=== PATIENT | male | born 1955 | race Caucasian/White ===

== ENCOUNTER 2019-04-06 19:47 | Emergency (ER) | payer BC ==
[2019-04-06] MEDS ORDERED: Albuterol/Ipratropium 3.0-0.5 MG/3 ML Neb Soln NEB ONE (20:19)
[2019-04-06] MEDS ORDERED: LORazepam 2 MG/ML SDV IVPUSH ONE (20:20)
--- NOTE | 2019-04-06 20:24 | EDM.PDOC ---
ED HPI GENERAL MEDICAL PROBLEM - General Chief Complaint: Cardiovascular Problem Stated Complaint: SOB Time Seen by Provider: 04/06/19 20:09 Source of Information: Reports: Patient History Limitations: Reports: No Limitations - History of Present Illness INITIAL COMMENTS - FREE TEXT/NARRATIVE: 63 y/o male presents to ER with cc sudden on set SOB. He states he was watching TV when it became harder for him to breath. He states he went to [place] today and had a left kidney biopsy. He does have a history of CHF, HTN and he didn't take his medications until late today. He states it is hard for him to take a deep breath. He was 85 % on room air upon arrival. After 2 L NC applied his saturation is 91-94%. He is accompanied by his . Onset: Today, Sudden Onset Date: 04/06/19 Onset Time: 19:30 Duration: Getting Worse Location: Reports: Chest Severity: Mild Improves with: Reports: None Worsens with: Reports: Breathing Associated Symptoms: Reports: Shortness of Breath. 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 (see below) Other Treatments TRUCK GUARD: oxygen Headache Pain Score (Numeric/FACES): 8 Left Flank Pain Score (Numeric/FACES): 6 - Related Data Allergies Allergy/AdvReac Type Severity Reaction Status Date / Time Penicillins Allergy Hives Verified 04/06/19 22:13 Sulfa (Sulfonamide Allergy Hives Verified 04/06/19 22:13 Antibiotics) Home Meds: Home Meds Albuterol [Ventolin HFA] 2 puff INH Q4H PRN #1 inhaler 06/18/18 [Rx] FLUoxetine HCl [Prozac] 10 mg PO DAILY 06/18/18 [History] Potassium Chloride [Klor-Con 10] 10 meq PO DAILY 09/13/18 [History] Tresiba 22 unit SQ DAILY 09/13/18 [History] Carvedilol [Coreg] 12.5 mg PO BID #0 09/19/18 [Rx] Cholecalciferol (Vitamin D3) [Vitamin D3] 1,000 unit PO DAILY #30 tablet [Rx] Eplerenone [Inspra] 12.5 mg PO DAILY #30 tab 09/19/18 [Rx] Furosemide 40 mg PO ASDIRECTED #0 09/19/18 [Rx] Hydrocodone/Acetaminophen [[place] 5-325 Tablet] 1 each PO Q6H #16 tablet [Rx] Lisinopril 10 mg PO DAILY #30 tablet 09/19/18 [Rx] Nicotine [Habitrol] 21 mg TRDERM DAILY #30 patch 09/19/18 [Rx] Rosuvastatin [Crestor] 10 mg PO BEDTIME #30 tablet 09/19/18 [Rx] amLODIPine Besylate [Amlodipine Besylate] 5 mg PO DAILY #0 09/19/18 [Rx] hydroCHLOROthiazide [Hydrochlorothiazide] 12.5 mg PO BID #0 09/19/18 [Rx] Past Medical History HEENT History: Reports: Hard of Hearing, Impaired Vision Other HEENT History: wears eyeglasses for driving only, left glasses at home Cardiovascular History: Reports: Hypertension Respiratory History: Reports: COPD Genitourinary History: Reports: Prostate Disorder Other Genitourinary History: Braccia procedure.; left kidney biopsy Neurological History: Reports: Migraines Psychiatric History: Reports: Anxiety Endocrine/Metabolic History: Reports: Diabetes, Type II Oncologic (Cancer) History: Reports: Prostate - Past Surgical History Cardiovascular Surgical History: Reports: None GI Surgical History: Reports: Appendectomy Social & Family History - Family History Family Medical History: Noncontributory Cardiac: Reports: Heart Failure Respiratory: Reports: Asthma - Caffeine Use Caffeine Use: Reports: Coffee, Tea - Living Situation & Occupation Living situation: Reports: Occupation: Employed ED ROS GENERAL - Review of Systems Review Of Systems: See Below Constitutional: Denies: Fever, Chills HEENT: Reports: No Symptoms Respiratory: Reports: Shortness of Breath Cardiovascular: Reports: Dyspnea on Exertion. Denies: Chest Pain Endocrine: Reports: No Symptoms GI/Abdominal: Reports: No Symptoms, Other ED EXAM, GENERAL - Physical Exam Exam: See Below Exam Limited By: No Limitations General Appearance: Alert, WD/WN, No Apparent Distress Respiratory/Chest: Decreased Breath Sounds, Crackles, Wheezing, Accessory Muscle Use Cardiovascular: Normal Peripheral Pulses, Irregularly Irregular GI/Abdominal: Normal Bowel Sounds, Soft, Non-Tender, No Organomegaly, No Distention, No Abnormal Bruit, No Mass, Pelvis Stable Back Exam: Normal Inspection, Full Range of Motion Extremities: Normal Inspection, Normal Range of Motion, Non-Tender, No Pedal Edema, Normal Capillary Refill Neurological: Alert, Oriented, CN II-XII Intact, Normal Cognition, Normal Gait Psychiatric: Normal Affect, Anxious Skin Exam: Warm, Dry, Intact, Normal Color, No Rash Lymphatic: No Adenopathy EKG INTERPRETATION EKG Date: 04/06/19 Time: 20:01 Rhythm: Other (sinus tachycardia) Rate (Beats/Min): 105 EKG Interpretation Comments: sinus tachycardia at 105 min. multiple unifocal pvc's trigeminy. Early r wave transition consider septal hypertrophy. T wave flatteing AVL lt atrial enlargement QTC mildly prolonged. Course - Vital Signs Last Recorded V/S: Last Vital Signs Temp 98.8 F 04/06/19 20:07 Pulse 104 H 04/06/19 20:07 Resp 30 H 04/06/19 20:07 BP 172/94 H 04/06/19 22:38 Pulse Ox 94 L 04/06/19 20:30 - Orders/Labs/Meds Orders: Active Orders 24 hr Category Date Time Status EKG Documentation Completion [RC] STAT Care 04/06/19 20:10 Active RT Aerosol Therapy [RC] ASDIRECTED Care 04/06/19 20:19 Active Abdomen Pelvis w Cont [CT] Stat Exams 04/06/19 22:23 Taken Chest 2V [CR] Stat Exams 04/06/19 20:10 Taken Furosemide [Lasix] Med 04/06/19 20:30 Active 40 mg IVPUSH DAILY Sodium Chloride 0.9% [Normal Saline] 100 ml Med 04/06/19 22:45 Active IV ASDIRECTED Sodium Chloride 0.9% [Saline Flush] Med 04/06/19 22:41 Active 10 ml FLUSH ONETIME PRN amLODIPine [Norvasc] Med 04/06/19 22:34 Active 10 mg PO BEDTIME Medication Orders Amlodipine Besylate (Norvasc) 10 mg PO BEDTIME [facility] Last Admin: 04/06/19 22:38 Dose: 10 mg Furosemide (Lasix) 40 mg IVPUSH DAILY [facility] Last Admin: 04/06/19 20:26 Dose: 40 mg Sodium Chloride (Normal Saline) 100 mls @ 75 mls/hr IV ASDIRECTED [facility] Last Admin: 04/06/19 22:59 Dose: 75 mls/hr Sodium Chloride (Saline Flush) 10 ml FLUSH ONETIME PRN PRN Reason: IV FLUSH Last Admin: 04/06/19 22:59 Dose: 10 ml Labs: Laboratory Tests 04/06/19 04/06/19 04/06/19 Range/Units 20:10 20:10 20:10 WBC 11.54 H (4.23-9.07) K/mm3 RBC 4.71 (4.63-6.08) M/mm3 Hgb 13.2 L (13.7-17.5) gm/L Hct 40.9 (40.1-51.0) % MCV 86.8 (79.0-92.2) fl MCH 28.0 (25.7-32.2) pg MCHC 32.3 (32.2-35.5) g/dl RDW Std Deviation 44.2 H (35.1-43.9) fL Plt Count 190 (163-337) K/mm3 MPV 11.0 (9.4-12.3) fl Neut % (Auto) 72.2 H (34.0-67.9) % Lymph % (Auto) 13.4 L (21.8-53.1) % [place] % (Auto) 10.1 (5.3-12.2) % Eos % (Auto) 3.6 (0.8-7.0) Baso % (Auto) 0.4 (0.1-1.2) % Neut # (Auto) 8.33 H (1.78-5.38) K/mm3 Lymph # (Auto) 1.55 (1.32-3.57) K/mm3 [place]assen # (Auto) 1.17 H (0.30-0.82) K/mm3 Eos # (Auto) 0.41 (0.04-0.54) K/mm3 Baso # (Auto) 0.05 (0.01-0.08) K/mm3 Sodium 142 (136-145) mEq/L Potassium 4.2 (3.5-5.1) mEq/L Chloride 107 (98-107) mEq/L Carbon Dioxide 24 (21-32) mEq/L Anion Gap 15.2 H (5-15) BUN 27 H (7-18) mg/dL Creatinine 1.4 H (0.7-1.3) mg/dL Est Cr Clr Drug Dosing 57.21 mL/min Estimated GFR (MDRD) 52 (>60) mL/min BUN/Creatinine Ratio 19.3 H (14-18) Glucose 166 H (80-115) mg/dL Calcium 8.9 (8.5-10.1) mg/dL Total Bilirubin 0.6 (0.2-1.0) mg/dL AST 33 (15-37) U/L ALT 38 (16-63) U/L Alkaline Phosphatase 118 H (46-116) U/L NT-Pro-B Natriuret Pep 2888 H (0-125) pg/mL Total Protein 7.1 (6.4-8.2) g/dl Albumin 3.4 (3.4-5.0) g/dl Globulin 3.7 gm/dL Albumin/Globulin Ratio 0.9 L (1-2) Meds: Medications Generic Name Dose Route Start Last Admin Trade Name Karen PRN Reason Stop Dose Admin Amlodipine Besylate 10 mg 04/06/19 22:34 04/06/19 22:38 Norvasc PO 10 mg BEDTIME [facility] Administration Furosemide 40 mg 04/06/19 20:30 04/06/19 20:26 Lasix IVPUSH 40 mg DAILY [facility] Administration Sodium Chloride 100 mls @ 75 mls/hr 04/06/19 22:45 04/06/19 22:59 Normal Saline IV 75 mls/hr ASDIRECTED [facility] Administration Sodium Chloride 10 ml 04/06/19 22:41 04/06/19 22:59 Saline Flush FLUSH 10 ml ONETIME PRN Administration IV FLUSH Discontinued Medications Generic Name Dose Route Start Last Admin Trade Name Karen PRN Reason Stop Dose Admin Albuterol/Ipratropium 3 ml 04/06/19 20:19 04/06/19 20:28 Duoneb 3.0-0.5 Mg/3 Ml NEB 04/06/19 20:20 3 ml ONETIME ONE Administration Amlodipine Besylate 10 mg 04/06/19 21:00 Norvasc PO BEDTIME [facility] Hydralazine HCl 10 mg 04/06/19 20:55 04/06/19 21:12 Apresoline IVPUSH 04/06/19 20:56 10 mg ONETIME ONE Administration Hydralazine HCl 10 mg 04/06/19 22:25 04/06/19 22:33 Apresoline IVPUSH 04/06/19 22:26 10 mg ONETIME ONE Administration Iohexol 100 ml 04/06/19 22:41 04/06/19 22:59 Omnipaque-300 IVPUSH 04/06/19 22:42 80 ml ONETIME ONE Administration Lorazepam 1 mg 04/06/19 20:20 04/06/19 20:27 Ativan IVPUSH 04/06/19 20:21 1 mg ONETIME ONE Administration - Re-Assessments/Exams Free Text/Narrative Re-Assessment/Exam: 04/06/19 22:52 WBC 11.54 RBC 4.71 H & H 13.2/40.9 Na+ 142 K + 4.2 chl 107 co2 24 bun 27 creatine 1.4 gfr 52 glucose 166 alk phos 118 BNP 2888. cxr revealed left lower lobe vascular congestion. Patient is resting comfortably after receiving medications. His B/P remains elevated 180/99 I will add Norvasc 10 and additional dose of hydralazine 10 mg ivp. 04/06/19 22:55 He continues to have low saturation on room air 90%. I will get a abdominal CT for further evaluation 04/06/19 23:[address] reveals no acute findings. I will discharge home with instructions to take Lasix in am as scheduled with extra dose at 1400. Instructed him to take his B/P medications as prescribed. Instructed to return to the ER for any new or acute worsening symptoms. Patient and verbalized understanding. He is stable and comfortable with plan for discharge. His oxygen saturation is 94 % on room air. Departure - Departure Time of Disposition: 23:28 Disposition: Home, Self-Care 01 Condition: Good Clinical Impression: Hypertensive heart disease Qualifiers: Heart failure presence: with heart failure Heart failure type: unspecified Qualified Code(s): I11.0 - Hypertensive heart disease with heart failure Congestive heart failure (CHF) Qualifiers: Heart failure type: unspecified Heart failure chronicity: acute Qualified Code( s): I50.9 - Heart failure, unspecified Instructions: Shortness of Breath, Adult, [id number], Heart Failure Action Plan, Hypertension, [id number], Heart Failure Referrals: Roxie Alfaro DOOR PANELER [Primary Care Provider] - Forms: ED Department Discharge Additional Instructions: You have been diagnosis with hypertension and congestive heart failure. Take your Lasix as prescribed in the morning and take a extra dose at 1400 tomorrow only. Follow up with your PCP for evaluation and treatment for your hypertension. Return to the ER for any new or acute worsening symptoms. - My Orders Last 24 Hours: My Active Orders 04/06/19 20:10 EKG Documentation Completion [RC] STAT Chest 2V [CR] Stat 04/06/19 20:19 RT Aerosol Therapy [RC] ASDIRECTED 04/06/19 20:30 Furosemide [Lasix] 40 mg IVPUSH DAILY 04/06/19 22:23 Abdomen Pelvis w Cont [CT] Stat 04/06/19 22:34 amLODIPine [Norvasc] 10 mg PO BEDTIME 04/06/19 22:41 Sodium Chloride 0.9% [Saline Flush] 10 ml FLUSH ONETIME PRN 04/06/19 22:45 Sodium Chloride 0.9% [Normal Saline] 100 ml IV ASDIRECTED - Assessment/Plan Last 24 Hours: My Active Orders 04/06/19 20:10 EKG Documentation Completion [RC] STAT Chest 2V [CR] Stat 04/06/19 20:19 RT Aerosol Therapy [RC] ASDIRECTED 04/06/19 20:30 Furosemide [Lasix] 40 mg IVPUSH DAILY 04/06/19 22:23 Abdomen Pelvis w Cont [CT] Stat 04/06/19 22:34 amLODIPine [Norvasc] 10 mg PO BEDTIME 04/06/19 22:41 Sodium Chloride 0.9% [Saline Flush] 10 ml FLUSH ONETIME PRN 04/06/19 22:45 Sodium Chloride 0.9% [Normal Saline] 100 ml IV ASDIRECTED
[2019-04-06] MEDS ORDERED: Furosemide 40 MG/4 ML VIAL IVPUSH SCH (20:30)
[2019-04-06] MEDS ORDERED: hydrALAZINE 20 MG/ML SDV IVPUSH ONE ×2 (20:55→22:25)
[2019-04-06] MEDS ORDERED: amLODIPine 10 MG Tab PO SCH ×2 (21:00→22:34)
[2019-04-06] MEDS ORDERED: Iohexol 647 MG/ML 100 ML Bottle IVPUSH ONE (22:41)
[2019-04-06] MEDS ORDERED: Sodium Chloride 0.9% 10 ML Syringe FLUSH PRN (22:41)
[2019-04-06] MEDS ORDERED: Sodium Chloride 0.9% 100 ML IV SCH (22:45)
--- NOTE | 2019-04-09 07:28 | CR ---
Chest: Two views of the chest are obtained. Comparison: Prior chest x-ray of 02/09/19. Heart size is felt to be within normal limits. Increased perihilar markings are noted. Tortuous thoracic aorta is seen. Chronic blunting of the lateral costophrenic angle is seen. Bony structures are within normal limits for the patient's age. Impression: 1. Increased central lung markings. Please correlate if patient has infectious symptoms for this to represent bronchitis. Differential also includes pulmonary vascular congestion if patient has had acute cardiac event. 2. No other acute abnormality is seen. Diagnostic code #3
--- NOTE | 2019-04-09 08:04 | CT ---
CT abdomen and pelvis Technique: Multiple axial sections were obtained from above the dome of the diaphragm inferiorly to the iliac crests. Study was obtained 45 seconds after contrast administration. 70 second delayed images were then obtained from above the dome of the diaphragm inferiorly to the iliac crest. 5 minute delayed images were then obtained from above the kidneys inferiorly through the pubic symphysis. Comparison: No prior CT abdomen or pelvis exam. Previous renal ultrasound study of 11/28/18. Findings: Small portion of the visualized lung bases shows minimal atelectasis. Liver contains a small low density finding within the left lobe measuring approximately 9 mm. This is most likely due to a minimal cyst. No additional abnormality is appreciated within the liver. Gallbladder contains no calcified gallstones. Spleen appears within normal limits. Adrenal glands show no nodule. Pancreas is within normal limits. Aorta shows atherosclerotic calcification without aneurysm. Mildly prominent lymph nodes are seen within the retroperitoneum. Largest lymph node measures about 1.5 cm in size. Inflammatory change is noted around the inferior left kidney compatible with previous renal biopsy. No hematoma is seen. Small amount of air is seen within the retroperitoneum compatible with previous biopsy. Delayed images show no contrast extravasation from the kidneys. Ureters show contrast with no dilatation. No obstruction is seen with contrast seen within the bladder. Prostate radiation implants are noted. No bowel dilatation is seen. No free fluid is seen. Bone window settings were reviewed which show scattered degenerative change within the spine. Mild diverticuli are seen within the sigmoid and descending colon without diverticulitis. Appendix not definitely visualized. Impression: 1. Slight inflammatory change around the left lower kidney compatible with previous biopsy. Air is noted within the retroperitoneal fat around the left kidney compatible with previous biopsy. No significant perinephric hematoma is seen. 2. Mild atelectasis within both lung bases. 3. Mildly prominent retroperitoneal lymph nodes which are nonspecific. Follow-up CT study could be considered in 6 months to evaluate for stability. 4. Other incidental findings as noted above. Diagnostic code #3 I agree with preliminary report from [facility], finalized on 04/07/19, 12:45 AM Central Time
== END 2019-04-06 23:45 | disposition home or self-care (01) ==
LOC: JD.ED 19:47
DX: I11.0 Hypertensive heart disease with heart failure (principal); I50.9 Heart failure, unspecified; J44.9 Chronic obstructive pulmonary disease, unspecified; E11.9 Type 2 diabetes mellitus without complications; Z79.899 Other long term (current) drug therapy; Z88.0 Allergy status to penicillin; Z88.2 Allergy status to sulfonamides
CPT/HCPCS: 36415; 71046; 74177; 80053; 83880; 85025; 93005; 94640; 96374; 96375; 96376; 99285; A9270; J0360; J1940; J2060; J7030; Q9967; 93010; 99284; J7620-GY

== ENCOUNTER 2019-05-22 18:56 | Inpatient (IN) | payer BC ==
--- NOTE | 2019-05-22 21:38 | EDM.PDOC ---
ED HPI GENERAL MEDICAL PROBLEM - General Chief Complaint: Cardiovascular Problem Stated Complaint: CHEST PAIN Time Seen by Provider: 05/22/19 21:19 Source of Information: Reports: Patient, Old Records, RN Notes Reviewed History Limitations: Reports: No Limitations - History of Present Illness INITIAL COMMENTS - FREE TEXT/NARRATIVE: The patient states that he has had shortness of breath, both with exertion and even at rest, coming and going for the past week. He reports mild orthopnea that is chronic, and unchanged. He reports lower extremity edema for within 2 months. 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 He reports a dry cough, occasionally productive of clear sputum, for the past week. He reports nausea and vomiting for the past month. He states that he sometimes feels clammy or sweaty. The patient also reports a squeezing sensation felt across his chest along with a retrosternal dull ache, that has been coming and going over the past week. He states it is a discomfort, not a pain. The discomfort will typically last about one hour, and recur several times a day. It may come on even if the patient is at rest, although is most likely to occur if the patient is feeling stressed or angry. He has had 3-4 episodes today, and he reports that he has had increased stress and anger today, because his left him today. He denies similar symptoms prior to a week ago. The patient is not sure if he has been wheezing or not. He has not had a fever. He reports occasional palpitations, noting some irregular beats, for the past 2 weeks. The patient has a long-standing history of smoking, but states that he quit ( more or less) about 2 weeks ago. The patient has a history of diastolic CHF. An echocardiogram performed on 09/14 (gleaned from a progress note 09/15/2018) reportedly demonstrated a left ventricular ejection fraction of 55-60%, but with grade 2 diastolic CHF. There was probable pulmonary hypertension, and a septal bounce thought due to increased RV pressure. Also noted was septal flattening and a D-shaped left ventricle, however, there were no regional wall motion defects. The patient's PCP is Roxie Alfaro. He has an appointment to see her this coming 05/25/2019 at 07:30. The patient's Psychiatrist is in [place]. He does not recall her name at this time. Chest Pain Score (Numeric/FACES): 6 - Related Data Allergies Allergy/AdvReac Type Severity Reaction Status Date / Time Penicillins Allergy Hives Verified 04/06/19 22:13 Sulfa (Sulfonamide Allergy Hives Verified 04/06/19 22:13 Antibiotics) Home Meds: Home Meds Albuterol [Ventolin HFA] 2 puff INH Q4H PRN #1 inhaler 06/18/18 [Rx] FLUoxetine HCl [Prozac] 10 mg PO BEDTIME 06/18/18 [History] Carvedilol [Coreg] 12.5 mg PO BID #0 09/19/18 [Rx] Cholecalciferol (Vitamin D3) [Vitamin D3] 1,000 unit PO DAILY #30 tablet [Rx] Eplerenone [Inspra] 12.5 mg PO DAILY #30 tab 09/19/18 [Rx] Furosemide 40 mg PO ASDIRECTED #0 09/19/18 [Rx] Rosuvastatin [Crestor] 10 mg PO BEDTIME #30 tablet 09/19/18 [Rx] Albuterol Sulfate [Proair Respiclick] 90 mcg IH BID 60 Days [email or web address] [Rx] Losartan [Cozaar] 100 mg PO DAILY tablet 05/23/19 [Rx] Nicotine [Nicoderm CQ] 7 mg TD DAILY #30 patch 05/23/19 [Rx] Tresiba 20 unit SQ ASDIRECTED PRN 90 Days #90 device 05/23/19 [Rx] amLODIPine [Norvasc] 5 mg PO DAILY #90 tablet 05/23/19 [Rx] Past Medical History HEENT History: Reports: Hard of Hearing, Impaired Vision (diabetic retinopathy) Other HEENT History: wears eyeglasses for driving only Cardiovascular History: Reports: Heart Failure (diastolic), High Cholesterol, Hypertension Respiratory History: Reports: Sleep Apnea (nightly CPAP 9) Gastrointestinal History: Reports: Diverticulosis (diverticulitis) Genitourinary History: Reports: Diabetic Nephropathy Musculoskeletal History: Reports: Arthritis (right thumb) Neurological History: Reports: Migraines Psychiatric History: Reports: Anxiety, Depression Endocrine/Metabolic History: Reports: Diabetes, Type II, Obesity/BMI 30+ Oncologic (Cancer) History: Reports: Prostate (s/p brachytherapy) - Past Surgical History GI Surgical History: Reports: Appendectomy, EGD (x 1). Denies: Colonoscopy Male Surgical History: Reports: Other (See Below) (Left kidney biopsy) Oncologic Surgical History: Reports: Other (See Below) (Prostate brachytherapy) Social & Family History - Family History Family Medical History: Noncontributory Cardiac: Reports: Heart Failure Respiratory: Reports: Asthma - Tobacco Use Smoking Status *Q: Current Every Day Smoker Years of Tobacco use: 48 Packs/Tins Daily: 3 - Caffeine Use Caffeine Use: Reports: Coffee, Energy Drinks, Soda - Alcohol Use Alcohol Use History: Yes Alcohol Use Frequency: Rarely - Recreational Drug Use Recreational Drug Use: Yes Drug Use in Last 12 Months: Yes Recreational Drug Type: Reports: Marijuana/Hashish (CBD oil) - Living Situation & Occupation Living situation: Reports: , with Spouse 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 ED EXAM, GENERAL - Physical Exam Exam: See Below Exam Limited By: No Limitations General Appearance: Alert, WD/WN, No Apparent Distress Eye Exam: Bilateral Eye: EOMI, Normal Inspection Ears: Normal External Exam, Hearing Grossly Normal Nose: Normal Inspection Throat/Mouth: Normal Inspection, Normal Lips, Normal Voice, No Airway Compromise Head: Atraumatic, Normocephalic Neck: Normal Inspection, Full Range of Motion Respiratory/Chest: No Respiratory Distress, Lungs Clear, Normal Breath Sounds, No Accessory Muscle Use Cardiovascular: Normal Peripheral Pulses, Regular Rate, Rhythm, No Gallop, No JVD, No Murmur, No Rub, Extra Beats (frequent premature) Peripheral Pulses: 4+: Radial (L), Radial (R) GI/Abdominal: Normal Bowel Sounds, Soft, Non-Tender, No Organomegaly, No Distention, No Abnormal Bruit, No Mass, Other (Obese) (Male) Exam: Deferred Rectal (Males) Exam: Deferred Back Exam: Normal Inspection, Full Range of Motion, NT Extremities: Normal Inspection, Normal Range of Motion, Normal Capillary Refill , Other (2+ pitting pretibial edema bilaterally) Neurological: Alert, Oriented, Normal Cognition, No Motor/Sensory Deficits Psychiatric: Normal Affect Skin Exam: Warm, Dry, Intact, Normal Color, No Rash EKG INTERPRETATION EKG Date: 05/22/19 Time: 19:06 Rhythm: Other (Sinus tachycardia with bigeminy/trigeminy) Rate (Beats/Min): 102 Water View: Normal P-Wave: Present QRS: Normal ST-T: Normal QT: Prolonged (QTc 518 ms) Comparison: No Change (Trigeminy on 04/06/2019) Course - Vital Signs Last Recorded V/S: Last Vital Signs Temp 36.2 C 05/23/19 12:43 Pulse 85 05/23/19 12:43 Resp 14 05/23/19 12:43 BP 149/94 H 05/23/19 12:44 Pulse Ox 99 05/23/19 12:43 - Orders/Labs/Meds Labs: Laboratory Tests 05/22/19 05/22/19 05/22/19 Range/Units 19:05 19:05 19:05 WBC 9.23 H (4.23-9.07) K/mm3 RBC 4.46 L (4.63-6.08) M/mm3 Hgb 12.7 L (13.7-17.5) gm/L Hct 39.8 L (40.1-51.0) % MCV 89.2 (79.0-92.2) fl MCH 28.5 (25.7-32.2) pg MCHC 31.9 L (32.2-35.5) g/dl RDW Std Deviation 48.2 H (35.1-43.9) fL Plt Count 193 (163-337) K/mm3 MPV 11.9 (9.4-12.3) fl Neutrophils % (Manual) 67 H (40-60) % Band Neutrophils % 0 (0-10) % Lymphocytes % (Manual) 18 L (20-40) % Atypical Lymphs % 0 % Monocytes % (Manual) 11 H (2-10) % Eosinophils % (Manual) 2 (0.8-7.0) % Basophils % (Manual) 1 (0.2-1.2) Myelocytes % 1 Platelet Estimate Adequate Plt Morphology Comment Normal RBC Morph Comment Normal D-Dimer, Quantitative (0.19-0.50) mg/L Sodium 145 (136-145) mEq/L Potassium 4.2 (3.5-5.1) mEq/L Chloride 108 H (98-107) mEq/L Carbon Dioxide 26 (21-32) mEq/L Anion Gap 15.2 H (5-15) BUN 35 H (7-18) mg/dL Creatinine 1.7 H (0.7-1.3) mg/dL Est Cr Clr Drug Dosing 47.12 mL/min Estimated GFR (MDRD) 41 (>60) mL/min BUN/Creatinine Ratio 20.6 H (14-18) Glucose 139 H (80-115) mg/dL Calcium 9.3 (8.5-10.1) mg/dL Total Bilirubin 0.8 (0.2-1.0) mg/dL AST 30 (15-37) U/L ALT 36 (16-63) U/L Alkaline Phosphatase 117 H (46-116) U/L Troponin I 0.027 (0.00-0.056) ng/mL NT-Pro-B Natriuret Pep 7319 H (0-125) pg/mL Total Protein 7.1 (6.4-8.2) g/dl Albumin 3.4 (3.4-5.0) g/dl Globulin 3.7 gm/dL Albumin/Globulin Ratio 0.9 L (1-2) 05/22/19 Range/Units 19:05 WBC (4.23-9.07) K/mm3 RBC (4.63-6.08) M/mm3 Hgb (13.7-17.5) gm/L Hct (40.1-51.0) % MCV (79.0-92.2) fl MCH (25.7-32.2) pg MCHC (32.2-35.5) g/dl RDW Std Deviation (35.1-43.9) fL Plt Count (163-337) K/mm3 MPV (9.4-12.3) fl Neutrophils % (Manual) (40-60) % Band Neutrophils % (0-10) % Lymphocytes % (Manual) (20-40) % Atypical Lymphs % % Monocytes % (Manual) (2-10) % Eosinophils % (Manual) (0.8-7.0) % Basophils % (Manual) (0.2-1.2) Myelocytes % Platelet Estimate Plt Morphology Comment RBC Morph Comment D-Dimer, Quantitative 1.30 H (0.19-0.50) mg/L Sodium (136-145) mEq/L Potassium (3.5-5.1) mEq/L Chloride (98-107) mEq/L Carbon Dioxide (21-32) mEq/L Anion Gap (5-15) BUN (7-18) mg/dL Creatinine (0.7-1.3) mg/dL Est Cr Clr Drug Dosing mL/min Estimated GFR (MDRD) (>60) mL/min BUN/Creatinine Ratio (14-18) Glucose (80-115) mg/dL Calcium (8.5-10.1) mg/dL Total Bilirubin (0.2-1.0) mg/dL AST (15-37) U/L ALT (16-63) U/L Alkaline Phosphatase (46-116) U/L Troponin I (0.00-0.056) ng/mL NT-Pro-B Natriuret Pep (0-125) pg/mL Total Protein (6.4-8.2) g/dl Albumin (3.4-5.0) g/dl Globulin gm/dL Albumin/Globulin Ratio (1-2) Meds: Medications Discontinued Medications Generic Name Dose Route Start Last Admin Trade Name Freq PRN Reason Stop Dose Admin Albuterol 0 gm 05/23/19 01:22 Proventil Hfa INH Q4H PRN WHEEZING Amlodipine Besylate 5 mg 05/23/19 00:08 05/23/19 00:14 Norvasc PO 05/23/19 00:09 5 mg ONETIME ONE Administration Amlodipine Besylate 5 mg 05/23/19 06:30 05/23/19 06:45 Norvasc PO 5 mg DAILY [facility] Administration Amlodipine Besylate 5 mg 05/23/19 08:08 05/23/19 08:10 Norvasc PO 05/23/19 08:09 5 mg ONETIME ONE Administration Carvedilol 12.5 mg 05/23/19 07:00 05/23/19 06:15 Coreg PO 12.5 mg BIDMEALS [facility] Administration Carvedilol 12.5 mg 05/23/19 06:33 05/23/19 06:45 Coreg PO 05/23/19 06:34 12.5 mg ONETIME ONE Administration Cholecalciferol 25 mcg 05/23/19 09:00 05/23/19 09:41 Vitamin D3 PO 25 mcg DAILY [facility] Administration Clonidine HCl 0.1 mg 05/22/19 22:59 05/22/19 23:14 Catapres PO 05/22/19 23:00 0.1 mg ONETIME ONE Administration Fluoxetine HCl 10 mg 05/23/19 09:00 05/23/19 09:42 Prozac PO 10 mg DAILY [facility] Administration Furosemide 40 mg 05/22/19 23:27 05/22/19 23:47 Lasix IVPUSH 05/22/19 23:28 40 mg NOW ONE Administration Furosemide 40 mg 05/23/19 01:00 Lasix PO ASDIRECTED [facility] Furosemide 40 mg 05/23/19 06:29 05/23/19 06:45 Lasix IVPUSH 05/23/19 06:30 40 mg NOW ONE Administration Lisinopril 10 mg 05/23/19 09:00 Prinivil PO DAILY [facility] Losartan Potassium 100 mg 05/23/19 09:00 05/23/19 09:41 Cozaar PO 100 mg DAILY [facility] Administration Metoprolol Tartrate 5 mg 05/23/19 00:49 05/23/19 01:06 Lopressor IVPUSH 05/23/19 00:50 5 mg ONETIME ONE Administration Miscellaneous Information 1 ea 05/23/19 09:00 Remove Patch TRDERM DAILY [facility] Miscellaneous Information 1 ea 05/23/19 09:00 05/23/19 09:43 Remove Patch TRDERM 1 ea DAILY [facility] Administration Nicotine 14 mg 05/23/19 09:00 Habitrol TRDERM DAILY [facility] Nicotine 21 mg 05/23/19 09:00 Habitrol TRDERM DAILY [facility] Nicotine 21 mg 05/23/19 02:00 05/23/19 09:43 Habitrol TRDERM 21 mg DAILY [facility] Administration Non-Formulary Medication 20 unit 05/23/19 01:00 Tresiba SQ ASDIRECTED [facility] Eplerenone [Inspra] 0 each 05/23/19 09:00 05/23/19 09:42 12.5 Mg PO Not Given DAILY [facility] Potassium Chloride 10 meq 05/23/19 09:00 05/23/19 09:42 Klor-Con 10 PO 10 meq DAILY [facility] Administration Regadenoson 0.4 mg 05/23/19 08:31 05/23/19 08:39 Lexiscan IVPUSH 05/23/19 08:32 0.4 mg ONETIME ONE Administration Rosuvastatin Calcium 10 mg 05/23/19 21:00 Crestor PO BEDTIME [facility] Sodium Chloride 10 ml 05/23/19 00:42 Saline Flush FLUSH ASDIRECTED PRN Keep Vein Open Temazepam 15 mg 05/23/19 00:42 05/23/19 01:51 Restoril PO 15 mg BEDTIME PRN Administration Sleep - Re-Assessments/Exams Free Text/Narrative Re-Assessment/Exam: 05/22/19 21:31 Portable chest radiograph reviewed. The cardiac silhouette is at the upper limits of normal. There is likely mild pulmonary vascular congestion. There is some blunting of the left costophrenic angle, but no obvious pleural effusion seen on this AP view. No focal infiltrate. No pneumothorax. Mild thoracic scoliosis incidentally noted. Formal read per the Radiologist pending. 05/22/19 22:38 The patient's CBC is remarkable for WBC count mildly elevated at 9.23, but with 0% bandemia. His H/H is mildly depressed at 12.7/39.8. The remainder of the CBC is unremarkable. His CMP is remarkable for chloride slightly elevated at 108, BUN/Cr elevated at 35/1.7, and a blood glucose elevated at 139. The remainder of the CMP is unremarkable. His BUN/Cr were elevated at 27/1.4 on 04/06/2019, and 28/1.7 on . His troponin is within normal limits. His D-dimer is modestly elevated at 1.30. Notified by lab that the analyzer for a BNP is down, and will not be available tonight. 05/22/19 22:49 Even though we do not have a BNP, I suspect that many of the patient's symptoms are due to fluid overload. I am more concerned, however, about the patient's description of a squeezing chest discomfort felt across his chest, along with a retrosternal dull ache, dyspnea, nausea, and feeling clammy. I'm concerned that the patient may be suffering from some mild cardiac ischemia. I'm also concerned about the patient's uncontrolled high blood pressure. I recommended that we admit the patient for a cardiac stress test, gentle diuresis, and control of his blood pressure. The patient agreed. In the interim, I have ordered clonidine 0.1 mg po. 05/22/19 22:[address] Zamarripa. He has agreed to admit the patient. Departure - Departure Time of Disposition: 22:59 Disposition: Admitted As Inpatient 68 Condition: Fair Clinical Impression: Heart failure, diastolic, with acute decompensation, Fluid overload, Chest discomfort, Nausea and vomiting, Diaphoresis, Cough Dyspnea Qualifiers: Dyspnea type: acute respiratory distress Qualified Code(s): R06.03 - Acute respiratory distress
[2019-05-22] MEDS ORDERED: cloNIDine 0.1 MG Tab PO ONE (22:59)
[2019-05-22] MEDS ORDERED: Furosemide 40 MG/4 ML VIAL IVPUSH ONE (23:27)
[2019-05-23] MEDS ORDERED: amLODIPine 5 MG Tab PO ONE ×2 (00:08→08:08)
[2019-05-23] MEDS ORDERED: Temazepam 15 MG Cap PO PRN (00:42)
[2019-05-23] MEDS ORDERED: Sodium Chloride 0.9% 10 ML Syringe FLUSH PRN (00:42)
[2019-05-23] MEDS ORDERED: Metoprolol Tartrate 5 MG/5 ML SDV IVPUSH ONE (00:49)
[2019-05-23] MEDS ORDERED: Furosemide 80 MG Tab PO SCH (01:00)
[2019-05-23] MEDS ORDERED: TRESIBA 20 UNIT SQ SCH (01:00)
[2019-05-23] MEDS ORDERED: Albuterol 6.7 GM Inhaler INH PRN (01:22)
[2019-05-23] MEDS: Nicotine 21 MG/24 Hr Patch TRDERM SCH ×2 (02:14→09:43)
[2019-05-23] MEDS ORDERED: Furosemide 40 MG/4 ML VIAL IVPUSH ONE (06:29)
[2019-05-23] MEDS ORDERED: amLODIPine 5 MG Tab PO SCH (06:30)
[2019-05-23] MEDS ORDERED: Carvedilol 12.5 MG Tab PO ONE (06:33)
[2019-05-23] MEDS ORDERED: Carvedilol 12.5 MG Tab PO SCH (07:00)
--- NOTE | 2019-05-23 07:19 | HP ---
DATE OF ADMISSION: 05/22/2019 A 63-year-old male admitted to Med/Surg. CHIEF COMPLAINT: 1. Increasing shortness of breath, atypical chest pain, congestive heart failure. 2. Malignant hypertension, impending pulmonary edema. 3. Chronic renal insufficiency. 4. Diabetes. 5. COPD. HISTORY OF PRESENT ILLNESS: This gentleman now presents after being recommended to report to the ER because of symptoms of chest pressure, which were sort of atypical anterior chest wall pain which comes on with coughing but also with exertion. The pain is more symmetric in both right and left-sided upper chest, but does radiate down into the lower chest. The patient describes a lower chest pressure/pain, which comes on, which feels different, more like it is heart. The patient does have a chronic cough. He is a smoker. He has been having some nasal drainage and postnasal drip, but the pain seemed very separate to him. The pain has caused some shortness of breath and he is noted to have an extremely elevated blood pressure when he presented to the ER tonight, around 210/120. The patient has had previous episodes of pulmonary edema previously, does have chronic renal failure, history of prostate cancer, history of renal insufficiency, history of diabetes, history of COPD, history of suspected coronary disease. The patient has never had an angiogram or a known cardiovascular event he states, but he has had extensive evaluations. The patient does have a history of chronic fluid retention and has been having increasing dyspnea with exertion for the past week to 10 days. The patient relates he is under a lot of stress, not only with his job, but also with his and him with an impending divorce. The patient states he has taken fairly good control of his diabetes. He used to eat fairly carefully, but now he is seeing sugars in the 90 to 120 range in the morning since starting to Trulicity and losing almost 25 pounds. The patient relates occasional nausea, but no pancreatitis episodes. No history of liver disease. The patient denies any history of hepatitis, any transfusions, or any previous reactions. The patient has been on statins, also is on Lasix high dose 80 mg per day because of creatinines in the 1.7 range. The patient has been told by Nephrology that he has about 49.5% of his kidney function left. The patient has been taking his medications, albeit less than what is prescribed by a long shot. The patient states he could not take all the medications because he did not feel well. 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 Does not always keep track of his medications names and is at times confused as to what he is taking. The patient is on 3 diuretics. The patient is on a beta sukhi, also on PUJA inhibitor, but it is unclear if he is taking these. The patient again presented with an extremely high blood pressure, increasing shortness of breath, orthopnea, atypical chest pain, and not feeling well. The patient has had no nausea or vomiting, but he has noted some skipping heartbeats which he has had chronically. The patient believes he may have atrial fibrillation previously, he has never been anticoagulated. The patient has had no DVTs or pulmonary emboli. The patient smokes about 4 cigarettes per day and is cutting down. He has been whittling this down gradually. The patient does not have current blackener, but has known diastolic dysfunction grade 2. No valvular heart disease, and he is followed by Roxie Alfaro. The patient denies anxiety, depression, or suicidal thoughts. Alcohol intake status not known. The patient relates a known history of extra heartbeats told to him by his [place] doctor, but this was many years ago. The patient has known sleep apnea and does wear his mask fairly faithfully. The patient has never been on oxygen, but does have orthopnea. The patient has occasional headaches, but these are better since starting CPAP many years ago. The patient has lost a total of about 90 pounds from his highest weight, but about 25 pounds in the last several years, and I suspect he is not currently taking insulin either long or short-acting, just [facility]. The patient does have some dysuria and does have a history of prostate cancer, but is very vague on treatment specifics, and I believe he has not had radiation implants or treatment as of yet. Apparently, he has just started doctoring for this again after a several year hiatus from seeing Urology. The patient relates mild BPH symptoms. PAST MEDICAL HISTORY: Essentially as above. Please see ER note for additional details. SOCIAL HISTORY: Smokes 4 cigarettes per day, would like to quit, would like to patch. Denies depression. Does have increased anxiety and stress. 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 Does not get a lot of exercise at all. Checks sugars twice, sometimes 3 times daily, and has for many, many years. ALLERGIES: Penicillin and sulfa, he thinks, but he is not sure. LABORATORY DATA: Evaluation in the ER showed a normal CBC with definite mild anemia, hemoglobin 11.7, but given his COPD, this is probably inappropriately low. The patient has a normal CBC otherwise. D-dimer is mildly elevated at 1.3. Troponin is negative. EKG shows bigeminy rhythm with a right bundle branch pattern, this is an atrial bigeminy. The patient has no significant ST-T wave changes, but does have Q- waves in III and AVF. The patient does have a creatinine of 1.7. BNP could not be done secondary to the analyzer being down. Chest x-ray reveals normal cardiothoracic shadows and heart shadows, but the heart silhouette is somewhat thin suggesting COPD. PHYSICAL EXAMINATION: VITAL SIGNS: Vital signs as recorded. Please note extremely elevated blood pressure on admission, gradually coming down. We have given the patient clonidine, metoprolol IV, amlodipine, and Lasix 80 mg. The patient is voiding in response to this and his blood pressure currently 146/110, pulse has been in the 40s to 50s mostly evening in a bigeminal rhythm. GENERAL: The patient is a male, in no obvious distress. Mildly diaphoretic. Eyes are slightly icteric. HEENT: Unremarkable. LUNGS: Sounds are wheezy and diffusely rhonchorous. CARDIAC: Shows a normal S1 with a bigeminal rhythm appreciated with non- transmittance to the wrist. NECK: He has no JVD. PMI not displaced. No S3 or S4 or murmur. ABDOMEN: Shows no bruits. EXTREMITIES: Show 1+ edema bilaterally. BACK: Benign. The patient's gait is unremarkable. ASSESSMENT: 1. Congestive heart failure with acute exacerbation with impending heart failure episode, contributing to that would be the patient's lack of taking his diuretics properly and other blood pressure medications. 2. Hypertensive urgency with a history of previous pulmonary edema and hypertensive urgencies. 3. The patient may have underlying coronary artery disease. Plan is to do a stress test in the morning or the next day if the patient is stable, but we will first have to bring his blood pressure down and he is starting to come down. 4. Diabetes mellitus, currently on Trulicity. Check sugars. The patient reports that his sugars are doing fairly well, but we do not know an A1c. We will check this. 5. Chronic obstructive pulmonary disease. The patient is smoking. Discussed with him the importance of him quitting, taking care of himself, avoiding bad lifestyle choices, avoiding alcohol because of his diabetes and other issues. The patient appears to have had atrial fibrillation in the past. Does have PVCs, and will need further evaluation most likely. 6. Chronic renal insufficiency. The patient is on eplerenone, Lasix, and hydrochlorothiazide. The patient's electrolytes are stable. Creatinine 1.7. BUN is elevated at 50. We will continue to monitor. 7. Mild anemia, most likely related to chronic renal insufficiency, and secondary erythropoietin deficiency, but we will check iron levels, rule out any occult bleeding. 8. Depression. The patient is under stress with recent divorce. DIOGO /[id number]
[2019-05-23] MEDS ORDERED: Lisinopril 10 MG Tab PO SCH (09:00)
[2019-05-23] MEDS ORDERED: Nicotine 14 MG/24 Hr Patch TRDERM SCH (09:00)
[2019-05-23] MEDS ORDERED: Cholecalciferol (Vitamin D3) 25 MCG Tab PO SCH (09:00)
[2019-05-23] MEDS ORDERED: Potassium Chloride 10 MEQ Tab.ER PO SCH (09:00)
[2019-05-23] MEDS ORDERED: Losartan 100 MG Tab PO SCH (09:00)
[2019-05-23] MEDS ORDERED: EPLERENONE PO SCH (09:00)
[2019-05-23] MEDS ORDERED: FLUoxetine 10 MG Cap PO SCH (09:00)
[2019-05-23] MEDS ORDERED: Nicotine 21 MG/24 Hr Patch TRDERM SCH (09:00)
--- NOTE | 2019-05-23 09:11 | CR ---
Chest: Portable view of the chest was obtained. Comparison: Prior chest x-ray of 04/06/19. Chronic pleural thickening is noted within the lateral left costophrenic angle. Lung markings are mildly increased which appear chronic. No acute parenchymal change is seen. Heart size is within normal limits for portable technique. Tortuous thoracic aorta is seen. Bony structures are grossly intact. Impression: 1. Findings believed to be chronic as described above. 2. Nothing acute is appreciated. Diagnostic code #2
--- NOTE | 2019-05-23 12:24 | PCM.DCSUM1 ---
Discharge Summary - Hospital Course Free Text/Narrative:: admitted with atypical and typical chest pain with bender and acute hypertensive urgency . ruled out mi and b.p brought down with beta sukih / lasix and amlodapine and losartan restarted enel as well . def cough and bronchitis symptoms and restarted inhaler and doing better . stress test negative and will follow up on b.p but much better and discussed factor s he has control over and needs to quit smoking . patch started he is not drinking alcohol and is not eating bad by hx. and is checking bs daily but no pp numbers . a1c down to 5.7 form 10 previously , started trulicity and lost 25 lbs not taking any insulin , but med list keeps changing and is having some emotional stress related to divorce and mild depression . discussed stroke and renal disease and hx of prostate cancer treatment and issues . offered to see psyche but he declines dc home and follow up in one week with Dr. Alfaro - Discharge Data Discharge Date: 05/23/19 Discharge Disposition: Home, Self-Care 01 Condition: Good - Discharge Diagnosis/Problem(s) (1) Chest discomfort SNOMED Code(s): 065222842 ICD Code: R07.89 - OTHER CHEST PAIN Status: Acute Priority: Medium Current Visit: Yes Onset Date: 05/23/19 Problem Details: coughing and chest wall pain symptoms (2) Cough SNOMED Code(s): 22746529 ICD Code: R05 - COUGH Status: Acute Priority: Medium Current Visit: Yes Onset Date: 05/23/19 Problem Details: stopped lisinopril and started losartin copd restarted inhaler abg okay pfts ordered (3) Diaphoresis SNOMED Code(s): 47467223 ICD Code: R61 - GENERALIZED HYPERHIDROSIS Status: Acute Current Visit: Yes Onset Date: 05/22/19 (4) Dyspnea SNOMED Code(s): 734871400 ICD Code: R06.00 - DYSPNEA, UNSPECIFIED Status: Acute Priority: High Current Visit: Yes Onset Date: 05/22/19 Problem Details: hypertensive urgancy and resolved with lasix and meds Qualifiers: Dyspnea type: acute respiratory distress Qualified Code(s): R06.03 - Acute respiratory distress (5) Chest pain SNOMED Code(s): 14245657 ICD Code: R07.9 - CHEST PAIN, UNSPECIFIED Status: Acute Priority: High Current Visit: No Onset Date: 07/02/14 Problem Details: chf like bender and aching with negative stress test ami ruled out . (6) COPD exacerbation SNOMED Code(s): 851014509 ICD Code: J44.1 - CHRONIC OBSTRUCTIVE PULMONARY DISEASE W (ACUTE) EXACERBATION Status: Acute Priority: Medium Current Visit: Yes Onset Date: 05/22/19 (7) PND (paroxysmal nocturnal dyspnea) SNOMED Code(s): 19001213 ICD Code: R06.00 - DYSPNEA, UNSPECIFIED Status: Acute Priority: Medium Current Visit: Yes Onset Date: 05/03/19 Problem Details: bronchitis (8) PND (post-nasal drip) SNOMED Code(s): 11153182 ICD Code: R09.82 - POSTNASAL DRIP Status: Acute Priority: Medium Current Visit: Yes Onset Date: 05/22/19 Problem Details: chronic cough and pnd and will not treat with antibiotic and will restart inhaler and see back after pfts / abg fair o2 73 (9) Heart failure, diastolic, with acute decompensation SNOMED Code(s): 837675049 ICD Code: I50.33 - ACUTE ON CHRONIC DIASTOLIC (CONGESTIVE) HEART FAILURE Status: Acute Current Visit: Yes - Patient Summary/Data Consults: Consultations 05/23/19 00:42 Consult to Case Management/Chemical Packager [CONS] Routine PT Evaluation and Treatment [CONS] Routine Respiratory Care Assess and Treatment [CONS] Routine - Patient Instructions Diet: Heart Healthy Diet Diet, Other: ada Activity: As Tolerated Activity, Other: start walking program Driving: May Drive Today Showering/Bathing: May Shower Notify Provider of: Increased Pain - Discharge Plan *PRESCRIPTION DRUG MONITORING PROGRAM REVIEWED*: Not Applicable *COPY OF PRESCRIPTION DRUG MONITORING REPORT IN PATIENT [place]: Not Applicable Home Medications: Home Meds Albuterol [Ventolin HFA] 2 puff INH Q4H PRN #1 inhaler 06/18/18 [Rx] FLUoxetine HCl [Prozac] 10 mg PO BEDTIME 06/18/18 [History] Potassium Chloride [Klor-Con 10] 10 meq PO DAILY 09/13/18 [History] Tresiba 20 unit SQ ASDIRECTED 09/13/18 [History] Carvedilol [Coreg] 12.5 mg PO BID #0 09/19/18 [Rx] Cholecalciferol (Vitamin D3) [Vitamin D3] 1,000 unit PO DAILY #30 tablet [Rx] Eplerenone [Inspra] 12.5 mg PO DAILY #30 tab 09/19/18 [Rx] Furosemide 40 mg PO ASDIRECTED #0 09/19/18 [Rx] Lisinopril 10 mg PO DAILY #30 tablet 09/19/18 [Rx] Nicotine [Habitrol] 21 mg TRDERM DAILY #30 patch 09/19/18 [Rx] Rosuvastatin [Crestor] 10 mg PO BEDTIME #30 tablet 09/19/18 [Rx] hydroCHLOROthiazide [Hydrochlorothiazide] 12.5 mg PO BID #0 09/19/18 [Rx] Oxygen Therapy Mode: Room Air Patient Handouts: Shortness of Breath, Adult, [id number], Nonspecific Chest Pain, [id number], Cough, Adult, [id number] Referrals: Roxie Alfaro DIRECTOR POST [Primary Care Provider] - - Discharge Summary/Plan Comment DC Time >30 min.: Yes Discharge Summary/Plan Comment: follow up b.p and bs and repeat labs in one week / follow up renal function on current meds with bnp and cbc and probnp. echo - General Info Date of Service: 05/22/19 Admission Dx/Problem (Free Text: admitted with atypical chest pain and extremely elevated b.p .. increased anxiety and hx of refractory hypertension and chf. ruled out for ami / stress test negative. b.p controlled / compliance discussed / ready for discharge . Functional Status: Reports: Pain Controlled - Review of Systems General: Reports: No Symptoms HEENT: Reports: No Symptoms Pulmonary: Reports: No Symptoms Cardiovascular: Reports: No Symptoms Gastrointestinal: Reports: No Symptoms Genitourinary: Reports: No Symptoms Musculoskeletal: Reports: No Symptoms Skin: Reports: No Symptoms Neurological: Reports: No Symptoms Psychiatric: Reports: No Symptoms - Patient Data Vitals - Most Recent: Last Vital Signs Temp 36.5 C 05/23/19 09:38 Pulse 86 05/23/19 09:38 Resp 12 05/23/19 09:38 BP 153/57 H 05/23/19 09:41 Pulse Ox 98 05/23/19 09:38 Weight - Most Recent: 93.803 kg I&O - Last 24 hours: Intake & Output 05/22/19 05/23/19 05/23/19 22:59 06:59 14:59 Intake Total 200 Output Total 700 Balance -500 Lab Results - Last 24 hrs: Laboratory Results - last 24 hr 05/22/19 05/22/19 05/22/19 Range/Units 19:05 19:05 19:05 WBC 9.23 H (4.23-9.07) K/mm3 RBC 4.46 L (4.63-6.08) M/mm3 Hgb 12.7 L (13.7-17.5) gm/L Hct 39.8 L (40.1-51.0) % MCV 89.2 (79.0-92.2) fl MCH 28.5 (25.7-32.2) pg MCHC 31.9 L (32.2-35.5) g/dl RDW Std Deviation 48.2 H (35.1-43.9) fL Plt Count 193 (163-337) K/mm3 MPV 11.9 (9.4-12.3) fl Neutrophils % (Manual) 67 H (40-60) % Band Neutrophils % 0 (0-10) % Lymphocytes % (Manual) 18 L (20-40) % Atypical Lymphs % 0 % Monocytes % (Manual) 11 H (2-10) % Eosinophils % (Manual) 2 (0.8-7.0) % Basophils % (Manual) 1 (0.2-1.2) Myelocytes % 1 Platelet Estimate Adequate Plt Morphology Comment Normal RBC Morph Comment Normal D-Dimer, Quantitative 1.30 H (0.19-0.50) mg/L Puncture Site ABG pH (7.35-7.45) ABG pCO2 (35.0-45.0) mmHg ABG pO2 (80.0-100.0) mmHg ABG HCO3 (22.0-26.0) meq/L ABG O2 Saturation (96.0-97.0) % ABG Base Excess (-2-2.0) Angel Luis Test A-a Gradient mmHg O2 Delivery Device FiO2 (21.00-100.00) % Sodium 145 (136-145) mEq/L Potassium 4.2 (3.5-5.1) mEq/L Chloride 108 H (98-107) mEq/L Carbon Dioxide 26 (21-32) mEq/L Anion Gap 15.2 H (5-15) BUN 35 H (7-18) mg/dL Creatinine 1.7 H (0.7-1.3) mg/dL Est Cr Clr Drug Dosing 47.12 mL/min Estimated GFR (MDRD) 41 (>60) mL/min BUN/Creatinine Ratio 20.6 H (14-18) Glucose 139 H (80-115) mg/dL POC Glucose (80-115) mg/dL Calcium 9.3 (8.5-10.1) mg/dL Total Bilirubin 0.8 (0.2-1.0) mg/dL AST 30 (15-37) U/L ALT 36 (16-63) U/L Alkaline Phosphatase 117 H (46-116) U/L CK-MB (CK-2) (0-3.6) ng/ml Troponin I 0.027 (0.00-0.056) ng/mL Total Protein 7.1 (6.4-8.2) g/dl Albumin 3.4 (3.4-5.0) g/dl Globulin 3.7 gm/dL Albumin/Globulin Ratio 0.9 L (1-2) 05/23/19 05/23/19 05/23/19 Range/Units 01:20 01:51 05:23 WBC (4.23-9.07) K/mm3 RBC (4.63-6.08) M/mm3 Hgb (13.7-17.5) gm/L Hct (40.1-51.0) % MCV (79.0-92.2) fl MCH (25.7-32.2) pg MCHC (32.2-35.5) g/dl RDW Std Deviation (35.1-43.9) fL Plt Count (163-337) K/mm3 MPV (9.4-12.3) fl Neutrophils % (Manual) (40-60) % Band Neutrophils % (0-10) % Lymphocytes % (Manual) (20-40) % Atypical Lymphs % % Monocytes % (Manual) (2-10) % Eosinophils % (Manual) (0.8-7.0) % Basophils % (Manual) (0.2-1.2) Myelocytes % Platelet Estimate Plt Morphology Comment RBC Morph Comment D-Dimer, Quantitative (0.19-0.50) mg/L Puncture Site Rt radial ABG pH 7.37 (7.35-7.45) ABG pCO2 41.0 (35.0-45.0) mmHg ABG pO2 73.0 L (80.0-100.0) mmHg ABG HCO3 23.2 (22.0-26.0) meq/L ABG O2 Saturation 94.1 L (96.0-97.0) % ABG Base Excess -1.4 (-2-2.0) Angel Luis Test Positive A-a Gradient 10 mmHg O2 Delivery Device Room air FiO2 21.00 (21.00-100.00) % Sodium (136-145) mEq/L Potassium (3.5-5.1) mEq/L Chloride (98-107) mEq/L Carbon Dioxide (21-32) mEq/L Anion Gap (5-15) BUN (7-18) mg/dL Creatinine (0.7-1.3) mg/dL Est Cr Clr Drug Dosing mL/min Estimated GFR (MDRD) (>60) mL/min BUN/Creatinine Ratio (14-18) Glucose (80-115) mg/dL POC Glucose 86 (80-115) mg/dL Calcium (8.5-10.1) mg/dL Total Bilirubin (0.2-1.0) mg/dL AST (15-37) U/L ALT (16-63) U/L Alkaline Phosphatase (46-116) U/L CK-MB (CK-2) 1.9 (0-3.6) ng/ml Troponin I 0.035 (0.00-0.056) ng/mL Total Protein (6.4-8.2) g/dl Albumin (3.4-5.0) g/dl Globulin gm/dL Albumin/Globulin Ratio (1-2) 05/23/19 05/23/19 Range/Units 06:43 11:09 WBC (4.23-9.07) K/mm3 RBC (4.63-6.08) M/mm3 Hgb (13.7-17.5) gm/L Hct (40.1-51.0) % MCV (79.0-92.2) fl MCH (25.7-32.2) pg MCHC (32.2-35.5) g/dl RDW Std Deviation (35.1-43.9) fL Plt Count (163-337) K/mm3 MPV (9.4-12.3) fl Neutrophils % (Manual) (40-60) % Band Neutrophils % (0-10) % Lymphocytes % (Manual) (20-40) % Atypical Lymphs % % Monocytes % (Manual) (2-10) % Eosinophils % (Manual) (0.8-7.0) % Basophils % (Manual) (0.2-1.2) Myelocytes % Platelet Estimate Plt Morphology Comment RBC Morph Comment D-Dimer, Quantitative (0.19-0.50) mg/L Puncture Site ABG pH (7.35-7.45) ABG pCO2 (35.0-45.0) mmHg ABG pO2 (80.0-100.0) mmHg ABG HCO3 (22.0-26.0) meq/L ABG O2 Saturation (96.0-97.0) % ABG Base Excess (-2-2.0) Angel Luis Test A-a Gradient mmHg O2 Delivery Device FiO2 (21.00-100.00) % Sodium (136-145) mEq/L Potassium (3.5-5.1) mEq/L Chloride (98-107) mEq/L Carbon Dioxide (21-32) mEq/L Anion Gap (5-15) BUN (7-18) mg/dL Creatinine (0.7-1.3) mg/dL Est Cr Clr Drug Dosing mL/min Estimated GFR (MDRD) (>60) mL/min BUN/Creatinine Ratio (14-18) Glucose (80-115) mg/dL POC Glucose 84 142 H (80-115) mg/dL Calcium (8.5-10.1) mg/dL Total Bilirubin (0.2-1.0) mg/dL AST (15-37) U/L ALT (16-63) U/L Alkaline Phosphatase (46-116) U/L CK-MB (CK-2) (0-3.6) ng/ml Troponin I (0.00-0.056) ng/mL Total Protein (6.4-8.2) g/dl Albumin (3.4-5.0) g/dl Globulin gm/dL Albumin/Globulin Ratio (1-2) Med Orders - Current: Current Medications Albuterol (Proventil Hfa) 0 gm INH Q4H PRN PRN Reason: WHEEZING Amlodipine Besylate (Norvasc) 5 mg PO DAILY [facility] Last Admin: 05/23/19 06:45 Dose: 5 mg Carvedilol (Coreg) 12.5 mg PO BIDMEALS [facility] Last Admin: 05/23/19 06:15 Dose: 12.5 mg Cholecalciferol (Vitamin D3) 25 mcg PO DAILY [facility] Last Admin: 05/23/19 09:41 Dose: 25 mcg Fluoxetine HCl (Prozac) 10 mg PO DAILY [facility] Last Admin: 05/23/19 09:42 Dose: 10 mg Losartan Potassium (Cozaar) 100 mg PO DAILY [facility] Last Admin: 05/23/19 09:41 Dose: 100 mg Miscellaneous Information (Remove Patch) 1 ea TRDERM DAILY [facility] Last Admin: 05/23/19 09:43 Dose: 1 ea Nicotine (Habitrol) 21 mg TRDERM DAILY [facility] Last Admin: 05/23/19 09:43 Dose: 21 mg Eplerenone [Inspra] (12.5 Mg) 0 each PO DAILY [facility] Last Admin: 05/23/19 09:42 Dose: Not Given Potassium Chloride (Klor-Con 10) 10 meq PO DAILY [facility] Last Admin: 05/23/19 09:42 Dose: 10 meq Rosuvastatin Calcium (Crestor) 10 mg PO BEDTIME [facility] Sodium Chloride (Saline Flush) 10 ml FLUSH ASDIRECTED PRN PRN Reason: Keep Vein Open Temazepam (Restoril) 15 mg PO BEDTIME PRN PRN Reason: Sleep Last Admin: 05/23/19 01:51 Dose: 15 mg Discontinued Medications Amlodipine Besylate (Norvasc) 5 mg PO ONETIME ONE Stop: 05/23/19 00:09 Last Admin: 05/23/19 00:14 Dose: 5 mg Amlodipine Besylate (Norvasc) 5 mg PO ONETIME ONE Stop: 05/23/19 08:09 Last Admin: 05/23/19 08:10 Dose: 5 mg Carvedilol (Coreg) 12.5 mg PO ONETIME ONE Stop: 05/23/19 06:34 Last Admin: 05/23/19 06:45 Dose: 12.5 mg Clonidine HCl (Catapres) 0.1 mg PO ONETIME ONE Stop: 05/22/19 23:00 Last Admin: 05/22/19 23:14 Dose: 0.1 mg Furosemide (Lasix) 40 mg IVPUSH NOW ONE Stop: 05/22/19 23:28 Last Admin: 05/22/19 23:47 Dose: 40 mg Furosemide (Lasix) 40 mg PO ASDIRECTED [facility] Furosemide (Lasix) 40 mg IVPUSH NOW ONE Stop: 05/23/19 06:30 Last Admin: 05/23/19 06:45 Dose: 40 mg Lisinopril (Prinivil) 10 mg PO DAILY [facility] Metoprolol Tartrate (Lopressor) 5 mg IVPUSH ONETIME ONE Stop: 05/23/19 00:50 Last Admin: 05/23/19 01:06 Dose: 5 mg Miscellaneous Information (Remove Patch) 1 ea TRDERM DAILY [facility] Nicotine (Habitrol) 14 mg TRDERM DAILY [facility] Nicotine (Habitrol) 21 mg TRDERM DAILY [facility] Non-Formulary Medication (Tresiba) 20 unit SQ ASDIRECTED [facility] Regadenoson (Lexiscan) 0.4 mg IVPUSH ONETIME ONE Stop: 05/23/19 08:32 Last Admin: 05/23/19 08:39 Dose: 0.4 mg - Exam General: Reports: Alert, Oriented HEENT: Reports: Pupils Equal, Pupils Reactive, EOMI, Mucous Membr. Moist/[place] Neck: Reports: Supple Lungs: Reports: Clear to Auscultation, Normal Respiratory Effort Cardiovascular: Reports: Regular Rate, Regular Rhythm GI/Abdominal Exam: Normal Bowel Sounds, Soft, Non-Tender, No Organomegaly, No Distention, No Abnormal Bruit, No Mass, Pelvis Stable (Male) Exam: No Hernia, Normal Inspection, Normal Prostate, Circumcised Rectal (Males) Exam: Normal Exam, Normal Rectal Tone, Prostate Normal Back Exam: Reports: Normal Inspection, Full Range of Motion Extremities: Normal Inspection, Normal Range of Motion, Non-Tender, No Pedal Edema, Normal Capillary Refill Skin: Reports: Warm, Dry, Intact Wound/Incisions: Reports: Healing Well Neurological: Reports: No New Focal Deficit Psy/Mental Status: Reports: Alert, Normal Affect, Normal Mood
--- NOTE | 2019-05-23 13:29 | NM ---
Cardiolite cardiac scan with Lexiscan Technique: I have data stating the patient was stressed utilizing Lexiscan protocol. Stress dose of technetium 99m Cardiolite was 11.6 mCi. Rest dose was 31.0 mCi. SPECT imaging was obtained in 3 planes for both portions of the study. Study was also gated. Low-dose chest CT performed to allow for attenuation correction. Comparison: No prior cardiac imaging. Findings: Diminished activity is seen within the inferior wall, mostly within the posterior wall. This is noted on the stress study and also appears on the rest exam. Slight lack of wall thickening is seen and this finding is most likely due to previous infarct. Activity is otherwise homogeneous between rest and stress study. Ejection fraction is normal at 54%. Wall thickening is slightly diminished within the posterior wall. Wall thickening is otherwise normal. Impression: 1. Findings suspicious for previous infarct within the inferior wall, mostly within the posterior wall. 2. Nothing is appreciated on current study to indicate reversible ischemia. 3. Normal ejection fraction is noted. Diagnostic code #2
[2019-05-23 14:58] VITALS: BP 149/94
[2019-05-23] MEDS ORDERED: Rosuvastatin 10 MG Tab PO SCH (21:00)
[2019-05-24] MEDS ORDERED: Carvedilol 12.5 MG Tab PO ONE (06:30)
--- NOTE | 2019-05-25 07:05 | STRESS ---
REQUESTING PHYSICIAN: Roxie Alfaro NP DATE: 05/23/2019 INDICATIONS: A 63-year-old male who underwent a Lexiscan non-walking treadmill test. The patient's resting heart rate was 90, resting blood pressure 150/89. The patient achieved 1 MET activity. There were no significant ST-T wave changes throughout the recording. The patient experienced some mild nausea, mild chest symptoms, and coughing, but no particular chest pain. Symptoms resolved without issue. ST depression was noted in lead II only at 0.6 mm. The patient returned to baseline PVCs, which right bundle-branch block was seen sporadically through the recording, but did not increase with the infusion, actually increased after the infusion was done and his heart rate slowed down. ASSESSMENT: Negative EKG portion of stress test. DIOGO /[id number]
== END 2019-05-23 15:10 | disposition home or self-care (01) | DRG 199 ==
LOC: JD.ED 18:56 → JD.MS 23:55
PROVIDERS: ADMIT Pediatrics; ATTEND Pediatrics
DX: I16.0 Hypertensive urgency (principal); I13.0 Hypertensive heart and chronic kidney disease with heart failure and stage 1 through stage 4 chronic kidney disease, or unspecified chronic kidney disease; N18.9 Chronic kidney disease, unspecified; I50.33 Acute on chronic diastolic (congestive) heart failure; E11.22 Type 2 diabetes mellitus with diabetic chronic kidney disease; J44.1 Chronic obstructive pulmonary disease with (acute) exacerbation; F17.210 Nicotine dependence, cigarettes, uncomplicated; R61 Generalized hyperhidrosis; D63.1 Anemia in chronic kidney disease; F32.9 Major depressive disorder, single episode, unspecified; H91.90 Unspecified hearing loss, unspecified ear; E11.319 Type 2 diabetes mellitus with unspecified diabetic retinopathy without macular edema; E78.00 Pure hypercholesterolemia, unspecified; M19.91 Primary osteoarthritis, unspecified site; G43.909 Migraine, unspecified, not intractable, without status migrainosus; F41.9 Anxiety disorder, unspecified; R09.82 Postnasal drip; E66.9 Obesity, unspecified; Z88.2 Allergy status to sulfonamides; Z85.46 Personal history of malignant neoplasm of prostate; Z88.0 Allergy status to penicillin; Z90.49 Acquired absence of other specified parts of digestive tract; Z68.29 Body mass index [BMI] 29.0-29.9, adult
CPT/HCPCS: 36415; 36600; 71045; 71045-26; 78452; 78452-26; 80053; 82553; 82803; 82962; 83880; 84484; 85007; 85027; 85379; 93005; 93017; 96374; 97161-GP; 99285-25; A9270-GY; A9500; J1940; J2785; J3490

== ENCOUNTER 2019-11-28 08:15 | Day surgery (SDC) | payer MEDICAID, OTHER ==
[~2019-11-28 08:15] MED LIST: Albuterol 0.083% 2.5 MG/3 ML Neb Soln NEB PRN; Lactated Ringers 1,000 ML IV SCH; Lidocaine 1% 4 ML ONE; Lidocaine 1%/Sod Bicarbonate in NS 8.4% 1 ML Syringe IDERM PRN; Propofol 200 MG/20 ML SDV ONE; Sodium Chloride 0.9% 10 ML Syringe FLUSH PRN
--- NOTE | 2019-11-28 08:53 | PCM.PREANE ---
Preanesthetic Assessment - Anesthesia/Transfusion/Family Hx Anesthesia History: Prior Anesthesia Without Reaction Family History of Anesthesia Reaction: No Transfusion History: No Prior Transfusion(s) Intubation History: Unknown - Review of Systems General: No Symptoms Pulmonary: No Symptoms Cardiovascular: No Symptoms Gastrointestinal: No Symptoms Neurological: No Symptoms Other: Reports: None - Physical Assessment NPO Status Date: 11/27/19 NPO Status Time: 22:30 ASA Class: 3 Mental Status: Alert & Oriented x3 Airway Class: Mallampati = 2 Dentition: Reports: Normal Dentition Thyro-Mental Finger Breadths: 3 Mouth Opening Finger Breadths: 3 ROM/Head Extension: Full Lungs: Clear to Auscultation, Normal Respiratory Effort Cardiovascular: Irregular Rhythm - Allergies Allergies/Adverse Reactions: Allergies Allergy/AdvReac Type Severity Reaction Status Date / Time Penicillins Allergy Hives Verified 11/27/19 14:25 Sulfa (Sulfonamide Allergy Hives Verified 11/27/19 14:25 Antibiotics) - Anesthesia Plan Beta Nova: Carvedilol Med Last Dose Date: 11/28/19 Med Last Dose Time: 07:00 - Acknowledgements Anesthesia Type Planned: MAC Pt an Appropriate Candidate for the Planned Anesthesia: Yes Alternatives and Risks of Anesthesia Discussed w Pt/Guardian: Yes Pt/Guardian Understands and Agrees with Anesthesia Plan: Yes PreAnesthesia Questionnaire HEENT History: Reports: Allergic Rhinitis, Hard of Hearing, Impaired Vision, Sinusitis Other HEENT History: wears eyeglasses for driving only Cardiovascular History: Reports: Afib, Heart Failure, High Cholesterol, Hypertension, SOB on Exertion Respiratory History: Reports: Bronchitis, Recurrent, COPD, Sleep Apnea Other Respiratory History: hypoxemic respiratory failure Gastrointestinal History: Reports: Diverticulosis, GERD Genitourinary History: Reports: Chronic Renal Insuffiency, Diabetic Nephropathy Other Genitourinary History: Hx of prostate cancer. [employer] History: Reports: None Musculoskeletal History: Reports: Arthritis, Back Pain, Chronic Neurological History: Reports: Migraines Psychiatric History: Reports: Anxiety, Depression, PTSD Endocrine/Metabolic History: Reports: Diabetes, Type II, Obesity/BMI 30+, Vitamin D Deficiency, Other (See Below) Other Endocrine/Metabolic History: graves Hematologic History: Reports: None Immunologic History: Reports: None Oncologic (Cancer) History: Reports: Prostate - Infectious Disease History Infectious Disease History: Reports: Chicken Pox, Mumps - Past Surgical History Head Surgeries/Procedures: Reports: None HEENT Surgical History: Reports: None Cardiovascular Surgical History: Reports: None Respiratory Surgical History: Reports: None GI Surgical History: Reports: Appendectomy, EGD Male Surgical History: Reports: Prostate Biopsy Endocrine Surgical History: Reports: None Neurological Surgical History: Reports: None Musculoskeletal Surgical History: Reports: None Other Musculoskeletal Surgeries/Procedures:: left hand surgery Oncologic Surgical History: Reports: None, Other (See Below) Dermatological Surgical History: Reports: None - SUBSTANCE USE Smoking Status *Q: Current Every Day Smoker Recreational Drug Use History: No - HOME MEDS Home Medications: Home Meds Carvedilol [Coreg] 12.5 mg PO BID #0 09/19/18 [Rx] Cholecalciferol (Vitamin D3) [Vitamin D3] 1,000 unit PO DAILY #30 tablet [Rx] Rosuvastatin [Crestor] 10 mg PO BEDTIME #30 tablet 09/19/18 [Rx] Losartan [Cozaar] 100 mg PO DAILY tablet 05/23/19 [Rx] Albuterol Sulfate [Proair Respiclick] 2 puff IH BID 06/26/19 [History] Dulaglutide [Trulicity] 0.5 mg SQ SA 06/26/19 [History] amLODIPine [Norvasc] 10 mg PO DAILY 06/26/19 [History] Furosemide [Lasix] 40 mg PO BID #60 tab 06/27/19 [Rx] Topiramate [Topamax] 25 mg PO BID #60 tablet 06/27/19 [Rx] Apixaban [Eliquis] 5 mg PO DAILY 11/27/19 [History] Diclofenac Sodium [Voltaren 1% Gel] 1 dose TOP QID PRN 11/27/19 [History] Insulin Glarg,Human.Rec.Analog [Lantus] 24 units SQ BEDTIME 11/27/19 [History] Methimazole [Tapazole] 10 mg PO DAILY 11/27/19 [History] Multivitamin [Daily Multiple Vitamin] 1 tab PO DAILY 11/27/19 [History] Sodium Bicarbonate 650 mg PO BID 11/27/19 [History] - CURRENT (IN HOUSE) MEDS Current Meds: Current Medications Albuterol (Proventil Neb Soln) 2.5 mg NEB ONETIME PRN PRN Reason: bronchodilation Lactated Ringer's (Ringers, Lactated) 1,000 mls @ 125 mls/hr IV ASDIRECTED [facility] Lidocaine/Sodium Bicarbonate (Buffered Lidocaine 1% In Ns 8.4%) 0.25 ml IDERM ONETIME PRN PRN Reason: Prior to IV Start Sodium Chloride (Saline Flush) 10 ml FLUSH ASDIRECTED PRN PRN Reason: Keep Vein Open Discontinued Medications Lidocaine HCl (Xylocaine-Mpf 1%) Confirm Administered Dose 4 mls @ as directed .ROUTE .STK-MED ONE Stop: 11/28/19 07:23 Propofol (Diprivan 20 Ml) Confirm Administered Dose 200 mg .ROUTE .STK-MED ONE Stop: 11/28/19 07:23
--- NOTE | 2019-11-28 09:43 | PCM.HP.2 ---
H&P History of Present Illness - General Date of Service: 11/28/19 Source of Information: Patient, Old Records History Limitations: Reports: No Limitations - History of Present Illness Initial Comments - Free Text/Narative: The patient is a 64 y/o gentleman who presents for screening colonoscopy. He has never had a colonoscopy. He reports some constipation with hard stools and occasional painful bowel movements. He denies any melena, hematochezia, nausea or vomiting. He reports improved control of his blood glucose levels lately since he has been on his diabetic medications. Abdomen Pain Score (Numeric/FACES): 0 - Related Data Allergies/Adverse Reactions: Allergies Allergy/AdvReac Type Severity Reaction Status Date / Time Penicillins Allergy Hives Verified 11/27/19 14:25 Sulfa (Sulfonamide Allergy Hives Verified 11/27/19 14:25 Antibiotics) Home Medications: Home Meds Carvedilol [Coreg] 12.5 mg PO BID #0 09/19/18 [Rx] Cholecalciferol (Vitamin D3) [Vitamin D3] 1,000 unit PO DAILY #30 tablet [Rx] Rosuvastatin [Crestor] 10 mg PO BEDTIME #30 tablet 09/19/18 [Rx] Losartan [Cozaar] 100 mg PO DAILY tablet 05/23/19 [Rx] Albuterol Sulfate [Proair Respiclick] 2 puff IH BID 06/26/19 [History] Dulaglutide [Trulicity] 0.5 mg SQ SA 06/26/19 [History] amLODIPine [Norvasc] 10 mg PO DAILY 06/26/19 [History] Furosemide [Lasix] 40 mg PO BID #60 tab 06/27/19 [Rx] Topiramate [Topamax] 25 mg PO BID #60 tablet 06/27/19 [Rx] Apixaban [Eliquis] 5 mg PO DAILY 11/27/19 [History] Diclofenac Sodium [Voltaren 1% Gel] 1 dose TOP QID PRN 11/27/19 [History] Insulin Glarg,Human.Rec.Analog [Lantus] 24 units SQ BEDTIME 11/27/19 [History] Methimazole [Tapazole] 10 mg PO DAILY 11/27/19 [History] Multivitamin [Daily Multiple Vitamin] 1 tab PO DAILY 11/27/19 [History] Sodium Bicarbonate 650 mg PO BID 11/27/19 [History] Past Medical History HEENT History: Reports: Allergic Rhinitis, Hard of Hearing, Impaired Vision, Sinusitis Other HEENT History: wears eyeglasses for driving only Cardiovascular History: Reports: Afib, Heart Failure, High Cholesterol, Hypertension, SOB on Exertion Respiratory History: Reports: Bronchitis, Recurrent, COPD, Sleep Apnea Other Respiratory History: hypoxemic respiratory failure Gastrointestinal History: Reports: Diverticulosis, GERD Genitourinary History: Reports: Chronic Renal Insuffiency, Diabetic Nephropathy Other Genitourinary History: Hx of prostate cancer. DRILLER MULTIPLE SPINDLE History: Reports: None Musculoskeletal History: Reports: Arthritis, Back Pain, Chronic Neurological History: Reports: Migraines Psychiatric History: Reports: Anxiety, Depression, PTSD Endocrine/Metabolic History: Reports: Diabetes, Type II, Obesity/BMI 30+, Vitamin D Deficiency, Other (See Below) Other Endocrine/Metabolic History: graves Hematologic History: Reports: None Immunologic History: Reports: None Oncologic (Cancer) History: Reports: Prostate - Infectious Disease History Infectious Disease History: Reports: Chicken Pox, Mumps - Past Surgical History Head Surgeries/Procedures: Reports: None HEENT Surgical History: Reports: None Cardiovascular Surgical History: Reports: None Respiratory Surgical History: Reports: None GI Surgical History: Reports: Appendectomy, EGD Male Surgical History: Reports: Prostate Biopsy Endocrine Surgical History: Reports: None Neurological Surgical History: Reports: None Musculoskeletal Surgical History: Reports: None Other Musculoskeletal Surgeries/Procedures:: left hand surgery Oncologic Surgical History: Reports: None, Other (See Below) Dermatological Surgical History: Reports: None Social & Family History - Family History Cardiac: Reports: Heart Failure Respiratory: Reports: Asthma - Tobacco Use Smoking Status *Q: Current Every Day Smoker Years of Tobacco use: 45 Packs/Tins Daily: 1 - Caffeine Use Caffeine Use: Reports: Coffee - Recreational Drug Use Recreational Drug Use: No Drug Use in Last 12 Months: No - Living Situation & Occupation Living situation: Reports: , with Spouse 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) H&P Review of Systems - Review of Systems: Review Of Systems: See Below General: Reports: No Symptoms HEENT: Reports: No Symptoms Pulmonary: Reports: No Symptoms Cardiovascular: Reports: No Symptoms Gastrointestinal: Reports: No Symptoms Genitourinary: Reports: No Symptoms Musculoskeletal: Reports: No Symptoms Skin: Reports: No Symptoms Neurological: Reports: Paresthesia (in fingers and toes) Exam - Exam Exam: See Below - Vital Signs Vital Signs: Last Vital Signs Temp 36.3 C 11/28/19 08:25 Pulse 88 11/28/19 08:25 Resp 16 11/28/19 08:25 BP 109/77 11/28/19 08:25 Pulse Ox 96 11/28/19 09:20 Weight: 93.44 kg - Exam Quality Assessment: No: Supplemental Oxygen General: Alert, Oriented HEENT: Conjunctiva Clear, EOMI Neck: Supple Lungs: Normal Respiratory Effort GI/Abdominal Exam: Soft, Non-Tender, No Distention Neurological: Cranial Nerves Intact Neuro Extensive - Mental Status: Alert, Oriented x3, Normal Mood/Affect - Patient Data Lab Results Last 24 hrs: Laboratory Results - last 24 hr 11/28/19 Range/Units 08:58 POC Glucose 156 H (80-115) mg/dL Sepsis Event Note - Evaluation Sepsis Screening Result: No Definite Risk - Focused Exam Vital Signs: Vital Signs Temp Pulse Resp BP Pulse Ox Pulse Ox 11/28/19 09:20 96 11/28/19 08:25 36.3 C 88 16 109/77 95 Date Exam was Performed: 11/28/19 Time Exam was Performed: 09:38 *Q Meaningful Use (ADM) - VTE Risk Assess *Q Each Risk Factor Represents 2 Points: Age 60 - 74 Years Total Score 2 Point Risk Factors: 2 - Problem List (1) Screening for colon cancer SNOMED Code(s): 012848403, [id number] ICD Code: Z12.11 - ENCOUNTER FOR SCREENING FOR MALIGNANT NEOPLASM OF COLON Status: Acute Current Visit: Yes Problem List Initiated/Reviewed/Updated: Yes Orders Last 24hrs: Active Orders 24 hr Category Date Time Status Blood Glucose Check, Bedside [RC] ONETIME Care 11/28/19 00:01 Active Peripheral IV Care [RC] . DIRECTED Care 11/28/19 00:01 Active RT Aerosol Therapy [RC] ASDIRECTED Care 11/27/19 10:23 Active Verify Patient Consent Obtain [RC] ASDIRECTED Care 11/28/19 00:01 Active Albuterol [Proventil Neb Soln] Med 11/28/19 00:01 Active 2.5 mg NEB ONETIME PRN Lactated Ringers [Ringers, Lactated] 1,000 ml Med 11/28/19 00:01 Active IV ASDIRECTED Lidocaine 1%/Sod Bicarbonate [Buffered Lidocaine 1% in Med 11/28/19 00:01 Active NS 8.4%] 0.25 ml IDERM ONETIME PRN Sodium Chloride 0.9% [Saline Flush] Med 11/28/19 00:01 Active 10 ml FLUSH ASDIRECTED PRN Medication Administration Instruction [OM.PC] Routine Oth 11/28/19 00:01 Ordered Peripheral IV Insertion Adult [OM.PC] Routine Oth 11/28/19 00:01 Ordered Medication Orders Albuterol (Proventil Neb Soln) 2.5 mg NEB ONETIME PRN PRN Reason: bronchodilation Last Admin: 11/28/19 09:20 Dose: 2.5 mg Lactated Ringer's (Ringers, Lactated) 1,000 mls @ 125 mls/hr IV ASDIRECTED [place] Last Admin: 11/28/19 08:55 Dose: 125 mls/hr Lidocaine/Sodium Bicarbonate (Buffered Lidocaine 1% In Ns 8.4%) 0.25 ml IDERM ONETIME PRN PRN Reason: Prior to IV Start Last Admin: 11/28/19 08:54 Dose: 0.25 ml Sodium Chloride (Saline Flush) 10 ml FLUSH ASDIRECTED PRN PRN Reason: Keep Vein Open Assessment/Plan Comment:: 64-year-old gentleman who presents for screening colonoscopy. -Patient has appropriate exercise tolerance -Patient has held his anticoagulant for anticipation of procedure - Discussed risks of perforation with the patient. Written consent was obtained for screening colonoscopy Marley Lui MD General Surgery
[2019-11-28] MEDS ORDERED: Propofol 200 MG/20 ML SDV ONE ×2 (10:03→10:45)
--- NOTE | 2019-11-28 11:19 | PCM48HPAN ---
Post Anesthesia Note - EVALUATION WITHIN 48HRS OF ANESTHETIC Vital Signs in Normal Range: Yes Patient Participated in Evaluation: Yes Respiratory Function Stable: Yes Airway Patent: Yes Cardiovascular Function Stable: Yes Hydration Status Stable: Yes Pain Control Satisfactory: Yes Nausea and Vomiting Control Satisfactory: Yes Mental Status Recovered: Yes Vital Signs: Last Vital Signs Temp 36.3 C 11/28/19 08:25 Pulse 88 11/28/19 08:25 Resp 16 11/28/19 08:25 BP 109/77 11/28/19 08:25 Pulse Ox 96 11/28/19 09:20
--- NOTE | 2019-11-28 11:24 | PCM.OPNOTE ---
- General Post-Op/Procedure Note Date of Surgery/Procedure: 11/28/19 Operative Procedure(s): colonoscopy Findings: 1. Cecal polyp 2. Ascending colon polyps x2 3. Transverse colon polyp x7 4. Descending colon polyp 5. Sigmoid polyp 6. Rectal polyp Pre Op Diagnosis: screening for colorectal cancer Post-Op Diagnosis: same Anesthesia Technique: MAC Primary Surgeon: Marley Lui Anesthesia Provider: Luh Baires Pathology: 1. Cecal polyp 2. Ascending colon polyps x2 3. Transverse colon polyp x7 4. Descending colon polyp 5. Sigmoid polyp 6. Rectal polyp Fluid Replacement, Intraop: 1,300 Output, Urine Amount: 0 EBL in mLs: 0 Complications: none apparent Condition: Good
--- NOTE | 2019-11-28 11:32 | PCM.PRNOTE ---
- Free Text/Narrative Note: Operative Report Date of Surgery/Procedure: November 28, 2019 Operative Procedure: Colonoscopy to cecum with polypectomy Pre Op Diagnosis: colorectal cancer screening Post-Op Diagnosis: Same Surgeon: Marley Lui MD Anesthesia Technique: MAC Anesthesia Provider: Luh Baires CRNA IV Fluid Replacement, Intraop: 1300cc Output, Urine Amount: 0cc EBL : 0cc Findings: 1. Cecal polyp 2. Ascending colon polyps x2 3. Transverse colon polyp x7 4. Descending colon polyp 5. Sigmoid polyp 6. Rectal polyp Specimens: 1. Cecal polyp 2. Ascending colon polyps x2 3. Transverse colon polyp x7 4. Descending colon polyp 5. Sigmoid polyp 6. Rectal polyp Indication: The patient is a 64 year-old gentleman who presented to the outpatient clinic requesting colorectal cancer screening. The patient has a history of old tubal medical problems including atrial fibrillation and poorly controlled diabetes We discussed the procedure of a screening colonoscopy including the polypectomy and biopsy. Risks of bleeding and perforation were discussed, the patient understood and wished to proceed. Written and consent was obtained Description of the procedure: The patient was brought to the endoscopy suite and placed in the left lateral decubitus position. Appropriate monitors were applied. The patient was given MAC anesthesia. An anorectal examination was performed, revealing no masses or mucosal abnormalities. The scope was placed into the rectum and advanced to cecum with minimal difficulty requiring no additional maneuvers. The patients cecum was entered, and the ileocecal valve and appendiceal orifice were identified and normal. At this point, the scope was withdrawn, paying careful attention to the mucosa. The patient had adequate bowel prep, allowing for visualization of 75-80% of the mucosa, which was improved with washing and suctioning. Multiple colon polyps were noted. A cecal polyp was seen and removed with a hot snare. This is approximately 5 mm and pedunculated. There was another 6 mm semi-pedunculated polyp removed with a hot snare from the ascending colon. Additional tissue at the polyp base was removed using a jumbo cold biopsy forceps. Another 3 mm flat polyp was removed from the ascending colon using a jumbo cold biopsy forceps. A 10 mm transverse colon polyp was semi-pedunculated and removed partially with a hot snare with the remaining tissue removed using jumbo cold biopsy forceps. There were 5 flat polyps ranging from 2-4 mm in the transverse colon removed with jumbo cold biopsy forceps. Another semi-pedunculated transverse colon polyp measuring 5 mm was removed using hot snare A semi-pedunculated 3 mm sigmoid polyp was removed using jumbo cold biopsy forceps. In the rectum, a 1.2 cm pedunculated polyp was removed using hot snare. This was tattooed with Kiley ink to cirilo the location. was noted. There were scattered small diverticula through the sigmoid and descending colon with a few also noted in the transverse colon. There was no evidence of inflammation. In the rectum, the scope was retroflexed and no abnormalities were noted, except for some hemorrhoidal tissue. The scope was placed back in the lumen and the excess air was aspirated. The patient tolerated the procedure well. Complications: none apparent Condition: Good, transported to PACU in stable condition Marley Lui MD General Surgery
== END 2019-11-28 12:25 | disposition home or self-care (01) ==
LOC: JD.SDS 08:15
PROVIDERS: ATTEND Surgery
DX: Z12.11 Encounter for screening for malignant neoplasm of colon (principal); D12.7 Benign neoplasm of rectosigmoid junction; D12.2 Benign neoplasm of ascending colon; D12.0 Benign neoplasm of cecum; D12.3 Benign neoplasm of transverse colon; K63.5 Polyp of colon; K57.30 Diverticulosis of large intestine without perforation or abscess without bleeding; K64.9 Unspecified hemorrhoids; K21.9 Gastro-esophageal reflux disease without esophagitis; I13.0 Hypertensive heart and chronic kidney disease with heart failure and stage 1 through stage 4 chronic kidney disease, or unspecified chronic kidney disease; I50.9 Heart failure, unspecified; N18.9 Chronic kidney disease, unspecified; E11.22 Type 2 diabetes mellitus with diabetic chronic kidney disease; E78.00 Pure hypercholesterolemia, unspecified; J44.9 Chronic obstructive pulmonary disease, unspecified; E11.21 Type 2 diabetes mellitus with diabetic nephropathy; M19.90 Unspecified osteoarthritis, unspecified site; G43.909 Migraine, unspecified, not intractable, without status migrainosus; E55.9 Vitamin D deficiency, unspecified; F17.210 Nicotine dependence, cigarettes, uncomplicated; E66.9 Obesity, unspecified; Z88.0 Allergy status to penicillin; Z88.2 Allergy status to sulfonamides; Z79.899 Other long term (current) drug therapy; Z68.29 Body mass index [BMI] 29.0-29.9, adult
CPT/HCPCS: 45380; 45385; 82962; 88305; 93005; 94640; J2001; J2704; J7120

== ENCOUNTER 2020-02-06 15:31 | Inpatient (IN) | payer OTHER, SELFPAY ==
--- NOTE | 2020-02-06 16:06 | EDM.PDOC ---
ED HPI GENERAL MEDICAL PROBLEM - General Chief Complaint: Diabetic Complaint Stated Complaint: DIABETIC COMPLAINT Time Seen by Provider: 02/06/20 16:00 Source of Information: Reports: Patient History Limitations: Reports: No Limitations - History of Present Illness INITIAL COMMENTS - FREE TEXT/NARRATIVE: 64-year-old male presents to the ED because of elevated blood sugar identified at the [facility] of greater than 600. He has been a diabetic for greater than 10 years. He states when he had insurance he was well controlled with Trulicity and intermittent use of Tradjenta as he lost his job were [facility] [place] [facility] he has not been able to afford medications and is on Lantus insulin which is not doing the trick in terms of bringing his sugars under control. He is currently using 31 units twice daily. He feels dehydrated. History of myocardial infarction and congestive heart failure. History of renal insufficiency. His any fever chills or recent illnesses. Current weight is around 211 pounds is down to 189 pounds at 1 time. Onset: Unknown/Unsure (Is a been running much higher as of late.) Onset Date: 01/08/20 (Believes elevated blood sugars for the last month.) Duration: Week(s):, Chronic, Getting Worse Location: Reports: Generalized (Evaded blood sugars.) Quality: Reports: Other Severity: Moderate (Hyperglycemia) Improves with: Reports: Other (Her size) Context: Denies: Activity, Exercise, Lifting, Sick Contact, Trauma, Other Associated Symptoms: Reports: Cough, Loss of Appetite, Malaise (Chronic cough), Shortness of Breath (Frequency of urination), Weakness, Other. Denies: Confusion, Chest Pain, cough w sputum, Diaphoresis, Fever/Chills, Headaches, Nausea/Vomiting, Syncope Treatments [employer]: Reports: Other (see below) (Only prescribed medications.) Right Shoulder Pain Score (Numeric/FACES): 8 - Related Data Allergies Allergy/AdvReac Type Severity Reaction Status Date / Time Penicillins Allergy Hives Verified 02/06/20 21:29 Sulfa (Sulfonamide Allergy Hives Verified 02/06/20 21:29 Antibiotics) Home Meds: Home Meds Carvedilol [Coreg] 12.5 mg PO BID #0 09/19/18 [Rx] Cholecalciferol (Vitamin D3) [Vitamin D3] 1,000 unit PO DAILY #30 tablet [Rx] Rosuvastatin [Crestor] 10 mg PO BEDTIME #30 tablet 09/19/18 [Rx] Losartan [Cozaar] 100 mg PO DAILY tablet 05/23/19 [Rx] Albuterol Sulfate [Proair Respiclick] 2 puff IH BID 06/26/19 [History] Dulaglutide [Trulicity] 0.5 mg SQ SA 06/26/19 [History] amLODIPine [Norvasc] 10 mg PO DAILY 06/26/19 [History] Furosemide [Lasix] 40 mg PO BID #60 tab 06/27/19 [Rx] Apixaban [Eliquis] 5 mg PO DAILY 11/27/19 [History] Diclofenac Sodium [Voltaren 1% Gel] 1 dose TOP QID PRN 11/27/19 [History] Insulin Glarg,Human.Rec.Analog [Lantus] 24 units SQ BEDTIME 11/27/19 [History] Methimazole [Tapazole] 10 mg PO DAILY 11/27/19 [History] Multivitamin [Daily Multiple Vitamin] 1 tab PO DAILY 11/27/19 [History] Sodium Bicarbonate 650 mg PO BID 11/27/19 [History] Past Medical History HEENT History: Reports: Hard of Hearing, Impaired Vision, Sinusitis Other HEENT History: wears eyeglasses for driving only Cardiovascular History: Reports: Heart Failure, High Cholesterol, Hypertension, SOB on Exertion Respiratory History: Reports: Bronchitis, Recurrent, COPD, Sleep Apnea Other Respiratory History: hypoxemic respiratory failure Gastrointestinal History: Reports: Diverticulosis, GERD Genitourinary History: Reports: Chronic Renal Insuffiency, Diabetic Nephropathy Other Genitourinary History: Hx of prostate cancer. [employer] History: Reports: None Musculoskeletal History: Reports: Arthritis Neurological History: Reports: Migraines Psychiatric History: Reports: Anxiety, Depression Endocrine/Metabolic History: Reports: Diabetes, Type II, Obesity/BMI 30+ Other Endocrine/Metabolic History: graves Hematologic History: Reports: None Immunologic History: Reports: None Oncologic (Cancer) History: Reports: Prostate - Infectious Disease History Infectious Disease History: Reports: Chicken Pox, Mumps - Past Surgical History Male Surgical History: Reports: None Social & Family History - Family History Cardiac: Reports: Heart Failure Respiratory: Reports: Asthma - Caffeine Use Caffeine Use: Reports: Coffee, Energy Drinks - Living Situation & Occupation Living situation: Reports: , with Spouse 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 Denies : Fever, Chills HEENT: Reports: Glasses, Other (This is vision is poor in both eyes got glaucoma in the left eye.) Respiratory: Reports: Shortness of Breath, Cough. Denies: Wheezing, Pleuritic Chest Pain (Mild COPD.), Sputum, Hemoptysis (Patient no cough) Cardiovascular: Reports: Blood Pressure Problem, Dyspnea on Exertion (Times edema of lower extremities), Edema. Denies: Chest Pain, Claudication, Lightheadedness, Orthopnea (Hypertension), Palpitations Endocrine: Reports: Fatigue GI/Abdominal: Denies: Abdominal Pain, Anorexia, Black Stool, Bloody Stool, Constipation, Diarrhea, Decreased Appetite, Difficulty Swallowing, Distension, Flatus, Hematemesis, Hematochezia, Melena : Reports: Frequency, Other (Anterior x3.) Musculoskeletal: Reports: Back Pain, Joint Pain Skin: Reports: No Symptoms (Except low back and neck at times) Neurological: Reports: Paresthesia Psychiatric: Reports: No Symptoms Hematologic/Lymphatic: Reports: No Symptoms Immunologic: Reports: No Symptoms ED EXAM GENERAL NO PERIP PULSE - Physical Exam Exam: See Below Exam Limited By: No Limitations General Appearance: Alert, WD/WN, Anxious, Mild Distress, Other (Temperature is 36.6 with a heart rate of 98. Respiratory is 18 BP elevated 161 105 O2 sats 99 % on room air.) Eye Exam: Bilateral Eye: Normal Inspection (No scleral icterus or blepharal pallor.) Throat/Mouth: Normal Lips, Normal Oropharynx, Other (Is mildly dry.) Head: Atraumatic, Normocephalic Neck: Normal Inspection, Supple, Non-Tender, Full Range of Motion. No: Carotid Bruit, Lymphadenopathy (L), Lymphadenopathy (R) Respiratory/Chest: No Respiratory Distress, Lungs Clear, Normal Breath Sounds, No Accessory Muscle Use, Chest Non-Tender Cardiovascular: Normal Peripheral Pulses, Regular Rate, Rhythm, No Edema, No Gallop, No Murmur, No Rub GI/Abdominal: Normal Bowel Sounds, Soft, Non-Tender, No Organomegaly, No Mass, Pelvis Stable Back Exam: Normal Inspection, Full Range of Motion. No: CVA Tenderness (L), CVA Tenderness (R) Extremities: Normal Inspection, Normal Range of Motion, Non-Tender Neurological: Alert, Oriented, CN II-XII Intact, Normal Cognition, Normal Gait Psychiatric: Normal Affect, Normal Mood Skin Exam: Warm, Dry, Intact, Normal Color, No Rash EKG INTERPRETATION EKG Date: 02/06/20 Time: 16:16 Rhythm: A-Fib (Rate of 72 135/min) Rate (Beats/Min): 100 (Paired ventricular complexes) [place]: Normal P-Wave: Absent QRS: Normal ST-T: Other QT: Normal EKG Interpretation Comments: Abnormal ECG Course - Vital Signs Last Recorded V/S: Last Vital Signs Temp 36.4 C 02/07/20 04:00 Pulse 98 02/06/20 15:43 Resp 18 02/07/20 04:00 BP 123/90 02/07/20 00:00 Pulse Ox 95 02/07/20 04:00 - Orders/Labs/Meds Orders: Active Orders 24 hr Category Date Time Status Patient Status [ADT] Routine ADT 02/06/20 18:27 Active Antiembolic Devices [RC] PER UNIT ROUTINE Care 02/06/20 18:29 Inactive Bedrest Bathroom Privileges [RC] .ASDIRECTED Care 02/06/20 18:27 Active Blood Glucose Check, Bedside [RC] TIDAC Care 02/06/20 18:27 Active Communication Order [RC] ASDIRECTED Care 02/06/20 18:27 Active Height and Weight [RC] 04 Care 02/06/20 18:27 Active Insert Urinary Catheter [OM.PC] Stat Care 02/06/20 18:27 Ordered Intake and Output [RC] Q2HR Care 02/06/20 18:28 Active Oxygen Therapy [RC] .PRN Care 02/06/20 18:27 Active Pulse Oximetry [RC] .PRN Care 02/06/20 18:28 Active Urinary Catheter Assessment [RC] Q4HR Care 02/06/20 18:28 Active VTE/DVT Education [RC] , Care 02/06/20 18:27 Active Respiratory Care Assess and Treatment [CONS] Routine Cons 02/06/20 18:27 Active Nothing per Oral Now Diet [DIET] Diet 02/07/20 Breakfast Active Nicotine [Habitrol] Med 02/07/20 09:00 Active 21 mg TRDERM DAILY Remove Patch Med 02/07/20 09:00 Active 1 ea TRDERM DAILY Antiembolic Hose [OM.PC] Per Unit Routine Oth 02/06/20 18:29 Ordered Resuscitation Status Routine Resus Stat 02/06/20 18:27 Ordered Medication Orders Docusate Sodium (Colace) 100 mg PO BID PRN PRN Reason: Constipation Last Admin: 02/07/20 00:10 Dose: 100 mg Hydralazine HCl (Apresoline) 10 mg IVPUSH Q2H PRN PRN Reason: Hypertension Insulin Human Regular 100 unit (/ Sodium Chloride) 100 mls @ 9.66 mls/hr IV TITRATE LAWRENCE; Protocol Last Titration: 02/07/20 02:06 Dose: 0 units/kg/hr, 0 mls/hr Titration: 02/07/20 01:22 Dose: 2 units/kg/hr, 193.23 mls/hr Titration: 02/07/20 00:14 Dose: 0 units/kg/hr, 0 mls/hr Admin: 02/07/20 00:12 Dose: 2 units/kg/hr, 193.23 mls/hr Potassium Chloride/Sodium Chloride (1/2 Ns With 20 Meq Kcl) 1,000 mls @ 150 mls /hr IV ASDIRECTED LAWRENCE Last Admin: 02/07/20 02:15 Dose: 150 mls/hr Miscellaneous Information (Remove Patch) 1 ea TRDERM DAILY [facility] Morphine Sulfate (Morphine) 1 mg IVPUSH Q6H PRN PRN Reason: Pain Last Admin: 02/06/20 22:37 Dose: 1 mg Nicotine (Habitrol) 21 mg TRDERM DAILY LA[facility]ENCE Labs: Laboratory Tests 02/06/20 02/06/20 02/06/20 Range/Units 16:27 16:27 16:27 WBC 10.87 H (4.23-9.07) K/mm3 RBC 4.93 (4.63-6.08) M/mm3 Hgb 14.9 (13.7-17.5) gm/dl Hct 44.0 (40.1-51.0) % MCV 89.2 D (79.0-92.2) fl MCH 30.2 (25.7-32.2) pg MCHC 33.9 (32.2-35.5) g/dl RDW Std Deviation 42.2 (35.1-43.9) fL Plt Count 168 (163-337) K/mm3 MPV 11.1 (9.4-12.3) fl Neut % (Auto) 64.0 (34.0-67.9) % Lymph % (Auto) 21.4 L (21.8-53.1) % [place] % (Auto) 10.7 (5.3-12.2) % Eos % (Auto) 2.8 (0.8-7.0) Baso % (Auto) 0.8 (0.1-1.2) % Neut # (Auto) 6.96 H (1.78-5.38) K/mm3 Lymph # (Auto) 2.33 (1.32-3.57) K/mm3 [place] # (Auto) 1.16 H (0.30-0.82) K/mm3 Eos # (Auto) 0.30 (0.04-0.54) K/mm3 Baso # (Auto) 0.09 H (0.01-0.08) K/mm3 Manual Slide Review Normal smear ESR (0-15) mm/hr PT 10.6 (9.7-12.0) SECONDS INR 0.97 APTT 32 H (22-31) SECONDS Puncture Site ABG pH (7.35-7.45) ABG pCO2 (35.0-45.0) mmHg ABG pO2 (80.0-100.0) mmHg ABG HCO3 (22.0-26.0) meq/L ABG O2 Saturation (96.0-97.0) % ABG Base Excess (-2-2.0) A-a Gradient mmHg O2 Delivery Device Oxygen Flow Rate FiO2 (21.00-100.00) % Sodium 135 L (136-145) mEq/L Potassium 4.6 (3.5-5.1) mEq/L Chloride 98 (98-107) mEq/L Carbon Dioxide 27 (21-32) mEq/L Anion Gap 14.6 (5-15) BUN 36 H (7-18) mg/dL Creatinine 2.5 H (0.7-1.3) mg/dL Est Cr Clr Drug Dosing 31.63 mL/min Estimated GFR (MDRD) 26 (>60) mL/min BUN/Creatinine Ratio 14.4 (14-18) Glucose 485 H (80-115) mg/dL POC Glucose (80-115) mg/dL Hemoglobin A1c (4.50-6.20) % Serum Osmolality 318 H (280-300) mosm/kg Lactic Acid (0.4-2.0) mmol/L Calcium 10.0 (8.5-10.1) mg/dL Phosphorus 4.3 (2.6-4.7) mg/dL Magnesium 2.3 (1.8-2.4) mg/dl Total Bilirubin 0.5 (0.2-1.0) mg/dL AST 14 L (15-37) U/L ALT 30 (16-63) U/L Alkaline Phosphatase 120 H (46-116) U/L Troponin I < 0.017 (0.00-0.056) ng/mL C-Reactive Protein < 0.2 (<1.0) mg/dL NT-Pro-B Natriuret Pep (0-125) pg/mL Total Protein 8.0 (6.4-8.2) g/dl Albumin 4.1 (3.4-5.0) g/dl Globulin 3.9 gm/dL Albumin/Globulin Ratio 1.1 (1-2) Urine Color (Yellow) Urine Appearance (Clear) Urine pH (5.0-8.0) Ur Specific [place] (1.005-1.030) Urine Protein (Negative) Urine Glucose (UA) (Negative) Urine Ketones (Negative) Urine Occult Blood (Negative) Urine Nitrite (Negative) Urine Bilirubin (Negative) Urine Urobilinogen (0.2-1.0) Ur Leukocyte Esterase (Negative) Urine RBC (0-5) /hpf Urine WBC (0-5) /hpf Ur Squamous Epith Cells (0-5) /hpf Urine Bacteria (FEW) /hpf Urine Mucus (FEW) /hpf Ketones (0.0-0.3) mM 02/06/20 02/06/20 02/06/20 Range/Units 16:27 16:27 16:27 WBC (4.23-9.07) K/mm3 RBC (4.63-6.08) M/mm3 Hgb (13.7-17.5) gm/dl Hct (40.1-51.0) % MCV (79.0-92.2) fl MCH (25.7-32.2) pg MCHC (32.2-35.5) g/dl RDW Std Deviation (35.1-43.9) fL Plt Count (163-337) K/mm3 MPV (9.4-12.3) fl Neut % (Auto) (34.0-67.9) % Lymph % (Auto) (21.8-53.1) % [place] % (Auto) (5.3-12.2) % Eos % (Auto) (0.8-7.0) Baso % (Auto) (0.1-1.2) % Neut # (Auto) (1.78-5.38) K/mm3 Lymph # (Auto) (1.32-3.57) K/mm3 [place] # (Auto) (0.30-0.82) K/mm3 Eos # (Auto) (0.04-0.54) K/mm3 Baso # (Auto) (0.01-0.08) K/mm3 Manual Slide Review ESR 40 H (0-15) mm/hr PT (9.7-12.0) SECONDS INR APTT (22-31) SECONDS Puncture Site ABG pH (7.35-7.45) ABG pCO2 (35.0-45.0) mmHg ABG pO2 (80.0-100.0) mmHg ABG HCO3 (22.0-26.0) meq/L ABG O2 Saturation (96.0-97.0) % ABG Base Excess (-2-2.0) A-a Gradient mmHg O2 Delivery Device Oxygen Flow Rate FiO2 (21.00-100.00) % Sodium (136-145) mEq/L Potassium (3.5-5.1) mEq/L Chloride (98-107) mEq/L Carbon Dioxide (21-32) mEq/L Anion Gap (5-15) BUN (7-18) mg/dL Creatinine (0.7-1.3) mg/dL Est Cr Clr Drug Dosing mL/min Estimated GFR (MDRD) (>60) mL/min BUN/Creatinine Ratio (14-18) Glucose (80-115) mg/dL POC Glucose (80-115) mg/dL Hemoglobin A1c (4.50-6.20) % Serum Osmolality (280-300) mosm/kg Lactic Acid (0.4-2.0) mmol/L Calcium (8.5-10.1) mg/dL Phosphorus (2.6-4.7) mg/dL Magnesium (1.8-2.4) mg/dl Total Bilirubin (0.2-1.0) mg/dL AST (15-37) U/L ALT (16-63) U/L Alkaline Phosphatase (46-116) U/L Troponin I (0.00-0.056) ng/mL C-Reactive Protein (<1.0) mg/dL NT-Pro-B Natriuret Pep 865 H (0-125) pg/mL Total Protein (6.4-8.2) g/dl Albumin (3.4-5.0) g/dl Globulin gm/dL Albumin/Globulin Ratio (1-2) Urine Color (Yellow) Urine Appearance (Clear) Urine pH (5.0-8.0) Ur Specific [place] (1.005-1.030) Urine Protein (Negative) Urine Glucose (UA) (Negative) Urine Ketones (Negative) Urine Occult Blood (Negative) Urine Nitrite (Negative) Urine Bilirubin (Negative) Urine Urobilinogen (0.2-1.0) Ur Leukocyte Esterase (Negative) Urine RBC (0-5) /hpf Urine WBC (0-5) /hpf Ur Squamous Epith Cells (0-5) /hpf Urine Bacteria (FEW) /hpf Urine Mucus (FEW) /hpf Ketones 0.14 (0.0-0.3) mM 02/06/20 02/06/20 02/06/20 Range/Units 16:27 16:53 17:23 WBC (4.23-9.07) K/mm3 RBC (4.63-6.08) M/mm3 Hgb (13.7-17.5) gm/dl Hct (40.1-51.0) % MCV (79.0-92.2) fl MCH (25.7-32.2) pg MCHC (32.2-35.5) g/dl RDW Std Deviation (35.1-43.9) fL Plt Count (163-337) K/mm3 MPV (9.4-12.3) fl Neut % (Auto) (34.0-67.9) % Lymph % (Auto) (21.8-53.1) % [place] % (Auto) (5.3-12.2) % Eos % (Auto) (0.8-7.0) Baso % (Auto) (0.1-1.2) % Neut # (Auto) (1.78-5.38) K/mm3 Lymph # (Auto) (1.32-3.57) K/mm3 [place] # (Auto) (0.30-0.82) K/mm3 Eos # (Auto) (0.04-0.54) K/mm3 Baso # (Auto) (0.01-0.08) K/mm3 Manual Slide Review ESR (0-15) mm/hr PT (9.7-12.0) SECONDS INR APTT (22-31) SECONDS Puncture Site ABG pH (7.35-7.45) ABG pCO2 (35.0-45.0) mmHg ABG pO2 (80.0-100.0) mmHg ABG HCO3 (22.0-26.0) meq/L ABG O2 Saturation (96.0-97.0) % ABG Base Excess (-2-2.0) A-a Gradient mmHg O2 Delivery Device Oxygen Flow Rate FiO2 (21.00-100.00) % Sodium (136-145) mEq/L Potassium (3.5-5.1) mEq/L Chloride (98-107) mEq/L Carbon Dioxide (21-32) mEq/L Anion Gap (5-15) BUN (7-18) mg/dL Creatinine (0.7-1.3) mg/dL Est Cr Clr Drug Dosing mL/min Estimated GFR (MDRD) (>60) mL/min BUN/Creatinine Ratio (14-18) Glucose (80-115) mg/dL POC Glucose (80-115) mg/dL Hemoglobin A1c 9.60 H (4.50-6.20) % Serum Osmolality (280-300) mosm/kg Lactic Acid 1.6 (0.4-2.0) mmol/L Calcium (8.5-10.1) mg/dL Phosphorus (2.6-4.7) mg/dL Magnesium (1.8-2.4) mg/dl Total Bilirubin (0.2-1.0) mg/dL AST (15-37) U/L ALT (16-63) U/L Alkaline Phosphatase (46-116) U/L Troponin I (0.00-0.056) ng/mL C-Reactive Protein (<1.0) mg/dL NT-Pro-B Natriuret Pep (0-125) pg/mL Total Protein (6.4-8.2) g/dl Albumin (3.4-5.0) g/dl Globulin gm/dL Albumin/Globulin Ratio (1-2) Urine Color Light yellow (Yellow) Urine Appearance Clear (Clear) Urine pH 6.5 (5.0-8.0) Ur Specific [place] 1.020 (1.005-1.030) Urine Protein 2+ H (Negative) Urine Glucose (UA) 2+ H (Negative) Urine Ketones Negative (Negative) Urine Occult Blood Trace-intact H (Negative) Urine Nitrite Negative (Negative) Urine Bilirubin Negative (Negative) Urine Urobilinogen 0.2 (0.2-1.0) Ur Leukocyte Esterase Negative (Negative) Urine RBC 0-5 (0-5) /hpf Urine WBC 5-10 H (0-5) /hpf Ur Squamous Epith Cells 0-5 (0-5) /hpf Urine Bacteria Not seen (FEW) /hpf Urine Mucus Not seen (FEW) /hpf Ketones (0.0-0.3) mM 02/06/20 02/06/20 02/06/20 Range/Units 18:10 18:57 19:18 WBC (4.23-9.07) K/mm3 RBC (4.63-6.08) M/mm3 Hgb (13.7-17.5) gm/dl Hct (40.1-51.0) % MCV (79.0-92.2) fl MCH (25.7-32.2) pg MCHC (32.2-35.5) g/dl RDW Std Deviation (35.1-43.9) fL Plt Count (163-337) K/mm3 MPV (9.4-12.3) fl Neut % (Auto) (34.0-67.9) % Lymph % (Auto) (21.8-53.1) % [place] % (Auto) (5.3-12.2) % Eos % (Auto) (0.8-7.0) Baso % (Auto) (0.1-1.2) % Neut # (Auto) (1.78-5.38) K/mm3 Lymph # (Auto) (1.32-3.57) K/mm3 [place] # (Auto) (0.30-0.82) K/mm3 Eos # (Auto) (0.04-0.54) K/mm3 Baso # (Auto) (0.01-0.08) K/mm3 Manual Slide Review ESR (0-15) mm/hr PT (9.7-12.0) SECONDS INR APTT (22-31) SECONDS Puncture Site Lt radial ABG pH 7.38 (7.35-7.45) ABG pCO2 47.3 H (35.0-45.0) mmHg ABG pO2 70.0 L (80.0-100.0) mmHg ABG HCO3 27.1 H (22.0-26.0) meq/L ABG O2 Saturation 93.7 L (96.0-97.0) % ABG Base Excess 1.8 (-2-2.0) A-a Gradient 21 mmHg O2 Delivery Device Room air Oxygen Flow Rate 0.0 FiO2 21.00 (21.00-100.00) % Sodium (136-145) mEq/L Potassium (3.5-5.1) mEq/L Chloride (98-107) mEq/L Carbon Dioxide (21-32) mEq/L Anion Gap (5-15) BUN (7-18) mg/dL Creatinine (0.7-1.3) mg/dL Est Cr Clr Drug Dosing mL/min Estimated GFR (MDRD) (>60) mL/min BUN/Creatinine Ratio (14-18) Glucose (80-115) mg/dL POC Glucose 377 H 278 H (80-115) mg/dL Hemoglobin A1c (4.50-6.20) % Serum Osmolality (280-300) mosm/kg Lactic Acid (0.4-2.0) mmol/L Calcium (8.5-10.1) mg/dL Phosphorus (2.6-4.7) mg/dL Magnesium (1.8-2.4) mg/dl Total Bilirubin (0.2-1.0) mg/dL AST (15-37) U/L ALT (16-63) U/L Alkaline Phosphatase (46-116) U/L Troponin I (0.00-0.056) ng/mL C-Reactive Protein (<1.0) mg/dL NT-Pro-B Natriuret Pep (0-125) pg/mL Total Protein (6.4-8.2) g/dl Albumin (3.4-5.0) g/dl Globulin gm/dL Albumin/Globulin Ratio (1-2) Urine Color (Yellow) Urine Appearance (Clear) Urine pH (5.0-8.0) Ur Specific [place] (1.005-1.030) Urine Protein (Negative) Urine Glucose (UA) (Negative) Urine Ketones (Negative) Urine Occult Blood (Negative) Urine Nitrite (Negative) Urine Bilirubin (Negative) Urine Urobilinogen (0.2-1.0) Ur Leukocyte Esterase (Negative) Urine RBC (0-5) /hpf Urine WBC (0-5) /hpf Ur Squamous Epith Cells (0-5) /hpf Urine Bacteria (FEW) /hpf Urine Mucus (FEW) /hpf Ketones (0.0-0.3) mM Meds: Medications Generic Name Dose Route Start Last Admin Trade Name Freq PRN Reason Stop Dose Admin Docusate Sodium 100 mg 02/06/20 22:39 02/07/20 00:10 Colace PO 100 mg BID PRN Administration Constipation Hydralazine HCl 10 mg 02/06/20 20:01 Apresoline IVPUSH Q2H PRN Hypertension Insulin Human Regular 100 unit 100 mls @ 9.66 mls/hr 02/06/20 20:15 02/07/20 02:06 / Sodium Chloride IV Infused TITRATE [facility]ENCE Titration Protocol 0.1 UNITS/KG/HR Potassium Chloride/Sodium Chloride 1,000 mls @ 150 mls/hr 02/07/20 02:15 02:15 1/2 Ns With 20 Meq Kcl IV 150 mls/hr ASDIRECTED [facility]ENCE Administration Miscellaneous Information 1 ea 02/07/20 09:00 Remove Patch TRDERM DAILY [facility] Morphine Sulfate 1 mg 02/06/20 21:51 02/06/20 22:37 Morphine IVPUSH 1 mg Q6H PRN Administration Pain Nicotine 21 mg 02/07/20 09:00 Habitrol TRDERM DAILY [facility] Discontinued Medications Generic Name Dose Route Start Last Admin Trade Name Freq PRN Reason Stop Dose Admin Hydromorphone HCl 1 mg 02/06/20 17:25 02/06/20 17:34 Dilaudid IVPUSH 02/06/20 17:26 1 mg ONETIME ONE Administration Sodium Chloride 1,000 mls @ 999 mls/hr 02/06/20 16:15 Normal Saline IV ASDIRECTED LAWRENCE Lactated Ringer's 1,000 mls @ 999 mls/hr 02/06/20 16:15 02/06/20 16:29 Ringers, Lactated IV 999 mls/hr .BOLUS [facility] Administration Insulin Human Regular 100 unit 100 mls @ 386.46 mls/hr 02/06/20 17:30 20:54 / Sodium Chloride IV Infused TITRATE [facility]ENCE Titration Protocol 4 UNITS/KG/HR Lactated Ringer's 1,000 mls @ 500 mls/hr 02/06/20 18:15 Ringers, Lactated IV .BOLUS LA[facility]ENCE Insulin Human Regular 100 unit 100 mls @ 9.66 mls/hr 02/06/20 18:30 / Sodium Chloride IV TITRATE [facility] Protocol 0.1 UNITS/KG/HR Potassium Chloride/Sodium Chloride 1,000 mls @ 250 mls/hr 02/06/20 19:45 01:16 1/2 Ns With 20 Meq Kcl IV 150 mls/hr ASDIRECTED [facility] Administration Sodium Chloride 1,000 mls @ 999 mls/hr 02/06/20 19:45 Sodium Chloride 0.45% IV 02/07/20 20:46 ASDIRECTED [facility] Potassium Chloride/Dextrose/Sod Cl 1,000 mls @ 150 mls/hr 02/06/20 21:00 21:25 D5 1/2 Ns W/ 20 Meq/L Kcl IV 150 mls/hr ASDIRECTED [facility] Administration Ondansetron HCl 4 mg 02/06/20 17:25 02/06/20 17:34 Zofran IVPUSH 02/06/20 17:26 4 mg ONETIME ONE Administration - Radiology Interpretation Free Text/Narrative:: 64-year-old male presents to the ED for evaluation of reportedly blood sugars greater than 600 at the [place] [facility] today. He states his blood sugars have been very poorly controlled since he was taken off Trulicity due to financial concerns. He is currently on Lantus 31 units twice daily and he states is just not doing the job. Sounds like he is just not on enough insulin. Headache rate he does have symptoms in terms of frequency and feels dehydrated. He has known coronary artery disease with previous myocardial infarction. He has known mild COPD from cigarette smoking. He has been diabetic for greater than 10 years. Plan IV Ringer's lactate at open. Blood sugar check including glycosylated protein. Routine labs including serum phosphorus and ketones and lactic acid. - Re-Assessments/Exams Free Text/Narrative Re-Assessment/Exam: 02/06/20 16:32 x-ray reveals heart size to be within normal limits. Tortuous thoracic aorta is seen. Chronic blunting of the left, left costophrenic angle is appreciated. Lungs show no acute parenchymal changes. Bony structures are grossly intact. Free Text/Narrative Re-Assessment/Exam: 02/06/20 17:24 Hematology reveals a white count of 10.87. Differential is 64% neutrophils hemoglobin is 14.9 with hematocrit of 44.0. Platelet count is 168, 000. Sed rate is 40. Manual slide review is pending. PT is 10.6 with an INR of 0.97 PTT is 32. Sodium is slightly low at 135 with a potassium of 4.6. Chloride is 98 with a bicarb of 27. Anion gap is 14.6. BUN is 36 with a creatinine of 2.5 and a GFR of only 26 i.e. stage IV chronic kidney disease. Glucose is elevated at 485. Hemoglobin A1c is markedly elevated at 9.60 indicating very poor blood sugar control. Serum osmolality is pending. Calcium is 10.0 phosphorus is 4.3 magnesium is 2.3. Liver function is normal. Troponin I is less than 0.017. C-reactive protein is less than 0.2 BNP is 865. Total protein is 8.0 albumin fraction is 4.1 ketones and lactic acid are pending. 02/06/20 17:26 is having increasing pain in his right shoulder in particular posterior shoulder. I suspect he has rotator cuff disease. He appears to have a rib head subluxation at T4. What he is talking about is shoulder separation as he clinically has a grade 3 separation of the acromioclavicular joint. He indicates that his shoulder blade is dislocated which is impossible. It is possible that he has some paralysis of the long thoracic nerve but I could not examine him properly in the room. I will start him on insulin drip at 4 units an hour. His blood sugar is greater than 450. His glycosylate protein is greater than 9.6 indicating very poor blood sugar control. He is in renal insufficiency stage IV with a EGFR of only 26. He is in mild congestive heart failure. Not take NSAIDs due to his poor kidney function. Will be given Dilaudid 1 mg IV with Zofran 4 mg IV for right upper shoulder pain which is obviously quite severe. Discussed case with Dr. Don on-call hospitalist with a view to admission to the hospital. 02/06/20 18:10 Sed rate is back and is 40. The manual differential is normal with no bandemia. Urinalysis shows 2+ proteinuria 2+ glucosuria and trace of occult blood. There are 5-10 WBCs per high-power field. Serum ketones are normal at 0.14 . Urine osmolality is mildly elevated at 318. Can liter of fluids is Ringer's lactate at 500 mils per hour since the patient is in mild congestive failure and is slightly over loaded. With associated poor renal function. Sugars to be checked q. hourly while on the drip. Discussed with on- call hospitalist Dr. Don and she will see the patient in the ED with a view to admission to the ICU because of insulin drip. Jugular to be done 1 hour after insulin drip has been started. Departure - Departure Time of Disposition: 20:35 Disposition: Admitted As Inpatient 68 Condition: Fair Clinical Impression: Uncontrolled type 2 diabetes mellitus - Discharge Information Sepsis Event Note - Evaluation Sepsis Screening Result: No Definite Risk - Focused Exam Date Exam was Performed: 02/07/20 Time Exam was Performed: 07:24
[2020-02-06] MEDS ORDERED: Sodium Chloride 0.9% 1,000 ML IV SCH (16:15)
[2020-02-06] MEDS ORDERED: Lactated Ringers 1,000 ML IV SCH ×2 (16:15→18:15)
--- NOTE | 2020-02-06 16:26 | CR ---
Chest: Portable view of the chest was obtained. Comparison: Prior chest x-ray of 06/25/19. Heart size is normal. Tortuous thoracic aorta is seen. Chronic blunting of the lateral left costophrenic angle is seen. Lungs show no acute parenchymal change. Bony structures are grossly intact. Impression: 1. Stable findings as noted above. 2. Nothing acute is appreciated on portable chest x-ray. Diagnostic code #2 Study was dictated in MDT
[2020-02-06 17:00] LABS: HEMOGLOBIN A1C 9.6 % (4.50-6.20)
[2020-02-06] MEDS ORDERED: Ondansetron 4 MG/2 ML SDV IVPUSH ONE (17:25)
[2020-02-06] MEDS ORDERED: HYDROmorphone 1 MG/ML Syringe IVPUSH ONE (17:25)
--- NOTE | 2020-02-06 18:37 | PCM.HP.2 ---
H&P History of Present Illness - General Date of Service: 02/06/20 Admit Problem/Dx: Admission Diagnosis/Problem Admission Diagnosis/Problem Hyperosmolar non-ketotic state in patient with type 2 diabetes mellitus - History of Present Illness Initial Comments - Free Text/Narative: This is a 64 year old male with extensive past medical history including uncontrolled diabetes, heart failure, COPD among other things who comes to the ED after being referred from [place] for hyperglycemia. As per patient he has not been in usual state of health since May 2019 when he was asked to retire from work and lost his health insurance. Patient states that he used to be very compliant with medications which at the time were Tresiba and Trulicity and with that regimen his glucose ranged in the low 110's and his HbA1c was less than 6. However after he lost his insurance the [place] changes his medications to Trulicity and Lantus and ever since then his glucose has been very hard to control He also states that his blood sugars have been "off" for approximately one month , he associates this to malaise, fatigue, loss of appetite, weakness, shortness of breath, nausea and vomiting. He verbalizes being very non-compliant with diet, eating "crappy food and sweets all the time" and eating only once a day. Today patient was in his telemedicine appointment when they measured his glucose to be around 600 for which he was sent to physical [place] clinic who sent patient here. Right Shoulder Pain Score (Numeric/FACES): 8 - Related Data Allergies/Adverse Reactions: Allergies Allergy/AdvReac Type Severity Reaction Status Date / Time Penicillins Allergy Hives Verified 02/06/20 15:54 Sulfa (Sulfonamide Allergy Hives Verified 02/06/20 15:54 Antibiotics) Home Medications: Home Meds Carvedilol [Coreg] 12.5 mg PO BID #0 09/19/18 [Rx] Cholecalciferol (Vitamin D3) [Vitamin D3] 1,000 unit PO DAILY #30 tablet [Rx] Rosuvastatin [Crestor] 10 mg PO BEDTIME #30 tablet 09/19/18 [Rx] Losartan [Cozaar] 100 mg PO DAILY tablet 05/23/19 [Rx] Albuterol Sulfate [Proair Respiclick] 2 puff IH BID 06/26/19 [History] Dulaglutide [Trulicity] 0.5 mg SQ SA 06/26/19 [History] amLODIPine [Norvasc] 10 mg PO DAILY 06/26/19 [History] Furosemide [Lasix] 40 mg PO BID #60 tab 06/27/19 [Rx] Apixaban [Eliquis] 5 mg PO DAILY 11/27/19 [History] Diclofenac Sodium [Voltaren 1% Gel] 1 dose TOP QID PRN 11/27/19 [History] Insulin Glarg,Human.Rec.Analog [Lantus] 24 units SQ BEDTIME 11/27/19 [History] Methimazole [Tapazole] 10 mg PO DAILY 11/27/19 [History] Multivitamin [Daily Multiple Vitamin] 1 tab PO DAILY 11/27/19 [History] Sodium Bicarbonate 650 mg PO BID 11/27/19 [History] Past Medical History HEENT History: Reports: Hard of Hearing, Impaired Vision, Sinusitis Other HEENT History: wears eyeglasses for driving only Cardiovascular History: Reports: Heart Failure, High Cholesterol, Hypertension, SOB on Exertion Respiratory History: Reports: Bronchitis, Recurrent, COPD, Sleep Apnea Other Respiratory History: hypoxemic respiratory failure Gastrointestinal History: Reports: Diverticulosis, GERD Genitourinary History: Reports: Chronic Renal Insuffiency, Diabetic Nephropathy Other Genitourinary History: Hx of prostate cancer. AIR DEFENSE CONTROL OFFICER History: Reports: None Musculoskeletal History: Reports: Arthritis Neurological History: Reports: Migraines Psychiatric History: Reports: Anxiety, Depression Endocrine/Metabolic History: Reports: Diabetes, Type II, Obesity/BMI 30+ Other Endocrine/Metabolic History: graves Hematologic History: Reports: None Immunologic History: Reports: None Oncologic (Cancer) History: Reports: Prostate - Infectious Disease History Infectious Disease History: Reports: Chicken Pox, Mumps - Past Surgical History Male Surgical History: Reports: None Social & Family History - Family History Family Medical History: Noncontributory Cardiac: Reports: Heart Failure Respiratory: Reports: Asthma - Tobacco Use Smoking Status *Q: Current Every Day Smoker Years of Tobacco use: 40 Packs/Tins Daily: 1 - Caffeine Use Caffeine Use: Reports: Coffee, Energy Drinks - Recreational Drug Use Recreational Drug Use: Yes Drug Use in Last 12 Months: No Recreational Drug Type: Reports: Marijuana/Hashish - Living Situation & Occupation Living situation: Reports: , with Spouse 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 Denies: Fever, Night Sweats, Diaphoresis HEENT: Reports: Headaches (tension). Denies: Dysphasia, Ear Pain, Eye Pain, Glasses, Post Nasal Drip, Sinus Congestion, Sore Throat Pulmonary: Reports: Shortness of Breath, Wheezing. Denies: Pleuritic Chest Pain , Cough, Sputum Cardiovascular: Reports: Palpitations, Dyspnea on Exertion. Denies: Chest Pain , Orthopnea, PND, Edema, Lightheadedness, Syncope, Claudication Gastrointestinal: Reports: Anorexia, Constipation (last bm this morning, once a day ), Decreased Appetite, Nausea, Vomiting. Denies: Abdominal Pain, Diarrhea, Difficulty Swallowing, Distension, Flatus Genitourinary: Reports: Frequency. Denies: Dysuria, Burning, Pain, Urgency, Incontinence, Hematuria, Discharge Musculoskeletal: Reports: Shoulder Pain (right, chronic) Skin: Reports: Dryness. Denies: Cyanosis, Jaundice, Mottled, Pallor, Diaphoresis, Bruising, Pruritis, Rash, Erythema, Wound, Burn(s) Psychiatric: Reports: Depression, Anxiety, Suicidal Ideation (shooting himself, has guns in house , am not going to shoot myself because I dont want to hurt people that say that they love me). Denies: Homicidal Ideation, Hallucinations (Auditory), Hallucinations (Visual) Neurological: Reports: Dizziness, Headache, Numbness, Paresthesia, Tingling. Denies: Seizure, Syncope Exam - Exam Exam: See Below - Vital Signs Vital Signs: Last Vital Signs Temp 98 F 02/06/20 15:43 Pulse 98 02/06/20 15:43 Resp 18 02/06/20 15:43 BP 161/105 H 02/06/20 15:43 Pulse Ox 99 02/06/20 15:43 Weight: 96.615 kg - Exam General: Alert, Oriented, Cooperative. No: Mild Distress HEENT: Conjunctiva Clear, EACs Clear, EOMI. No: Mucosa Moist & [place] (oral mucosa is dry) Neck: Supple, Full Range of Motion Lungs: Decreased Breath Sounds, Crackles. No: Rales, Rhonchi, Rub, Stridor, Wheezing Cardiovascular: Regular Rate, Regular Rhythm. No: Systolic Murmur, Diastolic Murmur, Rubs, Gallop/S3, Gallop/S4 GI/Abdominal Exam: Distended, Other (unable to auscultate bowel sounds). No: Guarding, Rigid, Rebound, Tender Back Exam: Normal Inspection. No: CVA Tenderness (L), CVA Tenderness (R), Paraspinal Tenderness, Vertebral Tenderness Extremities: Normal Inspection, Non-Tender, No Pedal Edema, Slow Capillary Refill Neuro Extensive - Mental Status: Alert, Oriented x3 Psychiatric: Labile Mood - Patient Data Result Diagrams: 02/06/20 16:27 02/06/20 16:27 Sepsis Event Note - Evaluation Sepsis Screening Result: No Definite Risk - Problem List (1) Hyperosmolar non-ketotic state in patient with type 2 diabetes mellitus SNOMED Code(s): 412036828, 470367869 ICD Code: E11.00 - TYPE 2 DIAB W HYPROSM W/O NONKET HYPRGLY-HYPROS COMA ( [facility]) Status: Acute Current Visit: Yes (2) Obstructive sleep apnea SNOMED Code(s): 17121735 ICD Code: G47.33 - OBSTRUCTIVE SLEEP APNEA (ADULT) (PEDIATRIC) Status: Acute Current Visit: Yes (3) Acute kidney injury SNOMED Code(s): 22310999, 33127489 ICD Code: N17.9 - ACUTE KIDNEY FAILURE, UNSPECIFIED Status: Acute Current Visit: Yes (4) Hyperosmolality SNOMED Code(s): 91783003 ICD Code: E87.0 - HYPEROSMOLALITY AND HYPERNATREMIA Status: Acute Current Visit: Yes (5) Uncontrolled hypertension SNOMED Code(s): 89552284, 73114339 ICD Code: I10 - ESSENTIAL (PRIMARY) HYPERTENSION Status: Acute Current Visit: No (6) Dyslipidemia SNOMED Code(s): 232625892 ICD Code: E78.5 - HYPERLIPIDEMIA, UNSPECIFIED Status: Acute Current Visit : Yes (7) Heart failure SNOMED Code(s): 99688924 ICD Code: I50.9 - HEART FAILURE, UNSPECIFIED Status: Acute Current Visit : Yes (8) COPD (chronic obstructive pulmonary disease) SNOMED Code(s): 96195352 ICD Code: J44.9 - CHRONIC OBSTRUCTIVE PULMONARY DISEASE, UNSPECIFIED Status : Acute Current Visit: Yes (9) Graves' disease SNOMED Code(s): 700970911 ICD Code: E05.00 - THYROTOXICOSIS W DIFFUSE GOITER W/O THYROTOXIC CRISIS Status: Acute Current Visit: Yes (10) Atrial fibrillation SNOMED Code(s): 38051634 ICD Code: I48.91 - UNSPECIFIED ATRIAL FIBRILLATION Status: Acute Current Visit: Yes (11) Depression SNOMED Code(s): 29921505 ICD Code: F32.9 - MAJOR DEPRESSIVE DISORDER, SINGLE EPISODE, UNSPECIFIED Status: Acute Current Visit: No (12) Vitamin D deficiency SNOMED Code(s): 90430644 ICD Code: E55.9 - VITAMIN D DEFICIENCY, UNSPECIFIED Status: Acute Current Visit: No (13) Uncontrolled diabetes mellitus SNOMED Code(s): 46241356, 045665389 ICD Code: E11.65 - TYPE 2 DIABETES MELLITUS WITH HYPERGLYCEMIA Status: Acute Current Visit: Yes (14) Noncompliance SNOMED Code(s): 3775892 ICD Code: Z91.19 - PATIENT'S NONCOMPLIANCE W OTH MEDICAL TREATMENT AND REGIMEN Status: Acute Current Visit: Yes (15) Inadequate social support SNOMED Code(s): 239579093 ICD Code: Z65.8 - OTH PROBLEMS RELATED TO PSYCHOSOCIAL CIRCUMSTANCES Status : Acute Current Visit: Yes (16) Adjustment disorder with mixed emotional features SNOMED Code(s): 10942927 ICD Code: F43.29 - ADJUSTMENT DISORDER WITH OTHER SYMPTOMS Status: Acute Current Visit: Yes (17) Chronic anticoagulation SNOMED Code(s): 024105118 ICD Code: Z79.01 - COMMUNICATION ELECTRONIC TECHNICIAN (CURRENT) USE OF ANTICOAGULANTS Status: Acute Current Visit: Yes (18) Glaucoma SNOMED Code(s): 36203018 ICD Code: H40.9 - UNSPECIFIED GLAUCOMA Status: Acute Current Visit: Yes Problem List Initiated/Reviewed/Updated: Yes Assessment/Plan Comment:: ASSESSMENT Day of Admission - Worsening glucose since 05/2019, acute worsening in past month - Very poor compliance with diet - Does not meet criteria for DKA, but does meet for HHS - PH> 7.3 (7.38) + Serum CO2 > 15 (27) + Mild/No ketonemia or ketonuria ( negative ketones in urine and ketones in blood 0.14, normal0.3) + normal gap - Compliant with CPAP every night - Smokes 1ppd for the past 40 years - Verbalized suicidal ideation with thoughts of shooting himself but wouldn't do it because he doesn't want to hurt the people that love him - Hyperosmolar non-ketotic state in patient with type 2 diabetes mellitus Uncontrolled diabetes mellitus, HbA1c 9.6 IV FLUIDS -1/2NS+ 20mEq at 250ml/hr until glucose below 300 - Then change to 1/2NS5DW at 150ml/hr INSULIN - 0.1u/kg insulin IV bolus - Insulin drip at 0.1u/kg/hr - If serum glucose does not fall by 50-70 in first hour, dose needs to be doubled - When serum glucose reaches 300, drop infusion rate to 0.02-0.05u/kg/hr - Keep sugar between 250-300 until patient is alert POTASSIUM - Urine output needs to be at least 50ml/hr - Depending on K level - Less than 3.3--> Hold insulin and give 20-30 mEq/K/hr until K >3.3 - Between 3.3 and 5.3--> Give 20-30mEq in each liter of IVF to keep serum K between 4 and 5 - Greater than 5.3--> Do not give K but check serum K every 2 hours LABS - BMP, Magnesium and phosphate every 2 hours Acute vs acute on chronic kidney disease - Urine output goal >50ml/hr - Strict I/Os - Renally dosed medications - Avoid nephrotoxic medications - Labs as per [facility] protocol Uncontrolled hypertension - Hold PO home medications - Hydralazine 10mg IV as needed Heart failure - [facility] protocol on conservative side regarding fluids - Strict I/Os - Daily weight - Repeat echocardiogram Obstructive sleep apnea - Continue home CPAP at pressure of 9 COPD (chronic obstructive pulmonary disease) Active smoker - Nicotine patch - Monitor oxygenation - Goal O2 > 88% Graves' disease - Hold home meds for tonight - If HHS not resolved by AM, transition to IV dosing Atrial fibrillation - Monitor rate - PRN metoprolol for rate >110 - Compression stockings for now Depression Adjustment disorder with mixed emotional features Noncompliance Inadequate social support - Psychiatry consult during admission - Patient advocate consult - Case management and social media coordinator consult Glaucoma - Continue home drops PROPHYLAXIS DVT- compression stockings GI- not indicated CODE STATUS: FULL CODE DISPOSITION: Patient will be admitted to the ICU insulin drip and [facility] protocol. SOCIAL: Lives alone, when asked about next of kin patient states he is alone [facility] is primary - Mortality Measure Prognosis:: Poor
[2020-02-06] MEDS ORDERED: Sodium Chloride 0.45% 1,000 ML IV SCH (19:45)
[2020-02-06] MEDS ORDERED: Sodium Chloride 0.45% with KCl 1,000 ML IV SCH ×2 (19:45)
[2020-02-06] MEDS ORDERED: hydrALAZINE 20 MG/ML SDV IVPUSH PRN (20:01)
[2020-02-06] MEDS ORDERED: D5 1/2 NS w/ 20 mEq/L KCl 1,000 ML IV SCH (21:00)
[2020-02-06] MEDS: Morphine 2 MG/ML SYRINGE IVPUSH PRN (22:37)
[2020-02-06] MEDS ORDERED: Docusate Sodium 100 MG Cap PO PRN (22:39)
[2020-02-07] MEDS: Sodium Chloride 0.45% with KCl 1,000 ML IV SCH ×2 (02:15→08:23)
[2020-02-07] MEDS: Nicotine 21 MG/24 Hr Patch TRDERM SCH (08:00)
[2020-02-07] MEDS: Morphine 2 MG/ML SYRINGE IVPUSH PRN (08:00)
[2020-02-07] MEDS ORDERED: Diclofenac Sodium 1% Gel 100 GM Tube TOP PRN (09:21)
[2020-02-07] MEDS ORDERED: amLODIPine 5 MG Tab PO SCH (09:30)
[2020-02-07] MEDS ORDERED: Apixaban 5 MG Tab PO SCH (09:30)
[2020-02-07] MEDS: Insulin Glarg,Human.Rec.Analog 100 Unit/ML SUBCUT SCH (11:04)
[2020-02-07] MEDS: Carvedilol 12.5 MG Tab PO SCH ×2 (11:05→21:58)
[2020-02-07] MEDS: Sodium Bicarbonate 650 MG Tab PO SCH ×2 (11:07→22:01)
[2020-02-07] MEDS: Insulin Lispro 100 Units/ML 3 ML Vial SUBCUT SCH ×4 (11:07→22:06)
[2020-02-07] MEDS: Furosemide 40 MG Tab PO SCH ×2 (11:07→20:09)
--- NOTE | 2020-02-07 16:45 | PCM.PN ---
- General Info Date of Service: 02/07/20 Admission Dx/Problem (Free Text): Admission Diagnosis/Problem Admission Diagnosis/Problem Hyperosmolar non-ketotic state in patient with type 2 diabetes mellitus Subjective Update: Patient is doing well and tolerating a diet. He denies any shortness of breath , nausea, vomiting. Does have some pain to the right shoulder and clavicle from an old fracture. - Review of Systems General: Reports: No Symptoms HEENT: Reports: No Symptoms Pulmonary: Reports: No Symptoms Cardiovascular: Reports: No Symptoms Gastrointestinal: Reports: No Symptoms Musculoskeletal: Reports: No Symptoms - Patient Data Vitals - Most Recent: Last Vital Signs Temp 98.2 F 02/07/20 12:42 Pulse 91 02/07/20 11:05 Resp 18 02/07/20 12:42 BP 143/87 H 02/07/20 12:42 Pulse Ox 96 02/07/20 12:42 Orthostatic Blood Pressure [ 151/95 Standing] Orthostatic Blood Pressure [ 154/111 Sitting] Orthostatic Blood Pressure [ 155/96 Supine] Weight - Most Recent: 214 lb I&O - Last 24 Hours: Intake & Output 02/07/20 02/07/20 02/07/20 06:59 14:59 22:59 Intake Total 1175 420 Output Total 1000 825 Balance 175 -405 Lab Results Last 24 Hours: Laboratory Results - last 24 hr 02/06/20 02/06/20 02/06/20 Range/Units 16:27 16:27 16:27 WBC 10.87 H (4.23-9.07) K/mm3 RBC 4.93 (4.63-6.08) M/mm3 Hgb 14.9 (13.7-17.5) gm/dl Hct 44.0 (40.1-51.0) % MCV 89.2 D (79.0-92.2) fl MCH 30.2 (25.7-32.2) pg MCHC 33.9 (32.2-35.5) g/dl RDW Std Deviation 42.2 (35.1-43.9) fL Plt Count 168 (163-337) K/mm3 MPV 11.1 (9.4-12.3) fl Neut % (Auto) 64.0 (34.0-67.9) % Lymph % (Auto) 21.4 L (21.8-53.1) % [place] % (Auto) 10.7 (5.3-12.2) % Eos % (Auto) 2.8 (0.8-7.0) Baso % (Auto) 0.8 (0.1-1.2) % Neut # (Auto) 6.96 H (1.78-5.38) K/mm3 Lymph # (Auto) 2.33 (1.32-3.57) K/mm3 [place] # (Auto) 1.16 H (0.30-0.82) K/mm3 Eos # (Auto) 0.30 (0.04-0.54) K/mm3 Baso # (Auto) 0.09 H (0.01-0.08) K/mm3 Manual Slide Review Normal smear ESR (0-15) mm/hr PT 10.6 (9.7-12.0) SECONDS INR 0.97 APTT 32 H (22-31) SECONDS Puncture Site ABG pH (7.35-7.45) ABG pCO2 (35.0-45.0) mmHg ABG pO2 (80.0-100.0) mmHg ABG HCO3 (22.0-26.0) meq/L ABG O2 Saturation (96.0-97.0) % ABG Base Excess (-2-2.0) A-a Gradient mmHg O2 Delivery Device Oxygen Flow Rate FiO2 (21.00-100.00) % Sodium 135 L (136-145) mEq/L Potassium 4.6 (3.5-5.1) mEq/L Chloride 98 (98-107) mEq/L Carbon Dioxide 27 (21-32) mEq/L Anion Gap 14.6 (5-15) BUN 36 H (7-18) mg/dL Creatinine 2.5 H (0.7-1.3) mg/dL Est Cr Clr Drug Dosing 31.63 mL/min Estimated GFR (MDRD) 26 (>60) mL/min BUN/Creatinine Ratio 14.4 (14-18) Glucose 485 H (80-115) mg/dL POC Glucose (80-115) mg/dL Hemoglobin A1c (4.50-6.20) % Serum Osmolality 318 H (280-300) mosm/kg Lactic Acid (0.4-2.0) mmol/L Calcium 10.0 (8.5-10.1) mg/dL Phosphorus 4.3 (2.6-4.7) mg/dL Magnesium 2.3 (1.8-2.4) mg/dl Total Bilirubin 0.5 (0.2-1.0) mg/dL AST 14 L (15-37) U/L ALT 30 (16-63) U/L Alkaline Phosphatase 120 H (46-116) U/L Troponin I < 0.017 (0.00-0.056) ng/mL C-Reactive Protein < 0.2 (<1.0) mg/dL NT-Pro-B Natriuret Pep (0-125) pg/mL Total Protein 8.0 (6.4-8.2) g/dl Albumin 4.1 (3.4-5.0) g/dl Globulin 3.9 gm/dL Albumin/Globulin Ratio 1.1 (1-2) Triglycerides (<150) mg/dL Cholesterol (<200) mg/dL LDL Cholesterol Direct (<100) mg/dL HDL Cholesterol (40-59) mg/dL Urine Color (Yellow) Urine Appearance (Clear) Urine pH (5.0-8.0) Ur Specific [place] (1.005-1.030) Urine Protein (Negative) Urine Glucose (UA) (Negative) Urine Ketones (Negative) Urine Occult Blood (Negative) Urine Nitrite (Negative) Urine Bilirubin (Negative) Urine Urobilinogen (0.2-1.0) Ur Leukocyte Esterase (Negative) Urine RBC (0-5) /hpf Urine WBC (0-5) /hpf Ur Squamous Epith Cells (0-5) /hpf Urine Bacteria (FEW) /hpf Urine Mucus (FEW) /hpf Ketones (0.0-0.3) mM 02/06/20 02/06/20 02/06/20 Range/Units 16:27 16:27 16:27 WBC (4.23-9.07) K/mm3 RBC (4.63-6.08) M/mm3 Hgb (13.7-17.5) gm/dl Hct (40.1-51.0) % MCV (79.0-92.2) fl MCH (25.7-32.2) pg MCHC (32.2-35.5) g/dl RDW Std Deviation (35.1-43.9) fL Plt Count (163-337) K/mm3 MPV (9.4-12.3) fl Neut % (Auto) (34.0-67.9) % Lymph % (Auto) (21.8-53.1) % [place] % (Auto) (5.3-12.2) % Eos % (Auto) (0.8-7.0) Baso % (Auto) (0.1-1.2) % Neut # (Auto) (1.78-5.38) K/mm3 Lymph # (Auto) (1.32-3.57) K/mm3 [place] # (Auto) (0.30-0.82) K/mm3 Eos # (Auto) (0.04-0.54) K/mm3 Baso # (Auto) (0.01-0.08) K/mm3 Manual Slide Review ESR 40 H (0-15) mm/hr PT (9.7-12.0) SECONDS INR APTT (22-31) SECONDS Puncture Site ABG pH (7.35-7.45) ABG pCO2 (35.0-45.0) mmHg ABG pO2 (80.0-100.0) mmHg ABG HCO3 (22.0-26.0) meq/L ABG O2 Saturation (96.0-97.0) % ABG Base Excess (-2-2.0) A-a Gradient mmHg O2 Delivery Device Oxygen Flow Rate FiO2 (21.00-100.00) % Sodium (136-145) mEq/L Potassium (3.5-5.1) mEq/L Chloride (98-107) mEq/L Carbon Dioxide (21-32) mEq/L Anion Gap (5-15) BUN (7-18) mg/dL Creatinine (0.7-1.3) mg/dL Est Cr Clr Drug Dosing mL/min Estimated GFR (MDRD) (>60) mL/min BUN/Creatinine Ratio (14-18) Glucose (80-115) mg/dL POC Glucose (80-115) mg/dL Hemoglobin A1c (4.50-6.20) % Serum Osmolality (280-300) mosm/kg Lactic Acid (0.4-2.0) mmol/L Calcium (8.5-10.1) mg/dL Phosphorus (2.6-4.7) mg/dL Magnesium (1.8-2.4) mg/dl Total Bilirubin (0.2-1.0) mg/dL AST (15-37) U/L ALT (16-63) U/L Alkaline Phosphatase (46-116) U/L Troponin I (0.00-0.056) ng/mL C-Reactive Protein (<1.0) mg/dL NT-Pro-B Natriuret Pep 865 H (0-125) pg/mL Total Protein (6.4-8.2) g/dl Albumin (3.4-5.0) g/dl Globulin gm/dL Albumin/Globulin Ratio (1-2) Triglycerides (<150) mg/dL Cholesterol (<200) mg/dL LDL Cholesterol Direct (<100) mg/dL HDL Cholesterol (40-59) mg/dL Urine Color (Yellow) Urine Appearance (Clear) Urine pH (5.0-8.0) Ur Specific [place] (1.005-1.030) Urine Protein (Negative) Urine Glucose (UA) (Negative) Urine Ketones (Negative) Urine Occult Blood (Negative) Urine Nitrite (Negative) Urine Bilirubin (Negative) Urine Urobilinogen (0.2-1.0) Ur Leukocyte Esterase (Negative) Urine RBC (0-5) /hpf Urine WBC (0-5) /hpf Ur Squamous Epith Cells (0-5) /hpf Urine Bacteria (FEW) /hpf Urine Mucus (FEW) /hpf Ketones 0.14 (0.0-0.3) mM 02/06/20 02/06/20 02/06/20 Range/Units 16:27 16:53 17:23 WBC (4.23-9.07) K/mm3 RBC (4.63-6.08) M/mm3 Hgb (13.7-17.5) gm/dl Hct (40.1-51.0) % MCV (79.0-92.2) fl MCH (25.7-32.2) pg MCHC (32.2-35.5) g/dl RDW Std Deviation (35.1-43.9) fL Plt Count (163-337) K/mm3 MPV (9.4-12.3) fl Neut % (Auto) (34.0-67.9) % Lymph % (Auto) (21.8-53.1) % [place] % (Auto) (5.3-12.2) % Eos % (Auto) (0.8-7.0) Baso % (Auto) (0.1-1.2) % Neut # (Auto) (1.78-5.38) K/mm3 Lymph # (Auto) (1.32-3.57) K/mm3 [place] # (Auto) (0.30-0.82) K/mm3 Eos # (Auto) (0.04-0.54) K/mm3 Baso # (Auto) (0.01-0.08) K/mm3 Manual Slide Review ESR (0-15) mm/hr PT (9.7-12.0) SECONDS INR APTT (22-31) SECONDS Puncture Site ABG pH (7.35-7.45) ABG pCO2 (35.0-45.0) mmHg ABG pO2 (80.0-100.0) mmHg ABG HCO3 (22.0-26.0) meq/L ABG O2 Saturation (96.0-97.0) % ABG Base Excess (-2-2.0) A-a Gradient mmHg O2 Delivery Device Oxygen Flow Rate FiO2 (21.00-100.00) % Sodium (136-145) mEq/L Potassium (3.5-5.1) mEq/L Chloride (98-107) mEq/L Carbon Dioxide (21-32) mEq/L Anion Gap (5-15) BUN (7-18) mg/dL Creatinine (0.7-1.3) mg/dL Est Cr Clr Drug Dosing mL/min Estimated GFR (MDRD) (>60) mL/min BUN/Creatinine Ratio (14-18) Glucose (80-115) mg/dL POC Glucose (80-115) mg/dL Hemoglobin A1c 9.60 H (4.50-6.20) % Serum Osmolality (280-300) mosm/kg Lactic Acid 1.6 (0.4-2.0) mmol/L Calcium (8.5-10.1) mg/dL Phosphorus (2.6-4.7) mg/dL Magnesium (1.8-2.4) mg/dl Total Bilirubin (0.2-1.0) mg/dL AST (15-37) U/L ALT (16-63) U/L Alkaline Phosphatase (46-116) U/L Troponin I (0.00-0.056) ng/mL C-Reactive Protein (<1.0) mg/dL NT-Pro-B Natriuret Pep (0-125) pg/mL Total Protein (6.4-8.2) g/dl Albumin (3.4-5.0) g/dl Globulin gm/dL Albumin/Globulin Ratio (1-2) Triglycerides (<150) mg/dL Cholesterol (<200) mg/dL LDL Cholesterol Direct (<100) mg/dL HDL Cholesterol (40-59) mg/dL Urine Color Light yellow (Yellow) Urine Appearance Clear (Clear) Urine pH 6.5 (5.0-8.0) Ur Specific [place] 1.020 (1.005-1.030) Urine Protein 2+ H (Negative) Urine Glucose (UA) 2+ H (Negative) Urine Ketones Negative (Negative) Urine Occult Blood Trace-intact H (Negative) Urine Nitrite Negative (Negative) Urine Bilirubin Negative (Negative) Urine Urobilinogen 0.2 (0.2-1.0) Ur Leukocyte Esterase Negative (Negative) Urine RBC 0-5 (0-5) /hpf Urine WBC 5-10 H (0-5) /hpf Ur Squamous Epith Cells 0-5 (0-5) /hpf Urine Bacteria Not seen (FEW) /hpf Urine Mucus Not seen (FEW) /hpf Ketones (0.0-0.3) mM 02/06/20 02/06/20 02/06/20 Range/Units 18:10 18:57 19:18 WBC (4.23-9.07) K/mm3 RBC (4.63-6.08) M/mm3 Hgb (13.7-17.5) gm/dl Hct (40.1-51.0) % MCV (79.0-92.2) fl MCH (25.7-32.2) pg MCHC (32.2-35.5) g/dl RDW Std Deviation (35.1-43.9) fL Plt Count (163-337) K/mm3 MPV (9.4-12.3) fl Neut % (Auto) (34.0-67.9) % Lymph % (Auto) (21.8-53.1) % [place] % (Auto) (5.3-12.2) % Eos % (Auto) (0.8-7.0) Baso % (Auto) (0.1-1.2) % Neut # (Auto) (1.78-5.38) K/mm3 Lymph # (Auto) (1.32-3.57) K/mm3 [place] # (Auto) (0.30-0.82) K/mm3 Eos # (Auto) (0.04-0.54) K/mm3 Baso # (Auto) (0.01-0.08) K/mm3 Manual Slide Review ESR (0-15) mm/hr PT (9.7-12.0) SECONDS INR APTT (22-31) SECONDS Puncture Site Lt radial ABG pH 7.38 (7.35-7.45) ABG pCO2 47.3 H (35.0-45.0) mmHg ABG pO2 70.0 L (80.0-100.0) mmHg ABG HCO3 27.1 H (22.0-26.0) meq/L ABG O2 Saturation 93.7 L (96.0-97.0) % ABG Base Excess 1.8 (-2-2.0) A-a Gradient 21 mmHg O2 Delivery Device Room air Oxygen Flow Rate 0.0 FiO2 21.00 (21.00-100.00) % Sodium (136-145) mEq/L Potassium (3.5-5.1) mEq/L Chloride (98-107) mEq/L Carbon Dioxide (21-32) mEq/L Anion Gap (5-15) BUN (7-18) mg/dL Creatinine (0.7-1.3) mg/dL Est Cr Clr Drug Dosing mL/min Estimated GFR (MDRD) (>60) mL/min BUN/Creatinine Ratio (14-18) Glucose (80-115) mg/dL POC Glucose 377 H 278 H (80-115) mg/dL Hemoglobin A1c (4.50-6.20) % Serum Osmolality (280-300) mosm/kg Lactic Acid (0.4-2.0) mmol/L Calcium (8.5-10.1) mg/dL Phosphorus (2.6-4.7) mg/dL Magnesium (1.8-2.4) mg/dl Total Bilirubin (0.2-1.0) mg/dL AST (15-37) U/L ALT (16-63) U/L Alkaline Phosphatase (46-116) U/L Troponin I (0.00-0.056) ng/mL C-Reactive Protein (<1.0) mg/dL NT-Pro-B Natriuret Pep (0-125) pg/mL Total Protein (6.4-8.2) g/dl Albumin (3.4-5.0) g/dl Globulin gm/dL Albumin/Globulin Ratio (1-2) Triglycerides (<150) mg/dL Cholesterol (<200) mg/dL LDL Cholesterol Direct (<100) mg/dL HDL Cholesterol (40-59) mg/dL Urine Color (Yellow) Urine Appearance (Clear) Urine pH (5.0-8.0) Ur Specific [place] (1.005-1.030) Urine Protein (Negative) Urine Glucose (UA) (Negative) Urine Ketones (Negative) Urine Occult Blood (Negative) Urine Nitrite (Negative) Urine Bilirubin (Negative) Urine Urobilinogen (0.2-1.0) Ur Leukocyte Esterase (Negative) Urine RBC (0-5) /hpf Urine WBC (0-5) /hpf Ur Squamous Epith Cells (0-5) /hpf Urine Bacteria (FEW) /hpf Urine Mucus (FEW) /hpf Ketones (0.0-0.3) mM 02/06/20 02/06/20 02/06/20 Range/Units 20:13 20:13 20:22 WBC (4.23-9.07) K/mm3 RBC (4.63-6.08) M/mm3 Hgb (13.7-17.5) gm/dl Hct (40.1-51.0) % MCV (79.0-92.2) fl MCH (25.7-32.2) pg MCHC (32.2-35.5) g/dl RDW Std Deviation (35.1-43.9) fL Plt Count (163-337) K/mm3 MPV (9.4-12.3) fl Neut % (Auto) (34.0-67.9) % Lymph % (Auto) (21.8-53.1) % [place] % (Auto) (5.3-12.2) % Eos % (Auto) (0.8-7.0) Baso % (Auto) (0.1-1.2) % Neut # (Auto) (1.78-5.38) K/mm3 Lymph # (Auto) (1.32-3.57) K/mm3 [place] # (Auto) (0.30-0.82) K/mm3 Eos # (Auto) (0.04-0.54) K/mm3 Baso # (Auto) (0.01-0.08) K/mm3 Manual Slide Review ESR (0-15) mm/hr PT (9.7-12.0) SECONDS INR APTT (22-31) SECONDS Puncture Site ABG pH (7.35-7.45) ABG pCO2 (35.0-45.0) mmHg ABG pO2 (80.0-100.0) mmHg ABG HCO3 (22.0-26.0) meq/L ABG O2 Saturation (96.0-97.0) % ABG Base Excess (-2-2.0) A-a Gradient mmHg O2 Delivery Device Oxygen Flow Rate FiO2 (21.00-100.00) % Sodium 140 (136-145) mEq/L Potassium 4.0 (3.5-5.1) mEq/L Chloride 102 (98-107) mEq/L Carbon Dioxide 27 (21-32) mEq/L Anion Gap 15.0 (5-15) BUN 33 H (7-18) mg/dL Creatinine 2.4 H (0.7-1.3) mg/dL Est Cr Clr Drug Dosing 32.95 mL/min Estimated GFR (MDRD) 28 (>60) mL/min BUN/Creatinine Ratio 13.8 L (14-18) Glucose 228 H (80-115) mg/dL POC Glucose 188 H (80-115) mg/dL Hemoglobin A1c (4.50-6.20) % Serum Osmolality (280-300) mosm/kg Lactic Acid (0.4-2.0) mmol/L Calcium 10.5 H (8.5-10.1) mg/dL Phosphorus 4.3 (2.6-4.7) mg/dL Magnesium 2.3 (1.8-2.4) mg/dl Total Bilirubin (0.2-1.0) mg/dL AST (15-37) U/L ALT (16-63) U/L Alkaline Phosphatase (46-116) U/L Troponin I (0.00-0.056) ng/mL C-Reactive Protein (<1.0) mg/dL NT-Pro-B Natriuret Pep (0-125) pg/mL Total Protein (6.4-8.2) g/dl Albumin (3.4-5.0) g/dl Globulin gm/dL Albumin/Globulin Ratio (1-2) Triglycerides 196 H (<150) mg/dL Cholesterol 146 (<200) mg/dL LDL Cholesterol Direct 81 (<100) mg/dL HDL Cholesterol 36.0 L (40-59) mg/dL Urine Color (Yellow) Urine Appearance (Clear) Urine pH (5.0-8.0) Ur Specific [place] (1.005-1.030) Urine Protein (Negative) Urine Glucose (UA) (Negative) Urine Ketones (Negative) Urine Occult Blood (Negative) Urine Nitrite (Negative) Urine Bilirubin (Negative) Urine Urobilinogen (0.2-1.0) Ur Leukocyte Esterase (Negative) Urine RBC (0-5) /hpf Urine WBC (0-5) /hpf Ur Squamous Epith Cells (0-5) /hpf Urine Bacteria (FEW) /hpf Urine Mucus (FEW) /hpf Ketones (0.0-0.3) mM 02/06/20 02/06/20 02/06/20 Range/Units 21:16 21:35 22:04 WBC (4.23-9.07) K/mm3 RBC (4.63-6.08) M/mm3 Hgb (13.7-17.5) gm/dl Hct (40.1-51.0) % MCV (79.0-92.2) fl MCH (25.7-32.2) pg MCHC (32.2-35.5) g/dl RDW Std Deviation (35.1-43.9) fL Plt Count (163-337) K/mm3 MPV (9.4-12.3) fl Neut % (Auto) (34.0-67.9) % Lymph % (Auto) (21.8-53.1) % [place] % (Auto) (5.3-12.2) % Eos % (Auto) (0.8-7.0) Baso % (Auto) (0.1-1.2) % Neut # (Auto) (1.78-5.38) K/mm3 Lymph # (Auto) (1.32-3.57) K/mm3 [place] # (Auto) (0.30-0.82) K/mm3 Eos # (Auto) (0.04-0.54) K/mm3 Baso # (Auto) (0.01-0.08) K/mm3 Manual Slide Review ESR (0-15) mm/hr PT (9.7-12.0) SECONDS INR APTT (22-31) SECONDS Puncture Site ABG pH (7.35-7.45) ABG pCO2 (35.0-45.0) mmHg ABG pO2 (80.0-100.0) mmHg ABG HCO3 (22.0-26.0) meq/L ABG O2 Saturation (96.0-97.0) % ABG Base Excess (-2-2.0) A-a Gradient mmHg O2 Delivery Device Oxygen Flow Rate FiO2 (21.00-100.00) % Sodium 142 (136-145) mEq/L Potassium 3.8 (3.5-5.1) mEq/L Chloride 104 (98-107) mEq/L Carbon Dioxide 28 (21-32) mEq/L Anion Gap 13.8 (5-15) BUN 34 H (7-18) mg/dL Creatinine 2.3 H (0.7-1.3) mg/dL Est Cr Clr Drug Dosing 34.38 mL/min Estimated GFR (MDRD) 29 (>60) mL/min BUN/Creatinine Ratio 14.8 (14-18) Glucose 155 H (80-115) mg/dL POC Glucose 139 H 130 H (80-115) mg/dL Hemoglobin A1c (4.50-6.20) % Serum Osmolality (280-300) mosm/kg Lactic Acid (0.4-2.0) mmol/L Calcium 9.9 (8.5-10.1) mg/dL Phosphorus 4.5 (2.6-4.7) mg/dL Magnesium 2.2 (1.8-2.4) mg/dl Total Bilirubin (0.2-1.0) mg/dL AST (15-37) U/L ALT (16-63) U/L Alkaline Phosphatase (46-116) U/L Troponin I (0.00-0.056) ng/mL C-Reactive Protein (<1.0) mg/dL NT-Pro-B Natriuret Pep (0-125) pg/mL Total Protein (6.4-8.2) g/dl Albumin (3.4-5.0) g/dl Globulin gm/dL Albumin/Globulin Ratio (1-2) Triglycerides (<150) mg/dL Cholesterol (<200) mg/dL LDL Cholesterol Direct (<100) mg/dL HDL Cholesterol (40-59) mg/dL Urine Color (Yellow) Urine Appearance (Clear) Urine pH (5.0-8.0) Ur Specific [place] (1.005-1.030) Urine Protein (Negative) Urine Glucose (UA) (Negative) Urine Ketones (Negative) Urine Occult Blood (Negative) Urine Nitrite (Negative) Urine Bilirubin (Negative) Urine Urobilinogen (0.2-1.0) Ur Leukocyte Esterase (Negative) Urine RBC (0-5) /hpf Urine WBC (0-5) /hpf Ur Squamous Epith Cells (0-5) /hpf Urine Bacteria (FEW) /hpf Urine Mucus (FEW) /hpf Ketones (0.0-0.3) mM 02/06/20 02/06/20 02/07/20 Range/Units 23:03 23:30 00:06 WBC (4.23-9.07) K/mm3 RBC (4.63-6.08) M/mm3 Hgb (13.7-17.5) gm/dl Hct (40.1-51.0) % MCV (79.0-92.2) fl MCH (25.7-32.2) pg MCHC (32.2-35.5) g/dl RDW Std Deviation (35.1-43.9) fL Plt Count (163-337) K/mm3 MPV (9.4-12.3) fl Neut % (Auto) (34.0-67.9) % Lymph % (Auto) (21.8-53.1) % [place] % (Auto) (5.3-12.2) % Eos % (Auto) (0.8-7.0) Baso % (Auto) (0.1-1.2) % Neut # (Auto) (1.78-5.38) K/mm3 Lymph # (Auto) (1.32-3.57) K/mm3 [place] # (Auto) (0.30-0.82) K/mm3 Eos # (Auto) (0.04-0.54) K/mm3 Baso # (Auto) (0.01-0.08) K/mm3 Manual Slide Review ESR (0-15) mm/hr PT (9.7-12.0) SECONDS INR APTT (22-31) SECONDS Puncture Site ABG pH (7.35-7.45) ABG pCO2 (35.0-45.0) mmHg ABG pO2 (80.0-100.0) mmHg ABG HCO3 (22.0-26.0) meq/L ABG O2 Saturation (96.0-97.0) % ABG Base Excess (-2-2.0) A-a Gradient mmHg O2 Delivery Device Oxygen Flow Rate FiO2 (21.00-100.00) % Sodium 141 (136-145) mEq/L Potassium 4.1 (3.5-5.1) mEq/L Chloride 105 (98-107) mEq/L Carbon Dioxide 27 (21-32) mEq/L Anion Gap 13.1 (5-15) BUN 34 H (7-18) mg/dL Creatinine 2.3 H (0.7-1.3) mg/dL Est Cr Clr Drug Dosing 34.38 mL/min Estimated GFR (MDRD) 29 (>60) mL/min BUN/Creatinine Ratio 14.8 (14-18) Glucose 145 H (80-115) mg/dL POC Glucose 146 H 138 H (80-115) mg/dL Hemoglobin A1c (4.50-6.20) % Serum Osmolality (280-300) mosm/kg Lactic Acid (0.4-2.0) mmol/L Calcium 9.9 (8.5-10.1) mg/dL Phosphorus 4.5 (2.6-4.7) mg/dL Magnesium 2.2 (1.8-2.4) mg/dl Total Bilirubin (0.2-1.0) mg/dL AST (15-37) U/L ALT (16-63) U/L Alkaline Phosphatase (46-116) U/L Troponin I (0.00-0.056) ng/mL C-Reactive Protein (<1.0) mg/dL NT-Pro-B Natriuret Pep (0-125) pg/mL Total Protein (6.4-8.2) g/dl Albumin (3.4-5.0) g/dl Globulin gm/dL Albumin/Globulin Ratio (1-2) Triglycerides (<150) mg/dL Cholesterol (<200) mg/dL LDL Cholesterol Direct (<100) mg/dL HDL Cholesterol (40-59) mg/dL Urine Color (Yellow) Urine Appearance (Clear) Urine pH (5.0-8.0) Ur Specific [place] (1.005-1.030) Urine Protein (Negative) Urine Glucose (UA) (Negative) Urine Ketones (Negative) Urine Occult Blood (Negative) Urine Nitrite (Negative) Urine Bilirubin (Negative) Urine Urobilinogen (0.2-1.0) Ur Leukocyte Esterase (Negative) Urine RBC (0-5) /hpf Urine WBC (0-5) /hpf Ur Squamous Epith Cells (0-5) /hpf Urine Bacteria (FEW) /hpf Urine Mucus (FEW) /hpf Ketones (0.0-0.3) mM 02/07/20 02/07/20 02/07/20 Range/Units 01:12 01:37 02:05 WBC (4.23-9.07) K/mm3 RBC (4.63-6.08) M/mm3 Hgb (13.7-17.5) gm/dl Hct (40.1-51.0) % MCV (79.0-92.2) fl MCH (25.7-32.2) pg MCHC (32.2-35.5) g/dl RDW Std Deviation (35.1-43.9) fL Plt Count (163-337) K/mm3 MPV (9.4-12.3) fl Neut % (Auto) (34.0-67.9) % Lymph % (Auto) (21.8-53.1) % [place] % (Auto) (5.3-12.2) % Eos % (Auto) (0.8-7.0) Baso % (Auto) (0.1-1.2) % Neut # (Auto) (1.78-5.38) K/mm3 Lymph # (Auto) (1.32-3.57) K/mm3 [place] # (Auto) (0.30-0.82) K/mm3 Eos # (Auto) (0.04-0.54) K/mm3 Baso # (Auto) (0.01-0.08) K/mm3 Manual Slide Review ESR (0-15) mm/hr PT (9.7-12.0) SECONDS INR APTT (22-31) SECONDS Puncture Site ABG pH (7.35-7.45) ABG pCO2 (35.0-45.0) mmHg ABG pO2 (80.0-100.0) mmHg ABG HCO3 (22.0-26.0) meq/L ABG O2 Saturation (96.0-97.0) % ABG Base Excess (-2-2.0) A-a Gradient mmHg O2 Delivery Device Oxygen Flow Rate FiO2 (21.00-100.00) % Sodium 140 (136-145) mEq/L Potassium 4.7 (3.5-5.1) mEq/L Chloride 105 (98-107) mEq/L Carbon Dioxide 27 (21-32) mEq/L Anion Gap 12.7 (5-15) BUN 32 H (7-18) mg/dL Creatinine 2.2 H (0.7-1.3) mg/dL Est Cr Clr Drug Dosing 35.95 mL/min Estimated GFR (MDRD) 30 (>60) mL/min BUN/Creatinine Ratio 14.5 (14-18) Glucose 163 H (80-115) mg/dL POC Glucose 153 H 142 H (80-115) mg/dL Hemoglobin A1c (4.50-6.20) % Serum Osmolality (280-300) mosm/kg Lactic Acid (0.4-2.0) mmol/L Calcium 9.6 (8.5-10.1) mg/dL Phosphorus 4.6 (2.6-4.7) mg/dL Magnesium 2.1 (1.8-2.4) mg/dl Total Bilirubin (0.2-1.0) mg/dL AST (15-37) U/L ALT (16-63) U/L Alkaline Phosphatase (46-116) U/L Troponin I (0.00-0.056) ng/mL C-Reactive Protein (<1.0) mg/dL NT-Pro-B Natriuret Pep (0-125) pg/mL Total Protein (6.4-8.2) g/dl Albumin (3.4-5.0) g/dl Globulin gm/dL Albumin/Globulin Ratio (1-2) Triglycerides (<150) mg/dL Cholesterol (<200) mg/dL LDL Cholesterol Direct (<100) mg/dL HDL Cholesterol (40-59) mg/dL Urine Color (Yellow) Urine Appearance (Clear) Urine pH (5.0-8.0) Ur Specific [place] (1.005-1.030) Urine Protein (Negative) Urine Glucose (UA) (Negative) Urine Ketones (Negative) Urine Occult Blood (Negative) Urine Nitrite (Negative) Urine Bilirubin (Negative) Urine Urobilinogen (0.2-1.0) Ur Leukocyte Esterase (Negative) Urine RBC (0-5) /hpf Urine WBC (0-5) /hpf Ur Squamous Epith Cells (0-5) /hpf Urine Bacteria (FEW) /hpf Urine Mucus (FEW) /hpf Ketones (0.0-0.3) mM 02/07/20 02/07/20 02/07/20 Range/Units 03:03 03:32 07:37 WBC (4.23-9.07) K/mm3 RBC (4.63-6.08) M/mm3 Hgb (13.7-17.5) gm/dl Hct (40.1-51.0) % MCV (79.0-92.2) fl MCH (25.7-32.2) pg MCHC (32.2-35.5) g/dl RDW Std Deviation (35.1-43.9) fL Plt Count (163-337) K/mm3 MPV (9.4-12.3) fl Neut % (Auto) (34.0-67.9) % Lymph % (Auto) (21.8-53.1) % [place] % (Auto) (5.3-12.2) % Eos % (Auto) (0.8-7.0) Baso % (Auto) (0.1-1.2) % Neut # (Auto) (1.78-5.38) K/mm3 Lymph # (Auto) (1.32-3.57) K/mm3 [place] # (Auto) (0.30-0.82) K/mm3 Eos # (Auto) (0.04-0.54) K/mm3 Baso # (Auto) (0.01-0.08) K/mm3 Manual Slide Review ESR (0-15) mm/hr PT (9.7-12.0) SECONDS INR APTT (22-31) SECONDS Puncture Site ABG pH (7.35-7.45) ABG pCO2 (35.0-45.0) mmHg ABG pO2 (80.0-100.0) mmHg ABG HCO3 (22.0-26.0) meq/L ABG O2 Saturation (96.0-97.0) % ABG Base Excess (-2-2.0) A-a Gradient mmHg O2 Delivery Device Oxygen Flow Rate FiO2 (21.00-100.00) % Sodium 141 (136-145) mEq/L Potassium 4.2 (3.5-5.1) mEq/L Chloride 106 (98-107) mEq/L Carbon Dioxide 26 (21-32) mEq/L Anion Gap 13.2 (5-15) BUN 31 H (7-18) mg/dL Creatinine 2.1 H (0.7-1.3) mg/dL Est Cr Clr Drug Dosing 37.66 mL/min Estimated GFR (MDRD) 32 (>60) mL/min BUN/Creatinine Ratio 14.8 (14-18) Glucose 126 H (80-115) mg/dL POC Glucose 120 H 152 H (80-115) mg/dL Hemoglobin A1c (4.50-6.20) % Serum Osmolality (280-300) mosm/kg Lactic Acid (0.4-2.0) mmol/L Calcium 9.2 (8.5-10.1) mg/dL Phosphorus 4.2 (2.6-4.7) mg/dL Magnesium 2.0 (1.8-2.4) mg/dl Total Bilirubin (0.2-1.0) mg/dL AST (15-37) U/L ALT (16-63) U/L Alkaline Phosphatase (46-116) U/L Troponin I (0.00-0.056) ng/mL C-Reactive Protein (<1.0) mg/dL NT-Pro-B Natriuret Pep (0-125) pg/mL Total Protein (6.4-8.2) g/dl Albumin (3.4-5.0) g/dl Globulin gm/dL Albumin/Globulin Ratio (1-2) Triglycerides (<150) mg/dL Cholesterol (<200) mg/dL LDL Cholesterol Direct (<100) mg/dL HDL Cholesterol (40-59) mg/dL Urine Color (Yellow) Urine Appearance (Clear) Urine pH (5.0-8.0) Ur Specific [place] (1.005-1.030) Urine Protein (Negative) Urine Glucose (UA) (Negative) Urine Ketones (Negative) Urine Occult Blood (Negative) Urine Nitrite (Negative) Urine Bilirubin (Negative) Urine Urobilinogen (0.2-1.0) Ur Leukocyte Esterase (Negative) Urine RBC (0-5) /hpf Urine WBC (0-5) /hpf Ur Squamous Epith Cells (0-5) /hpf Urine Bacteria (FEW) /hpf Urine Mucus (FEW) /hpf Ketones (0.0-0.3) mM 02/07/20 02/07/20 Range/Units 10:45 14:41 WBC (4.23-9.07) K/mm3 RBC (4.63-6.08) M/mm3 Hgb (13.7-17.5) gm/dl Hct (40.1-51.0) % MCV (79.0-92.2) fl MCH (25.7-32.2) pg MCHC (32.2-35.5) g/dl RDW Std Deviation (35.1-43.9) fL Plt Count (163-337) K/mm3 MPV (9.4-12.3) fl Neut % (Auto) (34.0-67.9) % Lymph % (Auto) (21.8-53.1) % [place] % (Auto) (5.3-12.2) % Eos % (Auto) (0.8-7.0) Baso % (Auto) (0.1-1.2) % Neut # (Auto) (1.78-5.38) K/mm3 Lymph # (Auto) (1.32-3.57) K/mm3 [place] # (Auto) (0.30-0.82) K/mm3 Eos # (Auto) (0.04-0.54) K/mm3 Baso # (Auto) (0.01-0.08) K/mm3 Manual Slide Review ESR (0-15) mm/hr PT (9.7-12.0) SECONDS INR APTT (22-31) SECONDS Puncture Site ABG pH (7.35-7.45) ABG pCO2 (35.0-45.0) mmHg ABG pO2 (80.0-100.0) mmHg ABG HCO3 (22.0-26.0) meq/L ABG O2 Saturation (96.0-97.0) % ABG Base Excess (-2-2.0) A-a Gradient mmHg O2 Delivery Device Oxygen Flow Rate FiO2 (21.00-100.00) % Sodium (136-145) mEq/L Potassium (3.5-5.1) mEq/L Chloride (98-107) mEq/L Carbon Dioxide (21-32) mEq/L Anion Gap (5-15) BUN (7-18) mg/dL Creatinine (0.7-1.3) mg/dL Est Cr Clr Drug Dosing mL/min Estimated GFR (MDRD) (>60) mL/min BUN/Creatinine Ratio (14-18) Glucose (80-115) mg/dL POC Glucose 140 H 248 H (80-115) mg/dL Hemoglobin A1c (4.50-6.20) % Serum Osmolality (280-300) mosm/kg Lactic Acid (0.4-2.0) mmol/L Calcium (8.5-10.1) mg/dL Phosphorus (2.6-4.7) mg/dL Magnesium (1.8-2.4) mg/dl Total Bilirubin (0.2-1.0) mg/dL AST (15-37) U/L ALT (16-63) U/L Alkaline Phosphatase (46-116) U/L Troponin I (0.00-0.056) ng/mL C-Reactive Protein (<1.0) mg/dL NT-Pro-B Natriuret Pep (0-125) pg/mL Total Protein (6.4-8.2) g/dl Albumin (3.4-5.0) g/dl Globulin gm/dL Albumin/Globulin Ratio (1-2) Triglycerides (<150) mg/dL Cholesterol (<200) mg/dL LDL Cholesterol Direct (<100) mg/dL HDL Cholesterol (40-59) mg/dL Urine Color (Yellow) Urine Appearance (Clear) Urine pH (5.0-8.0) Ur Specific [place] (1.005-1.030) Urine Protein (Negative) Urine Glucose (UA) (Negative) Urine Ketones (Negative) Urine Occult Blood (Negative) Urine Nitrite (Negative) Urine Bilirubin (Negative) Urine Urobilinogen (0.2-1.0) Ur Leukocyte Esterase (Negative) Urine RBC (0-5) /hpf Urine WBC (0-5) /hpf Ur Squamous Epith Cells (0-5) /hpf Urine Bacteria (FEW) /hpf Urine Mucus (FEW) /hpf Ketones (0.0-0.3) mM Med Orders - Current: Current Medications Amlodipine Besylate (Norvasc) 10 mg PO DAILY [facility] Last Admin: 02/07/20 11:07 Dose: 10 mg Apixaban (Eliquis) 5 mg PO BID [facility] Carvedilol (Coreg) 12.5 mg PO BID [facility] Last Admin: 02/07/20 11:05 Dose: 12.5 mg Cholecalciferol (Vitamin D3) 25 mcg PO DAILY [facility] Diclofenac Sodium (Voltaren 1% Gel) 0 gm TOP QID PRN PRN Reason: Pain Docusate Sodium (Colace) 100 mg PO BID PRN PRN Reason: Constipation Last Admin: 02/07/20 00:10 Dose: 100 mg Furosemide (Lasix) 40 mg PO BID [facility] Last Admin: 02/07/20 11:07 Dose: 40 mg Hydralazine HCl (Apresoline) 10 mg IVPUSH Q2H PRN PRN Reason: Hypertension Insulin Human Regular 100 unit (/ Sodium Chloride) 100 mls @ 9.66 mls/hr IV TITRATE [facility]; Protocol Last Titration: 02/07/20 02:06 Dose: Infused Insulin Glargine (Lantus) 31 unit SUBCUT DAILY [facility] Last Admin: 02/07/20 11:04 Dose: 31 units Insulin Human Lispro (Humalog) 0 unit SUBCUT QIDACANDBED [facility]; Protocol Last Admin: 02/07/20 14:55 Dose: 4 units Methimazole (Methimazole) 10 mg PO DAILY [facility] Miscellaneous Information (Remove Patch) 1 ea TRDERM DAILY [facility] Last Admin: 02/07/20 08:08 Dose: Not Given Morphine Sulfate (Morphine) 1 mg IVPUSH Q6H PRN PRN Reason: Pain Last Admin: 02/07/20 08:00 Dose: 1 mg Nicotine (Habitrol) 21 mg TRDERM DAILY [facility] Last Admin: 02/07/20 08:00 Dose: 21 mg Rosuvastatin Calcium (Crestor) 10 mg PO BEDTIME [facility] Sodium Bicarbonate (Sodium Bicarbonate) 650 mg PO BID [facility] Last Admin: 02/07/20 11:07 Dose: 650 mg Discontinued Medications Apixaban (Eliquis) 5 mg PO DAILY [facility] Last Admin: 02/07/20 11:07 Dose: 5 mg Hydromorphone HCl (Dilaudid) 1 mg IVPUSH ONETIME ONE Stop: 02/06/20 17:26 Last Admin: 02/06/20 17:34 Dose: 1 mg Sodium Chloride (Normal Saline) 1,000 mls @ 999 mls/hr IV ASDIRECTED [facility] Lactated Ringer's (Ringers, Lactated) 1,000 mls @ 999 mls/hr IV .BOLUS [facility] Last Admin: 02/06/20 16:29 Dose: 999 mls/hr Insulin Human Regular 100 unit (/ Sodium Chloride) 100 mls @ 386.46 mls/hr IV TITRATE [facility]; Protocol Last Titration: 02/06/20 20:54 Dose: Infused Lactated Ringer's (Ringers, Lactated) 1,000 mls @ 500 mls/hr IV .BOLUS [facility] Insulin Human Regular 100 unit (/ Sodium Chloride) 100 mls @ 9.66 mls/hr IV TITRATE [facility]; Protocol Potassium Chloride/Sodium Chloride (1/2 Ns With 20 Meq Kcl) 1,000 mls @ 250 mls /hr IV ASDIRECTED [facility] Last Admin: 02/07/20 01:16 Dose: 150 mls/hr Sodium Chloride (Sodium Chloride 0.45%) 1,000 mls @ 999 mls/hr IV ASDIRECTED [facility] Stop: 02/07/20 20:46 Potassium Chloride/Dextrose/Sod Cl (D5 1/2 Ns W/ 20 Meq/L Kcl) 1,000 mls @ 150 mls/hr IV ASDIRECTED [facility] Last Admin: 02/06/20 21:25 Dose: 150 mls/hr Potassium Chloride/Sodium Chloride (1/2 Ns With 20 Meq Kcl) 1,000 mls @ 150 mls /hr IV ASDIRECTED [facility] Last Admin: 02/07/20 08:23 Dose: 150 mls/hr Ondansetron HCl (Zofran) 4 mg IVPUSH ONETIME ONE Stop: 02/06/20 17:26 Last Admin: 02/06/20 17:34 Dose: 4 mg - Exam General: Alert, Oriented HEENT: Pupils Equal, Mucous Membr. Moist/[place] Neck: Supple Lungs: Clear to Auscultation, Normal Respiratory Effort Cardiovascular: Irregular Rhythm GI/Abdominal Exam: Normal Bowel Sounds, Soft, Non-Tender, No Organomegaly, No Distention Extremities: Normal Inspection, Normal Range of Motion, Non-Tender, No Pedal Edema Skin: Warm, Dry, Intact Psy/Mental Status: Alert, Normal Affect, Normal Mood Sepsis Event Note - Evaluation Sepsis Screening Result: No Definite Risk - Focused Exam Vital Signs: Vital Signs Temp Pulse Resp BP BP Pulse Ox 02/07/20 12:42 98.2 F 18 143/87 H 96 02/07/20 12:00 97.8 F 148/96 H 02/07/20 11:07 147/95 H 02/07/20 11:05 91 147/95 H 02/07/20 07:41 97.3 F 18 140/101 H 98 Date Exam was Performed: 02/07/20 Time Exam was Performed: 16:40 - Problem List Review Problem List Initiated/Reviewed/Updated: Yes - My Orders Last 24 Hours: My Active Orders 02/07/20 09:21 Diclofenac Sodium [Voltaren 1% Gel] 0 gm TOP QID PRN 02/07/20 09:25 Consult to Diabetic Nurse Specialist [CONS] Routine 02/07/20 09:30 Blood Glucose Check, Bedside [RC] QIDACANDBED Furosemide [Lasix] 40 mg PO BID Sodium Bicarbonate 650 mg PO BID amLODIPine [Norvasc] 10 mg PO DAILY carvediloL [Coreg] 12.5 mg PO BID 02/07/20 09:45 Insulin Glarg,Human.Rec.Analog [LantUS] 31 unit SUBCUT DAILY 02/07/20 10:57 Admission Status [Patient Status] [ADT] Routine 02/07/20 11:00 Insulin Lispro [HumaLOG] See Protocol SUBCUT QIDACANDBED 02/07/20 21:00 Apixaban [Eliquis] 5 mg PO BID Rosuvastatin [Crestor] 10 mg PO BEDTIME 02/07/20 Lunch ADA Diabetic [[place] [employer] Diet] [DIET] 02/08/20 09:00 Cholecalciferol (Vitamin D3) [Vitamin D3] 25 mcg PO DAILY methIMAzole 10 mg PO DAILY - Plan Plan:: ASSESSMENT Day of Admission - Worsening glucose since 05/2019, acute worsening in past month - Very poor compliance with diet - Does not meet criteria for DKA, but does meet for HHS - PH> 7.3 (7.38) + Serum CO2 > 15 (27) + Mild/No ketonemia or ketonuria ( negative ketones in urine and ketones in blood 0.14, normal0.3) + normal gap - Compliant with CPAP every night - Smokes 1ppd for the past 40 years - Verbalized suicidal ideation with thoughts of shooting himself but wouldn't do it because he doesn't want to hurt the people that love him Hyperosmolar non-ketotic state in patient with type 2 diabetes mellitus Uncontrolled diabetes mellitus, HbA1c 9.6 Patient's blood sugar is back under good control. Plan * Diabetic education * Restart Lantus 31 mg daily * Start sliding scale insulin * Start pre-prandial insulin Acute vs acute on chronic kidney disease He appears to be back at baseline stage III chronic renal disease per his old records Plan * Continue to follow electrolytes and renal function in the morning Uncontrolled hypertension Patient is able to restart oral meds Plan * Restart home meds Heart failure Plan - [facility] protocol on conservative side regarding fluids - Strict I/Os - Daily weight Obstructive sleep apnea Plan - Continue home CPAP at pressure of 9 COPD (chronic obstructive pulmonary disease) Active smoker - Nicotine patch - Monitor oxygenation - Goal O2 > 88% Graves' disease - Hold home meds for tonight - If HHS not resolved by AM, transition to IV dosing Atrial fibrillation - Monitor rate - PRN metoprolol for rate >110 - Compression stockings for now Depression Adjustment disorder with mixed emotional features Noncompliance Inadequate social support - Psychiatry consult during admission - Patient advocate consult - Case management and social worker delinquency prevention consult Glaucoma - Continue home drops PROPHYLAXIS DVT- compression stockings GI- not indicated CODE STATUS: FULL CODE DISPOSITION: Patient will be admitted to the ICU insulin drip and HHS protocol. SOCIAL: Lives alone, when asked about next of kin patient states he is alone [facility]
[2020-02-07] MEDS ORDERED: Insulin Lispro 100 Units/ML 3 ML Vial SUBCUT ONE (17:10)
[2020-02-07] MEDS ORDERED: Acetaminophen/oxyCODONE 325-5 MG Tab PO PRN (17:31)
[2020-02-07] MEDS ORDERED: Albuterol 6.7 GM Inhaler INH PRN (17:43)
[2020-02-07] MEDS ORDERED: oxyCODONE 5 MG Tab PO PRN (19:28)
[2020-02-07] MEDS ORDERED: Ondansetron 4 MG/2 ML SDV IVPUSH PRN (19:59)
[2020-02-07] MEDS ORDERED: Latanoprost 0.005% Ophth Soln 2.5 ML Bottle EYEBOTH SCH (21:00)
[2020-02-07] MEDS ORDERED: Nortriptyline 10 MG Cap PO SCH (21:00)
[2020-02-07] MEDS ORDERED: Rosuvastatin 10 MG Tab PO SCH ×2 (21:00)
[2020-02-07] MEDS ORDERED: Mirtazapine 15 MG Tab PO SCH (21:00)
[2020-02-07] MEDS: Apixaban 5 MG Tab PO SCH (21:56)
[2020-02-08] MEDS: Furosemide 40 MG Tab PO SCH (08:34)
[2020-02-08] MEDS: Carvedilol 12.5 MG Tab PO SCH (08:35)
[2020-02-08] MEDS: Apixaban 5 MG Tab PO SCH (08:35)
[2020-02-08] MEDS: Sodium Bicarbonate 650 MG Tab PO SCH (08:36)
[2020-02-08] MEDS: Insulin Glarg,Human.Rec.Analog 100 Unit/ML SUBCUT SCH (08:36)
[2020-02-08] MEDS: Nicotine 21 MG/24 Hr Patch TRDERM SCH (08:36)
[2020-02-08] MEDS: Insulin Lispro 100 Units/ML 3 ML Vial SUBCUT SCH ×4 (08:37→12:21)
[2020-02-08] MEDS ORDERED: amLODIPine 10 MG Tab PO SCH (09:00)
[2020-02-08] MEDS ORDERED: Cholecalciferol (Vitamin D3) 25 MCG Tab PO SCH (09:00)
[2020-02-08] MEDS ORDERED: Methimazole 5 MG Tab PO SCH ×2 (09:00)
[2020-02-08] MEDS ORDERED: Potassium Chloride 10 MEQ Tab.ER PO SCH (09:00)
--- NOTE | 2020-02-08 12:23 | PCM.DCSUM1 ---
Discharge Summary - Hospital Course HPI Initial Comments: This is a 64 year old male with extensive past medical history including uncontrolled diabetes, heart failure, COPD among other things who comes to the ED after being referred from [place] for hyperglycemia. As per patient he has not been in usual state of health since May 2019 when he was asked to retire from work and lost his health insurance. Patient states that he used to be very compliant with medications which at the time were Tresiba and Trulicity and with that regimen his glucose ranged in the low 110's and his HbA1c was less than 6. However after he lost his insurance the [facility] changes his medications to Trulicity and Lantus and ever since then his glucose has been very hard to control He also states that his blood sugars have been "off" for approximately one month , he associates this to malaise, fatigue, loss of appetite, weakness, shortness of breath, nausea and vomiting. He verbalizes being very non-compliant with diet, eating "crappy food and sweets all the time" and eating only once a day. Today patient was in his telemedicine appointment when they measured his glucose to be around 600 for which he was sent to physical [facility] clinic who sent patient here. Brief History: Day of Admission. - Worsening glucose since 05/2019, acute worsening in past month. - Very poor compliance with diet. - Does not meet criteria for DKA, but does meet for HHS. - PH> 7.3 (7.38) + Serum CO2 > 15 (27 ) + Mild/No ketonemia or ketonuria (negative ketones in urine and ketones in blood 0.14, normal0.3) + normal gap. - Compliant with CPAP every night. - Smokes 1ppd for the past 40 years. - Verbalized suicidal ideation with thoughts of shooting himself but wouldn't do it because he doesn't want to hurt the people that love him Diagnosis: Stroke: No - Discharge Data Discharge Date: 02/08/20 Discharge Disposition: Home, Self-Care 01 Condition: Good - Referral to Home Health Primary Care Physician: Mell Flood MD - Patient Summary/Data Consults: Consultations 02/06/20 18:27 Respiratory Care Assess and Treatment [CONS] Routine 02/07/20 09:25 Consult to Diabetic Nurse Specialist [CONS] Routine Hospital Course: After blood sugars were controlled he was switched back to Lantus 31 units daily. He was started on prandial Humalog initially at 7 units but increase to 10 units daily secondary to poor blood sugar control. He was also covered with a sliding scale. A voucher for insulin was obtained from the [place] and [facility] - Patient Instructions Diet: Diabetic Diet Activity: As Tolerated Driving: May Drive Today Showering/Bathing: May Shower Other/Special Instructions: [facility] - Discharge Plan *PRESCRIPTION DRUG MONITORING PROGRAM REVIEWED*: No *COPY OF PRESCRIPTION DRUG MONITORING REPORT IN PATIENT [place]: No Prescriptions/Med Rec: Insulin Aspart 10 unit SQ TIDAC #1 vial Home Medications: Home Meds Carvedilol [Coreg] 12.5 mg PO BID #0 09/19/18 [Rx] Cholecalciferol (Vitamin D3) [Vitamin D3] 1,000 unit PO DAILY #30 tablet [Rx] Losartan [Cozaar] 100 mg PO DAILY tablet 05/23/19 [Rx] Dulaglutide [Trulicity] 1.5 mg SQ SA 06/26/19 [History] amLODIPine [Norvasc] 10 mg PO DAILY 06/26/19 [History] Furosemide [Lasix] 40 mg PO BID #60 tab 06/27/19 [Rx] Apixaban [Eliquis] 5 mg PO BID 11/27/19 [History] Diclofenac Sodium [Voltaren 1% Gel] 4 gram TOP QID PRN 11/27/19 [History] Insulin Glarg,Human.Rec.Analog [Lantus] 31 units SQ BEDTIME 11/27/19 [History] Multivitamin [Daily Multiple Vitamin] 1 tab PO DAILY 11/27/19 [History] Sodium Bicarbonate 650 mg PO BID 11/27/19 [History] Albuterol Sulfate [Proventil Hfa] 2 puff INH Q4H PRN 02/07/20 [History] Alogliptin Benzoate [Alogliptin] 25 mg PO DAILY 02/07/20 [History] Latanoprost [Xalatan 0.005% Ophth Soln] 1 drop EYEBOTH BEDTIME 02/07/20 [History ] Methimazole [Tapazole] 5 mg PO DAILY 02/07/20 [History] Mirtazapine 45 mg PO BEDTIME 02/07/20 [History] Nortriptyline 20 mg PO BEDTIME 02/07/20 [History] Potassium Chloride [Klor-Con 10] 10 meq PO DAILY 02/07/20 [History] Rosuvastatin Calcium 20 mg PO BEDTIME 02/07/20 [History] Insulin Aspart 10 unit SQ TIDAC #1 vial 02/08/20 [Rx] Insulin Glarg,Human.Rec.Analog [Lantus] 31 unit SUBCUT DAILY ml 02/08/20 [Rx] Insulin Lispro [HumaLOG] 0 unit SUBCUT QIDACANDBED vial 02/08/20 [Rx] Nicotine [Habitrol] 21 mg TRDERM DAILY patch 02/08/20 [Rx] Patient Handouts: Hyperglycemia, [id number], Heart Failure, Steps to Quit Smoking, Diabetes Mellitus and Nutrition, Adult Forms: ED Department Discharge Referrals: Mell Flood MD [Primary Care Provider] - - Discharge Summary/Plan Comment DC Time >30 min.: Yes Discharge Summary/Plan Comment: Discharged home in good condition. Lantus 31 units daily NovoLog 10 units with each meal. [facility] - General Info Date of Service: 02/08/20 Admission Dx/Problem (Free Text: Admission Diagnosis/Problem Admission Diagnosis/Problem Hyperosmolar non-ketotic state in patient with type 2 diabetes mellitus Subjective Update: Patient is doing well. He denies any chest pain or shortness of breath. Blood sugars are in the low 200s up to 250. Functional Status: Reports: Pain Controlled - Review of Systems General: Reports: No Symptoms HEENT: Reports: No Symptoms Pulmonary: Reports: No Symptoms Cardiovascular: Reports: No Symptoms Gastrointestinal: Reports: No Symptoms Musculoskeletal: Reports: No Symptoms Neurological: Reports: No Symptoms Psychiatric: Reports: No Symptoms - Patient Data Vitals - Most Recent: Last Vital Signs Temp 98 F 02/08/20 12:22 Pulse 92 02/08/20 12:22 Resp 18 02/08/20 12:22 BP 125/96 H 02/08/20 12:22 Pulse Ox 96 02/08/20 12:22 Orthostatic Blood Pressure [ 151/95 Standing] Orthostatic Blood Pressure [ 154/111 Sitting] Orthostatic Blood Pressure [ 155/96 Supine] Weight - Most Recent: 213 lb 6.519 oz I&O - Last 24 hours: Intake & Output 02/07/20 02/08/20 02/08/20 22:59 06:59 14:59 Intake Total 506 420 Output Total 600 Balance 506 -600 420 Lab Results - Last 24 hrs: Laboratory Results - last 24 hr 02/07/20 02/07/20 02/07/20 Range/Units 14:41 16:50 19:48 WBC (4.23-9.07) K/mm3 RBC (4.63-6.08) M/mm3 Hgb (13.7-17.5) gm/dl Hct (40.1-51.0) % MCV (79.0-92.2) fl MCH (25.7-32.2) pg MCHC (32.2-35.5) g/dl RDW Std Deviation (35.1-43.9) fL Plt Count (163-337) K/mm3 MPV (9.4-12.3) fl Neut % (Auto) (34.0-67.9) % Lymph % (Auto) (21.8-53.1) % [place] % (Auto) (5.3-12.2) % Eos % (Auto) (0.8-7.0) Baso % (Auto) (0.1-1.2) % Neut # (Auto) (1.78-5.38) K/mm3 Lymph # (Auto) (1.32-3.57) K/mm3 [place] # (Auto) (0.30-0.82) K/mm3 Eos # (Auto) (0.04-0.54) K/mm3 Baso # (Auto) (0.01-0.08) K/mm3 Sodium (136-145) mEq/L Potassium (3.5-5.1) mEq/L Chloride (98-107) mEq/L Carbon Dioxide (21-32) mEq/L Anion Gap (5-15) BUN (7-18) mg/dL Creatinine (0.7-1.3) mg/dL Est Cr Clr Drug Dosing mL/min Estimated GFR (MDRD) (>60) mL/min BUN/Creatinine Ratio (14-18) Glucose (80-115) mg/dL POC Glucose 248 H 202 H 121 H (80-115) mg/dL Calcium (8.5-10.1) mg/dL Magnesium (1.8-2.4) mg/dl Total Bilirubin (0.2-1.0) mg/dL AST (15-37) U/L ALT (16-63) U/L Alkaline Phosphatase (46-116) U/L Total Protein (6.4-8.2) g/dl Albumin (3.4-5.0) g/dl Globulin gm/dL Albumin/Globulin Ratio (1-2) 02/07/20 02/08/20 02/08/20 Range/Units 22:05 03:38 05:17 WBC 9.66 H (4.23-9.07) K/mm3 RBC 4.63 (4.63-6.08) M/mm3 Hgb 14.2 (13.7-17.5) gm/dl Hct 41.1 (40.1-51.0) % MCV 88.8 (79.0-92.2) fl MCH 30.7 (25.7-32.2) pg MCHC 34.5 (32.2-35.5) g/dl RDW Std Deviation 42.1 (35.1-43.9) fL Plt Count 145 L (163-337) K/mm3 MPV 11.6 (9.4-12.3) fl Neut % (Auto) 54.9 (34.0-67.9) % Lymph % (Auto) 29.8 (21.8-53.1) % [place] % (Auto) 10.5 (5.3-12.2) % Eos % (Auto) 4.2 (0.8-7.0) Baso % (Auto) 0.6 (0.1-1.2) % Neut # (Auto) 5.30 (1.78-5.38) K/mm3 Lymph # (Auto) 2.88 (1.32-3.57) K/mm3 [place] # (Auto) 1.01 H (0.30-0.82) K/mm3 Eos # (Auto) 0.41 (0.04-0.54) K/mm3 Baso # (Auto) 0.06 (0.01-0.08) K/mm3 Sodium (136-145) mEq/L Potassium (3.5-5.1) mEq/L Chloride (98-107) mEq/L Carbon Dioxide (21-32) mEq/L Anion Gap (5-15) BUN (7-18) mg/dL Creatinine (0.7-1.3) mg/dL Est Cr Clr Drug Dosing mL/min Estimated GFR (MDRD) (>60) mL/min BUN/Creatinine Ratio (14-18) Glucose (80-115) mg/dL POC Glucose 166 H 200 H (80-115) mg/dL Calcium (8.5-10.1) mg/dL Magnesium (1.8-2.4) mg/dl Total Bilirubin (0.2-1.0) mg/dL AST (15-37) U/L ALT (16-63) U/L Alkaline Phosphatase (46-116) U/L Total Protein (6.4-8.2) g/dl Albumin (3.4-5.0) g/dl Globulin gm/dL Albumin/Globulin Ratio (1-2) 02/08/20 02/08/20 02/08/20 Range/Units 05:17 08:45 11:07 WBC (4.23-9.07) K/mm3 RBC (4.63-6.08) M/mm3 Hgb (13.7-17.5) gm/dl Hct (40.1-51.0) % MCV (79.0-92.2) fl MCH (25.7-32.2) pg MCHC (32.2-35.5) g/dl RDW Std Deviation (35.1-43.9) fL Plt Count (163-337) K/mm3 MPV (9.4-12.3) fl Neut % (Auto) (34.0-67.9) % Lymph % (Auto) (21.8-53.1) % [place] % (Auto) (5.3-12.2) % Eos % (Auto) (0.8-7.0) Baso % (Auto) (0.1-1.2) % Neut # (Auto) (1.78-5.38) K/mm3 Lymph # (Auto) (1.32-3.57) K/mm3 [place] # (Auto) (0.30-0.82) K/mm3 Eos # (Auto) (0.04-0.54) K/mm3 Baso # (Auto) (0.01-0.08) K/mm3 Sodium 146 H (136-145) mEq/L Potassium 4.0 (3.5-5.1) mEq/L Chloride 107 (98-107) mEq/L Carbon Dioxide 29 (21-32) mEq/L Anion Gap 14.0 (5-15) BUN 33 H (7-18) mg/dL Creatinine 2.1 H (0.7-1.3) mg/dL Est Cr Clr Drug Dosing 37.66 mL/min Estimated GFR (MDRD) 32 (>60) mL/min BUN/Creatinine Ratio 15.7 (14-18) Glucose 221 H (80-115) mg/dL POC Glucose 220 H 257 H (80-115) mg/dL Calcium 9.0 (8.5-10.1) mg/dL Magnesium 2.1 (1.8-2.4) mg/dl Total Bilirubin 0.3 (0.2-1.0) mg/dL AST 18 (15-37) U/L ALT 30 (16-63) U/L Alkaline Phosphatase 106 (46-116) U/L Total Protein 6.7 (6.4-8.2) g/dl Albumin 3.3 L (3.4-5.0) g/dl Globulin 3.4 gm/dL Albumin/Globulin Ratio 1.0 (1-2) Med Orders - Current: Current Medications Albuterol (Proventil Hfa) 0 gm INH Q4H PRN PRN Reason: Shortness of Breath Alogliptin Benzoate (Alogliptin) 25 mg PO DAILY [facility] Last Admin: 02/08/20 08:35 Dose: 25 mg Amlodipine Besylate (Norvasc) 10 mg PO DAILY [facility] Last Admin: 02/08/20 08:35 Dose: 10 mg Apixaban (Eliquis) 5 mg PO BID [facility] Last Admin: 02/08/20 08:35 Dose: 5 mg Carvedilol (Coreg) 12.5 mg PO BID [facility] Last Admin: 02/08/20 08:35 Dose: 12.5 mg Cholecalciferol (Vitamin D3) 25 mcg PO DAILY [facility] Last Admin: 02/08/20 08:36 Dose: 25 mcg Diclofenac Sodium (Voltaren 1% Gel) 0 gm TOP QID PRN PRN Reason: Pain Docusate Sodium (Colace) 100 mg PO BID PRN PRN Reason: Constipation Last Admin: 02/07/20 00:10 Dose: 100 mg Furosemide (Lasix) 40 mg PO BID [facility] Last Admin: 02/08/20 08:34 Dose: 40 mg Hydralazine HCl (Apresoline) 10 mg IVPUSH Q2H PRN PRN Reason: Hypertension Insulin Glargine (Lantus) 31 unit SUBCUT DAILY [facility] Last Admin: 02/08/20 08:36 Dose: 31 units Insulin Human Lispro (Humalog) 0 unit SUBCUT QIDACANDBED [facility]; Protocol Last Admin: 02/08/20 11:12 Dose: 6 units Insulin Human Lispro (Humalog) 7 unit SUBCUT TIDAC [facility] Last Admin: 02/08/20 12:21 Dose: 7 units Latanoprost (Xalatan 0.005% Ophth Soln) 0 ml EYEBOTH BEDTIME [facility] Last Admin: 02/07/20 22:01 Dose: 1 drop Methimazole (Methimazole) 5 mg PO DAILY [facility] Last Admin: 02/08/20 08:35 Dose: 5 mg Mirtazapine (Remeron) 45 mg PO BEDTIME [facility] Last Admin: 02/07/20 21:57 Dose: 45 mg Miscellaneous Information (Remove Patch) 1 ea TRDERM DAILY [facility] Last Admin: 02/08/20 08:49 Dose: 1 ea Morphine Sulfate (Morphine) 1 mg IVPUSH Q6H PRN PRN Reason: Pain Last Admin: 02/07/20 08:00 Dose: 1 mg Nicotine (Habitrol) 21 mg TRDERM DAILY [facility] Last Admin: 02/08/20 08:36 Dose: 21 mg Nortriptyline HCl (Nortriptyline) 20 mg PO BEDTIME [facility] Last Admin: 02/07/20 21:55 Dose: 20 mg Ondansetron HCl (Zofran) 4 mg IVPUSH Q4H PRN PRN Reason: Nausea/Vomiting Last Admin: 02/07/20 20:09 Dose: 4 mg Oxycodone HCl (Oxycodone) 5 mg PO Q6H PRN PRN Reason: Pain Potassium Chloride (Klor-Con 10) 10 meq PO DAILY [facility] Last Admin: 02/08/20 08:34 Dose: 10 meq Rosuvastatin Calcium (Crestor) 20 mg PO BEDTIME [facility] Last Admin: 02/07/20 22:00 Dose: 20 mg Sodium Bicarbonate (Sodium Bicarbonate) 650 mg PO BID [facility] Last Admin: 02/08/20 08:36 Dose: 650 mg Discontinued Medications Amlodipine Besylate (Norvasc) 10 mg PO DAILY [facility] Last Admin: 02/07/20 11:07 Dose: 10 mg Apixaban (Eliquis) 5 mg PO DAILY [facility] Last Admin: 02/07/20 11:07 Dose: 5 mg Hydromorphone HCl (Dilaudid) 1 mg IVPUSH ONETIME ONE Stop: 02/06/20 17:26 Last Admin: 02/06/20 17:34 Dose: 1 mg Sodium Chloride (Normal Saline) 1,000 mls @ 999 mls/hr IV ASDIRECTED [facility] Lactated Ringer's (Ringers, Lactated) 1,000 mls @ 999 mls/hr IV .BOLUS [facility] Last Admin: 02/06/20 16:29 Dose: 999 mls/hr Insulin Human Regular 100 unit (/ Sodium Chloride) 100 mls @ 386.46 mls/hr IV TITRATE [facility]; Protocol Last Titration: 02/06/20 20:54 Dose: Infused Lactated Ringer's (Ringers, Lactated) 1,000 mls @ 500 mls/hr IV .BOLUS [facility] Insulin Human Regular 100 unit (/ Sodium Chloride) 100 mls @ 9.66 mls/hr IV TITRATE [facility]; Protocol Potassium Chloride/Sodium Chloride (1/2 Ns With 20 Meq Kcl) 1,000 mls @ 250 mls /hr IV ASDIRECTED [facility] Last Admin: 02/07/20 01:16 Dose: 150 mls/hr Sodium Chloride (Sodium Chloride 0.45%) 1,000 mls @ 999 mls/hr IV ASDIRECTED [facility] Stop: 02/07/20 20:46 Insulin Human Regular 100 unit (/ Sodium Chloride) 100 mls @ 9.66 mls/hr IV TITRATE [facility]; Protocol Last Titration: 02/07/20 02:06 Dose: Infused Potassium Chloride/Dextrose/Sod Cl (D5 1/2 Ns W/ 20 Meq/L Kcl) 1,000 mls @ 150 mls/hr IV ASDIRECTED [facility] Last Admin: 02/06/20 21:25 Dose: 150 mls/hr Potassium Chloride/Sodium Chloride (1/2 Ns With 20 Meq Kcl) 1,000 mls @ 150 mls /hr IV ASDIRECTED [facility] Last Admin: 02/07/20 08:23 Dose: 150 mls/hr Insulin Human Lispro (Humalog) 10 unit SUBCUT ONETIME ONE Stop: 02/07/20 17:11 Last Admin: 02/07/20 17:32 Dose: Not Given Methimazole (Methimazole) 10 mg PO DAILY [facility] Ondansetron HCl (Zofran) 4 mg IVPUSH ONETIME ONE Stop: 02/06/20 17:26 Last Admin: 02/06/20 17:34 Dose: 4 mg Oxycodone/Acetaminophen (Percocet 325-5 Mg) 1 tab PO Q6H PRN PRN Reason: Pain Last Admin: 02/07/20 17:51 Dose: 1 tab Rosuvastatin Calcium (Crestor) 10 mg PO BEDTIME [facility] - Exam General: Reports: Alert, Oriented HEENT: Reports: Pupils Equal, Mucous Membr. Moist/[place] Neck: Reports: Supple Lungs: Reports: Clear to Auscultation, Normal Respiratory Effort Cardiovascular: Reports: Regular Rate, Regular Rhythm GI/Abdominal Exam: Normal Bowel Sounds, Soft, Non-Tender, No Organomegaly, No Distention, No Abnormal Bruit Back Exam: Reports: Normal Inspection Extremities: Normal Inspection, Normal Range of Motion, Non-Tender, No Pedal Edema, Normal Capillary Refill Skin: Reports: Warm, Dry, Intact Neurological: Reports: No New Focal Deficit Psy/Mental Status: Reports: Alert, Normal Affect, Normal Mood
== END 2020-02-08 13:45 | disposition home or self-care (01) | DRG 638 ==
LOC: JD.ED 15:31 → JD.ICU 19:59
PROVIDERS: ADMIT Internal Medicine; ATTEND Family Medicine
DX: E11.00 Type 2 diabetes mellitus with hyperosmolarity without nonketotic hyperglycemic-hyperosmolar coma (NKHHC) (principal); N17.9 Acute kidney failure, unspecified; E11.65 Type 2 diabetes mellitus with hyperglycemia; I13.0 Hypertensive heart and chronic kidney disease with heart failure and stage 1 through stage 4 chronic kidney disease, or unspecified chronic kidney disease; H54.7 Unspecified visual loss; H91.90 Unspecified hearing loss, unspecified ear; G47.33 Obstructive sleep apnea (adult) (pediatric); F17.210 Nicotine dependence, cigarettes, uncomplicated; E05.00 Thyrotoxicosis with diffuse goiter without thyrotoxic crisis or storm; I48.91 Unspecified atrial fibrillation; F43.20 Adjustment disorder, unspecified; Z91.14 Patient's other noncompliance with medication regimen; I50.9 Heart failure, unspecified; N18.9 Chronic kidney disease, unspecified; E11.22 Type 2 diabetes mellitus with diabetic chronic kidney disease; Z79.4 Long term (current) use of insulin; E78.00 Pure hypercholesterolemia, unspecified; J44.9 Chronic obstructive pulmonary disease, unspecified; G47.30 Sleep apnea, unspecified; K21.9 Gastro-esophageal reflux disease without esophagitis; E11.21 Type 2 diabetes mellitus with diabetic nephropathy; G43.909 Migraine, unspecified, not intractable, without status migrainosus; M19.90 Unspecified osteoarthritis, unspecified site; Z85.46 Personal history of malignant neoplasm of prostate; F32.9 Major depressive disorder, single episode, unspecified; F41.9 Anxiety disorder, unspecified; E66.9 Obesity, unspecified; I25.2 Old myocardial infarction; Z88.0 Allergy status to penicillin; Z88.2 Allergy status to sulfonamides; Z79.01 Long term (current) use of anticoagulants; Z79.899 Other long term (current) drug therapy
CPT/HCPCS: 36415; 36600; 71045; 80053; 81001; 82009; 82803; 82962 ×2; 83036; 83605; 83735; 83880; 83930; 84100; 84484; 85025; 85610; 85652; 85730; 86140; 93005 ×2; 96361; 96374; 96375; 99285; J1170; J1815; J2405; J7050; J7120; 51702; 80048; 80061; 93010; 94660; 99222; 99232; 99239; A9270-GY; J2270; J3480

== ENCOUNTER 2020-08-06 16:32 | Emergency (ER) | payer MEDICAID, OTHER ==
[2020-08-06] MEDS ORDERED: Sodium Chloride 0.9% 10 ML Syringe FLUSH PRN (17:29)
[2020-08-06] MEDS ORDERED: Labetalol 100 MG/20 ML MDV IVPUSH ONE ×2 (17:31→18:43)
[2020-08-06] MEDS ORDERED: Acetaminophen 325 MG Tab PO ONE (17:52)
--- NOTE | 2020-08-06 17:57 | EDM.PDOC ---
ED HPI GENERAL MEDICAL PROBLEM - General Chief Complaint: Cardiovascular Problem Stated Complaint: HIGH BP Time Seen by Provider: 08/06/20 16:46 Source of Information: Reports: Patient, RN Notes Reviewed - History of Present Illness INITIAL COMMENTS - FREE TEXT/NARRATIVE: 64 yr old male with elevated BP for about the past week. Has had readings as high as about 200 systolic. Has also felt mildly short of breath and has moderate Brito. Hx of Htn, renal insufficiency, a fib., CHF. He states he has not been taking one of his medsh(hydaulazine) as often as he should. He also has not been taking his norvasc for the last few days. No chest pain, cough, fever or chills. Headache Pain Score (Numeric/FACES): 6 - Related Data Allergies Allergy/AdvReac Type Severity Reaction Status Date / Time Penicillins Allergy Severe Hives Verified 08/06/20 16:45 Sulfa (Sulfonamide Allergy Severe Hives Verified 08/06/20 16:45 Antibiotics) Home Meds: Home Meds carvediloL [Coreg] 12.5 mg PO BID #0 09/19/18 [Rx] Losartan [Cozaar] 100 mg PO DAILY tablet 05/23/19 [Rx] Dulaglutide [Trulicity] 1.5 mg SQ SA 06/26/19 [History] amLODIPine [Norvasc] 10 mg PO DAILY 06/26/19 [History] Furosemide [Lasix] 40 mg PO BID #60 tab 06/27/19 [Rx] Apixaban [Eliquis] 5 mg PO BID 11/27/19 [History] Diclofenac Sodium [Voltaren 1% Gel] 4 gram TOP QID PRN 11/27/19 [History] Multivitamin [Daily Multiple Vitamin] 1 tab PO DAILY 11/27/19 [History] Sodium Bicarbonate 650 mg PO BID 11/27/19 [History] Albuterol Sulfate [Proventil Hfa] 2 puff INH Q4H PRN 02/07/20 [History] Alogliptin Benzoate [Alogliptin] 25 mg PO DAILY 02/07/20 [History] Latanoprost [Xalatan 0.005% Ophth Soln] 1 drop EYEBOTH BEDTIME 02/07/20 [History ] Mirtazapine 45 mg PO BEDTIME 02/07/20 [History] Nortriptyline 20 mg PO BEDTIME 02/07/20 [History] Rosuvastatin Calcium 20 mg PO BEDTIME 02/07/20 [History] methIMAzole [Tapazole] 5 mg PO DAILY 02/07/20 [History] Insulin Lispro [HumaLOG] 0 unit SUBCUT QIDACANDBED vial 02/08/20 [Rx] Nicotine [Habitrol] 21 mg TRDERM DAILY patch 02/08/20 [Rx] Insulin Glarg,Human.Rec.Analog [Lantus] 44 unit SUBCUT BEDTIME 08/06/20 [History] hydrALAZINE [Apresoline] 25 mg PO BID 08/06/20 [History] Past Medical History HEENT History: Reports: Hard of Hearing, Impaired Vision, Sinusitis Other HEENT History: wears eyeglasses for driving only Cardiovascular History: Reports: Heart Failure, High Cholesterol, Hypertension, SOB on Exertion Respiratory History: Reports: Bronchitis, Recurrent, COPD, Sleep Apnea Other Respiratory History: hypoxemic respiratory failure Gastrointestinal History: Reports: Diverticulosis, GERD Genitourinary History: Reports: Chronic Renal Insuffiency, Diabetic Nephropathy Other Genitourinary History: Hx of prostate cancer. MANAGER MONITORING History: Reports: None Musculoskeletal History: Reports: Arthritis Neurological History: Reports: Migraines Psychiatric History: Reports: Anxiety, Depression Endocrine/Metabolic History: Reports: Diabetes, Type II, Obesity/BMI 30+ Other Endocrine/Metabolic History: graves Hematologic History: Reports: None Immunologic History: Reports: None Oncologic (Cancer) History: Reports: Prostate Dermatologic History: Reports: None - Infectious Disease History Infectious Disease History: Reports: None - Past Surgical History Male Surgical History: Reports: None Social & Family History - Family History Family Medical History: Noncontributory Cardiac: Reports: Heart Failure Respiratory: Reports: Asthma - Tobacco Use Smoking Status *Q: Current Every Day Smoker Years of Tobacco use: 40 Packs/Tins Daily: 2 - Caffeine Use Caffeine Use: Reports: Coffee - Recreational Drug Use Recreational Drug Use: Yes Recreational Drug Type: Reports: Marijuana/Hashish - Living Situation & Occupation Living situation: Reports: , with Spouse 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 Denies: Trouble Speaking, Difficulty Walking, Weakness ED EXAM, GENERAL - Physical Exam Exam: See Below General Appearance: Alert, No Apparent Distress Head: Atraumatic. No: Facial Swelling Neck: Supple, Other (No JVD) Respiratory/Chest: No Respiratory Distress, Lungs Clear, Normal Breath Sounds Cardiovascular: Tachycardia GI/Abdominal: Soft, Non-Tender. No: Guarding Back Exam: No: CVA Tenderness (L), CVA Tenderness (R) Extremities: Normal Inspection Neurological: Alert, Oriented, No Motor/Sensory Deficits Skin Exam: Warm, Dry, Normal Color EKG INTERPRETATION EKG Date: 08/06/20 Rhythm: A-Fib Rate (Beats/Min): 126 P-Wave: Absent QRS: Normal ST-T: Other (T wave inversions inf. leads.) Course - Vital Signs Last Recorded V/S: Last Vital Signs Temp 98.2 F 08/06/20 16:41 Pulse 116 H 08/06/20 16:41 Resp 20 08/06/20 16:41 BP 153/123 H 08/06/20 19:15 Pulse Ox 97 08/06/20 16:41 - Orders/Labs/Meds Orders: Active Orders 24 hr Category Date Time Status Peripheral IV Insertion Adult [OM.PC] Stat Oth 08/06/20 17:29 Ordered Labs: Laboratory Tests 08/06/20 08/06/20 Range/Units 17:53 17:53 WBC 10.71 H (4.23-9.07) K/mm3 RBC 4.76 (4.63-6.08) M/mm3 Hgb 15.0 (13.7-17.5) gm/dl Hct 44.6 (40.1-51.0) % MCV 93.7 H D (79.0-92.2) fl MCH 31.5 (25.7-32.2) pg MCHC 33.6 (32.2-35.5) g/dl RDW Std Deviation 50.0 H (35.1-43.9) fL Plt Count 159 L (163-337) K/mm3 MPV 10.8 (9.4-12.3) fl Neut % (Auto) 63.8 (34.0-67.9) % Lymph % (Auto) 21.1 L (21.8-53.1) % Marshall % (Auto) 10.0 (5.3-12.2) % Eos % (Auto) 3.8 (0.8-7.0) Baso % (Auto) 0.7 (0.1-1.2) % Neut # (Auto) 6.84 H (1.78-5.38) K/mm3 Lymph # (Auto) 2.26 (1.32-3.57) K/mm3 Marshall # (Auto) 1.07 H (0.30-0.82) K/mm3 Eos # (Auto) 0.41 (0.04-0.54) K/mm3 Baso # (Auto) 0.07 (0.01-0.08) K/mm3 Manual Slide Review Normal smear Sodium 139 (136-145) mEq/L Potassium 4.5 (3.5-5.1) mEq/L Chloride 101 (98-107) mEq/L Carbon Dioxide 29 (21-32) mEq/L Anion Gap 13.5 (5-15) BUN 28 H (7-18) mg/dL Creatinine 2.1 H (0.7-1.3) mg/dL Est Cr Clr Drug Dosing 37.66 mL/min Estimated GFR (MDRD) 32 (>60) mL/min BUN/Creatinine Ratio 13.3 L (14-18) Glucose 304 H (80-115) mg/dL Calcium 9.6 (8.5-10.1) mg/dL Total Bilirubin 0.4 (0.2-1.0) mg/dL AST 25 (15-37) U/L ALT 33 (16-63) U/L Alkaline Phosphatase 116 (46-116) U/L Troponin I 0.069 H* (0.00-0.056) ng/mL Total Protein 7.6 (6.4-8.2) g/dl Albumin 3.6 (3.4-5.0) g/dl Globulin 4.0 gm/dL Albumin/Globulin Ratio 0.9 L (1-2) Meds: Medications Discontinued Medications Generic Name Dose Route Start Last Admin Trade Name Freq PRN Reason Stop Dose Admin Acetaminophen 975 mg 08/06/20 17:52 08/06/20 18:06 Tylenol PO 08/06/20 17:53 975 mg NOW ONE Administration Amlodipine Besylate 10 mg 08/06/20 19:05 08/06/20 19:15 Norvasc PO 08/06/20 19:06 10 mg ONETIME ONE Administration Labetalol HCl 20 mg 08/06/20 17:31 08/06/20 17:55 Normodyne IVPUSH 08/06/20 17:32 20 mg ONETIME ONE Administration Protocol Labetalol HCl 20 mg 08/06/20 18:43 08/06/20 18:55 Normodyne IVPUSH 08/06/20 18:44 20 mg ONETIME ONE Administration Protocol Sodium Chloride 10 ml 08/06/20 17:29 08/06/20 18:00 Saline Flush FLUSH 10 ml ASDIRECTED PRN Administration Keep Vein Open - Re-Assessments/Exams Free Text/Narrative Re-Assessment/Exam: 08/06/20 19:12 have given labetalol 20 mg IV times 2. BP down to 151/101, heart rate down to 90. He is resting comfortablly. Trop has come back elevated at .069. Creatnine 2.1 which is where is was at last ED visit about 5 to 6 months ago. Will give him a dose of norvasc now which he has not taken for several days. Will plan to draw a repeat 3 hr trop. 19:25. Pt strongly wants to go home, does not want to stay for repeat trop. He has not been having chest pain. Has not been taking all of his meds. Will now take his meds as previously prescribed. Will return if sx worsening in any way. Departure - Departure Time of Disposition: 19:29 Disposition: Home, Self-Care 01 Condition: Fair Clinical Impression: Hypertension Qualifiers: Hypertension type: essential hypertension Qualified Code(s): I10 - Essential (primary) hypertension Instructions: Hypertension, Adult Referrals: Mell Flood MD [Primary Care Provider] - Forms: ED Department Discharge Additional Instructions: Restart the norvasc in addition to the other meds previous prescribed. Avoid high salt foods. Take the apresoline (hydralazine) 25 mg later this evening and than start taking that twice daily. Watch your blood pressure readings carefully and make sure they trend down to more normal levels. Return to ED as needed if symptoms worsen in any way. Follow up clinic in about 5 to 7 days for recheck, call for appt. Sepsis Event Note (ED) - Evaluation Sepsis Screening Result: No Definite Risk - My Orders Last 24 Hours: My Active Orders 08/06/20 17:29 Peripheral IV Insertion Adult [OM.PC] Stat - Assessment/Plan Last 24 Hours: My Active Orders 08/06/20 17:29 Peripheral IV Insertion Adult [OM.PC] Stat
--- NOTE | 2020-08-06 18:35 | CR ---
Chest: 2 views of the chest were obtained. Comparison: Prior chest x-ray of 04/06/19. Heart size and mediastinum are within normal limits. Chronic blunting of the lateral left costophrenic angle is seen with slight adjacent pleural thickening within the inferior lateral left chest wall. Lungs show no acute parenchymal change. Mild scattered disc space narrowing and endplate spurring is noted within the spine. Impression: 1. Stable findings as noted above. 2. Nothing acute is appreciated on 2 view chest x-ray. Diagnostic code #2 This report was dictated in MDT
[2020-08-06] MEDS ORDERED: amLODIPine 5 MG Tab PO ONE (19:05)
== END 2020-08-06 19:45 | disposition home or self-care (01) ==
LOC: JD.ED 16:32
DX: I13.0 Hypertensive heart and chronic kidney disease with heart failure and stage 1 through stage 4 chronic kidney disease, or unspecified chronic kidney disease (principal); I50.9 Heart failure, unspecified; N18.9 Chronic kidney disease, unspecified; E11.22 Type 2 diabetes mellitus with diabetic chronic kidney disease; E78.00 Pure hypercholesterolemia, unspecified; J44.9 Chronic obstructive pulmonary disease, unspecified; K21.9 Gastro-esophageal reflux disease without esophagitis; F41.9 Anxiety disorder, unspecified; F32.9 Major depressive disorder, single episode, unspecified; E66.9 Obesity, unspecified; Z68.33 Body mass index [BMI] 33.0-33.9, adult; E11.21 Type 2 diabetes mellitus with diabetic nephropathy; F17.210 Nicotine dependence, cigarettes, uncomplicated; Z88.0 Allergy status to penicillin; Z88.2 Allergy status to sulfonamides; Z79.899 Other long term (current) drug therapy; Z79.01 Long term (current) use of anticoagulants; Z79.4 Long term (current) use of insulin
CPT/HCPCS: 36415; 71046; 80053; 84484; 85025; 93005; 96374; 96376; 99285; A9270; J3490; 93010; 99283

== ENCOUNTER 2020-08-20 08:06 | Inpatient (IN) | payer OTHER ==
[2020-08-20] MEDS ORDERED: Acetaminophen 325 MG Tab PO ONE (09:23)
[2020-08-20] MEDS: Sodium Chloride 0.9% 10 ML Syringe FLUSH PRN (09:30)
--- NOTE | 2020-08-20 10:44 | EDM.PDOC ---
ED HPI GENERAL MEDICAL PROBLEM - General Chief Complaint: Respiratory Problem Stated Complaint: SOB/HEADACHE/CHEST PAIN Time Seen by Provider: 08/20/20 08:28 Source of Information: Reports: Patient, Family History Limitations: Reports: No Limitations - History of Present Illness INITIAL COMMENTS - FREE TEXT/NARRATIVE: The patient presents with chest pain and shortness of breath. He also has a fever and cough. He has a history of CAD and he was here for CP rule out about 2 weeks ago. His troponin was elevated at that time. He did not want to stay and he left. He does not think he has been around anyone with COVID 19. He has a history of COPD, CHF, multiple pneumonias and bronchitis. He quit smoking 2 weeks ago. He has known renal insufficiency. He has been sick for a few days. Onset: Gradual Duration: Day(s): Location: Reports: Chest Quality: Reports: Other (Tightness) Severity: Mild Improves with: Reports: None Worsens with: Reports: None Associated Symptoms: Reports: Chest Pain, Cough, Fever/Chills, Shortness of Breath. Denies: Headaches, Nausea/Vomiting Chest Pain Score (Numeric/FACES): 9 - Related Data Allergies Allergy/AdvReac Type Severity Reaction Status Date / Time Penicillins Allergy Severe Hives Verified 08/20/20 08:23 Sulfa (Sulfonamide Allergy Severe Hives Verified 08/20/20 08:23 Antibiotics) Home Meds: Home Meds carvediloL [Coreg] 12.5 mg PO BID #0 09/19/18 [Rx] Losartan [Cozaar] 100 mg PO DAILY tablet 05/23/19 [Rx] Dulaglutide [Trulicity] 1.5 mg SQ SA 06/26/19 [History] amLODIPine [Norvasc] 10 mg PO DAILY 06/26/19 [History] Furosemide [Lasix] 40 mg PO BID #60 tab 06/27/19 [Rx] Apixaban [Eliquis] 5 mg PO BID 11/27/19 [History] Diclofenac Sodium [Voltaren 1% Gel] 4 gram TOP QID PRN 11/27/19 [History] Multivitamin [Daily Multiple Vitamin] 1 tab PO DAILY 11/27/19 [History] Sodium Bicarbonate 650 mg PO BID 11/27/19 [History] Albuterol Sulfate [Proventil Hfa] 2 puff INH Q4H PRN 02/07/20 [History] Alogliptin Benzoate [Alogliptin] 25 mg PO DAILY 02/07/20 [History] Latanoprost [Xalatan 0.005% Ophth Soln] 1 drop EYEBOTH BEDTIME 02/07/20 [History] Mirtazapine 45 mg PO BEDTIME 02/07/20 [History] Nortriptyline 20 mg PO BEDTIME 02/07/20 [History] Rosuvastatin Calcium 20 mg PO BEDTIME 02/07/20 [History] methIMAzole [Tapazole] 5 mg PO DAILY 02/07/20 [History] Insulin Lispro [HumaLOG] 0 unit SUBCUT QIDACANDBED vial 02/08/20 [Rx] Nicotine [Habitrol] 21 mg TRDERM DAILY patch 02/08/20 [Rx] Insulin Glarg,Human.Rec.Analog [Lantus] 44 unit SUBCUT BEDTIME 08/06/20 [History] hydrALAZINE [Apresoline] 25 mg PO BID 08/06/20 [History] Past Medical History HEENT History: Reports: Hard of Hearing, Impaired Vision, Sinusitis Other HEENT History: wears eyeglasses for driving only Cardiovascular History: Reports: Afib, Heart Failure, High Cholesterol, Hypertension, SOB on Exertion Respiratory History: Reports: Bronchitis, Recurrent, COPD, Pneumonia, Recurrent, Sleep Apnea Other Respiratory History: hypoxemic respiratory failure Gastrointestinal History: Reports: Diverticulosis, GERD Genitourinary History: Reports: Chronic Renal Insuffiency, Diabetic Nephropathy Other Genitourinary History: Hx of prostate cancer. DEPUTY SHERIFF/INVESTIGATOR History: Reports: None Musculoskeletal History: Reports: Arthritis Neurological History: Reports: Migraines Psychiatric History: Reports: Anxiety, Depression Endocrine/Metabolic History: Reports: Diabetes, Type II, Obesity/BMI 30+ Other Endocrine/Metabolic History: graves Hematologic History: Reports: None Immunologic History: Reports: None Oncologic (Cancer) History: Reports: Prostate Dermatologic History: Reports: None - Infectious Disease History Infectious Disease History: Reports: Chicken Pox, Measles, Mumps, Novel Coronavirus - Past Surgical History GI Surgical History: Reports: Appendectomy Social & Family History - Family History Family Medical History: Noncontributory Cardiac: Reports: Heart Failure Respiratory: Reports: Asthma - Tobacco Use Smoking Status *Q: Former Smoker Years of Tobacco use: 49 Packs/Tins Daily: 2 Used Tobacco, but Quit: Yes Month/Year Tobacco Last Used: Jul 2020 - Caffeine Use Caffeine Use: Reports: Coffee - Recreational Drug Use Recreational Drug Use: No - Living Situation & Occupation Living situation: Reports: , with Spouse 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) ED ROS GENERAL - Review of Systems Review Of Systems: See Below Constitutional: Reports: Fever, Chills HEENT: Reports: No Symptoms Respiratory: Reports: Shortness of Breath, Cough Cardiovascular: Reports: No Symptoms Endocrine: Reports: No Symptoms GI/Abdominal: Reports: No Symptoms : Reports: No Symptoms Musculoskeletal: Reports: No Symptoms Skin: Reports: No Symptoms Neurological: Reports: No Symptoms ED EXAM, GENERAL - Physical Exam Exam: See Below Exam Limited By: No Limitations General Appearance: Alert, No Apparent Distress Ears: Normal External Exam Nose: Normal Inspection Head: Atraumatic, Normocephalic Neck: Normal Inspection Respiratory/Chest: No Respiratory Distress, Decreased Breath Sounds Cardiovascular: Regular Rate, Rhythm, No Edema, No Murmur GI/Abdominal: Soft, Non-Tender, No Organomegaly, No Mass Rectal (Males) Exam: Normal Exam Back Exam: Normal Inspection Extremities: Normal Inspection EKG INTERPRETATION EKG Date: 08/20/20 Time: 08:19 Rhythm: A-Fib Rate (Beats/Min): 117 Covel: Normal QRS: Normal ST-T: Normal QT: Normal Course - Vital Signs Last Recorded V/S: Last Vital Signs Temp 99.8 F 08/20/20 08:10 Pulse 108 H 08/20/20 08:10 Resp 32 H 08/20/20 08:10 BP 201/100 H 08/20/20 08:10 Pulse Ox 81 L 08/20/20 08:10 - Orders/Labs/Meds Orders: Active Orders 24 hr Category Date Time Status Cardiac Monitoring [RC] . DIRECTED Care 08/20/20 08:50 Active EKG Documentation Completion [RC] STAT Care 08/20/20 08:51 Active Oxygen Therapy [RC] PRN Care 08/20/20 08:50 Active Peripheral IV Care [RC] . DIRECTED Care 08/20/20 08:51 Active Chest 1V Frontal [CR] Stat Exams 08/20/20 08:51 Taken CULTURE BLOOD [BC] Stat Lab 08/20/20 09:12 Received CULTURE BLOOD [BC] Stat Lab 08/20/20 09:20 Received Sodium Chloride 0.9% [Saline Flush] Med 08/20/20 08:50 Active 10 ml FLUSH ASDIRECTED PRN Blood Culture x2 Reflex Set [OM.PC] Stat Oth 08/20/20 08:51 Ordered Peripheral IV Insertion Adult [OM.PC] Stat Oth 08/20/20 08:50 Ordered Medication Orders Sodium Chloride (Saline Flush) 10 ml FLUSH ASDIRECTED PRN PRN Reason: Keep Vein Open Last Admin: 08/20/20 09:30 Dose: 10 ml Documented by: LETICIA Labs: Laboratory Tests 08/20/20 08/20/20 08/20/20 Range/Units 09:05 09:05 09:12 WBC 11.25 H (4.23-9.07) K/mm3 RBC 4.09 L (4.63-6.08) M/mm3 Hgb 12.8 L D (13.7-17.5) gm/dl Hct 40.4 (40.1-51.0) % MCV 98.8 H D (79.0-92.2) fl MCH 31.3 (25.7-32.2) pg MCHC 31.7 L (32.2-35.5) g/dl RDW Std Deviation 53.2 H (35.1-43.9) fL Plt Count 164 (163-337) K/mm3 MPV 11.4 (9.4-12.3) fl Neut % (Auto) 75.0 H (34.0-67.9) % Lymph % (Auto) 7.3 L (21.8-53.1) % Larimer % (Auto) 16.4 H (5.3-12.2) % Eos % (Auto) 0.4 L (0.8-7.0) Baso % (Auto) 0.4 (0.1-1.2) % Neut # (Auto) 8.45 H (1.78-5.38) K/mm3 Lymph # (Auto) 0.82 L (1.32-3.57) K/mm3 Larimer # (Auto) 1.84 H (0.30-0.82) K/mm3 Eos # (Auto) 0.04 (0.04-0.54) K/mm3 Baso # (Auto) 0.04 (0.01-0.08) K/mm3 Manual Slide Review Abnormal smear D-Dimer, Quantitative (0.19-0.50) mg/L Puncture Site Rt radial ABG pH 7.41 (7.35-7.45) ABG pCO2 40.7 (35.0-45.0) mmHg ABG pO2 72.0 L (80.0-100.0) mmHg ABG HCO3 25.5 (22.0-26.0) meq/L ABG O2 Saturation 95.1 L (96.0-97.0) % ABG Base Excess 1.3 (-2-2.0) Angel Luis Test Positive A-a Gradient 77 mmHg O2 Delivery Device Nasal cannula Oxygen Flow Rate 2.0 FiO2 28.00 (21.00-100.00) % Sodium (136-145) mEq/L Potassium (3.5-5.1) mEq/L Chloride (98-107) mEq/L Carbon Dioxide (21-32) mEq/L Anion Gap (5-15) BUN (7-18) mg/dL Creatinine (0.7-1.3) mg/dL Est Cr Clr Drug Dosing mL/min Estimated GFR (MDRD) (>60) mL/min BUN/Creatinine Ratio (14-18) Glucose (80-115) mg/dL Lactic Acid (0.4-2.0) mmol/L Calcium (8.5-10.1) mg/dL Ferritin (26-388) ng/ml Total Bilirubin (0.2-1.0) mg/dL AST (15-37) U/L ALT (16-63) U/L Alkaline Phosphatase (46-116) U/L Lactate Dehydrogenase (85-227) U/L Troponin I (0.00-0.056) ng/mL C-Reactive Protein (<1.0) mg/dL NT-Pro-B Natriuret Pep (0-125) pg/mL Total Protein (6.4-8.2) g/dl Albumin (3.4-5.0) g/dl Globulin gm/dL Albumin/Globulin Ratio (1-2) SARS-CoV-2 RNA (GRAYSON) Positive H (NEGATIVE) 08/20/20 08/20/20 08/20/20 Range/Units 09:12 09:12 09:12 WBC (4.23-9.07) K/mm3 RBC (4.63-6.08) M/mm3 Hgb (13.7-17.5) gm/dl Hct (40.1-51.0) % MCV (79.0-92.2) fl MCH (25.7-32.2) pg MCHC (32.2-35.5) g/dl RDW Std Deviation (35.1-43.9) fL Plt Count (163-337) K/mm3 MPV (9.4-12.3) fl Neut % (Auto) (34.0-67.9) % Lymph % (Auto) (21.8-53.1) % Larimer % (Auto) (5.3-12.2) % Eos % (Auto) (0.8-7.0) Baso % (Auto) (0.1-1.2) % Neut # (Auto) (1.78-5.38) K/mm3 Lymph # (Auto) (1.32-3.57) K/mm3 Larimer # (Auto) (0.30-0.82) K/mm3 Eos # (Auto) (0.04-0.54) K/mm3 Baso # (Auto) (0.01-0.08) K/mm3 Manual Slide Review D-Dimer, Quantitative 0.44 (0.19-0.50) mg/L Puncture Site ABG pH (7.35-7.45) ABG pCO2 (35.0-45.0) mmHg ABG pO2 (80.0-100.0) mmHg ABG HCO3 (22.0-26.0) meq/L ABG O2 Saturation (96.0-97.0) % ABG Base Excess (-2-2.0) Angel Luis Test A-a Gradient mmHg O2 Delivery Device Oxygen Flow Rate FiO2 (21.00-100.00) % Sodium 139 (136-145) mEq/L Potassium 4.4 (3.5-5.1) mEq/L Chloride 104 (98-107) mEq/L Carbon Dioxide 27 (21-32) mEq/L Anion Gap 12.4 (5-15) BUN 33 H (7-18) mg/dL Creatinine 2.6 H (0.7-1.3) mg/dL Est Cr Clr Drug Dosing 30.42 mL/min Estimated GFR (MDRD) 25 (>60) mL/min BUN/Creatinine Ratio 12.7 L (14-18) Glucose 165 H (80-115) mg/dL Lactic Acid (0.4-2.0) mmol/L Calcium 8.8 (8.5-10.1) mg/dL Ferritin (26-388) ng/ml Total Bilirubin 0.8 (0.2-1.0) mg/dL AST 27 (15-37) U/L ALT 37 (16-63) U/L Alkaline Phosphatase 123 H (46-116) U/L Lactate Dehydrogenase 251 H (85-227) U/L Troponin I 0.037 (0.00-0.056) ng/mL C-Reactive Protein 2.8 H* (<1.0) mg/dL NT-Pro-B Natriuret Pep 3336 H (0-125) pg/mL Total Protein 7.6 (6.4-8.2) g/dl Albumin 3.5 (3.4-5.0) g/dl Globulin 4.1 gm/dL Albumin/Globulin Ratio 0.9 L (1-2) SARS-CoV-2 RNA (GRAYSON) (NEGATIVE) 08/20/20 08/20/20 Range/Units 09:12 09:12 WBC (4.23-9.07) K/mm3 RBC (4.63-6.08) M/mm3 Hgb (13.7-17.5) gm/dl Hct (40.1-51.0) % MCV (79.0-92.2) fl MCH (25.7-32.2) pg MCHC (32.2-35.5) g/dl RDW Std Deviation (35.1-43.9) fL Plt Count (163-337) K/mm3 MPV (9.4-12.3) fl Neut % (Auto) (34.0-67.9) % Lymph % (Auto) (21.8-53.1) % [place]imer % (Auto) (5.3-12.2) % Eos % (Auto) (0.8-7.0) Baso % (Auto) (0.1-1.2) % Neut # (Auto) (1.78-5.38) K/mm3 Lymph # (Auto) (1.32-3.57) K/mm3 [place]imer # (Auto) (0.30-0.82) K/mm3 Eos # (Auto) (0.04-0.54) K/mm3 Baso # (Auto) (0.01-0.08) K/mm3 Manual Slide Review D-Dimer, Quantitative (0.19-0.50) mg/L Puncture Site ABG pH (7.35-7.45) ABG pCO2 (35.0-45.0) mmHg ABG pO2 (80.0-100.0) mmHg ABG HCO3 (22.0-26.0) meq/L ABG O2 Saturation (96.0-97.0) % ABG Base Excess (-2-2.0) Angel Luis Test A-a Gradient mmHg O2 Delivery Device Oxygen Flow Rate FiO2 (21.00-100.00) % Sodium (136-145) mEq/L Potassium (3.5-5.1) mEq/L Chloride (98-107) mEq/L Carbon Dioxide (21-32) mEq/L Anion Gap (5-15) BUN (7-18) mg/dL Creatinine (0.7-1.3) mg/dL Est Cr Clr Drug Dosing mL/min Estimated GFR (MDRD) (>60) mL/min BUN/Creatinine Ratio (14-18) Glucose (80-115) mg/dL Lactic Acid 0.8 (0.4-2.0) mmol/L Calcium (8.5-10.1) mg/dL Ferritin 115 (26-388) ng/ml Total Bilirubin (0.2-1.0) mg/dL AST (15-37) U/L ALT (16-63) U/L Alkaline Phosphatase (46-116) U/L Lactate Dehydrogenase (85-227) U/L Troponin I (0.00-0.056) ng/mL C-Reactive Protein (<1.0) mg/dL NT-Pro-B Natriuret Pep (0-125) pg/mL Total Protein (6.4-8.2) g/dl Albumin (3.4-5.0) g/dl Globulin gm/dL Albumin/Globulin Ratio (1-2) SARS-CoV-2 RNA (GRAYSON) (NEGATIVE) Meds: Medications Generic Name Dose Route Start Last Admin Trade Name Karen PRN Reason Stop Dose Admin Sodium Chloride 10 ml 08/20/20 08:50 08/20/20 09:30 Saline Flush FLUSH 10 ml ASDIRECTED PRN Administration Keep Vein Open Discontinued Medications Generic Name Dose Route Start Last Admin Trade Name Karen PRN Reason Stop Dose Admin Acetaminophen 975 mg 08/20/20 09:23 08/20/20 09:50 Tylenol PO 08/20/20 09:24 975 mg NOW ONE Administration - Re-Assessments/Exams Free Text/Narrative Re-Assessment/Exam: 08/20/20 11:01 I ordered oxygen, IV saline lock, EKG, CXR, labs, blood cultures, and ABG. 08/20/20 11:08 His WBC is elevated at 11.25. His Hgb is a little low at 12.8. His D-dimer is normal. His pO2 is low at 72. His creatinine is elevated at 2.6. His alk phos is elevated at 123. His LDH is elevated at 251. His troponin is negative. His CRP is elevated at 2.8. His BNP is elevated at 3336. His CXR shows bilateral viral infiltrates. I feel he needs to be admitted. I called Dr Dsouza and he agreed to the admission. Departure - Departure Time of Disposition: 11:15 Disposition: DC/Tfer to Acute Hospital 02 Condition: Fair Clinical Impression: COVID-19, Pneumonia due to COVID-19 virus, Renal insufficiency COPD (chronic obstructive pulmonary disease) Qualifiers: COPD type: unspecified COPD Qualified Code(s): J44.9 - Chronic obstructive pulmonary disease, unspecified - Discharge Information Referrals: Mell Flood MD [Primary Care Provider] - Forms: ED Department Discharge Sepsis Event Note (ED) - Evaluation Sepsis Screening Result: No Definite Risk - Focused Exam Vital Signs: Vital Signs Temp Pulse Resp BP Pulse Ox 08/20/20 08:10 99.8 F 108 H 32 H 201/100 H 81 L - My Orders Last 24 Hours: My Active Orders 08/20/20 08:50 Cardiac Monitoring [RC] . DIRECTED Oxygen Therapy [RC] PRN Sodium Chloride 0.9% [Saline Flush] 10 ml FLUSH ASDIRECTED PRN Peripheral IV Insertion Adult [OM.PC] Stat 08/20/20 08:51 EKG Documentation Completion [RC] STAT Peripheral IV Care [RC] . DIRECTED Chest 1V Frontal [CR] Stat Blood Culture x2 Reflex Set [OM.PC] Stat 08/20/20 09:12 CULTURE BLOOD [BC] Stat 08/20/20 09:20 CULTURE BLOOD [BC] Stat - Assessment/Plan Last 24 Hours: My Active Orders 08/20/20 08:50 Cardiac Monitoring [RC] . DIRECTED Oxygen Therapy [RC] PRN Sodium Chloride 0.9% [Saline Flush] 10 ml FLUSH ASDIRECTED PRN Peripheral IV Insertion Adult [OM.PC] Stat 08/20/20 08:51 EKG Documentation Completion [RC] STAT Peripheral IV Care [RC] . DIRECTED Chest 1V Frontal [CR] Stat Blood Culture x2 Reflex Set [OM.PC] Stat 08/20/20 09:12 CULTURE BLOOD [BC] Stat 08/20/20 09:20 CULTURE BLOOD [BC] Stat
[2020-08-20] MEDS ORDERED: Acetaminophen 325 MG Tab PO PRN (15:37)
[2020-08-20] MEDS ORDERED: Ondansetron 4 MG/2 ML SDV IV PRN (15:38)
--- NOTE | 2020-08-20 15:44 | PCM.HP.2 ---
H&P History of Present Illness - General Date of Service: 08/20/20 Admit Problem/Dx: Admission Diagnosis/Problem Admission Diagnosis/Problem Pneumonia - History of Present Illness Initial Comments - Free Text/Narative: 64-year-old male with multiple medical problems including diabetes, atrial fibrillation, congestive heart failure, hypertension, COPD, recurrent pneumonia, and chronic renal insufficiency presents to the emergency department with a 3 to 4-day history of fatigue and cough. Patient states that yesterday he started getting short of breath which prompted today's visit to the emergency department. Patient quit smoking approximately 2 weeks ago when he was in the ER with chest pain and a rule out HI. He did have an elevated troponin at that time. Patient left from the emergency department because he did not want to stay. Patient denies any nausea, vomiting, diarrhea, or abdominal pain. He does state he has very little taste, he does note he tastes weakness. On presentation to the emergency department his pulse ox was 81% on room air, blood pressure was 201/100, temperature 99.8, heart rate 108, respiratory rate of 32. EKG demonstrated A. fib with a ventricular rate of 117 bpm. Initial labs showed a white count of 11.25, hemoglobin 12.8 which is significantly less than when he was in the ER on 08/06/2020 of 15, platelet count 164. CRP 2.8, d-dimer 0.44, proBNP 3336, LDH 251, troponin 0 0.037 ABG: pH 7.41, PCO2 40.7, PO2 72.0, bicarb 25.5 on 2 L nasal cannula. Sodium 139, potassium 4.4, BUN 33, creatinine 2.6, estimated GFR 25, glucose 165. Albumin 3.5, calcium 8.8 SARS-CoV-2 RNA positive Chest x-ray showed right sided infiltrate with some left sided haziness also consistent with a infiltrate. Chest Pain Score (Numeric/FACES): 9 - Related Data Allergies/Adverse Reactions: Allergies Allergy/AdvReac Type Severity Reaction Status Date / Time Penicillins Allergy Mild Hives Verified 08/20/20 16:07 Sulfa (Sulfonamide Allergy Mild Hives Verified 08/20/20 16:07 Antibiotics) Home Medications: Home Meds carvediloL [Coreg] 12.5 mg PO BID #0 09/19/18 [Rx] Losartan [Cozaar] 100 mg PO DAILY tablet 05/23/19 [Rx] Dulaglutide [Trulicity] 1.5 mg SQ SA 06/26/19 [History] Furosemide [Lasix] 40 mg PO BID #60 tab 06/27/19 [Rx] Apixaban [Eliquis] 5 mg PO BID 11/27/19 [History] Diclofenac Sodium [Voltaren 1% Gel] 4 gram TOP QID PRN 11/27/19 [History] Multivitamin [Daily Multiple Vitamin] 1 tab PO DAILY 11/27/19 [History] Sodium Bicarbonate 650 mg PO BID 11/27/19 [History] Albuterol Sulfate [Proventil Hfa] 2 puff INH Q4H PRN 02/07/20 [History] Alogliptin Benzoate [Alogliptin] 25 mg PO DAILY 02/07/20 [History] Mirtazapine 45 mg PO BEDTIME 02/07/20 [History] Nortriptyline 20 mg PO BEDTIME 02/07/20 [History] Rosuvastatin Calcium 20 mg PO BEDTIME 02/07/20 [History] methIMAzole [Tapazole] 5 mg PO DAILY 02/07/20 [History] Insulin Lispro [HumaLOG] 0 unit SUBCUT QIDACANDBED vial 02/08/20 [Rx] Insulin Glarg,Human.Rec.Analog [Lantus] 48 unit SUBCUT BEDTIME 08/06/20 [History] hydrALAZINE [Apresoline] 25 mg PO BID 08/06/20 [History] Cannabidiol (Cbd) Extract [CBD Oil] 1 drp PO DAILY 08/20/20 [History] Past Medical History HEENT History: Reports: Glaucoma, Hard of Hearing, Impaired Vision, Sinusitis Other HEENT History: wears eyeglasses for driving only Cardiovascular History: Reports: Afib, Heart Failure, High Cholesterol, Hypertension, SOB on Exertion Respiratory History: Reports: Bronchitis, Recurrent, COPD, Pneumonia, Recurrent, Sleep Apnea Other Respiratory History: hypoxemic respiratory failure Gastrointestinal History: Reports: Diverticulosis, GERD Genitourinary History: Reports: Chronic Renal Insuffiency, Diabetic Nephropathy Other Genitourinary History: Hx of prostate cancer. 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 - Past Surgical History Cardiovascular Surgical History: Reports: None Respiratory Surgical History: Reports: None GI Surgical History: Reports: Appendectomy Male Surgical History: Reports: None Endocrine Surgical History: Reports: None Neurological Surgical History: Reports: None Musculoskeletal Surgical History: Reports: None Oncologic Surgical History: Reports: None Social & Family History - Family History Family Medical History: Noncontributory Cardiac: Reports: Heart Failure Respiratory: Reports: Asthma - Tobacco Use Smoking Status *Q: Former Smoker Years of Tobacco use: 50 Packs/Tins Daily: 1.5 Used Tobacco, but Quit: Yes Month/Year Tobacco Last Used: 08/05/20 Second Hand Smoke Exposure: No - Caffeine Use Caffeine Use: Reports: Coffee - Recreational Drug Use Recreational Drug Use: No - Living Situation & Occupation Living situation: Reports: , with Spouse 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 Exam - Exam Exam: See Below - Vital Signs Vital Signs: Last Vital Signs Temp 98.6 F 08/20/20 13:15 Pulse 91 08/20/20 13:15 Resp 20 08/20/20 13:15 BP 152/94 H 08/20/20 13:15 Pulse Ox 94 L 08/20/20 13:15 Weight: 104.326 kg - Exam Quality Assessment: Supplemental Oxygen General: Alert, Oriented, Moderate Distress HEENT: Conjunctiva Clear, EOMI, Hearing Intact, Mucosa Moist & [place], Posterior Pharynx Clear Neck: Supple, Trachea Midline, 2 Lungs: Decreased Breath Sounds, Rales (Minimal bibasilar rales). No: Normal Respiratory Effort (Increased respiratory rate with mild increase use of accessory muscles.) Cardiovascular: Irregular Rhythm (Regular rate) GI/Abdominal Exam: Normal Bowel Sounds, Non-Tender, No Organomegaly (Unable to determine secondary to distention), No Abnormal Bruit, Distended. No: Soft (Firm) Extremities: Normal Inspection, Normal Capillary Refill, Pedal Edema (1-2+) Peripheral Pulses: 2+: Posterior Tibial (L), Posterior Tibial (R), Dorsalis Pedis (L), Dorsalis Pedis (R) Skin: Warm, Dry, Intact Neuro Extensive - Mental Status: Alert, Oriented x3, Normal Mood/Affect, Normal Cognition, Memory Intact Neuro Extensive - Motor, Sensory, Reflexes: CN II-XII Intact Psychiatric: Alert, Normal Affect, Normal Mood - Patient Data Lab Results Last 24 hrs: Laboratory Results - last 24 hr 08/20/20 08/20/20 08/20/20 Range/Units 09:05 09:05 09:12 WBC 11.25 H (4.23-9.07) K/mm3 RBC 4.09 L (4.63-6.08) M/mm3 Hgb 12.8 L D (13.7-17.5) gm/dl Hct 40.4 (40.1-51.0) % MCV 98.8 H D (79.0-92.2) fl MCH 31.3 (25.7-32.2) pg MCHC 31.7 L (32.2-35.5) g/dl RDW Std Deviation 53.2 H (35.1-43.9) fL Plt Count 164 (163-337) K/mm3 MPV 11.4 (9.4-12.3) fl Neut % (Auto) 75.0 H (34.0-67.9) % Lymph % (Auto) 7.3 L (21.8-53.1) % [place] % (Auto) 16.4 H (5.3-12.2) % Eos % (Auto) 0.4 L (0.8-7.0) Baso % (Auto) 0.4 (0.1-1.2) % Neut # (Auto) 8.45 H (1.78-5.38) K/mm3 Lymph # (Auto) 0.82 L (1.32-3.57) K/mm3 [place] # (Auto) 1.84 H (0.30-0.82) K/mm3 Eos # (Auto) 0.04 (0.04-0.54) K/mm3 Baso # (Auto) 0.04 (0.01-0.08) K/mm3 Manual Slide Review Abnormal smear D-Dimer, Quantitative (0.19-0.50) mg/L Puncture Site Rt radial ABG pH 7.41 (7.35-7.45) ABG pCO2 40.7 (35.0-45.0) mmHg ABG pO2 72.0 L (80.0-100.0) mmHg ABG HCO3 25.5 (22.0-26.0) meq/L ABG O2 Saturation 95.1 L (96.0-97.0) % ABG Base Excess 1.3 (-2-2.0) Angel Luis Test Positive A-a Gradient 77 mmHg O2 Delivery Device Nasal cannula Oxygen Flow Rate 2.0 FiO2 28.00 (21.00-100.00) % Sodium (136-145) mEq/L Potassium (3.5-5.1) mEq/L Chloride (98-107) mEq/L Carbon Dioxide (21-32) mEq/L Anion Gap (5-15) BUN (7-18) mg/dL Creatinine (0.7-1.3) mg/dL Est Cr Clr Drug Dosing mL/min Estimated GFR (MDRD) (>60) mL/min BUN/Creatinine Ratio (14-18) Glucose (80-115) mg/dL POC Glucose (80-115) mg/dL Lactic Acid (0.4-2.0) mmol/L Calcium (8.5-10.1) mg/dL Ferritin (26-388) ng/ml Total Bilirubin (0.2-1.0) mg/dL AST (15-37) U/L ALT (16-63) U/L Alkaline Phosphatase (46-116) U/L Lactate Dehydrogenase (85-227) U/L Troponin I (0.00-0.056) ng/mL C-Reactive Protein (<1.0) mg/dL NT-Pro-B Natriuret Pep (0-125) pg/mL Total Protein (6.4-8.2) g/dl Albumin (3.4-5.0) g/dl Globulin gm/dL Albumin/Globulin Ratio (1-2) SARS-CoV-2 RNA ([facility]) Positive H (NEGATIVE) 08/20/20 08/20/20 08/20/20 Range/Units 09:12 09:12 09:12 WBC (4.23-9.07) K/mm3 RBC (4.63-6.08) M/mm3 Hgb (13.7-17.5) gm/dl Hct (40.1-51.0) % MCV (79.0-92.2) fl MCH (25.7-32.2) pg MCHC (32.2-35.5) g/dl RDW Std Deviation (35.1-43.9) fL Plt Count (163-337) K/mm3 MPV (9.4-12.3) fl Neut % (Auto) (34.0-67.9) % Lymph % (Auto) (21.8-53.1) % [place] % (Auto) (5.3-12.2) % Eos % (Auto) (0.8-7.0) Baso % (Auto) (0.1-1.2) % Neut # (Auto) (1.78-5.38) K/mm3 Lymph # (Auto) (1.32-3.57) K/mm3 [place] # (Auto) (0.30-0.82) K/mm3 Eos # (Auto) (0.04-0.54) K/mm3 Baso # (Auto) (0.01-0.08) K/mm3 Manual Slide Review D-Dimer, Quantitative 0.44 (0.19-0.50) mg/L Puncture Site ABG pH (7.35-7.45) ABG pCO2 (35.0-45.0) mmHg ABG pO2 (80.0-100.0) mmHg ABG HCO3 (22.0-26.0) meq/L ABG O2 Saturation (96.0-97.0) % ABG Base Excess (-2-2.0) Angel Luis Test A-a Gradient mmHg O2 Delivery Device Oxygen Flow Rate FiO2 (21.00-100.00) % Sodium 139 (136-145) mEq/L Potassium 4.4 (3.5-5.1) mEq/L Chloride 104 (98-107) mEq/L Carbon Dioxide 27 (21-32) mEq/L Anion Gap 12.4 (5-15) BUN 33 H (7-18) mg/dL Creatinine 2.6 H (0.7-1.3) mg/dL Est Cr Clr Drug Dosing 30.42 mL/min Estimated GFR (MDRD) 25 (>60) mL/min BUN/Creatinine Ratio 12.7 L (14-18) Glucose 165 H (80-115) mg/dL POC Glucose (80-115) mg/dL Lactic Acid (0.4-2.0) mmol/L Calcium 8.8 (8.5-10.1) mg/dL Ferritin (26-388) ng/ml Total Bilirubin 0.8 (0.2-1.0) mg/dL AST 27 (15-37) U/L ALT 37 (16-63) U/L Alkaline Phosphatase 123 H (46-116) U/L Lactate Dehydrogenase 251 H (85-227) U/L Troponin I 0.037 (0.00-0.056) ng/mL C-Reactive Protein 2.8 H* (<1.0) mg/dL NT-Pro-B Natriuret Pep 3336 H (0-125) pg/mL Total Protein 7.6 (6.4-8.2) g/dl Albumin 3.5 (3.4-5.0) g/dl Globulin 4.1 gm/dL Albumin/Globulin Ratio 0.9 L (1-2) SARS-CoV-2 RNA ([facility]) (NEGATIVE) 08/20/20 08/20/20 08/20/20 Range/Units 09:12 09:12 14:30 WBC (4.23-9.07) K/mm3 RBC (4.63-6.08) M/mm3 Hgb (13.7-17.5) gm/dl Hct (40.1-51.0) % MCV (79.0-92.2) fl MCH (25.7-32.2) pg MCHC (32.2-35.5) g/dl RDW Std Deviation (35.1-43.9) fL Plt Count (163-337) K/mm3 MPV (9.4-12.3) fl Neut % (Auto) (34.0-67.9) % Lymph % (Auto) (21.8-53.1) % [place] % (Auto) (5.3-12.2) % Eos % (Auto) (0.8-7.0) Baso % (Auto) (0.1-1.2) % Neut # (Auto) (1.78-5.38) K/mm3 Lymph # (Auto) (1.32-3.57) K/mm3 [place] # (Auto) (0.30-0.82) K/mm3 Eos # (Auto) (0.04-0.54) K/mm3 Baso # (Auto) (0.01-0.08) K/mm3 Manual Slide Review D-Dimer, Quantitative (0.19-0.50) mg/L Puncture Site ABG pH (7.35-7.45) ABG pCO2 (35.0-45.0) mmHg ABG pO2 (80.0-100.0) mmHg ABG HCO3 (22.0-26.0) meq/L ABG O2 Saturation (96.0-97.0) % ABG Base Excess (-2-2.0) Angel Luis Test A-a Gradient mmHg O2 Delivery Device Oxygen Flow Rate FiO2 (21.00-100.00) % Sodium (136-145) mEq/L Potassium (3.5-5.1) mEq/L Chloride (98-107) mEq/L Carbon Dioxide (21-32) mEq/L Anion Gap (5-15) BUN (7-18) mg/dL Creatinine (0.7-1.3) mg/dL Est Cr Clr Drug Dosing mL/min Estimated GFR (MDRD) (>60) mL/min BUN/Creatinine Ratio (14-18) Glucose (80-115) mg/dL POC Glucose 111 (80-115) mg/dL Lactic Acid 0.8 (0.4-2.0) mmol/L Calcium (8.5-10.1) mg/dL Ferritin 115 (26-388) ng/ml Total Bilirubin (0.2-1.0) mg/dL AST (15-37) U/L ALT (16-63) U/L Alkaline Phosphatase (46-116) U/L Lactate Dehydrogenase (85-227) U/L Troponin I (0.00-0.056) ng/mL C-Reactive Protein (<1.0) mg/dL NT-Pro-B Natriuret Pep (0-125) pg/mL Total Protein (6.4-8.2) g/dl Albumin (3.4-5.0) g/dl Globulin gm/dL Albumin/Globulin Ratio (1-2) SARS-CoV-2 RNA ([facility]) (NEGATIVE) Result Diagrams: 08/20/20 09:12 08/20/20 09:12 Sepsis Event Note - Evaluation Sepsis Screening Result: No Definite Risk - Focused Exam Vital Signs: Vital Signs Temp Pulse Resp BP Pulse Ox 08/20/20 13:15 98.6 F 91 20 152/94 H 94 L 08/20/20 11:45 99.8 F 92 20 149/87 H 94 L 08/20/20 08:10 99.8 F 108 H 32 H 201/100 H 81 L - Problem List (1) COPD (chronic obstructive pulmonary disease) SNOMED Code(s): 88425249 ICD Code: J44.9 - CHRONIC OBSTRUCTIVE PULMONARY DISEASE, UNSPECIFIED Status: Acute Current Visit: Yes Qualifiers: COPD type: unspecified COPD Qualified Code(s): J44.9 - Chronic obstructive pulmonary disease, unspecified (2) Pneumonia due to COVID-19 virus SNOMED Code(s): 526270792 ICD Code: U07.1 - COVID-19; J12.89 - OTHER VIRAL PNEUMONIA Status: Acute Current Visit: Yes (3) Renal insufficiency SNOMED Code(s): 701129387, 493849831 ICD Code: N28.9 - DISORDER OF KIDNEY AND URETER, UNSPECIFIED Status: Acute Current Visit: Yes (4) Acute decompensated heart failure SNOMED Code(s): 60732979, 144279743 ICD Code: I50.9 - HEART FAILURE, UNSPECIFIED Status: Acute Current Visit: No (5) Acute kidney injury SNOMED Code(s): 16983571, 05639701 ICD Code: N17.9 - ACUTE KIDNEY FAILURE, UNSPECIFIED Status: Acute Current Visit: No (6) Atrial fibrillation SNOMED Code(s): 55007751 ICD Code: I48.91 - UNSPECIFIED ATRIAL FIBRILLATION Status: Acute Current Visit: No (7) Chronic anticoagulation SNOMED Code(s): 085441784 ICD Code: Z79.01 - RETIREMENT (CURRENT) USE OF ANTICOAGULANTS Status: Acute Current Visit: No (8) Diabetic nephropathy associated with type 2 diabetes mellitus SNOMED Code(s): 046238742, 307003136 ICD Code: E11.21 - TYPE 2 DIABETES MELLITUS WITH DIABETIC NEPHROPATHY Status: Acute Current Visit: No Problem List Initiated/Reviewed/Updated: Yes Orders Last 24hrs: Active Orders 24 hr Category Date Time Status Patient Status [ADT] Routine ADT 08/20/20 14:01 Active Blood Glucose Check, Bedside [RC] QID Care 08/20/20 14:23 Active Cardiac Monitoring [RC] . DIRECTED Care 08/20/20 15:37 Ordered Oxygen Therapy [RC] PRN Care 08/20/20 15:38 Ordered RT Incentive Spirometry [RC] ASDIRECTED Care 08/20/20 15:37 Ordered Up With Assistance [RC] ASDIRECTED Care 08/20/20 15:38 Ordered VTE/DVT Education [RC] PER UNIT ROUTINE Care 08/20/20 15:38 Ordered Verify Patient Consent Obtain [RC] ASDIRECTED Care 08/20/20 15:36 Ordered Vital Signs [RC] Q4H Care 08/20/20 15:38 Ordered ADA Diabetic [[place] [employer] Diet] [DIET Diet 08/20/20 Dinner Active ] Chest 1V Frontal [CR] Stat Exams 08/20/20 08:51 Taken ABO/RH TYPE [BBK] Routine Lab 08/20/20 15:36 Ordered C-REACTIVE PROTEIN [CHEM] AM Lab 08/21/20 05:11 Ordered C-REACTIVE PROTEIN [CHEM] AM Lab 08/22/20 05:11 Ordered C-REACTIVE PROTEIN [CHEM] AM Lab 08/23/20 05:11 Ordered C-REACTIVE PROTEIN [CHEM] AM Lab 08/24/20 05:11 Ordered CBC WITH AUTO DIFF [HEME] AM Lab 08/21/20 05:11 Ordered CBC WITH AUTO DIFF [HEME] AM Lab 08/22/20 05:11 Ordered CBC WITH AUTO DIFF [HEME] AM Lab 08/23/20 05:11 Ordered CBC WITH AUTO DIFF [HEME] AM Lab 08/24/20 05:11 Ordered CMP [COMPREHENSIVE METABOLIC PN,CMP] [CHEM] AM Lab 08/21/20 05:11 Ordered CMP [COMPREHENSIVE METABOLIC PN,CMP] [CHEM] AM Lab 08/22/20 05:11 Ordered CMP [COMPREHENSIVE METABOLIC PN,CMP] [CHEM] AM Lab 08/23/20 05:11 Ordered CMP [COMPREHENSIVE METABOLIC PN,CMP] [CHEM] AM Lab 08/24/20 05:11 Ordered CULTURE BLOOD [BC] Stat Lab 08/20/20 09:12 Received CULTURE BLOOD [BC] Stat Lab 08/20/20 09:20 Received DD [D-DIMER QUANTITATIVE] [COAG] AM Lab 08/21/20 05:11 Ordered DD [D-DIMER QUANTITATIVE] [COAG] AM Lab 08/22/20 05:11 Ordered DD [D-DIMER QUANTITATIVE] [COAG] AM Lab 08/23/20 05:11 Ordered DD [D-DIMER QUANTITATIVE] [COAG] AM Lab 08/24/20 05:11 Ordered FIBRINOGEN [COAG] Routine Lab 08/20/20 15:43 Ordered FRESH FROZEN PLASMA [BBK] Routine Lab 08/20/20 15:36 Ordered MAGNESIUM [CHEM] AM Lab 08/21/20 05:11 Ordered MAGNESIUM [CHEM] AM Lab 08/22/20 05:11 Ordered MAGNESIUM [CHEM] AM Lab 08/23/20 05:11 Ordered MAGNESIUM [CHEM] AM Lab 08/24/20 05:11 Ordered PHOSPHORUS [CHEM] AM Lab 08/21/20 05:11 Ordered PHOSPHORUS [CHEM] AM Lab 08/22/20 05:11 Ordered PHOSPHORUS [CHEM] AM Lab 08/23/20 05:11 Ordered PHOSPHORUS [CHEM] AM Lab 08/24/20 05:11 Ordered PROCALCITONIN [REF] Stat Lab 08/20/20 15:37 Ordered Acetaminophen [TylenoL] Med 08/20/20 15:37 Ordered 650 mg PO Q4H PRN HYDROmorphone [Dilaudid] Med 08/20/20 15:38 Ordered 0.5 mg IVPUSH Q2H PRN Ondansetron [Zofran] Med 08/20/20 15:38 Ordered 4 mg IV Q4H PRN Sodium Chloride 0.9% [Saline Flush] Med 08/20/20 08:50 Active 10 ml FLUSH ASDIRECTED PRN oxyCODONE Med 08/20/20 15:38 Ordered 10 mg PO Q4H PRN Blood Culture x2 Reflex Set [OM.PC] Stat Oth 08/20/20 08:51 Ordered Isolation [COMM] Stat Oth 08/20/20 15:37 Ordered Peripheral IV Insertion Adult [OM.PC] Stat Oth 08/20/20 08:50 Ordered RT Acapella [RESPCARE] Routine Oth 08/20/20 15:37 Ordered Transfuse Fresh Frozen Plasma [COMM] Routine Oth 08/20/20 15:36 Ordered Resuscitation Status Routine Resus Stat 08/20/20 15:38 Ordered Medication Orders Acetaminophen (Tylenol) 650 mg PO Q4H PRN PRN Reason: Fever Greater Than 101 Hydromorphone HCl (Dilaudid) 0.5 mg IVPUSH Q2H PRN PRN Reason: Pain (severe 7-10) Ondansetron HCl (Zofran) 4 mg IV Q4H PRN PRN Reason: Nausea/Vomiting Oxycodone HCl (Oxycodone) 10 mg PO Q4H PRN PRN Reason: Pain (moderate 4-6) Sodium Chloride (Saline Flush) 10 ml FLUSH ASDIRECTED PRN PRN Reason: Keep Vein Open Last Admin: 08/20/20 09:30 Dose: 10 ml Documented by: LETICIA Assessment/Plan Comment:: COVID-19 pneumonia History of recurrent pneumonia and bronchitis COPD 40+-pack-year history, stopped smoking 2 weeks ago. * 3 to 4-day history of cough with 1 day history of shortness of breath. Presented to the emergency department with oxygen saturations at 81% on room air. Patient does not know where he may have contracted COVID-19. He just stopped smoking 2 weeks ago and has multiple risk factors concerning for bad outcomes. * Transferred from emergency department to floor on 3 L with O2 sats in the low 90s. He quickly worsened on the floor and required 6 L to maintain Sp02 above 88%. He was then transferred to the ICU. * NEWS2 score of 8: High risk for worsening * History of 40+ pack year history of smoking. Quit 2 weeks ago. * CXR with ground glass appearance on rt side, infiltrate on left. * WBC 11.25, D-Dimer 0.44, CRP 2.8, LDH 251 (elevated), lactic acid 0.8, ferritin 115, troponin neg. Congestive heart failure with preserved ejection fraction, deteriorated Atrial fibrillation Hypertension Hyperlipidemia Echocardiogram from 06/26/2019 1. Left ventricular ejection fraction by visual estimation is 55 to 60%. 2. Normal left ventricular systolic function. 3. Mild mitral valve regurgitation. 4. The right ventricular systolic pressure is moderately elevated at 49.5 mmHg. 5. The inferior vena cava is dilated with respiratory size variation less than 50%. 6. Compared to 09/14/2018 no significant change. RVSP is measured to be in the moderate range. 7. No regional wall motion abnormalities. 8. There is moderate biatrial dilatation. * proBNP 3300 * On Lasix 40 mg p.o. twice daily at home * Patient likely has a moderate amount of fluid overload causing worsening of his oxygenation. Unfortunately, he also has worsening of his renal function making it difficult to diurese. * On Eliquis 5 mg twice daily for stroke prevention * On carvedilol 12.5 mg twice daily, losartan 100 mg daily, hydralazine 25 mg twice daily for blood pressure. Insulin-dependent diabetes * Hemoglobin A1c 9.6 in January of this year * On Lantus 48 units at bedtime, sliding scale insulin, Trulicity, and alogliptin 25 mg daily * Initial glucose 165 Acute on chronic renal insufficiency * BUN 33, creatinine 2.6, estimated GFR 25 * Remdesivir is contraindicated because of GFR less than 30 * Typical GFR around 30 Hypothyroidism * On methimazole 5 mg daily Plan * Move patient to ICU for worsening hypoxemia and shortness of breath. * FiO2 to keep SPO2 greater than 84%. * Currently we do not have high flow nasal cannula available because of utilization by other patients. * He is not a candidate for him to severe secondary to his renal insufficiency. * 2 units convalescent plasma * Dexamethasone 6 mg p.o. daily x10 days * I-S and Acapella * Albuterol 2 puffs every 4 hours as needed * Gentle diuresis * procalcitonin * Hemoglobin A1c, TSH, and daily COVID labs in the morning * follow blood cultures * Close monitoring of renal function and urine output. * Olmedo catheter for strict I's and O's * Daily weights * Continue carvedilol and hydralazine. * Hold losartan. * Decrease Lantus to 40 units at bedtime secondary to likely decrease in appetite * Fingerstick blood sugar q. before meals and nightly * Sliding scale insulin * Hold Trulicity and alogliptin * Continue Eliquis * Patient is at very high risk for complications and worsening of his hypoxemia. Will progress to BiPAP if needed. Tried to prevent intubation if at all possible. * Encourage pronating VTE prophylaxis with Eliquis CODE STATUS: Full code Disposition: Admit to ICU for close observation and secondary to high likelihood of worsening condition. - Mortality Measure Prognosis:: Poor (Multiple comorbidities associated with COVID-19 pneumonia)
[2020-08-20] MEDS ORDERED: 50% Dextrose in Water 50 ML Syringe IVPUSH PRN (15:57)
[2020-08-20] MEDS: HYDROmorphone 0.5 MG/0.5 ML Syringe IVPUSH PRN (16:26)
[2020-08-20] MEDS: Dexamethasone 4 MG Tab PO SCH (16:53)
[2020-08-20] MEDS ORDERED: Furosemide 20 MG/2 ML VIAL IVPUSH ONE ×2 (17:10→22:30)
[2020-08-20] MEDS: cefTRIAXone 2 GM in Sodium Chloride 0.9% 100 ML IV SCH (17:54)
[2020-08-20] MEDS: Insulin Lispro 100 Units/ML 3 ML Vial SUBCUT SCH ×2 (19:06→21:12)
[2020-08-20] MEDS: Azithromycin 500 MG in Sodium Chloride 0.9% 250 ML IV SCH (19:07)
[2020-08-20] MEDS ORDERED: Sodium Chloride 0.9% 250 ML IV SCH (20:30)
[2020-08-20] MEDS: oxyCODONE 5 MG Tab PO PRN (20:48)
[2020-08-20] MEDS: Apixaban 5 MG Tab PO SCH (20:49)
[2020-08-20] MEDS: Sodium Bicarbonate 650 MG Tab PO SCH (20:49)
[2020-08-20] MEDS: Rosuvastatin 10 MG Tab PO SCH (20:49)
[2020-08-20] MEDS: Mirtazapine 15 MG Tab PO SCH (20:49)
[2020-08-20] MEDS: Nortriptyline 10 MG Cap PO SCH (20:51)
[2020-08-20] MEDS: hydrALAZINE 25 MG Tab PO SCH (21:08)
[2020-08-20] MEDS: Carvedilol 12.5 MG Tab PO SCH (21:09)
[2020-08-20] MEDS: Insulin Glarg,Human.Rec.Analog 100 Unit/ML SUBCUT SCH (21:13)
[2020-08-21] MEDS: Insulin Lispro 100 Units/ML 3 ML Vial SUBCUT SCH ×8 (06:34→21:04)
[2020-08-21 06:47] LABS: HEMOGLOBIN A1C 9.5 % (4.50-6.20)
[2020-08-21] MEDS: Sodium Bicarbonate 650 MG Tab PO SCH ×2 (08:54→20:56)
[2020-08-21] MEDS: oxyCODONE 5 MG Tab PO PRN ×3 (08:54→22:26)
[2020-08-21] MEDS: Carvedilol 12.5 MG Tab PO SCH ×2 (08:55→20:57)
[2020-08-21] MEDS: Methimazole 5 MG Tab PO SCH (08:55)
[2020-08-21] MEDS: hydrALAZINE 25 MG Tab PO SCH ×2 (08:55→20:58)
[2020-08-21] MEDS: Nicotine 21 MG/24 Hr Patch TRDERM SCH (08:55)
[2020-08-21] MEDS: Apixaban 5 MG Tab PO SCH ×2 (08:55→20:57)
--- NOTE | 2020-08-21 13:36 | PCM.PN ---
- General Info Date of Service: 08/21/20 Admission Dx/Problem (Free Text): Admission Diagnosis/Problem Admission Diagnosis/Problem Pneumonia Subjective Update: Patient had a significant improvement overnight. His oxygen requirements decreased in he was quickly weaned to 4 L nasal cannula. This afternoon he was able to wean down to room air and his oxygen saturations were in the low to mid 90s at rest. Patient's appetite is good, but he continues to complain of constipation. Functional Status: Reports: Pain Controlled - Review of Systems General: Reports: No Symptoms HEENT: Reports: No Symptoms Pulmonary: Reports: Cough Cardiovascular: Reports: No Symptoms Gastrointestinal: Reports: No Symptoms Musculoskeletal: Reports: No Symptoms - Patient Data Vitals - Most Recent: Last Vital Signs Temp 97.2 F 08/21/20 05:46 Pulse 97 08/21/20 08:55 Resp 13 08/21/20 05:46 BP 155/92 H 08/21/20 08:55 Pulse Ox 93 L 08/21/20 08:53 Weight - Most Recent: 104.054 kg I&O - Last 24 Hours: Intake & Output 08/20/20 08/21/20 08/21/20 22:59 06:59 14:59 Intake Total 660 481 480 Output Total 325 925 Balance 335 -444 480 Lab Results Last 24 Hours: Laboratory Results - last 24 hr 08/20/20 08/20/20 08/20/20 Range/Units 09:12 14:30 16:15 WBC (4.23-9.07) K/mm3 RBC (4.63-6.08) M/mm3 Hgb (13.7-17.5) gm/dl Hct (40.1-51.0) % MCV (79.0-92.2) fl MCH (25.7-32.2) pg MCHC (32.2-35.5) g/dl RDW Std Deviation (35.1-43.9) fL Plt Count (163-337) K/mm3 MPV (9.4-12.3) fl Neut % (Auto) (34.0-67.9) % Lymph % (Auto) (21.8-53.1) % [place] % (Auto) (5.3-12.2) % Eos % (Auto) (0.8-7.0) Baso % (Auto) (0.1-1.2) % Neut # (Auto) (1.78-5.38) K/mm3 Lymph # (Auto) (1.32-3.57) K/mm3 [place] # (Auto) (0.30-0.82) K/mm3 Eos # (Auto) (0.04-0.54) K/mm3 Baso # (Auto) (0.01-0.08) K/mm3 Fibrinogen 636 H (187-446) mg/dL D-Dimer, Quantitative (0.19-0.50) mg/L Sodium (136-145) mEq/L Potassium (3.5-5.1) mEq/L Chloride (98-107) mEq/L Carbon Dioxide (21-32) mEq/L Anion Gap (5-15) BUN (7-18) mg/dL Creatinine (0.7-1.3) mg/dL Est Cr Clr Drug Dosing mL/min Estimated GFR (MDRD) (>60) mL/min BUN/Creatinine Ratio (14-18) Glucose (80-115) mg/dL POC Glucose 111 (80-115) mg/dL Hemoglobin A1c (4.50-6.20) % Calcium (8.5-10.1) mg/dL Phosphorus (2.6-4.7) mg/dL Magnesium (1.8-2.4) mg/dl Total Bilirubin (0.2-1.0) mg/dL AST (15-37) U/L ALT (16-63) U/L Alkaline Phosphatase (46-116) U/L C-Reactive Protein (<1.0) mg/dL Total Protein (6.4-8.2) g/dl Albumin (3.4-5.0) g/dl Globulin gm/dL Albumin/Globulin Ratio (1-2) TSH 3rd Generation (0.358-3.74) uIU/mL Blood Type A NEGATIVE 08/20/20 08/20/20 08/20/20 Range/Units 18:06 21:12 23:00 WBC (4.23-9.07) K/mm3 RBC (4.63-6.08) M/mm3 Hgb (13.7-17.5) gm/dl Hct (40.1-51.0) % MCV (79.0-92.2) fl MCH (25.7-32.2) pg MCHC (32.2-35.5) g/dl RDW Std Deviation (35.1-43.9) fL Plt Count (163-337) K/mm3 MPV (9.4-12.3) fl Neut % (Auto) (34.0-67.9) % Lymph % (Auto) (21.8-53.1) % [place] % (Auto) (5.3-12.2) % Eos % (Auto) (0.8-7.0) Baso % (Auto) (0.1-1.2) % Neut # (Auto) (1.78-5.38) K/mm3 Lymph # (Auto) (1.32-3.57) K/mm3 [place] # (Auto) (0.30-0.82) K/mm3 Eos # (Auto) (0.04-0.54) K/mm3 Baso # (Auto) (0.01-0.08) K/mm3 Fibrinogen (187-446) mg/dL D-Dimer, Quantitative (0.19-0.50) mg/L Sodium (136-145) mEq/L Potassium (3.5-5.1) mEq/L Chloride (98-107) mEq/L Carbon Dioxide (21-32) mEq/L Anion Gap (5-15) BUN (7-18) mg/dL Creatinine (0.7-1.3) mg/dL Est Cr Clr Drug Dosing mL/min Estimated GFR (MDRD) (>60) mL/min BUN/Creatinine Ratio (14-18) Glucose (80-115) mg/dL POC Glucose 191 H 141 H 264 H (80-115) mg/dL Hemoglobin A1c (4.50-6.20) % Calcium (8.5-10.1) mg/dL Phosphorus (2.6-4.7) mg/dL Magnesium (1.8-2.4) mg/dl Total Bilirubin (0.2-1.0) mg/dL AST (15-37) U/L ALT (16-63) U/L Alkaline Phosphatase (46-116) U/L C-Reactive Protein (<1.0) mg/dL Total Protein (6.4-8.2) g/dl Albumin (3.4-5.0) g/dl Globulin gm/dL Albumin/Globulin Ratio (1-2) TSH 3rd Generation (0.358-3.74) uIU/mL Blood Type 08/21/20 08/21/20 08/21/20 Range/Units 04:32 04:32 04:32 WBC 5.60 (4.23-9.07) K/mm3 RBC 3.60 L (4.63-6.08) M/mm3 Hgb 11.3 L D (13.7-17.5) gm/dl Hct 36.1 L (40.1-51.0) % MCV 100.3 H (79.0-92.2) fl MCH 31.4 (25.7-32.2) pg MCHC 31.3 L (32.2-35.5) g/dl RDW Std Deviation 53.9 H (35.1-43.9) fL Plt Count 137 L (163-337) K/mm3 MPV 11.9 (9.4-12.3) fl Neut % (Auto) 79.4 H (34.0-67.9) % Lymph % (Auto) 13.6 L (21.8-53.1) % [place] % (Auto) 6.6 (5.3-12.2) % Eos % (Auto) 0 L (0.8-7.0) Baso % (Auto) 0.0 L (0.1-1.2) % Neut # (Auto) 4.45 (1.78-5.38) K/mm3 Lymph # (Auto) 0.76 L (1.32-3.57) K/mm3 [place] # (Auto) 0.37 (0.30-0.82) K/mm3 Eos # (Auto) 0.00 L (0.04-0.54) K/mm3 Baso # (Auto) 0.00 L (0.01-0.08) K/mm3 Fibrinogen (187-446) mg/dL D-Dimer, Quantitative 0.29 (0.19-0.50) mg/L Sodium 139 (136-145) mEq/L Potassium 4.7 (3.5-5.1) mEq/L Chloride 104 (98-107) mEq/L Carbon Dioxide 26 (21-32) mEq/L Anion Gap 13.7 (5-15) BUN 44 H (7-18) mg/dL Creatinine 2.7 H (0.7-1.3) mg/dL Est Cr Clr Drug Dosing 29.29 mL/min Estimated GFR (MDRD) 24 (>60) mL/min BUN/Creatinine Ratio 16.3 (14-18) Glucose 283 H (80-115) mg/dL POC Glucose (80-115) mg/dL Hemoglobin A1c (4.50-6.20) % Calcium 8.1 L (8.5-10.1) mg/dL Phosphorus 3.3 (2.6-4.7) mg/dL Magnesium 2.6 H (1.8-2.4) mg/dl Total Bilirubin 0.5 (0.2-1.0) mg/dL AST 25 (15-37) U/L ALT 31 (16-63) U/L Alkaline Phosphatase 99 (46-116) U/L C-Reactive Protein 7.6 H* (<1.0) mg/dL Total Protein 6.9 (6.4-8.2) g/dl Albumin 3.0 L (3.4-5.0) g/dl Globulin 3.9 gm/dL Albumin/Globulin Ratio 0.8 L (1-2) TSH 3rd Generation 1.096 (0.358-3.74) uIU/mL Blood Type 08/21/20 08/21/20 08/21/20 Range/Units 04:32 06:33 11:06 WBC (4.23-9.07) K/mm3 RBC (4.63-6.08) M/mm3 Hgb (13.7-17.5) gm/dl Hct (40.1-51.0) % MCV (79.0-92.2) fl MCH (25.7-32.2) pg MCHC (32.2-35.5) g/dl RDW Std Deviation (35.1-43.9) fL Plt Count (163-337) K/mm3 MPV (9.4-12.3) fl Neut % (Auto) (34.0-67.9) % Lymph % (Auto) (21.8-53.1) % [place] % (Auto) (5.3-12.2) % Eos % (Auto) (0.8-7.0) Baso % (Auto) (0.1-1.2) % Neut # (Auto) (1.78-5.38) K/mm3 Lymph # (Auto) (1.32-3.57) K/mm3 [place] # (Auto) (0.30-0.82) K/mm3 Eos # (Auto) (0.04-0.54) K/mm3 Baso # (Auto) (0.01-0.08) K/mm3 Fibrinogen (187-446) mg/dL D-Dimer, Quantitative (0.19-0.50) mg/L Sodium (136-145) mEq/L Potassium (3.5-5.1) mEq/L Chloride (98-107) mEq/L Carbon Dioxide (21-32) mEq/L Anion Gap (5-15) BUN (7-18) mg/dL Creatinine (0.7-1.3) mg/dL Est Cr Clr Drug Dosing mL/min Estimated GFR (MDRD) (>60) mL/min BUN/Creatinine Ratio (14-18) Glucose (80-115) mg/dL POC Glucose 234 H 361 H (80-115) mg/dL Hemoglobin A1c 9.50 H (4.50-6.20) % Calcium (8.5-10.1) mg/dL Phosphorus (2.6-4.7) mg/dL Magnesium (1.8-2.4) mg/dl Total Bilirubin (0.2-1.0) mg/dL AST (15-37) U/L ALT (16-63) U/L Alkaline Phosphatase (46-116) U/L C-Reactive Protein (<1.0) mg/dL Total Protein (6.4-8.2) g/dl Albumin (3.4-5.0) g/dl Globulin gm/dL Albumin/Globulin Ratio (1-2) TSH 3rd Generation (0.358-3.74) uIU/mL Blood Type [place] Results Last 24 Hours: Microbiology 08/20/20 09:20 Aerobic Blood Culture - Preliminary Blood - Venous - Lab Draw NO GROWTH AFTER 1 DAY Anaerobic Blood Culture - Preliminary NO GROWTH AFTER 1 DAY 08/20/20 09:12 Aerobic Blood Culture - Preliminary Blood - Venous NO GROWTH AFTER 1 DAY Anaerobic Blood Culture - Preliminary NO GROWTH AFTER 1 DAY Med Orders - Current: Current Medications Acetaminophen (Tylenol) 650 mg PO Q4H PRN PRN Reason: Fever Greater Than 101 Albuterol (Proventil Hfa) 0 gm INH Q4H PRN PRN Reason: Shortness of Breath Apixaban (Eliquis) 5 mg PO BID [facility] Last Admin: 08/21/20 08:55 Dose: 5 mg Documented by: Carvedilol (Coreg) 12.5 mg PO BID [facility] Last Admin: 08/21/20 08:55 Dose: 12.5 mg Documented by: Dexamethasone (Dexamethasone) 6 mg PO Q24H [facility] Stop: 08/29/20 17:01 Last Admin: 08/20/20 16:53 Dose: 6 mg Documented by: Dextrose/Water (Dextrose 50% In Water) 50 ml IVPUSH ASDIRECTED PRN PRN Reason: Hypoglycemia Hydralazine HCl (Apresoline) 25 mg PO BID [facility] Last Admin: 08/21/20 08:55 Dose: 25 mg Documented by: Hydromorphone HCl (Dilaudid) 0.5 mg IVPUSH Q2H PRN PRN Reason: Pain (severe 7-10) Last Admin: 08/20/20 16:26 Dose: 0.5 mg Documented by: Ceftriaxone Sodium 2 gm/ (Sodium Chloride) 100 mls @ 200 mls/hr IV Q24H [facility] Stop: 08/24/20 17:29 Last Admin: 08/20/20 17:54 Dose: 200 mls/hr Documented by: Azithromycin 500 mg/ Sodium (Chloride) 250 mls @ 250 mls/hr IV Q24H [facility] Stop: 08/22/20 18:59 Last Admin: 08/20/20 19:07 Dose: 250 mls/hr Documented by: Sodium Chloride (Normal Saline) 250 mls @ 100 mls/hr IV ASDIRECTED [facility] Last Admin: 08/20/20 20:30 Dose: 100 mls/hr Documented by: Insulin Glargine (Lantus) 40 unit SUBCUT BEDTIME [facility] Last Admin: 08/20/20 21:13 Dose: 40 units Documented by: Insulin Human Lispro (Humalog) 0 unit SUBCUT QIDACANDBED [facility]; Protocol Last Admin: 08/21/20 11:11 Dose: 5 unit Documented by: Insulin Human Lispro (Humalog) 8 unit SUBCUT TIDPC [facility] Last Admin: 08/21/20 13:32 Dose: Not Given Documented by: Methimazole (Methimazole) 5 mg PO DAILY [facility] Last Admin: 08/21/20 08:55 Dose: 5 mg Documented by: Mirtazapine (Remeron) 45 mg PO BEDTIME [facility] Last Admin: 08/20/20 20:49 Dose: 45 mg Documented by: Miscellaneous Information (Remove Patch) 1 ea TRDERM DAILY [facility] Nicotine (Habitrol) 21 mg TRDERM DAILY [facility] Last Admin: 08/21/20 08:55 Dose: Not Given Documented by: Nortriptyline HCl (Nortriptyline) 20 mg PO BEDTIME [facility] Last Admin: 08/20/20 20:51 Dose: 20 mg Documented by: Ondansetron HCl (Zofran) 4 mg IV Q4H PRN PRN Reason: Nausea/Vomiting Oxycodone HCl (Oxycodone) 10 mg PO Q4H PRN PRN Reason: Pain (moderate 4-6) Last Admin: 08/21/20 08:54 Dose: 10 mg Documented by: Polyethylene Glycol (Miralax) 17 gm PO DAILY [facility] Rosuvastatin Calcium (Crestor) 20 mg PO BEDTIME [facility] Last Admin: 08/20/20 20:49 Dose: 20 mg Documented by: Senna/Docusate Sodium (Senna Plus) 1 tab PO BID PRN PRN Reason: Constipation Sodium Bicarbonate (Sodium Bicarbonate) 650 mg PO BID [facility] Last Admin: 08/21/20 08:54 Dose: 650 mg Documented by: Sodium Chloride (Saline Flush) 10 ml FLUSH ASDIRECTED PRN PRN Reason: Keep Vein Open Last Admin: 08/20/20 09:30 Dose: 10 ml Documented by: Discontinued Medications Acetaminophen (Tylenol) 975 mg PO NOW ONE Stop: 08/20/20 09:24 Last Admin: 08/20/20 09:50 Dose: 975 mg Documented by: Furosemide (Lasix) 20 mg IVPUSH NOW ONE Stop: 08/20/20 17:11 Last Admin: 08/20/20 17:52 Dose: 20 mg Documented by: Furosemide (Lasix) 20 mg IVPUSH ONETIME ONE Stop: 08/20/20 22:31 Last Admin: 08/21/20 00:21 Dose: 20 mg Documented by: - Exam General: Alert, Oriented HEENT: Pupils Equal, Mucous Membr. Moist/[place] Neck: Supple Lungs: Normal Respiratory Effort, Rales (Bibasilar rales), Wheezing (Mild expiratory wheeze) Cardiovascular: Irregular Rhythm (Irregular rate) GI/Abdominal Exam: Normal Bowel Sounds, Soft, Distended, Tender (Mild left lower quadrant tenderness) Extremities: Normal Inspection, Normal Range of Motion, Non-Tender, No Pedal Edema Skin: Warm, Dry, Intact Psy/Mental Status: Alert, Anxious Sepsis Event Note - Evaluation Sepsis Screening Result: No Definite Risk - Focused Exam Vital Signs: Vital Signs Temp Temp Pulse Pulse Resp BP BP 08/21/20 08:55 97 155/92 H 08/21/20 08:53 08/21/20 06:36 08/21/20 05:46 97.2 F 78 13 140/103 H 08/21/20 05:13 97.0 F 78 14 134/92 H 08/21/20 05:00 97.3 F 87 13 140/103 H 08/21/20 04:25 97.8 F 77 15 133/89 Pulse Ox Pulse Ox Pulse Ox 08/21/20 08:55 08/21/20 08:53 93 L 08/21/20 06:36 95 08/21/20 05:46 08/21/20 05:13 94 L 08/21/20 05:00 91 L 08/21/20 04:25 - Problem List & Annotations (1) COPD (chronic obstructive pulmonary disease) SNOMED Code(s): 24003003 Code(s): J44.9 - CHRONIC OBSTRUCTIVE PULMONARY DISEASE, UNSPECIFIED Status: Acute Current Visit: Yes Qualifiers: COPD type: unspecified COPD Qualified Code(s): J44.9 - Chronic obstructive pulmonary disease, unspecified (2) Pneumonia due to COVID-19 virus SNOMED Code(s): 797308896 Code(s): U07.1 - COVID-19; J12.89 - OTHER VIRAL PNEUMONIA Status: Acute Current Visit: Yes (3) Renal insufficiency SNOMED Code(s): 719249240, 824190387 Code(s): N28.9 - DISORDER OF KIDNEY AND URETER, UNSPECIFIED Status: Acute Current Visit: Yes (4) Acute decompensated heart failure SNOMED Code(s): 71847204, 824652934 Code(s): I50.9 - HEART FAILURE, UNSPECIFIED Status: Acute Current Visit: No (5) Acute kidney injury SNOMED Code(s): 65382534, 78013164 Code(s): N17.9 - ACUTE KIDNEY FAILURE, UNSPECIFIED Status: Acute Current Visit: No (6) Atrial fibrillation SNOMED Code(s): 24884724 Code(s): I48.91 - UNSPECIFIED ATRIAL FIBRILLATION Status: Acute Current Visit: No (7) Chronic anticoagulation SNOMED Code(s): 208589305 Code(s): Z79.01 - LONGTERM (CURRENT) USE OF ANTICOAGULANTS Status: Acute Current Visit: No (8) Diabetic nephropathy associated with type 2 diabetes mellitus SNOMED Code(s): 574619637, 882054341 Code(s): E11.21 - TYPE 2 DIABETES MELLITUS WITH DIABETIC NEPHROPATHY Status: Acute Current Visit: No - Problem List Review Problem List Initiated/Reviewed/Updated: Yes - My Orders Last 24 Hours: My Active Orders 08/20/20 14:23 Blood Glucose Check, Bedside [RC] QID 08/20/20 15:36 Verify Patient Consent Obtain [RC] ASDIRECTED Transfuse Fresh Frozen Plasma [COMM] Routine 08/20/20 15:37 Cardiac Monitoring [RC] . DIRECTED RT Incentive Spirometry [RC] ASDIRECTED Acetaminophen [TylenoL] 650 mg PO Q4H PRN Isolation [COMM] Stat 08/20/20 15:38 Oxygen Therapy [RC] PRN Up With Assistance [RC] ASDIRECTED VTE/DVT Education [RC] BID Vital Signs [RC] Q4H HYDROmorphone [Dilaudid] 0.5 mg IVPUSH Q2H PRN Ondansetron [Zofran] 4 mg IV Q4H PRN oxyCODONE 10 mg PO Q4H PRN Resuscitation Status Routine 08/20/20 15:49 Albuterol [Proventil HFA] 0 gm INH Q4H PRN 08/20/20 15:52 RT Post Treatment Assessment [RC] Click to Edit RT Pre-Treatment Assessment [RC] Click to Edit 08/20/20 15:56 Pulse Oximetry Continuous Monitoring [OM.PC] Routine 08/20/20 15:57 Dextrose 50% in Water 50 ml IVPUSH ASDIRECTED PRN 08/20/20 Dinner ADA Diabetic [[employer]abetic [employer] Diet] [DIET] Insulin Lispro [HumaLOG] See Protocol SUBCUT QIDACANDBED cefTRIAXone [Rocephin] 2 gm Sodium Chloride 0.9% [Normal Saline] 100 ml IV Q24H dexAMETHasone 6 mg PO Q24H 08/20/20 18:00 Azithromycin [Zithromax] 500 mg Sodium Chloride 0.9% [Normal Saline] 250 ml IV Q24H 08/20/20 19:35 Patient Status [ADT] Routine 08/20/20 20:30 Sodium Chloride 0.9% [Normal Saline] 250 ml IV ASDIRECTED 08/20/20 21:00 Apixaban [Eliquis] 5 mg PO BID Insulin Glarg,Human.Rec.Analog [LantUS] 40 unit SUBCUT BEDTIME Mirtazapine [Remeron] 45 mg PO BEDTIME Nortriptyline 20 mg PO BEDTIME Rosuvastatin [Crestor] 20 mg PO BEDTIME Sodium Bicarbonate 650 mg PO BID carvediloL [Coreg] 12.5 mg PO BID hydrALAZINE [Apresoline] 25 mg PO BID 08/20/20 23:28 CPAP Adult [RT BiPAP/CPAP] [RC] ASDIRECTED 08/21/20 09:00 Nicotine [Habitrol] 21 mg TRDERM DAILY methIMAzole 5 mg PO DAILY 08/21/20 13:00 Insulin Lispro [HumaLOG] 8 unit SUBCUT TIDPC 08/21/20 13:30 Docusate Sodium/Sennosides [Senna Plus] 1 tab PO BID PRN polyethylene glycoL 3350 [MiraLAX] 17 gm PO DAILY 08/22/20 05:11 C-REACTIVE PROTEIN [CHEM] AM CBC WITH AUTO DIFF [HEME] AM CMP [COMPREHENSIVE METABOLIC PN,CMP] [CHEM] AM DD [D-DIMER QUANTITATIVE] [COAG] AM MAGNESIUM [CHEM] AM PHOSPHORUS [CHEM] AM 08/22/20 09:00 Remove Patch 1 ea TRDERM DAILY 08/23/20 05:11 C-REACTIVE PROTEIN [CHEM] AM CBC WITH AUTO DIFF [HEME] AM CMP [COMPREHENSIVE METABOLIC PN,CMP] [CHEM] AM DD [D-DIMER QUANTITATIVE] [COAG] AM MAGNESIUM [CHEM] AM PHOSPHORUS [CHEM] AM 08/24/20 05:11 C-REACTIVE PROTEIN [CHEM] AM CBC WITH AUTO DIFF [HEME] AM CMP [COMPREHENSIVE METABOLIC PN,CMP] [CHEM] AM DD [D-DIMER QUANTITATIVE] [COAG] AM MAGNESIUM [CHEM] AM PHOSPHORUS [CHEM] AM - Plan Plan:: 08/20/2020 COVID-19 pneumonia History of recurrent pneumonia and bronchitis COPD 40+-pack-year history, stopped smoking 2 weeks ago. * 3 to 4-day history of cough with 1 day history of shortness of breath. Presented to the emergency department with oxygen saturations at 81% on room air. Patient does not know where he may have contracted COVID-19. He just stopped smoking 2 weeks ago and has multiple risk factors concerning for bad outcomes. * Transferred from emergency department to floor on 3 L with O2 sats in the low 90s. He quickly worsened on the floor and required 6 L to maintain Sp02 above 88%. He was then transferred to the ICU. * NEWS2 score of 8: High risk for worsening * History of 40+ pack year history of smoking. Quit 2 weeks ago. * CXR with ground glass appearance on rt side, infiltrate on left. * WBC 11.25, D-Dimer 0.44, CRP 2.8, LDH 251 (elevated), lactic acid 0.8, ferritin 115, troponin neg. Congestive heart failure with preserved ejection fraction, deteriorated Atrial fibrillation Hypertension Hyperlipidemia Echocardiogram from 06/26/2019 1. Left ventricular ejection fraction by visual estimation is 55 to 60%. 2. Normal left ventricular systolic function. 3. Mild mitral valve regurgitation. 4. The right ventricular systolic pressure is moderately elevated at 49.5 mmHg. 5. The inferior vena cava is dilated with respiratory size variation less than 50%. 6. Compared to 09/14/2018 no significant change. RVSP is measured to be in the moderate range. 7. No regional wall motion abnormalities. 8. There is moderate biatrial dilatation. * proBNP 3300 * On Lasix 40 mg p.o. twice daily at home * Patient likely has a moderate amount of fluid overload causing worsening of his oxygenation. Unfortunately, he also has worsening of his renal function making it difficult to diurese. * On Eliquis 5 mg twice daily for stroke prevention * On carvedilol 12.5 mg twice daily, losartan 100 mg daily, hydralazine 25 mg twice daily for blood pressure. Insulin-dependent diabetes * Hemoglobin A1c 9.6 in January of this year * On Lantus 48 units at bedtime, sliding scale insulin, Trulicity, and alogliptin 25 mg daily * Initial glucose 165 Acute on chronic renal insufficiency * BUN 33, creatinine 2.6, estimated GFR 25 * Remdesivir is contraindicated because of GFR less than 30 * Typical GFR around 30 Hypothyroidism * On methimazole 5 mg daily 08/21/2020 COVID-19 pneumonia Significant improvement over the evening. Oxygenation status continues to improve after getting convalescent plasma. Currently on room air. CHF, atrial fibrillation, hypertension Negative fluid balance overnight and half a kilo weight loss. Holding Lasix this morning secondary to worsening renal function. Edema improved overnight. Blood pressure worse after holding losartan. Acute on chronic renal insufficiency BUN 44, creatinine 2.7, GFR 24no significant change, slightly worse Losartan held Insulin-dependent diabetes Hemoglobin A1c 9.5 Concerned about compliance. Blood sugars significantly elevated this morning likely worsened by dexamethasone. Plan * Continue ICU overnight and if continued improvement transfer back to medical status. * FiO2 to keep SPO2 greater than 88%. * He is not a candidate for remdesivir secondary to his renal insufficiency. * 2 units convalescent plasma, given * Dexamethasone 6 mg p.o. daily day 2 * I-S and Acapella * Albuterol 2 puffs every 4 hours as needed * COVID labs in the morning * follow blood cultures * Close monitoring of renal function and urine output. * Ol[place]o catheter for strict I's and O's * Daily weights * Continue carvedilol and hydralazine. * Hold losartan. * Decrease Lantus to 40 units at bedtime secondary to likely decrease in appetite * Humalog 8 units after each meal he eats greater than 70%. * Fingerstick blood sugar q. before meals and nightly * Sliding scale insulin * Hold Trulicity and alogliptin * Continue Eliquis * Patient is at very high risk for complications and worsening of his hypoxemia. Will progress to BiPAP if needed. * Encourage pronating VTE prophylaxis with Eliquis CODE STATUS: Full code Disposition: Admit to ICU for close observation and secondary to high likelihood of worsening condition.
[2020-08-21] MEDS: Polyethylene Glycol 3350 Powder 17 GM Packet PO SCH (13:39)
[2020-08-21] MEDS: Dexamethasone 4 MG Tab PO SCH (17:07)
[2020-08-21] MEDS: cefTRIAXone 2 GM in Sodium Chloride 0.9% 100 ML IV SCH (17:07)
[2020-08-21] MEDS: Azithromycin 500 MG in Sodium Chloride 0.9% 250 ML IV SCH (17:53)
[2020-08-21] MEDS: Mirtazapine 15 MG Tab PO SCH (20:55)
[2020-08-21] MEDS: Nortriptyline 10 MG Cap PO SCH (20:56)
[2020-08-21] MEDS: Rosuvastatin 10 MG Tab PO SCH (20:57)
[2020-08-21] MEDS: Insulin Glarg,Human.Rec.Analog 100 Unit/ML SUBCUT SCH (20:58)
[2020-08-22] MEDS: Insulin Lispro 100 Units/ML 3 ML Vial SUBCUT SCH ×7 (06:05→22:00)
[2020-08-22] MEDS: hydrALAZINE 25 MG Tab PO SCH ×2 (08:26→18:04)
[2020-08-22] MEDS: Sodium Bicarbonate 650 MG Tab PO SCH ×2 (08:26→20:22)
[2020-08-22] MEDS: Carvedilol 12.5 MG Tab PO SCH ×2 (08:26→20:24)
[2020-08-22] MEDS: Methimazole 5 MG Tab PO SCH (08:26)
[2020-08-22] MEDS: Apixaban 5 MG Tab PO SCH ×2 (08:26→21:00)
[2020-08-22] MEDS: Nicotine 21 MG/24 Hr Patch TRDERM SCH (08:27)
[2020-08-22] MEDS: Polyethylene Glycol 3350 Powder 17 GM Packet PO SCH (08:28)
[2020-08-22] MEDS: Sodium Chloride 0.9% 10 ML Syringe FLUSH PRN (08:32)
[2020-08-22] MEDS: oxyCODONE 5 MG Tab PO PRN ×2 (13:48→20:26)
--- NOTE | 2020-08-22 14:49 | PCM.PN ---
- General Info Date of Service: 08/22/20 Admission Dx/Problem (Free Text): Admission Diagnosis/Problem Admission Diagnosis/Problem Pneumonia Subjective Update: Patient continues to improve. He is off oxygen, but still is weak, is coughing, it is productive, and he has fatigue. Appetite is good. Functional Status: Reports: Pain Controlled - Review of Systems General: Reports: Fatigue Pulmonary: Reports: Shortness of Breath, Cough Cardiovascular: Reports: No Symptoms Gastrointestinal: Reports: No Symptoms Musculoskeletal: Reports: No Symptoms Psychiatric: Reports: No Symptoms - Patient Data Vitals - Most Recent: Last Vital Signs Temp 96.9 F 08/22/20 12:00 Pulse 95 08/22/20 08:26 Resp 16 08/22/20 12:00 BP 156/95 H 08/22/20 12:00 Pulse Ox 97 08/22/20 12:00 Weight - Most Recent: 108.409 kg I&O - Last 24 Hours: Intake & Output 08/21/20 08/22/20 08/22/20 22:59 06:59 14:59 Intake Total 980 500 720 Output Total 800 900 700 Balance 180 -400 20 Lab Results Last 24 Hours: Laboratory Results - last 24 hr 08/20/20 08/21/20 08/21/20 Range/Units 09:12 17:13 21:01 WBC (4.23-9.07) K/mm3 RBC (4.63-6.08) M/mm3 Hgb (13.7-17.5) gm/dl Hct (40.1-51.0) % MCV (79.0-92.2) fl MCH (25.7-32.2) pg MCHC (32.2-35.5) g/dl RDW Std Deviation (35.1-43.9) fL Plt Count (163-337) K/mm3 MPV (9.4-12.3) fl Neut % (Auto) (34.0-67.9) % Lymph % (Auto) (21.8-53.1) % [place] % (Auto) (5.3-12.2) % Eos % (Auto) (0.8-7.0) Baso % (Auto) (0.1-1.2) % Neut # (Auto) (1.78-5.38) K/mm3 Lymph # (Auto) (1.32-3.57) K/mm3 [place] # (Auto) (0.30-0.82) K/mm3 Eos # (Auto) (0.04-0.54) K/mm3 Baso # (Auto) (0.01-0.08) K/mm3 Manual Slide Review D-Dimer, Quantitative (0.19-0.50) mg/L Sodium (136-145) mEq/L Potassium (3.5-5.1) mEq/L Chloride (98-107) mEq/L Carbon Dioxide (21-32) mEq/L Anion Gap (5-15) BUN (7-18) mg/dL Creatinine (0.7-1.3) mg/dL Est Cr Clr Drug Dosing mL/min Estimated GFR (MDRD) (>60) mL/min BUN/Creatinine Ratio (14-18) Glucose (80-115) mg/dL POC Glucose 187 H 188 H (80-115) mg/dL Calcium (8.5-10.1) mg/dL Phosphorus (2.6-4.7) mg/dL Magnesium (1.8-2.4) mg/dl Total Bilirubin (0.2-1.0) mg/dL AST (15-37) U/L ALT (16-63) U/L Alkaline Phosphatase (46-116) U/L C-Reactive Protein (<1.0) mg/dL Total Protein (6.4-8.2) g/dl Albumin (3.4-5.0) g/dl Globulin gm/dL Albumin/Globulin Ratio (1-2) Procalcitonin 0.16 H (<0.10) ng/mL 08/22/20 08/22/20 08/22/20 Range/Units 05:40 05:40 05:40 WBC 11.93 H (4.23-9.07) K/mm3 RBC 3.80 L (4.63-6.08) M/mm3 Hgb 11.9 L (13.7-17.5) gm/dl Hct 38.0 L (40.1-51.0) % MCV 100.0 H (79.0-92.2) fl MCH 31.3 (25.7-32.2) pg MCHC 31.3 L (32.2-35.5) g/dl RDW Std Deviation 54.4 H (35.1-43.9) fL Plt Count 160 L (163-337) K/mm3 MPV 11.6 (9.4-12.3) fl Neut % (Auto) 85.8 H (34.0-67.9) % Lymph % (Auto) 7.6 L (21.8-53.1) % [place] % (Auto) 6.1 (5.3-12.2) % Eos % (Auto) 0 L (0.8-7.0) Baso % (Auto) 0.1 (0.1-1.2) % Neut # (Auto) 10.23 H (1.78-5.38) K/mm3 Lymph # (Auto) 0.91 L (1.32-3.57) K/mm3 [place] # (Auto) 0.73 (0.30-0.82) K/mm3 Eos # (Auto) 0.00 L (0.04-0.54) K/mm3 Baso # (Auto) 0.01 (0.01-0.08) K/mm3 Manual Slide Review Abnormal smear D-Dimer, Quantitative 0.32 (0.19-0.50) mg/L Sodium 140 (136-145) mEq/L Potassium 4.8 (3.5-5.1) mEq/L Chloride 104 (98-107) mEq/L Carbon Dioxide 24 (21-32) mEq/L Anion Gap 16.8 H (5-15) BUN 58 H (7-18) mg/dL Creatinine 2.5 H (0.7-1.3) mg/dL Est Cr Clr Drug Dosing 31.63 mL/min Estimated GFR (MDRD) 26 (>60) mL/min BUN/Creatinine Ratio 23.2 H (14-18) Glucose 349 H (80-115) mg/dL POC Glucose (80-115) mg/dL Calcium 8.3 L (8.5-10.1) mg/dL Phosphorus 4.2 (2.6-4.7) mg/dL Magnesium 2.9 H (1.8-2.4) mg/dl Total Bilirubin 0.4 (0.2-1.0) mg/dL AST 33 (15-37) U/L ALT 45 (16-63) U/L Alkaline Phosphatase 102 (46-116) U/L C-Reactive Protein 4.1 H* (<1.0) mg/dL Total Protein 7.5 (6.4-8.2) g/dl Albumin 3.2 L (3.4-5.0) g/dl Globulin 4.3 gm/dL Albumin/Globulin Ratio 0.7 L (1-2) Procalcitonin (<0.10) ng/mL 08/22/20 08/22/20 Range/Units 05:57 11:28 WBC (4.23-9.07) K/mm3 RBC (4.63-6.08) M/mm3 Hgb (13.7-17.5) gm/dl Hct (40.1-51.0) % MCV (79.0-92.2) fl MCH (25.7-32.2) pg MCHC (32.2-35.5) g/dl RDW Std Deviation (35.1-43.9) fL Plt Count (163-337) K/mm3 MPV (9.4-12.3) fl Neut % (Auto) (34.0-67.9) % Lymph % (Auto) (21.8-53.1) % [place] % (Auto) (5.3-12.2) % Eos % (Auto) (0.8-7.0) Baso % (Auto) (0.1-1.2) % Neut # (Auto) (1.78-5.38) K/mm3 Lymph # (Auto) (1.32-3.57) K/mm3 [place] # (Auto) (0.30-0.82) K/mm3 Eos # (Auto) (0.04-0.54) K/mm3 Baso # (Auto) (0.01-0.08) K/mm3 Manual Slide Review D-Dimer, Quantitative (0.19-0.50) mg/L Sodium (136-145) mEq/L Potassium (3.5-5.1) mEq/L Chloride (98-107) mEq/L Carbon Dioxide (21-32) mEq/L Anion Gap (5-15) BUN (7-18) mg/dL Creatinine (0.7-1.3) mg/dL Est Cr Clr Drug Dosing mL/min Estimated GFR (MDRD) (>60) mL/min BUN/Creatinine Ratio (14-18) Glucose (80-115) mg/dL POC Glucose 325 H 308 H (80-115) mg/dL Calcium (8.5-10.1) mg/dL Phosphorus (2.6-4.7) mg/dL Magnesium (1.8-2.4) mg/dl Total Bilirubin (0.2-1.0) mg/dL AST (15-37) U/L ALT (16-63) U/L Alkaline Phosphatase (46-116) U/L C-Reactive Protein (<1.0) mg/dL Total Protein (6.4-8.2) g/dl Albumin (3.4-5.0) g/dl Globulin gm/dL Albumin/Globulin Ratio (1-2) Procalcitonin (<0.10) ng/mL [place] Results Last 24 Hours: Microbiology 08/20/20 09:20 Aerobic Blood Culture - Preliminary Blood - Venous - Lab Draw NO GROWTH AFTER 2 DAYS Anaerobic Blood Culture - Preliminary NO GROWTH AFTER 2 DAYS 08/20/20 09:12 Aerobic Blood Culture - Preliminary Blood - Venous NO GROWTH AFTER 2 DAYS Anaerobic Blood Culture - Preliminary NO GROWTH AFTER 2 DAYS Med Orders - Current: Current Medications Acetaminophen (Tylenol) 650 mg PO Q4H PRN PRN Reason: Fever Greater Than 101 Albuterol (Proventil Hfa) 0 gm INH Q4H PRN PRN Reason: Shortness of Breath Apixaban (Eliquis) 5 mg PO BID [facility] Last Admin: 08/22/20 08:26 Dose: 5 mg Documented by: Azithromycin (Zithromax) 500 mg PO ONETIME ONE Stop: 08/22/20 15:01 Carvedilol (Coreg) 12.5 mg PO BID [facility] Last Admin: 08/22/20 08:26 Dose: 12.5 mg Documented by: Dexamethasone (Dexamethasone) 6 mg PO Q24H [facility] Stop: 08/29/20 15:01 Dextrose/Water (Dextrose 50% In Water) 50 ml IVPUSH ASDIRECTED PRN PRN Reason: Hypoglycemia Hydralazine HCl (Apresoline) 25 mg PO BID [facility] Last Admin: 08/22/20 08:26 Dose: 25 mg Documented by: Hydromorphone HCl (Dilaudid) 0.5 mg IVPUSH Q2H PRN PRN Reason: Pain (severe 7-10) Last Admin: 08/20/20 16:26 Dose: 0.5 mg Documented by: Sodium Chloride (Normal Saline) 250 mls @ 100 mls/hr IV ASDIRECTED [facility] Last Admin: 08/20/20 20:30 Dose: 100 mls/hr Documented by: Ceftriaxone Sodium 2 gm/ (Sodium Chloride) 100 mls @ 200 mls/hr IV ONETIME ONE Stop: 08/22/20 15:29 Insulin Glargine (Lantus) 40 unit SUBCUT BEDTIME [facility] Last Admin: 08/21/20 20:58 Dose: 40 units Documented by: Insulin Human Lispro (Humalog) 0 unit SUBCUT QIDACANDBED [facility]; Protocol Last Admin: 08/22/20 11:28 Dose: 8 unit Documented by: Insulin Human [facility]) [facility] Admin: 08/22/20 13:46 Dose: 8 units Documented by: Methimazole (Methimazole) 5 mg PO DAILY [facility] Last Admin: 08/22/20 08:26 Dose: 5 mg Documented by: Mirtazapine (Remeron) 45 mg PO BEDTIME [facility] Last Admin: 08/21/20 20:55 Dose: 45 mg Documented by: Miscellaneous Information (Remove Patch) 1 ea TRDERM DAILY [facility] Last Admin: 08/22/20 08:27 Dose: Not Given Documented by: Nicotine (Habitrol) 21 mg TRDERM DAILY [facility] Last Admin: 08/22/20 08:27 Dose: Not Given Documented by: Nortriptyline HCl (Nortriptyline) 20 mg PO BEDTIME [facility] Last Admin: 08/21/20 20:56 Dose: 20 mg Documented by: Ondansetron HCl (Zofran) 4 mg IV Q4H PRN PRN Reason: Nausea/Vomiting Oxycodone HCl (Oxycodone) 10 mg PO Q4H PRN PRN Reason: Pain (moderate 4-6) Last Admin: 08/22/20 13:48 Dose: 10 mg Documented by: Polyethylene Glycol (Miralax) 17 gm PO DAILY [facility] Last Admin: 08/22/20 08:28 Dose: Not Given Documented by: Rosuvastatin Calcium (Crestor) 20 mg PO BEDTIME [facility] Last Admin: 08/21/20 20:57 Dose: 20 mg Documented by: Senna/Docusate Sodium (Senna Plus) 1 tab PO BID PRN PRN Reason: Constipation Sodium Bicarbonate (Sodium Bicarbonate) 650 mg PO BID [facility] Last Admin: 08/22/20 08:26 Dose: 650 mg Documented by: Sodium Chloride (Saline Flush) 10 ml FLUSH ASDIRECTED PRN PRN Reason: Keep Vein Open Last Admin: 08/22/20 08:32 Dose: 10 ml Documented by: Discontinued Medications Acetaminophen (Tylenol) 975 mg PO NOW ONE Stop: 08/20/20 09:24 Last Admin: 08/20/20 09:50 Dose: 975 mg Documented by: Dexamethasone (Dexamethasone) 6 mg PO Q24H [place] Stop: 08/29/20 17:01 Last Admin: 08/21/20 17:07 Dose: 6 mg Documented by: Furosemide (Lasix) 20 mg IVPUSH NOW ONE Stop: 08/20/20 17:11 Last Admin: 08/20/20 17:52 Dose: 20 mg Documented by: Furosemide (Lasix) 20 mg IVPUSH ONETIME ONE Stop: 08/20/20 22:31 Last Admin: 08/21/20 00:21 Dose: 20 mg Documented by: Ceftriaxone Sodium 2 gm/ (Sodium Chloride) 100 mls @ 200 mls/hr IV Q24H [facility] Stop: 08/24/20 17:29 Last Admin: 08/21/20 17:07 Dose: 200 mls/hr Documented by: Azithromycin 500 mg/ Sodium (Chloride) 250 mls @ 250 mls/hr IV Q24H [facility] Stop: 08/22/20 18:59 Last Admin: 08/21/20 17:53 Dose: 250 mls/hr Documented by: - Exam General: Alert, Oriented HEENT: Pupils Equal, Mucous Membr. Moist/[place] Neck: Supple Lungs: Normal Respiratory Effort, Wheezing (Expiratory wheeze throughout both lung [place].) Cardiovascular: Irregular Rhythm (Irregular rate) GI/Abdominal Exam: Normal Bowel Sounds Extremities: Normal Inspection, No Pedal Edema, Normal Capillary Refill Skin: Warm, Dry, Intact Neurological: No New Focal Deficit Psy/Mental Status: Alert, Normal Affect, Normal Mood Sepsis Event Note - Evaluation Sepsis Screening Result: Severe Sepsis Risk - Focused Exam Vital Signs: Vital Signs Temp Pulse Pulse Resp BP BP BP 08/22/20 12:00 96.9 F 16 156/95 H 08/22/20 10:29 158/97 H 08/22/20 10:28 08/22/20 10:00 08/22/20 08:48 08/22/20 08:39 148/104 H 08/22/20 08:26 95 171/108 H 08/22/20 07:00 97.7 F 22 H 171/108 H 08/22/20 06:21 08/22/20 03:00 96.3 F L 89 16 153/107 H Pulse Ox Pulse Ox 08/22/20 12:00 97 08/22/20 10:29 96 08/22/20 10:28 95 08/22/20 10:00 93 L 08/22/20 08:48 93 L 08/22/20 08:39 92 L 08/22/20 08:26 08/22/20 07:00 91 L 08/22/20 06:21 91 L 08/22/20 03:00 92 L - Problem List & Annotations (1) COPD (chronic obstructive pulmonary disease) SNOMED Code(s): 34424010 Code(s): J44.9 - CHRONIC OBSTRUCTIVE PULMONARY DISEASE, UNSPECIFIED Status: Acute Current Visit: Yes Qualifiers: COPD type: unspecified COPD Qualified Code(s): J44.9 - Chronic obstructive pulmonary disease, unspecified (2) Pneumonia due to COVID-19 virus SNOMED Code(s): 834925359095364311 Code(s): U07.1 - COVID-19; J12.89 - OTHER VIRAL PNEUMONIA Status: Acute Current Visit: Yes (3) Renal insufficiency SNOMED Code(s): 485678761, 897717866 Code(s): N28.9 - DISORDER OF KIDNEY AND URETER, UNSPECIFIED Status: Acute Current Visit: Yes (4) Acute decompensated heart failure SNOMED Code(s): 39372669, 084024445 Code(s): I50.9 - HEART FAILURE, UNSPECIFIED Status: Acute Current Visit: No (5) Acute kidney injury SNOMED Code(s): 16965932, 94101477 Code(s): N17.9 - ACUTE KIDNEY FAILURE, UNSPECIFIED Status: Acute Current Visit: No (6) Atrial fibrillation SNOMED Code(s): 32081751 Code(s): I48.91 - UNSPECIFIED ATRIAL FIBRILLATION Status: Acute Current Visit: No (7) Chronic anticoagulation SNOMED Code(s): 734449304 Code(s): Z79.01 - HALF-WAY (CURRENT) USE OF ANTICOAGULANTS Status: Acute Current Visit: No (8) Diabetic nephropathy associated with type 2 diabetes mellitus SNOMED Code(s): 967942165, 642442945 Code(s): E11.21 - TYPE 2 DIABETES MELLITUS WITH DIABETIC NEPHROPATHY Status: Acute Current Visit: No - Problem List Review Problem List Initiated/Reviewed/Updated: Yes - My Orders Last 24 Hours: My Active Orders 08/22/20 09:00 Remove Patch 1 ea TRDERM DAILY 08/22/20 10:03 PT Evaluation and Treatment [CONS] Routine 08/22/20 15:00 Azithromycin [Zithromax] 500 mg PO ONETIME ONE cefTRIAXone [Rocephin] 2 gm Sodium Chloride 0.9% [Normal Saline] 100 ml IV ONETIME dexAMETHasone 6 mg PO Q24H 08/23/20 05:11 C-REACTIVE PROTEIN [CHEM] AM CBC WITH AUTO DIFF [HEME] AM CMP [COMPREHENSIVE METABOLIC PN,CMP] [CHEM] AM DD [D-DIMER QUANTITATIVE] [COAG] AM MAGNESIUM [CHEM] AM PHOSPHORUS [CHEM] AM 08/24/20 05:11 C-REACTIVE PROTEIN [CHEM] AM CBC WITH AUTO DIFF [HEME] AM CMP [COMPREHENSIVE METABOLIC PN,CMP] [CHEM] AM DD [D-DIMER QUANTITATIVE] [COAG] AM MAGNESIUM [CHEM] AM PHOSPHORUS [CHEM] AM - Plan Plan:: 08/20/2020 COVID-19 pneumonia History of recurrent pneumonia and bronchitis COPD 40+-pack-year history, stopped smoking 2 weeks ago. * 3 to 4-day history of cough with 1 day history of shortness of breath. Presented to the emergency department with oxygen saturations at 81% on room air. Patient does not know where he may have contracted COVID-19. He just stopped smoking 2 weeks ago and has multiple risk factors concerning for bad outcomes. * Transferred from emergency department to floor on 3 L with O2 sats in the low 90s. He quickly worsened on the floor and required 6 L to maintain Sp02 above 88%. He was then transferred to the ICU. * NEWS2 score of 8: High risk for worsening * History of 40+ pack year history of smoking. Quit 2 weeks ago. * CXR with ground glass appearance on rt side, infiltrate on left. * WBC 11.25, D-Dimer 0.44, CRP 2.8, LDH 251 (elevated), lactic acid 0.8, ferritin 115, troponin neg. Congestive heart failure with preserved ejection fraction, deteriorated Atrial fibrillation Hypertension Hyperlipidemia Echocardiogram from 06/26/2019 1. Left ventricular ejection fraction by visual estimation is 55 to 60%. 2. Normal left ventricular systolic function. 3. Mild mitral valve regurgitation. 4. The right ventricular systolic pressure is moderately elevated at 49.5 mmHg. 5. The inferior vena cava is dilated with respiratory size variation less than 50%. 6. Compared to 09/14/2018 no significant change. RVSP is measured to be in the moderate range. 7. No regional wall motion abnormalities. 8. There is moderate biatrial dilatation. * proBNP 3300 * On Lasix 40 mg p.o. twice daily at home * Patient likely has a moderate amount of fluid overload causing worsening of his oxygenation. Unfortunately, he also has worsening of his renal function making it difficult to diurese. * On Eliquis 5 mg twice daily for stroke prevention * On carvedilol 12.5 mg twice daily, losartan 100 mg daily, hydralazine 25 mg twice daily for blood pressure. Insulin-dependent diabetes * Hemoglobin A1c 9.6 in January of this year * On Lantus 48 units at bedtime, sliding scale insulin, Trulicity, and alogliptin 25 mg daily * Initial glucose 165 Acute on chronic renal insufficiency * BUN 33, creatinine 2.6, estimated GFR 25 * Remdesivir is contraindicated because of GFR less than 30 * Typical GFR around 30 Hypothyroidism * On methimazole 5 mg daily 08/21/2020 COVID-19 pneumonia Significant improvement over the evening. Oxygenation status continues to improve after getting convalescent plasma. Currently on room air. CHF, atrial fibrillation, hypertension Negative fluid balance overnight and half a kilo weight loss. Holding Lasix this morning secondary to worsening renal function. Edema improved overnight. Blood pressure worse after holding losartan. Acute on chronic renal insufficiency BUN 44, creatinine 2.7, GFR 24no significant change, slightly worse Losartan held Insulin-dependent diabetes Hemoglobin A1c 9.5 Concerned about compliance. Blood sugars significantly elevated this morning likely worsened by dexamethasone. 08/22/2020 COVID-19 pneumonia CHF, atrial fibrillation, hypertension Chronic renal insufficiency Insulin-dependent diabetes type 2 Patient continues on room air. He is continuing to feel weak, coughing productive sputum, and some mild shortness of breath. Received 2 units of convalescent plasma. Currently on dexamethasone, ceftriaxone, and azithromycin. Patient's renal function is improving. GFR 26, creatinine 2.5, BUN 58. Still not candidate for remdesivir. Blood sugars have been poorly controlled as high as just over 300. Blood pressure also poorly controlled. Holding losartan secondary to renal insufficiency. Holding furosemide. Plan * Transfer back to medical status. * FiO2 to keep SPO2 greater than 88%. Currently on room air * He is not a candidate for remdesivir secondary to his renal insufficiency. * Ceftriaxone 2 g daily for total of 5 days. Day 3 of 5. * Azithromycin 500 mg x 3 days. Day 3 of 3 * Dexamethasone 6 mg p.o. daily day 3 * Increase Lantus to 50 units at bedtime. * Increase short acting insulin, Humalog to 10 units before each meal. * Increase sliding scale insulin to medium dose. * Increase Coreg to 25 mg twice daily * Increase hydralazine to 25 mg 3 times daily * Continue Eliquis * I-S and Acapella * Albuterol 2 puffs every 4 hours as needed * COVID labs in the morning * follow blood cultures * Close monitoring of renal function and urine output. * DC [place] catheter * Daily weights * Hold losartan. * Hold Trulicity and alogliptin * Patient is at very high risk for complications and worsening of his hypoxemia. Will progress to BiPAP if needed. * Encourage pronating VTE prophylaxis with Eliquis CODE STATUS: Full code Disposition: Admit to ICU for close observation and secondary to high likelihood of worsening condition.
[2020-08-22] MEDS ORDERED: cefTRIAXone 2 GM in Sodium Chloride 0.9% 100 ML IV ONE (15:00)
[2020-08-22] MEDS ORDERED: Azithromycin 250 MG Tab PO ONE (15:00)
[2020-08-22] MEDS: Dexamethasone 4 MG Tab PO SCH (15:19)
[2020-08-22] MEDS: HYDROmorphone 0.5 MG/0.5 ML Syringe IVPUSH PRN (15:55)
[2020-08-22] MEDS: Albuterol 6.7 GM Inhaler INH PRN ×2 (18:44→21:26)
[2020-08-22] MEDS: Rosuvastatin 10 MG Tab PO SCH (20:22)
[2020-08-22] MEDS: Mirtazapine 15 MG Tab PO SCH (20:24)
[2020-08-22] MEDS: Famotidine 20 MG Tab PO SCH (20:26)
[2020-08-22] MEDS: Nortriptyline 10 MG Cap PO SCH (20:26)
[2020-08-22] MEDS ORDERED: Insulin Glarg,Human.Rec.Analog 100 Unit/ML SUBCUT SCH (21:00)
[2020-08-23] MEDS: HYDROmorphone 0.5 MG/0.5 ML Syringe IVPUSH PRN ×2 (00:34→08:48)
[2020-08-23] MEDS: hydrALAZINE 25 MG Tab PO SCH ×2 (00:55→08:46)
[2020-08-23] MEDS: Insulin Lispro 100 Units/ML 3 ML Vial SUBCUT SCH ×4 (07:48→12:41)
[2020-08-23] MEDS: Albuterol 6.7 GM Inhaler INH PRN (08:31)
[2020-08-23] MEDS: Famotidine 20 MG Tab PO SCH (08:44)
[2020-08-23] MEDS: Methimazole 5 MG Tab PO SCH (08:44)
[2020-08-23] MEDS: Sodium Bicarbonate 650 MG Tab PO SCH (08:44)
[2020-08-23] MEDS: Apixaban 5 MG Tab PO SCH (08:44)
[2020-08-23] MEDS: Polyethylene Glycol 3350 Powder 17 GM Packet PO SCH (08:45)
[2020-08-23] MEDS: Nicotine 21 MG/24 Hr Patch TRDERM SCH (08:45)
[2020-08-23] MEDS: Carvedilol 12.5 MG Tab PO SCH (08:46)
[2020-08-23] MEDS: Sodium Chloride 0.9% 10 ML Syringe FLUSH PRN (08:55)
--- NOTE | 2020-08-23 12:18 | PCM.DCSUM1 ---
Discharge Summary - Hospital Course HPI Initial Comments: 64-year-old male with multiple medical problems including diabetes, atrial fibrillation, congestive heart failure, hypertension, COPD, recurrent pneumonia, and chronic renal insufficiency presents to the emergency department with a 3 to 4-day history of fatigue and cough. Patient states that yesterday he started getting short of breath which prompted today's visit to the emergency department. Patient quit smoking approximately 2 weeks ago when he was in the ER with chest pain and a rule out MS. He did have an elevated troponin at that time. Patient left from the emergency department because he did not want to stay. Patient denies any nausea, vomiting, diarrhea, or abdominal pain. He does state he has very little taste, he does note he tastes weakness. On presentation to the emergency department his pulse ox was 81% on room air, blood pressure was 201/100, temperature 99.8, heart rate 108, respiratory rate of 32. EKG demonstrated A. fib with a ventricular rate of 117 bpm. Initial labs showed a white count of 11.25, hemoglobin 12.8 which is significantly less than when he was in the ER on 08/06/2020 of 15, platelet count 164. CRP 2.8, d-dimer 0.44, proBNP 3336, LDH 251, troponin 0 0.037 ABG: pH 7.41, PCO2 40.7, PO2 72.0, bicarb 25.5 on 2 L nasal cannula. Sodium 139, potassium 4.4, BUN 33, creatinine 2.6, estimated GFR 25, glucose 165. Albumin 3.5, calcium 8.8 COVID-19 pneumonia History of recurrent pneumonia and bronchitis COPD 40+-pack-year history, stopped smoking 2 weeks ago. * 3 to 4-day history of cough with 1 day history of shortness of breath. Presented to the emergency department with oxygen saturations at 81% on room air. Patient does not know where he may have contracted COVID-19. He just stopped smoking 2 weeks ago and has multiple risk factors concerning for bad outcomes. * Transferred from emergency department to floor on 3 L with O2 sats in the low 90s. He quickly worsened on the floor and required 6 L to maintain Sp02 above 88%. He was then transferred to the ICU. * NEWS2 score of 8: High risk for worsening * History of 40+ pack year history of smoking. Quit 2 weeks ago. * CXR with ground glass appearance on rt side, infiltrate on left. * WBC 11.25, D-Dimer 0.44, CRP 2.8, LDH 251 (elevated), lactic acid 0.8, ferritin 115, troponin neg. Congestive heart failure with preserved ejection fraction, deteriorated Atrial fibrillation Hypertension Hyperlipidemia Echocardiogram from 06/26/2019 1. Left ventricular ejection fraction by visual estimation is 55 to 60%. 2. Normal left ventricular systolic function. 3. Mild mitral valve regurgitation. 4. The right ventricular systolic pressure is moderately elevated at 49.5 mmHg. 5. The inferior vena cava is dilated with respiratory size variation less than 50%. 6. Compared to 09/14/2018 no significant change. RVSP is measured to be in the moderate range. 7. No regional wall motion abnormalities. 8. There is moderate biatrial dilatation. * proBNP 3300 * On Lasix 40 mg p.o. twice daily at home * Patient likely has a moderate amount of fluid overload causing worsening of his oxygenation. Unfortunately, he also has worsening of his renal function making it difficult to diurese. * On Eliquis 5 mg twice daily for stroke prevention * On carvedilol 12.5 mg twice daily, losartan 100 mg daily, hydralazine 25 mg twice daily for blood pressure. Insulin-dependent diabetes * Hemoglobin A1c 9.6 in January of this year * On Lantus 48 units at bedtime, sliding scale insulin, Trulicity, and alogliptin 25 mg daily * Initial glucose 165 Acute on chronic renal insufficiency * BUN 33, creatinine 2.6, estimated GFR 25 * Remdesivir is contraindicated because of GFR less than 30 * Typical GFR around 30 Hypothyroidism * On methimazole 5 mg daily Plan * Move patient to ICU for worsening hypoxemia and shortness of breath. * FiO2 to keep SPO2 greater than 84%. * Currently we do not have high flow nasal cannula available because of utilization by other patients. * He is not a candidate for him to severe secondary to his renal insufficiency. * 2 units convalescent plasma * Dexamethasone 6 mg p.o. daily x10 days * I-S and Acapella * Albuterol 2 puffs every 4 hours as needed * Gentle diuresis * procalcitonin * Hemoglobin A1c, TSH, and daily COVID labs in the morning * follow blood cultures * Close monitoring of renal function and urine output. * Olmedo catheter for strict I's and O's * Daily weights * Continue carvedilol and hydralazine. * Hold losartan. * Decrease Lantus to 40 units at bedtime secondary to likely decrease in appetite * Fingerstick blood sugar q. before meals and nightly * Sliding scale insulin * Hold Trulicity and alogliptin * Continue Eliquis * Patient is at very high risk for complications and worsening of his hypoxemia. Will progress to BiPAP if needed. Tried to prevent intubation if at all possible. * Encourage pronating VTE prophylaxis with Eliquis CODE STATUS: Full code Disposition: Admit to ICU for close observation and secondary to high likelihood of worsening condition. Diagnosis: Stroke: No - Discharge Data Discharge Date: 08/23/20 Discharge Disposition: Home, Self-Care 01 Condition: Good - Referral to Home Health Primary Care Physician: Mell Flood MD - Discharge Diagnosis/Problem(s) (1) COPD (chronic obstructive pulmonary disease) SNOMED Code(s): 74291986 ICD Code: J44.9 - CHRONIC OBSTRUCTIVE PULMONARY DISEASE, UNSPECIFIED Status: Acute Current Visit: Yes Qualifiers: COPD type: unspecified COPD Qualified Code(s): J44.9 - Chronic obstructive pulmonary disease, unspecified (2) Pneumonia due to COVID-19 virus SNOMED Code(s): 122528735627923517 ICD Code: U07.1 - COVID-19; J12.89 - OTHER VIRAL PNEUMONIA Status: Acute Current Visit: Yes (3) Renal insufficiency SNOMED Code(s): 386572516, 095008916 ICD Code: N28.9 - DISORDER OF KIDNEY AND URETER, UNSPECIFIED Status: Acute Current Visit: Yes (4) Acute decompensated heart failure SNOMED Code(s): 71875553, 616985508 ICD Code: I50.9 - HEART FAILURE, UNSPECIFIED Status: Acute Current Visit: No (5) Acute kidney injury SNOMED Code(s): 03802678, 82416309 ICD Code: N17.9 - ACUTE KIDNEY FAILURE, UNSPECIFIED Status: Acute Current Visit: No (6) Atrial fibrillation SNOMED Code(s): 41218229 ICD Code: I48.91 - UNSPECIFIED ATRIAL FIBRILLATION Status: Acute Current Visit: No (7) Chronic anticoagulation SNOMED Code(s): 339450744 ICD Code: Z79.01 - CERTIFIED TOWER CLIMBER (CURRENT) USE OF ANTICOAGULANTS Status: Acute Current Visit: No (8) Diabetic nephropathy associated with type 2 diabetes mellitus SNOMED Code(s): 737486634, 421900317 ICD Code: E11.21 - TYPE 2 DIABETES MELLITUS WITH DIABETIC NEPHROPATHY Status: Acute Current Visit: No - Patient Summary/Data Consults: Consultations 08/22/20 10:03 PT Evaluation and Treatment [CONS] Routine Hospital Course: COVID-19 pneumonia History of recurrent pneumonia and bronchitis COPD 40+-pack-year history, stopped smoking 2 weeks ago. * 3 to 4-day history of cough with 1 day history of shortness of breath. Presented to the emergency department with oxygen saturations at 81% on room air. Patient does not know where he may have contracted COVID-19. He just stopped smoking 2 weeks ago and has multiple risk factors concerning for bad outcomes. * Transferred from emergency department to floor on 3 L with O2 sats in the low 90s. He quickly worsened on the floor and required 6 L to maintain Sp02 above 88%. He was then transferred to the ICU. * NEWS2 score of 8: High risk for worsening * History of 40+ pack year history of smoking. Quit 2 weeks ago. * CXR with ground glass appearance on rt side, infiltrate on left. * WBC 11.25, D-Dimer 0.44, CRP 2.8, LDH 251 (elevated), lactic acid 0.8, ferritin 115, troponin neg. Congestive heart failure with preserved ejection fraction, deteriorated Atrial fibrillation Hypertension Hyperlipidemia Echocardiogram from 06/26/2019 1. Left ventricular ejection fraction by visual estimation is 55 to 60%. 2. Normal left ventricular systolic function. 3. Mild mitral valve regurgitation. 4. The right ventricular systolic pressure is moderately elevated at 49.5 mmHg. 5. The inferior vena cava is dilated with respiratory size variation less than 50%. 6. Compared to 09/14/2018 no significant change. RVSP is measured to be in the moderate range. 7. No regional wall motion abnormalities. 8. There is moderate biatrial dilatation. * proBNP 3300 * On Lasix 40 mg p.o. twice daily at home * Patient likely has a moderate amount of fluid overload causing worsening of his oxygenation. Unfortunately, he also has worsening of his renal function making it difficult to diurese. * On Eliquis 5 mg twice daily for stroke prevention * On carvedilol 12.5 mg twice daily, losartan 100 mg daily, hydralazine 25 mg twice daily for blood pressure. Insulin-dependent diabetes * Hemoglobin A1c 9.6 in January of this year * On Lantus 48 units at bedtime, sliding scale insulin, Trulicity, and alogliptin 25 mg daily * Initial glucose 165 Acute on chronic renal insufficiency * BUN 33, creatinine 2.6, estimated GFR 25 * Remdesivir is contraindicated because of GFR less than 30 * Typical GFR around 30 Hypothyroidism * On methimazole 5 mg daily 08/21/2020 COVID-19 pneumonia Significant improvement over the evening. Oxygenation status continues to improve after getting convalescent plasma. Currently on room air. CHF, atrial fibrillation, hypertension Negative fluid balance overnight and half a kilo weight loss. Holding Lasix this morning secondary to worsening renal function. Edema improved overnight. Blood pressure worse after holding losartan. Acute on chronic renal insufficiency BUN 44, creatinine 2.7, GFR 24no significant change, slightly worse Losartan held Insulin-dependent diabetes Hemoglobin A1c 9.5 Concerned about compliance. Blood sugars significantly elevated this morning likely worsened by dexamethasone. 08/22/2020 COVID-19 pneumonia CHF, atrial fibrillation, hypertension Chronic renal insufficiency Insulin-dependent diabetes type 2 Patient continues on room air. He is continuing to feel weak, coughing productive sputum, and some mild shortness of breath. Received 2 units of convalescent plasma. Currently on dexamethasone, ceftriaxone, and azithromycin. Patient's renal function is improving. GFR 26, creatinine 2.5, BUN 58. Still not candidate for remdesivir. Blood sugars have been poorly controlled as high as just over 300. Blood pressure also poorly controlled. Holding losartan secondary to renal insufficiency. Holding furosemide. 08/23/2020 Patient continues off of supplemental oxygen. Kidney function has improved slightly to GFR 28 and creatinine of 2.4. Blood pressure continues to be poorly controlled. He is off of his losartan, but can now come back on it with his improving creatinine clearance. He will need to follow-up with his primary care provider. Blood sugars are also poorly controlled, his hemoglobin A1c is 9.5, and his blood sugars in the hospital have been poorly controlled. He has been on dexamethasone which will worsen his blood sugars. Patient will not go home on dexamethasone because of the risk of worsening blood sugars and recommendations are not to continue at discharge. He continues off of furosemide. He can take this based on weight gain or as prescribed by his primary care provider. He also continues to have myalgias secondary to a viral illness. Oxycodone 5 mg total of 10 tablets were sent to the pharmacy. - Patient Instructions Diet: Diabetic Diet Activity: As Tolerated Driving: May Drive Today Showering/Bathing: May Shower Notify Provider of: Fever, Nausea and/or Vomiting Other/Special Instructions: Follow-up with the [facility] department in regards to your isolated status. If you do not hear from them stay isolated at least another 9 days. Please get a pulse oximetry as soon as possible. If you her oxygenation drops below 92 please return to the emergency department. Monitor your blood sugars and blood pressure closely over the next few days. Follow-up with your primary care provider when you are out of quarantine. - Discharge Plan *PRESCRIPTION DRUG MONITORING PROGRAM REVIEWED*: No *COPY OF PRESCRIPTION DRUG MONITORING REPORT IN PATIENT SHELTON: No Prescriptions/Med Rec: hydrALAZINE [Apresoline] 25 mg PO Q6H #120 tablet carvediloL [Coreg] 25 mg PO BID #120 tablet Insulin Lispro [HumaLOG] 10 unit SUBCUT TIDPC #1 vial oxyCODONE 10 mg PO Q4H PRN #10 tablet PRN Reason: Pain (Moderate 4-6) Famotidine [Pepcid] 20 mg PO BID #60 tablet Home Medications: Home Meds Losartan [Cozaar] 100 mg PO DAILY tablet 05/23/19 [Rx] Dulaglutide [Trulicity] 1.5 mg SQ SA 06/26/19 [History] Furosemide [Lasix] 40 mg PO BID #60 tab 06/27/19 [Rx] Apixaban [Eliquis] 5 mg PO BID 11/27/19 [History] Diclofenac Sodium [Voltaren 1% Gel] 4 gram TOP QID PRN 11/27/19 [History] Multivitamin [Daily Multiple Vitamin] 1 tab PO DAILY 11/27/19 [History] Sodium Bicarbonate 650 mg PO BID 11/27/19 [History] Albuterol Sulfate [Proventil Hfa] 2 puff INH Q4H PRN 02/07/20 [History] Alogliptin Benzoate [Alogliptin] 25 mg PO DAILY 02/07/20 [History] Mirtazapine 45 mg PO BEDTIME 03/19/20 [History] Nortriptyline 20 mg PO BEDTIME 02/07/20 [History] Rosuvastatin Calcium 20 mg PO BEDTIME 02/07/20 [History] methIMAzole [Tapazole] 5 mg PO DAILY 02/07/20 [History] hydrALAZINE [Apresoline] 25 mg PO BID 08/06/20 [History] Famotidine [Pepcid] 20 mg PO BID #60 tablet 08/23/20 [Rx] Insulin Glarg,Human.Rec.Analog [Lantus] 50 unit SUBCUT BEDTIME ml 08/23/20 [Rx] Insulin Lispro [HumaLOG] 10 unit SUBCUT TIDPC #1 vial 08/23/20 [Rx] Nicotine [Habitrol] 21 mg TRDERM DAILY patch 08/23/20 [Rx] carvediloL [Coreg] 25 mg PO BID #120 tablet 08/23/20 [Rx] hydrALAZINE [Apresoline] 25 mg PO Q6H #120 tablet 08/23/20 [Rx] oxyCODONE 10 mg PO Q4H PRN #10 tablet 08/23/20 [Rx] Oxygen Therapy Mode: Room Air Patient Handouts: Heart Failure Action Plan, Steps to Quit Smoking Forms: ED Department Discharge Referrals: Mell Flood MD [Primary Care Provider] - - Discharge Summary/Plan Comment DC Time >30 min.: Yes Discharge Summary/Plan Comment: Follow-up with your primary care provider. Your insulin was adjusted. Your long-acting insulin, Lantus, was increased to 50 units a day and your short acting insulin was increased to 10 units with each meal. If you develop any worsening symptoms return the emergency department. - General Info Date of Service: 08/23/20 Admission Dx/Problem (Free Text: Admission Diagnosis/Problem Admission Diagnosis/Problem Pneumonia Subjective Update: Feeling much better today. Appetite is good. Functional Status: Reports: Pain Controlled - Review of Systems General: Reports: No Symptoms HEENT: Reports: No Symptoms Pulmonary: Reports: Shortness of Breath, Cough Cardiovascular: Reports: No Symptoms Gastrointestinal: Reports: No Symptoms Musculoskeletal: Reports: Back Pain, Leg Pain, Joint Pain Skin: Reports: No Symptoms Neurological: Reports: No Symptoms - Patient Data Vitals - Most Recent: Last Vital Signs Temp 96.9 F 08/23/20 11:36 Pulse 92 08/23/20 08:46 Resp 20 08/23/20 11:36 BP 171/111 H 08/23/20 11:36 Pulse Ox 94 L 08/23/20 11:36 Weight - Most Recent: 110.994 kg I&O - Last 24 hours: Intake & Output 08/22/20 08/23/20 08/23/20 22:59 06:59 14:59 Intake Total 2460 240 Balance 2460 240 Lab Results - Last 24 hrs: Laboratory Results - last 24 hr 08/22/20 08/22/20 08/22/20 Range/Units 18:09 20:37 21:29 WBC (4.23-9.07) K/mm3 RBC (4.63-6.08) M/mm3 Hgb (13.7-17.5) gm/dl Hct (40.1-51.0) % MCV (79.0-92.2) fl MCH (25.7-32.2) pg MCHC (32.2-35.5) g/dl RDW Std Deviation (35.1-43.9) fL Plt Count (163-337) K/mm3 MPV (9.4-12.3) fl Neut % (Auto) (34.0-67.9) % Lymph % (Auto) (21.8-53.1) % Arthur % (Auto) (5.3-12.2) % Eos % (Auto) (0.8-7.0) Baso % (Auto) (0.1-1.2) % Neut # (Auto) (1.78-5.38) K/mm3 Lymph # (Auto) (1.32-3.57) K/mm3 Arthur # (Auto) (0.30-0.82) K/mm3 Eos # (Auto) (0.04-0.54) K/mm3 Baso # (Auto) (0.01-0.08) K/mm3 Manual Slide Review D-Dimer, Quantitative (0.19-0.50) mg/L Sodium (136-145) mEq/L Potassium (3.5-5.1) mEq/L Chloride (98-107) mEq/L Carbon Dioxide (21-32) mEq/L Anion Gap (5-15) BUN (7-18) mg/dL Creatinine (0.7-1.3) mg/dL Est Cr Clr Drug Dosing mL/min Estimated GFR (MDRD) (>60) mL/min BUN/Creatinine Ratio (14-18) Glucose (80-115) mg/dL POC Glucose 206 H 201 H 214 H (80-115) mg/dL Calcium (8.5-10.1) mg/dL Phosphorus (2.6-4.7) mg/dL Magnesium (1.8-2.4) mg/dl Total Bilirubin (0.2-1.0) mg/dL AST (15-37) U/L ALT (16-63) U/L Alkaline Phosphatase (46-116) U/L C-Reactive Protein (<1.0) mg/dL Total Protein (6.4-8.2) g/dl Albumin (3.4-5.0) g/dl Globulin gm/dL Albumin/Globulin Ratio (1-2) 08/23/20 08/23/20 08/23/20 Range/Units 04:45 04:45 04:45 WBC 14.15 H (4.23-9.07) K/mm3 RBC 3.73 L (4.63-6.08) M/mm3 Hgb 11.6 L (13.7-17.5) gm/dl Hct 37.8 L (40.1-51.0) % MCV 101.3 H (79.0-92.2) fl MCH 31.1 (25.7-32.2) pg MCHC 30.7 L (32.2-35.5) g/dl RDW Std Deviation 55.3 H (35.1-43.9) fL Plt Count 171 (163-337) K/mm3 MPV 11.8 (9.4-12.3) fl Neut % (Auto) 86.0 H (34.0-67.9) % Lymph % (Auto) 6.1 L (21.8-53.1) % Arthur % (Auto) 6.8 (5.3-12.2) % Eos % (Auto) 0.1 L (0.8-7.0) Baso % (Auto) 0.1 (0.1-1.2) % Neut # (Auto) 12.18 H (1.78-5.38) K/mm3 Lymph # (Auto) 0.86 L (1.32-3.57) K/mm3 Arthur # (Auto) 0.96 H (0.30-0.82) K/mm3 Eos # (Auto) 0.01 L (0.04-0.54) K/mm3 Baso # (Auto) 0.01 (0.01-0.08) K/mm3 Manual Slide Review Abnormal smear D-Dimer, Quantitative 0.35 (0.19-0.50) mg/L Sodium 141 (136-145) mEq/L Potassium 5.2 H (3.5-5.1) mEq/L Chloride 106 (98-107) mEq/L Carbon Dioxide 27 (21-32) mEq/L Anion Gap 13.2 (5-15) BUN 60 H (7-18) mg/dL Creatinine 2.4 H (0.7-1.3) mg/dL Est Cr Clr Drug Dosing 32.95 mL/min Estimated GFR (MDRD) 28 (>60) mL/min BUN/Creatinine Ratio 25.0 H (14-18) Glucose 298 H (80-115) mg/dL POC Glucose (80-115) mg/dL Calcium 8.3 L (8.5-10.1) mg/dL Phosphorus 3.9 (2.6-4.7) mg/dL Magnesium 2.9 H (1.8-2.4) mg/dl Total Bilirubin 0.3 (0.2-1.0) mg/dL AST 37 (15-37) U/L ALT 47 (16-63) U/L Alkaline Phosphatase 95 (46-116) U/L C-Reactive Protein 2.1 H* (<1.0) mg/dL Total Protein 6.9 (6.4-8.2) g/dl Albumin 3.0 L (3.4-5.0) g/dl Globulin 3.9 gm/dL Albumin/Globulin Ratio 0.8 L (1-2) 08/23/20 08/23/20 Range/Units 07:43 11:44 WBC (4.23-9.07) K/mm3 RBC (4.63-6.08) M/mm3 Hgb (13.7-17.5) gm/dl Hct (40.1-51.0) % MCV (79.0-92.2) fl MCH (25.7-32.2) pg MCHC (32.2-35.5) g/dl RDW Std Deviation (35.1-43.9) fL Plt Count (163-337) K/mm3 MPV (9.4-12.3) fl Neut % (Auto) (34.0-67.9) % Lymph % (Auto) (21.8-53.1) % Arthur % (Auto) (5.3-12.2) % Eos % (Auto) (0.8-7.0) Baso % (Auto) (0.1-1.2) % Neut # (Auto) (1.78-5.38) K/mm3 Lymph # (Auto) (1.32-3.57) K/mm3 Arthur # (Auto) (0.30-0.82) K/mm3 Eos # (Auto) (0.04-0.54) K/mm3 Baso # (Auto) (0.01-0.08) K/mm3 Manual Slide Review D-Dimer, Quantitative (0.19-0.50) mg/L Sodium (136-145) mEq/L Potassium (3.5-5.1) mEq/L Chloride (98-107) mEq/L Carbon Dioxide (21-32) mEq/L Anion Gap (5-15) BUN (7-18) mg/dL Creatinine (0.7-1.3) mg/dL Est Cr Clr Drug Dosing mL/min Estimated GFR (MDRD) (>60) mL/min BUN/Creatinine Ratio (14-18) Glucose (80-115) mg/dL POC Glucose 278 H 244 H (80-115) mg/dL Calcium (8.5-10.1) mg/dL Phosphorus (2.6-4.7) mg/dL Magnesium (1.8-2.4) mg/dl Total Bilirubin (0.2-1.0) mg/dL AST (15-37) U/L ALT (16-63) U/L Alkaline Phosphatase (46-116) U/L C-Reactive Protein (<1.0) mg/dL Total Protein (6.4-8.2) g/dl Albumin (3.4-5.0) g/dl Globulin gm/dL Albumin/Globulin Ratio (1-2) MANINDER Results - Last 24 hrs: Microbiology 08/20/20 09:20 Aerobic Blood Culture - Preliminary Blood - Venous - Lab Draw NO GROWTH AFTER 3 DAYS Anaerobic Blood Culture - Preliminary NO GROWTH AFTER 3 DAYS 08/20/20 09:12 Aerobic Blood Culture - Preliminary Blood - Venous NO GROWTH AFTER 3 DAYS Anaerobic Blood Culture - Preliminary NO GROWTH AFTER 3 DAYS Med Orders - Current: Current Medications Acetaminophen (Tylenol) 650 mg PO Q4H PRN PRN Reason: Fever Greater Than 101 Albuterol (Proventil Hfa) 0 gm INH Q4H PRN PRN Reason: Shortness of Breath Last Admin: 08/23/20 08:31 Dose: 2 puff Documented by: Apixaban (Eliquis) 5 mg PO BID [facility] Last Admin: 08/23/20 08:44 Dose: 5 mg Documented by: Carvedilol (Coreg) 25 mg PO BID [facility] Last Admin: 08/23/20 08:46 Dose: 25 mg Documented by: Dexamethasone (Dexamethasone) 6 mg PO Q24H [facility] Stop: 08/29/20 15:01 Last Admin: 08/22/20 15:19 Dose: 6 mg Documented by: Dextrose/Water (Dextrose 50% In Water) 50 ml IVPUSH ASDIRECTED PRN PRN Reason: Hypoglycemia Famotidine (Pepcid) 20 mg PO BID [facility] Last Admin: 08/23/20 08:44 Dose: 20 mg Documented by: Hydralazine HCl (Apresoline) 25 mg PO Q8H [facility] Last Admin: 08/23/20 08:46 Dose: 25 mg Documented by: Hydromorphone HCl (Dilaudid) 0.5 mg IVPUSH Q2H PRN PRN Reason: Pain (severe 7-10) Last Admin: 08/23/20 08:48 Dose: 0.5 mg Documented by: Sodium Chloride (Normal Saline) 250 mls @ 100 mls/hr IV ASDIRECTED [facility] Last Admin: 08/20/20 20:30 Dose: 100 mls/hr Documented by: Insulin Glargine (Lantus) 50 unit SUBCUT BEDTIME [facility] Last Admin: 08/22/20 20:38 Dose: 50 unit Documented by: Insulin Human Lispro (Humalog) 0 unit SUBCUT QIDACANDBED [facility]; Protocol Last Admin: 08/23/20 11:44 Dose: 4 unit Documented by: Insulin Human Lispro (Humalog) 10 unit SUBCUT TIDPC [facility] Last Admin: 08/23/20 08:47 Dose: 10 units Documented by: Methimazole (Methimazole) 5 mg PO DAILY [facility] Last Admin: 08/23/20 08:44 Dose: 5 mg Documented by: Mirtazapine (Remeron) 45 mg PO BEDTIME [facility] Last Admin: 08/22/20 20:24 Dose: 45 mg Documented by: Miscellaneous Information (Remove Patch) 1 ea TRDERM DAILY [facility] Last Admin: 08/23/20 08:45 Dose: Not Given Documented by: Nicotine (Habitrol) 21 mg TRDERM DAILY [facility] Last Admin: 08/23/20 08:45 Dose: Not Given Documented by: Nortriptyline HCl (Nortriptyline) 20 mg PO BEDTIME [facility] Last Admin: 08/22/20 20:26 Dose: 20 mg Documented by: Ondansetron HCl (Zofran) 4 mg IV Q4H PRN PRN Reason: Nausea/Vomiting Oxycodone HCl (Oxycodone) 10 mg PO Q4H PRN PRN Reason: Pain (moderate 4-6) Last Admin: 08/22/20 20:26 Dose: 10 mg Documented by: Polyethylene Glycol (Miralax) 17 gm PO DAILY [facility] Last Admin: 08/23/20 08:45 Dose: Not Given Documented by: Rosuvastatin Calcium (Crestor) 20 mg PO BEDTIME [facility] Last Admin: 08/22/20 20:22 Dose: 20 mg Documented by: Senna/Docusate Sodium (Senna Plus) 1 tab PO BID PRN PRN Reason: Constipation Last Admin: 08/23/20 08:44 Dose: 1 tab Documented by: Sodium Bicarbonate (Sodium Bicarbonate) 650 mg PO BID [facility] Last Admin: 08/23/20 08:44 Dose: 650 mg Documented by: Sodium Chloride (Saline Flush) 10 ml FLUSH ASDIRECTED PRN PRN Reason: Keep Vein Open Last Admin: 08/23/20 08:55 Dose: 10 ml Documented by: Discontinued Medications Acetaminophen (Tylenol) 975 mg PO NOW ONE Stop: 08/20/20 09:24 Last Admin: 08/20/20 09:50 Dose: 975 mg Documented by: Azithromycin (Zithromax) 500 mg PO ONETIME ONE Stop: 10/02/20 15:01 Last Admin: 08/22/20 15:19 Dose: 500 mg Documented by: Carvedilol (Coreg) 12.5 mg PO BID [facility] Last Admin: 08/22/20 08:26 Dose: 12.5 mg Documented by: Dexamethasone (Dexamethasone) 6 mg PO Q24H [facility] Stop: 08/29/20 17:01 Last Admin: 08/21/20 17:07 Dose: 6 mg Documented by: Furosemide (Lasix) 20 mg IVPUSH NOW ONE Stop: 08/20/20 17:11 Last Admin: 08/20/20 17:52 Dose: 20 mg Documented by: Furosemide (Lasix) 20 mg IVPUSH ONETIME ONE Stop: 08/20/20 22:31 Last Admin: 08/21/20 00:21 Dose: 20 mg Documented by: Hydralazine HCl (Apresoline) 25 mg PO BID [facility] Last Admin: 08/22/20 08:26 Dose: 25 mg Documented by: Ceftriaxone Sodium 2 gm/ (Sodium Chloride) 100 mls @ 200 mls/hr IV Q24H [facility] Stop: 08/24/20 17:29 Last Admin: 08/21/20 17:07 Dose: 200 mls/hr Documented by: Azithromycin 500 mg/ Sodium (Chloride) 250 mls @ 250 mls/hr IV Q24H [facility] [place] Stop: 08/22/20 18:59 Last Admin: 08/21/20 17:53 Dose: 250 mls/hr Documented by: Ceftriaxone Sodium 2 gm/ (Sodium Chloride) 100 mls @ 200 mls/hr IV ONETIME ONE Stop: 08/22/20 15:29 Last Admin: 08/22/20 15:20 Dose: 200 mls/hr Documented by: Insulin Glargine (Lantus) 40 unit SUBCUT BEDTIME [facility] [place] Last Admin: 08/21/20 20:58 Dose: 40 units Documented by: Insulin Human Lispro (Humalog) 0 unit SUBCUT QIDACANDBED [facility] [place]; Protocol Last Admin: 08/22/20 11:28 Dose: 8 unit Documented by: Insulin Human Lispro (Humalog) 8 unit SUBCUT TIDPC [facility] [place] Last Admin: 08/22/20 13:46 Dose: 8 units Documented by: - Exam Quality Assessment: Denies: Supplemental Oxygen General: Reports: Alert, Oriented HEENT: Reports: Pupils Equal, Mucous Membr. Moist/[place] Neck: Reports: Supple Lungs: Reports: Clear to Auscultation, Normal Respiratory Effort Cardiovascular: Reports: Regular Rate, Regular Rhythm GI/Abdominal Exam: Normal Bowel Sounds, Soft, Non-Tender, No Distention, No Abnormal Bruit Extremities: Normal Inspection, Normal Range of Motion, Non-Tender, No Pedal Edema, Normal Capillary Refill Skin: Reports: Warm, Dry, Intact Psy/Mental Status: Reports: Alert, Normal Affect, Normal Mood
[2020-08-23] MEDS: Dexamethasone 4 MG Tab PO SCH (16:20)
== END 2020-08-23 13:35 | disposition home or self-care (01) | DRG 177 ==
LOC: JD.ED 08:06 → JD.MS 14:01 → JD.ICU 17:32
PROVIDERS: ADMIT Family Medicine; ATTEND Family Medicine
PROC: 8E0ZXY6 Isolation (ICD-10-PCS; principal; 2020-08-20)
PROC: XW13325 Transfusion of Convalescent Plasma (Nonautologous) into Peripheral Vein, Percutaneous Approach, New Technology Group 5 (ICD-10-PCS; 2020-08-20)
PROC: XW13325 Transfusion of Convalescent Plasma (Nonautologous) into Peripheral Vein, Percutaneous Approach, New Technology Group 5 (ICD-10-PCS; 2020-08-21)
DX: U07.1 COVID-19 (principal); J12.89 Other viral pneumonia; I50.31 Acute diastolic (congestive) heart failure; N17.9 Acute kidney failure, unspecified; J44.9 Chronic obstructive pulmonary disease, unspecified; J44.0 Chronic obstructive pulmonary disease with (acute) lower respiratory infection; E03.9 Hypothyroidism, unspecified; I48.91 Unspecified atrial fibrillation; I50.9 Heart failure, unspecified; E11.21 Type 2 diabetes mellitus with diabetic nephropathy; E78.5 Hyperlipidemia, unspecified; E78.00 Pure hypercholesterolemia, unspecified; Z87.01 Personal history of pneumonia (recurrent); G47.30 Sleep apnea, unspecified; K21.9 Gastro-esophageal reflux disease without esophagitis; K57.90 Diverticulosis of intestine, part unspecified, without perforation or abscess without bleeding; I13.0 Hypertensive heart and chronic kidney disease with heart failure and stage 1 through stage 4 chronic kidney disease, or unspecified chronic kidney disease; E11.22 Type 2 diabetes mellitus with diabetic chronic kidney disease; N18.9 Chronic kidney disease, unspecified; E11.40 Type 2 diabetes mellitus with diabetic neuropathy, unspecified; M19.90 Unspecified osteoarthritis, unspecified site; Z85.46 Personal history of malignant neoplasm of prostate; F32.9 Major depressive disorder, single episode, unspecified; F41.9 Anxiety disorder, unspecified; E66.9 Obesity, unspecified; Z87.891 Personal history of nicotine dependence; Z98.890 Other specified postprocedural states; Z88.0 Allergy status to penicillin; Z88.2 Allergy status to sulfonamides; Z79.01 Long term (current) use of anticoagulants; Z79.4 Long term (current) use of insulin; Z79.899 Other long term (current) drug therapy
CPT/HCPCS: 36415; 36600; 71045; 80053; 82728; 82803; 83605; 83615; 83880; 84145; 84484; 85025; 85379; 86140; 86900; 86901; 87040 ×2; 87635; 93005; 99285; A9270; 36430; 51702; 82962; 83036; 83735; 84100; 84443; 85384; 93010; 94640; 94660; 94667; 94668; 97161-GP; 99223; 99233; 99239; J0456; J0696; J1170; J1815-GY; J7050; J8540; P9017; U0002

== ENCOUNTER 2020-08-24 10:34 | Inpatient (IN) | payer OTHER ==
--- NOTE | 2020-08-24 11:13 | EDM.PDOC ---
ED HPI GENERAL MEDICAL PROBLEM - General Chief Complaint: Respiratory Problem Stated Complaint: COVID + SOB Time Seen by Provider: 08/24/20 11:12 - History of Present Illness INITIAL COMMENTS - FREE TEXT/NARRATIVE: 64-year-old male returns to the emergency room after being discharged from the hospital yesterday. Patient has COVID. Yesterday the patient was doing well today he has increasing shortness of breath. Patient denies fevers he just says he is not breathing as good as he did yesterday. He has some mild chest discomfort and a mild cough. However when I hear him cough it is much more than mild. Patient is not having any nausea or vomiting at this point. He says he just cannot breathe. Generalized Pain Score (Numeric/FACES): 6 - Related Data Allergies Allergy/AdvReac Type Severity Reaction Status Date / Time Penicillins Allergy Mild Hives Verified 08/24/20 13:08 Sulfa (Sulfonamide Allergy Mild Hives Verified 08/24/20 13:08 Antibiotics) Home Meds: Home Meds Losartan [Cozaar] 100 mg PO DAILY tablet 05/23/19 [Rx] Dulaglutide [Trulicity] 1.5 mg SQ SA 06/26/19 [History] Furosemide [Lasix] 40 mg PO BID #60 tab 06/27/19 [Rx] Apixaban [Eliquis] 5 mg PO BID 11/27/19 [History] Diclofenac Sodium [Voltaren 1% Gel] 4 gram TOP QID PRN 11/27/19 [History] Multivitamin [Daily Multiple Vitamin] 1 tab PO DAILY 11/27/19 [History] Sodium Bicarbonate 650 mg PO BID 11/27/19 [History] Albuterol Sulfate [Proventil Hfa] 2 puff INH Q4H PRN 02/07/20 [History] Alogliptin Benzoate [Alogliptin] 25 mg PO DAILY 02/07/20 [History] Mirtazapine 45 mg PO BEDTIME 02/07/20 [History] Nortriptyline 20 mg PO BEDTIME 02/07/20 [History] Rosuvastatin Calcium 20 mg PO BEDTIME 02/07/20 [History] methIMAzole [Tapazole] 5 mg PO DAILY 02/07/20 [History] hydrALAZINE [Apresoline] 25 mg PO BID 08/06/20 [History] Famotidine [Pepcid] 20 mg PO BID #60 tablet 08/23/20 [Rx] Insulin Glarg,Human.Rec.Analog [Lantus] 50 unit SUBCUT BEDTIME ml 08/23/20 [Rx] Insulin Lispro [HumaLOG] 10 unit SUBCUT TIDPC #1 vial 08/23/20 [Rx] Nicotine [Habitrol] 21 mg TRDERM DAILY patch 08/23/20 [Rx] carvediloL [Coreg] 25 mg PO BID #120 tablet 08/23/20 [Rx] oxyCODONE 10 mg PO Q4H PRN #10 tablet 08/23/20 [Rx] Past Medical History HEENT History: Reports: Glaucoma, Hard of Hearing, Impaired Vision, Sinusitis Other HEENT History: wears eyeglasses for driving only Cardiovascular History: Reports: Afib, Heart Failure, High Cholesterol, Hypertension, SOB on Exertion Respiratory History: Reports: Bronchitis, Recurrent, COPD, Pneumonia, Recurrent, Sleep Apnea Other Respiratory History: hypoxemic respiratory failure Gastrointestinal History: Reports: Diverticulosis, GERD Genitourinary History: Reports: Chronic Renal Insuffiency, Diabetic Nephropathy Other Genitourinary History: Hx of prostate cancer. CNA GNA History: Reports: None Musculoskeletal History: Reports: Arthritis Neurological History: Reports: Migraines Psychiatric History: Reports: Anxiety, Depression Endocrine/Metabolic History: Reports: Diabetes, Type II, Obesity/BMI 30+ Other Endocrine/Metabolic History: graves Hematologic History: Reports: None Immunologic History: Reports: None Oncologic (Cancer) History: Reports: Prostate Dermatologic History: Reports: None - Infectious Disease History Infectious Disease History: Reports: Chicken Pox, Measles, Mumps, Novel Coronavirus, Scarlet Fever, Other (See Below) 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 - Past Surgical History Cardiovascular Surgical History: Reports: None Respiratory Surgical History: Reports: None GI Surgical History: Reports: Appendectomy Male Surgical History: Reports: None Endocrine Surgical History: Reports: None Neurological Surgical History: Reports: None Musculoskeletal Surgical History: Reports: None Oncologic Surgical History: Reports: None Social & Family History - Family History Family Medical History: Noncontributory Cardiac: Reports: Heart Failure Respiratory: Reports: Asthma - Caffeine Use Caffeine Use: Reports: Coffee - Living Situation & Occupation Living situation: Reports: , with Spouse 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 Denies: Sputum Cardiovascular: Reports: No Symptoms Endocrine: Reports: No Symptoms GI/Abdominal: Reports: No Symptoms : Reports: No Symptoms Musculoskeletal: Reports: No Symptoms Skin: Reports: No Symptoms Neurological: Reports: No Symptoms ED EXAM, GENERAL - Physical Exam Exam: See Below Exam Limited By: No Limitations General Appearance: Alert, No Apparent Distress Eye Exam: Bilateral Eye: Normal Inspection Ears: Normal External Exam, Normal Canal, Hearing Grossly Normal Nose: Normal Inspection, Normal Mucosa Throat/Mouth: Normal Inspection, Normal Oropharynx, No Airway Compromise Head: Atraumatic, Normocephalic Neck: Normal Inspection, Supple, Non-Tender, Full Range of Motion. No: Lymphadenopathy (L), Lymphadenopathy (R) Respiratory/Chest: No Respiratory Distress, Lungs Clear, Normal Breath Sounds Cardiovascular: Regular Rate, Rhythm, No Edema, No Murmur GI/Abdominal: Normal Bowel Sounds, Soft, Non-Tender Back Exam: Normal Inspection. No: CVA Tenderness (L), CVA Tenderness (R) Extremities: Normal Inspection, Normal Range of Motion Neurological: Alert, Oriented Course - Vital Signs Last Recorded V/S: Last Vital Signs Temp 37.2 C 08/24/20 16:41 Pulse 101 H 08/24/20 20:14 Resp 22 H 08/24/20 19:58 BP 142/94 H 08/24/20 20:11 Pulse Ox 89 L 08/24/20 20:14 - Orders/Labs/Meds Orders: Active Orders 24 hr Category Date Time Status Chest 1V Frontal [CR] Stat Exams 08/24/20 11:46 Taken Medication Orders Acetaminophen (Tylenol) 650 mg PO Q4H PRN PRN Reason: Pain (Mild 1-3)/fever Albuterol (Proventil Hfa) 0 gm INH Q4H PRN PRN Reason: Shortness of Breath Alogliptin Benzoate (Alogliptin) 25 mg PO DAILY [facility] Apixaban (Eliquis) 5 mg PO BID [facility] Last Admin: 08/24/20 20:09 Dose: 5 mg Documented by: [facility] Carvedilol (Coreg) 25 mg PO BID [facility] Last Admin: 08/24/20 20:11 Dose: 25 mg Documented by: TANMAY Dexamethasone (Dexamethasone) 6 mg PO Q24H [facility] Stop: 08/31/20 17:31 Last Admin: 08/24/20 18:34 Dose: 6 mg Documented by: [facility] Dextrose/Water (Dextrose 50% In Water) 50 ml IVPUSH ASDIRECTED PRN PRN Reason: Hypoglycemia Famotidine (Pepcid) 20 mg PO BID [facility] Famotidine (Pepcid) 20 mg PO BID [facility] Stop: 08/24/20 21:01 Last Admin: 08/24/20 20:05 Dose: 20 mg Documented by: TANMAY Hydralazine HCl (Apresoline) 25 mg PO QID [facility] Last Admin: 08/24/20 20:11 Dose: 25 mg Documented by: TANMAY Hydromorphone HCl (Dilaudid) 0.25 mg IVPUSH Q2H PRN PRN Reason: Pain (severe 7-10) Remdesivir 100 mg/ Sodium (Chloride) 100 mls @ 100 mls/hr IV Q24H [facility] Stop: 08/28/20 18:29 Ceftriaxone Sodium 2 gm/ (Sodium Chloride) 100 mls @ 200 mls/hr IV Q24H [facility] Stop: 08/29/20 20:31 Azithromycin 500 mg/ Sodium (Chloride) 250 mls @ 250 mls/hr IV Q24H [facility] Stop: 08/27/20 21:01 Insulin Glargine (Lantus) 50 unit SUBCUT BEDTIME [facility] Insulin Human Lispro (Humalog) 10 unit SUBCUT TIDPC [facility] Last Admin: 08/24/20 18:35 Dose: 10 unit Documented by: [facility] Insulin Human Lispro (Humalog) 0 unit SUBCUT QIDACANDBED [facility]; Protocol Losartan Potassium (Cozaar) 100 mg PO DAILY [facility] Methimazole (Methimazole) 5 mg PO DAILY [facility] Mirtazapine (Remeron) 45 mg PO BEDTIME [facility] Last Admin: 08/24/20 20:06 Dose: 45 mg Documented by: TANMAY Miscellaneous Information (Remove Patch) 1 ea TRDERM DAILY [facility] Nicotine (Habitrol) 21 mg TRDERM DAILY [facility] Nortriptyline HCl (Nortriptyline) 20 mg PO BEDTIME [facility] Last Admin: 08/24/20 20:04 Dose: 20 mg Documented by: TANMAY Ondansetron HCl (Zofran) 4 mg IV Q4H PRN PRN Reason: Nausea/Vomiting Oxycodone HCl (Oxycodone) 10 mg PO Q4H PRN PRN Reason: Pain (moderate 4-6) Last Admin: 08/24/20 20:07 Dose: 10 mg Documented by: TANMAY Polyethylene Glycol (Miralax) 17 gm PO DAILY PRN PRN Reason: Constipation Rosuvastatin Calcium (Crestor) 20 mg PO BEDTIME [facility] Last Admin: 08/24/20 20:07 Dose: 20 mg Documented by: TANMAY Senna/Docusate Sodium (Senna Plus) 1 tab PO BID PRN PRN Reason: Constipation Sodium Bicarbonate (Sodium Bicarbonate) 650 mg PO BID [facility] Last Admin: 08/24/20 20:05 Dose: 650 mg Documented by: TANMAY Labs: Laboratory Tests 08/24/20 08/24/20 08/24/20 Range/Units 12:00 12:16 12:16 WBC 11.53 H (4.23-9.07) K/mm3 RBC 3.83 L (4.63-6.08) M/mm3 Hgb 12.1 L (13.7-17.5) gm/dl Hct 37.7 L (40.1-51.0) % MCV 98.4 H (79.0-92.2) fl MCH 31.6 (25.7-32.2) pg MCHC 32.1 L (32.2-35.5) g/dl RDW Std Deviation 53.5 H (35.1-43.9) fL Plt Count 171 (163-337) K/mm3 MPV 11.2 (9.4-12.3) fl Neutrophils % (Manual) 75 H (40-60) % Band Neutrophils % 0 (0-10) % Lymphocytes % (Manual) 13 L (20-40) % Atypical Lymphs % 0 % Monocytes % (Manual) 12 H (2-10) % Eosinophils % (Manual) 0 L (0.8-7.0) % Basophils % (Manual) 0 L (0.2-1.2) Platelet Estimate Adequate Anisocytosis 1+ slight RBC Morph Comment Abnormal D-Dimer, Quantitative (0.19-0.50) mg/L Puncture Site Rt radial ABG pH 7.42 (7.35-7.45) ABG pCO2 43.1 (35.0-45.0) mmHg ABG pO2 39.0 L* (80.0-100.0) mmHg ABG HCO3 27.6 H (22.0-26.0) meq/L ABG O2 Saturation 59.3 L (96.0-97.0) % ABG Base Excess 3.3 H (-2-2.0) Angel Luis Test Positive A-a Gradient 57 mmHg O2 Delivery Device Room air Sodium 135 L (136-145) mEq/L Potassium 5.0 (3.5-5.1) mEq/L Chloride 99 (98-107) mEq/L Carbon Dioxide 26 (21-32) mEq/L Anion Gap 15.0 (5-15) BUN 52 H (7-18) mg/dL Creatinine 2.2 H (0.7-1.3) mg/dL Est Cr Clr Drug Dosing TNP Estimated GFR (MDRD) 30 (>60) mL/min BUN/Creatinine Ratio 23.6 H (14-18) Glucose 304 H (80-115) mg/dL Calcium 8.1 L (8.5-10.1) mg/dL Ferritin (26-388) ng/ml Total Bilirubin 0.7 (0.2-1.0) mg/dL AST 36 (15-37) U/L ALT 46 (16-63) U/L Alkaline Phosphatase 91 (46-116) U/L Lactate Dehydrogenase 365 H (85-227) U/L C-Reactive Protein 4.7 H* (<1.0) mg/dL Total Protein 6.7 (6.4-8.2) g/dl Albumin 2.8 L (3.4-5.0) g/dl Globulin 3.9 gm/dL Albumin/Globulin Ratio 0.7 L (1-2) 08/24/20 08/24/20 Range/Units 12:16 12:46 WBC (4.23-9.07) K/mm3 RBC (4.63-6.08) M/mm3 Hgb (13.7-17.5) gm/dl Hct (40.1-51.0) % MCV (79.0-92.2) fl MCH (25.7-32.2) pg MCHC (32.2-35.5) g/dl RDW Std Deviation (35.1-43.9) fL Plt Count (163-337) K/mm3 MPV (9.4-12.3) fl Neutrophils % (Manual) (40-60) % Band Neutrophils % (0-10) % Lymphocytes % (Manual) (20-40) % Atypical Lymphs % % Monocytes % (Manual) (2-10) % Eosinophils % (Manual) (0.8-7.0) % Basophils % (Manual) (0.2-1.2) Platelet Estimate Anisocytosis RBC Morph Comment D-Dimer, Quantitative 0.66 H (0.19-0.50) mg/L Puncture Site ABG pH (7.35-7.45) ABG pCO2 (35.0-45.0) mmHg ABG pO2 (80.0-100.0) mmHg ABG HCO3 (22.0-26.0) meq/L ABG O2 Saturation (96.0-97.0) % ABG Base Excess (-2-2.0) Angel Luis Test A-a Gradient mmHg O2 Delivery Device Sodium (136-145) mEq/L Potassium (3.5-5.1) mEq/L Chloride (98-107) mEq/L Carbon Dioxide (21-32) mEq/L Anion Gap (5-15) BUN (7-18) mg/dL Creatinine (0.7-1.3) mg/dL Est Cr Clr Drug Dosing Estimated GFR (MDRD) (>60) mL/min BUN/Creatinine Ratio (14-18) Glucose (80-115) mg/dL Calcium (8.5-10.1) mg/dL Ferritin 184 (26-388) ng/ml Total Bilirubin (0.2-1.0) mg/dL AST (15-37) U/L ALT (16-63) U/L Alkaline Phosphatase (46-116) U/L Lactate Dehydrogenase (85-227) U/L C-Reactive Protein (<1.0) mg/dL Total Protein (6.4-8.2) g/dl Albumin (3.4-5.0) g/dl Globulin gm/dL Albumin/Globulin Ratio (1-2) Meds: Medications Generic Name Dose Route Start Last Admin Trade Name Freq PRN Reason Stop Dose Admin Acetaminophen 650 mg 10/04/20 16:35 Tylenol PO Q4H PRN Pain (Mild 1-3)/fever Albuterol 0 gm 08/24/20 16:38 Proventil Hfa INH Q4H PRN Shortness of Breath Alogliptin Benzoate 25 mg 08/25/20 09:00 Alogliptin PO DAILY [facility] Apixaban 5 mg 08/24/20 21:00 08/24/20 20:09 Eliquis PO 5 mg BID [facility] Administration Carvedilol 25 mg 08/24/20 21:00 08/24/20 20:11 Coreg PO 25 mg BID [facility] Administration Dexamethasone 6 mg 08/24/20 17:30 08/24/20 18:34 Dexamethasone PO 08/31/20 17:31 6 mg Q24H [facility] Administration Dextrose/Water 50 ml 08/24/20 17:21 Dextrose 50% In Water IVPUSH ASDIRECTED PRN Hypoglycemia Famotidine 20 mg 08/24/20 21:00 Pepcid PO BID [facility] Famotidine 20 mg 08/24/20 21:00 08/24/20 20:05 Pepcid PO 08/24/20 21:01 20 mg BID [facility] Administration Hydralazine HCl 25 mg 08/24/20 21:00 08/24/20 20:11 Apresoline PO 25 mg QID [facility] Administration Hydromorphone HCl 0.25 mg 08/24/20 16:35 Dilaudid IVPUSH Q2H PRN Pain (severe 7-10) Remdesivir 100 mg/ Sodium 100 mls @ 100 mls/hr 08/25/20 17:30 Chloride IV 08/28/20 18:29 Q24H [facility] Ceftriaxone Sodium 2 gm/ 100 mls @ 200 mls/hr 08/24/20 20:30 Sodium Chloride IV 08/29/20 20:31 Q24H [facility] Azithromycin 500 mg/ Sodium 250 mls @ 250 mls/hr 08/24/20 21:00 Chloride IV 08/27/20 21:01 Q24H [facility] Insulin Glargine 50 unit 08/24/20 21:00 Lantus SUBCUT BEDTIME [facility] Insulin Human Lispro 10 unit 08/24/20 19:00 08/24/20 18:35 Humalog SUBCUT 10 unit TIDPC [facility] Administration Insulin Human Lispro 0 unit 08/24/20 22:00 Humalog SUBCUT QIDACANDBED [facility] Protocol Losartan Potassium 100 mg 08/25/20 09:00 Cozaar PO DAILY [facility] Methimazole 5 mg 08/25/20 09:00 Methimazole PO DAILY [facility] Mirtazapine 45 mg 08/24/20 21:00 08/24/20 20:06 Remeron PO 45 mg BEDTIME [facility] Administration Miscellaneous Information 1 ea 08/25/20 09:00 Remove Patch TRDERM DAILY [facility] Nicotine 21 mg 08/25/20 09:00 Habitrol TRDERM DAILY [facility] Nortriptyline HCl 20 mg 08/24/20 21:00 08/24/20 20:04 Nortriptyline PO 20 mg BEDTIME [facility] Administration Ondansetron HCl 4 mg 08/24/20 16:35 Zofran IV Q4H PRN Nausea/Vomiting Oxycodone HCl 10 mg 08/24/20 16:35 08/24/20 20:07 Oxycodone PO 10 mg Q4H PRN Administration Pain (moderate 4-6) Polyethylene Glycol 17 gm 08/24/20 16:35 Miralax PO DAILY PRN Constipation Rosuvastatin Calcium 20 mg 08/24/20 21:00 08/24/20 20:07 Crestor PO 20 mg BEDTIME [facility] Administration Senna/Docusate Sodium 1 tab 08/24/20 16:35 Senna Plus PO BID PRN Constipation Sodium Bicarbonate 650 mg 08/24/20 21:00 08/24/20 20:05 Sodium Bicarbonate PO 650 mg BID [facility] Administration Discontinued Medications Generic Name Dose Route Start Last Admin Trade Name Freq PRN Reason Stop Dose Admin Carvedilol 25 mg 08/24/20 17:15 08/24/20 18:43 Coreg PO Not Given BIDMEALS [facility] Hydralazine HCl 25 mg 08/24/20 17:00 08/24/20 17:19 Apresoline PO Not Given QID [facility] Hydromorphone HCl Confirm 08/24/20 14:06 08/24/20 14:11 Dilaudid Administered 08/24/20 14:07 Not Given Dose 0.5 mg .ROUTE .STK-MED ONE Hydromorphone HCl 0.5 mg 08/24/20 14:11 08/24/20 14:15 Dilaudid IVPUSH 08/24/20 14:12 0.5 mg ONETIME [facility] Administration Remdesivir 200 mg/ Sodium 250 mls @ 250 mls/hr 08/24/20 18:15 08/24/20 18:31 Chloride IV 08/24/20 19:14 250 mls/hr ONETIME ONE Administration Sodium Chloride Confirm 08/24/20 18:12 08/24/20 18:35 Normal Saline Administered 08/24/20 18:13 Not Given Dose 250 mls @ as directed .ROUTE .STK-MED ONE Influenza Virus Vaccine 1 each 08/24/20 14:36 Pharmacy To Dose - Influenza Vaccine IM 08/24/20 14:37 ONETIME ONE Influenza Virus Vaccine 60 mcg 08/24/20 14:45 Fluzone Quad [id number] Syringe IM 08/24/20 14:46 .ONCE ONE Ondansetron HCl 4 mg 08/24/20 13:39 08/24/20 14:15 Zofran IVPUSH 08/24/20 13:40 4 mg ONETIME ONE Administration - Re-Assessments/Exams Free Text/Narrative Re-Assessment/Exam: 08/24/20 13:[address] Dsouza, our hospitalist, the patient will be readmitted. Departure - Departure Time of Disposition: 13:28 Disposition: Admitted As Inpatient 68 Clinical Impression: COVID-19, Hypoxia - Discharge Information Sepsis Event Note (ED) - Focused Exam Vital Signs: Vital Signs Temp Pulse Resp BP Pulse Ox Pulse Ox 08/24/20 12:33 89 L 08/24/20 11:10 36.1 C 98 18 142/87 H 89 L - My Orders Last 24 Hours: My Active Orders 08/24/20 11:46 Chest 1V Frontal [CR] Stat - Assessment/Plan Last 24 Hours: My Active Orders 08/24/20 11:46 Chest 1V Frontal [CR] Stat
[2020-08-24] MEDS ORDERED: Ondansetron 4 MG/2 ML SDV IVPUSH ONE (13:39)
[2020-08-24] MEDS ORDERED: HYDROmorphone 0.5 MG/0.5 ML Syringe ONE (14:06)
[2020-08-24] MEDS ORDERED: HYDROmorphone 0.5 MG/0.5 ML Syringe IVPUSH STA (14:11)
[2020-08-24] MEDS ORDERED: FLU VACC QS2020-21(6MOS UP)/PF 60 MCG/0.5 ML SYRINGE IM ONE (14:45)
--- NOTE | 2020-08-24 15:24 | PCM.HP.2 ---
H&P History of Present Illness - General Date of Service: 08/24/20 Admit Problem/Dx: Admission Diagnosis/Problem Admission Diagnosis/Problem Hypoxia - History of Present Illness Initial Comments - Free Text/Narative: 64-year-old male who was discharged yesterday after being in the hospital for 3 days with COVID-19. Patient initially came in and was on 6 L nasal cannula. After getting to units of convalescent plasma we were able to wean off his oxygen and he spent 2 days on the floor without oxygen. He was discharged home off of oxygen. Apparently patient worsened and became short of breath, developed a worsening cough, and weak. He presented to the emergency department oxygenation was 89% on room air. WBC was 11.5 in the emergency department today, improved from discharge at 14. C-reactive protein did increase to 4.7. Creatinine improved to 2.2 and BUN to 52. Patient was placed on nasal cannula and transferred to the floor. Generalized Pain Score (Numeric/FACES): 6 - Related Data Allergies/Adverse Reactions: Allergies Allergy/AdvReac Type Severity Reaction Status Date / Time Penicillins Allergy Mild Hives Verified 08/24/20 13:08 Sulfa (Sulfonamide Allergy Mild Hives Verified 08/24/20 13:08 Antibiotics) Home Medications: Home Meds Losartan [Cozaar] 100 mg PO DAILY tablet 05/23/19 [Rx] Dulaglutide [Trulicity] 1.5 mg SQ SA 06/26/19 [History] Furosemide [Lasix] 40 mg PO BID #60 tab 06/27/19 [Rx] Apixaban [Eliquis] 5 mg PO BID 11/27/19 [History] Diclofenac Sodium [Voltaren 1% Gel] 4 gram TOP QID PRN 11/27/19 [History] Multivitamin [Daily Multiple Vitamin] 1 tab PO DAILY 11/27/19 [History] Sodium Bicarbonate 650 mg PO BID 11/27/19 [History] Albuterol Sulfate [Proventil Hfa] 2 puff INH Q4H PRN 02/07/20 [History] Alogliptin Benzoate [Alogliptin] 25 mg PO DAILY 02/07/20 [History] Mirtazapine 45 mg PO BEDTIME 02/07/20 [History] Nortriptyline 20 mg PO BEDTIME 02/07/20 [History] Rosuvastatin Calcium 20 mg PO BEDTIME 02/07/20 [History] methIMAzole [Tapazole] 5 mg PO DAILY 02/07/20 [History] hydrALAZINE [Apresoline] 25 mg PO BID 08/06/20 [History] Famotidine [Pepcid] 20 mg PO BID #60 tablet 08/23/20 [Rx] Insulin Glarg,Human.Rec.Analog [Lantus] 50 unit SUBCUT BEDTIME ml 08/23/20 [Rx] Insulin Lispro [HumaLOG] 10 unit SUBCUT TIDPC #1 vial 08/23/20 [Rx] Nicotine [Habitrol] 21 mg TRDERM DAILY patch 08/23/20 [Rx] carvediloL [Coreg] 25 mg PO BID #120 tablet 08/23/20 [Rx] oxyCODONE 10 mg PO Q4H PRN #10 tablet 08/23/20 [Rx] Past Medical History HEENT History: Reports: Glaucoma, Hard of Hearing, Impaired Vision, Sinusitis Other HEENT History: wears eyeglasses for driving only Cardiovascular History: Reports: Afib, Heart Failure, High Cholesterol, Hypertension, SOB on Exertion Respiratory History: Reports: Bronchitis, Recurrent, COPD, Pneumonia, Recurrent, Sleep Apnea Other Respiratory History: hypoxemic respiratory failure Gastrointestinal History: Reports: Diverticulosis, GERD Genitourinary History: Reports: Chronic Renal Insuffiency, Diabetic Nephropathy Other Genitourinary History: Hx of prostate cancer. [employer]PER[employer] History: Reports: None Musculoskeletal History: Reports: Arthritis Neurological History: Reports: Headaches, Chronic, Migraines Psychiatric History: Reports: Anxiety, Depression Endocrine/Metabolic History: Reports: Diabetes, Type II, Obesity/BMI 30+ Other Endocrine/Metabolic History: graves Hematologic History: Reports: None Immunologic History: Reports: None Oncologic (Cancer) History: Reports: Prostate Dermatologic History: Reports: None - Infectious Disease History Infectious Disease History: Reports: Chicken Pox, Measles, Mumps, Novel Coronavirus, Scarlet Fever, Other (See Below) 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 - Past Surgical History Head Surgeries/Procedures: Reports: None Cardiovascular Surgical History: Reports: None Respiratory Surgical History: Reports: None GI Surgical History: Reports: Appendectomy Male Surgical History: Reports: None Endocrine Surgical History: Reports: None Neurological Surgical History: Reports: None Musculoskeletal Surgical History: Reports: None Oncologic Surgical History: Reports: None Social & Family History - Family History Family Medical History: Noncontributory Cardiac: Reports: Heart Failure Respiratory: Reports: Asthma - Tobacco Use Smoking Status *Q: Former Smoker Years of Tobacco use: 40 Packs/Tins Daily: 0.5 Used Tobacco, but Quit: Yes Month/Year Tobacco Last Used: june Tobacco Use Comment: quit smoking a month ago - Caffeine Use Caffeine Use: Reports: Coffee, Tea Other Caffeine Use: 2 cups a day - Recreational Drug Use Recreational Drug Use: No - Living Situation & Occupation Living situation: Reports: , with Spouse 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 Exam - Exam Exam: See Below - Vital Signs Vital Signs: Last Vital Signs Temp 97 F 08/24/20 11:10 Pulse 88 08/24/20 14:28 Resp 18 08/24/20 14:28 BP 144/75 H 08/24/20 14:28 Pulse Ox 95 08/24/20 14:28 Weight: 111.493 kg - Exam Quality Assessment: Supplemental Oxygen General: Alert, Oriented HEENT: Conjunctiva Clear, Hearing Intact, Mucosa Moist & [place] Lungs: Normal Respiratory Effort, Decreased Breath Sounds Cardiovascular: Regular Rate, Regular Rhythm GI/Abdominal Exam: Normal Bowel Sounds, Soft, Non-Tender, Distended Back Exam: Normal Inspection Extremities: Normal Inspection, No Pedal Edema, Normal Capillary Refill Skin: Warm, Dry, Intact Psychiatric: Alert, Normal Affect, Normal Mood - Patient Data Lab Results Last 24 hrs: Laboratory Results - last 24 hr 08/24/20 08/24/20 08/24/20 Range/Units 12:00 12:16 12:16 WBC 11.53 H (4.23-9.07) K/mm3 RBC 3.83 L (4.63-6.08) M/mm3 Hgb 12.1 L (13.7-17.5) gm/dl Hct 37.7 L (40.1-51.0) % MCV 98.4 H (79.0-92.2) fl MCH 31.6 (25.7-32.2) pg MCHC 32.1 L (32.2-35.5) g/dl RDW Std Deviation 53.5 H (35.1-43.9) fL Plt Count 171 (163-337) K/mm3 MPV 11.2 (9.4-12.3) fl Neutrophils % (Manual) 75 H (40-60) % Band Neutrophils % 0 (0-10) % Lymphocytes % (Manual) 13 L (20-40) % Atypical Lymphs % 0 % Monocytes % (Manual) 12 H (2-10) % Eosinophils % (Manual) 0 L (0.8-7.0) % Basophils % (Manual) 0 L (0.2-1.2) Platelet Estimate Adequate Anisocytosis 1+ slight RBC Morph Comment Abnormal D-Dimer, Quantitative (0.19-0.50) mg/L Puncture Site Rt radial ABG pH 7.42 (7.35-7.45) ABG pCO2 43.1 (35.0-45.0) mmHg ABG pO2 39.0 L* (80.0-100.0) mmHg ABG HCO3 27.6 H (22.0-26.0) meq/L ABG O2 Saturation 59.3 L (96.0-97.0) % ABG Base Excess 3.3 H (-2-2.0) Angel Luis Test Positive A-a Gradient 57 mmHg O2 Delivery Device Room air Sodium 135 L (136-145) mEq/L Potassium 5.0 (3.5-5.1) mEq/L Chloride 99 (98-107) mEq/L Carbon Dioxide 26 (21-32) mEq/L Anion Gap 15.0 (5-15) BUN 52 H (7-18) mg/dL Creatinine 2.2 H (0.7-1.3) mg/dL Est Cr Clr Drug Dosing TNP Estimated GFR (MDRD) 30 (>60) mL/min BUN/Creatinine Ratio 23.6 H (14-18) Glucose 304 H (80-115) mg/dL Calcium 8.1 L (8.5-10.1) mg/dL Ferritin (26-388) ng/ml Total Bilirubin 0.7 (0.2-1.0) mg/dL AST 36 (15-37) U/L ALT 46 (16-63) U/L Alkaline Phosphatase 91 (46-116) U/L Lactate Dehydrogenase 365 H (85-227) U/L C-Reactive Protein 4.7 H* (<1.0) mg/dL Total Protein 6.7 (6.4-8.2) g/dl Albumin 2.8 L (3.4-5.0) g/dl Globulin 3.9 gm/dL Albumin/Globulin Ratio 0.7 L (1-2) 08/24/20 08/24/20 Range/Units 12:16 12:46 WBC (4.23-9.07) K/mm3 RBC (4.63-6.08) M/mm3 Hgb (13.7-17.5) gm/dl Hct (40.1-51.0) % MCV (79.0-92.2) fl MCH (25.7-32.2) pg MCHC (32.2-35.5) g/dl RDW Std Deviation (35.1-43.9) fL Plt Count (163-337) K/mm3 MPV (9.4-12.3) fl Neutrophils % (Manual) (40-60) % Band Neutrophils % (0-10) % Lymphocytes % (Manual) (20-40) % Atypical Lymphs % % Monocytes % (Manual) (2-10) % Eosinophils % (Manual) (0.8-7.0) % Basophils % (Manual) (0.2-1.2) Platelet Estimate Anisocytosis RBC Morph Comment D-Dimer, Quantitative 0.66 H (0.19-0.50) mg/L Puncture Site ABG pH (7.35-7.45) ABG pCO2 (35.0-45.0) mmHg ABG pO2 (80.0-100.0) mmHg ABG HCO3 (22.0-26.0) meq/L ABG O2 Saturation (96.0-97.0) % ABG Base Excess (-2-2.0) Angel Luis Test A-a Gradient mmHg O2 Delivery Device Sodium (136-145) mEq/L Potassium (3.5-5.1) mEq/L Chloride (98-107) mEq/L Carbon Dioxide (21-32) mEq/L Anion Gap (5-15) BUN (7-18) mg/dL Creatinine (0.7-1.3) mg/dL Est Cr Clr Drug Dosing Estimated GFR (MDRD) (>60) mL/min BUN/Creatinine Ratio (14-18) Glucose (80-115) mg/dL Calcium (8.5-10.1) mg/dL Ferritin 184 (26-388) ng/ml Total Bilirubin (0.2-1.0) mg/dL AST (15-37) U/L ALT (16-63) U/L Alkaline Phosphatase (46-116) U/L Lactate Dehydrogenase (85-227) U/L C-Reactive Protein (<1.0) mg/dL Total Protein (6.4-8.2) g/dl Albumin (3.4-5.0) g/dl Globulin gm/dL Albumin/Globulin Ratio (1-2) Result Diagrams: 08/25/20 05:47 08/25/20 05:47 Imaging Impressions Last 24 hrs: Chest x-ray shows bilateral infiltrates consistent with viral pneumonia. Sepsis Event Note - Evaluation Sepsis Screening Result: No Definite Risk - Focused Exam Vital Signs: Vital Signs Temp Pulse Resp BP Pulse Ox Pulse Ox 08/24/20 14:28 88 18 144/75 H 95 08/24/20 12:33 89 L 08/24/20 11:10 97 F 98 18 142/87 H 89 L - Problem List (1) COVID-19 SNOMED Code(s): 492982138 ICD Code: U07.1 - COVID-19 Status: Acute Current Visit: Yes (2) Hypoxia SNOMED Code(s): 851270037 ICD Code: R09.02 - HYPOXEMIA Status: Acute Current Visit: Yes (3) COPD (chronic obstructive pulmonary disease) SNOMED Code(s): 36209036 ICD Code: J44.9 - CHRONIC OBSTRUCTIVE PULMONARY DISEASE, UNSPECIFIED Status: Acute Current Visit: No Qualifiers: COPD type: unspecified COPD Qualified Code(s): J44.9 - Chronic obstructive pulmonary disease, unspecified (4) Congestive heart failure (CHF) SNOMED Code(s): 97132832 ICD Code: I50.9 - HEART FAILURE, UNSPECIFIED Status: Acute Current Visit: No Qualifiers: Heart failure type: unspecified Heart failure chronicity: acute Qualified Code(s): I50.9 - Heart failure, unspecified (5) Diabetic nephropathy associated with type 2 diabetes mellitus SNOMED Code(s): 920366972, 408495133 ICD Code: E11.21 - TYPE 2 DIABETES MELLITUS WITH DIABETIC NEPHROPATHY Status: Acute Current Visit: No (6) Graves' disease SNOMED Code(s): 307510551 ICD Code: E05.00 - THYROTOXICOSIS W DIFFUSE GOITER W/O THYROTOXIC CRISIS Status: Acute Current Visit: No (7) Hypertensive heart disease SNOMED Code(s): 48386289 ICD Code: I11.9 - HYPERTENSIVE HEART DISEASE WITHOUT HEART FAILURE Status: Acute Current Visit: No Qualifiers: Heart failure presence: with heart failure Heart failure type: unspecified Qualified Code(s): I11.0 - Hypertensive heart disease with heart failure (8) Obstructive sleep apnea SNOMED Code(s): 91121555 ICD Code: G47.33 - OBSTRUCTIVE SLEEP APNEA (ADULT) (PEDIATRIC) Status: Acute Current Visit: No (9) Pneumonia due to COVID-19 virus SNOMED Code(s): 564007762671063544 ICD Code: U07.1 - COVID-19; J12.89 - OTHER VIRAL PNEUMONIA Status: Acute Current Visit: No (10) Uncontrolled type 2 diabetes mellitus SNOMED Code(s): 547877249, 090851758 ICD Code: E11.65 - TYPE 2 DIABETES MELLITUS WITH HYPERGLYCEMIA Status: Acute Current Visit: No Problem List Initiated/Reviewed/Updated: Yes Orders Last 24hrs: Active Orders 24 hr Category Date Time Status Patient Status [ADT] Routine ADT 08/24/20 13:34 Active Influenza Vaccine Charge [RC] .DISCHARGE Care 08/24/20 14:37 Active Chest 1V Frontal [CR] Stat Exams 08/24/20 11:46 Taken Assessment/Plan Comment:: Pneumonia secondary to COVID-19 COPD [id number] history, stopped smoking 2 weeks ago. Sleep apnea * Admitted on 08/20/2020 and discharged on 08/23/2020 after getting 2 units of convalescent plasma and being on room air for 2 days. * Patient returned to the emergency department today with worsening shortness of breath, PaO2 of 39 on room air, and cough. * Currently requiring 2 to 4 L of O2 via nasal cannula to keep oxygen saturations in the low 90s. * No significant change in chest x-ray since August 20 * Pertinent labs: WBC 11.53, PaO2 39 on room air, CRP 4.7, LDH 365, d-dimer 0.66, ferritin 184 Congestive heart failure with preserved ejection fraction Atrial fibrillation Hypertension Hyperlipidemia * Echocardiogram from June 2019 showed ejection fraction of 55 to 60%. * Home dose of Lasix was 40 mg twice daily, held during last hospitalization. * On Eliquis 5 mg twice daily for stroke prevention * Blood pressure medications adjusted last hospitalization: Carvedilol 25 mg twice daily, losartan 100 mg daily, hydralazine 25 mg 4 times daily. Insulin-dependent diabetespoorly controlled * Hemoglobin A1c 9.5 * Increase Lantus to 50 units at bedtime and Humalog 10 units with each meal. * On Trulicity and alogliptin at home. Stage III-IV chronic renal insufficiency * GFR is up to 30 * Baseline appears to be in the upper 20s to low 30 * He did not receive remdesivir last visit secondary to poor renal function. Graves' disease * TSH normal * Methimazole 5 mg daily. Plan * Admit to floor for COVID 19 treatment. * Continuous pulse ox and telemetry. * Start remdesivir 200 mg tonight then 100 mg daily for total of 5 days. * Dexamethasone 6 mg daily. * Close monitoring and treatment of hyperglycemia. * FiO2 to keep SPO2 greater than 88%. * ABGs as needed * CPAP/BiPAP while asleep. * Rocephin 200 mg daily for 5 days and azithromycin 5 mg daily for 3 days. * Continue alogliptin, Lantus 50 units daily, Humalog 10 units after full meals, hydralazine, Coreg, losartan, and famotidine. * I-S and Acapella * Strict I's and O's and daily weights * COVID labs in the morning VTE prophylaxis with Eliquis CODE STATUS: Full code Disposition admit to medical floor for hypoxemia and treatment of COVID pneumo nikko. - Mortality Measure Prognosis:: Good
[2020-08-24] MEDS ORDERED: Polyethylene Glycol 3350 Powder 17 GM Packet PO PRN (16:35)
[2020-08-24] MEDS ORDERED: Ondansetron 4 MG/2 ML SDV IV PRN (16:35)
[2020-08-24] MEDS ORDERED: HYDROmorphone 0.5 MG/0.5 ML Syringe IVPUSH PRN (16:35)
[2020-08-24] MEDS ORDERED: Acetaminophen 325 MG Tab PO PRN (16:35)
[2020-08-24] MEDS ORDERED: oxyCODONE 5 MG Tab PO PRN (16:35)
[2020-08-24] MEDS ORDERED: Albuterol 6.7 GM Inhaler INH PRN (16:38)
[2020-08-24] MEDS ORDERED: hydrALAZINE 25 MG Tab PO SCH (17:00)
[2020-08-24] MEDS ORDERED: Carvedilol 12.5 MG Tab PO SCH (17:15)
[2020-08-24] MEDS ORDERED: 50% Dextrose in Water 50 ML Syringe IVPUSH PRN (17:21)
[2020-08-24] MEDS ORDERED: REMDESIVIR 200 MG in Sodium Chloride 0.9% 250 ML IV ONE ×2 (17:23→18:15)
[2020-08-24] MEDS ORDERED: Sodium Chloride 0.9% 250 ML ONE (18:12)
[2020-08-24] MEDS: Dexamethasone 4 MG Tab PO SCH (18:34)
[2020-08-24] MEDS: Insulin Lispro 100 Units/ML 3 ML Vial SUBCUT SCH ×2 (18:35→22:25)
[2020-08-24] MEDS: Nortriptyline 10 MG Cap PO SCH (20:04)
[2020-08-24] MEDS: Sodium Bicarbonate 650 MG Tab PO SCH (20:05)
[2020-08-24] MEDS: Mirtazapine 15 MG Tab PO SCH (20:06)
[2020-08-24] MEDS: Rosuvastatin 10 MG Tab PO SCH (20:07)
[2020-08-24] MEDS: Apixaban 5 MG Tab PO SCH (20:09)
[2020-08-24] MEDS: Carvedilol 12.5 MG Tab PO SCH (20:11)
[2020-08-24] MEDS: hydrALAZINE 25 MG Tab PO SCH (20:11)
[2020-08-24] MEDS: cefTRIAXone 2 GM in Sodium Chloride 0.9% 100 ML IV SCH (20:53)
[2020-08-24] MEDS ORDERED: Famotidine 20 MG Tab PO SCH (21:00)
[2020-08-24] MEDS: Insulin Glarg,Human.Rec.Analog 100 Unit/ML SUBCUT SCH (22:23)
[2020-08-24] MEDS: Azithromycin 500 MG in Sodium Chloride 0.9% 250 ML IV SCH (22:28)
[2020-08-25] MEDS: Insulin Lispro 100 Units/ML 3 ML Vial SUBCUT SCH ×7 (07:55→21:32)
[2020-08-25] MEDS: hydrALAZINE 25 MG Tab PO SCH ×4 (08:20→20:30)
[2020-08-25] MEDS: Carvedilol 12.5 MG Tab PO SCH ×2 (08:20→20:28)
[2020-08-25] MEDS: Sodium Bicarbonate 650 MG Tab PO SCH ×2 (08:20→20:26)
[2020-08-25] MEDS: Methimazole 5 MG Tab PO SCH (08:20)
[2020-08-25] MEDS: Apixaban 5 MG Tab PO SCH ×2 (08:20→20:27)
[2020-08-25] MEDS: Nicotine 21 MG/24 Hr Patch TRDERM SCH (08:31)
[2020-08-25] MEDS ORDERED: Losartan 100 MG Tab PO SCH (09:00)
[2020-08-25] MEDS: Dexamethasone 4 MG Tab PO SCH (16:33)
[2020-08-25] MEDS: Acetaminophen/HYDROcodone 325-5 MG Tab PO PRN ×2 (16:33→21:23)
[2020-08-25] MEDS ORDERED: REMDESIVIR 100 MG in Sodium Chloride 0.9% 100 ML IV SCH (17:30)
--- NOTE | 2020-08-25 19:47 | PCM.PN ---
- General Info Date of Service: 08/25/20 Admission Dx/Problem (Free Text): Admission Diagnosis/Problem Admission Diagnosis/Problem Hypoxia Subjective Update: Patient states that he is feeling better this morning. He is less fatigued. Currently on 6 L nasal cannula. And received first dose of remdesivir and dexamethasone. Functional Status: Reports: Pain Controlled - Review of Systems General: Reports: Fatigue HEENT: Reports: No Symptoms Pulmonary: Reports: Shortness of Breath, Cough Cardiovascular: Reports: No Symptoms Gastrointestinal: Reports: No Symptoms Musculoskeletal: Reports: No Symptoms - Patient Data Vitals - Most Recent: Last Vital Signs Temp 98.2 F 08/25/20 15:37 Pulse 127 H 08/25/20 15:37 Resp 20 08/25/20 15:37 BP 158/89 H 08/25/20 16:39 Pulse Ox 93 L 08/25/20 15:37 Weight - Most Recent: 111.493 kg I&O - Last 24 Hours: Intake & Output 08/25/20 08/25/20 08/25/20 06:59 14:59 22:59 Intake Total 368 757 9069 Output Total 250 700 Balance 200 360 800 Lab Results Last 24 Hours: Laboratory Results - last 24 hr 08/24/20 08/25/20 08/25/20 Range/Units 21:02 00:32 02:00 WBC (4.23-9.07) K/mm3 RBC (4.63-6.08) M/mm3 Hgb (13.7-17.5) gm/dl Hct (40.1-51.0) % MCV (79.0-92.2) fl MCH (25.7-32.2) pg MCHC (32.2-35.5) g/dl RDW Std Deviation (35.1-43.9) fL Plt Count (163-337) K/mm3 MPV (9.4-12.3) fl Neut % (Auto) (34.0-67.9) % Lymph % (Auto) (21.8-53.1) % [place] % (Auto) (5.3-12.2) % Eos % (Auto) (0.8-7.0) Baso % (Auto) (0.1-1.2) % Neut # (Auto) (1.78-5.38) K/mm3 Lymph # (Auto) (1.32-3.57) K/mm3 [place] # (Auto) (0.30-0.82) K/mm3 Eos # (Auto) (0.04-0.54) K/mm3 Baso # (Auto) (0.01-0.08) K/mm3 Manual Slide Review D-Dimer, Quantitative (0.19-0.50) mg/L Puncture Site Lt radial Rt radial ABG pH 7.24 L 7.34 L (7.35-7.45) ABG pCO2 68.9 H 52.9 H (35.0-45.0) mmHg ABG pO2 102.0 H 78.0 L (80.0-100.0) mmHg ABG HCO3 28.2 H 27.5 H (22.0-26.0) meq/L ABG O2 Saturation 96.7 94.8 L (96.0-97.0) % ABG Base Excess -0.2 1.5 (-2-2.0) A-a Gradient 297 227 mmHg O2 Delivery Device Cpap Bipap Oxygen Flow Rate 12.0 8.0 FiO2 68.00 52.00 (21.00-100.00) % Sodium (136-145) mEq/L Potassium (3.5-5.1) mEq/L Chloride (98-107) mEq/L Carbon Dioxide (21-32) mEq/L Anion Gap (5-15) BUN (7-18) mg/dL Creatinine (0.7-1.3) mg/dL Est Cr Clr Drug Dosing mL/min Estimated GFR (MDRD) (>60) mL/min BUN/Creatinine Ratio (14-18) Glucose (80-115) mg/dL POC Glucose 219 H (80-115) mg/dL Calcium (8.5-10.1) mg/dL Phosphorus (2.6-4.7) mg/dL Magnesium (1.8-2.4) mg/dl Total Bilirubin (0.2-1.0) mg/dL AST (15-37) U/L ALT (16-63) U/L Alkaline Phosphatase (46-116) U/L C-Reactive Protein (<1.0) mg/dL Total Protein (6.4-8.2) g/dl Albumin (3.4-5.0) g/dl Globulin gm/dL Albumin/Globulin Ratio (1-2) 08/25/20 08/25/20 08/25/20 Range/Units 05:47 05:47 05:47 WBC 7.83 (4.23-9.07) K/mm3 RBC 3.54 L (4.63-6.08) M/mm3 Hgb 11.1 L (13.7-17.5) gm/dl Hct 35.4 L (40.1-51.0) % MCV 100.0 H (79.0-92.2) fl MCH 31.4 (25.7-32.2) pg MCHC 31.4 L (32.2-35.5) g/dl RDW Std Deviation 54.0 H (35.1-43.9) fL Plt Count 159 L (163-337) K/mm3 MPV 10.8 (9.4-12.3) fl Neut % (Auto) 81.6 H (34.0-67.9) % Lymph % (Auto) 7.7 L (21.8-53.1) % [place] % (Auto) 9.5 (5.3-12.2) % Eos % (Auto) 0 L (0.8-7.0) Baso % (Auto) 0.1 (0.1-1.2) % Neut # (Auto) 6.39 H (1.78-5.38) K/mm3 Lymph # (Auto) 0.60 L (1.32-3.57) K/mm3 [place] # (Auto) 0.74 (0.30-0.82) K/mm3 Eos # (Auto) 0.00 L (0.04-0.54) K/mm3 Baso # (Auto) 0.01 (0.01-0.08) K/mm3 Manual Slide Review Abnormal smear D-Dimer, Quantitative 0.45 (0.19-0.50) mg/L Puncture Site ABG pH (7.35-7.45) ABG pCO2 (35.0-45.0) mmHg ABG pO2 (80.0-100.0) mmHg ABG HCO3 (22.0-26.0) meq/L ABG O2 Saturation (96.0-97.0) % ABG Base Excess (-2-2.0) A-a Gradient mmHg O2 Delivery Device Oxygen Flow Rate FiO2 (21.00-100.00) % Sodium 138 (136-145) mEq/L Potassium 5.4 H (3.5-5.1) mEq/L Chloride 103 (98-107) mEq/L Carbon Dioxide 28 (21-32) mEq/L Anion Gap 12.4 (5-15) BUN 58 H (7-18) mg/dL Creatinine 2.5 H (0.7-1.3) mg/dL Est Cr Clr Drug Dosing 31.63 mL/min Estimated GFR (MDRD) 26 (>60) mL/min BUN/Creatinine Ratio 23.2 H (14-18) Glucose 154 H (80-115) mg/dL POC Glucose (80-115) mg/dL Calcium 7.7 L (8.5-10.1) mg/dL Phosphorus 4.1 (2.6-4.7) mg/dL Magnesium 2.9 H (1.8-2.4) mg/dl Total Bilirubin 0.4 (0.2-1.0) mg/dL AST 30 (15-37) U/L ALT 44 (16-63) U/L Alkaline Phosphatase 85 (46-116) U/L C-Reactive Protein 10.5 H* (<1.0) mg/dL Total Protein 6.5 (6.4-8.2) g/dl Albumin 2.6 L (3.4-5.0) g/dl Globulin 3.9 gm/dL Albumin/Globulin Ratio 0.7 L (1-2) 08/25/20 08/25/20 08/25/20 Range/Units 06:06 11:20 13:25 WBC (4.23-9.07) K/mm3 RBC (4.63-6.08) M/mm3 Hgb (13.7-17.5) gm/dl Hct (40.1-51.0) % MCV (79.0-92.2) fl MCH (25.7-32.2) pg MCHC (32.2-35.5) g/dl RDW Std Deviation (35.1-43.9) fL Plt Count (163-337) K/mm3 MPV (9.4-12.3) fl Neut % (Auto) (34.0-67.9) % Lymph % (Auto) (21.8-53.1) % [place] % (Auto) (5.3-12.2) % Eos % (Auto) (0.8-7.0) Baso % (Auto) (0.1-1.2) % Neut # (Auto) (1.78-5.38) K/mm3 Lymph # (Auto) (1.32-3.57) K/mm3 [place] # (Auto) (0.30-0.82) K/mm3 Eos # (Auto) (0.04-0.54) K/mm3 Baso # (Auto) (0.01-0.08) K/mm3 Manual Slide Review D-Dimer, Quantitative (0.19-0.50) mg/L Puncture Site ABG pH (7.35-7.45) ABG pCO2 (35.0-45.0) mmHg ABG pO2 (80.0-100.0) mmHg ABG HCO3 (22.0-26.0) meq/L ABG O2 Saturation (96.0-97.0) % ABG Base Excess (-2-2.0) A-a Gradient mmHg O2 Delivery Device Oxygen Flow Rate FiO2 (21.00-100.00) % Sodium (136-145) mEq/L Potassium (3.5-5.1) mEq/L Chloride (98-107) mEq/L Carbon Dioxide (21-32) mEq/L Anion Gap (5-15) BUN (7-18) mg/dL Creatinine (0.7-1.3) mg/dL Est Cr Clr Drug Dosing mL/min Estimated GFR (MDRD) (>60) mL/min BUN/Creatinine Ratio (14-18) Glucose (80-115) mg/dL POC Glucose 144 H 256 H 289 H (80-115) mg/dL Calcium (8.5-10.1) mg/dL Phosphorus (2.6-4.7) mg/dL Magnesium (1.8-2.4) mg/dl Total Bilirubin (0.2-1.0) mg/dL AST (15-37) U/L ALT (16-63) U/L Alkaline Phosphatase (46-116) U/L C-Reactive Protein (<1.0) mg/dL Total Protein (6.4-8.2) g/dl Albumin (3.4-5.0) g/dl Globulin gm/dL Albumin/Globulin Ratio (1-2) 08/25/20 Range/Units 16:38 WBC (4.23-9.07) K/mm3 RBC (4.63-6.08) M/mm3 Hgb (13.7-17.5) gm/dl Hct (40.1-51.0) % MCV (79.0-92.2) fl MCH (25.7-32.2) pg MCHC (32.2-35.5) g/dl RDW Std Deviation (35.1-43.9) fL Plt Count (163-337) K/mm3 MPV (9.4-12.3) fl Neut % (Auto) (34.0-67.9) % Lymph % (Auto) (21.8-53.1) % [place] % (Auto) (5.3-12.2) % Eos % (Auto) (0.8-7.0) Baso % (Auto) (0.1-1.2) % Neut # (Auto) (1.78-5.38) K/mm3 Lymph # (Auto) (1.32-3.57) K/mm3 [place] # (Auto) (0.30-0.82) K/mm3 Eos # (Auto) (0.04-0.54) K/mm3 Baso # (Auto) (0.01-0.08) K/mm3 Manual Slide Review D-Dimer, Quantitative (0.19-0.50) mg/L Puncture Site ABG pH (7.35-7.45) ABG pCO2 (35.0-45.0) mmHg ABG pO2 (80.0-100.0) mmHg ABG HCO3 (22.0-26.0) meq/L ABG O2 Saturation (96.0-97.0) % ABG Base Excess (-2-2.0) A-a Gradient mmHg O2 Delivery Device Oxygen Flow Rate FiO2 (21.00-100.00) % Sodium (136-145) mEq/L Potassium (3.5-5.1) mEq/L Chloride (98-107) mEq/L Carbon Dioxide (21-32) mEq/L Anion Gap (5-15) BUN (7-18) mg/dL Creatinine (0.7-1.3) mg/dL Est Cr Clr Drug Dosing mL/min Estimated GFR (MDRD) (>60) mL/min BUN/Creatinine Ratio (14-18) Glucose (80-115) mg/dL POC Glucose 278 H (80-115) mg/dL Calcium (8.5-10.1) mg/dL Phosphorus (2.6-4.7) mg/dL Magnesium (1.8-2.4) mg/dl Total Bilirubin (0.2-1.0) mg/dL AST (15-37) U/L ALT (16-63) U/L Alkaline Phosphatase (46-116) U/L C-Reactive Protein (<1.0) mg/dL Total Protein (6.4-8.2) g/dl Albumin (3.4-5.0) g/dl Globulin gm/dL Albumin/Globulin Ratio (1-2) Med Orders - Current: Current Medications Acetaminophen (Tylenol) 650 mg PO Q4H PRN PRN Reason: Pain (Mild 1-3)/fever Hydrocodone Bitart/Acetaminophen ([place] 325-5 Mg) 1 tab PO Q4H PRN PRN Reason: Pain (moderate 4-6) Last Admin: 08/25/20 16:33 Dose: 1 tab Documented by: Albuterol (Proventil Hfa) 0 gm INH Q4H PRN PRN Reason: Shortness of Breath Alogliptin Benzoate (Alogliptin) 25 mg PO DAILY [facility] Last Admin: 08/25/20 08:20 Dose: 25 mg Documented by: Apixaban (Eliquis) 5 mg PO BID [facility] Last Admin: 08/25/20 08:20 Dose: 5 mg Documented by: Carvedilol (Coreg) 25 mg PO BID [facility] Last Admin: 08/25/20 08:20 Dose: 25 mg Documented by: Dexamethasone (Dexamethasone) 6 mg PO Q24H [facility] Stop: 08/31/20 17:31 Last Admin: 08/25/20 16:33 Dose: 6 mg Documented by: Dextrose/Water (Dextrose 50% In Water) 50 ml IVPUSH ASDIRECTED PRN PRN Reason: Hypoglycemia Famotidine (Pepcid) 20 mg PO BEDTIME [facility] Hydralazine HCl (Apresoline) 25 mg PO QID [facility] Last Admin: 08/25/20 16:33 Dose: 25 mg Documented by: Remdesivir 100 mg/ Sodium (Chloride) 100 mls @ 100 mls/hr IV Q24H [facility] Stop: 08/28/20 18:29 Last Admin: 08/25/20 16:34 Dose: 100 mls/hr Documented by: Ceftriaxone Sodium 2 gm/ (Sodium Chloride) 100 mls @ 200 mls/hr IV Q24H [facility] Stop: 08/29/20 20:31 Last Admin: 08/24/20 20:53 Dose: 200 mls/hr Documented by: Azithromycin 500 mg/ Sodium (Chloride) 250 mls @ 250 mls/hr IV Q24H [facility] Stop: 08/27/20 21:01 Last Admin: 08/24/20 22:28 Dose: 250 mls/hr Documented by: Insulin Glargine (Lantus) 50 unit SUBCUT BEDTIME [facility] Last Admin: 08/24/20 22:23 Dose: 50 units Documented by: Insulin Human Lispro (Humalog) 10 unit SUBCUT TIDPC [facility] Last Admin: 08/25/20 18:48 Dose: 10 unit Documented by: Insulin Human Lispro (Humalog) 0 unit SUBCUT QIDACANDBED [facility]; Protocol Last Admin: 08/25/20 16:39 Dose: 67 units Documented by: Losartan Potassium (Cozaar) 100 mg PO DAILY [facility] Last Admin: 08/25/20 08:20 Dose: 100 mg Documented by: Methimazole (Methimazole) 5 mg PO DAILY [facility] Last Admin: 08/25/20 08:20 Dose: 5 mg Documented by: Mirtazapine (Remeron) 45 mg PO BEDTIME [facility] Last Admin: 08/24/20 20:06 Dose: 45 mg Documented by: Miscellaneous Information (Remove Patch) 1 ea TRDERM DAILY [facility] Last Admin: 08/25/20 08:21 Dose: Not Given Documented by: Nicotine (Habitrol) 21 mg TRDERM DAILY [facility] Last Admin: 08/25/20 08:31 Dose: 21 mg Documented by: Nortriptyline HCl (Nortriptyline) 20 mg PO BEDTIME [facility] Last Admin: 08/24/20 20:04 Dose: 20 mg Documented by: Ondansetron HCl (Zofran) 4 mg IV Q4H PRN PRN Reason: Nausea/Vomiting Polyethylene Glycol (Miralax) 17 gm PO DAILY PRN PRN Reason: Constipation Rosuvastatin Calcium (Crestor) 20 mg PO BEDTIME [facility] Last Admin: 08/24/20 20:07 Dose: 20 mg Documented by: Senna/Docusate Sodium (Senna Plus) 1 tab PO BID PRN PRN Reason: Constipation Last Admin: 08/25/20 12:57 Dose: 1 tab Documented by: Sodium Bicarbonate (Sodium Bicarbonate) 650 mg PO BID [facility] Last Admin: 08/25/20 08:20 Dose: 650 mg Documented by: Discontinued Medications Carvedilol (Coreg) 25 mg PO BIDMEALS [facility] Last Admin: 08/24/20 18:43 Dose: Not Given Documented by: Famotidine (Pepcid) 20 mg PO BID [facility] Stop: 08/24/20 21:01 Last Admin: 08/24/20 20:05 Dose: 20 mg Documented by: Hydralazine HCl (Apresoline) 25 mg PO QID [facility] Last Admin: 08/24/20 17:19 Dose: Not Given Documented by: Hydromorphone HCl (Dilaudid) Confirm Administered Dose 0.5 mg .ROUTE .STK-MED ONE Stop: 08/24/20 14:07 Last Admin: 08/24/20 14:11 Dose: Not Given Documented by: Hydromorphone HCl (Dilaudid) 0.5 mg IVPUSH ONETIME STA Stop: 08/24/20 14:12 Last Admin: 08/24/20 14:15 Dose: 0.5 mg Documented by: Hydromorphone HCl (Dilaudid) 0.25 mg IVPUSH Q2H PRN PRN Reason: Pain (severe 7-10) Remdesivir 200 mg/ Sodium (Chloride) 250 mls @ 250 mls/hr IV ONETIME ONE Stop: 08/24/20 19:14 Last Admin: 08/24/20 18:31 Dose: 250 mls/hr Documented by: Sodium Chloride (Normal Saline) Confirm Administered Dose 250 mls @ as directed .ROUTE .STK-MED ONE Stop: 08/24/20 18:13 Last Admin: 08/24/20 18:35 Dose: Not Given Documented by: Influenza Virus Vaccine (Pharmacy To Dose - Influenza Vaccine) 1 each IM ONETIME ONE Stop: 08/24/20 14:37 Influenza Virus Vaccine (Fluzone Quad Syringe) 60 mcg IM .ONCE ONE Stop: 08/24/20 14:46 Ondansetron HCl (Zofran) 4 mg IVPUSH ONETIME ONE Stop: 08/24/20 13:40 Last Admin: 08/24/20 14:15 Dose: 4 mg Documented by: Oxycodone HCl (Oxycodone) 10 mg PO Q4H PRN PRN Reason: Pain (moderate 4-6) Last Admin: 08/24/20 20:07 Dose: 10 mg Documented by: - Exam Quality Assessment: Supplemental Oxygen General: Alert, Oriented HEENT: Pupils Equal, Mucous Membr. Moist/[place] Neck: Supple Lungs: Normal Respiratory Effort, Rales (Bibasilar) Cardiovascular: Irregular Rhythm (Irregular rate) GI/Abdominal Exam: Normal Bowel Sounds, Soft, Distended Extremities: Normal Inspection, Normal Capillary Refill Skin: Warm, Dry, Intact Psy/Mental Status: Alert, Normal Affect, Normal Mood Sepsis Event Note - Evaluation Sepsis Screening Result: No Definite Risk - Focused Exam Vital Signs: Vital Signs Temp Pulse Resp BP Pulse Ox Pulse Ox 08/25/20 16:39 158/89 H 08/25/20 16:33 158/89 H 08/25/20 15:37 98.2 F 127 H 20 151/104 H 93 L 08/25/20 15:24 26 H 08/25/20 15:00 23 H 08/25/20 14:00 16 08/25/20 13:00 28 H 08/25/20 12:58 143/90 H 08/25/20 12:57 19 143/90 H 08/25/20 12:00 20 08/25/20 11:34 98.8 F 57 L 20 128/76 97 08/25/20 11:33 98.4 F 94 16 125/72 97 08/25/20 11:00 17 08/25/20 10:27 24 H 08/25/20 09:26 96 08/25/20 08:20 107 H 146/83 H 08/25/20 08:13 100 16 146/83 H 88 L - Problem List & Annotations (1) COVID-19 SNOMED Code(s): 608672342 Code(s): U07.1 - COVID-19 Status: Acute Current Visit: Yes (2) Hypoxia SNOMED Code(s): 822573764 Code(s): R09.02 - HYPOXEMIA Status: Acute Current Visit: Yes (3) COPD (chronic obstructive pulmonary disease) SNOMED Code(s): 53790670 Code(s): J44.9 - CHRONIC OBSTRUCTIVE PULMONARY DISEASE, UNSPECIFIED Status: Acute Current Visit: No Qualifiers: COPD type: unspecified COPD Qualified Code(s): J44.9 - Chronic obstructive pulmonary disease, unspecified (4) Congestive heart failure (CHF) SNOMED Code(s): 50420297 Code(s): I50.9 - HEART FAILURE, UNSPECIFIED Status: Acute Current Visit: No Qualifiers: Heart failure type: unspecified Heart failure chronicity: acute Qualified Code(s): I50.9 - Heart failure, unspecified (5) Diabetic nephropathy associated with type 2 diabetes mellitus SNOMED Code(s): 351957975, 207080176 Code(s): E11.21 - TYPE 2 DIABETES MELLITUS WITH DIABETIC NEPHROPATHY Status: Acute Current Visit: No (6) Graves' disease SNOMED Code(s): 703353521 Code(s): E05.00 - THYROTOXICOSIS W DIFFUSE GOITER W/O THYROTOXIC CRISIS Status: Acute Current Visit: No (7) Hypertensive heart disease SNOMED Code(s): 94989887 Code(s): I11.9 - HYPERTENSIVE HEART DISEASE WITHOUT HEART FAILURE Status: Acute Current Visit: No Qualifiers: Heart failure presence: with heart failure Heart failure type: unspecified Qualified Code(s): I11.0 - Hypertensive heart disease with heart failure (8) Obstructive sleep apnea SNOMED Code(s): 75435089 Code(s): G47.33 - OBSTRUCTIVE SLEEP APNEA (ADULT) (PEDIATRIC) Status: Acute Current Visit: No (9) Pneumonia due to COVID-19 virus SNOMED Code(s): 170131817470661027 Code(s): U07.1 - COVID-19; J12.89 - OTHER VIRAL PNEUMONIA Status: Acute Current Visit: No (10) Uncontrolled type 2 diabetes mellitus SNOMED Code(s): 176449139, 500709791 Code(s): E11.65 - TYPE 2 DIABETES MELLITUS WITH HYPERGLYCEMIA Status: Acute Current Visit: No - Problem List Review Problem List Initiated/Reviewed/Updated: Yes - My Orders Last 24 Hours: My Active Orders 08/24/20 18:55 Admission Status [Patient Status] [ADT] Routine 08/24/20 19:00 Insulin Lispro [HumaLOG] 10 unit SUBCUT TIDPC 08/24/20 20:04 PROCALCITONIN [REF] Routine 08/24/20 20:30 cefTRIAXone [Rocephin] 2 gm Sodium Chloride 0.9% [Normal Saline] 100 ml IV Q24H 08/24/20 21:00 Apixaban [Eliquis] 5 mg PO BID Azithromycin [Zithromax] 500 mg Sodium Chloride 0.9% [Normal Saline] 250 ml IV Q24H Insulin Glarg,Human.Rec.Analog [LantUS] 50 unit SUBCUT BEDTIME Mirtazapine [Remeron] 45 mg PO BEDTIME Nortriptyline 20 mg PO BEDTIME Rosuvastatin [Crestor] 20 mg PO BEDTIME Sodium Bicarbonate 650 mg PO BID carvediloL [Coreg] 25 mg PO BID hydrALAZINE [Apresoline] 25 mg PO QID 08/24/20 21:25 RT BiPAP/CPAP [RC] ASDIRECTED Acetaminophen/HYDROcodone [[place] 325-5 MG] 1 tab PO Q4H PRN 08/24/20 22:00 Insulin Lispro [HumaLOG] See Protocol SUBCUT QIDACANDBED 08/25/20 09:00 Alogliptin Benzoate [Alogliptin] 25 mg PO DAILY Losartan [Cozaar] 100 mg PO DAILY Nicotine [Habitrol] 21 mg TRDERM DAILY Remove Patch 1 ea TRDERM DAILY methIMAzole 5 mg PO DAILY 08/25/20 09:39 Up With Assistance [RC] BID 08/25/20 17:30 Remdesivir (Eua) [Remdesivir (EUA)] 100 mg Sodium Chloride 0.9% [Normal Saline] 100 ml IV Q24H 08/25/20 21:00 Famotidine [Pepcid] 20 mg PO BEDTIME 08/26/20 05:11 C-REACTIVE PROTEIN [CHEM] AM CBC WITH AUTO DIFF [HEME] AM CMP [COMPREHENSIVE METABOLIC PN,CMP] [CHEM] AM DD [D-DIMER QUANTITATIVE] [COAG] AM MAGNESIUM [CHEM] AM PHOSPHORUS [CHEM] AM - Plan Plan:: 08/24/2020 Pneumonia secondary to COVID-19 COPD [id number] history, stopped smoking 2 weeks ago. Sleep apnea * Admitted on 08/20/2020 and discharged on 08/23/2020 after getting 2 units of convalescent plasma and being on room air for 2 days. * Patient returned to the emergency department today with worsening shortness of breath, PaO2 of 39 on room air, and cough. * Currently requiring 2 to 4 L of O2 via nasal cannula to keep oxygen saturations in the low 90s. * No significant change in chest x-ray since August 20 * Pertinent labs: WBC 11.53, PaO2 39 on room air, CRP 4.7, LDH 365, d-dimer 0.66, ferritin 184 Congestive heart failure with preserved ejection fraction Atrial fibrillation Hypertension Hyperlipidemia * Echocardiogram from June 2019 showed ejection fraction of 55 to 60%. * Home dose of Lasix was 40 mg twice daily, held during last hospitalization. * On Eliquis 5 mg twice daily for stroke prevention * Blood pressure medications adjusted last hospitalization: Carvedilol 25 mg twice daily, losartan 100 mg daily, hydralazine 25 mg 4 times daily. Insulin-dependent diabetespoorly controlled * Hemoglobin A1c 9.5 * Increase Lantus to 50 units at bedtime and Humalog 10 units with each meal. * On Trulicity and alogliptin at home. Stage III-IV chronic renal insufficiency * GFR is up to 30 * Baseline appears to be in the upper 20s to low 30 * He did not receive remdesivir last visit secondary to poor renal function. Graves' disease * TSH normal * Methimazole 5 mg daily. 08/25/2020 * No significant improvement in hypoxemia secondary to pneumonia and COVID-19. * Currently on 6 L nasal cannula. * WBC down to 7.8, d-dimer 0.45, CRP up to 10.5 * Worsening renal function with GFR of 26 and creatinine of 2.5 * Blood pressures moderately controlled T-max of 100.6 * Blood sugars still in the 200s. * Echocardiogram pending * Day 2 remdesivir, dexamethasone, Rocephin, azithromycin Plan * Admit to floor for COVID 19 treatment. * Continuous pulse ox and telemetry. * Continue remdesivir. If renal function continues to be low tomorrow will have to stop. * Day 2 of dexamethasone 6 mg daily. * Close monitoring and treatment of hyperglycemia. * FiO2 to keep SPO2 greater than 88%. * ABGs as needed * CPAP/BiPAP while asleep. * Day 2 of Rocephin 200 mg daily for 5 days and azithromycin 5 mg daily for 3 days. * Continue alogliptin, Lantus 50 units daily, Humalog 10 units after full meals, hydralazine, Coreg, losartan, and famotidine. * Sliding scale insulin moderate level * I-S and Acapella * Strict I's and O's and daily weights * COVID labs in the morning VTE prophylaxis with Eliquis CODE STATUS: Full code Disposition admit to medical floor for hypoxemia and treatment of COVID pneumonia.
[2020-08-25] MEDS: Nortriptyline 10 MG Cap PO SCH (20:27)
[2020-08-25] MEDS: Famotidine 20 MG Tab PO SCH (20:28)
[2020-08-25] MEDS: Rosuvastatin 10 MG Tab PO SCH (20:28)
[2020-08-25] MEDS: Mirtazapine 15 MG Tab PO SCH (20:30)
[2020-08-25] MEDS: cefTRIAXone 2 GM in Sodium Chloride 0.9% 100 ML IV SCH (20:34)
[2020-08-25] MEDS: Insulin Glarg,Human.Rec.Analog 100 Unit/ML SUBCUT SCH (20:45)
[2020-08-25] MEDS: Azithromycin 500 MG in Sodium Chloride 0.9% 250 ML IV SCH (21:19)
[2020-08-26] MEDS: Insulin Lispro 100 Units/ML 3 ML Vial SUBCUT SCH ×7 (06:48→22:06)
[2020-08-26] MEDS ORDERED: Furosemide 20 MG/2 ML VIAL IVPUSH ONE (08:00)
[2020-08-26] MEDS: Sodium Bicarbonate 650 MG Tab PO SCH ×2 (08:44→20:13)
[2020-08-26] MEDS: Methimazole 5 MG Tab PO SCH (08:44)
[2020-08-26] MEDS: Apixaban 5 MG Tab PO SCH ×2 (08:45→20:19)
[2020-08-26] MEDS: hydrALAZINE 25 MG Tab PO SCH ×4 (08:48→20:18)
[2020-08-26] MEDS: Carvedilol 12.5 MG Tab PO SCH ×2 (08:48→20:13)
[2020-08-26] MEDS: Nicotine 21 MG/24 Hr Patch TRDERM SCH (08:50)
[2020-08-26] MEDS ORDERED: Insulin Glarg,Human.Rec.Analog 100 Unit/ML SUBCUT SCH (09:00)
[2020-08-26] MEDS: amLODIPine 5 MG Tab PO SCH (12:11)
[2020-08-26] MEDS: Acetaminophen/HYDROcodone 325-5 MG Tab PO PRN (14:38)
--- NOTE | 2020-08-26 15:50 | PCM.PN ---
- General Info Date of Service: 08/26/20 Admission Dx/Problem (Free Text): Admission Diagnosis/Problem Admission Diagnosis/Problem Hypoxia Subjective Update: Patient continues to improve. He states he is feeling much better today. Patient had a bowel movement yesterday. Appetite is improving. Functional Status: Reports: Pain Controlled - Review of Systems General: Reports: Fatigue HEENT: Reports: No Symptoms Pulmonary: Reports: Shortness of Breath, Cough Cardiovascular: Reports: No Symptoms Gastrointestinal: Reports: No Symptoms Musculoskeletal: Reports: No Symptoms Skin: Reports: No Symptoms Psychiatric: Reports: No Symptoms - Patient Data Vitals - Most Recent: Last Vital Signs Temp 97.7 F 08/26/20 03:52 Pulse 105 H 08/26/20 08:48 Resp 18 08/26/20 03:52 BP 157/90 H 08/26/20 12:11 Pulse Ox 95 08/26/20 09:45 Weight - Most Recent: 109.905 kg I&O - Last 24 Hours: Intake & Output 08/26/20 08/26/20 08/26/20 06:59 14:59 22:59 Intake Total 745 720 Output Total 750 Balance -5 720 Lab Results Last 24 Hours: Laboratory Results - last 24 hr 08/25/20 08/25/20 08/25/20 Range/Units 05:47 16:38 20:44 WBC (4.23-9.07) K/mm3 RBC (4.63-6.08) M/mm3 Hgb (13.7-17.5) gm/dl Hct (40.1-51.0) % MCV (79.0-92.2) fl MCH (25.7-32.2) pg MCHC (32.2-35.5) g/dl RDW Std Deviation (35.1-43.9) fL Plt Count (163-337) K/mm3 MPV (9.4-12.3) fl Neut % (Auto) (34.0-67.9) % Lymph % (Auto) (21.8-53.1) % Perry % (Auto) (5.3-12.2) % Eos % (Auto) (0.8-7.0) Baso % (Auto) (0.1-1.2) % Neut # (Auto) (1.78-5.38) K/mm3 Lymph # (Auto) (1.32-3.57) K/mm3 Perry # (Auto) (0.30-0.82) K/mm3 Eos # (Auto) (0.04-0.54) K/mm3 Baso # (Auto) (0.01-0.08) K/mm3 Manual Slide Review D-Dimer, Quantitative (0.19-0.50) mg/L Sodium (136-145) mEq/L Potassium (3.5-5.1) mEq/L Chloride (98-107) mEq/L Carbon Dioxide (21-32) mEq/L Anion Gap (5-15) BUN (7-18) mg/dL Creatinine (0.7-1.3) mg/dL Est Cr Clr Drug Dosing mL/min Estimated GFR (MDRD) (>60) mL/min BUN/Creatinine Ratio (14-18) Glucose (80-115) mg/dL POC Glucose 278 H 249 H (80-115) mg/dL Calcium (8.5-10.1) mg/dL Phosphorus (2.6-4.7) mg/dL Magnesium (1.8-2.4) mg/dl Total Bilirubin (0.2-1.0) mg/dL AST (15-37) U/L ALT (16-63) U/L Alkaline Phosphatase (46-116) U/L C-Reactive Protein (<1.0) mg/dL Total Protein (6.4-8.2) g/dl Albumin (3.4-5.0) g/dl Globulin gm/dL Albumin/Globulin Ratio (1-2) Procalcitonin 0.18 H (<0.10) ng/mL 08/26/20 08/26/20 08/26/20 Range/Units 05:09 06:46 06:55 WBC 8.87 (4.23-9.07) K/mm3 RBC 3.73 L (4.63-6.08) M/mm3 Hgb 11.8 L (13.7-17.5) gm/dl Hct 36.7 L (40.1-51.0) % MCV 98.4 H (79.0-92.2) fl MCH 31.6 (25.7-32.2) pg MCHC 32.2 (32.2-35.5) g/dl RDW Std Deviation 52.7 H (35.1-43.9) fL Plt Count 131 L (163-337) K/mm3 MPV 11.7 (9.4-12.3) fl Neut % (Auto) 80.0 H (34.0-67.9) % Lymph % (Auto) 6.9 L (21.8-53.1) % Perry % (Auto) 11.2 (5.3-12.2) % Eos % (Auto) 0 L (0.8-7.0) Baso % (Auto) 0.1 (0.1-1.2) % Neut # (Auto) 7.10 H (1.78-5.38) K/mm3 Lymph # (Auto) 0.61 L (1.32-3.57) K/mm3 Perry # (Auto) 0.99 H (0.30-0.82) K/mm3 Eos # (Auto) 0.00 L (0.04-0.54) K/mm3 Baso # (Auto) 0.01 (0.01-0.08) K/mm3 Manual Slide Review Abnormal smear D-Dimer, Quantitative 0.71 H (0.19-0.50) mg/L Sodium (136-145) mEq/L Potassium (3.5-5.1) mEq/L Chloride (98-107) mEq/L Carbon Dioxide (21-32) mEq/L Anion Gap (5-15) BUN (7-18) mg/dL Creatinine (0.7-1.3) mg/dL Est Cr Clr Drug Dosing mL/min Estimated GFR (MDRD) (>60) mL/min BUN/Creatinine Ratio (14-18) Glucose (80-115) mg/dL POC Glucose 286 H (80-115) mg/dL Calcium (8.5-10.1) mg/dL Phosphorus (2.6-4.7) mg/dL Magnesium (1.8-2.4) mg/dl Total Bilirubin (0.2-1.0) mg/dL AST (15-37) U/L ALT (16-63) U/L Alkaline Phosphatase (46-116) U/L C-Reactive Protein (<1.0) mg/dL Total Protein (6.4-8.2) g/dl Albumin (3.4-5.0) g/dl Globulin gm/dL Albumin/Globulin Ratio (1-2) Procalcitonin (<0.10) ng/mL 08/26/20 08/26/20 08/26/20 Range/Units 06:55 09:01 11:16 WBC (4.23-9.07) K/mm3 RBC (4.63-6.08) M/mm3 Hgb (13.7-17.5) gm/dl Hct (40.1-51.0) % MCV (79.0-92.2) fl MCH (25.7-32.2) pg MCHC (32.2-35.5) g/dl RDW Std Deviation (35.1-43.9) fL Plt Count (163-337) K/mm3 MPV (9.4-12.3) fl Neut % (Auto) (34.0-67.9) % Lymph % (Auto) (21.8-53.1) % Perry % (Auto) (5.3-12.2) % Eos % (Auto) (0.8-7.0) Baso % (Auto) (0.1-1.2) % Neut # (Auto) (1.78-5.38) K/mm3 Lymph # (Auto) (1.32-3.57) K/mm3 [place] # (Auto) (0.30-0.82) K/mm3 Eos # (Auto) (0.04-0.54) K/mm3 Baso # (Auto) (0.01-0.08) K/mm3 Manual Slide Review D-Dimer, Quantitative (0.19-0.50) mg/L Sodium 140 (136-145) mEq/L Potassium 5.8 H (3.5-5.1) mEq/L Chloride 105 (98-107) mEq/L Carbon Dioxide 29 (21-32) mEq/L Anion Gap 11.8 (5-15) BUN 71 H (7-18) mg/dL Creatinine 2.5 H (0.7-1.3) mg/dL Est Cr Clr Drug Dosing 31.63 mL/min Estimated GFR (MDRD) 26 (>60) mL/min BUN/Creatinine Ratio 28.4 H (14-18) Glucose 340 H (80-115) mg/dL POC Glucose 375 H 314 H (80-115) mg/dL Calcium 8.3 L (8.5-10.1) mg/dL Phosphorus 4.5 (2.6-4.7) mg/dL Magnesium 3.2 H (1.8-2.4) mg/dl Total Bilirubin 0.3 (0.2-1.0) mg/dL AST 28 (15-37) U/L ALT 52 (16-63) U/L Alkaline Phosphatase 80 (46-116) U/L C-Reactive Protein 5.7 H* (<1.0) mg/dL Total Protein 6.6 (6.4-8.2) g/dl Albumin 2.5 L (3.4-5.0) g/dl Globulin 4.1 gm/dL Albumin/Globulin Ratio 0.6 L (1-2) Procalcitonin (<0.10) ng/mL 08/26/20 Range/Units 14:02 WBC (4.23-9.07) K/mm3 RBC (4.63-6.08) M/mm3 Hgb (13.7-17.5) gm/dl Hct (40.1-51.0) % MCV (79.0-92.2) fl MCH (25.7-32.2) pg MCHC (32.2-35.5) g/dl RDW Std Deviation (35.1-43.9) fL Plt Count (163-337) K/mm3 MPV (9.4-12.3) fl Neut % (Auto) (34.0-67.9) % Lymph % (Auto) (21.8-53.1) % Perry % (Auto) (5.3-12.2) % Eos % (Auto) (0.8-7.0) Baso % (Auto) (0.1-1.2) % Neut # (Auto) (1.78-5.38) K/mm3 Lymph # (Auto) (1.32-3.57) K/mm3 Perry # (Auto) (0.30-0.82) K/mm3 Eos # (Auto) (0.04-0.54) K/mm3 Baso # (Auto) (0.01-0.08) K/mm3 Manual Slide Review D-Dimer, Quantitative (0.19-0.50) mg/L Sodium (136-145) mEq/L Potassium (3.5-5.1) mEq/L Chloride (98-107) mEq/L Carbon Dioxide (21-32) mEq/L Anion Gap (5-15) BUN (7-18) mg/dL Creatinine (0.7-1.3) mg/dL Est Cr Clr Drug Dosing mL/min Estimated GFR (MDRD) (>60) mL/min BUN/Creatinine Ratio (14-18) Glucose (80-115) mg/dL POC Glucose 330 H (80-115) mg/dL Calcium (8.5-10.1) mg/dL Phosphorus (2.6-4.7) mg/dL Magnesium (1.8-2.4) mg/dl Total Bilirubin (0.2-1.0) mg/dL AST (15-37) U/L ALT (16-63) U/L Alkaline Phosphatase (46-116) U/L C-Reactive Protein (<1.0) mg/dL Total Protein (6.4-8.2) g/dl Albumin (3.4-5.0) g/dl Globulin gm/dL Albumin/Globulin Ratio (1-2) Procalcitonin (<0.10) ng/mL Med Orders - Current: Current Medications Acetaminophen (Tylenol) 650 mg PO Q4H PRN PRN Reason: Pain (Mild 1-3)/fever Hydrocodone Bitart/Acetaminophen ([place] 325-5 Mg) 1 tab PO Q4H PRN PRN Reason: Pain (moderate 4-6) Last Admin: 08/26/20 14:38 Dose: 1 tab Documented by: Albuterol (Proventil Hfa) 0 gm INH Q4H PRN PRN Reason: Shortness of Breath Alogliptin Benzoate (Alogliptin) 12.5 mg PO DAILY [facility] Amlodipine Besylate (Norvasc) 5 mg PO DAILY [facility] Last Admin: 08/26/20 12:11 Dose: 5 mg Documented by: Apixaban (Eliquis) 5 mg PO BID [facility] Last Admin: 08/26/20 08:45 Dose: 5 mg Documented by: Carvedilol (Coreg) 25 mg PO BID [facility] Last Admin: 08/26/20 08:48 Dose: 25 mg Documented by: Dexamethasone (Dexamethasone) 6 mg PO Q24H [facility] Stop: 08/31/20 17:31 Last Admin: 08/25/20 16:33 Dose: 6 mg Documented by: Dextrose/Water (Dextrose 50% In Water) 50 ml IVPUSH ASDIRECTED PRN PRN Reason: Hypoglycemia Famotidine (Pepcid) 20 mg PO BEDTIME [facility] Last Admin: 08/25/20 20:28 Dose: 20 mg Documented by: Hydralazine HCl (Apresoline) 25 mg PO QID [facility] Last Admin: 08/26/20 12:09 Dose: 25 mg Documented by: Ceftriaxone Sodium 2 gm/ (Sodium Chloride) 100 mls @ 200 mls/hr IV Q24H [facility] Stop: 08/28/20 20:59 Last Admin: 08/25/20 20:34 Dose: 200 mls/hr Documented by: Azithromycin 500 mg/ Sodium (Chloride) 250 mls @ 250 mls/hr IV Q24H [facility] Stop: 08/26/20 21:59 Last Admin: 08/25/20 21:19 Dose: 250 mls/hr Documented by: Insulin Glargine (Lantus) 50 unit SUBCUT BEDTIME [facility] Last Admin: 08/25/20 20:45 Dose: 50 units Documented by: Insulin Glargine (Lantus) 10 unit SUBCUT DAILY [facility] Last Admin: 08/26/20 09:02 Dose: 10 units Documented by: Insulin Human Lispro (Humalog) 10 unit SUBCUT TIDPC [facility] Last Admin: 08/26/20 14:03 Dose: 10 unit Documented by: Insulin Human Lispro (Humalog) 0 unit SUBCUT QIDACANDBED [facility]; Protocol Last Admin: 08/26/20 12:07 Dose: 8 units Documented by: Methimazole (Methimazole) 5 mg PO DAILY [facility] Last Admin: 08/26/20 08:44 Dose: 5 mg Documented by: Mirtazapine (Remeron) 45 mg PO BEDTIME [facility] Last Admin: 08/25/20 20:30 Dose: 45 mg Documented by: Miscellaneous Information (Remove Patch) 1 ea TRDERM DAILY [facility] Last Admin: 08/26/20 08:50 Dose: 1 ea Documented by: Nicotine (Habitrol) 21 mg TRDERM DAILY [facility] Last Admin: 08/26/20 08:50 Dose: 21 mg Documented by: Nortriptyline HCl (Nortriptyline) 20 mg PO BEDTIME [facility] Last Admin: 08/25/20 20:27 Dose: 20 mg Documented by: Ondansetron HCl (Zofran) 4 mg IV Q4H PRN PRN Reason: Nausea/Vomiting Polyethylene Glycol (Miralax) 17 gm PO DAILY PRN PRN Reason: Constipation Rosuvastatin Calcium (Crestor) 20 mg PO BEDTIME [facility] Last Admin: 08/25/20 20:28 Dose: 20 mg Documented by: Senna/Docusate Sodium (Senna Plus) 1 tab PO BID PRN PRN Reason: Constipation Last Admin: 08/25/20 12:57 Dose: 1 tab Documented by: Sodium Bicarbonate (Sodium Bicarbonate) 650 mg PO BID [facility] Last Admin: 08/26/20 08:44 Dose: 650 mg Documented by: Discontinued Medications Alogliptin Benzoate (Alogliptin) 25 mg PO DAILY [facility] Last Admin: 08/26/20 08:44 Dose: 25 mg Documented by: Carvedilol (Coreg) 25 mg PO BIDMEALS [facility] Last Admin: 08/24/20 18:43 Dose: Not Given Documented by: Famotidine (Pepcid) 20 mg PO BID [facility] Stop: 08/24/20 21:01 Last Admin: 08/24/20 20:05 Dose: 20 mg Documented by: Furosemide (Lasix) 20 mg IVPUSH NOW ONE Stop: 08/26/20 08:01 Last Admin: 08/26/20 08:45 Dose: 20 mg Documented by: Hydralazine HCl (Apresoline) 25 mg PO QID [facility] Last Admin: 08/24/20 17:19 Dose: Not Given Documented by: Hydromorphone HCl (Dilaudid) Confirm Administered Dose 0.5 mg .ROUTE .STK-MED ONE Stop: 08/24/20 14:07 Last Admin: 08/24/20 14:11 Dose: Not Given Documented by: Hydromorphone HCl (Dilaudid) 0.5 mg IVPUSH ONETIME [facility] Stop: 08/24/20 14:12 Last Admin: 08/24/20 14:15 Dose: 0.5 mg Documented by: Hydromorphone HCl (Dilaudid) 0.25 mg IVPUSH Q2H PRN PRN Reason: Pain (severe 7-10) Remdesivir 100 mg/ Sodium (Chloride) 100 mls @ 100 mls/hr IV Q24H [facility] Stop: 08/28/20 18:29 Last Admin: 08/25/20 16:34 Dose: 100 mls/hr Documented by: Remdesivir 200 mg/ Sodium (Chloride) 250 mls @ 250 mls/hr IV ONETIME ONE Stop: 08/24/20 19:14 Last Admin: 08/24/20 18:31 Dose: 250 mls/hr Documented by: Sodium Chloride (Normal Saline) Confirm Administered Dose 250 mls @ as directed .ROUTE .STK-MED ONE Stop: 08/24/20 18:13 Last Admin: 08/24/20 18:35 Dose: Not Given Documented by: Influenza Virus Vaccine (Pharmacy To Dose - Influenza Vaccine) 1 each IM ONETIME ONE Stop: 08/24/20 14:37 Influenza Virus Vaccine (Fluzone Quad Syringe) 60 mcg IM .ONCE ONE Stop: 08/24/20 14:46 Losartan Potassium (Cozaar) 100 mg PO DAILY [facility] Last Admin: 08/25/20 08:20 Dose: 100 mg Documented by: Ondansetron HCl (Zofran) 4 mg IVPUSH ONETIME ONE Stop: 08/24/20 13:40 Last Admin: 08/24/20 14:15 Dose: 4 mg Documented by: Oxycodone HCl (Oxycodone) 10 mg PO Q4H PRN PRN Reason: Pain (moderate 4-6) Last Admin: 08/24/20 20:07 Dose: 10 mg Documented by: - Exam Quality Assessment: Supplemental Oxygen General: Alert, Oriented HEENT: Pupils Equal, Mucous Membr. Moist/[place] Neck: Supple Lungs: Normal Respiratory Effort, Decreased Breath Sounds Cardiovascular: Irregular Rhythm GI/Abdominal Exam: Normal Bowel Sounds, Soft, Non-Tender, Distended (Morbidly obese) Extremities: Normal Inspection, Normal Capillary Refill Skin: Warm, Dry, Intact Psy/Mental Status: Alert, Normal Affect, Normal Mood EKG INTERPRETATION EKG Date: 08/26/20 Rhythm: A-Fib Rate (Beats/Min): 98 [place]: Normal P-Wave: Absent QRS: Normal ST-T: Normal QT: Normal Sepsis Event Note - Evaluation Sepsis Screening Result: No Definite Risk - Focused Exam Vital Signs: Vital Signs Temp Pulse Resp BP BP Pulse Ox Pulse Ox 08/26/20 12:11 157/90 H 08/26/20 12:09 157/90 H 08/26/20 09:45 95 08/26/20 09:21 08/26/20 08:48 105 H 160/99 H 08/26/20 08:47 160/99 H 08/26/20 05:45 08/26/20 03:52 97.7 F 74 18 93 L Pulse Ox 08/26/20 12:11 08/26/20 12:09 08/26/20 09:45 08/26/20 09:21 95 08/26/20 08:48 08/26/20 08:47 08/26/20 05:45 93 L 08/26/20 03:52 - Problem List & Annotations (1) COVID-19 SNOMED Code(s): 356817159 Code(s): U07.1 - COVID-19 Status: Acute Current Visit: Yes (2) Hypoxia SNOMED Code(s): 295057829 Code(s): R09.02 - HYPOXEMIA Status: Acute Current Visit: Yes (3) COPD (chronic obstructive pulmonary disease) SNOMED Code(s): 29100966 Code(s): J44.9 - CHRONIC OBSTRUCTIVE PULMONARY DISEASE, UNSPECIFIED Status: Acute Current Visit: No Qualifiers: COPD type: unspecified COPD Qualified Code(s): J44.9 - Chronic obstructive pulmonary disease, unspecified (4) Congestive heart failure (CHF) SNOMED Code(s): 76376106 Code(s): I50.9 - HEART FAILURE, UNSPECIFIED Status: Acute Current Visit: No Qualifiers: Heart failure type: unspecified Heart failure chronicity: acute Qualified Code(s): I50.9 - Heart failure, unspecified (5) Diabetic nephropathy associated with type 2 diabetes mellitus SNOMED Code(s): 367154315, 162467162 Code(s): E11.21 - TYPE 2 DIABETES MELLITUS WITH DIABETIC NEPHROPATHY Status: Acute Current Visit: No (6) Graves' disease SNOMED Code(s): 435173990 Code(s): E05.00 - THYROTOXICOSIS W DIFFUSE GOITER W/O THYROTOXIC CRISIS Status: Acute Current Visit: No (7) Hypertensive heart disease SNOMED Code(s): 68030759 Code(s): I11.9 - HYPERTENSIVE HEART DISEASE WITHOUT HEART FAILURE Status: Acute Current Visit: No Qualifiers: Heart failure presence: with heart failure Heart failure type: unspecified Qualified Code(s): I11.0 - Hypertensive heart disease with heart failure (8) Obstructive sleep apnea SNOMED Code(s): 13826964 Code(s): G47.33 - OBSTRUCTIVE SLEEP APNEA (ADULT) (PEDIATRIC) Status: Acute Current Visit: No (9) Pneumonia due to COVID-19 virus SNOMED Code(s): 504544739133247468 Code(s): U07.1 - COVID-19; J12.89 - OTHER VIRAL PNEUMONIA Status: Acute Current Visit: No (10) Uncontrolled type 2 diabetes mellitus SNOMED Code(s): 993479845, 338449974 Code(s): E11.65 - TYPE 2 DIABETES MELLITUS WITH HYPERGLYCEMIA Status: Acute Current Visit: No - Problem List Review Problem List Initiated/Reviewed/Updated: Yes - My Orders Last 24 Hours: My Active Orders 08/25/20 21:00 Famotidine [Pepcid] 20 mg PO BEDTIME 08/26/20 07:28 CXR [Chest 1V Frontal] [CR] AM 08/26/20 08:12 EKG Documentation Completion [RC] ROUTINE 08/26/20 09:00 Consult to Diabetic Nurse Specialist [CONS] Routine Insulin Glarg,Human.Rec.Analog [LantUS] 10 unit SUBCUT DAILY 08/26/20 10:30 amLODIPine [Norvasc] 5 mg PO DAILY 08/26/20 10:39 PT Evaluation and Treatment [CONS] Routine 08/27/20 09:00 Alogliptin Benzoate [Alogliptin] 12.5 mg PO DAILY - Plan Plan:: 08/24/2020 Pneumonia secondary to COVID-19 COPD [id number] history, stopped smoking 2 weeks ago. Sleep apnea * Admitted on 08/20/2020 and discharged on 08/23/2020 after getting 2 units of convalescent plasma and being on room air for 2 days. * Patient returned to the emergency department today with worsening shortness of breath, PaO2 of 39 on room air, and cough. * Currently requiring 2 to 4 L of O2 via nasal cannula to keep oxygen saturations in the low 90s. * No significant change in chest x-ray since August 20 * Pertinent labs: WBC 11.53, PaO2 39 on room air, CRP 4.7, LDH 365, d-dimer 0.66, ferritin 184 Congestive heart failure with preserved ejection fraction Atrial fibrillation Hypertension Hyperlipidemia * Echocardiogram from June 2019 showed ejection fraction of 55 to 60%. * Home dose of Lasix was 40 mg twice daily, held during last hospitalization. * On Eliquis 5 mg twice daily for stroke prevention * Blood pressure medications adjusted last hospitalization: Carvedilol 25 mg twice daily, losartan 100 mg daily, hydralazine 25 mg 4 times daily. Insulin-dependent diabetespoorly controlled * Hemoglobin A1c 9.5 * Increase Lantus to 50 units at bedtime and Humalog 10 units with each meal. * On Trulicity and alogliptin at home. Stage III-IV chronic renal insufficiency * GFR is up to 30 * Baseline appears to be in the upper 20s to low 30 * He did not receive remdesivir last visit secondary to poor renal function. Graves' disease * TSH normal * Methimazole 5 mg daily. 08/25/2020 * No significant improvement in hypoxemia secondary to pneumonia and COVID-19. * Currently on 6 L nasal cannula. * WBC down to 7.8, d-dimer 0.45, CRP up to 10.5 * Worsening renal function with GFR of 26 and creatinine of 2.5 * Blood pressures moderately controlled T-max of 100.6 * Blood sugars still in the 200s. * Echocardiogram pending * Day 2 remdesivir, dexamethasone, Rocephin, azithromycin 08/26/2020 Pneumonia secondary to COVID-19 COPD [id number] history, stopped smoking 2 weeks ago. Sleep apnea * Improving oxygenation. Currently on 1 L nasal cannula with saturation in the mid 90s. * Afebrile over the last 24 hours * WBC 8.9, CRP 5.7 * Chest x-ray shows no significant change in bilateral pneumonia. Stage IV chronic renal insufficiency Hyperkalemia * Renal insufficiency continues to be poor. No change overnight with a GFR of 26 and creatinine of 2.5. * Remdesivir will have to be held because of his renal insufficiency. Insulin-dependent diabetespoorly controlled * Blood sugars continue in the 300s even with increase in the insulin * Remdesivir worsening blood sugars and his baseline control is poor Congestive heart failure with preserved ejection fraction Atrial fibrillation Hypertension Hyperlipidemia * Blood pressure continues to be elevated even with the addition of amlodipine * Limited echocardiogram 1. Left ventricular ejection fraction, by visual estimation, is 55%. 2. Technically difficult study with suboptimal image quality. Probably normal regional wall motion. 3. Normal right ventricular systolic function. 4. There is mild aortic valve sclerosis without stenosis. 5. No evidence of mitral valve regurgitation. 6. No tricuspid valve regurgitation. 7. The right ventricular systolic pressure is unable to be determined. * Cozaar held secondary to hyperkalemia Plan * Continuous pulse ox and telemetry. * Continue remdesivir. If renal function continues to be low tomorrow will have to stop. * Day 3 of dexamethasone 6 mg daily. * Close monitoring and treatment of hyperglycemia. * FiO2 to keep SPO2 greater than 88%. * ABGs as needed * CPAP/BiPAP while asleep. * Day 3 of Rocephin 200 mg daily for 5 days and azithromycin 500 mg daily for 3 days. * Continue alogliptin, Lantus 10 units in the morning and 50 units in the evening, increase Humalog to 15 units after full meals, * Stop Cozaar secondary to hypercalcemia * Sliding scale insulin moderate level * I-S and Acapella * Strict I's and O's and daily weights * COVID labs in the morning VTE prophylaxis with Eliquis CODE STATUS: Full code Disposition admit to medical floor for hypoxemia and treatment of COVID pneumonia.
[2020-08-26] MEDS: Dexamethasone 4 MG Tab PO SCH (17:54)
[2020-08-26] MEDS: Famotidine 20 MG Tab PO SCH (20:11)
[2020-08-26] MEDS: Nortriptyline 10 MG Cap PO SCH (20:11)
[2020-08-26] MEDS: Mirtazapine 15 MG Tab PO SCH (20:12)
[2020-08-26] MEDS: Rosuvastatin 10 MG Tab PO SCH (20:13)
[2020-08-26] MEDS: cefTRIAXone 2 GM in Sodium Chloride 0.9% 100 ML IV SCH (20:24)
[2020-08-26] MEDS: HYDROmorphone 0.5 MG/0.5 ML Syringe IVPUSH PRN (21:35)
[2020-08-26] MEDS: Azithromycin 500 MG in Sodium Chloride 0.9% 250 ML IV SCH (21:58)
[2020-08-26] MEDS: Insulin Glarg,Human.Rec.Analog 100 Unit/ML SUBCUT SCH (22:04)
[2020-08-27] MEDS: HYDROmorphone 0.5 MG/0.5 ML Syringe IVPUSH PRN ×5 (01:37→23:24)
[2020-08-27] MEDS: Acetaminophen/HYDROcodone 325-5 MG Tab PO PRN ×2 (03:42→09:33)
[2020-08-27] MEDS: Insulin Lispro 100 Units/ML 3 ML Vial SUBCUT SCH ×7 (07:51→22:19)
[2020-08-27] MEDS: Sodium Bicarbonate 650 MG Tab PO SCH ×2 (09:35→22:23)
[2020-08-27] MEDS: Methimazole 5 MG Tab PO SCH (09:35)
[2020-08-27] MEDS: Apixaban 5 MG Tab PO SCH ×2 (09:35→22:23)
[2020-08-27] MEDS: Carvedilol 12.5 MG Tab PO SCH ×2 (09:36→22:22)
[2020-08-27] MEDS: amLODIPine 5 MG Tab PO SCH (09:36)
[2020-08-27] MEDS: hydrALAZINE 25 MG Tab PO SCH ×4 (09:37→22:23)
[2020-08-27] MEDS: Nicotine 21 MG/24 Hr Patch TRDERM SCH (09:38)
[2020-08-27] MEDS: Insulin Glarg,Human.Rec.Analog 100 Unit/ML SUBCUT SCH ×2 (09:38→22:20)
[2020-08-27] MEDS ORDERED: Insulin Lispro 100 Units/ML 3 ML Vial SUBCUT ONE (13:37)
--- NOTE | 2020-08-27 13:38 | PCM.PN ---
- General Info Date of Service: 08/27/20 Admission Dx/Problem (Free Text): Admission Diagnosis/Problem Admission Diagnosis/Problem Hypoxia Subjective Update: Patient continues to improve. He is on room air. Unfortunately, his blood sugars have been very high secondary to poorly controlled prior to admission and dexamethasone. - Review of Systems General: Reports: No Symptoms HEENT: Reports: No Symptoms Pulmonary: Reports: No Symptoms Cardiovascular: Reports: No Symptoms Gastrointestinal: Reports: No Symptoms Musculoskeletal: Reports: No Symptoms Skin: Reports: No Symptoms Neurological: Reports: No Symptoms Psychiatric: Reports: No Symptoms - Patient Data Vitals - Most Recent: Last Vital Signs Temp 97.5 F 08/27/20 09:30 Pulse 58 L 08/27/20 09:36 Resp 21 H 08/27/20 09:30 BP 138/89 08/27/20 09:37 Pulse Ox 94 L 08/27/20 09:32 Weight - Most Recent: 109.089 kg I&O - Last 24 Hours: Intake & Output 08/26/20 08/27/20 08/27/20 22:59 06:59 14:59 Intake Total 470 710 660 Output Total 1075 800 Balance -605 -90 660 Lab Results Last 24 Hours: Laboratory Results - last 24 hr 08/26/20 08/26/20 08/26/20 Range/Units 14:02 17:50 21:50 WBC (4.23-9.07) K/mm3 RBC (4.63-6.08) M/mm3 Hgb (13.7-17.5) gm/dl Hct (40.1-51.0) % MCV (79.0-92.2) fl MCH (25.7-32.2) pg MCHC (32.2-35.5) g/dl RDW Std Deviation (35.1-43.9) fL Plt Count (163-337) K/mm3 MPV (9.4-12.3) fl Neut % (Auto) (34.0-67.9) % Lymph % (Auto) (21.8-53.1) % [place] % (Auto) (5.3-12.2) % Eos % (Auto) (0.8-7.0) Baso % (Auto) (0.1-1.2) % Neut # (Auto) (1.78-5.38) K/mm3 Lymph # (Auto) (1.32-3.57) K/mm3 [place] # (Auto) (0.30-0.82) K/mm3 Eos # (Auto) (0.04-0.54) K/mm3 Baso # (Auto) (0.01-0.08) K/mm3 Manual Slide Review D-Dimer, Quantitative (0.19-0.50) mg/L Sodium (136-145) mEq/L Potassium (3.5-5.1) mEq/L Chloride (98-107) mEq/L Carbon Dioxide (21-32) mEq/L Anion Gap (5-15) BUN (7-18) mg/dL Creatinine (0.7-1.3) mg/dL Est Cr Clr Drug Dosing mL/min Estimated GFR (MDRD) (>60) mL/min BUN/Creatinine Ratio (14-18) Glucose (80-115) mg/dL POC Glucose 330 H 363 H 340 H (80-115) mg/dL Calcium (8.5-10.1) mg/dL Phosphorus (2.6-4.7) mg/dL Magnesium (1.8-2.4) mg/dl Total Bilirubin (0.2-1.0) mg/dL AST (15-37) U/L ALT (16-63) U/L Alkaline Phosphatase (46-116) U/L C-Reactive Protein (<1.0) mg/dL Total Protein (6.4-8.2) g/dl Albumin (3.4-5.0) g/dl Globulin gm/dL Albumin/Globulin Ratio (1-2) 08/27/20 08/27/20 08/27/20 Range/Units 05:41 06:04 06:04 WBC 13.85 H (4.23-9.07) K/mm3 RBC 3.99 L (4.63-6.08) M/mm3 Hgb 12.3 L (13.7-17.5) gm/dl Hct 40.1 (40.1-51.0) % MCV 100.5 H (79.0-92.2) fl MCH 30.8 (25.7-32.2) pg MCHC 30.7 L (32.2-35.5) g/dl RDW Std Deviation 54.4 H (35.1-43.9) fL Plt Count 206 D (163-337) K/mm3 MPV 11.4 (9.4-12.3) fl Neut % (Auto) 84.4 H (34.0-67.9) % Lymph % (Auto) 4.7 L (21.8-53.1) % [place] % (Auto) 8.9 (5.3-12.2) % Eos % (Auto) 0 L (0.8-7.0) Baso % (Auto) 0.1 (0.1-1.2) % Neut # (Auto) 11.69 H (1.78-5.38) K/mm3 Lymph # (Auto) 0.65 L (1.32-3.57) K/mm3 [place] # (Auto) 1.23 H (0.30-0.82) K/mm3 Eos # (Auto) 0.00 L (0.04-0.54) K/mm3 Baso # (Auto) 0.02 (0.01-0.08) K/mm3 Manual Slide Review Abnormal smear D-Dimer, Quantitative 0.61 H (0.19-0.50) mg/L Sodium (136-145) mEq/L Potassium (3.5-5.1) mEq/L Chloride (98-107) mEq/L Carbon Dioxide (21-32) mEq/L Anion Gap (5-15) BUN (7-18) mg/dL Creatinine (0.7-1.3) mg/dL Est Cr Clr Drug Dosing mL/min Estimated GFR (MDRD) (>60) mL/min BUN/Creatinine Ratio (14-18) Glucose (80-115) mg/dL POC Glucose 326 H (80-115) mg/dL Calcium (8.5-10.1) mg/dL Phosphorus (2.6-4.7) mg/dL Magnesium (1.8-2.4) mg/dl Total Bilirubin (0.2-1.0) mg/dL AST (15-37) U/L ALT (16-63) U/L Alkaline Phosphatase (46-116) U/L C-Reactive Protein (<1.0) mg/dL Total Protein (6.4-8.2) g/dl Albumin (3.4-5.0) g/dl Globulin gm/dL Albumin/Globulin Ratio (1-2) 08/27/20 08/27/20 Range/Units 06:04 12:46 WBC (4.23-9.07) K/mm3 RBC (4.63-6.08) M/mm3 Hgb (13.7-17.5) gm/dl Hct (40.1-51.0) % MCV (79.0-92.2) fl MCH (25.7-32.2) pg MCHC (32.2-35.5) g/dl RDW Std Deviation (35.1-43.9) fL Plt Count (163-337) K/mm3 MPV (9.4-12.3) fl Neut % (Auto) (34.0-67.9) % Lymph % (Auto) (21.8-53.1) % [place] % (Auto) (5.3-12.2) % Eos % (Auto) (0.8-7.0) Baso % (Auto) (0.1-1.2) % Neut # (Auto) (1.78-5.38) K/mm3 Lymph # (Auto) (1.32-3.57) K/mm3 [place] # (Auto) (0.30-0.82) K/mm3 Eos # (Auto) (0.04-0.54) K/mm3 Baso # (Auto) (0.01-0.08) K/mm3 Manual Slide Review D-Dimer, Quantitative (0.19-0.50) mg/L Sodium 143 (136-145) mEq/L Potassium 5.4 H (3.5-5.1) mEq/L Chloride 105 (98-107) mEq/L Carbon Dioxide 29 (21-32) mEq/L Anion Gap 14.4 (5-15) BUN 75 H (7-18) mg/dL Creatinine 2.3 H (0.7-1.3) mg/dL Est Cr Clr Drug Dosing 34.38 mL/min Estimated GFR (MDRD) 29 (>60) mL/min BUN/Creatinine Ratio 32.6 H (14-18) Glucose 346 H 444 H (80-115) mg/dL POC Glucose (80-115) mg/dL Calcium 8.6 (8.5-10.1) mg/dL Phosphorus 4.1 (2.6-4.7) mg/dL Magnesium 3.2 H (1.8-2.4) mg/dl Total Bilirubin 0.3 (0.2-1.0) mg/dL AST 31 (15-37) U/L ALT 54 (16-63) U/L Alkaline Phosphatase 87 (46-116) U/L C-Reactive Protein 3.4 H* (<1.0) mg/dL Total Protein 7.2 (6.4-8.2) g/dl Albumin 2.8 L (3.4-5.0) g/dl Globulin 4.4 gm/dL Albumin/Globulin Ratio 0.6 L (1-2) Med Orders - Current: Current Medications Acetaminophen (Tylenol) 650 mg PO Q4H PRN PRN Reason: Pain (Mild 1-3)/fever Hydrocodone Bitart/Acetaminophen ([place] 325-5 Mg) 1 tab PO Q4H PRN PRN Reason: Pain (moderate 4-6) Last Admin: 08/27/20 09:33 Dose: 1 tab Documented by: Albuterol (Proventil Hfa) 0 gm INH Q4H PRN PRN Reason: Shortness of Breath Alogliptin Benzoate (Alogliptin) 12.5 mg PO DAILY [facility] Last Admin: 08/27/20 09:35 Dose: 12.5 mg Documented by: Amlodipine Besylate (Norvasc) 5 mg PO DAILY [facility] Last Admin: 08/27/20 09:36 Dose: Not Given Documented by: Apixaban (Eliquis) 5 mg PO BID [facility] Last Admin: 08/27/20 09:35 Dose: 5 mg Documented by: Carvedilol (Coreg) 25 mg PO BID [facility] Last Admin: 08/27/20 09:36 Dose: 25 mg Documented by: Dexamethasone (Dexamethasone) 6 mg PO Q24H [facility] Stop: 08/31/20 17:31 Last Admin: 08/26/20 17:54 Dose: 6 mg Documented by: Dextrose/Water (Dextrose 50% In Water) 50 ml IVPUSH ASDIRECTED PRN PRN Reason: Hypoglycemia Famotidine (Pepcid) 20 mg PO BEDTIME [facility] Last Admin: 08/26/20 20:11 Dose: 20 mg Documented by: Hydralazine HCl (Apresoline) 25 mg PO QID [facility] Last Admin: 08/27/20 09:37 Dose: 25 mg Documented by: Hydromorphone HCl (Dilaudid) 0.25 mg IVPUSH Q4HR PRN PRN Reason: Pain (severe 7-10) Last Admin: 08/27/20 05:49 Dose: 0.25 mg Documented by: Ceftriaxone Sodium 2 gm/ (Sodium Chloride) 100 mls @ 200 mls/hr IV Q24H [facility] Stop: 08/28/20 20:59 Last Admin: 08/26/20 20:24 Dose: 200 mls/hr Documented by: Insulin Glargine (Lantus) 50 unit SUBCUT BEDTIME [facility] Last Admin: 08/26/20 22:04 Dose: 8 units Documented by: Insulin Glargine (Lantus) 20 unit SUBCUT DAILY [facility] Last Admin: 08/27/20 09:38 Dose: 20 units Documented by: Insulin Human Lispro (Humalog) 15 unit SUBCUT TIDPC [facility] Last Admin: 08/27/20 09:37 Dose: 15 units Documented by: Insulin Human Lispro (Humalog) 0 unit SUBCUT QIDACANDBED [facility]; Protocol Insulin Human Lispro (Humalog) 20 unit SUBCUT ONETIME ONE Stop: 08/27/20 13:38 Methimazole (Methimazole) 5 mg PO DAILY [facility] Last Admin: 08/27/20 09:35 Dose: 5 mg Documented by: Mirtazapine (Remeron) 45 mg PO BEDTIME [facility] Last Admin: 08/26/20 20:12 Dose: 45 mg Documented by: Miscellaneous Information (Remove Patch) 1 ea TRDERM DAILY [facility] Last Admin: 08/26/20 08:50 Dose: 1 ea Documented by: Nicotine (Habitrol) 21 mg TRDERM DAILY [facility] Last Admin: 08/27/20 09:38 Dose: 21 mg Documented by: Nortriptyline HCl (Nortriptyline) 20 mg PO BEDTIME [facility] Last Admin: 08/26/20 20:11 Dose: 20 mg Documented by: Ondansetron HCl (Zofran) 4 mg IV Q4H PRN PRN Reason: Nausea/Vomiting Polyethylene Glycol (Miralax) 17 gm PO DAILY PRN PRN Reason: Constipation Rosuvastatin Calcium (Crestor) 20 mg PO BEDTIME [facility] Last Admin: 08/26/20 20:13 Dose: 20 mg Documented by: Senna/Docusate Sodium (Senna Plus) 1 tab PO BID PRN PRN Reason: Constipation Last Admin: 08/25/20 12:57 Dose: 1 tab Documented by: Sodium Bicarbonate (Sodium Bicarbonate) 650 mg PO BID [facility] Last Admin: 08/27/20 09:35 Dose: 650 mg Documented by: Discontinued Medications Alogliptin Benzoate (Alogliptin) 25 mg PO DAILY [facility] Last Admin: 08/26/20 08:44 Dose: 25 mg Documented by: Carvedilol (Coreg) 25 mg PO BIDMEALS [facility] Last Admin: 08/24/20 18:43 Dose: Not Given Documented by: Famotidine (Pepcid) 20 mg PO BID [facility] Stop: 08/24/20 21:01 Last Admin: 08/24/20 20:05 Dose: 20 mg Documented by: Furosemide (Lasix) 20 mg IVPUSH NOW ONE Stop: 08/26/20 08:01 Last Admin: 08/26/20 08:45 Dose: 20 mg Documented by: Hydralazine HCl (Apresoline) 25 mg PO QID [facility] Last Admin: 08/24/20 17:19 Dose: Not Given Documented by: Hydromorphone HCl (Dilaudid) Confirm Administered Dose 0.5 mg .ROUTE .STK-MED ONE Stop: 08/24/20 14:07 Last Admin: 08/24/20 14:11 Dose: Not Given Documented by: Hydromorphone HCl (Dilaudid) 0.5 mg IVPUSH ONETIME [facility] Stop: 08/24/20 14:12 Last Admin: 08/24/20 14:15 Dose: 0.5 mg Documented by: Hydromorphone HCl (Dilaudid) 0.25 mg IVPUSH Q2H PRN PRN Reason: Pain (severe 7-10) Remdesivir 100 mg/ Sodium (Chloride) 100 mls @ 100 mls/hr IV Q24H [facility] Stop: 08/28/20 18:29 Last Admin: 08/25/20 16:34 Dose: 100 mls/hr Documented by: Remdesivir 200 mg/ Sodium (Chloride) 250 mls @ 250 mls/hr IV ONETIME ONE Stop: 08/24/20 19:14 Last Admin: 08/24/20 18:31 Dose: 250 mls/hr Documented by: Sodium Chloride (Normal Saline) Confirm Administered Dose 250 mls @ as directed .ROUTE .STK-MED ONE Stop: 08/24/20 18:13 Last Admin: 08/24/20 18:35 Dose: Not Given Documented by: Azithromycin 500 mg/ Sodium (Chloride) 250 mls @ 250 mls/hr IV Q24H [facility] Stop: 08/26/20 21:59 Last Admin: 08/26/20 21:58 Dose: 250 mls/hr Documented by: Influenza Virus Vaccine (Pharmacy To Dose - Influenza Vaccine) 1 each IM ONETIME ONE Stop: 08/24/20 14:37 Influenza Virus Vaccine (Fluzone Quad Syringe) 60 mcg IM .ONCE ONE Stop: 08/24/20 14:46 Insulin Glargine (Lantus) 10 unit SUBCUT DAILY [facility] Last Admin: 08/26/20 09:02 Dose: 10 units Documented by: Insulin Human Lispro (Humalog) 10 unit SUBCUT TIDPC [facility] Last Admin: 08/26/20 18:54 Dose: 10 unit Documented by: Insulin Human Lispro (Humalog) 0 unit SUBCUT QIDACANDBED [facility]; Protocol Last Admin: 08/27/20 07:51 Dose: 8 units Documented by: Losartan Potassium (Cozaar) 100 mg PO DAILY [facility] Last Admin: 08/25/20 08:20 Dose: 100 mg Documented by: Ondansetron HCl (Zofran) 4 mg IVPUSH ONETIME ONE Stop: 08/24/20 13:40 Last Admin: 08/24/20 14:15 Dose: 4 mg Documented by: Oxycodone HCl (Oxycodone) 10 mg PO Q4H PRN PRN Reason: Pain (moderate 4-6) Last Admin: 08/24/20 20:07 Dose: 10 mg Documented by: - Exam Quality Assessment: No: Supplemental Oxygen General: Alert, Oriented HEENT: Pupils Equal, Mucous Membr. Moist/[place] Neck: Supple Lungs: Clear to Auscultation, Normal Respiratory Effort Cardiovascular: Regular Rate, Regular Rhythm GI/Abdominal Exam: Normal Bowel Sounds, Soft, Non-Tender, No Distention Extremities: Normal Inspection, Normal Capillary Refill Skin: Warm, Dry, Intact Psy/Mental Status: Alert, Normal Affect, Normal Mood Sepsis Event Note - Evaluation Sepsis Screening Result: Severe Sepsis Risk - Focused Exam Vital Signs: Vital Signs Temp Pulse Resp BP Pulse Ox Pulse Ox 08/27/20 09:37 138/89 08/27/20 09:36 58 L 138/89 08/27/20 09:32 58 L 138/89 94 L 08/27/20 09:30 97.5 F 21 H 156/101 H 08/27/20 09:17 93 L 08/27/20 07:47 97.9 F 96 17 179/126 H 94 L 08/27/20 06:01 95 08/27/20 03:28 97.7 F 85 19 176/152 H 96 - Problem List & Annotations (1) COVID-19 SNOMED Code(s): 332665803 Code(s): U07.1 - COVID-19 Status: Acute Current Visit: Yes (2) Hypoxia SNOMED Code(s): 775325927 Code(s): R09.02 - HYPOXEMIA Status: Acute Current Visit: Yes (3) COPD (chronic obstructive pulmonary disease) SNOMED Code(s): 58779205 Code(s): J44.9 - CHRONIC OBSTRUCTIVE PULMONARY DISEASE, UNSPECIFIED Status: Acute Current Visit: No Qualifiers: COPD type: unspecified COPD Qualified Code(s): J44.9 - Chronic obstructive pulmonary disease, unspecified (4) Congestive heart failure (CHF) SNOMED Code(s): 93261522 Code(s): I50.9 - HEART FAILURE, UNSPECIFIED Status: Acute Current Visit: No Qualifiers: Heart failure type: unspecified Heart failure chronicity: acute Qualified Code(s): I50.9 - Heart failure, unspecified (5) Diabetic nephropathy associated with type 2 diabetes mellitus SNOMED Code(s): 335751141, 638582079 Code(s): E11.21 - TYPE 2 DIABETES MELLITUS WITH DIABETIC NEPHROPATHY Status: Acute Current Visit: No (6) Graves' disease SNOMED Code(s): 786245993 Code(s): E05.00 - THYROTOXICOSIS W DIFFUSE GOITER W/O THYROTOXIC CRISIS Status: Acute Current Visit: No (7) Hypertensive heart disease SNOMED Code(s): 12938737 Code(s): I11.9 - HYPERTENSIVE HEART DISEASE WITHOUT HEART FAILURE Status: Acute Current Visit: No Qualifiers: Heart failure presence: with heart failure Heart failure type: unspecified Qualified Code(s): I11.0 - Hypertensive heart disease with heart failure (8) Obstructive sleep apnea SNOMED Code(s): 04013794 Code(s): G47.33 - OBSTRUCTIVE SLEEP APNEA (ADULT) (PEDIATRIC) Status: Acute Current Visit: No (9) Pneumonia due to COVID-19 virus SNOMED Code(s): 062446868821094524 Code(s): U07.1 - COVID-19; J12.89 - OTHER VIRAL PNEUMONIA Status: Acute Current Visit: No (10) Uncontrolled type 2 diabetes mellitus SNOMED Code(s): 521776183, 598839748 Code(s): E11.65 - TYPE 2 DIABETES MELLITUS WITH HYPERGLYCEMIA Status: Acute Current Visit: No - Problem List Review Problem List Initiated/Reviewed/Updated: Yes - My Orders Last 24 Hours: My Active Orders 08/26/20 19:02 HYDROmorphone [Dilaudid] 0.25 mg IVPUSH Q4HR PRN 08/27/20 09:00 Alogliptin Benzoate [Alogliptin] 12.5 mg PO DAILY Insulin Glarg,Human.Rec.Analog [LantUS] 20 unit SUBCUT DAILY Insulin Lispro [HumaLOG] 15 unit SUBCUT TIDPC 08/27/20 13:37 Insulin Lispro [HumaLOG] 20 unit SUBCUT ONETIME ONE 08/27/20 17:00 Insulin Lispro [HumaLOG] See Protocol SUBCUT QIDACANDBED - Plan Plan:: 08/24/2020 Pneumonia secondary to COVID-19 COPD [id number] history, stopped smoking 2 weeks ago. Sleep apnea * Admitted on 08/20/2020 and discharged on 08/23/2020 after getting 2 units of convalescent plasma and being on room air for 2 days. * Patient returned to the emergency department today with worsening shortness of breath, PaO2 of 39 on room air, and cough. * Currently requiring 2 to 4 L of O2 via nasal cannula to keep oxygen saturations in the low 90s. * No significant change in chest x-ray since August 20 * Pertinent labs: WBC 11.53, PaO2 39 on room air, CRP 4.7, LDH 365, d-dimer 0.66, ferritin 184 Congestive heart failure with preserved ejection fraction Atrial fibrillation Hypertension Hyperlipidemia * Echocardiogram from June 2019 showed ejection fraction of 55 to 60%. * Home dose of Lasix was 40 mg twice daily, held during last hospitalization. * On Eliquis 5 mg twice daily for stroke prevention * Blood pressure medications adjusted last hospitalization: Carvedilol 25 mg twice daily, losartan 100 mg daily, hydralazine 25 mg 4 times daily. Insulin-dependent diabetespoorly controlled * Hemoglobin A1c 9.5 * Increase Lantus to 50 units at bedtime and Humalog 10 units with each meal. * On Trulicity and alogliptin at home. Stage III-IV chronic renal insufficiency * GFR is up to 30 * Baseline appears to be in the upper 20s to low 30 * He did not receive remdesivir last visit secondary to poor renal function. Graves' disease * TSH normal * Methimazole 5 mg daily. 08/25/2020 * No significant improvement in hypoxemia secondary to pneumonia and COVID-19. * Currently on 6 L nasal cannula. * WBC down to 7.8, d-dimer 0.45, CRP up to 10.5 * Worsening renal function with GFR of 26 and creatinine of 2.5 * Blood pressures moderately controlled T-max of 100.6 * Blood sugars still in the 200s. * Echocardiogram pending * Day 2 remdesivir, dexamethasone, Rocephin, azithromycin 08/26/2020 Pneumonia secondary to COVID-19 COPD [id number] history, stopped smoking 2 weeks ago. Sleep apnea * Improving oxygenation. Currently on 1 L nasal cannula with saturation in the mid 90s. * Afebrile over the last 24 hours * WBC 8.9, CRP 5.7 * Chest x-ray shows no significant change in bilateral pneumonia. Stage IV chronic renal insufficiency Hyperkalemia * Renal insufficiency continues to be poor. No change overnight with a GFR of 26 and creatinine of 2.5. * Remdesivir will have to be held because of his renal insufficiency. Insulin-dependent diabetespoorly controlled * Blood sugars continue in the 300s even with increase in the insulin * Remdesivir worsening blood sugars and his baseline control is poor Congestive heart failure with preserved ejection fraction Atrial fibrillation Hypertension Hyperlipidemia * Blood pressure continues to be elevated even with the addition of amlodipine * Limited echocardiogram 1. Left ventricular ejection fraction, by visual estimation, is 55%. 2. Technically difficult study with suboptimal image quality. Probably normal regional wall motion. 3. Normal right ventricular systolic function. 4. There is mild aortic valve sclerosis without stenosis. 5. No evidence of mitral valve regurgitation. 6. No tricuspid valve regurgitation. 7. The right ventricular systolic pressure is unable to be determined. * Cozaar held secondary to hyperkalemia 08/27/2020 Pneumonia secondary to COVID-19 COPD [id number] history, stopped smoking 2 weeks ago. Sleep apnea * Back on room air with oxygen saturations in the mid 90s * Afebrile * WBC 13.9, CRP 3.4 Stage IV chronic renal insufficiency Hyperkalemia * Potassium down to 5.4. * Creatinine 2.3, creatinine clearance of 29, BUN of 75 * Remdesivir will have to be held because of severe renal insufficiency. Insulin-dependent diabetespoorly controlled * Blood sugars continue in the 300s even with increase in the insulin * Remdesivir worsening blood sugars and his baseline control is poor Congestive heart failure with preserved ejection fraction Atrial fibrillation Hypertension Hyperlipidemia Plan * Continuous pulse ox and telemetry. * Stop remdesivir. If renal function continues to be low tomorrow will have to stop. * Day 4 of dexamethasone 6 mg daily. * Close monitoring and treatment of hyperglycemia. * FiO2 to keep SPO2 greater than 88%. * ABGs as needed * CPAP/BiPAP while asleep. * Day 4 of Rocephin 200 mg daily for 5 days and azithromycin 500 mg daily for 3 days. * Continue alogliptin, Lantus 20 units in the morning and 50 units in the evening, increase Humalog to 15 units after full meals, * Stop Cozaar secondary to hypercalcemia * Sliding scale insulin high level * I-S and Acapella * Strict I's and O's and daily weights * COVID labs in the morning VTE prophylaxis with Eliquis CODE STATUS: Full code Disposition admit to medical floor for hypoxemia and treatment of COVID pneumonia.
[2020-08-27] MEDS: Dexamethasone 4 MG Tab PO SCH (16:46)
[2020-08-27] MEDS ORDERED: amLODIPine 10 MG Tab PO SCH (21:00)
[2020-08-27] MEDS: cefTRIAXone 2 GM in Sodium Chloride 0.9% 100 ML IV SCH (22:19)
[2020-08-27] MEDS: Mirtazapine 15 MG Tab PO SCH (22:21)
[2020-08-27] MEDS: Famotidine 20 MG Tab PO SCH (22:22)
[2020-08-27] MEDS: Rosuvastatin 10 MG Tab PO SCH (22:23)
[2020-08-27] MEDS: Nortriptyline 10 MG Cap PO SCH (23:25)
[2020-08-28] MEDS: HYDROmorphone 0.5 MG/0.5 ML Syringe IVPUSH PRN ×3 (06:15→21:39)
[2020-08-28] MEDS: Insulin Glarg,Human.Rec.Analog 100 Unit/ML SUBCUT SCH ×2 (08:45→22:01)
[2020-08-28] MEDS: Insulin Lispro 100 Units/ML 3 ML Vial SUBCUT SCH ×7 (08:47→21:46)
[2020-08-28] MEDS: Nicotine 21 MG/24 Hr Patch TRDERM SCH (08:52)
[2020-08-28] MEDS: Carvedilol 12.5 MG Tab PO SCH ×2 (08:55→21:29)
[2020-08-28] MEDS: hydrALAZINE 25 MG Tab PO SCH ×4 (08:57→21:28)
[2020-08-28] MEDS: Methimazole 5 MG Tab PO SCH (08:57)
[2020-08-28] MEDS: Apixaban 5 MG Tab PO SCH ×2 (08:57→21:29)
[2020-08-28] MEDS: Sodium Bicarbonate 650 MG Tab PO SCH ×2 (08:58→21:58)
[2020-08-28] MEDS: amLODIPine 5 MG Tab PO SCH (08:59)
[2020-08-28] MEDS: cloNIDine 0.1 MG Tab PO SCH ×3 (11:58→21:26)
--- NOTE | 2020-08-28 15:44 | PCM.PN ---
- General Info Date of Service: 08/28/20 Admission Dx/Problem (Free Text): Admission Diagnosis/Problem Admission Diagnosis/Problem Hypoxia Subjective Update: Patient is feeling much better this morning. He is off of O2 and blood sugars, although still high, are improving. He denies any nausea or vomiting. He does have some shortness of breath and cough. Functional Status: Reports: Pain Controlled - Review of Systems General: Reports: No Symptoms HEENT: Reports: No Symptoms Pulmonary: Reports: No Symptoms Cardiovascular: Reports: No Symptoms Gastrointestinal: Reports: No Symptoms Musculoskeletal: Reports: No Symptoms Neurological: Reports: No Symptoms Psychiatric: Reports: No Symptoms - Patient Data Vitals - Most Recent: Last Vital Signs Temp 98.1 F 08/28/20 11:15 Pulse 98 08/28/20 11:15 Resp 16 08/28/20 11:15 BP 145/99 H 08/28/20 12:00 Pulse Ox 95 08/28/20 11:15 Weight - Most Recent: 110.314 kg I&O - Last 24 Hours: Intake & Output 08/28/20 08/28/20 08/28/20 06:59 14:59 22:59 Intake Total 700 780 Output Total 100 Balance 600 780 Lab Results Last 24 Hours: Laboratory Results - last 24 hr 08/27/20 08/27/20 08/28/20 Range/Units 16:39 22:05 06:13 POC Glucose 378 H 223 H 257 H (80-115) mg/dL 08/28/20 Range/Units 11:17 POC Glucose 251 H (80-115) mg/dL Med Orders - Current: Current Medications Acetaminophen (Tylenol) 650 mg PO Q4H PRN PRN Reason: Pain (Mild 1-3)/fever Hydrocodone Bitart/Acetaminophen ([place] 325-5 Mg) 1 tab PO Q4H PRN PRN Reason: Pain (moderate 4-6) Last Admin: 08/27/20 09:33 Dose: 1 tab Documented by: Albuterol (Proventil Hfa) 0 gm INH Q4H PRN PRN Reason: Shortness of Breath Alogliptin Benzoate (Alogliptin) 12.5 mg PO DAILY [facility] Last Admin: 08/28/20 08:58 Dose: 12.5 mg Documented by: Apixaban (Eliquis) 5 mg PO BID [facility] Last Admin: 08/28/20 08:57 Dose: 5 mg Documented by: Carvedilol (Coreg) 25 mg PO BID [facility] Last Admin: 08/28/20 08:55 Dose: 25 mg Documented by: Clonidine HCl (Catapres) 0.1 mg PO TID [facility] Last Admin: 08/28/20 11:58 Dose: 0.1 mg Documented by: Dexamethasone (Dexamethasone) 6 mg PO Q24H [facility] Stop: 08/31/20 17:31 Last Admin: 08/27/20 16:46 Dose: 6 mg Documented by: Dextrose/Water (Dextrose 50% In Water) 50 ml IVPUSH ASDIRECTED PRN PRN Reason: Hypoglycemia Famotidine (Pepcid) 20 mg PO BEDTIME [facility] Last Admin: 08/27/20 22:22 Dose: 20 mg Documented by: Hydralazine HCl (Apresoline) 25 mg PO QID [facility] Last Admin: 08/28/20 12:00 Dose: 25 mg Documented by: Hydromorphone HCl (Dilaudid) 0.25 mg IVPUSH Q4HR PRN PRN Reason: Pain (severe 7-10) Last Admin: 08/28/20 06:15 Dose: 0.25 mg Documented by: Ceftriaxone Sodium 2 gm/ (Sodium Chloride) 100 mls @ 200 mls/hr IV Q24H [facility] Stop: 08/28/20 20:59 Last Admin: 08/27/20 22:19 Dose: 200 mls/hr Documented by: Insulin Glargine (Lantus) 50 unit SUBCUT BEDTIME [facility] Last Admin: 08/27/20 22:20 Dose: 50 units Documented by: Insulin Glargine (Lantus) 20 unit SUBCUT DAILY [facility] Last Admin: 08/28/20 08:45 Dose: 20 units Documented by: Insulin Human Lispro (Humalog) 0 unit SUBCUT QIDACANDBED [facility]; Protocol Last Admin: 08/28/20 11:55 Dose: 9 units Documented by: Insulin Human Lispro (Humalog) 20 unit SUBCUT TIDAC [facility] Last Admin: 08/28/20 11:56 Dose: 20 units Documented by: Methimazole (Methimazole) 5 mg PO DAILY [facility] Last Admin: 08/28/20 08:57 Dose: 5 mg Documented by: Mirtazapine (Remeron) 45 mg PO BEDTIME [facility] Last Admin: 08/27/20 22:21 Dose: 45 mg Documented by: Miscellaneous Information (Remove Patch) 1 ea TRDERM DAILY [facility] Last Admin: 08/28/20 09:02 Dose: 1 ea Documented by: Nicotine (Habitrol) 21 mg TRDERM DAILY [facility] Last Admin: 08/28/20 08:52 Dose: 21 mg Documented by: Nortriptyline HCl (Nortriptyline) 20 mg PO BEDTIME [facility] Last Admin: 08/27/20 23:25 Dose: 20 mg Documented by: Ondansetron HCl (Zofran) 4 mg IV Q4H PRN PRN Reason: Nausea/Vomiting Polyethylene Glycol (Miralax) 17 gm PO DAILY PRN PRN Reason: Constipation Rosuvastatin Calcium (Crestor) 20 mg PO BEDTIME [facility] Last Admin: 08/27/20 22:23 Dose: 20 mg Documented by: Senna/Docusate Sodium (Senna Plus) 1 tab PO BID PRN PRN Reason: Constipation Last Admin: 08/25/20 12:57 Dose: 1 tab Documented by: Sodium Bicarbonate (Sodium Bicarbonate) 650 mg PO BID [facility] Last Admin: 08/28/20 08:58 Dose: 650 mg Documented by: Discontinued Medications Alogliptin Benzoate (Alogliptin) 25 mg PO DAILY [facility] Last Admin: 08/26/20 08:44 Dose: 25 mg Documented by: Amlodipine Besylate (Norvasc) 5 mg PO DAILY [facility] Last Admin: 08/28/20 08:59 Dose: Not Given Documented by: Amlodipine Besylate (Norvasc) 5 mg PO BEDTIME [facility] Last Admin: 08/27/20 22:31 Dose: Not Given Documented by: Amlodipine Besylate (Norvasc) 5 mg PO BEDTIME [facility] Carvedilol (Coreg) 25 mg PO BIDMEALS [facility] Last Admin: 08/24/20 18:43 Dose: Not Given Documented by: Famotidine (Pepcid) 20 mg PO BID [facility] Stop: 08/24/20 21:01 Last Admin: 08/24/20 20:05 Dose: 20 mg Documented by: Furosemide (Lasix) 20 mg IVPUSH NOW ONE Stop: 08/26/20 08:01 Last Admin: 08/26/20 08:45 Dose: 20 mg Documented by: Hydralazine HCl (Apresoline) 25 mg PO QID [facility] Last Admin: 08/24/20 17:19 Dose: Not Given Documented by: Hydromorphone HCl (Dilaudid) Confirm Administered Dose 0.5 mg .ROUTE .STK-MED ONE Stop: 08/24/20 14:07 Last Admin: 08/24/20 14:11 Dose: Not Given Documented by: Hydromorphone HCl (Dilaudid) 0.5 mg IVPUSH ONETIME STA Stop: 08/24/20 14:12 Last Admin: 08/24/20 14:15 Dose: 0.5 mg Documented by: Hydromorphone HCl (Dilaudid) 0.25 mg IVPUSH Q2H PRN PRN Reason: Pain (severe 7-10) Remdesivir 100 mg/ Sodium (Chloride) 100 mls @ 100 mls/hr IV Q24H [facility] Stop: 08/28/20 18:29 Last Admin: 08/25/20 16:34 Dose: 100 mls/hr Documented by: Remdesivir 200 mg/ Sodium (Chloride) 250 mls @ 250 mls/hr IV ONETIME ONE Stop: 08/24/20 19:14 Last Admin: 08/24/20 18:31 Dose: 250 mls/hr Documented by: Sodium Chloride (Normal Saline) Confirm Administered Dose 250 mls @ as directed .ROUTE .STK-MED ONE Stop: 08/24/20 18:13 Last Admin: 08/24/20 18:35 Dose: Not Given Documented by: Azithromycin 500 mg/ Sodium (Chloride) 250 mls @ 250 mls/hr IV Q24H [facility] Stop: 08/26/20 21:59 Last Admin: 08/26/20 21:58 Dose: 250 mls/hr Documented by: Influenza Virus Vaccine (Pharmacy To Dose - Influenza Vaccine) 1 each IM ONETIME ONE Stop: 08/24/20 14:37 Influenza Virus Vaccine (Fluzone Quad [id number] Syringe) 60 mcg IM .ONCE ONE Stop: 08/24/20 14:46 Insulin Glargine (Lantus) 10 unit SUBCUT DAILY [facility] Last Admin: 08/26/20 09:02 Dose: 10 units Documented by: Insulin Human Lispro (Humalog) 10 unit SUBCUT TIDPC [facility] Last Admin: 08/26/20 18:54 Dose: 10 unit Documented by: Insulin Human Lispro (Humalog) 0 unit SUBCUT QIDACANDBED [facility]; Protocol Last Admin: 08/27/20 16:22 Dose: Not Given Documented by: Insulin Human Lispro (Humalog) 15 unit SUBCUT TIDPC [facility] Last Admin: 08/27/20 18:14 Dose: 15 units Documented by: Insulin Human Lispro (Humalog) 20 unit SUBCUT ONETIME ONE Stop: 08/27/20 13:38 Last Admin: 08/27/20 13:52 Dose: 20 units Documented by: Losartan Potassium (Cozaar) 100 mg PO DAILY [facility] Last Admin: 08/25/20 08:20 Dose: 100 mg Documented by: Ondansetron HCl (Zofran) 4 mg IVPUSH ONETIME ONE Stop: 08/24/20 13:40 Last Admin: 08/24/20 14:15 Dose: 4 mg Documented by: Oxycodone HCl (Oxycodone) 10 mg PO Q4H PRN PRN Reason: Pain (moderate 4-6) Last Admin: 08/24/20 20:07 Dose: 10 mg Documented by: - Exam General: Alert, Oriented HEENT: Pupils Equal, Mucous Membr. Moist/[place] Cardiovascular: Irregular Rhythm (Irregular) GI/Abdominal Exam: Normal Bowel Sounds, Soft, Non-Tender, No Distention Skin: Warm, Dry, Intact Psy/Mental Status: Alert, Normal Affect, Normal Mood Sepsis Event Note - Evaluation Sepsis Screening Result: No Definite Risk - Focused Exam Vital Signs: Vital Signs Temp Pulse Resp BP Pulse Ox 08/28/20 12:00 145/99 H 08/28/20 11:58 145/99 H 08/28/20 11:15 98.1 F 98 16 145/99 H 95 08/28/20 08:57 162/111 H 08/28/20 08:56 91 97 08/28/20 08:55 91 162/111 H 08/28/20 08:44 97.9 F 58 L 20 162/111 H 97 08/28/20 06:19 173/119 H 08/28/20 06:12 98.1 F 91 16 180/115 H 97 - Problem List & Annotations (1) COVID-19 SNOMED Code(s): 816266113 Code(s): U07.1 - COVID-19 Status: Acute Current Visit: Yes (2) Hypoxia SNOMED Code(s): 230890203 Code(s): R09.02 - HYPOXEMIA Status: Acute Current Visit: Yes (3) COPD (chronic obstructive pulmonary disease) SNOMED Code(s): 63251792 Code(s): J44.9 - CHRONIC OBSTRUCTIVE PULMONARY DISEASE, UNSPECIFIED Status: Acute Current Visit: No Qualifiers: COPD type: unspecified COPD Qualified Code(s): J44.9 - Chronic obstructive pulmonary disease, unspecified (4) Congestive heart failure (CHF) SNOMED Code(s): 85420906 Code(s): I50.9 - HEART FAILURE, UNSPECIFIED Status: Acute Current Visit: No Qualifiers: Heart failure type: unspecified Heart failure chronicity: acute Qualified Code(s): I50.9 - Heart failure, unspecified (5) Diabetic nephropathy associated with type 2 diabetes mellitus SNOMED Code(s): 703638664, 528543509 Code(s): E11.21 - TYPE 2 DIABETES MELLITUS WITH DIABETIC NEPHROPATHY Status: Acute Current Visit: No (6) Graves' disease SNOMED Code(s): 444390244 Code(s): E05.00 - THYROTOXICOSIS W DIFFUSE GOITER W/O THYROTOXIC CRISIS Status: Acute Current Visit: No (7) Hypertensive heart disease SNOMED Code(s): 04400445 Code(s): I11.9 - HYPERTENSIVE HEART DISEASE WITHOUT HEART FAILURE Status: Acute Current Visit: No Qualifiers: Heart failure presence: with heart failure Heart failure type: unspecified Qualified Code(s): I11.0 - Hypertensive heart disease with heart failure (8) Obstructive sleep apnea SNOMED Code(s): 55196720 Code(s): G47.33 - OBSTRUCTIVE SLEEP APNEA (ADULT) (PEDIATRIC) Status: Acute Current Visit: No (9) Pneumonia due to COVID-19 virus SNOMED Code(s): 499009573947376662 Code(s): U07.1 - COVID-19; J12.89 - OTHER VIRAL PNEUMONIA Status: Acute Current Visit: No (10) Uncontrolled type 2 diabetes mellitus SNOMED Code(s): 005495904, 085806674 Code(s): E11.65 - TYPE 2 DIABETES MELLITUS WITH HYPERGLYCEMIA Status: Acute Current Visit: No - Problem List Review Problem List Initiated/Reviewed/Updated: Yes - My Orders Last 24 Hours: My Active Orders 08/27/20 17:00 Insulin Lispro [HumaLOG] See Protocol SUBCUT QIDACANDBED 08/28/20 07:00 Insulin Lispro [HumaLOG] 20 unit SUBCUT TIDAC 08/28/20 11:30 cloNIDine [Catapres] 0.1 mg PO TID 08/28/20 12:44 Admission Status [Patient Status] [ADT] Routine - Plan Plan:: 08/24/2020 Pneumonia secondary to COVID-19 COPD [id number] history, stopped smoking 2 weeks ago. Sleep apnea * Admitted on 08/20/2020 and discharged on 08/23/2020 after getting 2 units of convalescent plasma and being on room air for 2 days. * Patient returned to the emergency department today with worsening shortness of breath, PaO2 of 39 on room air, and cough. * Currently requiring 2 to 4 L of O2 via nasal cannula to keep oxygen saturations in the low 90s. * No significant change in chest x-ray since August 20 * Pertinent labs: WBC 11.53, PaO2 39 on room air, CRP 4.7, LDH 365, d-dimer 0.66, ferritin 184 Congestive heart failure with preserved ejection fraction Atrial fibrillation Hypertension Hyperlipidemia * Echocardiogram from June 2019 showed ejection fraction of 55 to 60%. * Home dose of Lasix was 40 mg twice daily, held during last hospitalization. * On Eliquis 5 mg twice daily for stroke prevention * Blood pressure medications adjusted last hospitalization: Carvedilol 25 mg twice daily, losartan 100 mg daily, hydralazine 25 mg 4 times daily. Insulin-dependent diabetespoorly controlled * Hemoglobin A1c 9.5 * Increase Lantus to 50 units at bedtime and Humalog 10 units with each meal. * On Trulicity and alogliptin at home. Stage III-IV chronic renal insufficiency * GFR is up to 30 * Baseline appears to be in the upper 20s to low 30 * He did not receive remdesivir last visit secondary to poor renal function. Graves' disease * TSH normal * Methimazole 5 mg daily. 08/25/2020 * No significant improvement in hypoxemia secondary to pneumonia and COVID-19. * Currently on 6 L nasal cannula. * WBC down to 7.8, d-dimer 0.45, CRP up to 10.5 * Worsening renal function with GFR of 26 and creatinine of 2.5 * Blood pressures moderately controlled T-max of 100.6 * Blood sugars still in the 200s. * Echocardiogram pending * Day 2 remdesivir, dexamethasone, Rocephin, azithromycin 08/26/2020 Pneumonia secondary to COVID-19 COPD [id number] history, stopped smoking 2 weeks ago. Sleep apnea * Improving oxygenation. Currently on 1 L nasal cannula with saturation in the mid 90s. * Afebrile over the last 24 hours * WBC 8.9, CRP 5.7 * Chest x-ray shows no significant change in bilateral pneumonia. Stage IV chronic renal insufficiency Hyperkalemia * Renal insufficiency continues to be poor. No change overnight with a GFR of 26 and creatinine of 2.5. * Remdesivir will have to be held because of his renal insufficiency. Insulin-dependent diabetespoorly controlled * Blood sugars continue in the 300s even with increase in the insulin * Remdesivir worsening blood sugars and his baseline control is poor Congestive heart failure with preserved ejection fraction Atrial fibrillation Hypertension Hyperlipidemia * Blood pressure continues to be elevated even with the addition of amlodipine * Limited echocardiogram 1. Left ventricular ejection fraction, by visual estimation, is 55%. 2. Technically difficult study with suboptimal image quality. Probably normal regional wall motion. 3. Normal right ventricular systolic function. 4. There is mild aortic valve sclerosis without stenosis. 5. No evidence of mitral valve regurgitation. 6. No tricuspid valve regurgitation. 7. The right ventricular systolic pressure is unable to be determined. * Cozaar held secondary to hyperkalemia 08/27/2020 Pneumonia secondary to COVID-19 COPD [id number] history, stopped smoking 2 weeks ago. Sleep apnea * Back on room air with oxygen saturations in the mid 90s * Afebrile * WBC 13.9, CRP 3.4 Stage IV chronic renal insufficiency Hyperkalemia * Potassium down to 5.4. * Creatinine 2.3, creatinine clearance of 29, BUN of 75 * Remdesivir will have to be held because of severe renal insufficiency. Insulin-dependent diabetespoorly controlled * Blood sugars continue in the 300s even with increase in the insulin * Dexamethasone worsening blood sugars and his baseline control is poor Congestive heart failure with preserved ejection fraction Atrial fibrillation Hypertension Hyperlipidemia 08/28/2020 Pneumonia secondary to COVID-19 COPD [id number] history, stopped smoking 2 weeks ago. Sleep apnea * Back on room air with oxygen saturations in the mid 90s * Afebrile * Completed azithromycin and convalescent plasma * Unable to give him to severe secondary to renal disease Stage IV chronic renal insufficiency Hyperkalemia * Remdesivir will have to be held because of severe renal insufficiency. Insulin-dependent diabetespoorly controlled * Blood sugars continue in the 300s even with increase in the insulin * Dexamethasone worsening blood sugars and his baseline control is poor Congestive heart failure with preserved ejection fraction Atrial fibrillation Hypertension Hyperlipidemia Plan * Stop continuous pulse ox and telemetry. Continue spotcheck. * Stop remdesivir. If renal function continues to be low tomorrow will have to stop. * Day 5 of dexamethasone 6 mg daily. * Close monitoring and treatment of hyperglycemia. * FiO2 to keep SPO2 greater than 88%. * ABGs as needed * CPAP/BiPAP while asleep. * Day 5 of Rocephin 200 mg daily for 5 days . * Continue alogliptin, Lantus 20 units in the morning and 50 units in the evening, increase Humalog to 15 units after full meals, * Stop Cozaar secondary to hyperkalemia * Sliding scale insulin high level * I-S and Acapella * Strict I's and O's and daily weights * COVID labs in the morning VTE prophylaxis with Eliquis CODE STATUS: Full code Disposition admit to medical floor for hypoxemia and treatment of COVID pneumonia.
[2020-08-28] MEDS: Dexamethasone 4 MG Tab PO SCH (16:57)
[2020-08-28] MEDS ORDERED: amLODIPine 5 MG Tab PO SCH (21:00)
[2020-08-28] MEDS: cefTRIAXone 2 GM in Sodium Chloride 0.9% 100 ML IV SCH (21:21)
[2020-08-28] MEDS: Mirtazapine 15 MG Tab PO SCH (21:25)
[2020-08-28] MEDS: Nortriptyline 10 MG Cap PO SCH (21:27)
[2020-08-28] MEDS: Famotidine 20 MG Tab PO SCH (21:27)
[2020-08-28] MEDS: Rosuvastatin 10 MG Tab PO SCH (21:28)
[2020-08-29] MEDS: HYDROmorphone 0.5 MG/0.5 ML Syringe IVPUSH PRN ×2 (02:14→09:41)
[2020-08-29] MEDS: Insulin Lispro 100 Units/ML 3 ML Vial SUBCUT SCH ×4 (07:50→11:36)
[2020-08-29] MEDS: hydrALAZINE 25 MG Tab PO SCH ×2 (09:39→12:31)
[2020-08-29] MEDS: cloNIDine 0.1 MG Tab PO SCH (09:40)
[2020-08-29] MEDS: Methimazole 5 MG Tab PO SCH (09:40)
[2020-08-29] MEDS: Carvedilol 12.5 MG Tab PO SCH (09:40)
[2020-08-29] MEDS: Sodium Bicarbonate 650 MG Tab PO SCH (09:41)
[2020-08-29] MEDS: Apixaban 5 MG Tab PO SCH (09:41)
[2020-08-29] MEDS: Insulin Glarg,Human.Rec.Analog 100 Unit/ML SUBCUT SCH (09:42)
[2020-08-29] MEDS: Nicotine 21 MG/24 Hr Patch TRDERM SCH (09:42)
--- NOTE | 2020-08-29 10:41 | PCM.DCSUM1 ---
Discharge Summary - Hospital Course HPI Initial Comments: 64-year-old male who was discharged yesterday after being in the hospital for 3 days with COVID-19. Patient initially came in and was on 6 L nasal cannula. After getting to units of convalescent plasma we were able to wean off his oxygen and he spent 2 days on the floor without oxygen. He was discharged home off of oxygen. Apparently patient worsened and became short of breath, developed a worsening cough, and weak. He presented to the emergency department oxygenation was 89% on room air. WBC was 11.5 in the emergency department today, improved from discharge at 14. C-reactive protein did increase to 4.7. Creatinine improved to 2.2 and BUN to 52. Patient was placed on nasal cannula and transferred to the floor. Pneumonia secondary to COVID-19 COPD 15-ctox-suif history, stopped smoking 2 weeks ago. Sleep apnea * Admitted on 08/20/2020 and discharged on 08/23/2020 after getting 2 units of convalescent plasma and being on room air for 2 days. * Patient returned to the emergency department today with worsening shortness of breath, PaO2 of 39 on room air, and cough. * Currently requiring 2 to 4 L of O2 via nasal cannula to keep oxygen saturations in the low 90s. * No significant change in chest x-ray since August 20 * Pertinent labs: WBC 11.53, PaO2 39 on room air, CRP 4.7, LDH 365, d-dimer 0.66, ferritin 184 Congestive heart failure with preserved ejection fraction Atrial fibrillation Hypertension Hyperlipidemia * Echocardiogram from June 2019 showed ejection fraction of 55 to 60%. * Home dose of Lasix was 40 mg twice daily, held during last hospitalization. * On Eliquis 5 mg twice daily for stroke prevention * Blood pressure medications adjusted last hospitalization: Carvedilol 25 mg twice daily, losartan 100 mg daily, hydralazine 25 mg 4 times daily. Insulin-dependent diabetespoorly controlled * Hemoglobin A1c 9.5 * Increase Lantus to 50 units at bedtime and Humalog 10 units with each meal. * On Trulicity and alogliptin at home. Stage III-IV chronic renal insufficiency * GFR is up to 30 * Baseline appears to be in the upper 20s to low 30 * He did not receive remdesivir last visit secondary to poor renal function. Graves' disease * TSH normal * Methimazole 5 mg daily. Diagnosis: Stroke: No - Discharge Data Discharge Date: 08/29/20 Discharge Disposition: Home, Self-Care 01 Condition: Stable - Referral to Home Health Primary Care Physician: Alicja Araujo NP - Discharge Diagnosis/Problem(s) (1) COVID-19 SNOMED Code(s): 938522493 ICD Code: U07.1 - COVID-19 Status: Acute Current Visit: Yes (2) Hypoxia SNOMED Code(s): 932739478 ICD Code: R09.02 - HYPOXEMIA Status: Acute Current Visit: Yes (3) COPD (chronic obstructive pulmonary disease) SNOMED Code(s): 76982777 ICD Code: J44.9 - CHRONIC OBSTRUCTIVE PULMONARY DISEASE, UNSPECIFIED Status: Acute Current Visit: No Qualifiers: COPD type: unspecified COPD Qualified Code(s): J44.9 - Chronic obstructive pulmonary disease, unspecified (4) Congestive heart failure (CHF) SNOMED Code(s): 96574042 ICD Code: I50.9 - HEART FAILURE, UNSPECIFIED Status: Acute Current Visit: No Qualifiers: Heart failure type: unspecified Heart failure chronicity: acute Qualified Code(s): I50.9 - Heart failure, unspecified (5) Diabetic nephropathy associated with type 2 diabetes mellitus SNOMED Code(s): 972499339, 650204802 ICD Code: E11.21 - TYPE 2 DIABETES MELLITUS WITH DIABETIC NEPHROPATHY Status: Acute Current Visit: No (6) Graves' disease SNOMED Code(s): 977729332 ICD Code: E05.00 - THYROTOXICOSIS W DIFFUSE GOITER W/O THYROTOXIC CRISIS Status: Acute Current Visit: No (7) Hypertensive heart disease SNOMED Code(s): 08158595 ICD Code: I11.9 - HYPERTENSIVE HEART DISEASE WITHOUT HEART FAILURE Status: Acute Current Visit: No Qualifiers: Heart failure presence: with heart failure Heart failure type: unspecified Qualified Code(s): I11.0 - Hypertensive heart disease with heart failure (8) Obstructive sleep apnea SNOMED Code(s): 31198558 ICD Code: G47.33 - OBSTRUCTIVE SLEEP APNEA (ADULT) (PEDIATRIC) Status: Acute Current Visit: No (9) Pneumonia due to COVID-19 virus SNOMED Code(s): 984574426179549171 ICD Code: U07.1 - COVID-19; J12.89 - OTHER VIRAL PNEUMONIA Status: Acute Current Visit: No (10) Uncontrolled type 2 diabetes mellitus SNOMED Code(s): 490096006, 770258155 ICD Code: E11.65 - TYPE 2 DIABETES MELLITUS WITH HYPERGLYCEMIA Status: Acute Current Visit: No - Patient Summary/Data Consults: Consultations 08/26/20 09:00 Consult to Diabetic Nurse Specialist [CONS] Routine 08/26/20 10:39 PT Evaluation and Treatment [CONS] Routine Hospital Course: 08/24/2020 Pneumonia secondary to COVID-19 COPD 62-[id number]-nllx history, stopped smoking 2 weeks ago. Sleep apnea * Admitted on 08/20/2020 and discharged on 08/23/2020 after getting 2 units of convalescent plasma and being on room air for 2 days. * Patient returned to the emergency department today with worsening shortness of breath, PaO2 of 39 on room air, and cough. * Currently requiring 2 to 4 L of O2 via nasal cannula to keep oxygen saturations in the low 90s. * No significant change in chest x-ray since August 20 * Pertinent labs: WBC 11.53, PaO2 39 on room air, CRP 4.7, LDH 365, d-dimer 0.66, ferritin 184 Congestive heart failure with preserved ejection fraction Atrial fibrillation Hypertension Hyperlipidemia * Echocardiogram from June 2019 showed ejection fraction of 55 to 60%. * Home dose of Lasix was 40 mg twice daily, held during last hospitalization. * On Eliquis 5 mg twice daily for stroke prevention * Blood pressure medications adjusted last hospitalization: Carvedilol 25 mg twice daily, losartan 100 mg daily, hydralazine 25 mg 4 times daily. Insulin-dependent diabetespoorly controlled * Hemoglobin A1c 9.5 * Increase Lantus to 50 units at bedtime and Humalog 10 units with each meal. * On Trulicity and alogliptin at home. Stage III-IV chronic renal insufficiency * GFR is up to 30 * Baseline appears to be in the upper 20s to low 30 * He did not receive remdesivir last visit secondary to poor renal function. Graves' disease * TSH normal * Methimazole 5 mg daily. 08/25/2020 * No significant improvement in hypoxemia secondary to pneumonia and COVID-19. * Currently on 6 L nasal cannula. * WBC down to 7.8, d-dimer 0.45, CRP up to 10.5 * Worsening renal function with GFR of 26 and creatinine of 2.5 * Blood pressures moderately controlled T-max of 100.6 * Blood sugars still in the 200s. * Echocardiogram pending * Day 2 remdesivir, dexamethasone, Rocephin, azithromycin 08/26/2020 Pneumonia secondary to COVID-19 COPD 47-[id number]-qqcu history, stopped smoking 2 weeks ago. Sleep apnea * Improving oxygenation. Currently on 1 L nasal cannula with saturation in the mid 90s. * Afebrile over the last 24 hours * WBC 8.9, CRP 5.7 * Chest x-ray shows no significant change in bilateral pneumonia. Stage IV chronic renal insufficiency Hyperkalemia * Renal insufficiency continues to be poor. No change overnight with a GFR of 26 and creatinine of 2.5. * Remdesivir will have to be held because of his renal insufficiency. Insulin-dependent diabetespoorly controlled * Blood sugars continue in the 300s even with increase in the insulin * Remdesivir worsening blood sugars and his baseline control is poor Congestive heart failure with preserved ejection fraction Atrial fibrillation Hypertension Hyperlipidemia * Blood pressure continues to be elevated even with the addition of amlodipine * Limited echocardiogram 1. Left ventricular ejection fraction, by visual estimation, is 55%. 2. Technically difficult study with suboptimal image quality. Probably normal regional wall motion. 3. Normal right ventricular systolic function. 4. There is mild aortic valve sclerosis without stenosis. 5. No evidence of mitral valve regurgitation. 6. No tricuspid valve regurgitation. 7. The right ventricular systolic pressure is unable to be determined. * Cozaar held secondary to hyperkalemia 08/27/2020 Pneumonia secondary to COVID-19 COPD 56-lqhl-tcxh history, stopped smoking 2 weeks ago. Sleep apnea * Back on room air with oxygen saturations in the mid 90s * Afebrile * WBC 13.9, CRP 3.4 Stage IV chronic renal insufficiency Hyperkalemia * Potassium down to 5.4. * Creatinine 2.3, creatinine clearance of 29, BUN of 75 * Remdesivir will have to be held because of severe renal insufficiency. Insulin-dependent diabetespoorly controlled * Blood sugars continue in the 300s even with increase in the insulin * Dexamethasone worsening blood sugars and his baseline control is poor Congestive heart failure with preserved ejection fraction Atrial fibrillation Hypertension Hyperlipidemia 08/28/2020 Pneumonia secondary to COVID-19 COPD 43-[id number]-wqtd history, stopped smoking 2 weeks ago. Sleep apnea * Back on room air with oxygen saturations in the mid 90s * Afebrile * Completed azithromycin and convalescent plasma * Unable to give him to severe secondary to renal disease Stage IV chronic renal insufficiency Hyperkalemia * Remdesivir will have to be held because of severe renal insufficiency. Insulin-dependent diabetespoorly controlled * Blood sugars continue in the 300s even with increase in the insulin * Dexamethasone worsening blood sugars and his baseline control is poor - Patient Instructions Diet: Diabetic Diet Activity: As Tolerated Driving: May Drive Today, Do Not Drive (for 2 days) Showering/Bathing: May Shower Other/Special Instructions: Follow up with primary care in 1 week. Check home blood sugars 4 times a day. Get a home oxygen meter and check oxygen levels at least 4 times a day. No vigorous activity for several days. - Discharge Plan *PRESCRIPTION DRUG MONITORING PROGRAM REVIEWED*: No *COPY OF PRESCRIPTION DRUG MONITORING REPORT IN PATIENT [place]: No Prescriptions/Med Rec: cloNIDine [Catapres] 0.1 mg PO TID #90 tablet Home Medications: Home Meds Losartan [Cozaar] 100 mg PO DAILY tablet 05/23/19 [Rx] Dulaglutide [Trulicity] 1.5 mg SQ SA 06/26/19 [History] Apixaban [Eliquis] 5 mg PO BID 11/27/19 [History] Diclofenac Sodium [Voltaren 1% Gel] 4 gram TOP QID PRN 11/27/19 [History] Multivitamin [Daily Multiple Vitamin] 1 tab PO DAILY 11/27/19 [History] Sodium Bicarbonate 650 mg PO BID 11/27/19 [History] Albuterol Sulfate [Proventil Hfa] 2 puff INH Q4H PRN 02/07/20 [History] Alogliptin Benzoate [Alogliptin] 25 mg PO DAILY 02/07/20 [History] Mirtazapine 45 mg PO BEDTIME 02/07/20 [History] Nortriptyline 20 mg PO BEDTIME 02/07/20 [History] Rosuvastatin Calcium 20 mg PO BEDTIME 02/07/20 [History] methIMAzole [Tapazole] 5 mg PO DAILY 02/07/20 [History] hydrALAZINE [Apresoline] 25 mg PO BID 08/06/20 [History] Famotidine [Pepcid] 20 mg PO BID #60 tablet 08/23/20 [Rx] Insulin Glarg,Human.Rec.Analog [Lantus] 50 unit SUBCUT BEDTIME ml 08/23/20 [Rx] Nicotine [Habitrol] 21 mg TRDERM DAILY patch 08/23/20 [Rx] carvediloL [Coreg] 25 mg PO BID #120 tablet 08/23/20 [Rx] Insulin Lispro [HumaLOG] 0 unit SUBCUT QIDACANDBED vial 08/29/20 [Rx] cloNIDine [Catapres] 0.1 mg PO TID #90 tablet 08/29/20 [Rx] Oxygen Therapy Mode: Room Air Patient Handouts: COVID-19 Frequently Asked Questions, COVID-19, Sepsis, Diagnosis, Adult, COVID-19: How to Protect Yourself and Others - CDC, Steps to Quit Smoking Forms: ED Department Discharge Referrals: Alicja Araujo, SCREENING NURSE [Primary Care Provider] - (please call and schedule a hospital follow up appointment for within 7-10 days) - Discharge Summary/Plan Comment DC Time >30 min.: Yes - General Info Date of Service: 08/29/20 Admission Dx/Problem (Free Text: Admission Diagnosis/Problem Admission Diagnosis/Problem Hypoxia Subjective Update: Patient continues to improve. He is 48 hours off of oxygen and is having oxygen saturations in the mid and upper 90s. He continues on dexamethasone and blood sugars are better controlled. Functional Status: Reports: Pain Controlled - Review of Systems General: Reports: No Symptoms HEENT: Reports: No Symptoms Pulmonary: Reports: No Symptoms Cardiovascular: Reports: No Symptoms Gastrointestinal: Reports: No Symptoms - Patient Data Vitals - Most Recent: Last Vital Signs Temp 98.4 F 08/29/20 01:47 Pulse 90 08/29/20 09:40 Resp 14 08/29/20 01:47 BP 170/105 H 08/29/20 09:40 Pulse Ox 98 08/29/20 05:32 Weight - Most Recent: 108.862 kg I&O - Last 24 hours: Intake & Output 08/28/20 08/29/20 08/29/20 22:59 06:59 14:59 Intake Total 1520 250 Output Total 125 Balance 1520 125 Lab Results - Last 24 hrs: Laboratory Results - last 24 hr 08/28/20 08/28/20 08/28/20 Range/Units 11:17 16:53 21:36 POC Glucose 251 H 291 H 177 H (80-115) mg/dL 08/29/20 Range/Units 06:22 POC Glucose 189 H (80-115) mg/dL Med Orders - Current: Current Medications Acetaminophen (Tylenol) 650 mg PO Q4H PRN PRN Reason: Pain (Mild 1-3)/fever Hydrocodone Bitart/Acetaminophen ([place] 325-5 Mg) 1 tab PO Q4H PRN PRN Reason: Pain (moderate 4-6) Last Admin: 08/27/20 09:33 Dose: 1 tab Documented by: Albuterol (Proventil Hfa) 0 gm INH Q4H PRN PRN Reason: Shortness of Breath Alogliptin Benzoate (Alogliptin) 12.5 mg PO DAILY [facility] Last Admin: 08/29/20 09:40 Dose: 12.5 mg Documented by: Apixaban (Eliquis) 5 mg PO BID [facility] Last Admin: 08/29/20 09:41 Dose: 5 mg Documented by: Carvedilol (Coreg) 25 mg PO BID [facility] Last Admin: 08/29/20 09:40 Dose: 25 mg Documented by: Clonidine HCl (Catapres) 0.1 mg PO TID [facility] Last Admin: 08/29/20 09:40 Dose: 0.1 mg Documented by: Dexamethasone (Dexamethasone) 6 mg PO Q24H [facility] Stop: 08/31/20 17:31 Last Admin: 08/28/20 16:57 Dose: 6 mg Documented by: Dextrose/Water (Dextrose 50% In Water) 50 ml IVPUSH ASDIRECTED PRN PRN Reason: Hypoglycemia Famotidine (Pepcid) 20 mg PO BEDTIME [facility] Last Admin: 08/28/20 21:27 Dose: 20 mg Documented by: Hydralazine HCl (Apresoline) 25 mg PO QID [facility] Last Admin: 08/29/20 09:39 Dose: 25 mg Documented by: Hydromorphone HCl (Dilaudid) 0.25 mg IVPUSH Q4HR PRN PRN Reason: Pain (severe 7-10) Last Admin: 08/29/20 09:41 Dose: 0.25 mg Documented by: Insulin Glargine (Lantus) 50 unit SUBCUT BEDTIME [facility] Last Admin: 08/28/20 22:01 Dose: 50 units Documented by: Insulin Glargine (Lantus) 20 unit SUBCUT DAILY [facility] Last Admin: 08/29/20 09:42 Dose: 20 units Documented by: Insulin Human Lispro (Humalog) 0 unit SUBCUT QIDACANDBED [facility]; Protocol Last Admin: 08/29/20 07:50 Dose: 3 units Documented by: Insulin Human Lispro (Humalog) 20 unit SUBCUT TIDAC [facility] Last Admin: 08/29/20 07:51 Dose: 20 units Documented by: Methimazole (Methimazole) 5 mg PO DAILY [facility] Last Admin: 08/29/20 09:40 Dose: 5 mg Documented by: Mirtazapine (Remeron) 45 mg PO BEDTIME [facility] Last Admin: 08/28/20 21:25 Dose: 45 mg Documented by: Miscellaneous Information (Remove Patch) 1 ea TRDERM DAILY [facility] Last Admin: 08/29/20 09:50 Dose: 1 ea Documented by: Nicotine (Habitrol) 21 mg TRDERM DAILY [facility] Last Admin: 08/29/20 09:42 Dose: 21 mg Documented by: Nortriptyline HCl (Nortriptyline) 20 mg PO BEDTIME [facility] Last Admin: 08/28/20 21:27 Dose: 20 mg Documented by: Ondansetron HCl (Zofran) 4 mg IV Q4H PRN PRN Reason: Nausea/Vomiting Polyethylene Glycol (Miralax) 17 gm PO DAILY PRN PRN Reason: Constipation Rosuvastatin Calcium (Crestor) 20 mg PO BEDTIME [facility] Last Admin: 08/28/20 21:28 Dose: 20 mg Documented by: Senna/Docusate Sodium (Senna Plus) 1 tab PO BID PRN PRN Reason: Constipation Last Admin: 08/25/20 12:57 Dose: 1 tab Documented by: Sodium Bicarbonate (Sodium Bicarbonate) 650 mg PO BID [facility] Last Admin: 08/29/20 09:41 Dose: 650 mg Documented by: Discontinued Medications Alogliptin Benzoate (Alogliptin) 25 mg PO DAILY [facility] Last Admin: 08/26/20 08:44 Dose: 25 mg Documented by: Amlodipine Besylate (Norvasc) 5 mg PO DAILY [facility] Last Admin: 08/28/20 08:59 Dose: Not Given Documented by: Amlodipine Besylate (Norvasc) 5 mg PO BEDTIME [facility] Last Admin: 08/27/20 22:31 Dose: Not Given Documented by: Amlodipine Besylate (Norvasc) 5 mg PO BEDTIME [facility] Carvedilol (Coreg) 25 mg PO BIDMEALS [facility] Last Admin: 08/24/20 18:43 Dose: Not Given Documented by: Famotidine (Pepcid) 20 mg PO BID [facility] Stop: 08/24/20 21:01 Last Admin: 08/24/20 20:05 Dose: 20 mg Documented by: Furosemide (Lasix) 20 mg IVPUSH NOW ONE Stop: 08/26/20 08:01 Last Admin: 08/26/20 08:45 Dose: 20 mg Documented by: Hydralazine HCl (Apresoline) 25 mg PO QID [facility] Last Admin: 08/24/20 17:19 Dose: Not Given Documented by: Hydromorphone HCl (Dilaudid) Confirm Administered Dose 0.5 mg .ROUTE .STK-MED ONE Stop: 08/24/20 14:07 Last Admin: 08/24/20 14:11 Dose: Not Given Documented by: Hydromorphone HCl (Dilaudid) 0.5 mg IVPUSH ONETIME [facility]A Stop: 08/24/20 14:12 Last Admin: 08/24/20 14:15 Dose: 0.5 mg Documented by: Hydromorphone HCl (Dilaudid) 0.25 mg IVPUSH Q2H PRN PRN Reason: Pain (severe 7-10) Remdesivir 100 mg/ Sodium (Chloride) 100 mls @ 100 mls/hr IV Q24H [facility] Stop: 08/28/20 18:29 Last Admin: 08/25/20 16:34 Dose: 100 mls/hr Documented by: Remdesivir 200 mg/ Sodium (Chloride) 250 mls @ 250 mls/hr IV ONETIME ONE Stop: 08/24/20 19:14 Last Admin: 08/24/20 18:31 Dose: 250 mls/hr Documented by: Sodium Chloride (Normal Saline) Confirm Administered Dose 250 mls @ as directed .ROUTE .STK-MED ONE Stop: 08/24/20 18:13 Last Admin: 08/24/20 18:35 Dose: Not Given Documented by: Ceftriaxone Sodium 2 gm/ (Sodium Chloride) 100 mls @ 200 mls/hr IV Q24H [facility] Stop: 08/28/20 20:59 Last Admin: 08/28/20 21:21 Dose: 200 mls/hr Documented by: Azithromycin 500 mg/ Sodium (Chloride) 250 mls @ 250 mls/hr IV Q24H [facility] Stop: 08/26/20 21:59 Last Admin: 08/26/20 21:58 Dose: 250 mls/hr Documented by: Influenza Virus Vaccine (Pharmacy To Dose - Influenza Vaccine) 1 each IM ONETIME ONE Stop: 08/24/20 14:37 Influenza Virus Vaccine (Fluzone Quad [id number] Syringe) 60 mcg IM .ONCE ONE Stop: 08/24/20 14:46 Insulin Glargine (Lantus) 10 unit SUBCUT DAILY [facility] Last Admin: 08/26/20 09:02 Dose: 10 units Documented by: Insulin Human Lispro (Humalog) [facility] Last Admin: 08/26/20 18:54 Dose: 10 unit Documented by: Insulin Human Lispro (Humalog) 0 unit SUBCUT QIDACANDBED [facility]; Protocol Last Admin: 08/27/20 16:22 Dose: Not Given Documented by: Insulin Human Lispro (Humalog) [facility] Last Admin: 08/27/20 18:14 Dose: 15 units Documented by: Insulin Human Lispro (Humalog) 20 unit SUBCUT ONETIME ONE Stop: 08/27/20 13:38 Last Admin: 08/27/20 13:52 Dose: 20 units Documented by: Losartan Potassium (Cozaar) 100 mg PO DAILY [facility] Last Admin: 08/25/20 08:20 Dose: 100 mg Documented by: Ondansetron HCl (Zofran) 4 mg IVPUSH ONETIME ONE Stop: 08/24/20 13:40 Last Admin: 08/24/20 14:15 Dose: 4 mg Documented by: Oxycodone HCl (Oxycodone) 10 mg PO Q4H PRN PRN Reason: Pain (moderate 4-6) Last Admin: 08/24/20 20:07 Dose: 10 mg Documented by: - Exam Quality Assessment: Denies: Supplemental Oxygen General: Reports: Alert, Oriented HEENT: Reports: Pupils Equal, Mucous Membr. Moist/[place] Neck: Reports: Supple Lungs: Reports: Normal Respiratory Effort, Decreased Breath Sounds Cardiovascular: Reports: Irregular Rhythm (Irregular rate) GI/Abdominal Exam: Normal Bowel Sounds, Soft, Non-Tender, No Organomegaly, No Distention (Obese) Extremities: Normal Inspection, Non-Tender, No Pedal Edema, Normal Capillary Refill Skin: Reports: Warm, Dry, Intact Neurological: Reports: No New Focal Deficit Psy/Mental Status: Reports: Alert, Normal Affect, Normal Mood
[2020-08-29] MEDS ORDERED: FLU VACC QS2020-21(6MOS UP)/PF 60 MCG/0.5 ML SYRINGE IM ONE (12:30)
--- NOTE | 2020-09-29 08:53 | CR ---
PROCEDURE INFORMATION: Exam: XR Chest, 1 View Exam date and time: 08/24/2020 11:58 AM Age: 64 years old Clinical indication: Shortness of breath; Patient HX: Covid TECHNIQUE: Imaging protocol: XR of the chest Views: 1 view. COMPARISON: CR Chest 1V Frontal 08/20/2020 9:08 AM FINDINGS: Lungs: When compared to the previous examination, there is increasing peripheral airspace opacity within both lungs. Findings are compatible with nipple multilobar pneumonia. Atypical/viral etiologies possible. Pleural space: Unremarkable. No pleural effusion. No pneumothorax. Heart/Mediastinum: There is moderate grade cardiomegaly. Bones/joints: Unremarkable. IMPRESSION: Increasing multifocal airspace opacity concerning for progression in atypical pneumonia. Thank you for allowing us to participate in the care of your patient. Dictated and Authenticated by: Mino Díaz MD 09/26/2020 12:25 PM Central Time ([place] & [place]) ANGELA
--- NOTE | 2020-09-29 13:39 | CR ---
PROCEDURE INFORMATION: Exam: XR Chest, 1 View Exam date and time: 08/26/2020 7:01 AM Age: 64 years old Clinical indication: Condition or disease; Other: Covid-19 pneumonia TECHNIQUE: Imaging protocol: XR of the chest Views: 1 view. COMPARISON: CR Chest 1V Frontal 08/24/2020 11:58 AM FINDINGS: Lungs: Ill-defined bilateral foci of airspace disease in both lungs not significantly changed in the interval when allowing for increased lung volumes and technical differences. Pleural space: No right pleural effusion. There is a small left pleural effusion versus pleural thickening. No pneumothorax. Heart/Mediastinum: The cardiac silhouette is not enlarged. The mediastinum is slightly widened perhaps due to mediastinal lipomatosis given the patient's body habitus. Bones/joints: There are multilevel bridging osteophytes in the spine. IMPRESSION: No significant change in bilateral pneumonia. COMMENTS: The exam was performed on 08/26/2020 but only presented for FINAL interpretation today. Thank you for allowing us to participate in the care of your patient. Dictated and Authenticated by: Deangelo López MD 09/23/2020 8:19 AM Central Time ([place] & [place]) ANGELA
== END 2020-08-29 13:15 | disposition home or self-care (01) | DRG 177 ==
LOC: JD.ED 10:34 → JD.MS 13:34
PROVIDERS: ADMIT Family Medicine; ATTEND Family Medicine
PROC: XW033E5 Introduction of Remdesivir Anti-infective into Peripheral Vein, Percutaneous Approach, New Technology Group 5 (ICD-10-PCS; principal; 2020-08-24)
DX: U07.1 COVID-19 (principal); J12.89 Other viral pneumonia; I50.31 Acute diastolic (congestive) heart failure; J44.0 Chronic obstructive pulmonary disease with (acute) lower respiratory infection; N18.4 Chronic kidney disease, stage 4 (severe); R09.02 Hypoxemia; H91.90 Unspecified hearing loss, unspecified ear; I13.0 Hypertensive heart and chronic kidney disease with heart failure and stage 1 through stage 4 chronic kidney disease, or unspecified chronic kidney disease; H54.7 Unspecified visual loss; E78.5 Hyperlipidemia, unspecified; E11.21 Type 2 diabetes mellitus with diabetic nephropathy; E05.00 Thyrotoxicosis with diffuse goiter without thyrotoxic crisis or storm; G47.33 Obstructive sleep apnea (adult) (pediatric); E11.65 Type 2 diabetes mellitus with hyperglycemia; H40.9 Unspecified glaucoma; E87.5 Hyperkalemia; F41.9 Anxiety disorder, unspecified; F32.9 Major depressive disorder, single episode, unspecified; E66.9 Obesity, unspecified; Z87.891 Personal history of nicotine dependence; E78.00 Pure hypercholesterolemia, unspecified; I50.9 Heart failure, unspecified; I11.0 Hypertensive heart disease with heart failure; J44.9 Chronic obstructive pulmonary disease, unspecified; I48.91 Unspecified atrial fibrillation; Z68.34 Body mass index [BMI] 34.0-34.9, adult; K21.9 Gastro-esophageal reflux disease without esophagitis; N18.9 Chronic kidney disease, unspecified; E11.22 Type 2 diabetes mellitus with diabetic chronic kidney disease; M19.90 Unspecified osteoarthritis, unspecified site; Z85.46 Personal history of malignant neoplasm of prostate; Z88.0 Allergy status to penicillin; Z88.2 Allergy status to sulfonamides; Z79.01 Long term (current) use of anticoagulants; Z79.4 Long term (current) use of insulin; Z79.899 Other long term (current) drug therapy
CPT/HCPCS: 36415; 36600; 71045; 71045-26; 80053; 82728; 82803; 82947; 82962; 83615; 83735; 84100; 84145; 85007; 85025; 85027; 85379; 86140; 90686; 93005; 93308; 94660; 94761; 96365; 96375; 97162-GP; 99222; 99232; 99239; 99285; 99285-25; A9270-GY; G0008; J0456; J0696; J1170; J1815-GY; J2405; J7050; J8540

== ENCOUNTER 2020-08-30 18:40 | Emergency (ER) | payer OTHER ==
[2020-08-30] MEDS ORDERED: Sodium Chloride 0.9% 10 ML Syringe FLUSH PRN (19:22)
--- NOTE | 2020-08-30 20:12 | EDM.PDOC ---
ED HPI GENERAL MEDICAL PROBLEM - General Chief Complaint: Respiratory Problem Stated Complaint: WAS COVID POSITIVE/COUGHING UP BLOOD/SOB Time Seen by Provider: 08/30/20 19:00 Source of Information: Reports: Patient History Limitations: Reports: No Limitations - History of Present Illness INITIAL COMMENTS - FREE TEXT/NARRATIVE: The patient presents with shortness of breath and chest tightness. He has been admitted twice for COVID 19. He was just released from the hospital yesterday. He is still short of breath. He has a slight cough. He has no fever or chills. He has tightness to his upper chest. He was saturating 94% when he came in. He has an inhaler. He has no abdominal pain, nausea or vomiting. Onset: Gradual Duration: Week(s): Location: Reports: Chest Quality: Reports: Other (tightness) Severity: Moderate Improves with: Reports: None Worsens with: Reports: None Associated Symptoms: Reports: Chest Pain, Cough, Shortness of Breath. Denies: Fever/Chills, Headaches, Nausea/Vomiting Bilateral Upper Chest Pain Score (Numeric/FACES): 5 - Related Data Allergies Allergy/AdvReac Type Severity Reaction Status Date / Time Penicillins Allergy Mild Hives Verified 08/24/20 13:08 Sulfa (Sulfonamide Allergy Mild Hives Verified 08/24/20 13:08 Antibiotics) Home Meds: Home Meds Losartan [Cozaar] 100 mg PO DAILY tablet 05/23/19 [Rx] Dulaglutide [Trulicity] 1.5 mg SQ SA 06/26/19 [History] Apixaban [Eliquis] 5 mg PO BID 11/27/19 [History] Diclofenac Sodium [Voltaren 1% Gel] 4 gram TOP QID PRN 11/27/19 [History] Multivitamin [Daily Multiple Vitamin] 1 tab PO DAILY 11/27/19 [History] Sodium Bicarbonate 650 mg PO BID 11/27/19 [History] Albuterol Sulfate [Proventil Hfa] 2 puff INH Q4H PRN 02/07/20 [History] Alogliptin Benzoate [Alogliptin] 25 mg PO DAILY 02/07/20 [History] Mirtazapine 45 mg PO BEDTIME 02/07/20 [History] Nortriptyline 20 mg PO BEDTIME 02/07/20 [History] Rosuvastatin Calcium 20 mg PO BEDTIME 02/07/20 [History] methIMAzole [Tapazole] 5 mg PO DAILY 02/07/20 [History] hydrALAZINE [Apresoline] 25 mg PO BID 08/06/20 [History] Famotidine [Pepcid] 20 mg PO BID #60 tablet 08/23/20 [Rx] Insulin Glarg,Human.Rec.Analog [Lantus] 50 unit SUBCUT BEDTIME ml 08/23/20 [Rx] Nicotine [Habitrol] 21 mg TRDERM DAILY patch 08/23/20 [Rx] carvediloL [Coreg] 25 mg PO BID #120 tablet 08/23/20 [Rx] Insulin Lispro [HumaLOG] 0 unit SUBCUT QIDACANDBED vial 08/29/20 [Rx] cloNIDine [Catapres] 0.1 mg PO TID #90 tablet 08/29/20 [Rx] Past Medical History HEENT History: Reports: Glaucoma, Hard of Hearing, Impaired Vision, Sinusitis Other HEENT History: wears eyeglasses for driving only Cardiovascular History: Reports: Afib, Heart Failure, High Cholesterol, Hypertension, SOB on Exertion Respiratory History: Reports: Bronchitis, Recurrent, COPD, Pneumonia, Recurrent, Sleep Apnea Other Respiratory History: hypoxemic respiratory failure Gastrointestinal History: Reports: Diverticulosis, GERD Genitourinary History: Reports: Chronic Renal Insuffiency, Diabetic Nephropathy Other Genitourinary History: Hx of prostate cancer. 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 - Past Surgical History Head Surgeries/Procedures: Reports: None Cardiovascular Surgical History: Reports: None Respiratory Surgical History: Reports: None GI Surgical History: Reports: Appendectomy Male Surgical History: Reports: None Endocrine Surgical History: Reports: None Neurological Surgical History: Reports: None Musculoskeletal Surgical History: Reports: None Oncologic Surgical History: Reports: None Social & Family History - Family History Family Medical History: Noncontributory Cardiac: Reports: Heart Failure Respiratory: Reports: Asthma - Caffeine Use Caffeine Use: Reports: Coffee, Tea Other Caffeine Use: 2 cups a day - Living Situation & Occupation Living situation: Reports: , with Spouse 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) ED ROS GENERAL - Review of Systems Review Of Systems: See Below Constitutional: Reports: No Symptoms HEENT: Reports: No Symptoms Respiratory: Reports: Shortness of Breath, Cough Cardiovascular: Reports: Chest Pain Endocrine: Reports: No Symptoms GI/Abdominal: Reports: No Symptoms : Reports: No Symptoms Musculoskeletal: Reports: No Symptoms ED EXAM, GENERAL - Physical Exam Exam: See Below Exam Limited By: No Limitations General Appearance: Alert, No Apparent Distress Ears: Normal External Exam Nose: Normal Inspection Head: Atraumatic, Normocephalic Neck: Normal Inspection, Supple, Non-Tender Respiratory/Chest: No Respiratory Distress, Rhonchi (Mild) Cardiovascular: Regular Rate, Rhythm, No Edema, No Murmur GI/Abdominal: Soft, Non-Tender, No Organomegaly, No Mass Back Exam: Normal Inspection Extremities: Normal Inspection Course - Vital Signs Last Recorded V/S: Last Vital Signs Temp 98.2 F 08/30/20 18:56 Pulse 98 08/30/20 18:56 Resp 18 08/30/20 18:56 BP 155/92 H 08/30/20 18:56 Pulse Ox 94 L 08/30/20 19:22 - Orders/Labs/Meds Orders: Active Orders 24 hr Category Date Time Status Cardiac Monitoring [RC] . DIRECTED Care 08/30/20 19:22 Active Oxygen Therapy [RC] PRN Care 08/30/20 19:22 Active Peripheral IV Care [RC] . DIRECTED Care 08/30/20 19:23 Active Chest 1V Frontal [CR] Stat Exams 08/30/20 19:23 Taken Sodium Chloride 0.9% [Saline Flush] Med 08/30/20 19:22 Active 10 ml FLUSH ASDIRECTED PRN Blood Culture x2 Reflex Set [OM.PC] Stat Oth 08/30/20 20:51 Ordered Peripheral IV Insertion Adult [OM.PC] Stat Oth 08/30/20 19:22 Ordered Medication Orders Sodium Chloride (Saline Flush) 10 ml FLUSH ASDIRECTED PRN PRN Reason: Keep Vein Open Last Admin: 08/30/20 22:27 Dose: 10 ml Documented by: DION Labs: Laboratory Tests 08/30/20 08/30/20 08/30/20 Range/Units 20:20 20:20 20:20 WBC 15.84 H (4.23-9.07) K/mm3 RBC 3.85 L (4.63-6.08) M/mm3 Hgb 12.0 L (13.7-17.5) gm/dl Hct 38.3 L (40.1-51.0) % MCV 99.5 H (79.0-92.2) fl MCH 31.2 (25.7-32.2) pg MCHC 31.3 L (32.2-35.5) g/dl RDW Std Deviation 53.3 H (35.1-43.9) fL Plt Count 163 (163-337) K/mm3 MPV 11.1 (9.4-12.3) fl Neut % (Auto) 80.7 H (34.0-67.9) % Lymph % (Auto) 4.6 L (21.8-53.1) % [place] % (Auto) 9.8 (5.3-12.2) % Eos % (Auto) 0.4 L (0.8-7.0) Baso % (Auto) 0.3 (0.1-1.2) % Neut # (Auto) 12.79 H (1.78-5.38) K/mm3 Lymph # (Auto) 0.73 L (1.32-3.57) K/mm3 [place] # (Auto) 1.56 H (0.30-0.82) K/mm3 Eos # (Auto) 0.06 (0.04-0.54) K/mm3 Baso # (Auto) 0.04 (0.01-0.08) K/mm3 Manual Slide Review Abnormal smear D-Dimer, Quantitative 1.25 H (0.19-0.50) mg/L Sodium 134 L (136-145) mEq/L Potassium 5.4 H (3.5-5.1) mEq/L Chloride 100 (98-107) mEq/L Carbon Dioxide 26 (21-32) mEq/L Anion Gap 13.4 (5-15) BUN 58 H (7-18) mg/dL Creatinine 2.5 H (0.7-1.3) mg/dL Est Cr Clr Drug Dosing 31.63 mL/min Estimated GFR (MDRD) 26 (>60) mL/min BUN/Creatinine Ratio 23.2 H (14-18) Glucose 360 H (80-115) mg/dL Lactic Acid (0.4-2.0) mmol/L Calcium 7.8 L (8.5-10.1) mg/dL Ferritin (26-388) ng/ml Total Bilirubin 0.6 (0.2-1.0) mg/dL AST 26 (15-37) U/L ALT 44 (16-63) U/L Alkaline Phosphatase 77 (46-116) U/L Lactate Dehydrogenase (85-227) U/L C-Reactive Protein 11.3 H* (<1.0) mg/dL Total Protein 6.2 L (6.4-8.2) g/dl Albumin 2.3 L (3.4-5.0) g/dl Globulin 3.9 gm/dL Albumin/Globulin Ratio 0.6 L (1-2) 08/30/20 08/30/20 08/30/20 Range/Units 20:20 20:20 22:00 WBC (4.23-9.07) K/mm3 RBC (4.63-6.08) M/mm3 Hgb (13.7-17.5) gm/dl Hct (40.1-51.0) % MCV (79.0-92.2) fl MCH (25.7-32.2) pg MCHC (32.2-35.5) g/dl RDW Std Deviation (35.1-43.9) fL Plt Count (163-337) K/mm3 MPV (9.4-12.3) fl Neut % (Auto) (34.0-67.9) % Lymph % (Auto) (21.8-53.1) % [place] % (Auto) (5.3-12.2) % Eos % (Auto) (0.8-7.0) Baso % (Auto) (0.1-1.2) % Neut # (Auto) (1.78-5.38) K/mm3 Lymph # (Auto) (1.32-3.57) K/mm3 [place] # (Auto) (0.30-0.82) K/mm3 Eos # (Auto) (0.04-0.54) K/mm3 Baso # (Auto) (0.01-0.08) K/mm3 Manual Slide Review D-Dimer, Quantitative (0.19-0.50) mg/L Sodium (136-145) mEq/L Potassium (3.5-5.1) mEq/L Chloride (98-107) mEq/L Carbon Dioxide (21-32) mEq/L Anion Gap (5-15) BUN (7-18) mg/dL Creatinine (0.7-1.3) mg/dL Est Cr Clr Drug Dosing mL/min Estimated GFR (MDRD) (>60) mL/min BUN/Creatinine Ratio (14-18) Glucose (80-115) mg/dL Lactic Acid 1.1 (0.4-2.0) mmol/L Calcium (8.5-10.1) mg/dL Ferritin 250 (26-388) ng/ml Total Bilirubin (0.2-1.0) mg/dL AST (15-37) U/L ALT (16-63) U/L Alkaline Phosphatase (46-116) U/L Lactate Dehydrogenase 314 H (85-227) U/L C-Reactive Protein (<1.0) mg/dL Total Protein (6.4-8.2) g/dl Albumin (3.4-5.0) g/dl Globulin gm/dL Albumin/Globulin Ratio (1-2) Meds: Medications Generic Name Dose Route Start Last Admin Trade Name Freq PRN Reason Stop Dose Admin Sodium Chloride 10 ml 08/30/20 19:22 08/30/20 22:27 Saline Flush FLUSH 10 ml ASDIRECTED PRN Administration Keep Vein Open Discontinued Medications Generic Name Dose Route Start Last Admin Trade Name Freq PRN Reason Stop Dose Admin Hydromorphone HCl 1 mg 08/30/20 22:13 08/30/20 22:23 Dilaudid IVPUSH 08/30/20 22:14 1 mg ONETIME ONE Administration Ceftriaxone Sodium 2 gm/ 100 mls @ 200 mls/hr 08/30/20 21:48 08/30/20 22:24 Sodium Chloride IV 08/30/20 22:17 200 mls/hr ONETIME ONE Administration - Re-Assessments/Exams Free Text/Narrative Re-Assessment/Exam: 08/30/20 20:12 I ordered oxygen PRN, IV saline lock, labs and a CXR. 08/31/20 00:06 His CXR shows worsening bilateral areas of patchy consolidation. It appears worse then both times he was admitted. His WBC was elevated at 15.84. his Hgb is low at 12. His D-dimer is elevated at 1.25. His Na is low at 134. His K is a little elevated at 5.4. His creatinine is elevated at 2.5. That appears to be around his baseline. His glucose is 360. his lactic acid is normal. His LDH is still elevated at 314. His CRP is elevated at 11.3. I have ordered rocephin 2 grams IV. I am concerned this could be a secondary pneumonia. I feel he needs to be admitted again but we have no beds here. [facility] has no beds in [place] and [place] in [place] had no beds. [place] also had no beds. I will call [facility] and see if they have beds. 08/31/20 01:35 [facility] [place] and talked with the hospitalist sonographer Dr Merlos and she accepted the patient. 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 DIRECTED Oxygen Therapy [RC] PRN Sodium Chloride 0.9% [Saline Flush] 10 ml FLUSH ASDIRECTED PRN Peripheral IV Insertion Adult [OM.PC] Stat 08/30/20 19:23 Peripheral IV Care [RC] . DIRECTED Chest 1V Frontal [CR] Stat 08/30/20 20:51 Blood Culture x2 Reflex Set [OM.PC] Stat - Assessment/Plan Last 24 Hours: My Active Orders 08/30/20 19:22 Cardiac Monitoring [RC] . DIRECTED Oxygen Therapy [RC] PRN Sodium Chloride 0.9% [Saline Flush] 10 ml FLUSH ASDIRECTED PRN Peripheral IV Insertion Adult [OM.PC] Stat 08/30/20 19:23 Peripheral IV Care [RC] . DIRECTED Chest 1V Frontal [CR] Stat 08/30/20 20:51 Blood Culture x2 Reflex Set [OM.PC] Stat
[2020-08-30] MEDS ORDERED: cefTRIAXone 2 GM in Sodium Chloride 0.9% 100 ML IV ONE (21:48)
[2020-08-30] MEDS ORDERED: HYDROmorphone 1 MG/ML Syringe IVPUSH ONE (22:13)
== END 2020-08-31 04:10 ==
LOC: JD.ED 18:40
DX: U07.1 COVID-19 (principal); J12.89 Other viral pneumonia; R09.02 Hypoxemia; I48.91 Unspecified atrial fibrillation; I13.0 Hypertensive heart and chronic kidney disease with heart failure and stage 1 through stage 4 chronic kidney disease, or unspecified chronic kidney disease; I50.9 Heart failure, unspecified; N18.9 Chronic kidney disease, unspecified; E11.22 Type 2 diabetes mellitus with diabetic chronic kidney disease; E78.00 Pure hypercholesterolemia, unspecified; J44.9 Chronic obstructive pulmonary disease, unspecified; E11.21 Type 2 diabetes mellitus with diabetic nephropathy; E66.9 Obesity, unspecified; Z68.35 Body mass index [BMI] 35.0-35.9, adult; Z88.0 Allergy status to penicillin; Z88.2 Allergy status to sulfonamides; Z79.01 Long term (current) use of anticoagulants; Z79.4 Long term (current) use of insulin
CPT/HCPCS: 36415; 71045; 80053; 82728; 83605; 83615; 85025; 85379; 86140; 96365; 96375; 99285; J0696; J1170; J7050; 99284

== ENCOUNTER 2020-09-06 17:32 | Emergency (ER) | payer OTHER ==
--- NOTE | 2020-09-06 19:48 | EDM.PDOC ---
ED HPI GENERAL MEDICAL PROBLEM - General Chief Complaint: Gastrointestinal Problem Stated Complaint: COVID + AND VOMITING Time Seen by Provider: 09/06/20 19:09 Source of Information: Reports: Patient, Old Records History Limitations: Reports: No Limitations - History of Present Illness INITIAL COMMENTS - FREE TEXT/NARRATIVE: Mr. Paige is a pleasant 64-year-old gentleman with a past medical history of chronic atrial fibrillation, on Eliquis, and diastolic CHF, who, medical records indicate, was seen in this ED on 08/20/2020 with a complaint at that time of several days of chest pain, dyspnea, fever, and cough. He was found to be positive for COVID-19, and admitted to this hospital through 08/23/2020. During his stay, he was treated with both convalescent plasma and dexamethasone, however, he did not receive remdesivir, due to his renal insufficiency. He then returned to this ED the following day, on 08/24/2020, with continued symptoms, and was readmitted to this hospital through 08/29/2020. He then returned to this ED the following day, 08/30/2020, and was transferred to the [facility] in [place], where he stayed until 09/02/2020. The patient now returns the ED stating that he has had intermittent dyspnea, even at rest, epistaxis when he blows his nose, blood clots from his mouth when he coughs, slight nausea without vomiting, and chills without documented fever, all since his COVID-19 diagnosis on 08/20/2020. He states that his blood glucoses have been in the 560 to 600 range for the past 2 weeks (likely due to the dexamethasone that he is on). He has had urinary frequency without dysuria. He feels thirsty. He states that he feels constipated and that he has a headache. No recent diarrhea. He also reports developing left chest stabbing pain coming and going tonight. He locates the pain to under his left pectoralis muscle. He states that the pain will last moments, and recur about once an hour. Here in the ED, the patient's initial BP is found to be elevated at 171/89, otherwise, he is hemodynamically stable, afebrile, saturating 96% on room air. The patient denies having a recent sore throat, ear pain, nasal or sinus congestion, vomiting, diarrhea, abdominal pain, urinary symptoms, recent weight gain or weight loss, recent bloody bowel movements or black bowel movements, recent joint aches, or rashes. The patient's PCP is Dr. Mell Flood, at the [facility]. Chest Pain Score (Numeric/FACES): 9 Left Upper Back Pain Score (Numeric/FACES): 8 - Related Data Allergies Allergy/AdvReac Type Severity Reaction Status Date / Time Penicillins Allergy Mild Hives Verified 09/06/20 18:38 Sulfa (Sulfonamide Allergy Mild Hives Verified 09/06/20 18:38 Antibiotics) Home Meds: Home Meds Losartan [Cozaar] 100 mg PO DAILY tablet 05/23/19 [Rx] Dulaglutide [Trulicity] 1.5 mg SQ SA 06/26/19 [History] Apixaban [Eliquis] 5 mg PO BID 11/27/19 [History] Diclofenac Sodium [Voltaren 1% Gel] 4 gram TOP QID PRN 11/27/19 [History] Multivitamin [Daily Multiple Vitamin] 1 tab PO DAILY 11/27/19 [History] Sodium Bicarbonate 650 mg PO BID 11/27/19 [History] Albuterol Sulfate [Proventil Hfa] 2 puff INH Q4H PRN 02/07/20 [History] Alogliptin Benzoate [Alogliptin] 25 mg PO DAILY 02/07/20 [History] Mirtazapine 45 mg PO BEDTIME 02/07/20 [History] Nortriptyline 20 mg PO BEDTIME 02/07/20 [History] Rosuvastatin Calcium 20 mg PO BEDTIME 02/07/20 [History] methIMAzole [Tapazole] 5 mg PO DAILY 02/07/20 [History] hydrALAZINE [Apresoline] 25 mg PO BID 08/06/20 [History] Famotidine [Pepcid] 20 mg PO BID #60 tablet 08/23/20 [Rx] Insulin Glarg,Human.Rec.Analog [Lantus] 50 unit SUBCUT BEDTIME ml 08/23/20 [Rx] Nicotine [Habitrol] 21 mg TRDERM DAILY patch 08/23/20 [Rx] carvediloL [Coreg] 25 mg PO BID #120 tablet 08/23/20 [Rx] Insulin Lispro [HumaLOG] 0 unit SUBCUT QIDACANDBED vial 08/29/20 [Rx] cloNIDine [Catapres] 0.1 mg PO TID #90 tablet 08/29/20 [Rx] Past Medical History HEENT History: Reports: Glaucoma, Hard of Hearing, Impaired Vision (wears eyeglasses for driving only) Cardiovascular History: Reports: Afib (chronic), Heart Failure (diastolic), High Cholesterol, Hypertension Respiratory History: Reports: COPD (suspected, not tested), Sleep Apnea (nightly CPAP 9) Gastrointestinal History: Reports: Diverticulosis (diverticulitis), GERD Genitourinary History: Reports: Diabetic Nephropathy Musculoskeletal History: Reports: Arthritis (right thumb) Psychiatric History: Reports: Anxiety, Depression Endocrine/Metabolic History: Reports: Diabetes, Type II, Hyperthyroidism, Obesity/BMI 30+ Oncologic (Cancer) History: Reports: Prostate (s/p brachytherapy) - Infectious Disease History Infectious Disease History: Reports: Novel Coronavirus (dx'd 08/20/2020), Other (See Below) ([place] Spotted Fever) - Past Surgical History GI Surgical History: Reports: Appendectomy, EGD (x 1) Male Surgical History: Reports: Other (See Below) (Left kidney bx) Oncologic Surgical History: Reports: Other (See Below) (Prostate brachiotherapy) Social & Family History - Family History Family Medical History: Noncontributory Cardiac: Reports: Heart Failure Respiratory: Reports: Asthma - Tobacco Use Tobacco Use Status *Q: Former Tobacco User Years of Tobacco use: 49 Packs/Tins Daily: 3 Month/Year Tobacco Last Used: Quit Jun 2020 - Caffeine Use Caffeine Use: Reports: Coffee, Energy Drinks Other Caffeine Use: 2 cups a day - Alcohol Use Alcohol Use History: Yes Alcohol Use Frequency: Rarely - Recreational Drug Use Recreational Drug Use: Yes Drug Use in Last 12 Months: Yes Recreational Drug Type: Reports: Marijuana/Hashish (CBD oil daily) - Living Situation & Occupation Living situation: Reports: , with Spouse Occupation: Retired ED ROS GENERAL - Review of Systems Review Of Systems: Comprehensive ROS is negative, except as noted in HPI. ED EXAM, GENERAL - Physical Exam Exam: See Below Exam Limited By: No Limitations General Appearance: Alert, WD/WN, No Apparent Distress Eye Exam: Bilateral Eye: EOMI, Normal Inspection Ears: Normal External Exam, Hearing Grossly Normal Nose: Normal Inspection Throat/Mouth: Normal Inspection, Normal Lips, Normal Voice, No Airway Compromise Head: Atraumatic, Normocephalic Neck: Normal Inspection, Full Range of Motion Respiratory/Chest: No Respiratory Distress, No Accessory Muscle Use, Rhonchi (when supine, but essentially CTAB when upright). No: Decreased Breath Sounds, Crackles, Wheezing, Stridor, Prolonged Expiration Cardiovascular: No Gallop, No JVD, No Murmur, No Rub, Irregularly Irregular (regular rate) Peripheral Pulses: 2+: Radial (L), Radial (R) GI/Abdominal: Normal Bowel Sounds, Soft, No Organomegaly, No Distention, No Abnormal Bruit, No Mass, Tender (Primarily in the left lower quadrant, but also a somewhat in the right lower quadrant. Nontender elsewhere.) Back Exam: Normal Inspection, Full Range of Motion, NT Extremities: Normal Inspection, Normal Range of Motion, Normal Capillary Refill Neurological: Alert, Oriented, Normal Cognition, No Motor/Sensory Deficits Psychiatric: Normal Affect Skin Exam: Warm, Dry, Intact, Normal Color, No Rash, Ecchymosis (few, to bilateral upper extremities) #1 Interpretation EKG Date: 09/06/20 Time: 19:59 Rhythm: A-Fib Rate (Beats/Min): 101 [place]: Normal P-Wave: Absent QRS: Normal ST-T: Normal QT: Prolonged (QTc 461 ms) Course - Vital Signs Last Recorded V/S: Last Vital Signs Temp 36.9 C 09/06/20 18:35 Pulse 90 09/06/20 22:48 Resp 20 09/06/20 22:48 BP 134/91 H 09/06/20 22:48 Pulse Ox 92 L 09/06/20 22:48 Orthostatic Blood Pressure [ 150/106 Standing] Orthostatic Blood Pressure [ 149/85 Supine] - Orders/Labs/Meds Orders: Active Orders 24 hr Category Date Time Status EKG Documentation Completion [RC] STAT Care 09/06/20 19:35 Active Orthostatic Vital Signs [RC] STAT Care 09/06/20 19:32 Active Orthostatic Vital Signs [RC] STAT Care 09/06/20 20:57 Active Chest Abdomen Pelvis w Cont [CT] Stat Exams 09/06/20 19:34 Taken Labs: Laboratory Tests 10/17/20 10/17/20 10/17/20 Range/Units 19:40 20:01 20:01 WBC 14.83 H (4.23-9.07) K/mm3 RBC 3.51 L (4.63-6.08) M/mm3 Hgb 10.7 L (13.7-17.5) gm/dl Hct 34.4 L (40.1-51.0) % MCV 98.0 H (79.0-92.2) fl MCH 30.5 (25.7-32.2) pg MCHC 31.1 L (32.2-35.5) g/dl RDW Std Deviation 49.7 H (35.1-43.9) fL Plt Count 181 (163-337) K/mm3 MPV 10.9 (9.4-12.3) fl Neutrophils % (Manual) 82 H (40-60) % Band Neutrophils % 0 (0-10) % Lymphocytes % (Manual) 8 L (20-40) % Atypical Lymphs % 0 % Monocytes % (Manual) 10 (2-10) % Eosinophils % (Manual) 0 L (0.8-7.0) % Basophils % (Manual) 0 L (0.2-1.2) Platelet Estimate Adequate Polychromasia Few Anisocytosis 1+ slight Macrocytosis 1+ slight RBC Morph Comment Not Reportable Sodium 135 L (136-145) mEq/L Potassium 5.4 H (3.5-5.1) mEq/L Chloride 100 (98-107) mEq/L Carbon Dioxide 26 (21-32) mEq/L Anion Gap 14.4 (5-15) BUN 50 H (7-18) mg/dL Creatinine 2.3 H (0.7-1.3) mg/dL Est Cr Clr Drug Dosing 34.38 mL/min Estimated GFR (MDRD) 29 (>60) mL/min BUN/Creatinine Ratio 21.7 H (14-18) Glucose 433 H (80-115) mg/dL Lactic Acid (0.4-2.0) mmol/L Calcium 8.5 (8.5-10.1) mg/dL Magnesium 2.3 (1.8-2.4) mg/dl Total Bilirubin 0.5 (0.2-1.0) mg/dL AST 18 (15-37) U/L ALT 56 (16-63) U/L Alkaline Phosphatase 90 (46-116) U/L Troponin I 0.052 (0.00-0.056) ng/mL Total Protein 6.4 (6.4-8.2) g/dl Albumin 2.1 L (3.4-5.0) g/dl Globulin 4.3 gm/dL Albumin/Globulin Ratio 0.5 L (1-2) Urine Color Yellow (Yellow) Urine Appearance Clear (Clear) Urine pH 7.5 (5.0-8.0) Ur Specific [place] 1.020 (1.005-1.030) Urine Protein 3+ H (Negative) Urine Glucose (UA) 2+ H (Negative) Urine Ketones Negative (Negative) Urine Occult Blood Trace-lysed H (Negative) Urine Nitrite Negative (Negative) Urine Bilirubin Negative (Negative) Urine Urobilinogen 0.2 (0.2-1.0) Ur Leukocyte Esterase Negative (Negative) Urine RBC 5-10 H (0-5) /hpf Urine WBC 0-5 (0-5) /hpf Ur Squamous Epith Cells 0-5 (0-5) /hpf Urine Bacteria Few (FEW) /hpf Urine Mucus Few (FEW) /hpf 09/06/20 09/06/20 Range/Units 20:01 22:15 WBC (4.23-9.07) K/mm3 RBC (4.63-6.08) M/mm3 Hgb (13.7-17.5) gm/dl Hct (40.1-51.0) % MCV (79.0-92.2) fl MCH (25.7-32.2) pg MCHC (32.2-35.5) g/dl RDW Std Deviation (35.1-43.9) fL Plt Count (163-337) K/mm3 MPV (9.4-12.3) fl Neutrophils % (Manual) (40-60) % Band Neutrophils % (0-10) % Lymphocytes % (Manual) (20-40) % Atypical Lymphs % % Monocytes % (Manual) (2-10) % Eosinophils % (Manual) (0.8-7.0) % Basophils % (Manual) (0.2-1.2) Platelet Estimate Polychromasia Anisocytosis Macrocytosis RBC Morph Comment Sodium (136-145) mEq/L Potassium (3.5-5.1) mEq/L Chloride (98-107) mEq/L Carbon Dioxide (21-32) mEq/L Anion Gap (5-15) BUN (7-18) mg/dL Creatinine (0.7-1.3) mg/dL Est Cr Clr Drug Dosing mL/min Estimated GFR (MDRD) (>60) mL/min BUN/Creatinine Ratio (14-18) Glucose (80-115) mg/dL Lactic Acid 1.3 (0.4-2.0) mmol/L Calcium (8.5-10.1) mg/dL Magnesium (1.8-2.4) mg/dl Total Bilirubin (0.2-1.0) mg/dL AST (15-37) U/L ALT (16-63) U/L Alkaline Phosphatase (46-116) U/L Troponin I 0.043 (0.00-0.056) ng/mL Total Protein (6.4-8.2) g/dl Albumin (3.4-5.0) g/dl Globulin gm/dL Albumin/Globulin Ratio (1-2) Urine Color (Yellow) Urine Appearance (Clear) Urine pH (5.0-8.0) Ur Specific [place] (1.005-1.030) Urine Protein (Negative) Urine Glucose (UA) (Negative) Urine Ketones (Negative) Urine Occult Blood (Negative) Urine Nitrite (Negative) Urine Bilirubin (Negative) Urine Urobilinogen (0.2-1.0) Ur Leukocyte Esterase (Negative) Urine RBC (0-5) /hpf Urine WBC (0-5) /hpf Ur Squamous Epith Cells (0-5) /hpf Urine Bacteria (FEW) /hpf Urine Mucus (FEW) /hpf Meds: Medications Discontinued Medications Generic Name Dose Route Start Last Admin Trade Name Freq PRN Reason Stop Dose Admin Hydromorphone HCl 0.5 mg 09/06/20 19:56 09/06/20 20:04 Dilaudid IVPUSH 09/06/20 19:57 0.5 mg ONETIME ONE Administration Sodium Chloride 500 mls @ 1,000 mls/hr 09/06/20 20:56 09/06/20 21:13 Normal Saline IV 09/06/20 21:25 1,000 mls/hr .BOLUS ONE Administration Ondansetron HCl 4 mg 09/06/20 19:56 09/06/20 20:05 Zofran IVPUSH 09/06/20 19:57 4 mg ONETIME ONE Administration - Re-Assessments/Exams Free Text/Narrative Re-Assessment/Exam: 09/06/20 19:43 As above, the patient was seen in this ED on 08/20/2020, diagnosed with COVID-19, and admitted to this hospital through 08/23/20, being treated with convalescent plasma and dexamethasone, although not remdesivir, due to his renal insufficiency. He then returned to this ED the following day, 08/24/2020, and was readmitted through 08/29/2020. He then returned to this ED the following day, 08/30/2020, and was transferred to the [facility], where he remained until 09/02/2020. He now returns to this ED with a complaint of dyspnea, even at rest, epistaxis or bloody mucus when he blows his nose, blood clots when he coughs, slight nausea, and chills with no known fever, all coming and going for the past 2 weeks. He also reports developing intermittent stabbing left chest pain tonight. He reports constipation and urinary frequency, although no dysuria. He reports blood glucoses in the mid 500s to 600s for the past 2 weeks. On examination, the patient's heart rate is irregularly irregular. His lungs sound congested when he is supine, although they are relatively clear when he is upright. He is tender in his left lower quadrant, and it is notable that the patient has a history of diverticulitis. He has bruises on his upper extremities. The remainder of his physical exam is grossly unremarkable. I have ordered a work-up that includes orthostatics, an ECG, blood work, a urinalysis by clean-catch, and a CT of his chest, abdomen, and pelvis with oral and IV contrast, to not only evaluate his lungs for hemorrhage, but to evaluate his abdomen for diverticulitis. It should be noted that the patient is on Eliquis for atrial fibrillation, therefore I have not ordered a D-dimer or coags. The patient is requesting water, but I would prefer to determine his volume status before giving him fluid. 09/06/20 20:57 The patient is orthostatic. Because of his history of CHF, I have ordered a 500 mL bolus of NS, after which we will recheck orthostatics. 09/06/20 21:30 The patient's CBC is remarkable for a WBC count elevated at 14.83, but with 0% bandemia. His H/H is slightly depressed at 10.7/34.4, with the remainder of his CBC being unremarkable. His CMP is remarkable for a sodium at the lower limit of normal of 135, potassium mildly elevated at 5.4, a BUN/Cr elevated at 50/2.3, and a blood glucose elevated at 433, with the remainder of his CMP being unremarkable. His magnesium level is within normal limits at 2.3. His lactic acid level is within normal limits at 1.3. His troponin is within normal limits at 0.052. His urinalysis is remarkable for 2+ glucose and trace occult blood with 5-10 RBCs, with the remainder of his urinalysis being unremarkable. The patient's potassium was 5.4 on 08/30/2020. His BUN/Cr was 58/2.5 on 08/30/2020. Based on the above, I have ordered a repeat troponin to be obtained at 22:00 09/06/20 22:41 CT of the chest with IV contrast is read by [facility] as: Diffuse scattered ground-glass opacities with reticular interstitial markings at the periphery of the lungs. Findings are consistent with infectious pneumonia, which could be due to COVID-19. In comparison with the chest x-ray from 08/30/2020, the lungs appear better aerated today. CT of the abdomen and pelvis with oral and IV contrast is read by [facility] as: 1. No acute inflammatory process is identified in the abdomen or pelvis. There is no evidence of bowel obstruction or free air. 2. Diverticulosis without evidence of acute diverticulitis. 3. Seed implants in the prostate gland. 4. Soft tissue swelling in the anterior abdominal wall surrounding the umbilicus. Cellulitis should be ruled out clinically. The repeat troponin has not yet resulted. 09/06/20 23:00 The patient's repeat troponin is down to 0.043. 09/06/20 23:03 Following a 500 mL bolus of NS, the patient is no longer orthostatic. 09/06/20 23:44 Test results discussed with the patient. As above, he was initially orthostatic, which resolved after a small bolus of IV fluid. With respect to his complaint of epistaxis and hemoptysis, this appears to be due to his Eliquis. He tells me that he is taking 2 tablets of Eliquis per day. He does not know the dosage, but our records indicate that it is 5 mg BID, which, if correct, is an incorrect dose, given his renal insufficiency. For patients with a creatinine of 1.5 or greater, the correct dosage is 2.5 mg BID for the treatment of atrial fibrillation. He will need to follow-up with his prescribing provider for clarification. With respect to the patient's hyperglycemia, the patient agrees that this is likely due to the steroids that he is either currently on or recently was on. He does not know if he is still on steroids. He will need to be aggressive with his blood glucose management, and I would like him to follow-up with his PCP in this regard. With respect to his chest discomfort, dyspnea, nonproductive cough, slight nausea, and chills, these symptoms may be due in part to his CHF, however, they may also be residual symptoms from COVID-19. I explained to the patient that some patients appear to remain symptomatic for weeks or even months following their initial illness. Indeed, it is not known how long patients may remain ill. It is possible that they may be symptomatic permanently. At this time, we simply do not know. Departure - Departure Time of Disposition: 23:53 Disposition: Home, Self-Care 01 Condition: Good Clinical Impression: Chronic renal insufficiency, Epistaxis, Hemoptysis, Chest pain, Nonproductive cough, COVID-19 Dyspnea Qualifiers: Dyspnea type: acute respiratory distress Qualified Code(s): R06.03 - Acute respiratory distress - Discharge Information *PRESCRIPTION DRUG MONITORING PROGRAM REVIEWED*: Not Applicable *COPY OF PRESCRIPTION DRUG MONITORING REPORT IN PATIENT [place]: Not Applicable Referrals: Mell Flood MD [Primary Care Provider] - Forms: ED Department Discharge Additional Instructions: You were seen in the emergency room for shortness of breath, a bloody nose, blood clots when you cough, slight nausea, and chills, all coming and going for the past 2 weeks, along with intermittent stabbing left chest pain today, the feeling of constipation, the feeling of the need to urinate often, and for high blood sugar. Work-up in the ER included positional blood pressure checks, blood work, a urinalysis, a CT of your chest, abdomen, and pelvis with oral and IV contrast, and an ECG. None of your findings indicated the need for hospitalization, therefore you have been discharged home. Your blood pressure dropped excessively between lying and standing, a condition known as orthostasis. You were given 500 mL of IV fluid, and your blood pressure normalized. Your blood work found your potassium to be mildly elevated at 5.4, your kidney function to be abnormal, although slightly improved from 08/30/2020, and your blood sugar to be significantly elevated at 433. The CT scan of your chest found the characteristic abnormalities in your lungs consistent with COVID-19, although slightly improved from a previous chest x- ray. No significant abnormality was found in your abdomen. With respect to your nosebleeds and coughing up blood, it is likely due to the Eliquis that you are on. Given your kidney dysfunction, you are supposed to be on 2.5 mg twice a day, not 5 mg twice a day. Please follow-up with your prescribing provider to clarify that you are on the correct dose. With respect to your high blood sugar, it is likely due to the steroids that you either were on or are still on. Please follow-up with your PCP, Dr. Mell Flood, to get this under control. With respect to your chest pain, shortness of breath, dry cough, nausea, and chills, some of these symptoms may be due in part to your congestive heart failure, however, they may be residual symptoms from COVID-19. Unfortunately, some patients continue to have symptoms for months after their illness, and we do not know how long you may continue to be symptomatic. Again, please follow- up with Dr. Flood in this regard. If any other problems, please do not hesitate to return to the ER. Sepsis Event Note (ED) - Evaluation Sepsis Screening Result: No Definite Risk - Focused Exam Vital Signs: Vital Signs Temp Pulse Resp BP Pulse Ox 09/06/20 22:48 90 20 134/91 H 92 L 09/06/20 18:35 36.9 C 96 20 171/89 H 96 - My Orders Last 24 Hours: My Active Orders 09/06/20 19:32 Orthostatic Vital Signs [RC] STAT 09/06/20 19:34 Chest Abdomen Pelvis w Cont [CT] Stat 09/06/20 19:35 EKG Documentation Completion [RC] STAT 09/06/20 20:57 Orthostatic Vital Signs [RC] STAT - Assessment/Plan Last 24 Hours: My Active Orders 09/06/20 19:32 Orthostatic Vital Signs [RC] STAT 09/06/20 19:34 Chest Abdomen Pelvis w Cont [CT] Stat 09/06/20 19:35 EKG Documentation Completion [RC] STAT 09/06/20 20:57 Orthostatic Vital Signs [RC] STAT
[2020-09-06] MEDS ORDERED: HYDROmorphone 0.5 MG/0.5 ML Syringe IVPUSH ONE (19:56)
[2020-09-06] MEDS ORDERED: Ondansetron 4 MG/2 ML SDV IVPUSH ONE (19:56)
[2020-09-06] MEDS ORDERED: Sodium Chloride 0.9% 500 ML IV ONE (20:56)
== END 2020-09-07 00:21 | disposition home or self-care (01) ==
LOC: JD.ED 17:32
DX: U07.1 COVID-19 (principal); R04.0 Epistaxis; R04.2 Hemoptysis; I13.0 Hypertensive heart and chronic kidney disease with heart failure and stage 1 through stage 4 chronic kidney disease, or unspecified chronic kidney disease; I50.9 Heart failure, unspecified; N18.9 Chronic kidney disease, unspecified; R07.9 Chest pain, unspecified; I48.91 Unspecified atrial fibrillation; J44.9 Chronic obstructive pulmonary disease, unspecified; E11.21 Type 2 diabetes mellitus with diabetic nephropathy; M19.90 Unspecified osteoarthritis, unspecified site; F41.9 Anxiety disorder, unspecified; F32.9 Major depressive disorder, single episode, unspecified; E11.22 Type 2 diabetes mellitus with diabetic chronic kidney disease; E78.00 Pure hypercholesterolemia, unspecified; K21.9 Gastro-esophageal reflux disease without esophagitis; E05.90 Thyrotoxicosis, unspecified without thyrotoxic crisis or storm; E66.9 Obesity, unspecified; Z68.33 Body mass index [BMI] 33.0-33.9, adult; Z79.4 Long term (current) use of insulin; Z79.899 Other long term (current) drug therapy; Z87.891 Personal history of nicotine dependence; Z79.01 Long term (current) use of anticoagulants
CPT/HCPCS: 36415; 71260; 74177; 80053; 81001; 83605; 83735; 84484; 85007; 85027; 93005; 96374; 96375; 99285; J1170; J2405; J7030; 93010; 99284

== ENCOUNTER 2020-11-18 15:49 | Emergency (ER) | payer OTHER ==
[2020-11-18] MEDS ORDERED: Furosemide 40 MG/4 ML VIAL IVPUSH ONE (16:44)
[2020-11-18] MEDS ORDERED: Sodium Chloride 0.9% 10 ML Syringe FLUSH PRN (16:44)
--- NOTE | 2020-11-18 16:55 | EDM.PDOC ---
ED HPI GENERAL MEDICAL PROBLEM - General Chief Complaint: Respiratory Problem Stated Complaint: SOB/STOMACH PAIN-SWOLLEN Time Seen by Provider: 11/18/20 16:33 Source of Information: Reports: Patient History Limitations: Reports: Respiratory Distress - History of Present Illness INITIAL COMMENTS - FREE TEXT/NARRATIVE: 65-year-old male presents to the ED due to diffuse abdominal discomfort particularly along his lateral costal margins bilaterally. Associated dyspnea and orthopnea gradually worsening over the last 10 days. History suggest the patient has severe congestive heart failure. Is unclear if this is ischemic or other cause of cardiomyopathy. He reports that he was doing pretty well since he left the hospital but his medicines were changed recently at the [facility] with a reduction of his diuretics to one half of what he was on when he left the hospital. He states over the last 10 to 12 days he is accumulated large amount of fluid in his lower extremities his abdomen and now difficulties breathing. He has had to sit up to sleep in an easy chair. Mild nonproductive cough. He did have Covid illness I believe in August of this year and was admitted to the hospital twice. And was admitted in the summer months as well with exacerbation of congestive heart failure. Last echocardiogram was done on August 29 when he was admitted to the hospital. Revealed left ventricular ejection fraction by visual estimation to be around 55%. Relief ported to be a technically difficult study with suboptimal image quality due to the patient's size. It was felt that he had normal regional wall motion. It was felt that he had normal right ventricular systolic function. There was mild aortic valve sclerosis without stenosis. No evidence of mitral valve regurgitation. No tricuspid valve regurgitation. The right ventricular systolic pressure was unable to be determined. Patient has a history of chronic atrial fibrillation. Patient is a type II diabetic and uses insulin and other meds for blood sugar control. He is not really good at monitoring his blood sugars. He reports decreased ability to urinate. States bowel function has been sluggish with some degree of constipation. Onset: Gradual Onset Date: 11/07/20 Duration: Day(s):, Constant, Getting Worse Location: Reports: Chest, Abdomen (As of breath. Diffuse abdominal pain particularly lateral costal margins bilaterally worsened by laughing sneezing or coughing and by deep inspiration. Patient states there is no room for food and is barely able to eat before he is feeling satiated.), Lower Extremity, Left (Severe swelling), Lower Extremity, Right (Severe swelling both lower extremit ies.) Quality: Reports: Ache, Throbbing (Throbbing aching pain in both lower extremities.) Severity: Severe Improves with: Reports: None Worsens with: Reports: Other (Symptoms worsen with walking. Patient finds he has to stop talking after about 20 seconds to catch his breath before he can continue to talk. Severe orthopnea has been sleeping in an easy chair for the last 10 days) Context: Reports: Other. Denies: Activity (.), Exercise, Lifting, Sick Contact, Trauma Associated Symptoms: Reports: Cough (Striae of severe congestive heart failure), Loss of Appetite, Malaise, Shortness of Breath, Weakness. Denies: No Other Symptoms, Confusion, Chest Pain, cough w sputum ( nonproductive cough.), Diaphoresis, Fever/Chills, Headaches, Nausea/Vomiting (Dear), Rash, Seizure, Syncope Treatments SEROLOGIST: Reports: Other (see below) (He reports last time he was at the [facility] that his diuretic medication was cut in half. He is to be taking Lasix twice daily and now is down to once daily and has resulted in fluid reaccumulation.) Abdomen Pain Score (Numeric/FACES): 9 - Related Data Allergies Allergy/AdvReac Type Severity Reaction Status Date / Time Penicillins Allergy Mild Hives Verified 11/18/20 16:01 Sulfa (Sulfonamide Allergy Mild Hives Verified 11/18/20 16:01 Antibiotics) Home Meds: Home Meds Losartan [Cozaar] 100 mg PO DAILY tablet 05/23/19 [Rx] Dulaglutide [Trulicity] 1.5 mg SQ SA 06/26/19 [History] Apixaban [Eliquis] 5 mg PO BID 11/27/19 [History] Diclofenac Sodium [Voltaren 1% Gel] 4 gram TOP QID PRN 11/27/19 [History] Multivitamin [Daily Multiple Vitamin] 1 tab PO DAILY 11/27/19 [History] Sodium Bicarbonate 650 mg PO BID 11/27/19 [History] Albuterol Sulfate [Proventil Hfa] 2 puff INH Q4H PRN 02/07/20 [History] Alogliptin Benzoate [Alogliptin] 25 mg PO DAILY 02/07/20 [History] Mirtazapine 45 mg PO BEDTIME 02/07/20 [History] Rosuvastatin Calcium 20 mg PO BEDTIME 02/07/20 [History] methIMAzole [Tapazole] 5 mg PO DAILY 02/07/20 [History] Famotidine [Pepcid] 20 mg PO BID #60 tablet 08/23/20 [Rx] Nicotine [Habitrol] 21 mg TRDERM DAILY patch 08/23/20 [Rx] carvediloL [Coreg] 25 mg PO BID #120 tablet 08/23/20 [Rx] Insulin Lispro [HumaLOG] 0 unit SUBCUT QIDACANDBED vial 08/29/20 [Rx] Insulin Glarg,Human.Rec.Analog [Lantus] 48 unit SUBCUT BEDTIME 11/18/20 [History] Lactulose 20 gm PO ASDIRECTED #600 ml 11/18/20 [Rx] oxyCODONE HCl/Acetaminophen [Percocet 5-325 mg Tablet] 1 each PO Q4H PRN #24 tablet 11/18/20 [Rx] Past Medical History HEENT History: Reports: Glaucoma, Hard of Hearing, Impaired Vision Other HEENT History: wears eyeglasses for driving only Cardiovascular History: Reports: Afib, CAD, Heart Failure, High Cholesterol, Hypertension, SOB on Exertion Respiratory History: Reports: COPD, Sleep Apnea Other Respiratory History: hypoxemic respiratory failure Gastrointestinal History: Reports: Diverticulosis, GERD Genitourinary History: Reports: Chronic Renal Insuffiency, Diabetic Nephropathy Other Genitourinary History: Hx of prostate cancer. CASEWORK SPECIALIST History: Reports: None Musculoskeletal History: Reports: Arthritis Neurological History: Reports: Headaches, Chronic, Migraines Psychiatric History: Reports: Anxiety, Depression Endocrine/Metabolic History: Reports: Diabetes, Type II (Controlled with Lantus 48 units daily. Trulicity 1.5 mg subcutaneously once weekly and alogliptin 25 mg daily.), Hyperthyroidism (Currently on methimazole 5mg once daily. 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 - Past Surgical History HEENT Surgical History: Reports: None Cardiovascular Surgical History: Reports: None Respiratory Surgical History: Reports: None GI Surgical History: Reports: Appendectomy, EGD Male Surgical History: Reports: Other (See Below) Endocrine Surgical History: Reports: None Neurological Surgical History: Reports: None Musculoskeletal Surgical History: Reports: None Other Musculoskeletal Surgeries/Procedures:: left hand surgery Oncologic Surgical History: Reports: Other (See Below) Dermatological Surgical History: Reports: None Social & Family History - Family History Family Medical History: No Pertinent Family History Cardiac: Reports: Heart Failure Respiratory: Reports: Asthma - Tobacco Use Tobacco Use Status *Q: Former Tobacco User Years of Tobacco use: 45 Packs/Tins Daily: 2 Used Tobacco, but Quit: Yes Month/Year Tobacco Last Used: March 2020 - Caffeine Use Caffeine Use: Reports: Coffee, Soda Other Caffeine Use: 2 cups a day - Recreational Drug Use Recreational Drug Use: No - Living Situation & Occupation Living situation: Reports: Occupation: Retired ED ROS GENERAL - Review of Systems Review Of Systems: See Below Constitutional: Reports: Malaise, Weakness, Fatigue, Decreased Appetite (States there is no room for food. Early satiety feels much worse if he tries to eat a full meal.), Weight Gain (He believes between 12 and 15 pounds in the last 10 days). Denies: Fever, Chills HEENT: Reports: Other (Has some visual acuity issues related to blood sugar changes.) Respiratory: Reports: Shortness of Breath, Cough, Hemoptysis (History of hemoptysis when he had COVID-19 illness in August.). Denies: Wheezing, Pleuritic Chest Pain, Sputum, Other Cardiovascular: Reports: Blood Pressure Problem, Dyspnea on Exertion (Chronic dependent edema worse the last 10 to 12 days.), Edema, Orthopnea, Palpitations ( Dyspnea at rest.). Denies: Chest Pain, Claudication (Chronic hypertension), Lightheadedness Endocrine: Reports: Fatigue ( Occasionally where palpitations history of chronic atrial fibrillation), Other (History of type 2 diabetes) GI/Abdominal: Reports: Abdominal Pain (Diffuse abdominal pain mostly at the l ateral costal margins bilaterally felt to be due to distention of the abdomen from ascites and pulling on external oblique muscles in the chest wall. It is made worse by coughing deep breathing,laughing or sneezing.), Constipation, Decreased Appetite, Nausea. Denies: Vomiting : Reports: Frequency, Other (Patient reports urine production seems to be down as of late.) Musculoskeletal: Reports: Back Pain, Joint Pain (Neck low back pain chronic pain knees hips neck and shoulders.) Skin: Reports: Bruising (Is is easily due to being on Eliquis.) Neurological: Reports: Difficulty Walking (Due to edema lower extremities and some degree of peripheral neuropathy both feet.), Weakness. Denies: Confusion, Dizziness, Headache, Numbness, Syncope, Tingling Psychiatric: Reports: No Symptoms Hematologic/Lymphatic: Reports: No Symptoms Immunologic: Reports: No Symptoms ED EXAM, GENERAL - Physical Exam Exam: See Below Exam Limited By: Other General Appearance: Moderate Distress (Has to stop speaking about every 20 seconds to get his breath before he continued continue talking.), Other (Temperature is 36.1 with a heart rate of 60 and atrial fibrillation on the monitor. Respiratory is 24 to 28/min with O2 sats of 96 to 97% room air. BP elevated 161/82.) Eye Exam: Bilateral Eye: Normal Inspection (Mild blepharal pallor. No scleral icterus.), PERRL Throat/Mouth: Other Head: Atraumatic, Normocephalic (Tongue is mildly dry. No oropharyngeal infection.) Neck: Normal Inspection, Supple, Limited Range of Motion (Crepitus on lateral rotation. Loss of 5 degrees flexion 5 degrees extension and 10 degrees lateral flexion). No: Carotid Bruit, Lymphadenopathy (L), Lymphadenopathy (R) Respiratory/Chest: Respiratory Distress (Tachypnea at rest), Decreased Breath Sounds (Decreased air entry to both lower lung [place] with rales in both bases. Some dullness to percussion left base suggestive of pleural effusion.), Rales, Wheezing (Very minimal expiratory wheezing on forced expiration.). No: Lungs Clear, Normal Breath Sounds Cardiovascular: No Murmur, No Rub, Irregularly Irregular (Patient is in atrial fibrillation clinically in the 60s.). No: Normal Peripheral Pulses, Regular Rate, Rhythm, No Gallop Peripheral Pulses: 1+: Posterior Tibial (L) (Pulses in his feet are barely palpable due to dependent edema both lower extremities.), Posterior Tibial (R), Dorsalis Pedis (L), Dorsalis Pedis (R), 2+: Carotid (L), Carotid (R) GI/Abdominal: Distended (The abdomen is severely distended and dull to percussion compatible with ascites. Very tender on compression of the lateral rib cage bilaterally pain worsened by deep breathing or coughing. Appears to have a severe strain on the external oblique muscles due to abdominal distention. He has diastases recti superior mid abdomen that is very tender to touch. No evidence of incarceration evident.), Abnormal Bowel Sounds (Bowel sounds are decreased from the norm.), Other (Ascites and large abdominal girth limits ability to palpate any solid organs.). No: Normal Bowel Sounds Back Exam: Decreased Range of Motion. No: CVA Tenderness (L), CVA Tenderness (R) Extremities: Pedal Edema (Less pitting edema both lower extremities up past the knees. Both lower extremities are cool to touch. No venous basis dermatitis evident.) Neurological: Alert, Oriented, CN II-XII Intact, Normal Cognition, Sensory/Motor Deficit (Clinically has peripheral neuropathy both lower extremities in the distribution of socks.) Psychiatric: Normal Affect, Normal Mood Skin Exam: Warm, Dry, Intact, Normal Color, No Rash #1 Interpretation EKG Date: 11/18/20 Time: 16:16 Rhythm: A-Fib (With rate of 40 to 85 bpm) Rate (Beats/Min): 61 [place]: Normal P-Wave: Variable QRS: Other (Q-wave in lead V1 only. There is early R wave lead database administrator V2 V3 suggestive of right ventricular hypertrophy versus septal hypertrophy pattern.) ST-T: Other (T wave flattening in leads V6, aVL, aVF which are nonspecific but may represent electrolyte imbalance.) QT: Prolonged (QTC is mildly prolonged.) EKG Interpretation Comments: Abnormal ECG Course - Vital Signs Last Recorded V/S: Last Vital Signs Temp 36.4 C 11/18/20 18:27 Pulse 80 11/18/20 18:27 Resp 18 11/18/20 18:27 BP 169/98 H 11/18/20 18:27 Pulse Ox 94 L 11/18/20 18:27 - Orders/Labs/Meds Orders: Active Orders 24 hr Category Date Time Status Peripheral IV Care [RC] . DIRECTED Care 11/18/20 16:44 Active Chest Abdomen Pelvis wo Cont [CT] Stat Exams 11/18/20 17:05 Taken URINALYSIS W/MICROSCOPIC [UA W/MICROSCOPIC] [URIN] Stat Lab 11/18/20 17:50 Results Sodium Chloride 0.9% [Saline Flush] Med 11/18/20 16:44 Active 10 ml FLUSH ASDIRECTED PRN Peripheral IV Insertion Adult [OM.PC] Stat Oth 11/18/20 16:44 Ordered Medication Orders Sodium Chloride (Saline Flush) 10 ml FLUSH ASDIRECTED PRN PRN Reason: Keep Vein Open Last Admin: 11/18/20 17:01 Dose: 10 ml Documented by: LETICIA Labs: Laboratory Tests 11/18/20 11/18/20 11/18/20 Range/Units 17:00 17:00 17:00 WBC 12.03 H (4.23-9.07) K/mm3 RBC 4.24 L (4.63-6.08) M/mm3 Hgb 12.2 L D (13.7-17.5) gm/dl Hct 39.1 L (40.1-51.0) % MCV 92.2 D (79.0-92.2) fl MCH 28.8 (25.7-32.2) pg MCHC 31.2 L (32.2-35.5) g/dl RDW Std Deviation 52.0 H (35.1-43.9) fL Plt Count 194 (163-337) K/mm3 MPV 11.0 (9.4-12.3) fl Neut % (Auto) 71.1 H (34.0-67.9) % Lymph % (Auto) 16.0 L (21.8-53.1) % [place] % (Auto) 10.5 (5.3-12.2) % Eos % (Auto) 1.7 (0.8-7.0) Baso % (Auto) 0.3 (0.1-1.2) % Neut # (Auto) 8.55 H (1.78-5.38) K/mm3 Lymph # (Auto) 1.92 (1.32-3.57) K/mm3 [place] # (Auto) 1.26 H (0.30-0.82) K/mm3 Eos # (Auto) 0.21 (0.04-0.54) K/mm3 Baso # (Auto) 0.04 (0.01-0.08) K/mm3 Manual Slide Review Normal smear PT 10.3 (9.7-12.0) SECONDS INR 0.96 APTT 29.9 (21.7-31.4) SECONDS Sodium 142 (136-145) mEq/L Potassium 4.3 (3.5-5.1) mEq/L Chloride 106 (98-107) mEq/L Carbon Dioxide 28 (21-32) mEq/L Anion Gap 12.3 (5-15) BUN 27 H (7-18) mg/dL Creatinine 2.6 H (0.7-1.3) mg/dL Est Cr Clr Drug Dosing 30.03 mL/min Estimated GFR (MDRD) 25 (>60) mL/min BUN/Creatinine Ratio 10.4 L (14-18) Glucose 219 H (80-115) mg/dL Hemoglobin A1c (4.50-6.20) % Calcium 9.0 (8.5-10.1) mg/dL Magnesium 2.4 (1.8-2.4) mg/dl Total Bilirubin 0.3 (0.2-1.0) mg/dL AST 19 (15-37) U/L ALT 28 (16-63) U/L Alkaline Phosphatase 105 (46-116) U/L CK-MB (CK-2) 2.2 (0-3.6) ng/ml Troponin I 0.025 (0.00-0.056) ng/mL C-Reactive Protein 0.2 (<1.0) mg/dL NT-Pro-B Natriuret Pep (0-125) pg/mL Total Protein 7.3 (6.4-8.2) g/dl Albumin 3.4 (3.4-5.0) g/dl Globulin 3.9 gm/dL Albumin/Globulin Ratio 0.9 L (1-2) Prostate Specific Ag (0.1-4.0) ng/mL Free T4 (0.76-1.46) ng/dL TSH 3rd Generation (0.358-3.74) uIU/mL Urine Color (Yellow) Urine Appearance (Clear) Urine pH (5.0-8.0) Ur Specific [place] (1.005-1.030) Urine Protein (Negative) Urine Glucose (UA) (Negative) Urine Ketones (Negative) Urine Occult Blood (Negative) Urine Nitrite (Negative) Urine Bilirubin (Negative) Urine Urobilinogen (0.2-1.0) Ur Leukocyte Esterase (Negative) 11/18/20 11/18/20 11/18/20 Range/Units 17:00 17:00 17:00 WBC (4.23-9.07) K/mm3 RBC (4.63-6.08) M/mm3 Hgb (13.7-17.5) gm/dl Hct (40.1-51.0) % MCV (79.0-92.2) fl MCH (25.7-32.2) pg MCHC (32.2-35.5) g/dl RDW Std Deviation (35.1-43.9) fL Plt Count (163-337) K/mm3 MPV (9.4-12.3) fl Neut % (Auto) (34.0-67.9) % Lymph % (Auto) (21.8-53.1) % [place] % (Auto) (5.3-12.2) % Eos % (Auto) (0.8-7.0) Baso % (Auto) (0.1-1.2) % Neut # (Auto) (1.78-5.38) K/mm3 Lymph # (Auto) (1.32-3.57) K/mm3 [place] # (Auto) (0.30-0.82) K/mm3 Eos # (Auto) (0.04-0.54) K/mm3 Baso # (Auto) (0.01-0.08) K/mm3 Manual Slide Review PT (9.7-12.0) SECONDS INR APTT (21.7-31.4) SECONDS Sodium (136-145) mEq/L Potassium (3.5-5.1) mEq/L Chloride (98-107) mEq/L Carbon Dioxide (21-32) mEq/L Anion Gap (5-15) BUN (7-18) mg/dL Creatinine (0.7-1.3) mg/dL Est Cr Clr Drug Dosing mL/min Estimated GFR (MDRD) (>60) mL/min BUN/Creatinine Ratio (14-18) Glucose (80-115) mg/dL Hemoglobin A1c 8.20 H (4.50-6.20) % Calcium (8.5-10.1) mg/dL Magnesium (1.8-2.4) mg/dl Total Bilirubin (0.2-1.0) mg/dL AST (15-37) U/L ALT (16-63) U/L Alkaline Phosphatase (46-116) U/L CK-MB (CK-2) (0-3.6) ng/ml Troponin I (0.00-0.056) ng/mL C-Reactive Protein (<1.0) mg/dL NT-Pro-B Natriuret Pep 1656 H (0-125) pg/mL Total Protein (6.4-8.2) g/dl Albumin (3.4-5.0) g/dl Globulin gm/dL Albumin/Globulin Ratio (1-2) Prostate Specific Ag (0.1-4.0) ng/mL Free T4 0.94 (0.76-1.46) ng/dL TSH 3rd Generation 4.720 H (0.358-3.74) uIU/mL Urine Color (Yellow) Urine Appearance (Clear) Urine pH (5.0-8.0) Ur Specific [place] (1.005-1.030) Urine Protein (Negative) Urine Glucose (UA) (Negative) Urine Ketones (Negative) Urine Occult Blood (Negative) Urine Nitrite (Negative) Urine Bilirubin (Negative) Urine Urobilinogen (0.2-1.0) Ur Leukocyte Esterase (Negative) 11/18/20 11/18/20 Range/Units 17:00 17:50 WBC (4.23-9.07) K/mm3 RBC (4.63-6.08) M/mm3 Hgb (13.7-17.5) gm/dl Hct (40.1-51.0) % MCV (79.0-92.2) fl MCH (25.7-32.2) pg MCHC (32.2-35.5) g/dl RDW Std Deviation (35.1-43.9) fL Plt Count (163-337) K/mm3 MPV (9.4-12.3) fl Neut % (Auto) (34.0-67.9) % Lymph % (Auto) (21.8-53.1) % [place] % (Auto) (5.3-12.2) % Eos % (Auto) (0.8-7.0) Baso % (Auto) (0.1-1.2) % Neut # (Auto) (1.78-5.38) K/mm3 Lymph # (Auto) (1.32-3.57) K/mm3 [place] # (Auto) (0.30-0.82) K/mm3 Eos # (Auto) (0.04-0.54) K/mm3 Baso # (Auto) (0.01-0.08) K/mm3 Manual Slide Review PT (9.7-12.0) SECONDS INR APTT (21.7-31.4) SECONDS Sodium (136-145) mEq/L Potassium (3.5-5.1) mEq/L Chloride (98-107) mEq/L Carbon Dioxide (21-32) mEq/L Anion Gap (5-15) BUN (7-18) mg/dL Creatinine (0.7-1.3) mg/dL Est Cr Clr Drug Dosing mL/min Estimated GFR (MDRD) (>60) mL/min BUN/Creatinine Ratio (14-18) Glucose (80-115) mg/dL Hemoglobin A1c (4.50-6.20) % Calcium (8.5-10.1) mg/dL Magnesium (1.8-2.4) mg/dl Total Bilirubin (0.2-1.0) mg/dL AST (15-37) U/L ALT (16-63) U/L Alkaline Phosphatase (46-116) U/L CK-MB (CK-2) (0-3.6) ng/ml Troponin I (0.00-0.056) ng/mL C-Reactive Protein (<1.0) mg/dL NT-Pro-B Natriuret Pep (0-125) pg/mL Total Protein (6.4-8.2) g/dl Albumin (3.4-5.0) g/dl Globulin gm/dL Albumin/Globulin Ratio (1-2) Prostate Specific Ag < 0.1 L (0.1-4.0) ng/mL Free T4 (0.76-1.46) ng/dL TSH 3rd Generation (0.358-3.74) uIU/mL Urine Color Yellow (Yellow) Urine Appearance Clear (Clear) Urine pH 6.5 (5.0-8.0) Ur Specific [place] 1.025 (1.005-1.030) Urine Protein 3+ H (Negative) Urine Glucose (UA) Trace H (Negative) Urine Ketones Negative (Negative) Urine Occult Blood Negative (Negative) Urine Nitrite Negative (Negative) Urine Bilirubin Negative (Negative) Urine Urobilinogen 0.2 (0.2-1.0) Ur Leukocyte Esterase Negative (Negative) Meds: Medications Generic Name Dose Route Start Last Admin Trade Name Freq PRN Reason Stop Dose Admin Sodium Chloride 10 ml 11/18/20 16:44 11/18/20 17:01 Saline Flush FLUSH 10 ml ASDIRECTED PRN Administration Keep Vein Open Discontinued Medications Generic Name Dose Route Start Last Admin Trade Name Freq PRN Reason Stop Dose Admin Furosemide 80 mg 11/18/20 16:44 11/18/20 17:03 Lasix IVPUSH 11/18/20 16:45 80 mg NOW ONE Administration Hydromorphone HCl 1 mg 11/18/20 17:00 11/18/20 17:12 Dilaudid IVPUSH 11/18/20 17:01 1 mg ONETIME ONE Administration Hydromorphone HCl 0.5 mg 11/18/20 18:49 11/18/20 19:25 Dilaudid IVPUSH 11/18/20 18:50 0.5 mg ONETIME ONE Administration Lactulose 20 gm 11/18/20 18:49 11/18/20 19:29 Cephulac PO 11/18/20 18:50 20 gm ONETIME ONE Administration Metoclopramide HCl 7.5 mg 11/18/20 16:57 11/18/20 17:10 Reglan IVPUSH 11/18/20 16:58 7.5 mg ONETIME ONE Administration - Radiology Interpretation Free Text/Narrative:: 65-year-old male with known chronic atrial fibrillation and history of severe congestive heart failure presents to the ED due to gradually increasing weight gain and severe distention of his abdomen to the point that he has barely able to get his breath on minimal exertion. He has no room for food. He states severe upper abdominal discomfort if he tries to eat. Patient reports that last time he was to [facility] they reduced his diuretics to from twice daily to once daily and he felt he was doing fine after leaving the hospital on last occasion. Subsequently he has retained a great deal of fluid with at least a 15 pound weight gain over the last 10 days and development of severe distention of his abdomen due to ascites. Associated dyspnea with rales clinically bilaterally and suspect right-sided pleural effusion. Pain coming from his lateral chest wall bilaterally. This is made worse by deep breathing, coughing, laughing due to severe strain on the external oblique muscles due to abdominal distention with ascites fluid. Severe 4+ pitting edema both lower extremities up past the knees. Patient clinically has anasarca. Plan IV to be saline lock. Will be given 80 mg of Lasix IV. Given Dilaudid 0.5 mg IV and Zofran 4 mg IV for abdominal pain relief. At this time he is not hypoxic. O2 sats are 96 to 97% on room air but he is tachypneic at 24 to 28 breaths/min. ECG reveals atrial fibrillation with rate control between 40 and 85 bpm with suspect right ventricular hypertrophy and septal hypertrophy pattern. Routine labs will be collected including BNP and glycosylate protein as he is a type II diabetic controlled with insulin and and Trulicity 1.5 mg once weekly subcutaneously and alogliptin 25 mg daily. Patient will have CT chest abdomen pelvis performed without any contrast to identify severity of pleural effusions on clinical exam and ascites. - Re-Assessments/Exams Free Text/Narrative Re-Assessment/Exam: 11/18/20 17:45 CT of the chest abdomen pelvis showed been performed without any contrast due to renal dysfunction. Patient does have mild cardiomegaly. He does have mild bilateral pleural effusions slightly worse on the left side as compared to the right. He does have a patulous distal esophagus. Liver appears to have some mild fatty infiltration. Spleen is normal in size. Pancreas appears slightly atrophic. Gallbladder appears to have a small amount of fluid surrounding it without any calcified gallstones evident. Bilateral cortical renal atrophy without any renal lithiasis and no obstruction of the ureters bilaterally. Increased stool throughout the entire colon. Particularly noted on the right hemicolon and transverse colon. No free fluid in the pelvis. Evidence of cesium seed implants in his prostate for treatment of prostatic cancer. He has no ascitic fluid in his abdomen as I felt was clinically apparent. 11/18/20 18:14 White count is mildly elevated at 12.03. Auto differential shows 71% neutrophils. Hemoglobin is 12.2 slightly low. Hematocrit is 39.1. MCV is 92.2. Platelet count 194,000. PT is 10.3 with an INR of 0.96 and a PTT of 29.9. Sodium 142 with a potassium of 4.3 chloride 106 with bicarb of 28. Anion gap is 12.3. BUN is 27 with a creatinine of 2.6. Estimated GFR is 25 i.e. stage IV renal insufficiency. Glucose elevated at 219. Patient is a type II diabetic. Hemoglobin A1c is 8.20 indicating poor control of diabetes. Calcium is 9.0 with a magnesium of 2.4. Liver function is normal. CK-MB was 2.2 with troponin 0 0.025. C-reactive protein 0.2 BNP is 1656. Total protein 7.3 with an albumin fraction of 3.4 Free T4 is normal at 0.94 with a TSH slightly eleva ehsan at 4.72. 11/18/20 18:19 CT overread now available. They agree with mild bibasilar pleural-parenchymal scarring and there are no suspicious pulmonary nodules or areas of lung consolidation. There is no significant pleural effusion they felt it was scar tissue in both lower lung [place]. No pneumothorax. No mass plaque or calcification there are atherosclerotic calcifications inclusive of the coronary arteries. Heart is normal in size with no pericardial effusion. No aortic aneurysm no enlarged axillary mediastinal hilar lymph nodes. Bone and joints show no suspicious lytic or ostial sclerotic lesions. CT of the pelvis reveals the liver to be normal in architecture without suspicious abnormalities. Gallbladder mild amount of edema along the gallbladder identified. The gallbladder is not hydropic. No calcified stones or wall thickening is apparent. The pancreatic parenchyma is normal in bulk and sharply marginated. Duct is not dilated. Scattered punctate parenchymal calcifications consistent with chronic pancreatitis evident. No masses or abnormal fluid collections. Spleen is normal in size no mass or fluid collection. There are no adrenal masses. Kidneys and ureters normal in parenchymal bulk. No hydronephrosis or asymmetric perinephric stranding there is solid masses no stones. Stomach and bowel show no significant abnormality of the stomach. There are no dilated or thickened small bowel loops. Gas and stool are seen throughout the colon to the rectum. No mass there are multiple colonic diverticula concentrated primarily distally. There is no evidence for appendicitis. There is normal no pneumoperitoneum abscess ascites or mass. There is diffuse atherosclerotic calcification of the aortic iliac tree. There is no abdominal aortic aneurysm. Lymph nodes reveal a left periaortic lymph node 9 x 16 mm has not changed significantly in size from previous CT exams. It is indeterminate in etiology. There are no other enlarged celiac mesenteric periportal extraperitoneal or inguinal lymph nodes. There is no bladder wall thickening. Mass or calculus. Prostate gland is normal in size there are multiple prostate implant seeds. Bones show age-appropriate degenerative changes no acute fractures or dislocations. No suspicious lytic or osteosclerotic lesions. No significant soft tissue masses or hernias noted. 11/18/20 18:51 Urinalysis reveals 3+ proteinuria trace of glucose leukocyte esterase negative. I discussed the findings with the patient. He is feeling somewhat better after Lasix IV feels like he can get a deeper breath. Still having significant bilateral lateral chest wall pain from distention of the abdomen and strain on the external oblique muscles. Did get satisfactory relief with Dilaudid 0.5 mg IV. Patient will be returned to Lasix 40 mg twice daily for the next 6 days and then reduce it to 40 mg in the a.m. and 20 mg in the p.m. His constipation is significant at this time. He will be placed on lactulose 20 g twice daily starting tonight in the ED until bowels are working satisfactorily. Will then advise 17 g of MiraLAX daily to try and prevent constipation. Due to his TSH being mildly elevated suggested that he take his methimazole 5 mg every other day either on days or even days of the month for the next 6 weeks and then have repeat thyroid function studies to see if he remains hyperthyroid and requires methimazole long-term. His hyperthyroidism may have been transient possibly related to COVID-19 illness and/or medications. Departure - Departure Time of Disposition: 18:53 Disposition: Home, Self-Care 01 Condition: Fair Clinical Impression: Abdominal pain in male, Constipation by delayed colonic transit, Dependent edema, Insulin dependent type 2 diabetes mellitus, Chronic renal insufficiency, stage IV (severe), Iatrogenic hypothyroidism Abdominal muscle strain Qualifiers: Encounter type: initial encounter Qualified Code(s): S39.011A - Strain of muscle, fascia and tendon of abdomen, initial encounter Congestive heart failure Qualifiers: Heart failure type: unspecified Heart failure chronicity: acute Qualified Code(s): I50.9 - Heart failure, unspecified - Discharge Information *PRESCRIPTION DRUG MONITORING PROGRAM REVIEWED*: Not Applicable *COPY OF PRESCRIPTION DRUG MONITORING REPORT IN PATIENT [place]: Not Applicable Prescriptions: Lactulose 20 gm PO ASDIRECTED #600 ml oxyCODONE HCl/Acetaminophen [Percocet 5-325 mg Tablet] 1 each PO Q4H PRN #24 tablet PRN Reason: pain relief. Instructions: Heart Failure, Self Care, [id number], Constipation, Adult, [id number], Muscle Strain, [id number], Abdominal Pain, Adult, Pgik-te-Mois, Type 2 Diabetes Mellitus, Self Care, Adult, [id number]-[id number], Chronic Kidney Disease, Adult, [id number]-[id number], Edema, [id number] Referrals: Mell Flood MD [Primary Care Provider] - Forms: ED Department Discharge Additional Instructions: Evaluation in the emergency room today in regards to increasing shortness of breath and significant swelling of your lower extremities history of chronic congestive heart failure and renal insufficiency secondary to diabetes. Significant pain along the lower rib cage bilaterally worsened by coughing deep breathing or laughing is secondary to severe stretch of the abdominal wall mu scles called the external obliques. CT scan of the chest reveals scant amount of fluid in both lower lung [place]. Heart size is fairly normal. The abdomen does not show any significant fluid accumulation. Liver appears normal pancreas is showing some degree of atrophy or shrinkage compatible with diabetes. You do have some separation of the upper abdominal muscles called the rectus abdominis in the midline which causes discomfort as well. The CT does demonstrate significant constipation with the entire colon fairly filled with stool. This is causing a lot of your abdominal distention and pain at this time. In the ED you were treated with 0.5 mg of Dilaudid x2 doses for pain relief in combination with Lasix 80 mg IV which did produce some urine output. You will need to return to Lasix use 40 mg morning and mid afternoon such as 2-3 o'clock for the next 5 days and then reduce it to 40 mg in the morning and 20 mg mid afternoon. Suggest use of lactulose syrup twice daily for the next 5 days to get your bowels working normally. You may cut it down to once daily if you get diarrhea. However I suspect it will take a day or 2 to clean out the bowel. Lactulose after that could be used once daily at bedtime to prevent constipation. I would suggest purchasing MiraLAX powder from the [employer] and taking 17 g or 1 scoop at least once daily and sometimes people need 2 scoops daily to prevent constipation from occurring. May use pain medication Percocet 5/325mg tablet 1-2 tabs every 6hrs as needed for pain relief. Try and use them as few as possible as they too can cause constipation. Lab tests also revealed that your current thyroid gland function has now switched to underactive thyroid activity. Therefore it is my suggestion that you take the methimazole 5 mg tablet every other day either on days or even days of the month for the next 6 weeks when repeat thyroid function should be checked. Sometimes the thyroid gland is overactive for only a short period of time and you will not need this medication anymore. Underactive thyroid gland can cause weight gain and constipation. Sepsis Event Note (ED) - Evaluation Sepsis Screening Result: No Definite Risk - Focused Exam Vital Signs: Vital Signs Temp Pulse Resp BP Pulse Ox 11/18/20 18:27 36.4 C 80 18 169/98 H 94 L 11/18/20 15:55 36.1 C 60 24 H 161/82 H 97 - My Orders Last 24 Hours: My Active Orders 11/18/20 16:44 Peripheral IV Care [RC] . DIRECTED Sodium Chloride 0.9% [Saline Flush] 10 ml FLUSH ASDIRECTED PRN Peripheral IV Insertion Adult [OM.PC] Stat 11/18/20 17:05 Chest Abdomen Pelvis wo Cont [CT] Stat 11/18/20 17:50 URINALYSIS W/MICROSCOPIC [UA W/MICROSCOPIC] [URIN] Stat - Assessment/Plan Last 24 Hours: My Active Orders 11/18/20 16:44 Peripheral IV Care [RC] . DIRECTED Sodium Chloride 0.9% [Saline Flush] 10 ml FLUSH ASDIRECTED PRN Peripheral IV Insertion Adult [OM.PC] Stat 11/18/20 17:05 Chest Abdomen Pelvis wo Cont [CT] Stat 11/18/20 17:50 URINALYSIS W/MICROSCOPIC [UA W/MICROSCOPIC] [URIN] Stat
[2020-11-18] MEDS ORDERED: Metoclopramide 10 MG/2 ML SDV IVPUSH ONE (16:57)
[2020-11-18] MEDS ORDERED: HYDROmorphone 1 MG/ML Syringe IVPUSH ONE (17:00)
[2020-11-18 17:58] LABS: HEMOGLOBIN A1C 8.2 % (4.50-6.20)
[2020-11-18] MEDS ORDERED: Lactulose Soln 10 GM/15 ML 30 ML UD Cup PO ONE (18:49)
[2020-11-18] MEDS ORDERED: HYDROmorphone 0.5 MG/0.5 ML Syringe IVPUSH ONE (18:49)
--- NOTE | 2020-11-19 09:10 | CT ---
CT chest Technique: Multiple axial sections were obtained from above the lung apices inferiorly through the lung bases. Intravenous and oral contrast was not utilized. Reconstructed coronal and sagittal images were reviewed. Comparison: No prior chest CT is available, prior chest x-ray 08/06/20. Findings: Thoracic aorta shows atherosclerotic calcification with no aneurysm. Small mediastinal lymph nodes are seen which are believed to be within normal limits. Coronary artery calcification is noted. No pericardial thickening is identified. Slight pleural thickening is noted within the left lung base which is most likely chronic. Small nodule is noted within the right upper lung measuring 3-4 mm. Smaller nodule is noted inferiorly within the right lower lobe measuring about 2 mm. Very slight parenchymal scarring is seen within the left lung base. Minimal nodule is noted within the superior segment of the left lower lobe measuring about 6 mm. Bone window settings were reviewed which show no acute osseous finding. Impression: 1. Small nodules within the chest which are most likely incidental. 2. Other findings as described above. 3. Nothing acute is suspected. Diagnostic code #2 I agree with preliminary report from [facility], finalized on 11/18/20, 7:[address] abdomen and pelvis Technique: Multiple axial sections were obtained from above the dome of the diaphragm inferiorly through the pubic symphysis. Intravenous and oral contrast was not utilized. Comparison: Prior CT abdomen and pelvis exam of 04/06/19. Findings: Noncontrast appearance of the liver shows no discrete abnormality. Spleen appears within normal limits. Adrenal glands show no nodule. Pancreas shows no discrete abnormality. Kidneys show no abnormal calcifications. No ureteral dilatation or ureteral stone is appreciated. Gallbladder shows equivocal inflammatory change. No shadowing gallstones are noted. Aorta shows atherosclerotic change without aneurysm. Atherosclerotic change continues into the iliac vessels. Several lymph nodes are noted within the retroperitoneum which are abnormal in amount but appeared to be fairly stable from previous exam. No pelvic mass or adenopathy is appreciated. Radiation implant seeds are present within the prostate gland. Diffuse diverticulosis is seen within the descending and sigmoid colon with no inflammatory change. Bone window settings were reviewed which show no acute osseous finding. Impression: 1. Slight retroperitoneal adenopathy which is stable. 2. Diverticulosis without diverticulitis. 3. Equivocal inflammatory change around the gallbladder. If patient has right upper quadrant symptoms, gallbladder ultrasound and biliary HIDA scan could be considered. 4. Other findings believed to be incidental. Diagnostic code #3 I agree with preliminary report from [facility], finalized on 11/18/20, 7:16 PM [facility]
== END 2020-11-18 19:41 | disposition home or self-care (01) ==
LOC: JD.ED 15:49
DX: S39.011A Strain of muscle, fascia and tendon of abdomen, initial encounter (principal); K59.01 Slow transit constipation; E03.2 Hypothyroidism due to medicaments and other exogenous substances; I13.0 Hypertensive heart and chronic kidney disease with heart failure and stage 1 through stage 4 chronic kidney disease, or unspecified chronic kidney disease; E11.22 Type 2 diabetes mellitus with diabetic chronic kidney disease; N18.4 Chronic kidney disease, stage 4 (severe); I50.9 Heart failure, unspecified; R07.81 Pleurodynia; D72.829 Elevated white blood cell count, unspecified; R94.31 Abnormal electrocardiogram [ECG] [EKG]; I25.10 Atherosclerotic heart disease of native coronary artery without angina pectoris; E78.00 Pure hypercholesterolemia, unspecified; I48.91 Unspecified atrial fibrillation; J44.9 Chronic obstructive pulmonary disease, unspecified; K21.9 Gastro-esophageal reflux disease without esophagitis; Z87.891 Personal history of nicotine dependence; Z86.19 Personal history of other infectious and parasitic diseases; Z88.0 Allergy status to penicillin; Z88.2 Allergy status to sulfonamides; Z79.01 Long term (current) use of anticoagulants; Z79.899 Other long term (current) drug therapy; Z79.4 Long term (current) use of insulin; X58.XXXA Exposure to other specified factors, initial encounter
CPT/HCPCS: 36415; 71250; 74176; 80053; 81001; 82553; 83036; 83735; 83880; 84153; 84439; 84443; 84484; 85025; 85610; 85730; 86140; 96374; 96375; 96376; 99285; A9270; J1170; J1940; J2765

== ENCOUNTER 2020-11-22 19:15 | Inpatient (IN) | payer OTHER ==
--- NOTE | 2020-11-22 20:00 | EDM.PDOC ---
ED HPI GENERAL MEDICAL PROBLEM - General Chief Complaint: Cardiovascular Problem Stated Complaint: SOB, CHEST PAIN, SWOLLEN FEET AND ANKLES Time Seen by Provider: 11/22/20 19:35 Source of Information: Reports: Patient History Limitations: Reports: No Limitations - History of Present Illness INITIAL COMMENTS - FREE TEXT/NARRATIVE: Mr. Paige is a pleasant 65-year-old gentleman with numerous chronic medical issues, including paroxysmal atrial fibrillation, diastolic CHF, possible COPD, obstructive sleep apnea, diabetes, and chronic renal insufficiency, diagnosed with COVID-19 on 08/20/2020, who now presents to the ED stating that he has had dyspnea and anterior chest, abdomen, and bilateral lower extremity pain for the past 3 weeks, approximately. He also reports a cough productive of off-white thin white sputum for the past 2 days. No recent fever, nausea, vomiting, constipation, diarrhea, or urinary symptoms. He reports that he has been drinking 2 to 3 quarts of water per day, and that he has gained 10 pounds over the past 2 days. The patient has not seen his PCP over the past few weeks, however, medical records indicate that he was seen in this ED 4 days ago, on 11/18/2020, with a complaint at that time of diffuse abdominal discomfort, particularly along his lateral costal margins bilaterally, along with dyspnea and orthopnea, that had been worsening over the prior 10 days. His initial BP was found to be elevated at 169/98, otherwise, he was hemodynamically stable, afebrile, saturating 94% on room air. Work-up included a CBC, CMP, magnesium level, Hgb A1c level, troponin, CK-MB, BNP, CRP, TSH, free T4, PSA, urinalysis, and a CT of the chest, abdomen, and pelvis with IV contrast. His WBC count was found to be mildly elevated at 12.03, with slight anemia with a H/H slightly depressed at 12.2/39.1. His BUN/Cr were elevated at 27/2.6, with hyperglycemia of 219. His Hgb A1c was elevated at 8.20%. His BNP was elevated at 1656. His TSH was elevated at 4.720, with a free T4 normal at 0.94. The CT of his chest was unremarkable, while the CT of his abdomen and pelvis found a slight stable retroperitoneal adenopathy and diverticulosis without diverticulitis. There was equivocal inflammatory change around his gallbladder. The remainder of his work-up was unremarkable. He was diagnosed with CHF, treated with IV Lasix, IV Dilaudid, IV Reglan, and oral lactulose before being discharged home with prescriptions for Percocet 5/325, 1 tablet po Q 4 hrs prn #24 and lactulose 20 mg po as directed #600 ml. Here in the ED tonight, the patient's initial BP is found to be elevated at 163/87, with slight tachypnea of 24 rpm. He is otherwise hemodynamically stable, afebrile, saturating 95% on room air. The patient states that he has been compliant with his prescribed medications. Other than the above symptoms, the patient denies having a recent fever, chills, sore throat, ear pain, nasal or sinus congestion, palpitations, nausea, vomiting, constipation, diarrhea, urinary symptoms, recent bloody bowel movements or black bowel movements, headaches, or rashes. The patient's PCP is Dr. Mell Flood at the [facility]. - Related Data Allergies Allergy/AdvReac Type Severity Reaction Status Date / Time Penicillins Allergy Mild Hives Verified 11/18/20 16:01 Sulfa (Sulfonamide Allergy Mild Hives Verified 11/18/20 16:01 Antibiotics) Home Meds: Home Meds Losartan [Cozaar] 100 mg PO DAILY tablet 05/23/19 [Rx] Dulaglutide [Trulicity] 1.5 mg SQ SA 06/26/19 [History] Apixaban [Eliquis] 5 mg PO BID 11/27/19 [History] Diclofenac Sodium [Voltaren 1% Gel] 4 gram TOP QID PRN 11/27/19 [History] Multivitamin [Daily Multiple Vitamin] 1 tab PO DAILY 11/27/19 [History] Sodium Bicarbonate 650 mg PO BID 11/27/19 [History] Albuterol Sulfate [Proventil Hfa] 2 puff INH Q4H PRN 02/07/20 [History] Alogliptin Benzoate [Alogliptin] 25 mg PO DAILY 02/07/20 [History] Mirtazapine 45 mg PO BEDTIME 02/07/20 [History] Rosuvastatin Calcium 20 mg PO BEDTIME 02/07/20 [History] methIMAzole [Tapazole] 5 mg PO DAILY 02/07/20 [History] Famotidine [Pepcid] 20 mg PO BID #60 tablet 08/23/20 [Rx] Nicotine [Habitrol] 21 mg TRDERM DAILY patch 08/23/20 [Rx] carvediloL [Coreg] 25 mg PO BID #120 tablet 08/23/20 [Rx] Insulin Lispro [HumaLOG] 0 unit SUBCUT QIDACANDBED vial 08/29/20 [Rx] Insulin Glarg,Human.Rec.Analog [Lantus] 48 unit SUBCUT BEDTIME 11/18/20 [History] Lactulose 20 gm PO ASDIRECTED #600 ml 11/18/20 [Rx] oxyCODONE HCl/Acetaminophen [Percocet 5-325 mg Tablet] 1 each PO Q4H PRN #24 tablet 11/18/20 [Rx] Past Medical History HEENT History: Reports: Glaucoma, Hard of Hearing, Impaired Vision (wears glasses) Cardiovascular History: Reports: Afib (paroxysmal), Heart Failure (diastolic), High Cholesterol, Hypertension Respiratory History: Reports: COPD (suspected, not tested), Sleep Apnea (nightly CPAP 9) Gastrointestinal History: Reports: Diverticulosis (diverticulitis), GERD Genitourinary History: Reports: Chronic Renal Insuffiency, Diabetic Nephropathy Musculoskeletal History: Reports: Arthritis (right thumb) Psychiatric History: Reports: Anxiety, Depression Endocrine/Metabolic History: Reports: Diabetes, Type II (Controlled with Lantus 48 units daily. Trulicity 1.5 mg subcutaneously once weekly and alogliptin 25 mg daily.), Hyperthyroidism (Grave Dz), Obesity/BMI 30+ Oncologic (Cancer) History: Reports: Prostate (s/p brachytherapy) - Infectious Disease History Infectious Disease History: Reports: Novel Coronavirus (dx'd 08/20/2020), Other (See Below) ([place] spotted fever) - Past Surgical History GI Surgical History: Reports: Appendectomy, EGD (x 1) Male Surgical History: Reports: Prostate Biopsy, Other (See Below) (left kidney bx) Other Musculoskeletal Surgeries/Procedures:: left hand surgery Oncologic Surgical History: Reports: Other (See Below) (Prostate brachytherapy) Social & Family History - Family History Cardiac: Reports: Heart Failure Respiratory: Reports: Asthma - Tobacco Use Years of Tobacco use: 49 Packs/Tins Daily: 3 Month/Year Tobacco Last Used: Quit midJun 2020 - Caffeine Use Caffeine Use: Reports: Coffee, Soda Other Caffeine Use: 2 cups a day - Alcohol Use Alcohol Use History: Yes Alcohol Use Frequency: Rarely - Recreational Drug Use Recreational Drug Use: Yes Drug Use in Last 12 Months: Yes Recreational Drug Type: Reports: Marijuana/Hashish (CBD oil daily) - Living Situation & Occupation Living situation: Reports: , Alone Occupation: Retired ED ROS GENERAL - Review of Systems Review Of Systems: Comprehensive ROS is negative, except as noted in HPI. ED EXAM, GENERAL - Physical Exam Exam: See Below Exam Limited By: No Limitations General Appearance: Alert, WD/WN, No Apparent Distress Eye Exam: Bilateral Eye: EOMI, Normal Inspection Ears: Normal External Exam, Hearing Grossly Normal Nose: Normal Inspection Throat/Mouth: Normal Inspection, Normal Lips, Normal Voice, No Airway Compromise Head: Atraumatic, Normocephalic Neck: Normal Inspection, Full Range of Motion Respiratory/Chest: No Respiratory Distress, No Accessory Muscle Use, Decreased Breath Sounds (mild, bibasilar), Crackles (slight, bibasilar). No: Rhonchi, Wheezing, Stridor, Prolonged Expiration Cardiovascular: Normal Peripheral Pulses, Regular Rate, Rhythm, No Gallop, No JVD, No Murmur, No Rub Peripheral Pulses: 3+: Radial (L), Radial (R) GI/Abdominal: Normal Bowel Sounds, Soft, No Organomegaly, No Distention, No Abnormal Bruit, No Mass, Tender (generalized, non-focal) Back Exam: Normal Inspection, Full Range of Motion, NT Extremities: Normal Range of Motion, Normal Capillary Refill, Other (1-2+ pitting pretibial edema bilaterally) Neurological: Alert, Oriented, Normal Cognition, No Motor/Sensory Deficits Psychiatric: Normal Affect Skin Exam: Warm, Dry, Intact, Normal Color, No Rash #1 Interpretation EKG Date: 11/22/20 Time: 19:39 Rhythm: NSR (with occasional PACs) Rate (Beats/Min): 60 [place]: Normal P-Wave: Present QRS: Normal ST-T: Normal QT: Normal Comparison: Change From Previous EKG (Was in A-fib on 11/18/2020) Course - Vital Signs Last Recorded V/S: Last Vital Signs Temp 36.2 C 11/22/20 19:23 Pulse 64 11/22/20 23:12 Resp 20 11/22/20 23:12 BP 164/98 H 11/22/20 23:12 Pulse Ox 96 11/22/20 23:12 - Orders/Labs/Meds Orders: Active Orders 24 hr Category Date Time Status EKG Documentation Completion [RC] STAT Care 11/22/20 19:53 Active Chest 1V Frontal [CR] Stat Exams 11/22/20 19:52 Taken Isolation [COMM] Routine Oth 11/22/20 19:54 Ordered Labs: Laboratory Tests 11/22/20 11/22/20 11/22/20 Range/Units 19:48 19:48 19:48 WBC 9.51 H (4.23-9.07) K/mm3 RBC 4.17 L (4.63-6.08) M/mm3 Hgb 11.8 L (13.7-17.5) gm/dl Hct 38.8 L (40.1-51.0) % MCV 93.0 H (79.0-92.2) fl MCH 28.3 (25.7-32.2) pg MCHC 30.4 L (32.2-35.5) g/dl RDW Std Deviation 53.2 H (35.1-43.9) fL Plt Count 223 (163-337) K/mm3 MPV 11.3 (9.4-12.3) fl Neutrophils % (Manual) 66 H (40-60) % Band Neutrophils % 1 (0-10) % Lymphocytes % (Manual) 26 (20-40) % Atypical Lymphs % 0 % Monocytes % (Manual) 4 (2-10) % Eosinophils % (Manual) 2 (0.8-7.0) % Basophils % (Manual) 1 (0.2-1.2) Platelet Estimate Adequate Polychromasia Few Hypochromasia 1+ slight Anisocytosis 1+ slight Ovalocytes 1+ slight RBC Morph Comment Not Reportable Puncture Site ABG pH (7.35-7.45) ABG pCO2 (35.0-45.0) mmHg ABG pO2 (80.0-100.0) mmHg ABG HCO3 (22.0-26.0) meq/L ABG O2 Saturation (96.0-97.0) % ABG Base Excess (-2-2.0) Angel Luis Test A-a Gradient mmHg O2 Delivery Device FiO2 (21.00-100.00) % Sodium 141 (136-145) mEq/L Potassium 4.4 (3.5-5.1) mEq/L Chloride 105 (98-107) mEq/L Carbon Dioxide 27 (21-32) mEq/L Anion Gap 13.4 (5-15) BUN 40 H (7-18) mg/dL Creatinine 3.3 H (0.7-1.3) mg/dL Est Cr Clr Drug Dosing 23.66 mL/min Estimated GFR (MDRD) 19 (>60) mL/min BUN/Creatinine Ratio 12.1 L (14-18) Glucose 328 H (80-115) mg/dL Lactic Acid 1.2 (0.4-2.0) mmol/L Calcium 9.6 (8.5-10.1) mg/dL Magnesium 2.4 (1.8-2.4) mg/dl Total Bilirubin 0.3 (0.2-1.0) mg/dL AST 16 (15-37) U/L ALT 25 (16-63) U/L Alkaline Phosphatase 110 (46-116) U/L Troponin I 0.024 (0.00-0.056) ng/mL NT-Pro-B Natriuret Pep (0-125) pg/mL Total Protein 7.4 (6.4-8.2) g/dl Albumin 3.4 (3.4-5.0) g/dl Globulin 4.0 gm/dL Albumin/Globulin Ratio 0.9 L (1-2) Lipase 84 (73-393) U/L Urine Color (Yellow) Urine Appearance (Clear) Urine pH (5.0-8.0) Ur Specific [place] (1.005-1.030) Urine Protein (Negative) Urine Glucose (UA) (Negative) Urine Ketones (Negative) Urine Occult Blood (Negative) Urine Nitrite (Negative) Urine Bilirubin (Negative) Urine Urobilinogen (0.2-1.0) Ur Leukocyte Esterase (Negative) U Hyaline Cast (Auto) (0-5) /lpf Urine RBC (0-5) /hpf Urine WBC (0-5) /hpf Ur Squamous Epith Cells (0-5) /hpf Urine Bacteria (FEW) /hpf Urine Mucus (FEW) /hpf SARS-CoV-2 RNA (GRAYSON) (NEGATIVE) 11/22/20 11/22/20 11/22/20 Range/Units 19:48 20:00 20:50 WBC (4.23-9.07) K/mm3 RBC (4.63-6.08) M/mm3 Hgb (13.7-17.5) gm/dl Hct (40.1-51.0) % MCV (79.0-92.2) fl MCH (25.7-32.2) pg MCHC (32.2-35.5) g/dl RDW Std Deviation (35.1-43.9) fL Plt Count (163-337) K/mm3 MPV (9.4-12.3) fl Neutrophils % (Manual) (40-60) % Band Neutrophils % (0-10) % Lymphocytes % (Manual) (20-40) % Atypical Lymphs % % Monocytes % (Manual) (2-10) % Eosinophils % (Manual) (0.8-7.0) % Basophils % (Manual) (0.2-1.2) Platelet Estimate Polychromasia Hypochromasia Anisocytosis Ovalocytes RBC Morph Comment Puncture Site Lt radial ABG pH 7.39 (7.35-7.45) ABG pCO2 43.0 (35.0-45.0) mmHg ABG pO2 69.0 L (80.0-100.0) mmHg ABG HCO3 25.6 (22.0-26.0) meq/L ABG O2 Saturation 92.7 L (96.0-97.0) % ABG Base Excess 1.0 (-2-2.0) Angel Luis Test Positive A-a Gradient 27 mmHg O2 Delivery Device Room air FiO2 21.00 (21.00-100.00) % Sodium (136-145) mEq/L Potassium (3.5-5.1) mEq/L Chloride (98-107) mEq/L Carbon Dioxide (21-32) mEq/L Anion Gap (5-15) BUN (7-18) mg/dL Creatinine (0.7-1.3) mg/dL Est Cr Clr Drug Dosing mL/min Estimated GFR (MDRD) (>60) mL/min BUN/Creatinine Ratio (14-18) Glucose (80-115) mg/dL Lactic Acid (0.4-2.0) mmol/L Calcium (8.5-10.1) mg/dL Magnesium (1.8-2.4) mg/dl Total Bilirubin (0.2-1.0) mg/dL AST (15-37) U/L ALT (16-63) U/L Alkaline Phosphatase (46-116) U/L Troponin I (0.00-0.056) ng/mL NT-Pro-B Natriuret Pep 2465 H (0-125) pg/mL Total Protein (6.4-8.2) g/dl Albumin (3.4-5.0) g/dl Globulin gm/dL Albumin/Globulin Ratio (1-2) Lipase (73-393) U/L Urine Color Yellow (Yellow) Urine Appearance Clear (Clear) Urine pH 6.0 (5.0-8.0) Ur Specific [place] 1.025 (1.005-1.030) Urine Protein 3+ H (Negative) Urine Glucose (UA) 2+ H (Negative) Urine Ketones Negative (Negative) Urine Occult Blood Trace-intact H (Negative) Urine Nitrite Negative (Negative) Urine Bilirubin Negative (Negative) Urine Urobilinogen 0.2 (0.2-1.0) Ur Leukocyte Esterase Negative (Negative) U Hyaline Cast (Auto) 5-10 H (0-5) /lpf Urine RBC 5-10 H (0-5) /hpf Urine WBC 0-5 (0-5) /hpf Ur Squamous Epith Cells 0-5 (0-5) /hpf Urine Bacteria Few (FEW) /hpf Urine Mucus Not seen (FEW) /hpf SARS-CoV-2 RNA (GRAYSON) (NEGATIVE) 11/22/20 Range/Units 21:39 WBC (4.23-9.07) K/mm3 RBC (4.63-6.08) M/mm3 Hgb (13.7-17.5) gm/dl Hct (40.1-51.0) % MCV (79.0-92.2) fl MCH (25.7-32.2) pg MCHC (32.2-35.5) g/dl RDW Std Deviation (35.1-43.9) fL Plt Count (163-337) K/mm3 MPV (9.4-12.3) fl Neutrophils % (Manual) (40-60) % Band Neutrophils % (0-10) % Lymphocytes % (Manual) (20-40) % Atypical Lymphs % % Monocytes % (Manual) (2-10) % Eosinophils % (Manual) (0.8-7.0) % Basophils % (Manual) (0.2-1.2) Platelet Estimate Polychromasia Hypochromasia Anisocytosis Ovalocytes RBC Morph Comment Puncture Site ABG pH (7.35-7.45) ABG pCO2 (35.0-45.0) mmHg ABG pO2 (80.0-100.0) mmHg ABG HCO3 (22.0-26.0) meq/L ABG O2 Saturation (96.0-97.0) % ABG Base Excess (-2-2.0) Angel Luis Test A-a Gradient mmHg O2 Delivery Device FiO2 (21.00-100.00) % Sodium (136-145) mEq/L Potassium (3.5-5.1) mEq/L Chloride (98-107) mEq/L Carbon Dioxide (21-32) mEq/L Anion Gap (5-15) BUN (7-18) mg/dL Creatinine (0.7-1.3) mg/dL Est Cr Clr Drug Dosing mL/min Estimated GFR (MDRD) (>60) mL/min BUN/Creatinine Ratio (14-18) Glucose (80-115) mg/dL Lactic Acid (0.4-2.0) mmol/L Calcium (8.5-10.1) mg/dL Magnesium (1.8-2.4) mg/dl Total Bilirubin (0.2-1.0) mg/dL AST (15-37) U/L ALT (16-63) U/L Alkaline Phosphatase (46-116) U/L Troponin I (0.00-0.056) ng/mL NT-Pro-B Natriuret Pep (0-125) pg/mL Total Protein (6.4-8.2) g/dl Albumin (3.4-5.0) g/dl Globulin gm/dL Albumin/Globulin Ratio (1-2) Lipase (73-393) U/L Urine Color (Yellow) Urine Appearance (Clear) Urine pH (5.0-8.0) Ur Specific [place] (1.005-1.030) Urine Protein (Negative) Urine Glucose (UA) (Negative) Urine Ketones (Negative) Urine Occult Blood (Negative) Urine Nitrite (Negative) Urine Bilirubin (Negative) Urine Urobilinogen (0.2-1.0) Ur Leukocyte Esterase (Negative) U Hyaline Cast (Auto) (0-5) /lpf Urine RBC (0-5) /hpf Urine WBC (0-5) /hpf Ur Squamous Epith Cells (0-5) /hpf Urine Bacteria (FEW) /hpf Urine Mucus (FEW) /hpf SARS-CoV-2 RNA (GRAYSON) Negative (NEGATIVE) Meds: Medications Discontinued Medications Generic Name Dose Route Start Last Admin Trade Name Freq PRN Reason Stop Dose Admin Furosemide 40 mg 11/22/20 21:29 11/22/20 21:37 Lasix IVPUSH 11/22/20 21:30 40 mg NOW ONE Administration Hydromorphone HCl 0.5 mg 11/22/20 23:33 Dilaudid IVPUSH 11/22/20 23:34 ONETIME ONE Insulin Human Regular 5 unit 11/22/20 21:29 11/22/20 21:37 Humulin R IV 11/22/20 21:30 5 unit ONETIME STA Administration - Re-Assessments/Exams Free Text/Narrative Re-Assessment/Exam: 11/22/20 19:55 As above, the patient has had 3 weeks of dyspnea and whole-body pain, along with 2 days of a cough productive of off-white sputum. He reports a 10 pound weight gain over the past 2 days. He has not seen his PCP over the past few weeks, however, a nurse over the phone instructed him to come to the ED tonight. He is not febrile or hypoxemic. His lungs are a bit diminished at the bases with slight crackles, and he complains of tenderness to his chest, abdomen, and lower extremities. I have ordered a work-up that includes several blood tests, an ABG, a urinalysis, and influenza swab, a portable chest x-ray, and an ECG. The patient asked me to give him something to help him relax, but I think it would be more prudent to first try to figure out what is going on with the patient before I simply give him a sedative or opioid. 11/22/20 21:25 Portable chest radiograph reviewed. There is likely mild cardiomegaly. Mild pulmonary vascular congestion. No pleural effusions seen on this AP view. No focal infiltrate. No pneumothorax. Formal read per the Radiologist pending. The patient's CBC is remarkable for mild leukocytosis of 9.51, but with only 1% bandemia. He has mild anemia, with a H/H of 11.8/38.8, with the remainder of his CBC being unremarkable. His CMP is remarkable for a BUN/Cr that is at 40/3.3, and hyperglycemia of 328, with the remainder of his CMP being unremarkable. His magnesium level is within normal limits at 2.4. His lactic acid level is within normal limits at 1.2. His lipase level is within normal limits at 84. His troponin is within normal limits at 0.024. His pro-BNP is elevated at 2465. His ABG demonstrates a fully compensated chronic respiratory alkalosis. His urinalysis is unremarkable. His influenza swab returned negative. The patient's BUN/Cr were 27/2.6 and his proBNP 1656 on 11/18/2020. Based on the above, I have added a swab for the SARS-CoV-2 virus, as the patient will need to be admitted for CHF exacerbation. I have ordered 40 mg of IV Lasix, and 5 units of regular insulin IVP. 11/22/20 23:04 The patient's swab for the SARS-CoV-2 virus has returned negative. 11/22/20 23:27 Test results discussed with the patient. As above, the patient appears to be in decompensated CHF with hyperglycemia. I am recommending admission to the hospital for diuresis and gaining control of his hyperglycemia, however, the patient is primarily concerned about getting pain medication. I strongly suspect that his visit tonight is precipitated by him running out of the 24 Percocet that were prescribed to him 4 days ago. 11/22/20 23:[address] Choco Alvarez at 23:28. He accepted the patient for admission to the hospital. I will write bridge orders. Departure - Departure Time of Disposition: 23:32 Disposition: DC/Tfer to Acute Hospital 02 Condition: Fair Clinical Impression: CHF exacerbation, Hyperglycemia due to type 2 diabetes mellitus, Chronic renal insufficiency - Discharge Information *PRESCRIPTION DRUG MONITORING PROGRAM REVIEWED*: Not Applicable *COPY OF PRESCRIPTION DRUG MONITORING REPORT IN PATIENT [place]: Not Applicable Referrals: Mell Flood MD [Ordering Only Provider] - Forms: ED Department Discharge Sepsis Event Note (ED) - Evaluation Sepsis Screening Result: No Definite Risk - Focused Exam Vital Signs: Vital Signs Temp Pulse Resp BP Pulse Ox 11/22/20 23:12 64 20 164/98 H 96 11/22/20 19:23 36.2 C 63 24 H 163/87 H 95 - My Orders Last 24 Hours: My Active Orders 11/22/20 19:52 Chest 1V Frontal [CR] Stat 11/22/20 19:53 EKG Documentation Completion [RC] STAT 11/22/20 19:54 Isolation [COMM] Routine - Assessment/Plan Last 24 Hours: My Active Orders 11/22/20 19:52 Chest 1V Frontal [CR] Stat 11/22/20 19:53 EKG Documentation Completion [RC] STAT 11/22/20 19:54 Isolation [COMM] Routine
[2020-11-22] MEDS ORDERED: Insulin Regular, Human 100 Units/ML 3 ML Vial IV STA (21:29)
[2020-11-22] MEDS ORDERED: Furosemide 40 MG/4 ML VIAL IVPUSH ONE (21:29)
[2020-11-22] MEDS ORDERED: HYDROmorphone 0.5 MG/0.5 ML Syringe IVPUSH ONE (23:33)
[2020-11-23] MEDS ORDERED: Furosemide 40 MG/4 ML VIAL IVPUSH ONE (04:10)
[2020-11-23] MEDS: Morphine 2 MG/ML SYRINGE IVPUSH PRN ×2 (04:29→21:37)
--- NOTE | 2020-11-23 07:34 | PCM.HP.2 ---
H&P History of Present Illness - General Date of Service: 11/23/20 Admit Problem/Dx: Admission Diagnosis/Problem Admission Diagnosis/Problem Congestive heart failure Source of Information: Patient, Old Records History Limitations: Reports: No Limitations - History of Present Illness Initial Comments - Free Text/Narative: The patient is a 65-year-old gentleman who had presented to the emergency department complaining of shortness of breath, chest pain along with swollen fe et and ankles. Patient also has a history of chronic renal insufficiency or CKD stage IV. He is a diabetic as well. The patient reports that his symptoms started approximately 3 weeks ago. The patient has had bilateral lower extremity pain and his shortness of breath had worsened over the past few days. Patient was previously diagnosed with COVID-19 in July 2020. The patient was supposed to go to cardiology but he did not. He says that he was not notified of appointments. [facility] The patient also says that he has difficulty in breathing while lying flat. He has had a cough that has been productive of thin whitish sputum. The patient also reports that he has been gaining weight over the past several days. The patient also has been complaining of abdominal pain in his right upper abdominal wall. The patient says that that is from heavy coughing from his previous COVID-19 infection. Onset of Symptoms: Reports: Gradual Duration of Symptoms: Reports: Day(s): Location: Reports: Chest, Abdomen, Lower Extremity, Left, Lower Extremity, Right Quality: Reports: Ache, Throbbing Severity: Moderate Improves with: Reports: Medication Worsens with: Reports: Movement Associated Symptoms: Reports: Chest Pain, cough w sputum Bilateral Leg Pain Score (Numeric/FACES): 6 - Related Data Allergies/Adverse Reactions: Allergies Allergy/AdvReac Type Severity Reaction Status Date / Time Penicillins Allergy Mild Hives Verified 11/18/20 16:01 Sulfa (Sulfonamide Allergy Mild Hives Verified 11/18/20 16:01 Antibiotics) Home Medications: Home Meds Dulaglutide [Trulicity] 1.5 mg SQ SA 06/26/19 [History] Apixaban [Eliquis] 5 mg PO BID 11/27/19 [History] Diclofenac Sodium [Voltaren 1% Gel] 4 gram TOP QID PRN 11/27/19 [History] Multivitamin [Daily Multiple Vitamin] 1 tab PO DAILY 11/27/19 [History] Sodium Bicarbonate 650 mg PO BID 11/27/19 [History] Albuterol Sulfate [Proventil Hfa] 2 puff INH Q4H PRN 02/07/20 [History] Alogliptin Benzoate [Alogliptin] 25 mg PO DAILY 02/07/20 [History] Mirtazapine 45 mg PO BEDTIME 02/07/20 [History] Rosuvastatin Calcium 20 mg PO BEDTIME 02/07/20 [History] methIMAzole [Tapazole] 5 mg PO DAILY 02/07/20 [History] carvediloL [Coreg] 25 mg PO BID #120 tablet 08/23/20 [Rx] Insulin Glarg,Human.Rec.Analog [Lantus] 48 unit SUBCUT BEDTIME 11/18/20 [History] oxyCODONE HCl/Acetaminophen [Percocet 5-325 mg Tablet] 1 each PO Q4H PRN #24 tablet 11/18/20 [Rx] Insulin Lispro [HumaLOG] See Protocol SUBCUT QIDACANDBED 11/23/20 [History] Lactulose 20 gm PO ASDIRECTED PRN 11/23/20 [History] Losartan [Cozaar] 100 mg PO BEDTIME 11/23/20 [History] Past Medical History HEENT History: Reports: Glaucoma, Hard of Hearing, Impaired Vision Other HEENT History: wears eyeglasses for driving only Cardiovascular History: Reports: Afib, Heart Failure, High Cholesterol, Hypertension Respiratory History: Reports: COPD, Sleep Apnea Other Respiratory History: hypoxemic respiratory failure, cpap at home Gastrointestinal History: Reports: Diverticulosis, GERD Genitourinary History: Reports: Chronic Renal Insuffiency, Diabetic Nephropathy Other Genitourinary History: Hx of prostate cancer. 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 - Past Surgical History Head Surgeries/Procedures: Reports: None HEENT Surgical History: Reports: None Cardiovascular Surgical History: Reports: None Respiratory Surgical History: Reports: None GI Surgical History: Reports: Appendectomy Male Surgical History: Reports: Prostate Biopsy, Other (See Below) Other Male Surgeries/Procedures: radioactive seeds placed Endocrine Surgical History: Reports: None Neurological Surgical History: Reports: None Musculoskeletal Surgical History: Reports: None Other Musculoskeletal Surgeries/Procedures:: left hand surgery Oncologic Surgical History: Reports: Other (See Below) Dermatological Surgical History: Reports: None Social & Family History - Family History Family Medical History: No Pertinent Family History Cardiac: Reports: Heart Failure Respiratory: Reports: Asthma - Tobacco Use Tobacco Use Status *Q: Former Tobacco User Years of Tobacco use: 40 Packs/Tins Daily: 2 Used Tobacco, but Quit: Yes Month/Year Tobacco Last Used: 09/2020 Second Hand Smoke Exposure: No - Caffeine Use Caffeine Use: Reports: Coffee Other Caffeine Use: 2 cups a day,diet soda - Recreational Drug Use Recreational Drug Use: Yes Drug Use in Last 12 Months: Yes Recreational Drug Type: Reports: Marijuana/Hashish - Living Situation & Occupation Living situation: Reports: , Alone Occupation: Retired H&P Review of Systems - Review of Systems: Review Of Systems: See Below General: Reports: Weakness, Fatigue HEENT: Reports: No Symptoms Pulmonary: Reports: Shortness of Breath, Cough, Sputum Cardiovascular: Reports: Chest Pain, Dyspnea on Exertion, Orthopnea, Edema Gastrointestinal: Reports: Abdominal Pain Genitourinary: Reports: No Symptoms Musculoskeletal: Reports: No Symptoms Skin: Reports: No Symptoms Psychiatric: Reports: No Symptoms Neurological: Reports: No Symptoms Hematologic/Lymphatic: Reports: No Symptoms Immunologic: Reports: No Symptoms Exam - Exam Exam: See Below - Vital Signs Vital Signs: Last Vital Signs Temp 36.5 C 11/23/20 00:42 Pulse 83 11/23/20 00:42 Resp 20 11/23/20 00:42 BP 166/98 H 11/23/20 02:43 Pulse Ox 93 L 11/23/20 00:42 Weight: 110.726 kg - Exam Quality Assessment: DVT Prophylaxis. No: Supplemental Oxygen General: Alert, Oriented, Cooperative, Mild Distress HEENT: Conjunctiva Clear, EACs Clear, EOMI, Hearing Intact, Mucosa Moist & [place], PERRLA Neck: Supple, Trachea Midline Lungs: Crackles (Bibasilar) Cardiovascular: Regular Rate, Regular Rhythm. No: Systolic Murmur, Diastolic Murmur GI/Abdominal Exam: Normal Bowel Sounds, Tender (Right-sided abdominal wall), Other (Ventral hernia) (Male) Exam: Deferred Rectal (Males) Exam: Deferred Back Exam: Normal Inspection, Full Range of Motion Extremities: Normal Inspection, No Pedal Edema Skin: Warm, Dry, Intact Neurological: Cranial Nerves Intact, Normal Gait, Normal Speech Neuro Extensive - Mental Status: Alert, Oriented x3, Memory Intact Psychiatric: Alert, Normal Affect, Normal Mood - Patient Data Lab Results Last 24 hrs: Laboratory Results - last 24 hr 11/22/20 11/22/20 11/22/20 Range/Units 19:48 19:48 19:48 WBC 9.51 H (4.23-9.07) K/mm3 RBC 4.17 L (4.63-6.08) M/mm3 Hgb 11.8 L (13.7-17.5) gm/dl Hct 38.8 L (40.1-51.0) % MCV 93.0 H (79.0-92.2) fl MCH 28.3 (25.7-32.2) pg MCHC 30.4 L (32.2-35.5) g/dl RDW Std Deviation 53.2 H (35.1-43.9) fL Plt Count 223 (163-337) K/mm3 MPV 11.3 (9.4-12.3) fl Neutrophils % (Manual) 66 H (40-60) % Band Neutrophils % 1 (0-10) % Lymphocytes % (Manual) 26 (20-40) % Atypical Lymphs % 0 % Monocytes % (Manual) 4 (2-10) % Eosinophils % (Manual) 2 (0.8-7.0) % Basophils % (Manual) 1 (0.2-1.2) Platelet Estimate Adequate Polychromasia Few Hypochromasia 1+ slight Anisocytosis 1+ slight Ovalocytes 1+ slight RBC Morph Comment Not Reportable Puncture Site ABG pH (7.35-7.45) ABG pCO2 (35.0-45.0) mmHg ABG pO2 (80.0-100.0) mmHg ABG HCO3 (22.0-26.0) meq/L ABG O2 Saturation (96.0-97.0) % ABG Base Excess (-2-2.0) Angel Luis Test A-a Gradient mmHg O2 Delivery Device FiO2 (21.00-100.00) % Sodium 141 (136-145) mEq/L Potassium 4.4 (3.5-5.1) mEq/L Chloride 105 (98-107) mEq/L Carbon Dioxide 27 (21-32) mEq/L Anion Gap 13.4 (5-15) BUN 40 H (7-18) mg/dL Creatinine 3.3 H (0.7-1.3) mg/dL Est Cr Clr Drug Dosing 23.66 mL/min Estimated GFR (MDRD) 19 (>60) mL/min BUN/Creatinine Ratio 12.1 L (14-18) Glucose 328 H (80-115) mg/dL POC Glucose (80-115) mg/dL Lactic Acid 1.2 (0.4-2.0) mmol/L Calcium 9.6 (8.5-10.1) mg/dL Magnesium 2.4 (1.8-2.4) mg/dl Total Bilirubin 0.3 (0.2-1.0) mg/dL AST 16 (15-37) U/L ALT 25 (16-63) U/L Alkaline Phosphatase 110 (46-116) U/L Troponin I 0.024 (0.00-0.056) ng/mL NT-Pro-B Natriuret Pep (0-125) pg/mL Total Protein 7.4 (6.4-8.2) g/dl Albumin 3.4 (3.4-5.0) g/dl Globulin 4.0 gm/dL Albumin/Globulin Ratio 0.9 L (1-2) Lipase 84 (73-393) U/L Urine Color (Yellow) Urine Appearance (Clear) Urine pH (5.0-8.0) Ur Specific [place] (1.005-1.030) Urine Protein (Negative) Urine Glucose (UA) (Negative) Urine Ketones (Negative) Urine Occult Blood (Negative) Urine Nitrite (Negative) Urine Bilirubin (Negative) Urine Urobilinogen (0.2-1.0) Ur Leukocyte Esterase (Negative) U Hyaline Cast (Auto) (0-5) /lpf Urine RBC (0-5) /hpf Urine WBC (0-5) /hpf Ur Squamous Epith Cells (0-5) /hpf Urine Bacteria (FEW) /hpf Urine Mucus (FEW) /hpf SARS-CoV-2 RNA (GRAYSON) (NEGATIVE) 11/22/20 11/22/20 11/22/20 Range/Units 19:48 20:00 20:50 WBC (4.23-9.07) K/mm3 RBC (4.63-6.08) M/mm3 Hgb (13.7-17.5) gm/dl Hct (40.1-51.0) % MCV (79.0-92.2) fl MCH (25.7-32.2) pg MCHC (32.2-35.5) g/dl RDW Std Deviation (35.1-43.9) fL Plt Count (163-337) K/mm3 MPV (9.4-12.3) fl Neutrophils % (Manual) (40-60) % Band Neutrophils % (0-10) % Lymphocytes % (Manual) (20-40) % Atypical Lymphs % % Monocytes % (Manual) (2-10) % Eosinophils % (Manual) (0.8-7.0) % Basophils % (Manual) (0.2-1.2) Platelet Estimate Polychromasia Hypochromasia Anisocytosis Ovalocytes RBC Morph Comment Puncture Site Lt radial ABG pH 7.39 (7.35-7.45) ABG pCO2 43.0 (35.0-45.0) mmHg ABG pO2 69.0 L (80.0-100.0) mmHg ABG HCO3 25.6 (22.0-26.0) meq/L ABG O2 Saturation 92.7 L (96.0-97.0) % ABG Base Excess 1.0 (-2-2.0) Angel Luis Test Positive A-a Gradient 27 mmHg O2 Delivery Device Room air FiO2 21.00 (21.00-100.00) % Sodium (136-145) mEq/L Potassium (3.5-5.1) mEq/L Chloride (98-107) mEq/L Carbon Dioxide (21-32) mEq/L Anion Gap (5-15) BUN (7-18) mg/dL Creatinine (0.7-1.3) mg/dL Est Cr Clr Drug Dosing mL/min Estimated GFR (MDRD) (>60) mL/min BUN/Creatinine Ratio (14-18) Glucose (80-115) mg/dL POC Glucose (80-115) mg/dL Lactic Acid (0.4-2.0) mmol/L Calcium (8.5-10.1) mg/dL Magnesium (1.8-2.4) mg/dl Total Bilirubin (0.2-1.0) mg/dL AST (15-37) U/L ALT (16-63) U/L Alkaline Phosphatase (46-116) U/L Troponin I (0.00-0.056) ng/mL NT-Pro-B Natriuret Pep 2465 H (0-125) pg/mL Total Protein (6.4-8.2) g/dl Albumin (3.4-5.0) g/dl Globulin gm/dL Albumin/Globulin Ratio (1-2) Lipase (73-393) U/L Urine Color Yellow (Yellow) Urine Appearance Clear (Clear) Urine pH 6.0 (5.0-8.0) Ur Specific [place] 1.025 (1.005-1.030) Urine Protein 3+ H (Negative) Urine Glucose (UA) 2+ H (Negative) Urine Ketones Negative (Negative) Urine Occult Blood Trace-intact H (Negative) Urine Nitrite Negative (Negative) Urine Bilirubin Negative (Negative) Urine Urobilinogen 0.2 (0.2-1.0) Ur Leukocyte Esterase Negative (Negative) U Hyaline Cast (Auto) 5-10 H (0-5) /lpf Urine RBC 5-10 H (0-5) /hpf Urine WBC 0-5 (0-5) /hpf Ur Squamous Epith Cells 0-5 (0-5) /hpf Urine Bacteria Few (FEW) /hpf Urine Mucus Not seen (FEW) /hpf SARS-CoV-2 RNA (GRAYSON) (NEGATIVE) 11/22/20 11/23/20 Range/Units 21:39 01:08 WBC (4.23-9.07) K/mm3 RBC (4.63-6.08) M/mm3 Hgb (13.7-17.5) gm/dl Hct (40.1-51.0) % MCV (79.0-92.2) fl MCH (25.7-32.2) pg MCHC (32.2-35.5) g/dl RDW Std Deviation (35.1-43.9) fL Plt Count (163-337) K/mm3 MPV (9.4-12.3) fl Neutrophils % (Manual) (40-60) % Band Neutrophils % (0-10) % Lymphocytes % (Manual) (20-40) % Atypical Lymphs % % Monocytes % (Manual) (2-10) % Eosinophils % (Manual) (0.8-7.0) % Basophils % (Manual) (0.2-1.2) Platelet Estimate Polychromasia Hypochromasia Anisocytosis Ovalocytes RBC Morph Comment Puncture Site ABG pH (7.35-7.45) ABG pCO2 (35.0-45.0) mmHg ABG pO2 (80.0-100.0) mmHg ABG HCO3 (22.0-26.0) meq/L ABG O2 Saturation (96.0-97.0) % ABG Base Excess (-2-2.0) Angel Luis Test A-a Gradient mmHg O2 Delivery Device FiO2 (21.00-100.00) % Sodium (136-145) mEq/L Potassium (3.5-5.1) mEq/L Chloride (98-107) mEq/L Carbon Dioxide (21-32) mEq/L Anion Gap (5-15) BUN (7-18) mg/dL Creatinine (0.7-1.3) mg/dL Est Cr Clr Drug Dosing mL/min Estimated GFR (MDRD) (>60) mL/min BUN/Creatinine Ratio (14-18) Glucose (80-115) mg/dL POC Glucose 115 (80-115) mg/dL Lactic Acid (0.4-2.0) mmol/L Calcium (8.5-10.1) mg/dL Magnesium (1.8-2.4) mg/dl Total Bilirubin (0.2-1.0) mg/dL AST (15-37) U/L ALT (16-63) U/L Alkaline Phosphatase (46-116) U/L Troponin I (0.00-0.056) ng/mL NT-Pro-B Natriuret Pep (0-125) pg/mL Total Protein (6.4-8.2) g/dl Albumin (3.4-5.0) g/dl Globulin gm/dL Albumin/Globulin Ratio (1-2) Lipase (73-393) U/L Urine Color (Yellow) Urine Appearance (Clear) Urine pH (5.0-8.0) Ur Specific [place] (1.005-1.030) Urine Protein (Negative) Urine Glucose (UA) (Negative) Urine Ketones (Negative) Urine Occult Blood (Negative) Urine Nitrite (Negative) Urine Bilirubin (Negative) Urine Urobilinogen (0.2-1.0) Ur Leukocyte Esterase (Negative) U Hyaline Cast (Auto) (0-5) /lpf Urine RBC (0-5) /hpf Urine WBC (0-5) /hpf Ur Squamous Epith Cells (0-5) /hpf Urine Bacteria (FEW) /hpf Urine Mucus (FEW) /hpf SARS-CoV-2 RNA (GRAYSON) Negative (NEGATIVE) Result Diagrams: 11/22/20 19:48 11/22/20 19:48 [place] Results Last 24 hrs: Microbiology 11/22/20 20:30 Influenza Type A Antigen Screen - Final Nasopharyngeal Swab NEGATIVE INFLUENZA A VIRUS AG REFERENCE RANGE: NEGATIVE Influenza Type B Antigen Screen - Final NEGATIVE INFLUENZA B VIRUS AG REFERENCE RANGE: NEGATIVE Sepsis Event Note - Evaluation Sepsis Screening Result: No Definite Risk - Focused Exam Vital Signs: Vital Signs Temp Pulse Pulse Resp BP BP Pulse Ox 11/23/20 02:43 166/98 H 11/23/20 02:41 158/87 H 11/23/20 00:42 36.5 C 83 20 150/103 H 93 L 11/22/20 23:12 64 20 164/98 H 96 - Problem List (1) CHF exacerbation SNOMED Code(s): 034461213, 55605831730431 ICD Code: I50.9 - HEART FAILURE, UNSPECIFIED Status: Acute Priority: High Current Visit: Yes Qualifiers: Heart failure type: combined systolic and diastolic Qualified Code(s): I50.43 - Acute on chronic combined systolic (congestive) and diastolic (congestive) heart failure (2) Chronic renal insufficiency SNOMED Code(s): 019469494 ICD Code: N18.9 - CHRONIC KIDNEY DISEASE, UNSPECIFIED Status: Chronic Priority: High Current Visit: Yes Qualifiers: Chronic kidney disease stage: stage 4 (severe) Qualified Code(s): N18.4 - Chronic kidney disease, stage 4 (severe) (3) COPD (chronic obstructive pulmonary disease) SNOMED Code(s): 93489259 ICD Code: J44.9 - CHRONIC OBSTRUCTIVE PULMONARY DISEASE, UNSPECIFIED Status: Chronic Priority: High Current Visit: Yes Qualifiers: COPD type: unspecified COPD Qualified Code(s): J44.9 - Chronic obstructive pulmonary disease, unspecified (4) Uncontrolled diabetes mellitus SNOMED Code(s): 12488625, 467130132 ICD Code: E11.65 - TYPE 2 DIABETES MELLITUS WITH HYPERGLYCEMIA Status: Chronic Priority: High Current Visit: Yes Qualifiers: Diabetes mellitus type: type 2 Glycemic state: with hyperglycemia Qualified Code(s): E11.65 - Type 2 diabetes mellitus with hyperglycemia (5) Ventral hernia without obstruction or gangrene SNOMED Code(s): 871413971 ICD Code: K43.9 - VENTRAL HERNIA WITHOUT OBSTRUCTION OR GANGRENE Status: Chronic Priority: Medium Current Visit: Yes Problem List Initiated/Reviewed/Updated: Yes Orders Last 24hrs: Active Orders 24 hr Category Date Time Status Admission Status [Patient Status] [ADT] Routine ADT 11/22/20 23:51 Active CPAP Adult [RT BiPAP/CPAP] [RC] BEDTIME Care 11/23/20 02:17 Active Fluid Restriction [DIET] Diet 11/23/20 Breakfast Active Sodium Restricted Diet [DIET] Diet 11/23/20 Breakfast Active Chest 1V Frontal [CR] Stat Exams 11/22/20 19:52 Taken Morphine Med 11/23/20 04:10 Active 2 mg IVPUSH Q4H PRN Isolation [COMM] Routine Oth 11/23/20 01:15 Ordered Resuscitation Status Routine Resus Stat 11/23/20 02:19 Ordered Medication Orders Morphine Sulfate (Morphine) 2 mg IVPUSH Q4H PRN PRN Reason: Pain Last Admin: 11/23/20 04:29 Dose: 2 mg Documented by: GOSIA Assessment/Plan Comment:: Patient is a 65-year-old gentleman who has a number of chronic medical conditions. The patient was admitted primarily out of concern for lower extremity pitting edema. Patient also has significant orthopnea. He does have a history of congestive heart failure and his last 2D echocardiogram in August 2020 showed an ejection fraction of 43%. I have ordered a repeat 2D echocardiogram as he has had some changes in his overall health. The patient will be placed on fluid restriction of 1500 mL/day. Strict input and output have been ordered. He will be kept on a carb constant diet with sliding scale insulin. The patient does not require DVT prophylaxis as he is currently on home medication for chronic atrial fibrillation with apixaban. Repeat labor atory studies have been ordered for the morning. The patient has been encouraged to ambulate. He also has a rather large ventral hernia and this will need to be followed up with surgeon. This can be done as an outpatient through the [facility]. The patient should be appropriate for discharge in 1 to 2 days depending upon his fluid status. - Mortality Measure Prognosis:: Good
[2020-11-23] MEDS ORDERED: Albuterol 6.7 GM Inhaler INH PRN (09:26)
[2020-11-23] MEDS ORDERED: Ondansetron 4 MG Tab.DIS PO PRN (09:30)
[2020-11-23] MEDS ORDERED: Sodium Chloride 0.9% 10 ML Syringe FLUSH PRN (09:30)
[2020-11-23] MEDS ORDERED: Temazepam 15 MG Cap PO PRN (09:30)
[2020-11-23] MEDS ORDERED: Acetaminophen 325 MG Tab PO PRN (09:30)
--- NOTE | 2020-11-23 09:56 | CR ---
Chest: Portable view of the chest was obtained. Comparison: Prior chest x-ray of 08/20/20. Heart size appears within normal limits. Tortuous thoracic aorta is seen. Slight pleural thickening is seen within both posterior lungs. Minimal scarring is seen within the left lung base. No acute parenchymal change is appreciated. Bony structures are grossly intact. Impression: 1. Nothing acute is appreciated on portable chest x-ray. 2. Findings believed to be incidental as noted above. Diagnostic code #2
[2020-11-23] MEDS: Carvedilol 12.5 MG Tab PO SCH ×2 (10:10→21:07)
[2020-11-23] MEDS: Methimazole 5 MG Tab PO SCH (10:11)
[2020-11-23] MEDS: Sodium Bicarbonate 650 MG Tab PO SCH ×2 (10:11→20:57)
[2020-11-23] MEDS: Acetaminophen/oxyCODONE 325-5 MG Tab PO PRN ×2 (10:11→17:35)
[2020-11-23] MEDS: Apixaban 5 MG Tab PO SCH ×2 (10:11→20:57)
[2020-11-23] MEDS: Insulin Regular, Human 100 Units/ML 3 ML Vial SUBCUT SCH ×2 (12:07→18:16)
[2020-11-23] MEDS ORDERED: Mirtazapine 30 MG Tab PO SCH (21:00)
[2020-11-23] MEDS ORDERED: Rosuvastatin 10 MG Tab PO SCH (21:00)
[2020-11-23] MEDS ORDERED: Losartan 100 MG Tab PO SCH (21:00)
[2020-11-24] MEDS: Morphine 2 MG/ML SYRINGE IVPUSH PRN (04:35)
[2020-11-24] MEDS ORDERED: Multivitamins,Therapeutic Tab PO SCH (09:00)
[2020-11-24] MEDS: Methimazole 5 MG Tab PO SCH (09:34)
[2020-11-24] MEDS: Carvedilol 12.5 MG Tab PO SCH (09:34)
[2020-11-24] MEDS: Apixaban 5 MG Tab PO SCH (09:36)
[2020-11-24] MEDS: Sodium Bicarbonate 650 MG Tab PO SCH (09:36)
[2020-11-24] MEDS: Insulin Regular, Human 100 Units/ML 3 ML Vial SUBCUT SCH ×2 (09:39→12:22)
[2020-11-24] MEDS: Acetaminophen/oxyCODONE 325-5 MG Tab PO PRN (09:46)
[2020-11-24] MEDS ORDERED: Furosemide 40 MG Tab PO SCH (14:15)
--- NOTE | 2020-11-24 14:52 | PCM.DCSUM1 ---
Discharge Summary - Hospital Course HPI Initial Comments: The patient is a 65-year-old gentleman who had presented to the emergency department complaining of shortness of breath, chest pain along with swollen feet and ankles. Patient also has a history of chronic renal insufficiency or CKD stage IV. He is a diabetic as well. The patient reports that his symptoms started approximately 3 weeks ago. The patient has had bilateral lower extremity pain and his shortness of breath had worsened over the past few days. Patient was previously diagnosed with COVID-19 in July 2020. The patient was supposed to go to cardiology but he did not. He says that he was not notified of appointments. [facility] The patient also says that he has difficulty in breathing while lying flat. He has had a cough that has been productive of thin whitish sputum. The patient also reports that he has been gaining weight over the past several days. The patient also has been complaining of abdominal pain in his right upper abdominal wall. The patient says that that is from heavy coughing from his previous COVID-19 infection. Assessment/Plan Comment:: Patient is a 65-year-old gentleman who has a number of chronic medical conditions. The patient was admitted primarily out of concern for lower extremity pitting edema. Patient also has significant orthopnea. He does have a history of congestive heart failure and his last 2D echocardiogram in August 2020 showed an ejection fraction of 43%. I have ordered a repeat 2D echocardiogram as he has had some changes in his overall health. The patient will be placed on fluid restriction of 1500 mL/day. Strict input and output have been ordered. He will be kept on a carb constant diet with sliding scale insulin. The patient does not require DVT prophylaxis as he is currently on home medication for chronic atrial fibrillation with apixaban. Repeat laboratory studies have been ordered for the morning. The patient has been encouraged to ambulate. He also has a rather large ventral hernia and this will need to be followed up with surgeon. This can be done as an outpatient through the [facility]. The patient should be appropriate for discharge in 1 to 2 days depending upon his fluid status. Diagnosis: Stroke: No - Discharge Data Discharge Date: 11/24/20 Discharge Disposition: Home, Self-Care 01 Condition: Good - Referral to Home Health Primary Care Physician: PCP None - Discharge Diagnosis/Problem(s) (1) CHF exacerbation SNOMED Code(s): 434926837, 83157117177593 ICD Code: I50.9 - HEART FAILURE, UNSPECIFIED Status: Acute Priority: High Current Visit: Yes Qualifiers: Heart failure type: combined systolic and diastolic Qualified Code(s): I50.43 - Acute on chronic combined systolic (congestive) and diastolic (congestive) heart failure (2) Hyperglycemia due to type 2 diabetes mellitus SNOMED Code(s): 559039077655281, 932272308624545 ICD Code: E11.65 - TYPE 2 DIABETES MELLITUS WITH HYPERGLYCEMIA Status: Acute Current Visit: Yes (3) COPD (chronic obstructive pulmonary disease) SNOMED Code(s): 14639785 ICD Code: J44.9 - CHRONIC OBSTRUCTIVE PULMONARY DISEASE, UNSPECIFIED Status: Chronic Priority: High Current Visit: Yes Qualifiers: COPD type: unspecified COPD Qualified Code(s): J44.9 - Chronic obstructive pulmonary disease, unspecified (4) Chronic renal insufficiency SNOMED Code(s): 808184015 ICD Code: N18.9 - CHRONIC KIDNEY DISEASE, UNSPECIFIED Status: Chronic Priority: High Current Visit: Yes Qualifiers: Chronic kidney disease stage: stage 4 (severe) Qualified Code(s): N18.4 - Chronic kidney disease, stage 4 (severe) - Patient Summary/Data Hospital Course: Patient did well overnight. Swelling is down. Patient did state that he has been living on ham sandwiches with cheese. This is likely the cause of his exacerbation of CHF. Patient is not short of breath and has had a 5 pound weight loss. - Patient Instructions Diet: Heart Healthy Diet Fluid Restriction: 1500 mL Activity: As Tolerated Driving: May Drive Today, Do Not Drive Showering/Bathing: May Shower Notify Provider of: Swelling and Redness Other/Special Instructions: Follow up with PCP and cardiology. - Discharge Plan *PRESCRIPTION DRUG MONITORING PROGRAM REVIEWED*: Not Applicable *COPY OF PRESCRIPTION DRUG MONITORING REPORT IN PATIENT [place]: Not Applicable Home Medications: Home Meds Dulaglutide [Trulicity] 1.5 mg SQ SA 06/26/19 [History] Apixaban [Eliquis] 5 mg PO BID 11/27/19 [History] Sodium Bicarbonate 650 mg PO BID 11/27/19 [History] Albuterol Sulfate [Proventil Hfa] 2 puff INH Q4H PRN 02/07/20 [History] Rosuvastatin Calcium 20 mg PO BEDTIME 02/07/20 [History] methIMAzole [Tapazole] 5 mg PO DAILY 02/07/20 [History] carvediloL [Coreg] 25 mg PO BID #120 tablet 08/23/20 [Rx] Insulin Glarg,Human.Rec.Analog [Lantus] 48 unit SUBCUT BEDTIME 11/18/20 [History] oxyCODONE HCl/Acetaminophen [Percocet 5-325 mg Tablet] 1 each PO Q4H PRN #24 tablet 11/18/20 [Rx] Losartan [Cozaar] 100 mg PO BEDTIME 11/23/20 [History] Acarbose 25 mg PO TIDMEALS 11/24/20 [History] Famotidine 10 mg PO BEDTIME 11/24/20 [History] Furosemide 40 mg PO DAILY 11/24/20 [History] Insulin Aspart [NovoLOG] 0 unit SUBCUT TIDAC 11/24/20 [History] Latanoprost/Pf [Latanoprost 0.005% Eye Drop] 1 drop EYEBOTH BEDTIME 11/24/20 [History] Melatonin 9 mg PO BEDTIME PRN 11/24/20 [History] Nortriptyline HCl [Pamelor] 50 mg PO BEDTIME 11/24/20 [History] Sennosides/Docusate Sodium [Senna-Docusate Sodium Tablet] 2 tab PO BID PRN 11/24/20 [History] Vit B Comp No.3/Folic/C/Biotin [Nephro-Galilea Rx Tablet] 1 tab PO DAILY 11/24/20 [History] Patient Handouts: Chronic Obstructive Pulmonary Disease Exacerbation, [id number], Type 2 Diabetes Mellitus, Diagnosis, Adult, Heart Failure, Self Care, [id number], Type 2 Diabetes Mellitus, Self Care, Adult, CPAP and BPAP Information, Living With Heart Failure, Heart Failure and Exercise, Diabetes Mellitus and Exercise, Diabetes Mellitus and Nutrition, Adult Forms: ED Department Discharge Referrals: Mell Flood MD [Ordering Only Provider] - - Discharge Summary/Plan Comment DC Time >30 min.: No - General Info Date of Service: 11/24/20 Admission Dx/Problem (Free Text: Admission Diagnosis/Problem Admission Diagnosis/Problem Congestive heart failure Functional Status: Reports: Pain Controlled - Review of Systems General: Reports: No Symptoms HEENT: Reports: No Symptoms Pulmonary: Reports: No Symptoms Cardiovascular: Reports: No Symptoms Gastrointestinal: Reports: No Symptoms Psychiatric: Reports: No Symptoms - Patient Data Vitals - Most Recent: Last Vital Signs Temp 98.1 F 11/24/20 11:40 Pulse 87 11/24/20 11:40 Resp 18 11/24/20 11:40 BP 144/93 H 11/24/20 11:40 Pulse Ox 92 L 11/24/20 11:40 Weight - Most Recent: 239 lb 6.4 oz I&O - Last 24 hours: Intake & Output 11/23/20 11/24/20 11/24/20 22:59 06:59 14:59 Intake Total 480 300 600 Output Total 2300 1700 Balance -1820 -1400 600 Lab Results - Last 24 hrs: Laboratory Results - last 24 hr 11/23/20 11/23/20 11/23/20 Range/Units 11:15 16:29 20:54 WBC (4.23-9.07) K/mm3 RBC (4.63-6.08) M/mm3 Hgb (13.7-17.5) gm/dl Hct (40.1-51.0) % MCV (79.0-92.2) fl MCH (25.7-32.2) pg MCHC (32.2-35.5) g/dl RDW Std Deviation (35.1-43.9) fL Plt Count (163-337) K/mm3 MPV (9.4-12.3) fl Neut % (Auto) (34.0-67.9) % Lymph % (Auto) (21.8-53.1) % [place] % (Auto) (5.3-12.2) % Eos % (Auto) (0.8-7.0) Baso % (Auto) (0.1-1.2) % Neut # (Auto) (1.78-5.38) K/mm3 Lymph # (Auto) (1.32-3.57) K/mm3 [place] # (Auto) (0.30-0.82) K/mm3 Eos # (Auto) (0.04-0.54) K/mm3 Baso # (Auto) (0.01-0.08) K/mm3 Sodium (136-145) mEq/L Potassium (3.5-5.1) mEq/L Chloride (98-107) mEq/L Carbon Dioxide (21-32) mEq/L Anion Gap (5-15) BUN (7-18) mg/dL Creatinine (0.7-1.3) mg/dL Est Cr Clr Drug Dosing mL/min Estimated GFR (MDRD) (>60) mL/min BUN/Creatinine Ratio (14-18) Glucose (80-115) mg/dL POC Glucose 309 H 210 H 231 H (80-115) mg/dL Calcium (8.5-10.1) mg/dL Magnesium (1.8-2.4) mg/dl Total Bilirubin (0.2-1.0) mg/dL AST (15-37) U/L ALT (16-63) U/L Alkaline Phosphatase (46-116) U/L Total Protein (6.4-8.2) g/dl Albumin (3.4-5.0) g/dl Globulin gm/dL Albumin/Globulin Ratio (1-2) 11/24/20 11/24/20 11/24/20 Range/Units 04:40 04:40 06:28 WBC 9.82 H (4.23-9.07) K/mm3 RBC 4.47 L (4.63-6.08) M/mm3 Hgb 12.7 L (13.7-17.5) gm/dl Hct 41.8 (40.1-51.0) % MCV 93.5 H (79.0-92.2) fl MCH 28.4 (25.7-32.2) pg MCHC 30.4 L (32.2-35.5) g/dl RDW Std Deviation 53.5 H (35.1-43.9) fL Plt Count 228 (163-337) K/mm3 MPV 11.4 (9.4-12.3) fl Neut % (Auto) 65.7 (34.0-67.9) % Lymph % (Auto) 18.6 L (21.8-53.1) % [place] % (Auto) 12.3 H (5.3-12.2) % Eos % (Auto) 2.9 (0.8-7.0) Baso % (Auto) 0.3 (0.1-1.2) % Neut # (Auto) 6.45 H (1.78-5.38) K/mm3 Lymph # (Auto) 1.83 (1.32-3.57) K/mm3 [place] # (Auto) 1.21 H (0.30-0.82) K/mm3 Eos # (Auto) 0.28 (0.04-0.54) K/mm3 Baso # (Auto) 0.03 (0.01-0.08) K/mm3 Sodium 144 (136-145) mEq/L Potassium 4.3 (3.5-5.1) mEq/L Chloride 106 (98-107) mEq/L Carbon Dioxide 28 (21-32) mEq/L Anion Gap 14.3 (5-15) BUN 30 H (7-18) mg/dL Creatinine 2.6 H (0.7-1.3) mg/dL Est Cr Clr Drug Dosing 30.03 mL/min Estimated GFR (MDRD) 25 (>60) mL/min BUN/Creatinine Ratio 11.5 L (14-18) Glucose 209 H (80-115) mg/dL POC Glucose 224 H (80-115) mg/dL Calcium 9.4 (8.5-10.1) mg/dL Magnesium 2.1 (1.8-2.4) mg/dl Total Bilirubin 0.3 (0.2-1.0) mg/dL AST 20 (15-37) U/L ALT 27 (16-63) U/L Alkaline Phosphatase 110 (46-116) U/L Total Protein 7.4 (6.4-8.2) g/dl Albumin 3.2 L (3.4-5.0) g/dl Globulin 4.2 gm/dL Albumin/Globulin Ratio 0.8 L (1-2) 11/24/20 Range/Units 12:15 WBC (4.23-9.07) K/mm3 RBC (4.63-6.08) M/mm3 Hgb (13.7-17.5) gm/dl Hct (40.1-51.0) % MCV (79.0-92.2) fl MCH (25.7-32.2) pg MCHC (32.2-35.5) g/dl RDW Std Deviation (35.1-43.9) fL Plt Count (163-337) K/mm3 MPV (9.4-12.3) fl Neut % (Auto) (34.0-67.9) % Lymph % (Auto) (21.8-53.1) % [place] % (Auto) (5.3-12.2) % Eos % (Auto) (0.8-7.0) Baso % (Auto) (0.1-1.2) % Neut # (Auto) (1.78-5.38) K/mm3 Lymph # (Auto) (1.32-3.57) K/mm3 [place] # (Auto) (0.30-0.82) K/mm3 Eos # (Auto) (0.04-0.54) K/mm3 Baso # (Auto) (0.01-0.08) K/mm3 Sodium (136-145) mEq/L Potassium (3.5-5.1) mEq/L Chloride (98-107) mEq/L Carbon Dioxide (21-32) mEq/L Anion Gap (5-15) BUN (7-18) mg/dL Creatinine (0.7-1.3) mg/dL Est Cr Clr Drug Dosing mL/min Estimated GFR (MDRD) (>60) mL/min BUN/Creatinine Ratio (14-18) Glucose (80-115) mg/dL POC Glucose 294 H (80-115) mg/dL Calcium (8.5-10.1) mg/dL Magnesium (1.8-2.4) mg/dl Total Bilirubin (0.2-1.0) mg/dL AST (15-37) U/L ALT (16-63) U/L Alkaline Phosphatase (46-116) U/L Total Protein (6.4-8.2) g/dl Albumin (3.4-5.0) g/dl Globulin gm/dL Albumin/Globulin Ratio (1-2) Med Orders - Current: Current Medications Acetaminophen (Tylenol) 650 mg PO Q4H PRN PRN Reason: Pain (Mild 1-3)/fever Albuterol (Proventil Hfa) 0 gm INH Q4H PRN PRN Reason: Shortness of Breath Apixaban (Eliquis) 5 mg PO BID [facility] Last Admin: 11/24/20 09:36 Dose: 5 mg Documented by: Carvedilol (Coreg) 25 mg PO BID [facility] Last Admin: 11/24/20 09:34 Dose: 25 mg Documented by: Famotidine (Pepcid) 10 mg PO BEDTIME [facility] Furosemide (Lasix) 40 mg PO DAILY [facility] Insulin Human Regular (Humulin R) 0 unit SUBCUT TIDPC [facility]; Protocol Last Admin: 11/24/20 12:22 Dose: 6 unit Documented by: Latanoprost (Xalatan 0.005% Ophth Soln) 0 ml EYEBOTH BEDTIME [facility] Losartan Potassium (Cozaar) 100 mg PO BEDTIME [facility] Last Admin: 11/23/20 20:57 Dose: 100 mg Documented by: Melatonin (Melatonin) 9 mg PO BEDTIME PRN PRN Reason: Sleep Methimazole (Methimazole) 5 mg PO DAILY [facility] Last Admin: 11/24/20 09:34 Dose: 5 mg Documented by: Mirtazapine (Remeron) 45 mg PO BEDTIME [facility] Last Admin: 11/23/20 20:57 Dose: 45 mg Documented by: Morphine Sulfate (Morphine) 2 mg IVPUSH Q4H PRN PRN Reason: Pain Last Admin: 11/24/20 04:35 Dose: 2 mg Documented by: Multivitamins (Thera) 1 each PO DAILY [facility] Last Admin: 11/24/20 09:37 Dose: 1 each Documented by: Dulaglutide [ Trulicity] 1.5 Mg Ptom 1.5 mg SQ SA [facility] Nortriptyline HCl (Nortriptyline) 50 mg PO BEDTIME [facility] Ondansetron HCl (Zofran Odt) 4 mg PO Q6H PRN PRN Reason: nausea, able to take PO Last Admin: 11/23/20 21:40 Dose: 4 mg Documented by: Oxycodone/Acetaminophen (Percocet 325-5 Mg) 1 tab PO Q4H PRN PRN Reason: pain relief. Last Admin: 11/24/20 09:46 Dose: 1 tab Documented by: Rosuvastatin Calcium (Crestor) 20 mg PO BEDTIME [facility] Last Admin: 11/23/20 20:55 Dose: 20 mg Documented by: Sodium Bicarbonate (Sodium Bicarbonate) 650 mg PO BID [facility] Last Admin: 11/24/20 09:36 Dose: 650 mg Documented by: Sodium Chloride (Saline Flush) 10 ml FLUSH ASDIRECTED PRN PRN Reason: Keep Vein Open Temazepam (Restoril) 15 mg PO BEDTIME PRN PRN Reason: Sleep Discontinued Medications Alogliptin Benzoate (Alogliptin) 25 mg PO DAILY [facility] Last Admin: 11/23/20 10:11 Dose: 25 mg Documented by: Alogliptin Benzoate (Alogliptin) 6.25 mg PO DAILY [facility] Last Admin: 11/24/20 09:35 Dose: 6.25 mg Documented by: Furosemide (Lasix) 40 mg IVPUSH NOW ONE Stop: 11/22/20 21:30 Last Admin: 11/22/20 21:37 Dose: 40 mg Documented by: Furosemide (Lasix) 40 mg IVPUSH NOW ONE Stop: 11/23/20 04:11 Last Admin: 11/23/20 04:33 Dose: 40 mg Documented by: Hydromorphone HCl (Dilaudid) 0.5 mg IVPUSH ONETIME ONE Stop: 11/22/20 23:34 Last Admin: 11/22/20 23:56 Dose: 0.5 mg Documented by: Insulin Human Regular (Humulin R) 5 unit IV ONETIME STA Stop: 11/22/20 21:30 Last Admin: 11/22/20 21:37 Dose: 5 unit Documented by: - Exam Quality Assessment: Denies: Supplemental Oxygen General: Reports: Alert, Oriented HEENT: Reports: Pupils Equal, Mucous Membr. Moist/[place] Neck: Reports: Supple Lungs: Reports: Normal Respiratory Effort, Crackles (Mild throughout) Cardiovascular: Reports: Irregular Rhythm GI/Abdominal Exam: Normal Bowel Sounds, Soft, Non-Tender, No Distention, No Abnormal Bruit Extremities: Normal Range of Motion, Non-Tender, Normal Capillary Refill, Pedal Edema (1+ bilaterally) Skin: Reports: Warm, Dry, Intact Psy/Mental Status: Reports: Alert, Normal Affect, Normal Mood
[2020-11-24] MEDS ORDERED: Nortriptyline 25 MG Cap PO SCH (21:00)
[2020-11-24] MEDS ORDERED: Melatonin 3 MG Tab PO PRN (21:00)
[2020-11-24] MEDS ORDERED: Famotidine 10 MG Tab PO SCH (21:00)
[2020-11-24] MEDS ORDERED: Latanoprost 0.005% Ophth Soln 2.5 ML Bottle EYEBOTH SCH (21:00)
[2020-11-29] MEDS ORDERED: Dulaglutide [Trulicity] 1.5 MG **PTOM SQ SCH (09:00)
== END 2020-11-24 15:56 | disposition home or self-care (01) | DRG 291 ==
LOC: JD.ED 19:15 → JD.MS 23:51
PROVIDERS: ADMIT Internal Medicine Critical Care Medicine; ATTEND Internal Medicine
DX: I13.0 Hypertensive heart and chronic kidney disease with heart failure and stage 1 through stage 4 chronic kidney disease, or unspecified chronic kidney disease (principal); I50.33 Acute on chronic diastolic (congestive) heart failure; N18.9 Chronic kidney disease, unspecified; I50.43 Acute on chronic combined systolic (congestive) and diastolic (congestive) heart failure; N18.4 Chronic kidney disease, stage 4 (severe); I48.0 Paroxysmal atrial fibrillation; E78.00 Pure hypercholesterolemia, unspecified; I48.20 Chronic atrial fibrillation, unspecified; E11.65 Type 2 diabetes mellitus with hyperglycemia; J44.9 Chronic obstructive pulmonary disease, unspecified; E11.22 Type 2 diabetes mellitus with diabetic chronic kidney disease; H91.90 Unspecified hearing loss, unspecified ear; H54.7 Unspecified visual loss; H40.9 Unspecified glaucoma; I48.91 Unspecified atrial fibrillation; G47.30 Sleep apnea, unspecified; K21.9 Gastro-esophageal reflux disease without esophagitis; E11.21 Type 2 diabetes mellitus with diabetic nephropathy; M19.90 Unspecified osteoarthritis, unspecified site; Z20.828 Contact with and (suspected) exposure to other viral communicable diseases; G89.29 Other chronic pain; G43.909 Migraine, unspecified, not intractable, without status migrainosus; F41.9 Anxiety disorder, unspecified; Z20.822 Contact with and (suspected) exposure to COVID-19; F32.9 Major depressive disorder, single episode, unspecified; E05.90 Thyrotoxicosis, unspecified without thyrotoxic crisis or storm; E66.9 Obesity, unspecified; Z88.0 Allergy status to penicillin; Z88.2 Allergy status to sulfonamides; Z79.899 Other long term (current) drug therapy; Z79.01 Long term (current) use of anticoagulants; Z79.4 Long term (current) use of insulin; Z99.81 Dependence on supplemental oxygen; Z85.46 Personal history of malignant neoplasm of prostate; Z90.49 Acquired absence of other specified parts of digestive tract; Z87.891 Personal history of nicotine dependence; Z68.34 Body mass index [BMI] 34.0-34.9, adult
CPT/HCPCS: 36415; 36600; 71045; 71045-26; 80053; 81001; 82803; 82962; 83605; 83690; 83735; 83880; 84484; 85007; 85025; 85027; 87804; 93005; 93010; 93306; 94660; 96374; 96375; 99285; 99285-25; A9270-GY; J1170; J1815-GY; J1940; J2270; U0002

== ENCOUNTER 2021-01-27 11:11 | Emergency (ER) | payer OTHER, MEDICAID ==
[2021-01-27] MEDS ORDERED: Sodium Chloride 0.9% 10 ML Syringe FLUSH PRN (11:41)
--- NOTE | 2021-01-27 12:42 | EDM.PDOC ---
ED HPI GENERAL MEDICAL PROBLEM - General Chief Complaint: Cardiovascular Problem Stated Complaint: SYNCOPE/ARM PAIN/ LEGS SWELLING Time Seen by Provider: 01/27/21 11:22 Source of Information: Reports: Patient History Limitations: Reports: No Limitations - History of Present Illness INITIAL COMMENTS - FREE TEXT/NARRATIVE: 65-year-old male presents to the emergency department with complaints of a syncopal episode that occurred about 1-1/2 hours prior to arrival. This patient has a fairly complex medical history. He is significant for CHF, atrial fib, hypertension, diabetes. He states he was showering this morning and bent over to wash his feet and then had a syncopal episode while he was in the shower. Patient states he was able to catch himself with his right hand on the side of the shower and then dropped onto his knees. He states that he felt like he was going in and out of consciousness for short bit and then it was resolved. He denies falling out of the shower or injuring himself. However, he states he has never had anything happen like this before in the past. He states that he takes 40 mg of Lasix daily however he states that he does not to void much after he does take this. He states he was taking 80/day however his kidney function declined significantly. He has orthopnea. States he always has edema noted to his bilateral feet and ankles. States he has noted about a 15 pound weight gain over the past 2 weeks. Complains of lower leg pain which is chronic for him. His primary physician is Dr. Flood at the [place] [facility]. Left Arm Pain Score (Numeric/FACES): 7 - Related Data Allergies Allergy/AdvReac Type Severity Reaction Status Date / Time Penicillins Allergy Severe Hives Verified 01/27/21 11:29 Sulfa (Sulfonamide Allergy Severe Hives Verified 01/27/21 11:29 Antibiotics) Home Meds: Home Meds Dulaglutide [Trulicity] 1.5 mg SQ SA 06/26/19 [History] Apixaban [Eliquis] 5 mg PO BID 11/27/19 [History] Sodium Bicarbonate 650 mg PO BID 11/27/19 [History] Albuterol Sulfate [Proventil Hfa] 2 puff INH Q4H PRN 02/07/20 [History] Rosuvastatin Calcium 20 mg PO BEDTIME 02/07/20 [History] methIMAzole [Tapazole] 5 mg PO DAILY 02/07/20 [History] carvediloL [Coreg] 25 mg PO BID #120 tablet 08/23/20 [Rx] Insulin Glarg,Human.Rec.Analog [Lantus] 48 unit SUBCUT BEDTIME 11/18/20 [History] oxyCODONE HCl/Acetaminophen [Percocet 5-325 mg Tablet] 1 each PO Q4H PRN #24 tablet 11/18/20 [Rx] Losartan [Cozaar] 100 mg PO BEDTIME 11/23/20 [History] Acarbose 25 mg PO TIDMEALS 11/24/20 [History] Famotidine 10 mg PO BEDTIME 11/24/20 [History] Furosemide 40 mg PO DAILY 11/24/20 [History] Insulin Aspart [NovoLOG] 0 unit SUBCUT TIDAC 11/24/20 [History] Latanoprost/Pf [Latanoprost 0.005% Eye Drop] 1 drop EYEBOTH BEDTIME 11/24/20 [History] Melatonin 9 mg PO BEDTIME PRN 11/24/20 [History] Nortriptyline HCl [Pamelor] 50 mg PO BEDTIME 11/24/20 [History] Sennosides/Docusate Sodium [Senna-Docusate Sodium Tablet] 2 tab PO BID PRN 11/24/20 [History] Vit B Comp No.3/Folic/C/Biotin [Nephro-Galilea Rx Tablet] 1 tab PO DAILY 11/24/20 [History] Past Medical History HEENT History: Reports: Glaucoma, Hard of Hearing, Impaired Vision Other HEENT History: wears eyeglasses for driving only Cardiovascular History: Reports: Afib, Heart Failure, High Cholesterol, Hypertension Respiratory History: Reports: COPD, Sleep Apnea Other Respiratory History: hypoxemic respiratory failure, cpap at home Gastrointestinal History: Reports: Diverticulosis, GERD Genitourinary History: Reports: Chronic Renal Insuffiency, Diabetic Nephropathy Other Genitourinary History: Hx of prostate cancer. 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 - Past Surgical History GI Surgical History: Reports: Appendectomy Male Surgical History: Reports: Prostate Biopsy, Other (See Below) Other Male Surgeries/Procedures: radioactive seeds placed Musculoskeletal Surgical History: Reports: Other (See Below) Other Musculoskeletal Surgeries/Procedures:: left hand surgery Social & Family History - Family History Family Medical History: No Pertinent Family History Cardiac: Reports: Heart Failure Respiratory: Reports: Asthma - Tobacco Use Tobacco Use Status *Q: Former Tobacco User Used Tobacco, but Quit: Yes Month/Year Tobacco Last Used: 01/11 - Caffeine Use Caffeine Use: Reports: Coffee Other Caffeine Use: 2 cups a day,diet soda - Recreational Drug Use Recreational Drug Use: Yes Recreational Drug Type: Reports: Marijuana/Hashish - Living Situation & Occupation Living situation: Reports: , Alone Occupation: Retired ED ROS GENERAL - Review of Systems Review Of Systems: See Below Constitutional: Reports: No Symptoms. Denies: Fever, Chills, Diaphoresis HEENT: Reports: No Symptoms Respiratory: Reports: Cough (Chronic since he had Covid in October). Denies: Shortness of Breath, Sputum Cardiovascular: Reports: Chest Pain (Pressure after syncopal episode), Orthopnea, Syncope (While bending over in the shower about a hour and a half ago). Denies: Palpitations Endocrine: Reports: No Symptoms GI/Abdominal: Reports: No Symptoms. Denies: Diarrhea, Nausea, Vomiting : Reports: No Symptoms Musculoskeletal: Reports: Leg Pain (Bilateral lower extremity which is chronic for him) Skin: Reports: No Symptoms Neurological: Reports: No Symptoms Psychiatric: Reports: No Symptoms Hematologic/Lymphatic: Reports: No Symptoms Immunologic: Reports: No Symptoms ED EXAM, GENERAL - Physical Exam Exam: See Below Exam Limited By: No Limitations General Appearance: Alert, WD/WN, No Apparent Distress Eye Exam: Bilateral Eye: PERRL Ears: Normal External Exam, Hearing Grossly Normal Nose: Normal Inspection Throat/Mouth: Normal Inspection, Normal Lips, Normal Voice, No Airway Compromise Head: Atraumatic, Normocephalic Neck: Normal Inspection, Supple, Non-Tender, Full Range of Motion Respiratory/Chest: No Respiratory Distress, Lungs Clear, Normal Breath Sounds, No Accessory Muscle Use, Chest Non-Tender Cardiovascular: Normal Peripheral Pulses, Irregularly Irregular (Chronic atrial fib). No: Regular Rate, Rhythm, No Edema (1+ pitting to bilateral lower extremities), No Murmur Peripheral Pulses: 1+: Dorsalis Pedis (L), Dorsalis Pedis (R), 2+: Radial (L), Radial (R) GI/Abdominal: Normal Bowel Sounds, Soft, Non-Tender, Distended (Male) Exam: Deferred Rectal (Males) Exam: Deferred Back Exam: Normal Inspection, Full Range of Motion Extremities: Normal Inspection, Normal Range of Motion, Non-Tender, Normal Capillary Refill, Pedal Edema (Bilateral lower extremities) Neurological: Alert, Oriented, Normal Cognition Psychiatric: Normal Affect, Normal Mood Skin Exam: Warm, Dry, Intact, Normal Color, No Rash Lymphatic: No Adenopathy #1 Interpretation EKG Date: 01/27/21 Time: 11:40 Rhythm: NSR Rate (Beats/Min): 79 P-Wave: Absent QRS: Normal ST-T: Normal QT: Normal EKG Interpretation Comments: Per Dr. Michaels interpretation: a fib 79, 1 PVC, no ST elevation or depression Course - Vital Signs Text/Narrative:: 65-year-old male presenting with a syncopal episode that occurred about an hour and a half prior to arrival. States he was in the shower and had bent over to wash his feet when he passed out. He states he was able to catch himself holding onto the side of the tub but dropped to his knees. He states his vision went dark and then he was able to sit there for a minute and he was more arousable. Patient states he does not have a history of any syncopal episodes in the past. However, he does have a history of CHF, A. fib, hypertension, renal failure and diabetes. States that after the episode he had a slight bit of chest pressure and shortness of breath. However this did resolve. I have not ordered an EKG to rule out a cardiac event, labs, and chest x-ray. Patient is complaining of bilateral lower extremity pain which is chronic for him. He states he normally takes Percocet but he is out. At this time I do not want to give him narcotics as I prefer to sort out what is going on with his syncopal episode first. I offered him Tylenol however he states this does not work. Last Recorded V/S: Last Vital Signs Temp 97.6 F 01/27/21 11:23 Pulse 90 01/27/21 11:23 Resp 18 01/27/21 11:23 BP 166/123 H 01/27/21 11:23 Pulse Ox 98 01/27/21 11:23 - Orders/Labs/Meds Orders: Active Orders 24 hr Category Date Time Status Holter Monitor 48 Hours [RC] .PRN Care 01/27/21 13:49 Active Sodium Chloride 0.9% [Saline Flush] Med 01/27/21 11:41 Active 10 ml FLUSH ASDIRECTED PRN Saline Lock Insert [OM.PC] Stat Oth 01/27/21 11:41 Ordered Labs: Laboratory Tests 01/27/21 01/27/21 01/27/21 Range/Units 11:29 11:29 11:29 WBC 9.93 H (4.23-9.07) K/mm3 RBC 4.95 (4.63-6.08) M/mm3 Hgb 14.3 D (13.7-17.5) gm/dl Hct 44.1 (40.1-51.0) % MCV 89.1 D (79.0-92.2) fl MCH 28.9 (25.7-32.2) pg MCHC 32.4 (32.2-35.5) g/dl RDW Std Deviation 50.3 H (35.1-43.9) fL Plt Count 205 (163-337) K/mm3 MPV 11.2 (9.4-12.3) fl Neut % (Auto) 61.8 (34.0-67.9) % Lymph % (Auto) 20.8 L (21.8-53.1) % [place] % (Auto) 11.2 (5.3-12.2) % Eos % (Auto) 5.0 (0.8-7.0) Baso % (Auto) 0.8 (0.1-1.2) % Neut # (Auto) 6.13 H (1.78-5.38) K/mm3 Lymph # (Auto) 2.07 (1.32-3.57) K/mm3 [place] # (Auto) 1.11 H (0.30-0.82) K/mm3 Eos # (Auto) 0.50 (0.04-0.54) K/mm3 Baso # (Auto) 0.08 (0.01-0.08) K/mm3 Sodium 144 (136-145) mEq/L Potassium 4.0 (3.5-5.1) mEq/L Chloride 106 (98-107) mEq/L Carbon Dioxide 28 (21-32) mEq/L Anion Gap 14.0 (5-15) BUN 29 H (7-18) mg/dL Creatinine 2.5 H (0.7-1.3) mg/dL Est Cr Clr Drug Dosing 31.23 mL/min Estimated GFR (MDRD) 26 (>60) mL/min BUN/Creatinine Ratio 11.6 L (14-18) Glucose 162 H (80-115) mg/dL Calcium 9.5 (8.5-10.1) mg/dL Magnesium 2.3 (1.8-2.4) mg/dl Total Bilirubin 0.3 (0.2-1.0) mg/dL AST 25 (15-37) U/L ALT 29 (16-63) U/L Alkaline Phosphatase 124 H (46-116) U/L Troponin I 0.018 (0.00-0.056) ng/mL C-Reactive Protein < 0.2 (<1.0) mg/dL NT-Pro-B Natriuret Pep 2655 H (0-125) pg/mL Total Protein 7.6 (6.4-8.2) g/dl Albumin 3.1 L (3.4-5.0) g/dl Globulin 4.5 gm/dL Albumin/Globulin Ratio 0.7 L (1-2) - Re-Assessments/Exams Free Text/Narrative Re-Assessment/Exam: 01/27/21 12:50 WBC 9.93, platelets are 205, sodium 144, potassium 4.0, carbon dioxide 28, BUN 29, creatinine 2.5, glucose 162, magnesium 2.3, alk phos 124, troponin 0 0.018, C-reactive protein less than 0.2, proBNP 2655, 01/27/21 13:54 Portable view of the chest radiologist impression: 1. Stable blunting of the lateral left costophrenic angle. 2. Nothing acute is appreciated on the portable chest x-ray. Cardiac work-up was essentially unremarkable. Will discharge the patient to home with a 48-hour Holter monitor. He will then need to follow-up with his primary care physician Dr. Flood at the [place] clinic early next week. Departure - Departure Time of Disposition: 13:55 Disposition: Home, Self-Care 01 Condition: Fair Clinical Impression: Episode of syncope Qualifiers: Syncope type: unspecified Qualified Code(s): R55 - Syncope and collapse Instructions: Syncope, [id number] Referrals: Mell Flood MD [Primary Care Provider] - Forms: ED Department Discharge Additional Instructions: You were seen in the emergency department today with complaints of a syncopal episode when you bending over in the shower this morning. Full cardiac work-up was completed and this was unremarkable. Chest x-ray and EKG tracing were also unremarkable. It is likely that your blood pressure dropped while you were bending over and this caused you to have a fainting episode. However with your significant cardiac history I have ordered for you to wear a Holter monitor for the next 48 hours. I would also like you to follow-up with Dr. Flood in the clinic early next week as she should have the results of this by then. Should your condition worsen or change do not hesitate to return to the emergency department. Sepsis Event Note (ED) - Evaluation Sepsis Screening Result: No Definite Risk - Focused Exam Vital Signs: Vital Signs Temp Pulse Resp BP Pulse Ox 01/27/21 11:23 97.6 F 90 18 166/123 H 98 - My Orders Last 24 Hours: My Active Orders 01/27/21 11:41 Sodium Chloride 0.9% [Saline Flush] 10 ml FLUSH ASDIRECTED PRN Saline Lock Insert [OM.PC] Stat 01/27/21 13:49 Holter Monitor 48 Hours [RC] .PRN - Assessment/Plan Last 24 Hours: My Active Orders 01/27/21 11:41 Sodium Chloride 0.9% [Saline Flush] 10 ml FLUSH ASDIRECTED PRN Saline Lock Insert [OM.PC] Stat 01/27/21 13:49 Holter Monitor 48 Hours [RC] .PRN
--- NOTE | 2021-01-27 13:06 | CR ---
Chest: Portable view of the chest was obtained. Comparison: Prior chest imaging of 11/22/20 and 08/20/20. Stable blunting of the lateral left costophrenic angle is seen. Lungs otherwise are clear. Heart size is within normal limits. Slight tortuosity of the thoracic aorta is seen. Bony structures are grossly intact. Impression: 1. Stable blunting of the lateral left costophrenic angle. 2. Nothing acute is appreciated on portable chest x-ray. Diagnostic code #2
== END 2021-01-27 14:15 | disposition home or self-care (01) ==
LOC: JD.ED 11:11
DX: R55 Syncope and collapse (principal); R07.89 Other chest pain; R06.01 Orthopnea; M79.661 Pain in right lower leg; M79.662 Pain in left lower leg; R05 Cough; I48.91 Unspecified atrial fibrillation; E78.00 Pure hypercholesterolemia, unspecified; J44.9 Chronic obstructive pulmonary disease, unspecified; K21.9 Gastro-esophageal reflux disease without esophagitis; I13.0 Hypertensive heart and chronic kidney disease with heart failure and stage 1 through stage 4 chronic kidney disease, or unspecified chronic kidney disease; E11.22 Type 2 diabetes mellitus with diabetic chronic kidney disease; N18.9 Chronic kidney disease, unspecified; I50.9 Heart failure, unspecified; E11.21 Type 2 diabetes mellitus with diabetic nephropathy; E66.9 Obesity, unspecified; Z68.35 Body mass index [BMI] 35.0-35.9, adult; Z86.16 Personal history of COVID-19; Z87.891 Personal history of nicotine dependence; Z79.01 Long term (current) use of anticoagulants; Z88.0 Allergy status to penicillin; Z88.2 Allergy status to sulfonamides; Z79.4 Long term (current) use of insulin; Z79.899 Other long term (current) drug therapy
CPT/HCPCS: 36415; 71045; 71045-26; 80053; 83735; 83880; 84484; 85025; 86140; 93005; 93010; 93225; 93226; 99284; 99284-25

== ENCOUNTER 2021-05-05 15:24 | Emergency (ER) | payer OTHER, MEDICAID ==
[2021-05-05] MEDS ORDERED: Sodium Chloride 0.9% 10 ML Syringe FLUSH PRN (15:48)
[2021-05-05] MEDS ORDERED: Sodium Chloride 0.9% 1,000 ML IV STA (16:16)
[2021-05-05] MEDS ORDERED: Ondansetron 4 MG/2 ML SDV IVPUSH ONE (16:16)
[2021-05-05] MEDS ORDERED: HYDROmorphone 0.5 MG/0.5 ML Syringe IVPUSH ONE (16:16)
--- NOTE | 2021-05-05 17:06 | EDM.PDOC ---
ED HPI GENERAL MEDICAL PROBLEM - General Chief Complaint: Diabetic Complaint Stated Complaint: HIGH BLOOD SUGAR/BP Time Seen by Provider: 05/05/21 15:30 Source of Information: Reports: Patient, RN Notes Reviewed History Limitations: Reports: No Limitations - History of Present Illness INITIAL COMMENTS - FREE TEXT/NARRATIVE: Patient is a 65-year-old male presenting to the emergency department with complaints of high blood sugar, high blood pressure, headache, intermittent chest pressure, and an open, weeping area to his left inner ankle. He reports that he has been running high blood sugars for at least the last week. Reports blood sugars have been in the 400s. He had previously been on NovoLog sliding scale, however his primary care provider discontinued this a few weeks back. He currently takes Lantus 58 units at bedtime. He reports that he developed an open, weeping area to the inner aspect of his left ankle a few days back while wearing boots at work. He reports intermittent left-sided chest pressure which he states occurs when he gets anxious. He also reports that he has a headache today which is new for him. Blood pressure upon waking this morning was 212/118. He took his blood pressure medications. Blood pressure on triage was elevated at 167/91. Vital signs were otherwise found to be normal. Bedside glucose was obtained during the triage process and found to be 500. He does state that he has felt thirsty and urinates quite frequently. Denies any nausea, vomiting, or diarrhea. He has had no fever or chills. Denies any significant shortness of breath. Patient also reports that he has had left side eye droop for a number of weeks. 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 He is scheduled for endarterectomy in the near future. He had an MRI of the brain completed on Tuesday but has not heard any results. Denies any focal neurologic deficits. Frontal Headache Pain Score (Numeric/FACES): 8 - Related Data Allergies Allergy/AdvReac Type Severity Reaction Status Date / Time Penicillins Allergy Intermediate Hives Verified 05/05/21 18:16 Sulfa (Sulfonamide Allergy Intermediate Hives Verified 05/05/21 18:16 Antibiotics) Home Meds: Home Meds Dulaglutide [Trulicity] 1.5 mg SQ SA 06/26/19 [History] Apixaban [Eliquis] 5 mg PO BID 11/27/19 [History] Sodium Bicarbonate 650 mg PO BID 11/27/19 [History] Albuterol Sulfate [Proventil Hfa] 2 puff INH Q4H PRN 02/07/20 [History] Rosuvastatin Calcium 20 mg PO BEDTIME 02/07/20 [History] carvediloL [Coreg] 25 mg PO BID #120 tablet 08/23/20 [Rx] Losartan [Cozaar] 100 mg PO BEDTIME 11/23/20 [History] Famotidine 10 mg PO BEDTIME 11/24/20 [History] Furosemide 80 mg PO DAILY 11/24/20 [History] Insulin Aspart [NovoLOG] 0 unit SUBCUT TIDAC 11/24/20 [History] Melatonin 9 mg PO BEDTIME PRN 11/24/20 [History] Nortriptyline HCl [Pamelor] 50 mg PO BEDTIME 11/24/20 [History] Sennosides/Docusate Sodium [Senna-Docusate Sodium Tablet] 2 tab PO BID PRN 11/24/20 [History] Vit B Comp No.3/Folic/C/Biotin [Nephro-Galilea Rx Tablet] 1 tab PO DAILY 11/24/20 [History] Escitalopram Oxalate 20 mg PO BEDTIME 05/05/21 [History] cephALEXin [Cephalexin] 500 mg PO Q6H 7 Days #40 capsule 05/05/21 [Rx] cloNIDine [Catapres] 0.1 mg PO BID 05/05/21 [History] dilTIAZem HCL [Diltiazem 24Hr ER] 300 mg PO DAILY 05/05/21 [History] glipiZIDE [Glucotrol] 10 mg PO BID 05/05/21 [History] Past Medical History HEENT History: Reports: Glaucoma, Hard of Hearing, Impaired Vision Other HEENT History: wears eyeglasses for driving only Cardiovascular History: Reports: Afib, Heart Failure, High Cholesterol, Hypertension Respiratory History: Reports: COPD, Sleep Apnea Other Respiratory History: hypoxemic respiratory failure, cpap at home Gastrointestinal History: Reports: Diverticulosis, GERD Genitourinary History: Reports: Chronic Renal Insuffiency, Diabetic Nephropathy Other Genitourinary History: Hx of prostate cancer. [employer] History: Reports: None Musculoskeletal History: Reports: Arthritis Neurological History: Reports: Headaches, Chronic, Migraines Psychiatric History: Reports: Anxiety, Depression, PTSD Endocrine/Metabolic History: Reports: Diabetes, Type II, Hyperthyroidism, Obesity/BMI 30+ Other Endocrine/Metabolic History: graves Hematologic History: Reports: Anticoagulation Therapy Immunologic History: Reports: None Oncologic (Cancer) History: Reports: Prostate Dermatologic History: Reports: None - Infectious Disease History Infectious Disease History: Reports: Novel Coronavirus, Other (See Below) 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 - Past Surgical History Head Surgeries/Procedures: Reports: None HEENT Surgical History: Reports: None Cardiovascular Surgical History: Reports: None Respiratory Surgical History: Reports: None GI Surgical History: Reports: Appendectomy Male Surgical History: Reports: Prostate Biopsy, Other (See Below) Other Male Surgeries/Procedures: radioactive seeds placed Endocrine Surgical History: Reports: None Neurological Surgical History: Reports: None Musculoskeletal Surgical History: Reports: Other (See Below) Other Musculoskeletal Surgeries/Procedures:: left hand surgery Oncologic Surgical History: Reports: Other (See Below) Dermatological Surgical History: Reports: None Social & Family History - Family History Family Medical History: No Pertinent Family History Cardiac: Reports: Heart Failure Respiratory: Reports: Asthma - Tobacco Use Tobacco Use Status *Q: Former Tobacco User Used Tobacco, but Quit: Yes Month/Year Tobacco Last Used: 02/2021 - Caffeine Use Caffeine Use: Reports: Coffee Other Caffeine Use: 2 cups a day,diet soda - Recreational Drug Use Recreational Drug Use: Yes Drug Use in Last 12 Months: No - Living Situation & Occupation Living situation: Reports: , Alone Occupation: Retired ED ROS GENERAL - Review of Systems Review Of Systems: See Below Constitutional: Reports: No Symptoms. Denies: Fever, Chills, Weakness HEENT: Reports: No Symptoms Respiratory: Reports: No Symptoms. Denies: Shortness of Breath, Cough Cardiovascular: Reports: Blood Pressure Problem, Other (intermittent left chest pressure). Denies: Lightheadedness, Palpitations Endocrine: Reports: High Glucose, Polydypsia, Polyuria GI/Abdominal: Reports: No Symptoms. Denies: Abdominal Pain, Diarrhea, Nausea, Vomiting Musculoskeletal: Reports: No Symptoms Skin: Reports: Other (red, weeping area to left lower leg) Neurological: Reports: Headache. Denies: Dizziness Psychiatric: Reports: No Symptoms Hematologic/Lymphatic: Reports: No Symptoms Immunologic: Reports: No Symptoms ED EXAM GENERAL NO PERIP PULSE - Physical Exam Exam: See Below Exam Limited By: No Limitations General Appearance: Alert, WD/WN, No Apparent Distress Eye Exam: Bilateral Eye: PERRL Head: Atraumatic, Normocephalic Respiratory/Chest: No Respiratory Distress, Lungs Clear, Normal Breath Sounds, No Accessory Muscle Use, Chest Non-Tender Cardiovascular: Normal Peripheral Pulses, Regular Rate, Rhythm, No Edema, No Gallop, No JVD, No Murmur, No Rub GI/Abdominal: Normal Bowel Sounds, Soft, Non-Tender, No Organomegaly, No Distention, No Abnormal Bruit, No Mass Neurological: Alert, Oriented, CN II-XII Intact, Normal Cognition, Normal Gait, Normal Reflexes, No Motor/Sensory Deficits Psychiatric: Normal Affect, Normal Mood Skin Exam: Other (5 cm area of redness and warmth with an open, weeping area in the center.) #1 Interpretation EKG Date: 05/05/21 Time: 16:19 Rhythm: A-Fib Rate (Beats/Min): 74 [place]: Normal P-Wave: Present QRS: Normal ST-T: Normal QT: Normal Course - Vital Signs Last Recorded V/S: Last Vital Signs Temp 97.3 F 05/05/21 15:47 Pulse 81 05/05/21 15:47 Resp 20 05/05/21 15:47 BP 167/91 H 05/05/21 15:47 Pulse Ox 95 05/05/21 15:47 - Orders/Labs/Meds Orders: Active Orders 24 hr Category Date Time Status Chest 1V Frontal [CR] Stat Exams 05/05/21 17:07 Taken Head wo Cont [CT] Stat Exams 05/05/21 16:14 Taken Peripheral IV Insertion Adult [OM.PC] Stat Oth 05/05/21 15:48 Ordered Labs: Laboratory Tests 05/05/21 05/05/21 05/05/21 Range/Units 15:40 16:00 16:00 WBC 8.68 (4.23-9.07) K/mm3 RBC 4.10 L (4.63-6.08) M/mm3 Hgb 12.5 L D (13.7-17.5) gm/dl Hct 37.2 L (40.1-51.0) % MCV 90.7 (79.0-92.2) fl MCH 30.5 (25.7-32.2) pg MCHC 33.6 (32.2-35.5) g/dl RDW Std Deviation 47.0 H (35.1-43.9) fL Plt Count 157 L (163-337) K/mm3 MPV 11.2 (9.4-12.3) fl Neut % (Auto) 65.2 (34.0-67.9) % Lymph % (Auto) 19.6 L (21.8-53.1) % [place] % (Auto) 11.1 (5.3-12.2) % Eos % (Auto) 2.8 (0.8-7.0) Baso % (Auto) 0.7 (0.1-1.2) % Neut # (Auto) 5.67 H (1.78-5.38) K/mm3 Lymph # (Auto) 1.70 (1.32-3.57) K/mm3 [place] # (Auto) 0.96 H (0.30-0.82) K/mm3 Eos # (Auto) 0.24 (0.04-0.54) K/mm3 Baso # (Auto) 0.06 (0.01-0.08) K/mm3 Sodium 133 L D (136-145) mEq/L Potassium 4.2 (3.5-5.1) mEq/L Chloride 97 L (98-107) mEq/L Carbon Dioxide 25 (21-32) mEq/L Anion Gap 15.2 H (5-15) BUN 44 H (7-18) mg/dL Creatinine 3.2 H (0.7-1.3) mg/dL Est Cr Clr Drug Dosing 18.25 mL/min Estimated GFR (MDRD) 20 (>60) mL/min BUN/Creatinine Ratio 13.8 L (14-18) Glucose 545 H* (70-99) mg/dL POC Glucose 500 H* (70-99) mg/dL Calcium 8.4 L (8.5-10.1) mg/dL Magnesium 2.0 (1.8-2.4) mg/dL Total Bilirubin 0.3 (0.2-1.0) mg/dL AST 22 (15-37) U/L ALT 27 (16-63) U/L Alkaline Phosphatase 112 (46-116) U/L Troponin I (0.00-0.056) ng/mL NT-Pro-B Natriuret Pep (0-125) pg/mL Total Protein 6.7 (6.4-8.2) g/dl Albumin 2.8 L (3.4-5.0) g/dl Globulin 3.9 gm/dL Albumin/Globulin Ratio 0.7 L (1-2) Urine Color (Yellow) Urine Appearance (Clear) Urine pH (5.0-8.0) Ur Specific [place] (1.005-1.030) Urine Protein (Negative) Urine Glucose (UA) (Negative) Urine Ketones (Negative) Urine Occult Blood (Negative) Urine Nitrite (Negative) Urine Bilirubin (Negative) Urine Urobilinogen (0.2-1.0) Ur Leukocyte Esterase (Negative) Urine RBC (0-5) /hpf Urine WBC (0-5) /hpf Ur Squamous Epith Cells (0-5) /hpf Urine Bacteria (FEW) /hpf Urine Mucus (FEW) /hpf Ketones (0.0-0.3) mM 05/05/21 05/05/21 05/05/21 Range/Units 16:00 16:00 16:00 WBC (4.23-9.07) K/mm3 RBC (4.63-6.08) M/mm3 Hgb (13.7-17.5) gm/dl Hct (40.1-51.0) % MCV (79.0-92.2) fl MCH (25.7-32.2) pg MCHC (32.2-35.5) g/dl RDW Std Deviation (35.1-43.9) fL Plt Count (163-337) K/mm3 MPV (9.4-12.3) fl Neut % (Auto) (34.0-67.9) % Lymph % (Auto) (21.8-53.1) % [place] % (Auto) (5.3-12.2) % Eos % (Auto) (0.8-7.0) Baso % (Auto) (0.1-1.2) % Neut # (Auto) (1.78-5.38) K/mm3 Lymph # (Auto) (1.32-3.57) K/mm3 [place] # (Auto) (0.30-0.82) K/mm3 Eos # (Auto) (0.04-0.54) K/mm3 Baso # (Auto) (0.01-0.08) K/mm3 Sodium (136-145) mEq/L Potassium (3.5-5.1) mEq/L Chloride (98-107) mEq/L Carbon Dioxide (21-32) mEq/L Anion Gap (5-15) BUN (7-18) mg/dL Creatinine (0.7-1.3) mg/dL Est Cr Clr Drug Dosing mL/min Estimated GFR (MDRD) (>60) mL/min BUN/Creatinine Ratio (14-18) Glucose (70-99) mg/dL POC Glucose (70-99) mg/dL Calcium (8.5-10.1) mg/dL Magnesium (1.8-2.4) mg/dL Total Bilirubin (0.2-1.0) mg/dL AST (15-37) U/L ALT (16-63) U/L Alkaline Phosphatase (46-116) U/L Troponin I < 0.017 (0.00-0.056) ng/mL NT-Pro-B Natriuret Pep 3019 H (0-125) pg/mL Total Protein (6.4-8.2) g/dl Albumin (3.4-5.0) g/dl Globulin gm/dL Albumin/Globulin Ratio (1-2) Urine Color (Yellow) Urine Appearance (Clear) Urine pH (5.0-8.0) Ur Specific [place] (1.005-1.030) Urine Protein (Negative) Urine Glucose (UA) (Negative) Urine Ketones (Negative) Urine Occult Blood (Negative) Urine Nitrite (Negative) Urine Bilirubin (Negative) Urine Urobilinogen (0.2-1.0) Ur Leukocyte Esterase (Negative) Urine RBC (0-5) /hpf Urine WBC (0-5) /hpf Ur Squamous Epith Cells (0-5) /hpf Urine Bacteria (FEW) /hpf Urine Mucus (FEW) /hpf Ketones 0.09 (0.0-0.3) mM 05/05/21 05/05/21 Range/Units 16:50 18:46 WBC (4.23-9.07) K/mm3 RBC (4.63-6.08) M/mm3 Hgb (13.7-17.5) gm/dl Hct (40.1-51.0) % MCV (79.0-92.2) fl MCH (25.7-32.2) pg MCHC (32.2-35.5) g/dl RDW Std Deviation (35.1-43.9) fL Plt Count (163-337) K/mm3 MPV (9.4-12.3) fl Neut % (Auto) (34.0-67.9) % Lymph % (Auto) (21.8-53.1) % [place] % (Auto) (5.3-12.2) % Eos % (Auto) (0.8-7.0) Baso % (Auto) (0.1-1.2) % Neut # (Auto) (1.78-5.38) K/mm3 Lymph # (Auto) (1.32-3.57) K/mm3 [place] # (Auto) (0.30-0.82) K/mm3 Eos # (Auto) (0.04-0.54) K/mm3 Baso # (Auto) (0.01-0.08) K/mm3 Sodium (136-145) mEq/L Potassium (3.5-5.1) mEq/L Chloride (98-107) mEq/L Carbon Dioxide (21-32) mEq/L Anion Gap (5-15) BUN (7-18) mg/dL Creatinine (0.7-1.3) mg/dL Est Cr Clr Drug Dosing mL/min Estimated GFR (MDRD) (>60) mL/min BUN/Creatinine Ratio (14-18) Glucose (70-99) mg/dL POC Glucose 231 H (70-99) mg/dL Calcium (8.5-10.1) mg/dL Magnesium (1.8-2.4) mg/dL Total Bilirubin (0.2-1.0) mg/dL AST (15-37) U/L ALT (16-63) U/L Alkaline Phosphatase (46-116) U/L Troponin I (0.00-0.056) ng/mL NT-Pro-B Natriuret Pep (0-125) pg/mL Total Protein (6.4-8.2) g/dl Albumin (3.4-5.0) g/dl Globulin gm/dL Albumin/Globulin Ratio (1-2) Urine Color Yellow (Yellow) Urine Appearance Clear (Clear) Urine pH 6.0 (5.0-8.0) Ur Specific [place] 1.025 (1.005-1.030) Urine Protein 3+ H (Negative) Urine Glucose (UA) 2+ H (Negative) Urine Ketones Negative (Negative) Urine Occult Blood Trace-lysed H (Negative) Urine Nitrite Negative (Negative) Urine Bilirubin Negative (Negative) Urine Urobilinogen 0.2 (0.2-1.0) Ur Leukocyte Esterase Negative (Negative) Urine RBC 0-5 (0-5) /hpf Urine WBC 0-5 (0-5) /hpf Ur Squamous Epith Cells 0-5 (0-5) /hpf Urine Bacteria Few (FEW) /hpf Urine Mucus Few (FEW) /hpf Ketones (0.0-0.3) mM Meds: Medications Discontinued Medications Generic Name Dose Route Start Last Admin Trade Name Freq PRN Reason Stop Dose Admin Acetaminophen 975 mg 05/05/21 17:31 05/05/21 18:02 Acetaminophen 325 Mg Tab PO 05/05/21 17:32 975 mg NOW ONE Administration Hydromorphone HCl 0.5 mg 05/05/21 16:16 05/05/21 16:28 Hydromorphone 0.5 Mg/0.5 Ml Syringe IVPUSH 05/05/21 16:17 0.5 mg ONETIME ONE Administration Sodium Chloride 1,000 mls @ 100 mls/hr 05/05/21 16:16 05/05/21 16:27 Normal Saline IV 05/06/21 02:15 100 mls/hr NOW STA Administration Insulin Human Regular 100 unit 100 mls @ 5 mls/hr 05/05/21 17:15 05/05/21 17:42 / Sodium Chloride IV 5 units/hr TITRATE LAWRENCE 5 mls/hr Administration Protocol Ceftriaxone Sodium 1 gm/ 100 mls @ 200 mls/hr 05/05/21 17:30 05/05/21 18:02 Sodium Chloride IV 05/05/21 17:59 200 mls/hr ONETIME ONE Administration Ondansetron HCl 4 mg 05/05/21 16:16 05/05/21 16:27 Ondansetron 4 Mg/2 Ml Sdv IVPUSH 05/05/21 16:17 4 mg ONETIME ONE Administration Sodium Chloride 10 ml 05/05/21 15:48 05/05/21 16:28 Sodium Chloride 0.9% 10 Ml Syringe FLUSH 10 ml ASDIRECTED PRN Administration Keep Vein Open - Re-Assessments/Exams Free Text/Narrative Re-Assessment/Exam: 05/05/21 17:27 hematology is significant for hemoglobin slightly low at 12.5, platelets 157, sodium 133, chloride 97, anion gap 15.2, BUN 44, creatinine 3.2, glucose 545, proBNP 3019. Troponin is undetectably low. Urinalysis shows no evidence of infection. He does have 2+ glucose but no ketones in his urine. Serum ketones are normal at 0.09. EKG shows atrial fibrillation at 74 with no acute ischemia. CT scan of the head shows no acute intracranial abnormalities. Chest x-ray shows no acute abnormalities. Given the patient's history of congestive heart failure and elevated proBNP, I have opted to not bolus fluids as there is no evidence of dehydration in his lab values. He has chronic kidney disease and elevation in the BUN and creatinine are similar to previous adults. I will continue fluids of NS at 100 mill per hour. I will so start a insulin drip at 5 units/h with a 5 unit bolus to bring his blood sugar down slowly. I have ordered Rocephin 1 g for treatment of mild cellulitis to the left inner leg as well as Tylenol 975 mg for discomfort to the leg as well as headache. 05/05/21 18:55 Nursing staff report patient's blood sugar has dropped to 231. We will stop the insulin drip. I would recommend that he resume his NovoLog sliding scale insulin that was previously prescribed. He does still have this available at home. He will be put on Keflex for treatment of the small area of cellulitis to his left lower leg. Recommend follow-up with primary care provider, Dr. Marquez tomorrow. Discussed return precautions. Discharge instructions as documented. Departure - Departure Time of Disposition: 19:05 Disposition: Home, Self-Care 01 Condition: Good Clinical Impression: Hyperglycemia Cellulitis Qualifiers: Site of cellulitis: extremity Site of cellulitis of extremity: lower extremity Laterality: left Qualified Code(s): L03.116 - Cellulitis of left lower limb - Discharge Information *PRESCRIPTION DRUG MONITORING PROGRAM REVIEWED*: No *COPY OF PRESCRIPTION DRUG MONITORING REPORT IN PATIENT [place]: No Prescriptions: cephALEXin [Cephalexin] 500 mg PO Q6H 7 Days #40 capsule Instructions: Cellulitis, Adult, Hyperglycemia, [id number] Referrals: Mell Flood MD [Primary Care Provider] - Forms: ED Department Discharge Additional Instructions: You were seen in the emergency department today for high blood sugar, elevated blood pressures earlier in the day, headache, and open, draining area to your left lower leg and intermittent chest pressure. Your work-up included blood work, EKG, chest x-ray, head CT, and urinalysis. Results show that your blood sugar was elevated at 500. Remainder of your blood work was consistent with your previous visits in this facility. Head CT was normal. Chest x-ray was normal, EKG showed no acute abnormalities. While in the ER, you received IV fluids, pain medications, and insulin through an IV. Your blood sugar did come down to 230. You also received first dose of antibiotics for treatment of cell ulitis of your left lower leg by IV. Prescription for Keflex has been [facility] to [facility] [address]. Take this medication as prescribed starting tomorrow morning. Recommend resuming your sliding scale NovoLog as was previously prescribed. [facility] with [facility] provider. Return to ER for any new or worsening symptoms of concern. Sepsis Event Note (ED) - Evaluation Sepsis Screening Result: No Definite Risk - Focused Exam Vital Signs: Vital Signs Temp Pulse Resp BP Pulse Ox 05/05/21 15:47 97.3 F 81 20 167/91 H 95 - My Orders Last 24 Hours: My Active Orders 05/05/21 15:48 Peripheral IV Insertion Adult [OM.PC] Stat 05/05/21 16:14 Head wo Cont [CT] Stat 05/05/21 17:07 Chest 1V Frontal [CR] Stat - Assessment/Plan Last 24 Hours: My Active Orders 05/05/21 15:48 Peripheral IV Insertion Adult [OM.PC] Stat 05/05/21 16:14 Head wo Cont [CT] Stat 05/05/21 17:07 Chest 1V Frontal [CR] Stat
[2021-05-05] MEDS ORDERED: cefTRIAXone 1 GM in Sodium Chloride 0.9% 100 ML IV ONE (17:30)
[2021-05-05] MEDS ORDERED: Acetaminophen 325 MG Tab PO ONE (17:31)
--- NOTE | 2021-05-06 07:44 | CT ---
Head CT Technique: Multiple axial sections through the brain were obtained. Intravenous contrast was not utilized. Reconstructed coronal and sagittal images were obtained. Comparison: No prior intracranial imaging is available. Findings: Ventricles along with basal cisterns and sulci over the convexities are slightly prominent. Mild areas of diminished density are noted within the periventricular white matter compatible with small vessel ischemic demyelination change. 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 No other abnormal parenchymal densities are seen. No evidence of intracranial hemorrhage. No midline shift or mass-effect is seen. Bone window settings were reviewed. No acute calvarial abnormality is appreciated. Visualized mastoid sinuses show minimal mucosal thickening inferiorly. Visualized paranasal sinuses show nothing acute. Impression: 1. Senescent change as noted above. 2. Minimal mucosal thickening within both inferior maxillary sinuses most likely chronic. 3. Nothing acute is otherwise seen on noncontrast head CT exam. Diagnostic code #2 I agree with preliminary report from [facility], finalized on 05/05/21, 5:57 PM CDT, code 1
--- NOTE | 2021-05-06 09:49 | CR ---
Chest: Portable view of the chest was obtained. Comparison: Prior chest x-ray on 01/27/21. Heart size and mediastinum are within normal limits. Blunting of the lateral left costophrenic angle is seen which is stable from prior chest x-ray. Lungs otherwise are clear. No acute osseous abnormality is appreciated. Impression: 1. Stable blunting of the lateral left costophrenic angle from prior chest x-ray. 2. Nothing acute is otherwise seen. Diagnostic code #2
== END 2021-05-05 19:17 | disposition home or self-care (01) ==
LOC: JD.ED 15:24
DX: E11.65 Type 2 diabetes mellitus with hyperglycemia (principal); L03.116 Cellulitis of left lower limb; E66.9 Obesity, unspecified; I13.0 Hypertensive heart and chronic kidney disease with heart failure and stage 1 through stage 4 chronic kidney disease, or unspecified chronic kidney disease; I50.9 Heart failure, unspecified; N18.9 Chronic kidney disease, unspecified; E11.22 Type 2 diabetes mellitus with diabetic chronic kidney disease; I48.91 Unspecified atrial fibrillation; E78.00 Pure hypercholesterolemia, unspecified; I11.0 Hypertensive heart disease with heart failure; J44.9 Chronic obstructive pulmonary disease, unspecified; E05.90 Thyrotoxicosis, unspecified without thyrotoxic crisis or storm; Z79.01 Long term (current) use of anticoagulants; Z79.4 Long term (current) use of insulin; Z79.899 Other long term (current) drug therapy; Z68.42 Body mass index [BMI] 45.0-49.9, adult
CPT/HCPCS: 36415; 70450; 71045; 80053; 81001; 82009; 82947; 83735; 83880; 84484; 85025; 93005; 96365; 96375; 99285; A9270; J0696; J1170; J1815; J2405; J7030; 93010; 99284

== ENCOUNTER 2021-08-07 11:36 | Emergency (ER) | payer OTHER, MEDICAID ==
[2021-08-07] MEDS ORDERED: Sodium Chloride 0.9% 10 ML Syringe FLUSH PRN (12:30)
[2021-08-07] MEDS ORDERED: Acetaminophen 325 MG Tab PO ONE (12:32)
--- NOTE | 2021-08-07 13:07 | EDM.PDOC ---
ED HPI GENERAL MEDICAL PROBLEM - General Chief Complaint: Respiratory Problem Stated Complaint: SWELLING OF ABDOMEN AND LEGS Time Seen by Provider: 08/07/21 11:58 Source of Information: Reports: Patient History Limitations: Reports: No Limitations - History of Present Illness INITIAL COMMENTS - FREE TEXT/NARRATIVE: 65-year-old male presents the emergency department with increased shortness of breath, wheezing, increased edema to his bilateral lower extremities and ascites. He states this started about 2 weeks ago. He states he normally takes an albuterol puffer however he ran out and it has not been sent to him as he is a [facility] and has his medications sent in the mail. He states that he was recently changed from furosemide 80 mg daily to Bumex 2 mg daily on July 14, 2021. He states that his kidneys were "failing". He does have a significant medical history of CHF, atrial fibrillation and is chronically anticoagulated, insulin-dependent diabetes, chronic renal disease, and COPD. He does have a history of smoking 2 to 2-1/2 packs a day however states he quit about 5 months ago. He also reports having Covid this last spring however he does not know the exact date. He has not had his Covid vaccines. States he was tested for Covid at the [facility] 2 days ago and they called him today and told him it was negative. Patient states the swelling in his legs is quite painful and he also complains of a headache today. Bilateral Lower Thigh Pain Score (Numeric/FACES): 6 Bilateral Lower Leg Pain Score (Numeric/FACES): 2 - Related Data Allergies Allergy/AdvReac Type Severity Reaction Status Date / Time Penicillins Allergy Intermediate Hives Verified 05/05/21 18:16 Sulfa (Sulfonamide Allergy Intermediate Hives Verified 05/05/21 18:16 Antibiotics) Home Meds: Home Meds Rosuvastatin Calcium 20 mg PO BEDTIME 02/07/20 [History] Losartan [Cozaar] 100 mg PO BEDTIME 11/23/20 [History] Famotidine 10 mg PO BEDTIME 11/24/20 [History] Nortriptyline HCl [Pamelor] 50 mg PO BEDTIME 11/24/20 [History] Escitalopram Oxalate 20 mg PO BEDTIME 05/05/21 [History] dilTIAZem HCL [Diltiazem 24Hr ER] 300 mg PO DAILY 05/05/21 [History] Bumetanide [Bumex] 2 mg PO DAILY 08/07/21 [History] Insulin Glarg,Human.Rec.Analog [Lantus] 65 unit SQ DAILY 08/07/21 [History] Sildenafil Citrate [Viagra] 50 mg PO BEDTIME PRN 08/07/21 [History] traZODone HCl [Trazodone HCl] 50 mg PO BEDTIME 08/07/21 [History] Past Medical History HEENT History: Reports: Glaucoma, Hard of Hearing, Impaired Vision Other HEENT History: wears eyeglasses for driving only Cardiovascular History: Reports: Afib, Heart Failure, High Cholesterol, Hypertension Other Cardiovascular History: Pt reports third degree heart block hx Respiratory History: Reports: COPD, Sleep Apnea Other Respiratory History: hypoxemic respiratory failure, cpap at home Gastrointestinal History: Reports: Diverticulosis, GERD Genitourinary History: Reports: Chronic Renal Insuffiency, Diabetic Nephropathy Other Genitourinary History: Hx of prostate cancer. ELECTRONICS TEACHER History: Reports: None Musculoskeletal History: Reports: Arthritis Neurological History: Reports: Headaches, Chronic, Migraines Psychiatric History: Reports: Anxiety, Depression, PTSD Endocrine/Metabolic History: Reports: Diabetes, Type II, Hyperthyroidism, Obesity/BMI 30+ Other Endocrine/Metabolic History: graves Hematologic History: Reports: Anticoagulation Therapy Immunologic History: Reports: None Oncologic (Cancer) History: Reports: Prostate Dermatologic History: Reports: None - Infectious Disease History Infectious Disease History: Reports: Novel Coronavirus, Other (See Below) 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 - Past Surgical History Head Surgeries/Procedures: Reports: None HEENT Surgical History: Reports: None Cardiovascular Surgical History: Reports: None Respiratory Surgical History: Reports: None GI Surgical History: Reports: Appendectomy Male Surgical History: Reports: Prostate Biopsy, Other (See Below) Other Male Surgeries/Procedures: radioactive seeds placed Endocrine Surgical History: Reports: None Neurological Surgical History: Reports: None Musculoskeletal Surgical History: Reports: Other (See Below) Other Musculoskeletal Surgeries/Procedures:: left hand surgery Oncologic Surgical History: Reports: Other (See Below) Dermatological Surgical History: Reports: None Social & Family History - Family History Family Medical History: No Pertinent Family History Cardiac: Reports: Heart Failure Respiratory: Reports: Asthma - Tobacco Use Tobacco Use Status *Q: Former Tobacco User Years of Tobacco use: 40 Used Tobacco, but Quit: Yes Month/Year Tobacco Last Used: 03/2021 - Caffeine Use Caffeine Use: Reports: Coffee Other Caffeine Use: 2 cups a day,diet soda Caffeine Use Comment: 2 cups per day - Recreational Drug Use Recreational Drug Use: No - Living Situation & Occupation Living situation: Reports: , Alone Occupation: Retired ED ROS GENERAL - Review of Systems Review Of Systems: Comprehensive ROS is negative, except as noted in HPI. ED EXAM, GENERAL - Physical Exam Exam: See Below Exam Limited By: No Limitations General Appearance: Alert, WD/WN, Mild Distress Ears: Normal External Exam, Hearing Grossly Normal Nose: Normal Inspection Throat/Mouth: Normal Inspection, Normal Lips, Normal Voice, No Airway Compromise Head: Atraumatic Neck: Normal Inspection, Supple Respiratory/Chest: No Accessory Muscle Use, Chest Non-Tender, Respiratory Distress (Mild), Wheezing (Fine expiratory wheeze noted posteriorly). No: Lungs Clear Cardiovascular: Normal Peripheral Pulses, No Murmur, Irregularly Irregular. No: No Edema (2+ pitting) Peripheral Pulses: 2+: Radial (L), Radial (R) GI/Abdominal: Normal Bowel Sounds, Soft, Non-Tender, No Distention (Male) Exam: Deferred Rectal (Males) Exam: Deferred Back Exam: Normal Inspection, Full Range of Motion Extremities: Normal Inspection, Normal Range of Motion, Non-Tender, No Pedal Edema, Normal Capillary Refill Neurological: Alert, Oriented, Normal Cognition Psychiatric: Normal Affect, Normal Mood Skin Exam: Warm, Dry, Intact, Normal Color, No Rash Lymphatic: No Adenopathy #1 Interpretation EKG Date: 08/07/21 Time: 13:05 Rhythm: A-Fib Rate (Beats/Min): 69 P-Wave: Absent QRS: Normal ST-T: Normal QT: Normal EKG Interpretation Comments: Per Dr. Pollard interpretation: Atrial fib with a rate of 40 to 84 bpm; T wave flattening leads I and aVL; early R wave transitionconsider RVH/septal hypertrophy; QTC is mildly prolonged Course - Vital Signs Text/Narrative:: As stated above, patient presents with increased shortness of breath, wheezing, ascites and increased edema to the bilateral lower extremities. States he was also tested for Covid 2 days ago and was reported back negative to him today. Upon exam, the patient does have fine expiratory wheezes noted posteriorly. He is mildly dyspneic at rest however his O2 saturations are 94% at the time of my assessment and he is mildly tachypneic. He is otherwise hemodynamically stable. He does have ascites noted in his abdomen is firm. 2+ pitting edema noted to bilateral lower extremities. Skin is very taut and painful with minimal palpation. I have ordered an EKG, labs to include a CBC, CMP, magnesium, troponin, proBNP and a portable chest x-ray. We will also order Tylenol 975 mg to treat headache and discomfort of his lower extremities. We will also order an albuterol nebulizer treatment for the patient. Last Recorded V/S: Last Vital Signs Temp 96.2 F L 08/07/21 11:46 Pulse 68 08/07/21 13:50 Resp 20 08/07/21 13:50 BP 175/98 H 08/07/21 13:50 Pulse Ox 96 08/07/21 13:50 - Orders/Labs/Meds Orders: Active Orders 24 hr Category Date Time Status RT Aerosol Therapy [RC] ASDIRECTED Care 08/07/21 13:29 Active Sodium Chloride 0.9% [Saline Flush] Med 08/07/21 12:30 Active 10 ml FLUSH ASDIRECTED PRN Saline Lock Insert [OM.PC] Stat Oth 08/07/21 12:30 Ordered Medication Orders Sodium Chloride (Sodium Chloride 0.9% 10 Ml Syringe) 10 ml FLUSH ASDIRECTED PRN PRN Reason: Keep Vein Open Labs: Laboratory Tests 08/07/21 08/07/21 08/07/21 Range/Units 12:55 12:55 12:55 WBC 8.83 (4.23-9.07) K/mm3 RBC 3.59 L (4.63-6.08) M/mm3 Hgb 11.3 L (13.7-17.5) gm/dl Hct 35.2 L (40.1-51.0) % MCV 98.1 H D (79.0-92.2) fl MCH 31.5 (25.7-32.2) pg MCHC 32.1 L (32.2-35.5) g/dl RDW Std Deviation 52.7 H (35.1-43.9) fL Plt Count 206 (163-337) K/mm3 MPV 10.9 (9.4-12.3) fl Neut % (Auto) 67.3 (34.0-67.9) % Lymph % (Auto) 17.3 L (21.8-53.1) % Walsh % (Auto) 10.4 (5.3-12.2) % Eos % (Auto) 3.6 (0.8-7.0) Baso % (Auto) 0.8 (0.1-1.2) % Neut # (Auto) 5.94 H (1.78-5.38) K/mm3 Lymph # (Auto) 1.53 (1.32-3.57) K/mm3 Walsh # (Auto) 0.92 H (0.30-0.82) K/mm3 Eos # (Auto) 0.32 (0.04-0.54) K/mm3 Baso # (Auto) 0.07 (0.01-0.08) K/mm3 Sodium 139 (136-145) mEq/L Potassium 4.7 (3.5-5.1) mEq/L Chloride 105 (98-107) mEq/L Carbon Dioxide 29 (21-32) mEq/L Anion Gap 9.7 (5-15) BUN 36 H (7-18) mg/dL Creatinine 3.5 H (0.7-1.3) mg/dL Est Cr Clr Drug Dosing 22.31 mL/min Estimated GFR (MDRD) 18 (>60) mL/min BUN/Creatinine Ratio 10.3 L (14-18) Glucose 347 H (70-99) mg/dL Calcium 8.4 L (8.5-10.1) mg/dL Magnesium 2.3 (1.8-2.4) mg/dL Total Bilirubin 0.5 (0.2-1.0) mg/dL AST 15 (15-37) U/L ALT 25 (16-63) U/L Alkaline Phosphatase 129 H (46-116) U/L Troponin I < 0.017 (0.00-0.056) ng/mL C-Reactive Protein 0.9 (<1.0) mg/dL NT-Pro-B Natriuret Pep 4019 H (0-125) pg/mL Total Protein 6.9 (6.4-8.2) g/dl Albumin 2.8 L (3.4-5.0) g/dl Globulin 4.1 gm/dL Albumin/Globulin Ratio 0.7 L (1-2) Meds: Medications Generic Name Dose Route Start Last Admin Trade Name Freq PRN Reason Stop Dose Admin Sodium Chloride 10 ml 08/07/21 12:30 Sodium Chloride 0.9% 10 Ml Syringe FLUSH ASDIRECTED PRN Keep Vein Open Discontinued Medications Generic Name Dose Route Start Last Admin Trade Name Freq PRN Reason Stop Dose Admin Acetaminophen 975 mg 08/07/21 12:32 08/07/21 12:41 Acetaminophen 325 Mg Tab PO 08/07/21 12:33 975 mg NOW ONE Administration Albuterol 2.5 mg 08/07/21 13:28 08/07/21 13:39 Albuterol 0.083% 2.5 Mg/3 Ml Neb Soln NEB 08/07/21 13:29 2.5 mg ONETIME ONE Administration - Re-Assessments/Exams Free Text/Narrative Re-Assessment/Exam: 08/07/21 13:47 Radiologist impression portable view of the chest: Slight blunting of the left lateral costophrenic angle is seen which is stable. Lung markings are slightly increased which are believed to be stable from prior exam when allowing for differences in technique. Heart size is within normal limits. Upper mediastinum is within normal limits. 08/07/21 15:00 Hematology reveals a WBC of 8.83, hemoglobin 11.3, hematocrit 35.2, platelet count 206 Chemistry reveals a sodium of 139, potassium 4.7, anion gap 9.7, BUN 36, creatinine 3.5, GFR 18, glucose 347, magnesium 2.3, alk phos 129, troponin less than 0.017, proBNP [address] this case with Dr. Pollard, and he does not recommend that I treat the patient with any further diuretics as his kidney function is already significantly decreased. Patient will likely need to follow-up with the [facility] for nephrology consult. I discussed the results with the patient and he tells me that he currently sees a cloud automation tester and a drilling foreman. He states that nephrology is recommending dialysis however he has not wanting that at this time. He states he is very frustrated with the [facility] and would like to go see Laverne Cali who he was seeing prior to switching to the [facility]. He will be discharged home with recommendations that he wear his GRAY stockings that he already has at home as well as continue taking all of his regular medications and follow-up with Laverne Cali this week at the clinic. Departure - Departure Time of Disposition: 15:03 Disposition: Home, Self-Care 01 Condition: Fair Clinical Impression: Chronic renal insufficiency Qualifiers: Chronic kidney disease stage: stage 4 (severe) Qualified Code(s): N18.4 - Chronic kidney disease, stage 4 (severe) - Discharge Information Instructions: Chronic Kidney Disease, Adult, [id number] Referrals: Mell Flood MD [Primary Care Provider] - Roxie Alfaro NP [Nurse Practitioner] - Forms: ED Department Discharge Additional Instructions: You were seen in the emergency department today with complaints of wheezing, increased shortness of breath, abdominal distention and increased swelling to your lower extremities. Chest x-ray was completed which was essentially unremarkable. You did however receive an albuterol nebulizer which helped for a short bit. Labs were completed which did show you have fairly significant kidney disease. At this time you are already taking Bumex medication to diurese and get rid of fluid in your body however due to your kidney disease it is contra indicated to give you any further diuretic. You will need to follow-up with a cloud automation tester and you state that you are currently seeing 1. Recommend that you follow-up with your primary care provider, Laverne Cali in the clinic this week for further evaluation and referral to nephrology. Also recommend that you begin wearing her GRAY stockings/compression stockings during the day and elevate the legs at night. Sepsis Event Note (ED) - Evaluation Sepsis Screening Result: No Definite Risk - Focused Exam Vital Signs: Vital Signs Temp Pulse Resp BP Pulse Ox Pulse Ox 08/07/21 13:50 68 20 175/98 H 96 08/07/21 13:29 95 08/07/21 11:46 96.2 F L 29 H 138/87 92 L - My Orders Last 24 Hours: My Active Orders 08/07/21 12:30 Sodium Chloride 0.9% [Saline Flush] 10 ml FLUSH ASDIRECTED PRN Saline Lock Insert [OM.PC] Stat 08/07/21 13:29 RT Aerosol Therapy [RC] ASDIRECTED - Assessment/Plan Last 24 Hours: My Active Orders 08/07/21 12:30 Sodium Chloride 0.9% [Saline Flush] 10 ml FLUSH ASDIRECTED PRN Saline Lock Insert [OM.PC] Stat 08/07/21 13:29 RT Aerosol Therapy [RC] ASDIRECTED
[2021-08-07] MEDS ORDERED: Albuterol 0.083% 2.5 MG/3 ML Neb Soln NEB ONE (13:28)
--- NOTE | 2021-08-07 13:33 | CR ---
Chest: Portable view of the chest was obtained. Comparison: Prior chest x-ray of 05/05/21. Slight blunting of the left lateral costophrenic angle is seen which is stable. Lung markings are slightly increased which are believed to be stable from prior exam when allowing for differences in technique. Heart size is within normal limits. Upper mediastinum is within normal limits. Impression: 1. Findings as described above felt to be stable. 2. Nothing acute is definitely appreciated on portable chest x-ray. Diagnostic code #2
== END 2021-08-07 15:30 | disposition home or self-care (01) ==
LOC: JD.ED 11:36
DX: I13.0 Hypertensive heart and chronic kidney disease with heart failure and stage 1 through stage 4 chronic kidney disease, or unspecified chronic kidney disease (principal); E11.21 Type 2 diabetes mellitus with diabetic nephropathy; E11.22 Type 2 diabetes mellitus with diabetic chronic kidney disease; N18.4 Chronic kidney disease, stage 4 (severe); I50.9 Heart failure, unspecified; I48.91 Unspecified atrial fibrillation; E78.00 Pure hypercholesterolemia, unspecified; E03.9 Hypothyroidism, unspecified; J44.9 Chronic obstructive pulmonary disease, unspecified; E66.9 Obesity, unspecified; Z68.36 Body mass index [BMI] 36.0-36.9, adult; Z88.0 Allergy status to penicillin; Z88.2 Allergy status to sulfonamides; Z79.4 Long term (current) use of insulin; Z79.899 Other long term (current) drug therapy; Z87.891 Personal history of nicotine dependence
CPT/HCPCS: 36415; 71045; 80053; 83735; 83880; 84484; 85025; 86140; 93005; 94640; 99285; A9270; 93010; 99284

== ENCOUNTER 2021-09-24 10:42 | Emergency (ER) | payer MEDICAID, OTHER ==
[2021-09-24] MEDS ORDERED: Furosemide 40 MG/4 ML VIAL IVPUSH ONE (11:13)
[2021-09-24] MEDS: Sodium Chloride 0.9% 10 ML Syringe FLUSH PRN ×2 (11:17→11:42)
[2021-09-24] MEDS ORDERED: Morphine 4 MG/ML Syringe IVPUSH ONE ×2 (11:49→17:16)
--- NOTE | 2021-09-24 11:52 | EDM.PDOC ---
ED HPI GENERAL MEDICAL PROBLEM - General Chief Complaint: Chest Pain Stated Complaint: CHEST PAIN Time Seen by Provider: 09/24/21 10:54 Source of Information: Reports: Patient, RN Notes Reviewed - History of Present Illness INITIAL COMMENTS - FREE TEXT/NARRATIVE: 66 yr old male comes in with chest pain, difficulty breathing. This started about 3 days ago, worse today. His legs have been getting more swollen, he feels tht his abd is much more distended than usual. States his wt is up about 20 lbs from baseline. Not coughing, no recent fever or chills. Dyspnea worse with walking and has orthopnea. States he had a prolonged admission for covid pneumonia about 5 months ago. Hx of chronic a fib. on eliquis, chronic Htn, CHF, renal insufficiency, diabetes. Chest Pain Score (Numeric/FACES): 7 - Related Data Allergies Allergy/AdvReac Type Severity Reaction Status Date / Time Penicillins Allergy Intermediate Hives Verified 09/24/21 11:00 Sulfa (Sulfonamide Allergy Intermediate Hives Verified 09/24/21 11:00 Antibiotics) Home Meds: Home Meds Rosuvastatin Calcium 20 mg PO BEDTIME 02/07/20 [History] Losartan [Cozaar] 100 mg PO BEDTIME 11/23/20 [History] Famotidine 10 mg PO BEDTIME 11/24/20 [History] Nortriptyline HCl [Pamelor] 50 mg PO BEDTIME 11/24/20 [History] Escitalopram Oxalate 20 mg PO BEDTIME 05/05/21 [History] dilTIAZem HCL [Diltiazem 24Hr ER] 300 mg PO DAILY 05/05/21 [History] Bumetanide [Bumex] 2 mg PO DAILY 08/07/21 [History] Insulin Glarg,Human.Rec.Analog [Lantus] 65 unit SQ DAILY 08/07/21 [History] Sildenafil Citrate [Viagra] 50 mg PO BEDTIME PRN 08/07/21 [History] traZODone HCl [Trazodone HCl] 50 mg PO BEDTIME 08/07/21 [History] Past Medical History HEENT History: Reports: Glaucoma, Hard of Hearing, Impaired Vision Other HEENT History: wears eyeglasses for driving only Cardiovascular History: Reports: Afib, Heart Failure, High Cholesterol, Hypertension Other Cardiovascular History: Pt reports third degree heart block hx Respiratory History: Reports: COPD, Sleep Apnea Other Respiratory History: hypoxemic respiratory failure, cpap at home Gastrointestinal History: Reports: Diverticulosis, GERD Genitourinary History: Reports: Chronic Renal Insuffiency, Diabetic Nephropathy Other Genitourinary History: Hx of prostate cancer. ORTHOPEDIC NURSE History: Reports: None Musculoskeletal History: Reports: Arthritis Neurological History: Reports: Headaches, Chronic, Migraines Psychiatric History: Reports: Anxiety, Depression, PTSD Endocrine/Metabolic History: Reports: Diabetes, Type II, Hyperthyroidism, Obesity/BMI 30+ Other Endocrine/Metabolic History: graves Hematologic History: Reports: Anticoagulation Therapy Immunologic History: Reports: None Oncologic (Cancer) History: Reports: Prostate Dermatologic History: Reports: None - Infectious Disease History Infectious Disease History: Reports: Novel Coronavirus, Other (See Below) 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 - Past Surgical History Head Surgeries/Procedures: Reports: None HEENT Surgical History: Reports: None Cardiovascular Surgical History: Reports: None Respiratory Surgical History: Reports: None GI Surgical History: Reports: Appendectomy Male Surgical History: Reports: Prostate Biopsy, Other (See Below) Other Male Surgeries/Procedures: radioactive seeds placed Endocrine Surgical History: Reports: None Neurological Surgical History: Reports: None Musculoskeletal Surgical History: Reports: Other (See Below) Other Musculoskeletal Surgeries/Procedures:: left hand surgery Oncologic Surgical History: Reports: Other (See Below) Dermatological Surgical History: Reports: None Social & Family History - Family History Family Medical History: No Pertinent Family History Cardiac: Reports: Heart Failure Respiratory: Reports: Asthma - Tobacco Use Tobacco Use Status *Q: Never Tobacco User - Caffeine Use Caffeine Use: Reports: Coffee Other Caffeine Use: 2 cups a day,diet soda Caffeine Use Comment: 2 cups per day - Living Situation & Occupation Living situation: Reports: , Alone Occupation: Retired ED ROS GENERAL - Review of Systems Review Of Systems: See Below Constitutional: Denies: Fever, Chills, Diaphoresis Respiratory: Reports: Shortness of Breath Cardiovascular: Reports: Chest Pain GI/Abdominal: Denies: Abdominal Pain, Nausea, Vomiting Musculoskeletal: Denies: Shoulder Pain, Arm Pain, Back Pain Skin: Reports: No Symptoms Neurological: Reports: No Symptoms ED EXAM, GENERAL - Physical Exam Exam: See Below General Appearance: Alert, Anxious, Mild Distress Throat/Mouth: Normal Inspection Head: Atraumatic Neck: Supple, Other (No JVD) Respiratory/Chest: Respiratory Distress (mild tachypnea), Rales (mild, both bases). No: Rhonchi, Wheezing Cardiovascular: Regular Rate, Rhythm GI/Abdominal: Distended, Tender (mild diffuse tenderness) Extremities: Pedal Edema (moderate bilat) Neurological: Alert, Oriented Skin Exam: Warm, Dry, Normal Color #1 Interpretation EKG Date: 09/24/21 Rhythm: A-Fib [place]: Normal P-Wave: Absent QRS: Normal ST-T: Other (very mild nonspecific st changes inf. leads) Course - Vital Signs Last Recorded V/S: Last Vital Signs Temp 97.4 F 09/24/21 10:57 Pulse 84 09/24/21 16:12 Resp 20 09/24/21 13:53 BP 164/101 H 09/24/21 16:12 Pulse Ox 91 L 09/24/21 13:53 - Orders/Labs/Meds Orders: Active Orders 24 hr Category Date Time Status Peripheral IV Care [RC] . DIRECTED Care 09/24/21 11:13 Active Nitroglycerin/D5W [Nitroglycerin 25 MG/D5W 250 ML] Med 09/24/21 13:45 Active 25 mg in 250 ml IV TITRATE Sodium Chloride 0.9% [Saline Flush] Med 09/24/21 11:13 Active 10 ml FLUSH ASDIRECTED PRN Peripheral IV Insertion Adult [OM.PC] Stat Oth 09/24/21 11:12 Ordered Medication Orders Nitroglycerin/Dextrose (Nitroglycerin 25 Mg/D5w 250 Ml) 25 mg in 250 mls @ 3 mls/hr IV TITRATE [facility]; Protocol Last Titration: 09/24/21 14:40 Dose: 10 mcg/min, 6 mls/hr Documented by: Admin: 09/24/21 13:52 Dose: 5 mcg/min, 3 mls/hr Documented by: LETICIA Sodium Chloride (Sodium Chloride 0.9% 10 Ml Syringe) 10 ml FLUSH ASDIRECTED PRN PRN Reason: Keep Vein Open Last Admin: 09/24/21 11:42 Dose: 10 ml Documented by: Admin: 09/24/21 11:17 Dose: 10 ml Documented by: KINDRA Labs: Laboratory Tests 09/24/21 09/24/21 09/24/21 Range/Units 11:15 11:15 11:51 WBC 11.31 H (4.23-9.07) K/mm3 RBC 3.87 L (4.63-6.08) M/mm3 Hgb 12.0 L (13.7-17.5) gm/dl Hct 38.1 L (40.1-51.0) % MCV 98.4 H (79.0-92.2) fl MCH 31.0 (25.7-32.2) pg MCHC 31.5 L (32.2-35.5) g/dl RDW Std Deviation 50.8 H (35.1-43.9) fL Plt Count 201 (163-337) K/mm3 MPV 10.7 (9.4-12.3) fl Neut % (Auto) 73.0 H (34.0-67.9) % Lymph % (Auto) 13.9 L (21.8-53.1) % [place] % (Auto) 10.1 (5.3-12.2) % Eos % (Auto) 2.0 (0.8-7.0) Baso % (Auto) 0.5 (0.1-1.2) % Neut # (Auto) 8.25 H (1.78-5.38) K/mm3 Lymph # (Auto) 1.57 (1.32-3.57) K/mm3 [place] # (Auto) 1.14 H (0.30-0.82) K/mm3 Eos # (Auto) 0.23 (0.04-0.54) K/mm3 Baso # (Auto) 0.06 (0.01-0.08) K/mm3 Sodium 140 (136-145) mEq/L Potassium 4.8 (3.5-5.1) mEq/L Chloride 105 (98-107) mEq/L Carbon Dioxide 25 (21-32) mEq/L Anion Gap 14.8 (5-15) BUN 42 H (7-18) mg/dL Creatinine 3.9 H (0.7-1.3) mg/dL Est Cr Clr Drug Dosing TNP Estimated GFR (MDRD) 16 (>60) mL/min BUN/Creatinine Ratio 10.8 L (14-18) Glucose 269 H (70-99) mg/dL Calcium 9.0 (8.5-10.1) mg/dL Total Bilirubin 0.4 (0.2-1.0) mg/dL AST 20 (15-37) U/L ALT 29 (16-63) U/L Alkaline Phosphatase 111 (46-116) U/L Troponin I < 0.017 (0.00-0.056) ng/mL NT-Pro-B Natriuret Pep 2196 H (0-125) pg/mL Total Protein 6.7 (6.4-8.2) g/dl Albumin 3.3 L (3.4-5.0) g/dl Globulin 3.4 gm/dL Albumin/Globulin Ratio 1.0 (1-2) SARS-CoV-2 RNA ([facility]) (NEGATIVE) 09/24/21 09/24/21 Range/Units 13:26 15:36 WBC (4.23-9.07) K/mm3 RBC (4.63-6.08) M/mm3 Hgb (13.7-17.5) gm/dl Hct (40.1-51.0) % MCV (79.0-92.2) fl MCH (25.7-32.2) pg MCHC (32.2-35.5) g/dl RDW Std Deviation (35.1-43.9) fL Plt Count (163-337) K/mm3 MPV (9.4-12.3) fl Neut % (Auto) (34.0-67.9) % Lymph % (Auto) (21.8-53.1) % [place] % (Auto) (5.3-12.2) % Eos % (Auto) (0.8-7.0) Baso % (Auto) (0.1-1.2) % Neut # (Auto) (1.78-5.38) K/mm3 Lymph # (Auto) (1.32-3.57) K/mm3 [place] # (Auto) (0.30-0.82) K/mm3 Eos # (Auto) (0.04-0.54) K/mm3 Baso # (Auto) (0.01-0.08) K/mm3 Sodium (136-145) mEq/L Potassium (3.5-5.1) mEq/L Chloride (98-107) mEq/L Carbon Dioxide (21-32) mEq/L Anion Gap (5-15) BUN (7-18) mg/dL Creatinine (0.7-1.3) mg/dL Est Cr Clr Drug Dosing Estimated GFR (MDRD) (>60) mL/min BUN/Creatinine Ratio (14-18) Glucose (70-99) mg/dL Calcium (8.5-10.1) mg/dL Total Bilirubin (0.2-1.0) mg/dL AST (15-37) U/L ALT (16-63) U/L Alkaline Phosphatase (46-116) U/L Troponin I < 0.017 (0.00-0.056) ng/mL NT-Pro-B Natriuret Pep (0-125) pg/mL Total Protein (6.4-8.2) g/dl Albumin (3.4-5.0) g/dl Globulin gm/dL Albumin/Globulin Ratio (1-2) SARS-CoV-2 RNA ([place]) Negative (NEGATIVE) Meds: Medications Generic Name Dose Route Start Last Admin Trade Name Freq PRN Reason Stop Dose Admin Nitroglycerin/Dextrose 25 mg in 250 mls @ 3 mls/hr 09/24/21 13:45 09/24/21 14:40 Nitroglycerin 25 Mg/D5w 250 Ml IV 10 mcg/min TITRATE [facility] 6 mls/hr Titration Protocol 5 MCG/MIN Sodium Chloride 10 ml 09/24/21 11:13 09/24/21 11:42 Sodium Chloride 0.9% 10 Ml Syringe FLUSH 10 ml ASDIRECTED PRN Administration Keep Vein Open Discontinued Medications Generic Name Dose Route Start Last Admin Trade Name Freq PRN Reason Stop Dose Admin Amlodipine Besylate 5 mg 09/24/21 14:43 09/24/21 16:12 Amlodipine 5 Mg Tab PO 09/24/21 14:44 5 mg ONETIME ONE Administration Carvedilol 12.5 mg 09/24/21 14:42 09/24/21 16:12 Carvedilol 12.5 Mg Tab PO 09/24/21 14:43 12.5 mg ONETIME ONE Administration Furosemide 40 mg 09/24/21 11:13 09/24/21 11:41 Furosemide 40 Mg/4 Ml Vial IVPUSH 09/24/21 11:14 40 mg NOW ONE Administration Labetalol HCl 20 mg 09/24/21 13:24 09/24/21 13:33 Labetalol 100 Mg/20 Ml Mdv IVPUSH 09/24/21 13:25 20 mg ONETIME ONE Administration Protocol Morphine Sulfate 4 mg 09/24/21 11:49 09/24/21 11:57 Morphine 4 Mg/Ml Syringe IVPUSH 09/24/21 11:50 4 mg ONETIME ONE Administration Morphine Sulfate 4 mg 09/24/21 17:16 09/24/21 17:49 Morphine 4 Mg/Ml Syringe IVPUSH 09/24/21 17:17 4 mg ONETIME ONE Administration - Re-Assessments/Exams Free Text/Narrative Re-Assessment/Exam: 09/24/21 12:06 CXR shows cardiomegally, mild to moderate pul. congestion. Have given lasix 40 mg IV. 09/24/21 13:22. trop nl, however creatnine is 3.9 with last reading of 3.5 about 6 weeks ago, 2.6 last spring. He has voided quite a lot after the IV lasix. He was given morphine 4 mg IV for chest pain and Htn about an hr ago. BP has not come down with reading a few minutes ago 212/116. Have ordered labetolol 20 mg IV. Have discussed with Dr Leger. He wants me to try transfer to higher level of care, where Cardiology and Nephrology available. 09/24/21 14:43. Have discussed with Dr Man, [facility], [facility]. He states he can be transferred direct admit to Hospitalist. Advises give Carvidelol 12.5 mg PO. 09/24/21 15:00. Dr with Dr Casiano, Hospitalist that does accept pt for direct admit. 09/24/21 18:05. Have given 1 further dose morphine 4 mg IV for chest discomfort. Repeat trop still neg. at .017. BP is down to 161/94. Still waiting to hear from [facility] as to when they have bed ready to take patient. Departure - Departure Time of Disposition: 13:39 Disposition: DC/Tfer to [facility] 02 Reason for Transfer *Q: Other Condition: Serious Clinical Impression: Atypical chest pain, Renal insufficiency, Hypertensive urgency CHF (congestive heart failure) Qualifiers: Heart failure type: unspecified Heart failure chronicity: acute Qualified Code(s): I50.9 - Heart failure, unspecified Atrial fibrillation Qualifiers: Atrial fibrillation type: unspecified chronic Qualified Code(s): I48.20 - Chronic atrial fibrillation, unspecified Referrals: PCP,None [Ordering Only Provider] - Forms: ED Department Discharge Sepsis Event Note (ED) - Evaluation Sepsis Screening Result: No Definite Risk - Focused Exam Vital Signs: Vital Signs Temp Pulse Pulse Resp BP BP Pulse Ox 09/24/21 16:12 84 164/101 H 09/24/21 13:53 88 20 185/113 H 91 L 09/24/21 13:27 95 24 H 197/123 H 92 L 09/24/21 10:57 97.4 F 92 28 H 114/63 94 L ED Communication - Discussed Case With (1) Discussed Case With (1): Admitting Provider (Dr Leger, decision to admit at about 13:35.) - My Orders Last 24 Hours: My Active Orders 09/24/21 11:12 Peripheral IV Insertion Adult [OM.PC] Stat 09/24/21 11:13 Peripheral IV Care [RC] . DIRECTED Sodium Chloride 0.9% [Saline Flush] 10 ml FLUSH ASDIRECTED PRN 09/24/21 13:45 Nitroglycerin/D5W [Nitroglycerin 25 MG/D5W 250 ML] 25 mg in 250 ml IV TITRATE - Assessment/Plan Last 24 Hours: My Active Orders 09/24/21 11:12 Peripheral IV Insertion Adult [OM.PC] Stat 09/24/21 11:13 Peripheral IV Care [RC] . DIRECTED Sodium Chloride 0.9% [Saline Flush] 10 ml FLUSH ASDIRECTED PRN 09/24/21 13:45 Nitroglycerin/D5W [Nitroglycerin 25 MG/D5W 250 ML] 25 mg in 250 ml IV TITRATE
--- NOTE | 2021-09-24 12:40 | CR ---
Chest: Portable view of the chest was obtained. Comparison: Prior chest x-ray of 08/07/21 and 05/05/21. Lung markings are increased and appear to be slightly more prominent than on prior exam with asymmetric increased density within the right lung base. Slight chronic blunting of the lateral left costophrenic angle is noted. Heart size and mediastinum are within normal limits. Bony structures show nothing acute. Impression: 1. Slightly increased lung markings within both sides of chest. Please correlate if patient has any symptoms to suggest diffuse bronchitis as well as possible pneumonia within the right lung base. Diagnostic code #3
[2021-09-24] MEDS ORDERED: Labetalol 100 MG/20 ML MDV IVPUSH ONE (13:24)
[2021-09-24] MEDS ORDERED: Nitroglycerin/D5W 25 MG/250 ML BOTTLE IV SCH (13:45)
[2021-09-24] MEDS ORDERED: Carvedilol 12.5 MG Tab PO ONE (14:42)
[2021-09-24] MEDS ORDERED: amLODIPine 5 MG Tab PO ONE (14:43)
[2021-09-24] MEDS ORDERED: Acetaminophen 325 MG Tab PO ONE (20:50)
[2021-09-24] MEDS ORDERED: Acetaminophen 325 MG Tab ONE (20:52)
== END 2021-09-24 21:12 ==
LOC: JD.ED 10:42
DX: I48.20 Chronic atrial fibrillation, unspecified (principal); I16.0 Hypertensive urgency; I13.0 Hypertensive heart and chronic kidney disease with heart failure and stage 1 through stage 4 chronic kidney disease, or unspecified chronic kidney disease; E11.22 Type 2 diabetes mellitus with diabetic chronic kidney disease; E11.40 Type 2 diabetes mellitus with diabetic neuropathy, unspecified; E11.21 Type 2 diabetes mellitus with diabetic nephropathy; I50.9 Heart failure, unspecified; N18.9 Chronic kidney disease, unspecified; J44.9 Chronic obstructive pulmonary disease, unspecified; E66.9 Obesity, unspecified; E05.90 Thyrotoxicosis, unspecified without thyrotoxic crisis or storm; R60.0 Localized edema; Z68.30 Body mass index [BMI] 30.0-30.9, adult; Z88.0 Allergy status to penicillin; Z88.2 Allergy status to sulfonamides; Z20.822 Contact with and (suspected) exposure to COVID-19; Z79.899 Other long term (current) drug therapy
CPT/HCPCS: 36415; 71045; 80053; 82947; 83880; 84484; 85025; 87635; 93005; 96365; 96366; 96375; 96376; 99285; A9270; J1940; J2270; J3490; 93010; U0002

== ENCOUNTER 2021-10-10 19:42 | Emergency (ER) | payer OTHER, MEDICAID ==
[2021-10-10] MEDS ORDERED: Morphine 4 MG/ML Syringe IVPUSH ONE ×2 (21:37→23:02)
[2021-10-10] MEDS ORDERED: Nitroglycerin/D5W 25 MG/250 ML BOTTLE IV SCH (22:15)
--- NOTE | 2021-10-10 22:36 | EDM.PDOC ---
ED HPI GENERAL MEDICAL PROBLEM - General Chief Complaint: Respiratory Problem Stated Complaint: SOB Time Seen by Provider: 10/10/21 20:30 Source of Information: Reports: Patient, Old Records History Limitations: Reports: No Limitations - History of Present Illness INITIAL COMMENTS - FREE TEXT/NARRATIVE: Patient is a 66-year-old male with a past medical history of CHF, chronic kidney disease and COPD presenting with a chief complaint of shortness of breath. Patient states symptoms started primarily the day and have rapidly progressed. He states he is unable to walk more than several feet without feeling extremely short of breath. Patient reports associated feeling of being kicked in the left side of the ribs. Patient does have recent history of admission to the hospital for acute hypoxic respiratory failure and volume overload. Patient has been recommended to start dialysis but has been extremely hesitant. Patient denies any fevers, cough, nausea, vomiting. Patient does feel more swollen and bloated and feels like he does have increased weight. No interventions performed prior to arrival. Patient is not on home oxygen. Mid-Sternal Chest Pain Score (Numeric/FACES): 8 - Related Data Allergies Allergy/AdvReac Type Severity Reaction Status Date / Time Penicillins Allergy Intermediate Hives Verified 09/24/21 11:00 Sulfa (Sulfonamide Allergy Intermediate Hives Verified 09/24/21 11:00 Antibiotics) Home Meds: Home Meds Rosuvastatin Calcium 20 mg PO BEDTIME 02/07/20 [History] Losartan [Cozaar] 100 mg PO BEDTIME 11/23/20 [History] Famotidine 10 mg PO BEDTIME 11/24/20 [History] Nortriptyline HCl [Pamelor] 50 mg PO BEDTIME 11/24/20 [History] Escitalopram Oxalate 20 mg PO BEDTIME 05/05/21 [History] dilTIAZem HCL [Diltiazem 24Hr ER] 300 mg PO DAILY 05/05/21 [History] Bumetanide [Bumex] 2 mg PO DAILY 08/07/21 [History] Insulin Glarg,Human.Rec.Analog [Lantus] 65 unit SQ DAILY 08/07/21 [History] Sildenafil Citrate [Viagra] 50 mg PO BEDTIME PRN 08/07/21 [History] traZODone HCl [Trazodone HCl] 50 mg PO BEDTIME 09/17/21 [History] Past Medical History HEENT History: Reports: Glaucoma, Hard of Hearing, Impaired Vision Other HEENT History: wears eyeglasses for driving only Cardiovascular History: Reports: Afib, Heart Failure, High Cholesterol, Hypertension Other Cardiovascular History: Pt reports third degree heart block hx Respiratory History: Reports: COPD, Sleep Apnea Other Respiratory History: hypoxemic respiratory failure, cpap at home Gastrointestinal History: Reports: Diverticulosis, GERD Genitourinary History: Reports: Chronic Renal Insuffiency, Diabetic Nephropathy Other Genitourinary History: Hx of prostate cancer. 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 Musculoskeletal History: Reports: Arthritis Neurological History: Reports: Headaches, Chronic, Migraines Psychiatric History: Reports: Anxiety, Depression, PTSD Endocrine/Metabolic History: Reports: Diabetes, Type II, Hyperthyroidism, Obesity/BMI 30+ Other Endocrine/Metabolic History: graves Hematologic History: Reports: Anticoagulation Therapy Immunologic History: Reports: None Oncologic (Cancer) History: Reports: Prostate Dermatologic History: Reports: None - Infectious Disease History Infectious Disease History: Reports: Novel Coronavirus, Other (See Below) 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 - Past Surgical History Head Surgeries/Procedures: Reports: None HEENT Surgical History: Reports: None Cardiovascular Surgical History: Reports: None Respiratory Surgical History: Reports: None GI Surgical History: Reports: Appendectomy Male Surgical History: Reports: Prostate Biopsy, Other (See Below) Other Male Surgeries/Procedures: radioactive seeds placed Endocrine Surgical History: Reports: None Neurological Surgical History: Reports: None Musculoskeletal Surgical History: Reports: Other (See Below) Other Musculoskeletal Surgeries/Procedures:: left hand surgery Oncologic Surgical History: Reports: Other (See Below) Dermatological Surgical History: Reports: None Social & Family History - Family History Family Medical History: No Pertinent Family History Cardiac: Reports: Heart Failure Respiratory: Reports: Asthma - Tobacco Use Tobacco Use Status *Q: Never Tobacco User Second Hand Smoke Exposure: No - Caffeine Use Caffeine Use: Reports: Coffee Other Caffeine Use: 2 cups a day,diet soda Caffeine Use Comment: 2 cups per day - Recreational Drug Use Recreational Drug Use: No - Living Situation & Occupation Living situation: Reports: , Alone Occupation: Retired ED ROS GENERAL - Review of Systems Review Of Systems: See Below Free Text/Narrative/Comment: In addition to that documented in the HPI above, the additional ROS was obtained: Constitutional: Denies fevers or chills Eyes: Denies vision changes ENMT: Denies sore throat CV: Per HPI Resp: Per HPI GI: Denies vomiting or diarrhea : Denies painful urination MSK: Denies recent trauma Skin: Denies new rashes Neuro: Denies new numbness or tingling or weakness Endocrine: Denies unexpected weight loss Heme: Denies bleeding disorders ED EXAM, GENERAL - Physical Exam Exam: See Below Free Text/Narrative:: I have reviewed the triage vital signs Const: Well nourished, well developed, appears stated age Eyes: Pupils Equal and reactive to light bilaterally, no conjunctival injection HENT: No signs of trauma or swelling, Neck supple without meningismus CV: Regular Rate Rhythm, Warm, well-perfused extremities RESP: Moderately tachypneic with any sort of exertion but is otherwise not in respiratory distress when he is at rest. GI: soft, non-tender, non-distended, no masses MSK: Bilateral lower extremity edema no gross deformities appreciated Skin: Warm, dry. No rashes Neuro: Alert, ring conductor II-XII grossly intact. Sensation and motor function of extremities grossly intact. Psych: Appropriate mood and affect. #1 Interpretation EKG Date: 10/10/21 Time: 20:30 Rhythm: A-Fib Rate (Beats/Min): 82 [place]: Normal P-Wave: Absent QRS: Normal ST-T: Normal QT: Normal Comparison: No Change EKG Interpretation Comments: Abnormal EKG Course - Vital Signs Last Recorded V/S: Last Vital Signs Temp 36.4 C 10/10/21 20:47 Pulse 90 10/10/21 20:47 Resp 18 10/10/21 20:47 BP 182/103 H 10/10/21 20:47 Pulse Ox 95 10/10/21 20:47 - Orders/Labs/Meds Orders: Active Orders 24 hr Category Date Time Status Chest 1V Frontal [CR] Stat Exams 10/10/21 20:54 Taken Nitroglycerin/D5W [Nitroglycerin 25 MG/D5W 250 ML] Med 10/10/21 22:15 Active 25 mg in 250 ml IV TITRATE EKG 12 Lead [EK] Stat Ther 10/10/21 23:46 Ordered Medication Orders Nitroglycerin/Dextrose (Nitroglycerin 25 Mg/D5w 250 Ml) 25 mg in 250 mls @ 60 mls/hr IV TITRATE [facility]; Protocol Last Admin: 10/10/21 22:42 Dose: 100 mcg/min, 60 mls/hr Documented by: ALFRED Labs: Laboratory Tests 10/10/21 10/10/21 10/10/21 Range/Units 21:25 21:25 21:25 WBC 12.95 H (4.23-9.07) K/mm3 RBC 3.73 L (4.63-6.08) M/mm3 Hgb 11.2 L (13.7-17.5) gm/dl Hct 35.7 L (40.1-51.0) % MCV 95.7 H (79.0-92.2) fl MCH 30.0 (25.7-32.2) pg MCHC 31.4 L (32.2-35.5) g/dl RDW Std Deviation 45.9 H (35.1-43.9) fL Plt Count 240 (163-337) K/mm3 MPV 11.4 (9.4-12.3) fl Neut % (Auto) 78.0 H (34.0-67.9) % Lymph % (Auto) 10.6 L (21.8-53.1) % [place] % (Auto) 8.7 (5.3-12.2) % Eos % (Auto) 2.0 (0.8-7.0) Baso % (Auto) 0.2 (0.1-1.2) % Neut # (Auto) 10.10 H (1.78-5.38) K/mm3 Lymph # (Auto) 1.37 (1.32-3.57) K/mm3 [place] # (Auto) 1.13 H (0.30-0.82) K/mm3 Eos # (Auto) 0.26 (0.04-0.54) K/mm3 Baso # (Auto) 0.03 (0.01-0.08) K/mm3 PT 10.1 (9.7-12.0) SECONDS INR < 0.93 VBG pH (7.30-7.40) VBG pCO2 (41-51) mmHg VBG pO2 (40-80) mmHG VBG HCO3 (22-26) meq/L VBG O2 Saturation VBG Base Excess (-4.0-2.0) O2 Delivery Device Oxygen Flow Rate Sodium 139 (136-145) mEq/L Potassium 3.9 (3.5-5.1) mEq/L Chloride 102 (98-107) mEq/L Carbon Dioxide 26 (21-32) mEq/L Anion Gap 14.9 (5-15) BUN 56 H (7-18) mg/dL Creatinine 4.3 H (0.7-1.3) mg/dL Est Cr Clr Drug Dosing 17.92 mL/min Estimated GFR (MDRD) 14 (>60) mL/min BUN/Creatinine Ratio 13.0 L (14-18) Glucose 341 H (70-99) mg/dL Calcium 9.3 (8.5-10.1) mg/dL Total Bilirubin 0.5 (0.2-1.0) mg/dL AST 15 (15-37) U/L ALT 25 (16-63) U/L Alkaline Phosphatase 115 (46-116) U/L Troponin I < 0.017 (0.00-0.056) ng/mL NT-Pro-B Natriuret Pep (0-125) pg/mL Total Protein 7.8 (6.4-8.2) g/dl Albumin 3.5 (3.4-5.0) g/dl Globulin 4.3 gm/dL Albumin/Globulin Ratio 0.8 L (1-2) SARS-CoV-2 RNA ([facility]) (NEGATIVE) 10/10/21 10/10/21 10/10/21 Range/Units 21:25 21:45 22:25 WBC (4.23-9.07) K/mm3 RBC (4.63-6.08) M/mm3 Hgb (13.7-17.5) gm/dl Hct (40.1-51.0) % MCV (79.0-92.2) fl MCH (25.7-32.2) pg MCHC (32.2-35.5) g/dl RDW Std Deviation (35.1-43.9) fL Plt Count (163-337) K/mm3 MPV (9.4-12.3) fl Neut % (Auto) (34.0-67.9) % Lymph % (Auto) (21.8-53.1) % [place] % (Auto) (5.3-12.2) % Eos % (Auto) (0.8-7.0) Baso % (Auto) (0.1-1.2) % Neut # (Auto) (1.78-5.38) K/mm3 Lymph # (Auto) (1.32-3.57) K/mm3 [place] # (Auto) (0.30-0.82) K/mm3 Eos # (Auto) (0.04-0.54) K/mm3 Baso # (Auto) (0.01-0.08) K/mm3 PT (9.7-12.0) SECONDS INR VBG pH 7.37 (7.30-7.40) VBG pCO2 42.4 (41-51) mmHg VBG pO2 41.0 (40-80) mmHG VBG HCO3 24.0 (22-26) meq/L VBG O2 Saturation 70.7 VBG Base Excess -0.7 (-4.0-2.0) O2 Delivery Device Nasal cannula Oxygen Flow Rate 2.0 Sodium (136-145) mEq/L Potassium (3.5-5.1) mEq/L Chloride (98-107) mEq/L Carbon Dioxide (21-32) mEq/L Anion Gap (5-15) BUN (7-18) mg/dL Creatinine (0.7-1.3) mg/dL Est Cr Clr Drug Dosing mL/min Estimated GFR (MDRD) (>60) mL/min BUN/Creatinine Ratio (14-18) Glucose (70-99) mg/dL Calcium (8.5-10.1) mg/dL Total Bilirubin (0.2-1.0) mg/dL AST (15-37) U/L ALT (16-63) U/L Alkaline Phosphatase (46-116) U/L Troponin I (0.00-0.056) ng/mL NT-Pro-B Natriuret Pep 3359 H (0-125) pg/mL Total Protein (6.4-8.2) g/dl Albumin (3.4-5.0) g/dl Globulin gm/dL Albumin/Globulin Ratio (1-2) SARS-CoV-2 RNA ([place]) Negative (NEGATIVE) Meds: Medications Generic Name Dose Route Start Last Admin Trade Name Freq PRN Reason Stop Dose Admin Nitroglycerin/Dextrose 25 mg in 250 mls @ 60 mls/hr 10/10/21 22:15 10/10/21 22:42 Nitroglycerin 25 Mg/D5w 250 Ml IV 100 mcg/min TITRATE [facility] 60 mls/hr Administration Protocol 100 MCG/MIN Discontinued Medications Generic Name Dose Route Start Last Admin Trade Name Karen PRN Reason Stop Dose Admin Diphenhydramine HCl 25 mg 10/10/21 23:02 10/10/21 23:19 Diphenhydramine 50 Mg/Ml Sdv IVPUSH 10/10/21 23:03 25 mg ONETIME ONE Administration Morphine Sulfate 4 mg 10/10/21 21:37 10/10/21 21:45 Morphine 4 Mg/Ml Syringe IVPUSH 10/10/21 21:38 4 mg ONETIME ONE Administration Morphine Sulfate 4 mg 10/10/21 23:02 10/10/21 23:18 Morphine 4 Mg/Ml Syringe IVPUSH 10/10/21 23:03 4 mg ONETIME ONE Administration Departure - Departure Time of Disposition: 23:00 Disposition: DC/Tfer to [facility] Clinical Impression: Hypoxia, Heart failure, Chronic renal insufficiency - Discharge Information Referrals: Mell Flood MD [Primary Care Provider] - Forms: ED Department Discharge Sepsis Event Note (ED) - Evaluation Sepsis Screening Result: No Definite Risk - Focused Exam Vital Signs: Vital Signs Temp Pulse Resp BP Pulse Ox 10/10/21 20:47 36.4 C 90 18 182/103 H 95 - My Orders Last 24 Hours: My Active Orders 10/10/21 20:54 Chest 1V Frontal [CR] Stat 10/10/21 22:15 Nitroglycerin/D5W [Nitroglycerin 25 MG/D5W 250 ML] 25 mg in 250 ml IV TITRATE 10/10/21 23:46 EKG 12 Lead [EK] Stat - Assessment/Plan Last 24 Hours: My Active Orders 10/10/21 20:54 Chest 1V Frontal [CR] Stat 10/10/21 22:15 Nitroglycerin/D5W [Nitroglycerin 25 MG/D5W 250 ML] 25 mg in 250 ml IV TITRATE 10/10/21 23:46 EKG 12 Lead [EK] Stat Assessment:: Patient is a 66-year-old male presented to emergency room with shortness of breath. Patient not in severe respiratory distress but does demonstrate evidence of hypoxia as he was saturating at 80% on room air. He is much more comfortable on 3 L nasal cannula. He is not requiring BiPAP at this time. However this, was considered. Differential diagnosis considered for this patient include STEMI, CHF exacerbation/pulmonary edema, pneumonia, PE. Chest x-ray laboratory studies performed. His x-ray demonstrates significant pulmonary edema with elevated BNP at around 3500. Otherwise, slight leukocytosis but no significant electrolyte abnormalities. Kidney function is around baseline. Patient likely has pulmonary edema due to multiple factors including chronic kidney disease and CHF. He will require admission to the hospital for further evaluation and work-up. He will also require some diuresis. Patient was started on a nitroglycerin drip which improved patient's blood pressure as well as his breathing. He will require transfer to higher level of care due to nephrology needs. I spoke with Dr. Wilson at [facility] in [place] who agreed accept patient for admission.
[2021-10-10] MEDS ORDERED: diphenhydrAMINE 50 MG/ML SDV IVPUSH ONE (23:02)
--- NOTE | 2021-10-11 08:52 | CR ---
Chest: Frontal view of the chest was obtained. Comparison: Prior chest x-ray of 09/24/21. Slight increased perihilar lung markings are noted on both sides. Findings are felt to be fairly stable from prior chest x-ray when allowing for differences in technique. Slight blunting of the lateral left costophrenic angle is seen which appears stable from prior exam. Heart size and mediastinum are also stable. Bony structures show nothing acute. Impression: 1. Stable chest x-ray from prior exam. 2. Nothing acute is definitely appreciated. Diagnostic code #2
== END 2021-10-11 ==
LOC: JD.ED 19:42
DX: I13.0 Hypertensive heart and chronic kidney disease with heart failure and stage 1 through stage 4 chronic kidney disease, or unspecified chronic kidney disease (principal); E11.22 Type 2 diabetes mellitus with diabetic chronic kidney disease; N18.9 Chronic kidney disease, unspecified; I50.9 Heart failure, unspecified; R09.02 Hypoxemia; I48.91 Unspecified atrial fibrillation; E78.00 Pure hypercholesterolemia, unspecified; J44.9 Chronic obstructive pulmonary disease, unspecified; K21.9 Gastro-esophageal reflux disease without esophagitis; M19.90 Unspecified osteoarthritis, unspecified site; E66.9 Obesity, unspecified; Z68.35 Body mass index [BMI] 35.0-35.9, adult; Z88.0 Allergy status to penicillin; Z88.2 Allergy status to sulfonamides; Z79.4 Long term (current) use of insulin; Z79.899 Other long term (current) drug therapy; Z20.822 Contact with and (suspected) exposure to COVID-19
CPT/HCPCS: 36415; 71045; 80053; 82803; 83880; 84484; 85025; 85610; 87635; 93005; 96365; 96375; 96376; 99285; J1200; J2270; J3490; 93010; U0002

== ENCOUNTER 2021-11-26 11:48 | Emergency (ER) | payer MEDICAID ==
[2021-11-26] MEDS ORDERED: Sodium Chloride 0.9% 10 ML Syringe FLUSH PRN (12:29)
[2021-11-26] MEDS ORDERED: Sodium Chloride 0.9% 500 ML IV SCH (12:30)
--- NOTE | 2021-11-26 12:43 | EDM.PDOC ---
<Yanelis Gregorio - Last Filed: 11/26/21 14:58> ED HPI GENERAL MEDICAL PROBLEM - General Chief Complaint: General Stated Complaint: DIZZINESS, FACE NUMBNESS TO LEFT SIDE Time Seen by Provider: 11/26/21 12:02 Source of Information: Reports: Patient History Limitations: Reports: No Limitations - History of Present Illness INITIAL COMMENTS - FREE TEXT/NARRATIVE: Mr. Johan Paige is a 66-year-old male who presents for evaluation of an episode of dizziness and fall after dialysis this morning. After his run, his "eye got dark" when he stood up. He caught himself with his hands. He denies any head trauma, LOC, or anything like this happening before. He is currently sweating. For 1 week, he has been experiencing loss of appetite, headache, dry cough, and intermittent nausea. He denies fever, chills, chest pain, and shortness of breath. Onset: Today, Sudden Duration: Minutes: - Related Data Allergies Allergy/AdvReac Type Severity Reaction Status Date / Time Penicillins Allergy Intermediate Hives Verified 11/26/21 12:13 Sulfa (Sulfonamide Allergy Intermediate Hives Verified 11/26/21 12:13 Antibiotics) Home Meds: Home Meds Rosuvastatin Calcium 20 mg PO BEDTIME 02/07/20 [History] Losartan [Cozaar] 100 mg PO BEDTIME 11/23/20 [History] Famotidine 10 mg PO BEDTIME 11/24/20 [History] Nortriptyline HCl [Pamelor] 50 mg PO BEDTIME 11/24/20 [History] Escitalopram Oxalate 20 mg PO BEDTIME 05/05/21 [History] dilTIAZem HCL [Diltiazem 24Hr ER] 300 mg PO DAILY 05/05/21 [History] Bumetanide [Bumex] 2 mg PO DAILY 08/07/21 [History] Insulin Glarg,Human.Rec.Analog [Lantus] 65 unit SQ DAILY 08/07/21 [History] Sildenafil Citrate [Viagra] 50 mg PO BEDTIME PRN 08/07/21 [History] traZODone HCl [Trazodone HCl] 50 mg PO BEDTIME 08/07/21 [History] Past Medical History HEENT History: Reports: Glaucoma, Hard of Hearing, Impaired Vision Other HEENT History: wears eyeglasses for driving only Cardiovascular History: Reports: Afib, Heart Failure, High Cholesterol, Hypertension Other Cardiovascular History: Pt reports third degree heart block hx Respiratory History: Reports: COPD, Sleep Apnea Other Respiratory History: hypoxemic respiratory failure, cpap at home Gastrointestinal History: Reports: Diverticulosis, GERD Genitourinary History: Reports: Chronic Renal Insuffiency, Diabetic Nephropathy Other Genitourinary History: Hx of prostate cancer. FAMILY CASEWORKER History: Reports: None Musculoskeletal History: Reports: Arthritis Neurological History: Reports: Headaches, Chronic, Migraines Psychiatric History: Reports: Anxiety, Depression, PTSD Endocrine/Metabolic History: Reports: Diabetes, Type II, Hyperthyroidism, Obesity/BMI 30+ Other Endocrine/Metabolic History: graves Hematologic History: Reports: Anticoagulation Therapy Immunologic History: Reports: None Oncologic (Cancer) History: Reports: Prostate Dermatologic History: Reports: None - Infectious Disease History Infectious Disease History: Reports: Novel Coronavirus, Other (See Below) 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 - Past Surgical History Head Surgeries/Procedures: Reports: None HEENT Surgical History: Reports: None Cardiovascular Surgical History: Reports: None Respiratory Surgical History: Reports: None GI Surgical History: Reports: Appendectomy Male Surgical History: Reports: Prostate Biopsy, Other (See Below) Other Male Surgeries/Procedures: radioactive seeds placed Endocrine Surgical History: Reports: None Neurological Surgical History: Reports: None Musculoskeletal Surgical History: Reports: Other (See Below) Other Musculoskeletal Surgeries/Procedures:: left hand surgery Oncologic Surgical History: Reports: Other (See Below) Dermatological Surgical History: Reports: None Social & Family History - Family History Family Medical History: No Pertinent Family History Cardiac: Reports: Heart Failure Respiratory: Reports: Asthma - Caffeine Use Caffeine Use: Reports: Coffee Other Caffeine Use: 2 cups a day,diet soda Caffeine Use Comment: 2 cups per day - Living Situation & Occupation Living situation: Reports: , Alone Occupation: Retired ED ROS GENERAL - Review of Systems Constitutional: Reports: Diaphoresis, Decreased Appetite. Denies: Fever, Chills, Malaise, Weakness, Fatigue HEENT: Reports: No Symptoms Respiratory: Reports: Cough. Denies: Shortness of Breath, Wheezing, Sputum Cardiovascular: Reports: No Symptoms, Orthopnea. Denies: Chest Pain, Palpitations Endocrine: Reports: No Symptoms GI/Abdominal: Reports: No Symptoms Musculoskeletal: Reports: No Symptoms Skin: Reports: No Symptoms, Diaphoresis Neurological: Reports: No Symptoms Psychiatric: Reports: No Symptoms ED EXAM, GENERAL - Physical Exam Exam: See Below Exam Limited By: No Limitations General Appearance: Alert, WD/WN, No Apparent Distress Eye Exam: Bilateral Eye: EOMI, PERRL Ears: Normal External Exam Nose: Normal Inspection Throat/Mouth: Normal Inspection Head: Atraumatic, Normocephalic Neck: Normal Inspection, Full Range of Motion Respiratory/Chest: No Respiratory Distress, Lungs Clear, Normal Breath Sounds Cardiovascular: Regular Rate, Rhythm, No Edema, No JVD GI/Abdominal: Normal Bowel Sounds, Non-Tender Extremities: Normal Inspection (Full ROM, strength equal and 5/5 in all ex tremities) Neurological: Alert, Oriented, CN II-XII Intact, Normal Cognition, No Motor/Sensory Deficits Psychiatric: Normal Affect, Normal Mood Skin Exam: Intact, Cool, Diaphoretic, Pallor Course - Re-Assessments/Exams Free Text/Narrative Re-Assessment/Exam: 11/26/21 12:40 Initial orders include IV insertion with 500ml 0.9% NaCl bolus, CBC, CMP, COVID/Flu swab, EKG and cardiac monitoring. 11/26/21 14:30 During re-assessment patient is teary eyed and reports he is experiencing a lot of leg pain and headache. He reports it is a 9/10, and describes his legs as "on fire". He currently has on a lidocaine but feels it is not working. He rates the headache a 8.5/10 and describes it as pulsating. Denies photophobia. He usually takes Gabapentin daily, but has not taken it today. 300mg PO Gabapentin ordered. Departure - Departure Disposition: Home, Self-Care 01 Clinical Impression: Near syncope Hypotension Qualifiers: Hypotension type: other hypotension type Qualified Code(s): I95.89 - Other hypotension - Discharge Information Referrals: Gasper Mustafa MD [Primary Care Provider] - Forms: ED Department Discharge Additional Instructions: Go home and rest. Take your medications as prescribed. Follow up with Dr Jackman within a week. Please return if you are worse. Sepsis Event Note (ED) - Evaluation Sepsis Screening Result: No Definite Risk <Robert Araujo - Last Filed: 11/26/21 15:41> ED ROS GENERAL - Review of Systems Review Of Systems: See Below #1 Interpretation EKG Date: 11/26/21 Time: 13:08 Rhythm: NSR Rate (Beats/Min): 97 [place]: Normal P-Wave: Present QRS: Normal ST-T: Normal QT: Normal IA/PQ Interval: 1st degree HB EKG Interpretation Comments: PVCs Course - Vital Signs Last Recorded V/S: Last Vital Signs Temp 96.9 F 11/26/21 12:10 Pulse 102 H 11/26/21 12:10 Resp 18 11/26/21 12:10 BP 100/72 11/26/21 12:10 Pulse Ox 96 11/26/21 12:10 - Orders/Labs/Meds Orders: Active Orders 24 hr Category Date Time Status Cardiac Monitoring [RC] . DIRECTED Care 11/26/21 12:30 Active Cardiac Monitoring [RC] . DIRECTED Care 11/26/21 12:30 Active Peripheral IV Care [RC] . DIRECTED Care 11/26/21 12:30 Active HYDROmorphone [Dilaudid] Med 11/26/21 15:34 Once 1 mg IVPUSH ONETIME ONE Sodium Chloride 0.9% [Normal Saline] 500 ml Med 11/26/21 12:30 Active IV .BOLUS Sodium Chloride 0.9% [Saline Flush] Med 11/26/21 12:29 Active 10 ml FLUSH ASDIRECTED PRN Peripheral IV Insertion Adult [OM.PC] Stat Oth 11/26/21 12:29 Ordered Medication Orders Hydromorphone HCl (Hydromorphone 1 Mg/Ml Syringe) 1 mg IVPUSH ONETIME ONE Stop: 11/26/21 15:35 Sodium Chloride (Normal Saline) 500 mls @ 1,000 mls/hr IV .BOLUS [place]WRENCE Sodium Chloride (Sodium Chloride 0.9% 10 Ml Syringe) 10 ml FLUSH ASDIRECTED PRN PRN Reason: Keep Vein Open Last Admin: 11/26/21 13:30 Dose: 10 ml Documented by: LETICIA Labs: Laboratory Tests 11/26/21 11/26/21 11/26/21 Range/Units 13:30 13:30 14:05 WBC 9.72 H (4.23-9.07) K/mm3 RBC 4.61 L (4.63-6.08) M/mm3 Hgb 14.0 D (13.7-17.5) gm/dl Hct 42.8 (40.1-51.0) % MCV 92.8 H (79.0-92.2) fl MCH 30.4 (25.7-32.2) pg MCHC 32.7 (32.2-35.5) g/dl RDW Std Deviation 52.4 H (35.1-43.9) fL Plt Count 181 (163-337) K/mm3 MPV 10.8 (9.4-12.3) fl Neut % (Auto) 68.1 H (34.0-67.9) % Lymph % (Auto) 17.9 L (21.8-53.1) % [place] % (Auto) 9.8 (5.3-12.2) % Eos % (Auto) 3.2 (0.8-7.0) Baso % (Auto) 0.5 (0.1-1.2) % Neut # (Auto) 6.62 H (1.78-5.38) K/mm3 Lymph # (Auto) 1.74 (1.32-3.57) K/mm3 [place] # (Auto) 0.95 H (0.30-0.82) K/mm3 Eos # (Auto) 0.31 (0.04-0.54) K/mm3 Baso # (Auto) 0.05 (0.01-0.08) K/mm3 Sodium 136 (136-145) mEq/L Potassium 4.0 (3.5-5.1) mEq/L Chloride 95 L (98-107) mEq/L Carbon Dioxide 30 (21-32) mEq/L Anion Gap 15.0 (5-15) BUN 38 H (7-18) mg/dL Creatinine 5.7 H D (0.7-1.3) mg/dL Est Cr Clr Drug Dosing 13.94 mL/min Estimated GFR (MDRD) 10 (>60) mL/min BUN/Creatinine Ratio 6.7 L (14-18) Glucose 308 H (70-99) mg/dL Calcium 9.0 (8.5-10.1) mg/dL Total Bilirubin 0.3 (0.2-1.0) mg/dL AST 9 L (15-37) U/L ALT 26 (16-63) U/L Alkaline Phosphatase 97 (46-116) U/L Total Protein 8.1 (6.4-8.2) g/dl Albumin 4.0 (3.4-5.0) g/dl Globulin 4.1 gm/dL Albumin/Globulin Ratio 1.0 (1-2) Influenza Type A RNA Negative (NEGATIVE) Influenza Type B RNA Negative (NEGATIVE) SARS-CoV-2 RNA ([place]) Negative (NEGATIVE) Meds: Medications Generic Name Dose Route Start Last Admin Trade Name Freq PRN Reason Stop Dose Admin Hydromorphone HCl 1 mg 11/26/21 15:34 Hydromorphone 1 Mg/Ml Syringe IVPUSH 11/26/21 15:35 ONETIME ONE Sodium Chloride 500 mls @ 1,000 mls/hr 11/26/21 12:30 Normal Saline IV .BOLUS LAWRENCE Sodium Chloride 10 ml 11/26/21 12:29 11/26/21 13:30 Sodium Chloride 0.9% 10 Ml Syringe FLUSH 10 ml ASDIRECTED PRN Administration Keep Vein Open Discontinued Medications Generic Name Dose Route Start Last Admin Trade Name Freq PRN Reason Stop Dose Admin Gabapentin 300 mg 11/26/21 14:07 11/26/21 14:30 Gabapentin 300 Mg Cap PO 11/26/21 14:08 300 mg ONETIME ONE Administration - Re-Assessments/Exams Free Text/Narrative Re-Assessment/Exam: 11/26/21 15:35 I examined the patient myself and I agree with Yanelis's assessment and plan. I ordered labs and an EKG. 11/26/21 15:37 His EKG shows a NSR with some PVCs. His WBC was elevated at 9.72. His creatinine is elevated at 5.7. His glucose was 308. He is COVID and influenza negative. He had some pain so I ordered gabapentin and some dilaudid 1mg IV. I will discharge him home. Departure - Departure Time of Disposition: 15:40 Condition: Good - Discharge Information *PRESCRIPTION DRUG MONITORING PROGRAM REVIEWED*: Not Applicable *COPY OF PRESCRIPTION DRUG MONITORING REPORT IN PATIENT [place]: Not Applicable Sepsis Event Note (ED) - Focused Exam Vital Signs: Vital Signs Temp Pulse Resp BP Pulse Ox 11/26/21 12:10 96.9 F 102 H 18 100/72 96 - My Orders Last 24 Hours: My Active Orders 11/26/21 12:29 Sodium Chloride 0.9% [Saline Flush] 10 ml FLUSH ASDIRECTED PRN Peripheral IV Insertion Adult [OM.PC] Stat 11/26/21 12:30 Cardiac Monitoring [RC] . DIRECTED Cardiac Monitoring [RC] . DIRECTED Peripheral IV Care [RC] . DIRECTED Sodium Chloride 0.9% [Normal Saline] 500 ml IV .BOLUS 11/26/21 15:34 HYDROmorphone [Dilaudid] 1 mg IVPUSH ONETIME ONE - Assessment/Plan Last 24 Hours: My Active Orders 11/26/21 12:29 Sodium Chloride 0.9% [Saline Flush] 10 ml FLUSH ASDIRECTED PRN Peripheral IV Insertion Adult [OM.PC] Stat 11/26/21 12:30 Cardiac Monitoring [RC] . DIRECTED Cardiac Monitoring [RC] . DIRECTED Peripheral IV Care [RC] . DIRECTED Sodium Chloride 0.9% [Normal Saline] 500 ml IV .BOLUS 11/26/21 15:34 HYDROmorphone [Dilaudid] 1 mg IVPUSH ONETIME ONE
[2021-11-26] MEDS ORDERED: Gabapentin 300 MG Cap PO ONE (14:07)
[2021-11-26 14:54] LABS: CORONAVIRUS COVID-19 NAA NEGATIVE (NEGATIVE)
[2021-11-26] MEDS ORDERED: HYDROmorphone 1 MG/ML Syringe IVPUSH ONE (15:34)
== END 2021-11-26 16:26 | disposition home or self-care (01) ==
LOC: JD.ED 11:48
DX: I95.89 Other hypotension (principal); J44.9 Chronic obstructive pulmonary disease, unspecified; K21.9 Gastro-esophageal reflux disease without esophagitis; E11.22 Type 2 diabetes mellitus with diabetic chronic kidney disease; E11.21 Type 2 diabetes mellitus with diabetic nephropathy; N18.9 Chronic kidney disease, unspecified; E66.9 Obesity, unspecified; Z68.30 Body mass index [BMI] 30.0-30.9, adult; Z88.0 Allergy status to penicillin; Z88.2 Allergy status to sulfonamides; Z20.822 Contact with and (suspected) exposure to COVID-19
CPT/HCPCS: 0240U; 36415; 80053; 85025; 93005; 96374; 99284; A9270; J1170; J7030

== ENCOUNTER 2021-12-08 11:55 | Emergency (ER) | payer MEDICAID ==
[2021-12-08] MEDS ORDERED: Acetaminophen/oxyCODONE 325-5 MG Tab PO ONE (12:55)
== END 2021-12-08 15:25 | disposition home or self-care (01) ==
LOC: JD.ED 11:55
DX: S30.0XXA Contusion of lower back and pelvis, initial encounter (principal); I48.91 Unspecified atrial fibrillation; E78.00 Pure hypercholesterolemia, unspecified; I13.0 Hypertensive heart and chronic kidney disease with heart failure and stage 1 through stage 4 chronic kidney disease, or unspecified chronic kidney disease; E11.22 Type 2 diabetes mellitus with diabetic chronic kidney disease; N18.9 Chronic kidney disease, unspecified; I50.9 Heart failure, unspecified; J44.9 Chronic obstructive pulmonary disease, unspecified; K21.9 Gastro-esophageal reflux disease without esophagitis; E11.21 Type 2 diabetes mellitus with diabetic nephropathy; E66.9 Obesity, unspecified; Z68.32 Body mass index [BMI] 32.0-32.9, adult; Z79.01 Long term (current) use of anticoagulants; Z87.891 Personal history of nicotine dependence; Z88.0 Allergy status to penicillin; Z88.2 Allergy status to sulfonamides; Z79.4 Long term (current) use of insulin; Z79.899 Other long term (current) drug therapy; W18.30XA Fall on same level, unspecified, initial encounter
CPT/HCPCS: 72100; 72220; 99283; A9270

== ENCOUNTER 2022-02-01 10:53 | Day surgery (SDC) | payer MEDICAID ==
[~2022-02-01 10:53] MED LIST changes: +Albuterol 0.083% 2.5 MG/3 ML Neb Soln NEB ONE; -Albuterol 0.083% 2.5 MG/3 ML Neb Soln NEB PRN; +Insulin Lispro 100 Unit/ML 3 ML KwikPen SUBCUT ONE; -Lidocaine 1% 4 ML ONE; +Metoprolol Succinate 25 MG Tab.ER PO ONE; +Sodium Bicarbonate 8.4% 50 MEQ/50 ML Syringe IVPUSH ONE; +Sodium Chloride 0.9% 1,000 ML IV SCH; +Sodium Chloride 0.9% 10 ML Syringe FLUSH SCH
[2022-02-01] MEDS ORDERED: Albuterol 0.083% 2.5 MG/3 ML Neb Soln ONE (14:12)
[2022-02-01] MEDS ORDERED: Lidocaine 1% 4 ML ONE (14:13)
[2022-02-01] MEDS ORDERED: Propofol 200 MG/20 ML SDV ONE (14:13)
== END 2022-02-01 15:28 | disposition home or self-care (01) ==
LOC: JD.SDS 10:53
PROVIDERS: ATTEND Surgery
DX: Z12.11 Encounter for screening for malignant neoplasm of colon (principal); K57.30 Diverticulosis of large intestine without perforation or abscess without bleeding; I13.0 Hypertensive heart and chronic kidney disease with heart failure and stage 1 through stage 4 chronic kidney disease, or unspecified chronic kidney disease; I50.9 Heart failure, unspecified; E11.22 Type 2 diabetes mellitus with diabetic chronic kidney disease; E11.40 Type 2 diabetes mellitus with diabetic neuropathy, unspecified; E11.319 Type 2 diabetes mellitus with unspecified diabetic retinopathy without macular edema; N18.4 Chronic kidney disease, stage 4 (severe); I48.91 Unspecified atrial fibrillation; E03.9 Hypothyroidism, unspecified; G47.33 Obstructive sleep apnea (adult) (pediatric); E87.5 Hyperkalemia; E55.9 Vitamin D deficiency, unspecified; F32.A Depression, unspecified; F41.9 Anxiety disorder, unspecified; I25.10 Atherosclerotic heart disease of native coronary artery without angina pectoris; J43.9 Emphysema, unspecified; E78.00 Pure hypercholesterolemia, unspecified; H54.7 Unspecified visual loss; K21.9 Gastro-esophageal reflux disease without esophagitis; E66.9 Obesity, unspecified; Z68.32 Body mass index [BMI] 32.0-32.9, adult; Z88.0 Allergy status to penicillin; Z88.2 Allergy status to sulfonamides; Z98.890 Other specified postprocedural states; Z90.49 Acquired absence of other specified parts of digestive tract; Z86.010 Personal history of colon polyps; Z87.891 Personal history of nicotine dependence; Z79.890 Hormone replacement therapy; Z79.4 Long term (current) use of insulin; Z79.01 Long term (current) use of anticoagulants; Z79.899 Other long term (current) drug therapy
CPT/HCPCS: 36415; 45378; 80053; 82947; A9270; J1815; J2704; J7030; 00812

== ENCOUNTER 2022-03-28 21:23 | Emergency (ER) | payer MEDICARE, MEDICAID ==
[2022-03-28] MEDS ORDERED: Ondansetron 4 MG/2 ML SDV IVPUSH ONE (22:43)
[2022-03-28] MEDS ORDERED: HYDROmorphone 0.5 MG/0.5 ML Syringe IVPUSH ONE (22:43)
[2022-03-29] MEDS ORDERED: HYDROmorphone 0.5 MG/0.5 ML Syringe IVPUSH ONE (01:15)
== END 2022-03-29 02:24 | disposition home or self-care (01) ==
LOC: JD.ED 21:23
DX: E11.65 Type 2 diabetes mellitus with hyperglycemia (principal); I48.91 Unspecified atrial fibrillation; I25.10 Atherosclerotic heart disease of native coronary artery without angina pectoris; I11.0 Hypertensive heart disease with heart failure; I50.9 Heart failure, unspecified; E78.00 Pure hypercholesterolemia, unspecified; E66.9 Obesity, unspecified; Z68.34 Body mass index [BMI] 34.0-34.9, adult; Z88.0 Allergy status to penicillin; Z87.891 Personal history of nicotine dependence; Z88.2 Allergy status to sulfonamides; Z79.01 Long term (current) use of anticoagulants; Z79.4 Long term (current) use of insulin; Z79.899 Other long term (current) drug therapy
CPT/HCPCS: 36415; 71046; 80053; 82947; 84484; 85025; 93005; 96374; 96375; 96376; 99285; J1170; J1815; J2405

== ENCOUNTER 2022-04-26 08:33 | Day surgery (SDC) | payer MEDICAID, MEDICARE, OTHER ==
[~2022-04-26 08:33] MED LIST changes: -Albuterol 0.083% 2.5 MG/3 ML Neb Soln NEB ONE; -Insulin Lispro 100 Unit/ML 3 ML KwikPen SUBCUT ONE; -Metoprolol Succinate 25 MG Tab.ER PO ONE; -Propofol 200 MG/20 ML SDV ONE; -Sodium Bicarbonate 8.4% 50 MEQ/50 ML Syringe IVPUSH ONE; -Sodium Chloride 0.9% 1,000 ML IV SCH
[2022-04-26] MEDS ORDERED: Ondansetron 4 MG/2 ML SDV IVPUSH PRN (09:29)
[2022-04-26] MEDS ORDERED: Propofol 200 MG/20 ML SDV ONE ×4 (09:40→11:09)
[2022-04-26] MEDS ORDERED: Midazolam 1 MG/ML 2 ML SDV ONE (09:40)
[2022-04-26] MEDS ORDERED: Lidocaine 1% 4 ML ONE (09:41)
== END 2022-04-26 12:35 | disposition home or self-care (01) ==
LOC: JD.SDS 08:33
PROVIDERS: ATTEND Surgery
DX: Z12.11 Encounter for screening for malignant neoplasm of colon (principal); D12.0 Benign neoplasm of cecum; D12.2 Benign neoplasm of ascending colon; D12.3 Benign neoplasm of transverse colon; K57.30 Diverticulosis of large intestine without perforation or abscess without bleeding; I48.91 Unspecified atrial fibrillation; F41.9 Anxiety disorder, unspecified; J44.9 Chronic obstructive pulmonary disease, unspecified; F32.A Depression, unspecified; E03.9 Hypothyroidism, unspecified; E55.9 Vitamin D deficiency, unspecified; G47.33 Obstructive sleep apnea (adult) (pediatric); I11.0 Hypertensive heart disease with heart failure; I50.9 Heart failure, unspecified; I25.10 Atherosclerotic heart disease of native coronary artery without angina pectoris; E11.42 Type 2 diabetes mellitus with diabetic polyneuropathy; E78.00 Pure hypercholesterolemia, unspecified; E66.9 Obesity, unspecified; Z68.32 Body mass index [BMI] 32.0-32.9, adult; Z88.0 Allergy status to penicillin; Z88.2 Allergy status to sulfonamides; Z90.49 Acquired absence of other specified parts of digestive tract; Z98.890 Other specified postprocedural states; Z79.890 Hormone replacement therapy; Z79.4 Long term (current) use of insulin; Z79.01 Long term (current) use of anticoagulants; Z79.899 Other long term (current) drug therapy
CPT/HCPCS: 45380; 45385; 45398; J2250; J2704; J7120; 00812

== ENCOUNTER 2022-06-22 20:14 | Emergency (ER) | payer OTHER ==
[2022-06-22] MEDS ORDERED: Acetaminophen/HYDROcodone 325-5 MG Tab PO ONE (23:14)
== END 2022-06-23 00:58 | disposition home or self-care (01) ==
LOC: JD.ED 20:14
DX: L76.22 Postprocedural hemorrhage of skin and subcutaneous tissue following other procedure (principal); I48.91 Unspecified atrial fibrillation; I25.10 Atherosclerotic heart disease of native coronary artery without angina pectoris; E78.00 Pure hypercholesterolemia, unspecified; E11.22 Type 2 diabetes mellitus with diabetic chronic kidney disease; I12.9 Hypertensive chronic kidney disease with stage 1 through stage 4 chronic kidney disease, or unspecified chronic kidney disease; N18.4 Chronic kidney disease, stage 4 (severe); E66.9 Obesity, unspecified; Z88.0 Allergy status to penicillin; Z88.2 Allergy status to sulfonamides; Z79.01 Long term (current) use of anticoagulants; Z79.899 Other long term (current) drug therapy; Z68.34 Body mass index [BMI] 34.0-34.9, adult
CPT/HCPCS: 36415; 74176; 85014; 85018; 99284; A9270

== ENCOUNTER 2022-06-26 11:41 | Emergency (ER) | payer OTHER ==
[2022-06-26] MEDS ORDERED: Ondansetron 4 MG/2 ML SDV IVPUSH ONE (12:30)
[2022-06-26] MEDS ORDERED: Sodium Chloride 0.9% 10 ML Syringe FLUSH PRN (12:30)
[2022-06-26] MEDS ORDERED: Sodium Chloride 0.9% 1,000 ML IV SCH (12:30)
[2022-06-26] MEDS ORDERED: HYDROmorphone 1 MG/ML Syringe IVPUSH ONE (12:32)
[2022-06-26 13:12] LABS: ESTIMATED GFR 27 mL/min (>60)
[2022-06-26] MEDS ORDERED: HYDROmorphone 0.5 MG/0.5 ML Syringe IVPUSH ONE ×2 (15:09→16:34)
== END 2022-06-26 16:57 | disposition home or self-care (01) ==
LOC: JD.ED 11:41
DX: K57.32 Diverticulitis of large intestine without perforation or abscess without bleeding (principal); I48.91 Unspecified atrial fibrillation; I25.10 Atherosclerotic heart disease of native coronary artery without angina pectoris; E11.22 Type 2 diabetes mellitus with diabetic chronic kidney disease; I13.0 Hypertensive heart and chronic kidney disease with heart failure and stage 1 through stage 4 chronic kidney disease, or unspecified chronic kidney disease; N18.4 Chronic kidney disease, stage 4 (severe); I50.9 Heart failure, unspecified; E03.9 Hypothyroidism, unspecified; E78.00 Pure hypercholesterolemia, unspecified; K21.9 Gastro-esophageal reflux disease without esophagitis; Z88.0 Allergy status to penicillin; Z88.2 Allergy status to sulfonamides; Z79.01 Long term (current) use of anticoagulants; Z79.899 Other long term (current) drug therapy
CPT/HCPCS: 36415; 74176; 80053; 81001; 83690; 85025; 96361; 96374; 96375; 96376; 99284; J1170; J2405; J3490; J7030

== ENCOUNTER 2022-10-11 12:10 | Emergency (ER) | payer MEDICAID, MEDICARE ==
[2022-10-11] MEDS ORDERED: Sodium Chloride 0.9% 10 ML Syringe FLUSH PRN (12:54)
[2022-10-11] MEDS ORDERED: HYDROmorphone 0.5 MG/0.5 ML Syringe IVPUSH ONE (13:30)
== END 2022-10-11 17:00 | disposition home or self-care (01) ==
LOC: JD.ED 12:10
DX: R10.84 Generalized abdominal pain (principal); R74.8 Abnormal levels of other serum enzymes; I13.0 Hypertensive heart and chronic kidney disease with heart failure and stage 1 through stage 4 chronic kidney disease, or unspecified chronic kidney disease; E11.22 Type 2 diabetes mellitus with diabetic chronic kidney disease; N18.4 Chronic kidney disease, stage 4 (severe); I50.9 Heart failure, unspecified; I48.91 Unspecified atrial fibrillation; I25.119 Atherosclerotic heart disease of native coronary artery with unspecified angina pectoris; E78.00 Pure hypercholesterolemia, unspecified; K21.9 Gastro-esophageal reflux disease without esophagitis; E05.90 Thyrotoxicosis, unspecified without thyrotoxic crisis or storm; E66.9 Obesity, unspecified; Z68.34 Body mass index [BMI] 34.0-34.9, adult; Z88.2 Allergy status to sulfonamides; Z88.0 Allergy status to penicillin; Z79.82 Long term (current) use of aspirin; Z79.01 Long term (current) use of anticoagulants; Z79.4 Long term (current) use of insulin; Z79.899 Other long term (current) drug therapy
CPT/HCPCS: 36415; 74019; 74176; 80053; 83690; 85025; 85610; 86140; 96374; 99284; J1170; J3490

== ENCOUNTER 2022-11-23 17:33 | Emergency (ER) | payer MEDICARE, OTHER ==
[2022-11-23] MEDS ORDERED: Acetaminophen/oxyCODONE 325-5 MG Tab PO ONE (21:42)
== END 2022-11-23 22:12 | disposition home or self-care (01) ==
LOC: JD.ED 17:33
DX: M25.562 Pain in left knee (principal); I48.91 Unspecified atrial fibrillation; I25.10 Atherosclerotic heart disease of native coronary artery without angina pectoris; I13.2 Hypertensive heart and chronic kidney disease with heart failure and with stage 5 chronic kidney disease, or end stage renal disease; E11.22 Type 2 diabetes mellitus with diabetic chronic kidney disease; N18.6 End stage renal disease; I50.9 Heart failure, unspecified; E78.00 Pure hypercholesterolemia, unspecified; K21.9 Gastro-esophageal reflux disease without esophagitis; M19.90 Unspecified osteoarthritis, unspecified site; E05.90 Thyrotoxicosis, unspecified without thyrotoxic crisis or storm; E66.9 Obesity, unspecified; Z99.2 Dependence on renal dialysis; Z88.0 Allergy status to penicillin; Z88.2 Allergy status to sulfonamides; Z79.01 Long term (current) use of anticoagulants; Z79.4 Long term (current) use of insulin; Z79.899 Other long term (current) drug therapy
CPT/HCPCS: 73502; 73562; 99283; A9270

== ENCOUNTER 2023-02-01 11:11 | Emergency (ER) | payer MEDICARE ==
[2023-02-01] MEDS ORDERED: Sodium Chloride 0.9% 10 ML Syringe FLUSH PRN (11:29)
[2023-02-01] MEDS ORDERED: HYDROmorphone 1 MG/ML Syringe IVPUSH ONE (11:39)
[2023-02-01 12:38] LABS: ESTIMATED GFR 19 mL/min (>60)
[2023-02-01 15:07] LABS: CORONAVIRUS COVID-19 NAA NEGATIVE (NEGATIVE)
== END 2023-02-01 18:18 | disposition home or self-care (01) ==
LOC: JD.ED 11:11
DX: R51.9 Headache, unspecified (principal); R42 Dizziness and giddiness; H53.9 Unspecified visual disturbance; I13.0 Hypertensive heart and chronic kidney disease with heart failure and stage 1 through stage 4 chronic kidney disease, or unspecified chronic kidney disease; I50.9 Heart failure, unspecified; N18.4 Chronic kidney disease, stage 4 (severe); E11.22 Type 2 diabetes mellitus with diabetic chronic kidney disease; I48.91 Unspecified atrial fibrillation; I25.10 Atherosclerotic heart disease of native coronary artery without angina pectoris; E78.00 Pure hypercholesterolemia, unspecified; E66.01 Morbid (severe) obesity due to excess calories; E03.9 Hypothyroidism, unspecified; F32.A Depression, unspecified; Z99.2 Dependence on renal dialysis; Z20.822 Contact with and (suspected) exposure to COVID-19; Z72.0 Tobacco use; Z86.16 Personal history of COVID-19; Z88.0 Allergy status to penicillin; Z88.2 Allergy status to sulfonamides; Z79.01 Long term (current) use of anticoagulants; Z79.4 Long term (current) use of insulin; Z79.899 Other long term (current) drug therapy
CPT/HCPCS: 0241U; 36415; 70450; 70551; 71045; 80053; 84484; 85025; 86140; 93005; 96374; 99285; J1170; J3490; 93010; 99284

== ENCOUNTER 2024-06-20 18:23 | Emergency (ER) | payer OTHER, MEDICAID, MEDICARE ==
[2024-06-20] MEDS ORDERED: Naloxone 0.4 MG/ML SDV IVPUSH PRN (19:15)
[2024-06-20 19:29] LABS: BASOPHILS ABSOLUTE AUTO 0.1 K/mm3 (0.0-0.2); BASOPHILS PERCENT AUTO 0.8 % (0.0-1.0); EOSINOPHILS ABSOLUTE AUTO 0.3 K/mm3 (0.0-0.4); EOSINOPHILS PERCENT AUTO 3.7 % (0.0-6.0); HEMATOCRIT 27.3 % (42.0-52.0); HEMOGLOBIN 8.4 gm/dl (14.0-18.0); IMMATURE GRAN ABSOLUTE AUTO 0.06 K/mm3 (0.00-0.05); IMMATURE GRAN PERCENT AUTO 0.7 % (0.0-0.4); LYMPHOCYTES ABSOLUTE AUTO 1.4 K/mm3 (1.0-4.8); LYMPHOCYTES PERCENT AUTO 16.2 % (24.0-44.0); MEAN CORPUSCULAR HGB CONC 30.8 g/dl (32.0-36.0); MEAN CORPUSCULAR VOLUME 100.7 fl (83.0-99.0); MEAN PLATELET VOLUME 10.9 fl (9.4-12.4); MONOCYTES ABSOLUTE AUTO 0.8 K/mm3 (0.0-0.8); MONOCYTES PERCENT AUTO 8.7 % (0.0-8.0); NEUTROPHILS ABSOLUTE AUTO 6.2 K/mm3 (1.8-7.7); NEUTROPHILS PERCENT AUTO 69.9 % (41.0-71.0); PLATELET COUNT,PLT 181 K/mm3 (150-400); RED BLOOD CELL COUNT 2.71 M/mm3 (4.52-5.90); WHITE BLOOD CELL COUNT,WBC 8.82 K/mm3 (3.9-11.3)
[2024-06-20 19:40] LABS: APPEARANCE,URINE CLEAR (Clear); BILIRUBIN,URINE NEGATIVE (Negative); COLOR,URINE YELLOW (Yellow); GLUCOSE,URINE TRACE (Negative); KETONES,URINE NEGATIVE (Negative); LEUKOCYTE ESTERASE,URINE NEGATIVE (Negative); NITRITE,URINE NEGATIVE (Negative); OCCULT BLOOD,URINE NEGATIVE (Negative); PROTEIN,URINE 2+ (Negative); UROBILINOGEN,URINE 0.2 (0.2-1.0)
[2024-06-20] MEDS: HYDROmorphone 0.5 MG/0.5 ML Syringe IVPUSH ONE (19:45)
[2024-06-20] MEDS: Sodium Chloride 0.9% 10 ML Syringe FLUSH PRN (19:45)
[2024-06-20 19:51] LABS: A/G RATIO 0.9 (1-2); ALBUMIN 3.3 g/dl (3.4-5.0); ANION GAP 14.7 (5-15); BILIRUBIN TOTAL 0.6 mg/dL (0.2-1.0); BUN/CREATININE RATIO 8.8 (14-18); CALCIUM 9.2 mg/dL (8.5-10.1); CREATININE 10.4 mg/dL (0.7-1.3); EST CRCL DRUG DOSING (CG) 5.85 mL/min; MAGNESIUM 3.2 mg/dL (1.8-2.4); POTASSIUM,K 4.7 mEq/L (3.5-5.1); PROTEIN TOTAL,TP 7.2 g/dl (6.4-8.2)
[2024-06-20 19:58] LABS: EPITHELIAL CELLS,URINE 0-5 /hpf (0-5); RBC,URINE 0-5 /hpf (0-5); WBC,URINE 0-5 /hpf (0-5)
[2024-06-20 19:59] LABS: BACTERIA,URINE FEW /hpf (FEW); MUCUS,URINE FEW /hpf (FEW)
[2024-06-20 20:10] LABS: CORONAVIRUS COVID-19 NAA NEGATIVE (NEGATIVE); INFLUENZA A NAA NEGATIVE (NEGATIVE); RESPIRATORY SYNCYTIAL VIR NAA NEGATIVE (NEGATIVE)
[2024-06-20] MEDS: oxyCODONE ER 10 MG TAB.ER PO ONE (22:11)
== END 2024-06-20 22:24 | disposition home or self-care (01) ==
LOC: JD.ED 18:23
DX: I13.2 Hypertensive heart and chronic kidney disease with heart failure and with stage 5 chronic kidney disease, or end stage renal disease (principal); I50.9 Heart failure, unspecified; N18.6 End stage renal disease; E11.22 Type 2 diabetes mellitus with diabetic chronic kidney disease; R07.81 Pleurodynia; I25.10 Atherosclerotic heart disease of native coronary artery without angina pectoris; E78.00 Pure hypercholesterolemia, unspecified; K21.9 Gastro-esophageal reflux disease without esophagitis; E66.9 Obesity, unspecified; Z99.2 Dependence on renal dialysis; Z79.01 Long term (current) use of anticoagulants; Z79.899 Other long term (current) drug therapy; Z79.4 Long term (current) use of insulin; Z88.0 Allergy status to penicillin; Z88.2 Allergy status to sulfonamides; Z68.34 Body mass index [BMI] 34.0-34.9, adult
CPT/HCPCS: 0241U; 36415; 71250; 80053; 80307; 81001; 82140; 83605; 83735; 85025; 93005; 96374; 99285; A9270; J1170; J3490; 99284

== ENCOUNTER 2024-06-22 11:56 | Emergency (ER) | payer MEDICAID, MEDICARE, OTHER ==
[2024-06-22 12:36] LABS: APPEARANCE,URINE CLEAR (Clear); BILIRUBIN,URINE NEGATIVE (Negative); COLOR,URINE YELLOW (Yellow); GLUCOSE,URINE 1+ (Negative); KETONES,URINE NEGATIVE (Negative); LEUKOCYTE ESTERASE,URINE NEGATIVE (Negative); NITRITE,URINE NEGATIVE (Negative); OCCULT BLOOD,URINE TRACE-LYSED (Negative); PROTEIN,URINE 2+ (Negative); UROBILINOGEN,URINE 0.2 (0.2-1.0)
[2024-06-22 12:48] LABS: BASOPHILS ABSOLUTE AUTO 0.1 K/mm3 (0.0-0.2); BASOPHILS PERCENT AUTO 0.9 % (0.0-1.0); EOSINOPHILS ABSOLUTE AUTO 0.1 K/mm3 (0.0-0.4); EOSINOPHILS PERCENT AUTO 1.3 % (0.0-6.0); HEMATOCRIT 31.1 % (42.0-52.0); HEMOGLOBIN 9.3 gm/dl (14.0-18.0); IMMATURE GRAN ABSOLUTE AUTO 0.12 K/mm3 (0.00-0.05); IMMATURE GRAN PERCENT AUTO 1.3 % (0.0-0.4); LYMPHOCYTES ABSOLUTE AUTO 1.1 K/mm3 (1.0-4.8); LYMPHOCYTES PERCENT AUTO 11.9 % (24.0-44.0); MEAN CORPUSCULAR HEMOGLOBIN 30.3 pg (28.0-32.0); MEAN CORPUSCULAR HGB CONC 29.9 g/dl (32.0-36.0); MEAN CORPUSCULAR VOLUME 101.3 fl (83.0-99.0); MEAN PLATELET VOLUME 10.6 fl (9.4-12.4); MONOCYTES ABSOLUTE AUTO 0.7 K/mm3 (0.0-0.8); MONOCYTES PERCENT AUTO 7.3 % (0.0-8.0); NEUTROPHILS PERCENT AUTO 77.3 % (41.0-71.0); NRBC ABSOLUTE 0.04 (0.00-0.02); NRBC PERCENT 0.4 % (0.0-0.2); PLATELET COUNT,PLT 205 K/mm3 (150-400); RED BLOOD CELL COUNT 3.07 M/mm3 (4.52-5.90); WHITE BLOOD CELL COUNT,WBC 9.01 K/mm3 (3.9-11.3)
[2024-06-22 13:27] LABS: ALBUMIN 3.8 g/dl (3.4-5.0); BILIRUBIN TOTAL 0.6 mg/dL (0.2-1.0); BUN/CREATININE RATIO 9.3 (14-18); CALCIUM 9.2 mg/dL (8.5-10.1); CREATININE 11.3 mg/dL (0.7-1.3); EST CRCL DRUG DOSING (CG) 6.85 mL/min; PROTEIN TOTAL,TP 7.8 g/dl (6.4-8.2)
[2024-06-22 13:49] LABS: LACTIC ACID 0.8 mmol/L (0.4-2.0)
[2024-06-22] MEDS: fentaNYL 100 MCG/2 ML SDV IVPUSH ONE ×2 (13:59→15:14)
[2024-06-22] MEDS: cefTRIAXone 2 GM in Sodium Chloride 0.9% 100 ML IV ONE (14:06)
[2024-06-22] MEDS: Doxycycline Monohydrate 100 MG Cap PO ONE (14:07)
[2024-06-22] MEDS ORDERED: Naloxone 0.4 MG/ML SDV IVPUSH PRN (14:43)
[2024-06-22 16:24] LABS: SQUAMOUS EPITHELIAL CELLS,UR 0-5 /hpf (0-5); WBC,URINE 0-5 /hpf (0-5)
[2024-06-22 16:25] LABS: BACTERIA,URINE FEW /hpf (FEW); MUCUS,URINE FEW /hpf (FEW)
== END 2024-06-22 15:22 ==
LOC: JD.ED 11:56
DX: J18.9 Pneumonia, unspecified organism (principal); I13.2 Hypertensive heart and chronic kidney disease with heart failure and with stage 5 chronic kidney disease, or end stage renal disease; I50.9 Heart failure, unspecified; N18.6 End stage renal disease; I25.10 Atherosclerotic heart disease of native coronary artery without angina pectoris; E78.00 Pure hypercholesterolemia, unspecified; I48.91 Unspecified atrial fibrillation; Z99.2 Dependence on renal dialysis; E11.22 Type 2 diabetes mellitus with diabetic chronic kidney disease; E66.9 Obesity, unspecified; E05.90 Thyrotoxicosis, unspecified without thyrotoxic crisis or storm; Z86.16 Personal history of COVID-19; Z90.49 Acquired absence of other specified parts of digestive tract; Z79.899 Other long term (current) drug therapy; Z79.890 Hormone replacement therapy; Z79.4 Long term (current) use of insulin; Z79.01 Long term (current) use of anticoagulants; Z88.0 Allergy status to penicillin; Z88.2 Allergy status to sulfonamides; Z68.30 Body mass index [BMI] 30.0-30.9, adult
CPT/HCPCS: 36415; 71045; 80053; 81001; 83605; 85025; 87040; 96365; 96375; 96376; 99285; A9270; J0696; J3010; J3490

== ENCOUNTER 2024-08-03 15:20 | Emergency (ER) | payer OTHER ==
[2024-08-03] MEDS ORDERED: Naloxone 0.4 MG/ML SDV IVPUSH PRN (15:46)
[2024-08-03] MEDS: Acetaminophen/oxyCODONE 325-5 MG Tab PO ONE (16:51)
[2024-08-03] MEDS: fentaNYL 100 MCG/2 ML SDV IVPUSH ONE (16:58)
== END 2024-08-03 18:13 | disposition home or self-care (01) ==
LOC: JD.ED 15:20
DX: M79.605 Pain in left leg (principal); I13.2 Hypertensive heart and chronic kidney disease with heart failure and with stage 5 chronic kidney disease, or end stage renal disease; I50.9 Heart failure, unspecified; N18.6 End stage renal disease; I48.91 Unspecified atrial fibrillation; I25.10 Atherosclerotic heart disease of native coronary artery without angina pectoris; E78.00 Pure hypercholesterolemia, unspecified; K21.9 Gastro-esophageal reflux disease without esophagitis; E11.22 Type 2 diabetes mellitus with diabetic chronic kidney disease; E66.9 Obesity, unspecified; Z86.16 Personal history of COVID-19; F17.210 Nicotine dependence, cigarettes, uncomplicated; Z79.899 Other long term (current) drug therapy; Z79.84 Long term (current) use of oral hypoglycemic drugs; Z79.4 Long term (current) use of insulin; Z79.02 Long term (current) use of antithrombotics/antiplatelets; Z88.0 Allergy status to penicillin; Z88.2 Allergy status to sulfonamides; Z68.29 Body mass index [BMI] 29.0-29.9, adult
CPT/HCPCS: 73590; 93971; 99284; A9270

== ENCOUNTER 2024-08-09 11:56 | Emergency (ER) | payer OTHER ==
[2024-08-09] MEDS ORDERED: Naloxone 0.4 MG/ML SDV IVPUSH PRN ×2 (12:33→16:18)
[2024-08-09 12:35] LABS: BASOPHILS ABSOLUTE AUTO 0.1 K/mm3 (0.0-0.2); BASOPHILS PERCENT AUTO 0.9 % (0.0-1.0); EOSINOPHILS ABSOLUTE AUTO 0.1 K/mm3 (0.0-0.4); HEMATOCRIT 47.7 % (42.0-52.0); HEMOGLOBIN 14.9 gm/dl (14.0-18.0); IMMATURE GRAN ABSOLUTE AUTO 0.03 K/mm3 (0.00-0.05); IMMATURE GRAN PERCENT AUTO 0.6 % (0.0-0.4); LYMPHOCYTES PERCENT AUTO 18.7 % (24.0-44.0); MEAN CORPUSCULAR HGB CONC 31.2 g/dl (32.0-36.0); MEAN CORPUSCULAR VOLUME 99.2 fl (83.0-99.0); MEAN PLATELET VOLUME 11.6 fl (9.4-12.4); MONOCYTES ABSOLUTE AUTO 0.5 K/mm3 (0.0-0.8); MONOCYTES PERCENT AUTO 9.1 % (0.0-8.0); NEUTROPHILS ABSOLUTE AUTO 3.7 K/mm3 (1.8-7.7); NEUTROPHILS PERCENT AUTO 68.7 % (41.0-71.0); PLATELET COUNT,PLT 195 K/mm3 (150-400); RED BLOOD CELL COUNT 4.81 M/mm3 (4.52-5.90); WHITE BLOOD CELL COUNT,WBC 5.41 K/mm3 (3.9-11.3)
[2024-08-09] MEDS: Morphine 4 MG/ML Syringe IVPUSH ONE (12:44)
[2024-08-09] MEDS: Sodium Chloride 0.9% 10 ML Syringe FLUSH PRN (12:44)
[2024-08-09 13:10] LABS: A/G RATIO 1.1 (1-2); ALBUMIN 4.3 g/dl (3.4-5.0); BILIRUBIN TOTAL 0.4 mg/dL (0.2-1.0); BUN/CREATININE RATIO 4.4 (14-18); CALCIUM 9.6 mg/dL (8.5-10.1); EST CRCL DRUG DOSING (CG) 15.63 mL/min; MAGNESIUM 2.1 mg/dL (1.8-2.4); PROTEIN TOTAL,TP 8.4 g/dl (6.4-8.2)
[2024-08-09 13:11] LABS: CREATININE 4.8 mg/dL (0.7-1.3)
[2024-08-09] MEDS: Ondansetron 4 MG/2 ML SDV IVPUSH ONE (15:34)
[2024-08-09] MEDS: HYDROmorphone 0.5 MG/0.5 ML Syringe IVPUSH ONE (16:38)
== END 2024-08-09 19:00 | disposition left against medical advice (07) ==
LOC: JD.ED 11:56
DX: R55 Syncope and collapse (principal); I48.91 Unspecified atrial fibrillation; E11.22 Type 2 diabetes mellitus with diabetic chronic kidney disease; I13.2 Hypertensive heart and chronic kidney disease with heart failure and with stage 5 chronic kidney disease, or end stage renal disease; I50.9 Heart failure, unspecified; N18.6 End stage renal disease; I25.119 Atherosclerotic heart disease of native coronary artery with unspecified angina pectoris; K21.9 Gastro-esophageal reflux disease without esophagitis; E78.00 Pure hypercholesterolemia, unspecified; M19.90 Unspecified osteoarthritis, unspecified site; E66.9 Obesity, unspecified; Z86.16 Personal history of COVID-19; Z95.5 Presence of coronary angioplasty implant and graft; Z79.02 Long term (current) use of antithrombotics/antiplatelets; Z79.82 Long term (current) use of aspirin; Z79.4 Long term (current) use of insulin; Z79.899 Other long term (current) drug therapy; Z88.0 Allergy status to penicillin; Z88.2 Allergy status to sulfonamides
CPT/HCPCS: 36415; 70450; 70450-26; 71045; 71045-26; 72125; 72125-26; 73562-26-RT; 73562-RT; 80053; 83735; 84484; 85025; 93005; 96374; 96375; 99284-25; J1170; J2270; J2405; J3490

== ENCOUNTER 2024-08-25 00:24 | Emergency (ER) | payer OTHER ==
[2024-08-25] MEDS: Lidocaine 1% 10 ML MDV INJECT ONE (01:23)
[2024-08-25] MEDS: HYDROmorphone 1 MG/ML Syringe IM ONE (01:23)
== END 2024-08-25 03:11 | disposition home or self-care (01) ==
LOC: JD.ED 00:24
DX: T82.49XA Other complication of vascular dialysis catheter, initial encounter (principal); R07.89 Other chest pain; K21.9 Gastro-esophageal reflux disease without esophagitis; I11.0 Hypertensive heart disease with heart failure; I50.9 Heart failure, unspecified; E78.00 Pure hypercholesterolemia, unspecified; I25.10 Atherosclerotic heart disease of native coronary artery without angina pectoris; E11.9 Type 2 diabetes mellitus without complications; M19.90 Unspecified osteoarthritis, unspecified site; E66.9 Obesity, unspecified; Z68.28 Body mass index [BMI] 28.0-28.9, adult; Z90.49 Acquired absence of other specified parts of digestive tract; Z79.890 Hormone replacement therapy; Z79.82 Long term (current) use of aspirin; Z88.0 Allergy status to penicillin; Z88.2 Allergy status to sulfonamides; Z79.899 Other long term (current) drug therapy; Z79.4 Long term (current) use of insulin
CPT/HCPCS: 12001; 71045; 71045-26; 96372; 99283; J3490

== ENCOUNTER 2024-09-07 17:55 | Emergency (ER) | payer OTHER ==
[2024-09-07] MEDS ORDERED: Sodium Chloride 0.9% 10 ML Syringe FLUSH PRN (18:47)
[2024-09-07 19:23] LABS: HEMATOCRIT 37.5 % (42.0-52.0); HEMOGLOBIN 11.6 gm/dl (14.0-18.0); MEAN CORPUSCULAR HEMOGLOBIN 30.3 pg (28.0-32.0); MEAN CORPUSCULAR HGB CONC 30.9 g/dl (32.0-36.0); MEAN CORPUSCULAR VOLUME 97.9 fl (83.0-99.0); MEAN PLATELET VOLUME 11.7 fl (9.4-12.4); NRBC ABSOLUTE 0.02 (0.00-0.02); NRBC PERCENT 0.1 % (0.0-0.2); PLATELET COUNT,PLT 185 K/mm3 (150-400); RED BLOOD CELL COUNT 3.83 M/mm3 (4.52-5.90)
[2024-09-07 19:39] LABS: INR 0.97; PROTHROMBIN TIME 10.3 SECONDS (9.7-12.0)
[2024-09-07 19:48] LABS: ALBUMIN 3.9 g/dl (3.4-5.0); ANION GAP 22.8 (5-15); BILIRUBIN TOTAL 0.6 mg/dL (0.2-1.0); BUN/CREATININE RATIO 5.2 (14-18); C-REACTIVE PROTEIN 7.97 mg/dL (<0.30); CREATININE 10.6 mg/dL (0.7-1.3); EST CRCL DRUG DOSING (CG) 7.27 mL/min; POTASSIUM,K 5.8 mEq/L (3.5-5.1)
[2024-09-07] MEDS: HYDROmorphone 0.5 MG/0.5 ML Syringe IVPUSH ONE (20:03)
[2024-09-07] MEDS: Ondansetron 4 MG/2 ML SDV IVPUSH ONE (20:03)
[2024-09-07 20:11] LABS: BAND PERCENT MAN 0 % (0-10); BASOPHILS PERCENT MAN 0 (0.2-1.2); EOSINOPHILS PERCENT MAN 0 % (0.8-7.0); LYMPHOCYTES % ATYPICAL MANUAL 0 %; LYMPHOCYTES PERCENT MAN 5 % (20-40); MONOCYTES PERCENT MAN 7 % (2-10)
[2024-09-07 20:12] LABS: ANISOCYTOSIS 1+ SLIGHT; OVALOCYTES 1+ SLIGHT; PLATELET COUNT ESTIMATE ADEQUATE; POIKILOCYTOSIS 1+ SLIGHT
[2024-09-07 21:17] LABS: CORONAVIRUS COVID-19 NAA NEGATIVE (NEGATIVE); INFLUENZA A NAA NEGATIVE (NEGATIVE); RESPIRATORY SYNCYTIAL VIR NAA NEGATIVE (NEGATIVE)
[2024-09-07] MEDS: Albuterol/Ipratropium 3.0-0.5 MG/3 ML Neb Soln NEB ONE (22:33)
[2024-09-07] MEDS: Levofloxacin/Dextrose 5%-Water 750 MG in Premix Bag 1 BAG IV ONE (23:50)
[2024-09-07] MEDS: Aspirin 81 MG Tab.Chew PO ONE (23:50)
[2024-09-08] MEDS: Heparin Sodium 5,000 Units/ML Vial IVPUSH ONE (01:33)
[2024-09-08] MEDS: Heparin Sodium/D5W 25,000 UNITS/500 ML BAG IV SCH (01:34)
== END 2024-09-08 01:56 ==
LOC: JD.ED 17:55
DX: I13.2 Hypertensive heart and chronic kidney disease with heart failure and with stage 5 chronic kidney disease, or end stage renal disease (principal); I50.9 Heart failure, unspecified; N18.6 End stage renal disease; R79.89 Other specified abnormal findings of blood chemistry; I25.10 Atherosclerotic heart disease of native coronary artery without angina pectoris; E78.00 Pure hypercholesterolemia, unspecified; K21.9 Gastro-esophageal reflux disease without esophagitis; E11.22 Type 2 diabetes mellitus with diabetic chronic kidney disease; E05.90 Thyrotoxicosis, unspecified without thyrotoxic crisis or storm; E66.9 Obesity, unspecified; Z90.49 Acquired absence of other specified parts of digestive tract; Z99.2 Dependence on renal dialysis; Z95.1 Presence of aortocoronary bypass graft; Z79.4 Long term (current) use of insulin; Z79.899 Other long term (current) drug therapy; Z79.82 Long term (current) use of aspirin; Z79.890 Hormone replacement therapy; Z88.0 Allergy status to penicillin; Z88.2 Allergy status to sulfonamides; Z68.28 Body mass index [BMI] 28.0-28.9, adult
CPT/HCPCS: 0241U; 36415; 71045; 80053; 83605; 84484; 85007; 85027; 85610; 85730; 86140; 87040; 93005; 94640; 96365; 96367; 96375; 99285; A9270; J1171; J1644; J1956; J2405; 93010; J7620-GY

== ENCOUNTER 2024-09-16 16:56 | Emergency (ER) | payer OTHER ==
[2024-09-16] MEDS: Metoclopramide 10 MG/2 ML SDV IVPUSH ONE (17:48)
[2024-09-16] MEDS: HYDROmorphone 1 MG/ML Syringe IVPUSH ONE (17:49)
[2024-09-16] MEDS: diphenhydrAMINE 50 MG/ML SDV IVPUSH ONE (17:49)
[2024-09-16 18:02] LABS: BASOPHILS ABSOLUTE AUTO 0.1 K/mm3 (0.0-0.2); BASOPHILS PERCENT AUTO 0.8 % (0.0-1.0); EOSINOPHILS ABSOLUTE AUTO 0.2 K/mm3 (0.0-0.4); EOSINOPHILS PERCENT AUTO 1.7 % (0.0-6.0); HEMATOCRIT 38.6 % (42.0-52.0); HEMOGLOBIN 11.9 gm/dl (14.0-18.0); IMMATURE GRAN ABSOLUTE AUTO 0.09 K/mm3 (0.00-0.05); IMMATURE GRAN PERCENT AUTO 0.8 % (0.0-0.4); LYMPHOCYTES ABSOLUTE AUTO 1.4 K/mm3 (1.0-4.8); LYMPHOCYTES PERCENT AUTO 12.8 % (24.0-44.0); MEAN CORPUSCULAR HEMOGLOBIN 29.8 pg (28.0-32.0); MEAN CORPUSCULAR HGB CONC 30.8 g/dl (32.0-36.0); MEAN CORPUSCULAR VOLUME 96.7 fl (83.0-99.0); MEAN PLATELET VOLUME 11.8 fl (9.4-12.4); MONOCYTES ABSOLUTE AUTO 1.5 K/mm3 (0.0-0.8); MONOCYTES PERCENT AUTO 13.6 % (0.0-8.0); NEUTROPHILS ABSOLUTE AUTO 7.5 K/mm3 (1.8-7.7); NEUTROPHILS PERCENT AUTO 70.3 % (41.0-71.0); NRBC ABSOLUTE 0.02 (0.00-0.02); NRBC PERCENT 0.2 % (0.0-0.2); PLATELET COUNT,PLT 264 K/mm3 (150-400); RED BLOOD CELL COUNT 3.99 M/mm3 (4.52-5.90); WHITE BLOOD CELL COUNT,WBC 10.66 K/mm3 (3.9-11.3)
[2024-09-16 18:08] LABS: INR 1.03; PROTHROMBIN TIME 10.9 SECONDS (9.7-12.0)
[2024-09-16 18:09] LABS: PTT,PARTIAL THROMBOPLSTIN TIME 29.6 SECONDS (21.7-31.4)
[2024-09-16 18:13] LABS: A/G RATIO 0.7 (1-2); ALBUMIN 3.2 g/dl (3.4-5.0); ANION GAP 16.8 (5-15); BILIRUBIN TOTAL 0.4 mg/dL (0.2-1.0); BUN/CREATININE RATIO 4.5 (14-18); CREATININE 9.5 mg/dL (0.7-1.3); EST CRCL DRUG DOSING (CG) 7.85 mL/min; MAGNESIUM 2.4 mg/dL (1.8-2.4); POTASSIUM,K 4.8 mEq/L (3.5-5.1); PROTEIN TOTAL,TP 7.8 g/dl (6.4-8.2)
[2024-09-16 18:33] LABS: LACTIC ACID 2.6 mmol/L (0.4-2.0)
[2024-09-16] MEDS: HYDROmorphone 0.5 MG/0.5 ML Syringe IVPUSH ONE (20:43)
[2024-09-17] MEDS: HYDROmorphone 0.5 MG/0.5 ML Syringe IVPUSH ONE ×2 (08:33→11:19)
[2024-09-17 16:05] LABS: BASOPHILS ABSOLUTE AUTO 0.1 K/mm3 (0.0-0.2); BASOPHILS PERCENT AUTO 0.7 % (0.0-1.0); EOSINOPHILS ABSOLUTE AUTO 0.2 K/mm3 (0.0-0.4); EOSINOPHILS PERCENT AUTO 1.9 % (0.0-6.0); HEMATOCRIT 39.6 % (42.0-52.0); IMMATURE GRAN PERCENT AUTO 0.9 % (0.0-0.4); LYMPHOCYTES ABSOLUTE AUTO 1.6 K/mm3 (1.0-4.8); LYMPHOCYTES PERCENT AUTO 14.9 % (24.0-44.0); MEAN CORPUSCULAR HEMOGLOBIN 29.9 pg (28.0-32.0); MEAN CORPUSCULAR HGB CONC 30.3 g/dl (32.0-36.0); MEAN CORPUSCULAR VOLUME 98.5 fl (83.0-99.0); MEAN PLATELET VOLUME 11.5 fl (9.4-12.4); MONOCYTES ABSOLUTE AUTO 1.7 K/mm3 (0.0-0.8); MONOCYTES PERCENT AUTO 15.6 % (0.0-8.0); NEUTROPHILS ABSOLUTE AUTO 7.1 K/mm3 (1.8-7.7); NRBC ABSOLUTE 0.03 (0.00-0.02); NRBC PERCENT 0.3 % (0.0-0.2); PLATELET COUNT,PLT 284 K/mm3 (150-400); RED BLOOD CELL COUNT 4.02 M/mm3 (4.52-5.90); WHITE BLOOD CELL COUNT,WBC 10.79 K/mm3 (3.9-11.3)
[2024-09-17 16:34] LABS: A/G RATIO 0.7 (1-2); ALBUMIN 3.2 g/dl (3.4-5.0); ANION GAP 18.4 (5-15); BILIRUBIN TOTAL 0.4 mg/dL (0.2-1.0); CALCIUM 9.7 mg/dL (8.5-10.1); EST CRCL DRUG DOSING (CG) 6.22 mL/min; POTASSIUM,K 5.4 mEq/L (3.5-5.1); PROTEIN TOTAL,TP 7.9 g/dl (6.4-8.2)
[2024-09-17] MEDS ORDERED: HYDROmorphone 0.5 MG/0.5 ML Syringe IVPUSH ONE (19:28)
== END 2024-09-17 20:15 ==
LOC: JD.ED 16:56
DX: S70.01XA Contusion of right hip, initial encounter (principal); S00.03XA Contusion of scalp, initial encounter; S40.012A Contusion of left shoulder, initial encounter; I12.0 Hypertensive chronic kidney disease with stage 5 chronic kidney disease or end stage renal disease; N18.9 Chronic kidney disease, unspecified; I50.9 Heart failure, unspecified; I25.10 Atherosclerotic heart disease of native coronary artery without angina pectoris; E66.9 Obesity, unspecified; E11.9 Type 2 diabetes mellitus without complications; Z88.0 Allergy status to penicillin; Z79.4 Long term (current) use of insulin; Z79.890 Hormone replacement therapy; Z79.899 Other long term (current) drug therapy; Z90.49 Acquired absence of other specified parts of digestive tract; Z68.22 Body mass index [BMI] 22.0-22.9, adult; W19.XXXA Unspecified fall, initial encounter; Y92.009 Unspecified place in unspecified non-institutional (private) residence as the place of occurrence of the external cause
CPT/HCPCS: 36415; 70450; 71045; 72125; 72128; 72131; 72170; 73030; 73060; 73552; 73700; 80053; 83605; 83735; 84484; 85025; 85610; 85730; 86850; 86900; 86901; 87040; 93005; 96374; 96375; 96376; 99285; J1171; J1200; J2765; 93010

== ENCOUNTER 2024-10-07 05:31 | Emergency (ER) | payer OTHER ==
[2024-10-07] MEDS ORDERED: Sodium Chloride 0.9% 10 ML Syringe FLUSH PRN (05:56)
[2024-10-07 06:03] LABS: BASOPHILS ABSOLUTE AUTO 0.1 K/mm3 (0.0-0.2); BASOPHILS PERCENT AUTO 0.8 % (0.0-1.0); EOSINOPHILS ABSOLUTE AUTO 0.2 K/mm3 (0.0-0.4); EOSINOPHILS PERCENT AUTO 1.9 % (0.0-6.0); HEMATOCRIT 36.1 % (42.0-52.0); HEMOGLOBIN 11.2 gm/dl (14.0-18.0); IMMATURE GRAN ABSOLUTE AUTO 0.05 K/mm3 (0.00-0.05); IMMATURE GRAN PERCENT AUTO 0.4 % (0.0-0.4); LYMPHOCYTES PERCENT AUTO 8.7 % (24.0-44.0); MEAN CORPUSCULAR HEMOGLOBIN 29.9 pg (28.0-32.0); MEAN CORPUSCULAR VOLUME 96.3 fl (83.0-99.0); MEAN PLATELET VOLUME 10.9 fl (9.4-12.4); MONOCYTES ABSOLUTE AUTO 0.9 K/mm3 (0.0-0.8); MONOCYTES PERCENT AUTO 7.7 % (0.0-8.0); NEUTROPHILS ABSOLUTE AUTO 9.2 K/mm3 (1.8-7.7); NEUTROPHILS PERCENT AUTO 80.5 % (41.0-71.0); PLATELET COUNT,PLT 171 K/mm3 (150-400); RED BLOOD CELL COUNT 3.75 M/mm3 (4.52-5.90); WHITE BLOOD CELL COUNT,WBC 11.44 K/mm3 (3.9-11.3)
[2024-10-07 06:16] LABS: A/G RATIO 0.9 (1-2); ALBUMIN 3.6 g/dl (3.4-5.0); ANION GAP 18.3 (5-15); BILIRUBIN TOTAL 0.5 mg/dL (0.2-1.0); BUN/CREATININE RATIO 7.7 (14-18); C-REACTIVE PROTEIN 1.2 mg/dL (<0.30); CALCIUM 9.6 mg/dL (8.5-10.1); EST CRCL DRUG DOSING (CG) 10.57 mL/min; PROTEIN TOTAL,TP 7.8 g/dl (6.4-8.2)
[2024-10-07 06:18] LABS: POTASSIUM,K 6.3 mEq/L (3.5-5.1)
[2024-10-07] MEDS: Morphine 2 MG/ML SYRINGE IVPUSH ONE (06:24)
[2024-10-07] MEDS: Albuterol/Ipratropium 3.0-0.5 MG/3 ML Neb Soln NEB ONE (06:32)
[2024-10-07 06:39] LABS: CORONAVIRUS COVID-19 NAA NEGATIVE (NEGATIVE); INFLUENZA A NAA NEGATIVE (NEGATIVE); RESPIRATORY SYNCYTIAL VIR NAA NEGATIVE (NEGATIVE)
== END 2024-10-07 08:26 ==
LOC: JD.ED 05:31
DX: R09.02 Hypoxemia (principal); I13.2 Hypertensive heart and chronic kidney disease with heart failure and with stage 5 chronic kidney disease, or end stage renal disease; I50.9 Heart failure, unspecified; N18.6 End stage renal disease; E11.22 Type 2 diabetes mellitus with diabetic chronic kidney disease; I48.91 Unspecified atrial fibrillation; E78.00 Pure hypercholesterolemia, unspecified; K21.9 Gastro-esophageal reflux disease without esophagitis; M19.90 Unspecified osteoarthritis, unspecified site; E66.9 Obesity, unspecified; Z68.31 Body mass index [BMI] 31.0-31.9, adult; Z91.158 Patient's noncompliance with renal dialysis for other reason; Z99.2 Dependence on renal dialysis; Z86.16 Personal history of COVID-19; Z90.49 Acquired absence of other specified parts of digestive tract; Z79.4 Long term (current) use of insulin; Z79.82 Long term (current) use of aspirin; Z79.899 Other long term (current) drug therapy; Z88.0 Allergy status to penicillin; Z88.2 Allergy status to sulfonamides
CPT/HCPCS: 0241U; 36415; 71045; 80053; 84484; 85025; 86140; 93005; 94640; 96374; 99285; J2270; J7620-GY

== ENCOUNTER 2024-12-26 07:03 | Emergency (ER) | payer MEDICARE, OTHER ==
[2024-12-26] MEDS ORDERED: Sodium Chloride 0.9% 10 ML Syringe FLUSH PRN (07:30)
[2024-12-26 07:53] LABS: BASOPHILS ABSOLUTE AUTO 0.1 K/mm3 (0.0-0.2); BASOPHILS PERCENT AUTO 0.5 % (0.0-1.0); EOSINOPHILS ABSOLUTE AUTO 0.1 K/mm3 (0.0-0.4); EOSINOPHILS PERCENT AUTO 1.2 % (0.0-6.0); HEMATOCRIT 37.4 % (42.0-52.0); HEMOGLOBIN 11.5 gm/dl (14.0-18.0); IMMATURE GRAN ABSOLUTE AUTO 0.05 K/mm3 (0.00-0.05); IMMATURE GRAN PERCENT AUTO 0.5 % (0.0-0.4); LYMPHOCYTES ABSOLUTE AUTO 0.6 K/mm3 (1.0-4.8); MEAN CORPUSCULAR HGB CONC 30.7 g/dl (32.0-36.0); MEAN CORPUSCULAR VOLUME 97.7 fl (83.0-99.0); MEAN PLATELET VOLUME 10.5 fl (9.4-12.4); MONOCYTES ABSOLUTE AUTO 0.9 K/mm3 (0.0-0.8); MONOCYTES PERCENT AUTO 7.9 % (0.0-8.0); NEUTROPHILS ABSOLUTE AUTO 9.3 K/mm3 (1.8-7.7); NEUTROPHILS PERCENT AUTO 84.9 % (41.0-71.0); PLATELET COUNT,PLT 190 K/mm3 (150-400); RED BLOOD CELL COUNT 3.83 M/mm3 (4.52-5.90); WHITE BLOOD CELL COUNT,WBC 10.92 K/mm3 (3.9-11.3)
[2024-12-26 08:15] LABS: A/G RATIO 0.8 (1-2); ALBUMIN 3.3 g/dl (3.4-5.0); ANION GAP 12.9 (5-15); BILIRUBIN TOTAL 0.5 mg/dL (0.2-1.0); BUN/CREATININE RATIO 4.1 (14-18); CALCIUM 8.8 mg/dL (8.5-10.1); EST CRCL DRUG DOSING (CG) 7.63 mL/min; POTASSIUM,K 5.9 mEq/L (3.5-5.1); PROTEIN TOTAL,TP 7.3 g/dl (6.4-8.2)
[2024-12-26 12:25] LABS: APPEARANCE,URINE CLEAR (Clear); BILIRUBIN,URINE NEGATIVE (Negative); COLOR,URINE YELLOW (Yellow); GLUCOSE,URINE TRACE (Negative); KETONES,URINE NEGATIVE (Negative); LEUKOCYTE ESTERASE,URINE NEGATIVE (Negative); NITRITE,URINE NEGATIVE (Negative); OCCULT BLOOD,URINE TRACE-INTACT (Negative); PROTEIN,URINE 3+ (Negative); UROBILINOGEN,URINE 0.2 (0.2-1.0)
[2024-12-26] MEDS: Furosemide 40 MG/4 ML VIAL IVPUSH ONE (12:42)
[2024-12-26 12:50] LABS: RBC,URINE 0-5 /hpf (0-5); WBC,URINE 0-5 /hpf (0-5)
[2024-12-26 12:51] LABS: BACTERIA,URINE FEW /hpf (FEW); MUCUS,URINE NOT SEEN /hpf (FEW); RENAL EPITHELIAL CELLS,URINE 0-5 /hpf (0-5); SQUAMOUS EPITHELIAL CELLS,UR 0-5 /hpf (0-5)
[2024-12-26] MEDS: Acetaminophen 325 MG Tab PO ONE (13:33)
[2024-12-27] MEDS ORDERED: Furosemide 40 MG/4 ML VIAL IVPUSH ONE (12:25)
== END 2024-12-26 14:58 ==
LOC: JD.ED 07:03
DX: S09.90XA Unspecified injury of head, initial encounter (principal); S00.31XA Abrasion of nose, initial encounter; I11.0 Hypertensive heart disease with heart failure; I50.9 Heart failure, unspecified; M25.551 Pain in right hip; M25.552 Pain in left hip; E87.5 Hyperkalemia; R05.9 Cough, unspecified; I25.10 Atherosclerotic heart disease of native coronary artery without angina pectoris; I25.2 Old myocardial infarction; K21.9 Gastro-esophageal reflux disease without esophagitis; E11.9 Type 2 diabetes mellitus without complications; E05.90 Thyrotoxicosis, unspecified without thyrotoxic crisis or storm; E78.00 Pure hypercholesterolemia, unspecified; E66.9 Obesity, unspecified; F17.210 Nicotine dependence, cigarettes, uncomplicated; Z86.16 Personal history of COVID-19; Z91.158 Patient's noncompliance with renal dialysis for other reason; Z90.49 Acquired absence of other specified parts of digestive tract; Z79.4 Long term (current) use of insulin; Z79.890 Hormone replacement therapy; Z79.82 Long term (current) use of aspirin; Z79.899 Other long term (current) drug therapy; Z88.0 Allergy status to penicillin; Z88.2 Allergy status to sulfonamides; Z99.2 Dependence on renal dialysis; Z68.29 Body mass index [BMI] 29.0-29.9, adult; W01.0XXA Fall on same level from slipping, tripping and stumbling without subsequent striking against object, initial encounter
CPT/HCPCS: 36415; 70450; 71045; 72125; 72170; 73552; 80053; 81001; 83880; 85025; 87428; 96374; 99285; J1940

== ENCOUNTER 2025-01-22 12:30 | Emergency (ER) | payer OTHER ==
[2025-01-22 13:29] LABS: BASOPHILS ABSOLUTE AUTO 0.1 K/mm3 (0.0-0.2); BASOPHILS PERCENT AUTO 0.8 % (0.0-1.0); EOSINOPHILS ABSOLUTE AUTO 0.2 K/mm3 (0.0-0.4); EOSINOPHILS PERCENT AUTO 1.5 % (0.0-6.0); HEMATOCRIT 33.3 % (42.0-52.0); HEMOGLOBIN 10.4 gm/dl (14.0-18.0); LYMPHOCYTES ABSOLUTE AUTO 0.9 K/mm3 (1.0-4.8); LYMPHOCYTES PERCENT AUTO 9.3 % (24.0-44.0); MEAN CORPUSCULAR HEMOGLOBIN 29.9 pg (28.0-32.0); MEAN CORPUSCULAR HGB CONC 31.2 g/dl (32.0-36.0); MEAN CORPUSCULAR VOLUME 95.7 fl (83.0-99.0); MEAN PLATELET VOLUME 11.9 fl (9.4-12.4); MONOCYTES ABSOLUTE AUTO 0.8 K/mm3 (0.0-0.8); MONOCYTES PERCENT AUTO 7.6 % (0.0-8.0); NEUTROPHILS PERCENT AUTO 79.8 % (41.0-71.0); PLATELET COUNT,PLT 132 K/mm3 (150-400); RED BLOOD CELL COUNT 3.48 M/mm3 (4.52-5.90); WHITE BLOOD CELL COUNT,WBC 9.99 K/mm3 (3.9-11.3)
[2025-01-22 14:29] LABS: A/G RATIO 0.9 (1-2); ALBUMIN 3.4 g/dl (3.4-5.0); ANION GAP 16.9 (5-15); BILIRUBIN TOTAL 0.6 mg/dL (0.2-1.0); BUN/CREATININE RATIO 5.5 (14-18); CALCIUM 9.3 mg/dL (8.5-10.1); CREATININE 8.9 mg/dL (0.7-1.3); EST CRCL DRUG DOSING (CG) 8.58 mL/min; MAGNESIUM 2.5 mg/dL (1.8-2.4); POTASSIUM,K 5.9 mEq/L (3.5-5.1); PROTEIN TOTAL,TP 7.3 g/dl (6.4-8.2)
[2025-01-22] MEDS: Furosemide 40 MG/4 ML VIAL IVPUSH ONE (16:18)
[2025-01-22] MEDS: Acetaminophen 325 MG Tab PO ONE ×2 (16:19→22:20)
[2025-01-22 18:59] LABS: APPEARANCE,URINE CLEAR (Clear); BILIRUBIN,URINE NEGATIVE (Negative); COLOR,URINE YELLOW (Yellow); GLUCOSE,URINE TRACE (Negative); KETONES,URINE NEGATIVE (Negative); LEUKOCYTE ESTERASE,URINE NEGATIVE (Negative); NITRITE,URINE NEGATIVE (Negative); OCCULT BLOOD,URINE NEGATIVE (Negative); PROTEIN,URINE 3+ (Negative); UROBILINOGEN,URINE 0.2 (0.2-1.0)
[2025-01-22 19:17] LABS: BACTERIA,URINE FEW /hpf (FEW); MUCUS,URINE FEW /hpf (FEW); RBC,URINE 0-5 /hpf (0-5); SQUAMOUS EPITHELIAL CELLS,UR 0-5 /hpf (0-5); WBC,URINE 0-5 /hpf (0-5)
[2025-01-22] MEDS: Acetaminophen 325 MG Tab ONE (23:52)
[2025-01-22] MEDS: fentaNYL 100 MCG/2 ML SDV IVPUSH ONE (23:56)
[2025-01-23] MEDS: fentaNYL 100 MCG/2 ML SDV IVPUSH ONE (03:33)
[2025-01-23] MEDS: oxyCODONE 5 MG Tab PO PRN (09:54)
[2025-01-23] MEDS: Metoprolol Succinate 50 MG Tab.ER PO SCH (10:40)
[2025-01-23] MEDS: Clopidogrel 75 MG Tab PO SCH (10:43)
[2025-01-23] MEDS: Sodium Zirconium Cyclosilicate 10 GM Packet PO ONE (10:47)
[2025-01-23] MEDS: Ondansetron 4 MG/2 ML SDV IVPUSH ONE (11:27)
[2025-01-23] MEDS ORDERED: Gabapentin 100 MG Cap PO SCH (21:00)
== END 2025-01-23 11:40 ==
LOC: JD.ED 12:30
DX: E87.70 Fluid overload, unspecified (principal); I11.0 Hypertensive heart disease with heart failure; I50.9 Heart failure, unspecified; I25.810 Atherosclerosis of coronary artery bypass graft(s) without angina pectoris; E66.9 Obesity, unspecified; E11.9 Type 2 diabetes mellitus without complications; Z88.0 Allergy status to penicillin; Z88.2 Allergy status to sulfonamides; Z79.899 Other long term (current) drug therapy; Z86.16 Personal history of COVID-19; Z90.49 Acquired absence of other specified parts of digestive tract; Z68.29 Body mass index [BMI] 29.0-29.9, adult
CPT/HCPCS: 36415; 71045; 73502; 80053; 81001; 83690; 83735; 84100; 84484; 85025; 87428; 93005; 96374; 96375; 96376; 99285; A9270; J1940; J2405; J3010; 93010; J3490

== ENCOUNTER 2025-02-04 13:11 | Emergency (ER) | payer OTHER ==
[2025-02-04] MEDS ORDERED: Sodium Chloride 0.9% 10 ML Syringe FLUSH PRN (13:40)
[2025-02-04] MEDS: Albuterol/Ipratropium 3.0-0.5 MG/3 ML Neb Soln NEB SCH (14:05)
[2025-02-04 14:16] LABS: BASOPHILS ABSOLUTE AUTO 0.1 K/mm3 (0.0-0.2); BASOPHILS PERCENT AUTO 0.5 % (0.0-1.0); EOSINOPHILS ABSOLUTE AUTO 0.3 K/mm3 (0.0-0.4); EOSINOPHILS PERCENT AUTO 2.5 % (0.0-6.0); HEMATOCRIT 30.4 % (42.0-52.0); HEMOGLOBIN 9.3 gm/dl (14.0-18.0); IMMATURE GRAN ABSOLUTE AUTO 0.09 K/mm3 (0.00-0.05); IMMATURE GRAN PERCENT AUTO 0.8 % (0.0-0.4); LYMPHOCYTES ABSOLUTE AUTO 1.3 K/mm3 (1.0-4.8); LYMPHOCYTES PERCENT AUTO 11.8 % (24.0-44.0); MEAN CORPUSCULAR HEMOGLOBIN 29.9 pg (28.0-32.0); MEAN CORPUSCULAR HGB CONC 30.6 g/dl (32.0-36.0); MEAN CORPUSCULAR VOLUME 97.7 fl (83.0-99.0); MEAN PLATELET VOLUME 11.3 fl (9.4-12.4); MONOCYTES PERCENT AUTO 8.7 % (0.0-8.0); NEUTROPHILS ABSOLUTE AUTO 8.4 K/mm3 (1.8-7.7); NEUTROPHILS PERCENT AUTO 75.7 % (41.0-71.0); PLATELET COUNT,PLT 162 K/mm3 (150-400); RED BLOOD CELL COUNT 3.11 M/mm3 (4.52-5.90)
[2025-02-04 14:47] LABS: A/G RATIO 0.8 (1-2); ALBUMIN 3.2 g/dl (3.4-5.0); ANION GAP 11.6 (5-15); BILIRUBIN TOTAL 0.7 mg/dL (0.2-1.0); BUN/CREATININE RATIO 6.6 (14-18); CALCIUM 8.9 mg/dL (8.5-10.1); CREATININE 8.3 mg/dL (0.7-1.3); EST CRCL DRUG DOSING (CG) 9.2 mL/min; POTASSIUM,K 5.6 mEq/L (3.5-5.1); PROTEIN TOTAL,TP 7.1 g/dl (6.4-8.2)
[2025-02-04] MEDS: Furosemide 40 MG/4 ML VIAL ONE (16:41)
[2025-02-05] MEDS ORDERED: Furosemide 40 MG/4 ML VIAL IVPUSH ONE (15:26)
== END 2025-02-04 18:40 ==
LOC: JD.ED 13:11
DX: J44.9 Chronic obstructive pulmonary disease, unspecified (principal); D64.9 Anemia, unspecified; E11.65 Type 2 diabetes mellitus with hyperglycemia; I11.0 Hypertensive heart disease with heart failure; I50.9 Heart failure, unspecified; I48.91 Unspecified atrial fibrillation; E87.5 Hyperkalemia; I25.2 Old myocardial infarction; I25.10 Atherosclerotic heart disease of native coronary artery without angina pectoris; Z88.2 Allergy status to sulfonamides; Z88.0 Allergy status to penicillin; Z79.02 Long term (current) use of antithrombotics/antiplatelets; Z99.2 Dependence on renal dialysis; Z79.899 Other long term (current) drug therapy; Z95.1 Presence of aortocoronary bypass graft; Z86.16 Personal history of COVID-19
CPT/HCPCS: 36415; 71045; 80053; 83880; 84484; 85025; 93005; 94640; 99285; J1940; J7620; 93010; A9270-GY

== ENCOUNTER 2025-03-18 21:37 | Emergency (ER) | payer MEDICAID, MEDICARE, OTHER ==
[2025-03-18] MEDS ORDERED: Sodium Chloride 0.9% 10 ML Syringe FLUSH PRN (22:33)
[2025-03-18 22:57] LABS: BASOPHILS ABSOLUTE AUTO 0.1 K/mm3 (0.0-0.2); BASOPHILS PERCENT AUTO 0.7 % (0.0-1.0); EOSINOPHILS ABSOLUTE AUTO 0.2 K/mm3 (0.0-0.4); EOSINOPHILS PERCENT AUTO 2.1 % (0.0-6.0); HEMATOCRIT 34.6 % (42.0-52.0); HEMOGLOBIN 10.7 gm/dl (14.0-18.0); IMMATURE GRAN ABSOLUTE AUTO 0.06 K/mm3 (0.00-0.05); IMMATURE GRAN PERCENT AUTO 0.6 % (0.0-0.4); LYMPHOCYTES ABSOLUTE AUTO 1.2 K/mm3 (1.0-4.8); LYMPHOCYTES PERCENT AUTO 10.9 % (24.0-44.0); MEAN CORPUSCULAR HEMOGLOBIN 31.8 pg (28.0-32.0); MEAN CORPUSCULAR HGB CONC 30.9 g/dl (32.0-36.0); MEAN PLATELET VOLUME 11.8 fl (9.4-12.4); MONOCYTES ABSOLUTE AUTO 0.8 K/mm3 (0.0-0.8); MONOCYTES PERCENT AUTO 7.7 % (0.0-8.0); NEUTROPHILS ABSOLUTE AUTO 8.4 K/mm3 (1.8-7.7); PLATELET COUNT,PLT 149 K/mm3 (150-400); RED BLOOD CELL COUNT 3.36 M/mm3 (4.52-5.90); WHITE BLOOD CELL COUNT,WBC 10.72 K/mm3 (3.9-11.3)
[2025-03-18] MEDS: Albuterol/Ipratropium 3.0-0.5 MG/3 ML Neb Soln NEB SCH (23:01)
[2025-03-18] MEDS: methylPREDNISolone Sodium Succinate 125 MG/2 ML SDV IVPUSH ONE (23:20)
[2025-03-18] MEDS: Ketorolac 15 MG/ML SDV IVPUSH ONE (23:20)
[2025-03-18 23:22] LABS: A/G RATIO 0.9 (1-2); ALBUMIN 3.5 g/dl (3.4-5.0); ANION GAP 16.5 (5-15); BILIRUBIN TOTAL 0.8 mg/dL (0.2-1.0); BUN/CREATININE RATIO 7.9 (14-18); CREATININE 10.2 mg/dL (0.7-1.3); EST CRCL DRUG DOSING (CG) 7.48 mL/min; PROTEIN TOTAL,TP 7.4 g/dl (6.4-8.2)
[2025-03-18 23:29] LABS: POTASSIUM,K 6.5 mEq/L (3.5-5.1)
[2025-03-19] MEDS: Insulin Regular, Human 100 Units/ML 10 ML Vial IV ONE (00:21)
[2025-03-19] MEDS: Furosemide 40 MG/4 ML VIAL IVPUSH ONE (00:34)
== END 2025-03-19 01:43 | disposition left against medical advice (07) ==
LOC: JD.ED 21:37
DX: J44.9 Chronic obstructive pulmonary disease, unspecified (principal); E11.65 Type 2 diabetes mellitus with hyperglycemia; E87.5 Hyperkalemia; R94.4 Abnormal results of kidney function studies; I13.2 Hypertensive heart and chronic kidney disease with heart failure and with stage 5 chronic kidney disease, or end stage renal disease; N18.6 End stage renal disease; I50.9 Heart failure, unspecified; E11.22 Type 2 diabetes mellitus with diabetic chronic kidney disease; I25.2 Old myocardial infarction; I48.91 Unspecified atrial fibrillation; I25.10 Atherosclerotic heart disease of native coronary artery without angina pectoris; F17.210 Nicotine dependence, cigarettes, uncomplicated; Z99.2 Dependence on renal dialysis; Z88.0 Allergy status to penicillin; Z88.2 Allergy status to sulfonamides; Z79.02 Long term (current) use of antithrombotics/antiplatelets; Z79.899 Other long term (current) drug therapy; Z95.1 Presence of aortocoronary bypass graft; Z95.5 Presence of coronary angioplasty implant and graft; Z86.16 Personal history of COVID-19
CPT/HCPCS: 36415; 71045; 80053; 82947; 83880; 84484; 85025; 87428; 93005; 94640; 94762; 96374; 96375; 99285; J1815; J1885; J1938; J2919; J7620; 93010; 99284; A9270-GY

== ENCOUNTER 2025-04-04 06:15 | Emergency (ER) | payer OTHER ==
[2025-04-04] MEDS ORDERED: Sodium Chloride 0.9% 10 ML Syringe FLUSH PRN (06:32)
[2025-04-04] MEDS: Ondansetron 4 MG/2 ML SDV IVPUSH ONE (06:44)
[2025-04-04] MEDS: Sodium Chloride 0.9% 500 ML IV ONE (06:46)
[2025-04-04 07:06] LABS: BASOPHILS ABSOLUTE AUTO 0.1 K/mm3 (0.0-0.2); BASOPHILS PERCENT AUTO 0.5 % (0.0-1.0); EOSINOPHILS ABSOLUTE AUTO 0.2 K/mm3 (0.0-0.4); EOSINOPHILS PERCENT AUTO 0.9 % (0.0-6.0); HEMATOCRIT 44.9 % (42.0-52.0); IMMATURE GRAN ABSOLUTE AUTO 0.09 K/mm3 (0.00-0.05); IMMATURE GRAN PERCENT AUTO 0.5 % (0.0-0.4); LYMPHOCYTES PERCENT AUTO 5.3 % (24.0-44.0); MEAN CORPUSCULAR HEMOGLOBIN 31.1 pg (28.0-32.0); MEAN CORPUSCULAR HGB CONC 30.5 g/dl (32.0-36.0); MEAN CORPUSCULAR VOLUME 101.8 fl (83.0-99.0); MONOCYTES ABSOLUTE AUTO 1.4 K/mm3 (0.0-0.8); NEUTROPHILS ABSOLUTE AUTO 16.6 K/mm3 (1.8-7.7); NEUTROPHILS PERCENT AUTO 85.8 % (41.0-71.0); PLATELET COUNT,PLT 167 K/mm3 (150-400); RED BLOOD CELL COUNT 4.41 M/mm3 (4.52-5.90); WHITE BLOOD CELL COUNT,WBC 19.32 K/mm3 (3.9-11.3)
[2025-04-04 07:08] LABS: HEMOGLOBIN 13.7 gm/dl (14.0-18.0)
[2025-04-04 07:31] LABS: A/G RATIO 0.9 (1-2); ALBUMIN 3.8 g/dl (3.4-5.0); ANION GAP 18.7 (5-15); BILIRUBIN TOTAL 0.5 mg/dL (0.2-1.0); BUN/CREATININE RATIO 5.1 (14-18); CALCIUM 9.6 mg/dL (8.5-10.1); CREATININE 9.1 mg/dL (0.7-1.3); EST CRCL DRUG DOSING (CG) 8.39 mL/min; MAGNESIUM 2.7 mg/dL (1.8-2.4)
[2025-04-04 07:34] LABS: LACTIC ACID 1.5 mmol/L (0.4-2.0)
[2025-04-04] MEDS: Sodium Chloride 0.9% 10 ML Syringe FLUSH PRN (07:34)
[2025-04-04] MEDS: Iopamidol 612 MG/ML 30 ML SDV IVPUSH ONE (07:34)
[2025-04-04] MEDS: Iopamidol 612 MG/ML 100 ML Bottle IVPUSH ONE (07:34)
[2025-04-04 07:43] LABS: POTASSIUM,K 7.7 mEq/L (3.5-5.1)
[2025-04-04] MEDS: Albuterol/Ipratropium 3.0-0.5 MG/3 ML Neb Soln NEB ONE ×2 (08:06→10:15)
[2025-04-04] MEDS: Calcium Gluconate 10% 1 GM/10 ML SDV IVPUSH ONE (08:18)
[2025-04-04] MEDS: Furosemide 100 MG/10 ML SDV IVPUSH ONE (08:18)
[2025-04-04] MEDS: 50% Dextrose in Water 50 ML Syringe IVPUSH PRN (08:29)
[2025-04-04] MEDS: Insulin Regular, Human 100 Units/ML 10 ML Vial IV ONE (08:29)
[2025-04-04 08:43] LABS: ANION GAP 18.9 (5-15); CALCIUM 8.8 mg/dL (8.5-10.1); CREATININE 9.2 mg/dL (0.7-1.3); EST CRCL DRUG DOSING (CG) 8.3 mL/min
[2025-04-04 08:50] LABS: POTASSIUM,K 7.9 mEq/L (3.5-5.1)
[2025-04-04] MEDS: Cefepime 2 GM Vial IVPUSH ONE (08:56)
[2025-04-04] MEDS: VANCOmycin 2 GM/400 ML 2 GM in Premix Bag 1 BAG IV ONE (09:30)
[2025-04-04] MEDS: Sodium Chloride 0.9% 3,000 ML IV ONE (09:55)
== END 2025-04-04 10:55 ==
LOC: JD.ED 06:15
DX: A41.9 Sepsis, unspecified organism (principal); J18.9 Pneumonia, unspecified organism; N18.6 End stage renal disease; E11.22 Type 2 diabetes mellitus with diabetic chronic kidney disease; E87.5 Hyperkalemia; E87.70 Fluid overload, unspecified; Z99.2 Dependence on renal dialysis; Z88.2 Allergy status to sulfonamides; Z88.0 Allergy status to penicillin; E66.9 Obesity, unspecified; Z86.16 Personal history of COVID-19; Z90.49 Acquired absence of other specified parts of digestive tract; Z79.899 Other long term (current) drug therapy
CPT/HCPCS: 36415; 71045; 71260; 74177; 80048; 80053; 80307; 82140; 82947; 83605; 83690; 83735; 83880; 84484; 85025; 87040; 93005; 94640; 96361; 96365; 96375; 99285; J0612; J0692; J1815; J1938; J2405; J3372; J7030; J7620; Q9967; 93010; A9270-GY

== ENCOUNTER 2025-04-10 18:53 | Emergency (ER) | payer MEDICAID, MEDICARE, OTHER ==
[2025-04-10] MEDS: Sodium Chloride 0.9% 500 ML IV ONE (19:36)
[2025-04-10] MEDS: Sodium Chloride 0.9% 10 ML Syringe FLUSH PRN (19:42)
[2025-04-10 19:46] LABS: BASOPHILS ABSOLUTE AUTO 0.1 K/mm3 (0.0-0.2); BASOPHILS PERCENT AUTO 0.7 % (0.0-1.0); EOSINOPHILS PERCENT AUTO 0.5 % (0.0-6.0); HEMATOCRIT 43.7 % (42.0-52.0); HEMOGLOBIN 13.6 gm/dl (14.0-18.0); IMMATURE GRAN ABSOLUTE AUTO 0.02 K/mm3 (0.00-0.05); IMMATURE GRAN PERCENT AUTO 0.2 % (0.0-0.4); LYMPHOCYTES ABSOLUTE AUTO 0.7 K/mm3 (1.0-4.8); LYMPHOCYTES PERCENT AUTO 8.7 % (24.0-44.0); MEAN CORPUSCULAR HEMOGLOBIN 31.3 pg (28.0-32.0); MEAN CORPUSCULAR HGB CONC 31.1 g/dl (32.0-36.0); MEAN CORPUSCULAR VOLUME 100.5 fl (83.0-99.0); MEAN PLATELET VOLUME 11.5 fl (9.4-12.4); MONOCYTES ABSOLUTE AUTO 0.5 K/mm3 (0.0-0.8); MONOCYTES PERCENT AUTO 6.4 % (0.0-8.0); NEUTROPHILS ABSOLUTE AUTO 6.8 K/mm3 (1.8-7.7); NEUTROPHILS PERCENT AUTO 83.5 % (41.0-71.0); PLATELET COUNT,PLT 169 K/mm3 (150-400); RED BLOOD CELL COUNT 4.35 M/mm3 (4.52-5.90); WHITE BLOOD CELL COUNT,WBC 8.16 K/mm3 (3.9-11.3)
[2025-04-10 20:03] LABS: LACTIC ACID 2.7 mmol/L (0.4-2.0)
[2025-04-10 20:03] LABS: BICARBONATE,ARTERIAL 18.8 meq/L (22.0-26.0); O2 SATURATION ARTERIAL 90.3 % (96.0-97.0)
[2025-04-10 20:06] LABS: A/G RATIO 0.8 (1-2); ALANINE AMINOTRANSFERASE,ALT 18 U/L (16-63); ALBUMIN 3.7 g/dl (3.4-5.0); ALKALINE PHOSPHATASE 97 U/L (46-116); ANION GAP 25.3 (5-15); ASPARTATE AMNIOTRANSFERASE,AST 21 U/L (15-37); BILIRUBIN TOTAL 0.7 mg/dL (0.2-1.0); BLOOD UREA NITROGEN,BUN 15 mg/dL (7-18); BUN/CREATININE RATIO 2.7 (14-18); CALCIUM 10.1 mg/dL (8.5-10.1); CARBON DIOXIDE,CO2 22 mEq/L (21-32); CHLORIDE,CL 96 mEq/L (98-107); CREATININE 5.5 mg/dL (0.7-1.3); ESTIMATED GFR 11 mL/min (>60); GLUCOSE RANDOM 102 mg/dL (70-99); LIPASE 23 U/L (16-77); MAGNESIUM 2.2 mg/dL (1.8-2.4); PHOSPHORUS 5.8 mg/dL (2.6-4.7); POTASSIUM,K 4.3 mEq/L (3.5-5.1); PROTEIN TOTAL,TP 8.4 g/dl (6.4-8.2); SODIUM,NA 139 mEq/L (136-145); TROPONIN I HIGH SENSITIVITY 50 pg/mL (<=76)
[2025-04-10 20:13] LABS: ACETAMINOPHEN 0 ug/mL (10-30)
[2025-04-10 20:26] LABS: CORONAVIRUS COVID-19 NAA NEGATIVE (NEGATIVE); INFLUENZA A NAA NEGATIVE (NEGATIVE); RESPIRATORY SYNCYTIAL VIR NAA NEGATIVE (NEGATIVE)
[2025-04-10] MEDS: Sodium Chloride 0.9% 100 ML IV SCH (20:54)
[2025-04-10] MEDS: Iopamidol 755 Mg/ML 100 ML Bottle IVPUSH ONE (20:54)
== END 2025-04-10 23:15 ==
LOC: JD.ED 18:53
DX: R41.0 Disorientation, unspecified (principal); I11.0 Hypertensive heart disease with heart failure; I50.9 Heart failure, unspecified; I25.10 Atherosclerotic heart disease of native coronary artery without angina pectoris; I25.2 Old myocardial infarction; E78.00 Pure hypercholesterolemia, unspecified; I48.91 Unspecified atrial fibrillation; K21.9 Gastro-esophageal reflux disease without esophagitis; E11.9 Type 2 diabetes mellitus without complications; E03.9 Hypothyroidism, unspecified; E66.9 Obesity, unspecified; Z86.16 Personal history of COVID-19; Z79.02 Long term (current) use of antithrombotics/antiplatelets; Z79.899 Other long term (current) drug therapy; Z88.2 Allergy status to sulfonamides; Z88.0 Allergy status to penicillin; Z95.5 Presence of coronary angioplasty implant and graft
CPT/HCPCS: 0241U; 36415; 36600; 70450; 70496; 70498; 71045; 80053; 80143; 80179; 80307; 82140; 82803; 82947; 83605; 83690; 83735; 83880; 84100; 84443; 84484; 85025; 87040; 93005; 96360; 96361; 99285; J7030; Q9967

== ENCOUNTER 2025-04-22 07:57 | Emergency (ER) | payer OTHER ==
[2025-04-22 08:52] LABS: BASOPHILS ABSOLUTE AUTO 0.1 K/mm3 (0.0-0.2); BASOPHILS PERCENT AUTO 0.7 % (0.0-1.0); EOSINOPHILS ABSOLUTE AUTO 0.3 K/mm3 (0.0-0.4); EOSINOPHILS PERCENT AUTO 1.9 % (0.0-6.0); HEMATOCRIT 45.4 % (42.0-52.0); HEMOGLOBIN 13.6 gm/dl (14.0-18.0); IMMATURE GRAN ABSOLUTE AUTO 0.11 K/mm3 (0.00-0.05); IMMATURE GRAN PERCENT AUTO 0.8 % (0.0-0.4); LYMPHOCYTES ABSOLUTE AUTO 1.4 K/mm3 (1.0-4.8); LYMPHOCYTES PERCENT AUTO 10.4 % (24.0-44.0); MEAN CORPUSCULAR HEMOGLOBIN 30.6 pg (28.0-32.0); MEAN PLATELET VOLUME 11.3 fl (9.4-12.4); MONOCYTES ABSOLUTE AUTO 1.4 K/mm3 (0.0-0.8); MONOCYTES PERCENT AUTO 10.7 % (0.0-8.0); NEUTROPHILS ABSOLUTE AUTO 10.1 K/mm3 (1.8-7.7); NEUTROPHILS PERCENT AUTO 75.5 % (41.0-71.0); PLATELET COUNT,PLT 162 K/mm3 (150-400); RED BLOOD CELL COUNT 4.45 M/mm3 (4.52-5.90); WHITE BLOOD CELL COUNT,WBC 13.36 K/mm3 (3.9-11.3)
[2025-04-22] MEDS: Albuterol/Ipratropium 3.0-0.5 MG/3 ML Neb Soln NEB ONE (09:14)
[2025-04-22 09:24] LABS: A/G RATIO 0.8 (1-2); ALANINE AMINOTRANSFERASE,ALT 20 U/L (16-63); ALBUMIN 3.9 g/dl (3.4-5.0); ALKALINE PHOSPHATASE 107 U/L (46-116); ANION GAP 16.6 (5-15); ASPARTATE AMNIOTRANSFERASE,AST 20 U/L (15-37); BILIRUBIN TOTAL 0.6 mg/dL (0.2-1.0); BUN/CREATININE RATIO 5.9 (14-18); C-REACTIVE PROTEIN 0.82 mg/dL (<0.30); CALCIUM 10.2 mg/dL (8.5-10.1); CARBON DIOXIDE,CO2 28 mEq/L (21-32); CHLORIDE,CL 101 mEq/L (98-107); ESTIMATED GFR 6 mL/min (>60); GLUCOSE RANDOM 191 mg/dL (70-99); MAGNESIUM 2.3 mg/dL (1.8-2.4); PROTEIN TOTAL,TP 8.7 g/dl (6.4-8.2); SODIUM,NA 138 mEq/L (136-145); TROPONIN I HIGH SENSITIVITY 61 pg/mL (<=76)
[2025-04-22 10:08] LABS: BLOOD UREA NITROGEN,BUN 51 mg/dL (7-18); CREATININE 8.6 mg/dL (0.7-1.3)
[2025-04-22 10:09] LABS: POTASSIUM,K 7.6 mEq/L (3.5-5.1)
[2025-04-22] MEDS ORDERED: Insulin Regular, Human 100 Units/ML 3 ML Vial SUBCUT ONE (10:18)
[2025-04-22] MEDS: 50% Dextrose in Water 50 ML Syringe IVPUSH ONE (11:36)
[2025-04-22] MEDS: Calcium Gluconate 10% 1 GM/10 ML SDV IVPUSH ONE (11:38)
[2025-04-22] MEDS: Insulin Regular, Human 100 Units/ML 10 ML Vial SUBCUT ONE (11:43)
[2025-04-22] MEDS: Sodium Bicarbonate 8.4% 50 MEQ/50 ML Syringe IVPUSH ONE (11:44)
[2025-04-22] MEDS: HYDROmorphone 0.5 MG/0.5 ML Syringe IVPUSH ONE (11:49)
[2025-04-22] MEDS: methylPREDNISolone Sodium Succinate 125 MG/2 ML SDV IVPUSH ONE (11:51)
[2025-04-22] MEDS: methylPREDNISolone Sodium Succinate 125 MG/2 ML SDV ONE (11:51)
[2025-04-22] MEDS: Sodium Chloride 0.9% 10 ML Syringe FLUSH PRN (11:52)
[2025-04-22] MEDS: HYDROmorphone 0.5 MG/0.5 ML Syringe ONE (11:53)
== END 2025-04-22 12:30 ==
LOC: JD.ED 07:57
DX: J44.1 Chronic obstructive pulmonary disease with (acute) exacerbation (principal); I13.2 Hypertensive heart and chronic kidney disease with heart failure and with stage 5 chronic kidney disease, or end stage renal disease; I50.9 Heart failure, unspecified; N18.6 End stage renal disease; E87.6 Hypokalemia; I25.10 Atherosclerotic heart disease of native coronary artery without angina pectoris; I25.2 Old myocardial infarction; E78.00 Pure hypercholesterolemia, unspecified; K21.9 Gastro-esophageal reflux disease without esophagitis; E11.22 Type 2 diabetes mellitus with diabetic chronic kidney disease; E66.9 Obesity, unspecified; Z86.16 Personal history of COVID-19; Z95.1 Presence of aortocoronary bypass graft; F17.210 Nicotine dependence, cigarettes, uncomplicated; Z79.02 Long term (current) use of antithrombotics/antiplatelets; Z79.899 Other long term (current) drug therapy; Z88.0 Allergy status to penicillin; Z88.2 Allergy status to sulfonamides; Z99.2 Dependence on renal dialysis
CPT/HCPCS: 36415; 71045; 80053; 83735; 83880; 84484; 85025; 86140; 93005; 94640; 96374; 96375; 99285; J0612; J1815; J2919; J7620; 93010; A9270-GY; J3490

== ENCOUNTER 2025-05-30 11:53 | Emergency (ER) | payer OTHER ==
[2025-05-30 12:29] LABS: BASOPHILS ABSOLUTE AUTO 0.1 K/mm3 (0.0-0.2); BASOPHILS PERCENT AUTO 0.5 % (0.0-1.0); EOSINOPHILS ABSOLUTE AUTO 0.2 K/mm3 (0.0-0.4); EOSINOPHILS PERCENT AUTO 1.1 % (0.0-6.0); IMMATURE GRAN ABSOLUTE AUTO 0.10 K/mm3 (0.00-0.05); IMMATURE GRAN PERCENT AUTO 0.7 % (0.0-0.4); LYMPHOCYTES ABSOLUTE AUTO 2.0 K/mm3 (1.0-4.8); LYMPHOCYTES PERCENT AUTO 13.9 % (24.0-44.0); MEAN PLATELET VOLUME 12.2 fl (9.4-12.4); MONOCYTES ABSOLUTE AUTO 1.7 K/mm3 (0.0-0.8); MONOCYTES PERCENT AUTO 12.0 % (0.0-8.0); NEUTROPHILS ABSOLUTE AUTO 10.1 K/mm3 (1.8-7.7); NEUTROPHILS PERCENT AUTO 71.8 % (41.0-71.0); NRBC ABSOLUTE 0.02 (0.00-0.02); NRBC PERCENT 0.1 % (0.0-0.2); PLATELET COUNT,PLT 137 K/mm3 (150-400); RED BLOOD CELL COUNT 3.78 M/mm3 (4.52-5.90); WHITE BLOOD CELL COUNT,WBC 14.01 K/mm3 (3.9-11.3)
[2025-05-30 12:57] LABS: A/G RATIO 0.8 (1-2); ALANINE AMINOTRANSFERASE,ALT 21.0 U/L (16-63); ASPARTATE AMNIOTRANSFERASE,AST 15.0 U/L (15-37); BILIRUBIN TOTAL 0.5 mg/dL (0.2-1.0); BLOOD UREA NITROGEN,BUN 28.0 mg/dL (7-18); CARBON DIOXIDE,CO2 30.0 mEq/L (21-32); CHLORIDE,CL 97.0 mEq/L (98-107); EST CRCL DRUG DOSING (CG) 13.39 mL/min; ESTIMATED GFR 10.0 mL/min (>60); GLUCOSE RANDOM 203.0 mg/dL (70-99); PROTEIN TOTAL,TP 8.2 g/dl (6.4-8.2); SODIUM,NA 136.0 mEq/L (136-145); TROPONIN I HIGH SENSITIVITY 32.0 pg/mL (<=76)
[2025-05-30 13:06] LABS: CREATININE 5.7 mg/dL (0.7-1.3); POTASSIUM,K 4.8 mEq/L (3.5-5.1)
== END 2025-05-30 13:54 | disposition home or self-care (01) ==
LOC: JD.ED 11:53
DX: R55 Syncope and collapse (principal); I13.0 Hypertensive heart and chronic kidney disease with heart failure and stage 1 through stage 4 chronic kidney disease, or unspecified chronic kidney disease; I50.9 Heart failure, unspecified; I25.2 Old myocardial infarction; I25.10 Atherosclerotic heart disease of native coronary artery without angina pectoris; I48.91 Unspecified atrial fibrillation; E11.9 Type 2 diabetes mellitus without complications; E66.9 Obesity, unspecified; Z88.0 Allergy status to penicillin; N18.6 End stage renal disease; Z88.2 Allergy status to sulfonamides; Z79.899 Other long term (current) drug therapy; Z79.02 Long term (current) use of antithrombotics/antiplatelets; Z90.49 Acquired absence of other specified parts of digestive tract; Z86.16 Personal history of COVID-19; Z87.891 Personal history of nicotine dependence; Z68.29 Body mass index [BMI] 29.0-29.9, adult; Z99.2 Dependence on renal dialysis
CPT/HCPCS: 36415; 80053; 84484; 85025; 93005; 96360; 99284; A9270; J7030

== ENCOUNTER 2025-06-19 03:23 | Emergency (ER) | payer OTHER ==
[2025-06-19] MEDS ORDERED: Sodium Chloride 0.9% 10 ML Syringe FLUSH PRN (03:44)
[2025-06-19] MEDS: methylPREDNISolone Sodium Succinate 125 MG/2 ML SDV IVPUSH ONE (04:17)
[2025-06-19 04:23] LABS: BASOPHILS ABSOLUTE AUTO 0.1 K/mm3 (0.0-0.2); BASOPHILS PERCENT AUTO 0.8 % (0.0-1.0); EOSINOPHILS ABSOLUTE AUTO 0.2 K/mm3 (0.0-0.4); EOSINOPHILS PERCENT AUTO 1.6 % (0.0-6.0); IMMATURE GRAN ABSOLUTE AUTO 0.08 K/mm3 (0.00-0.05); IMMATURE GRAN PERCENT AUTO 0.6 % (0.0-0.4); LYMPHOCYTES ABSOLUTE AUTO 0.9 K/mm3 (1.0-4.8); LYMPHOCYTES PERCENT AUTO 7.4 % (24.0-44.0); MEAN PLATELET VOLUME 10.9 fl (9.4-12.4); MONOCYTES ABSOLUTE AUTO 0.9 K/mm3 (0.0-0.8); MONOCYTES PERCENT AUTO 7.3 % (0.0-8.0); NEUTROPHILS ABSOLUTE AUTO 10.2 K/mm3 (1.8-7.7); NEUTROPHILS PERCENT AUTO 82.3 % (41.0-71.0); NRBC ABSOLUTE 0.00 (0.00-0.02); NRBC PERCENT 0.0 % (0.0-0.2); PLATELET COUNT,PLT 161 K/mm3 (150-400); RED BLOOD CELL COUNT 3.47 M/mm3 (4.52-5.90); WHITE BLOOD CELL COUNT,WBC 12.44 K/mm3 (3.9-11.3)
[2025-06-19 04:26] LABS: APPEARANCE,URINE CLEAR (Clear); GLUCOSE,URINE 1+ (Negative); OCCULT BLOOD,URINE 2+ (Negative)
[2025-06-19 04:55] LABS: A/G RATIO 0.9 (1-2); ALANINE AMINOTRANSFERASE,ALT 20.0 U/L (16-63); ASPARTATE AMNIOTRANSFERASE,AST 16.0 U/L (15-37); BILIRUBIN TOTAL 0.6 mg/dL (0.2-1.0); BLOOD UREA NITROGEN,BUN 72.0 mg/dL (7-18); CARBON DIOXIDE,CO2 29.0 mEq/L (21-32); CHLORIDE,CL 96.0 mEq/L (98-107); CREATININE 10.2 mg/dL (0.7-1.3); EST CRCL DRUG DOSING (CG) 6.57 mL/min; ESTIMATED GFR 5.0 mL/min (>60); GLUCOSE RANDOM 284.0 mg/dL (70-99); PROTEIN TOTAL,TP 7.5 g/dl (6.4-8.2); SODIUM,NA 135.0 mEq/L (136-145); TROPONIN I HIGH SENSITIVITY 35.0 pg/mL (<=76)
[2025-06-19 05:16] LABS: POTASSIUM,K 7.6 mEq/L (3.5-5.1)
[2025-06-19] MEDS: Insulin Regular, Human 100 Units/ML 3 ML Vial SUBCUT ONE (05:36)
[2025-06-19] MEDS: Calcium Gluconate 10% 1 GM/10 ML SDV IVPUSH ONE (05:37)
[2025-06-19] MEDS: 50% Dextrose in Water 50 ML Syringe IVPUSH ONE (05:37)
[2025-06-19 05:42] LABS: EPITHELIAL CELLS,URINE 0-5 /hpf (0-5)
== END 2025-06-19 08:10 ==
LOC: JD.ED 03:23
DX: J44.1 Chronic obstructive pulmonary disease with (acute) exacerbation (principal); I13.2 Hypertensive heart and chronic kidney disease with heart failure and with stage 5 chronic kidney disease, or end stage renal disease; I50.9 Heart failure, unspecified; N18.6 End stage renal disease; E87.5 Hyperkalemia; E78.00 Pure hypercholesterolemia, unspecified; K21.9 Gastro-esophageal reflux disease without esophagitis; E11.9 Type 2 diabetes mellitus without complications; F17.200 Nicotine dependence, unspecified, uncomplicated; Z86.16 Personal history of COVID-19; Z90.49 Acquired absence of other specified parts of digestive tract; Z88.0 Allergy status to penicillin; Z88.2 Allergy status to sulfonamides; Z79.51 Long term (current) use of inhaled steroids; Z79.899 Other long term (current) drug therapy; Z99.2 Dependence on renal dialysis
CPT/HCPCS: 36415; 71045; 80053; 81001; 83735; 84484; 85025; 86140; 93005; 94640; 96374; 96375; 96376; 99285; J0612; J1815; J2919; J7620; 93010; A9270-GY; J1171

== ENCOUNTER 2025-07-30 00:26 | Emergency (ER) | payer OTHER ==
[2025-07-30] MEDS: Budesonide 0.5 MG/2 ML Neb Susp NEB ONE (01:36)
[2025-07-30] MEDS: methylPREDNISolone Sodium Succinate 125 MG/2 ML SDV IVPUSH ONE (02:10)
[2025-07-30 02:12] LABS: BASOPHILS ABSOLUTE AUTO 0.1 K/mm3 (0.0-0.2); BASOPHILS PERCENT AUTO 0.7 % (0.0-1.0); EOSINOPHILS ABSOLUTE AUTO 0.6 K/mm3 (0.0-0.4); EOSINOPHILS PERCENT AUTO 4.8 % (0.0-6.0); IMMATURE GRAN ABSOLUTE AUTO 0.06 K/mm3 (0.00-0.05); IMMATURE GRAN PERCENT AUTO 0.5 % (0.0-0.4); LYMPHOCYTES ABSOLUTE AUTO 1.9 K/mm3 (1.0-4.8); LYMPHOCYTES PERCENT AUTO 15.6 % (24.0-44.0); MEAN PLATELET VOLUME 11.9 fl (9.4-12.4); MONOCYTES ABSOLUTE AUTO 1.3 K/mm3 (0.0-0.8); MONOCYTES PERCENT AUTO 10.6 % (0.0-8.0); NEUTROPHILS ABSOLUTE AUTO 8.2 K/mm3 (1.8-7.7); NEUTROPHILS PERCENT AUTO 67.8 % (41.0-71.0); NRBC ABSOLUTE 0.00 (0.00-0.02); NRBC PERCENT 0.0 % (0.0-0.2); PLATELET COUNT,PLT 118 K/mm3 (150-400); RED BLOOD CELL COUNT 3.42 M/mm3 (4.52-5.90); WHITE BLOOD CELL COUNT,WBC 12.10 K/mm3 (3.9-11.3)
[2025-07-30 02:48] LABS: A/G RATIO 1.0 (1-2); ALANINE AMINOTRANSFERASE,ALT 22 U/L (16-63); ASPARTATE AMNIOTRANSFERASE,AST 19 U/L (15-37); BILIRUBIN TOTAL 0.6 mg/dL (0.2-1.0); BLOOD UREA NITROGEN,BUN 42 mg/dL (7-18); CARBON DIOXIDE,CO2 32 mEq/L (21-32); CHLORIDE,CL 97 mEq/L (98-107); CREATININE 8.7 mg/dL (0.7-1.3); ESTIMATED GFR 6 mL/min (>60); GLUCOSE RANDOM 203 mg/dL (70-99); PROTEIN TOTAL,TP 7.3 g/dl (6.4-8.2); SODIUM,NA 139 mEq/L (136-145); TROPONIN I HIGH SENSITIVITY 40 pg/mL (<=76)
[2025-07-30 03:18] LABS: POTASSIUM,K 6.1 mEq/L (3.5-5.1)
[2025-07-30] MEDS: Iopamidol 612 MG/ML 100 ML Bottle IVPUSH ONE (04:07)
[2025-07-30] MEDS: methylPREDNISolone Sodium Succinate 2 GM Vial IV ONE (06:06)
== END 2025-07-30 08:30 | disposition home or self-care (01) ==
LOC: JD.ED 00:26
DX: J44.9 Chronic obstructive pulmonary disease, unspecified (principal); N18.6 End stage renal disease; E87.5 Hyperkalemia; Z88.0 Allergy status to penicillin; Z88.2 Allergy status to sulfonamides; Z79.899 Other long term (current) drug therapy; Z99.2 Dependence on renal dialysis
CPT/HCPCS: 36415; 71045; 71250; 80053; 83880; 84132; 84484; 85025; 87040; 93005; 94640; 96365; 96367; 96375; 99285; A9270; J0456; J0696; J2919; J7050; J7620; 99284; J3490

== ENCOUNTER 2025-07-31 18:45 | Emergency (ER) | payer OTHER ==
[2025-07-31] MEDS: Budesonide 0.5 MG/2 ML Neb Susp NEB ONE (20:10)
[2025-07-31 20:20] LABS: BASOPHILS ABSOLUTE AUTO 0.0 K/mm3 (0.0-0.2); BASOPHILS PERCENT AUTO 0.4 % (0.0-1.0); EOSINOPHILS ABSOLUTE AUTO 0.1 K/mm3 (0.0-0.4); EOSINOPHILS PERCENT AUTO 0.8 % (0.0-6.0); IMMATURE GRAN ABSOLUTE AUTO 0.08 K/mm3 (0.00-0.05); IMMATURE GRAN PERCENT AUTO 0.8 % (0.0-0.4); LYMPHOCYTES ABSOLUTE AUTO 1.2 K/mm3 (1.0-4.8); LYMPHOCYTES PERCENT AUTO 11.8 % (24.0-44.0); MEAN PLATELET VOLUME 11.5 fl (9.4-12.4); MONOCYTES ABSOLUTE AUTO 0.9 K/mm3 (0.0-0.8); MONOCYTES PERCENT AUTO 8.8 % (0.0-8.0); NEUTROPHILS ABSOLUTE AUTO 7.9 K/mm3 (1.8-7.7); NEUTROPHILS PERCENT AUTO 77.4 % (41.0-71.0); NRBC ABSOLUTE 0.02 (0.00-0.02); NRBC PERCENT 0.2 % (0.0-0.2); PLATELET COUNT,PLT 138 K/mm3 (150-400); RED BLOOD CELL COUNT 3.08 M/mm3 (4.52-5.90); WHITE BLOOD CELL COUNT,WBC 10.17 K/mm3 (3.9-11.3)
[2025-07-31 20:49] LABS: A/G RATIO 1.0 (1-2); ALANINE AMINOTRANSFERASE,ALT 25.0 U/L (16-63); ASPARTATE AMNIOTRANSFERASE,AST 15.0 U/L (15-37); BILIRUBIN TOTAL 0.7 mg/dL (0.2-1.0); BLOOD UREA NITROGEN,BUN 30.0 mg/dL (7-18); CARBON DIOXIDE,CO2 32.0 mEq/L (21-32); CHLORIDE,CL 94.0 mEq/L (98-107); CREATININE 6.0 mg/dL (0.7-1.3); EST CRCL DRUG DOSING (CG) 9.23 mL/min; ESTIMATED GFR 10.0 mL/min (>60); GLUCOSE RANDOM 286.0 mg/dL (70-99); POTASSIUM,K 4.4 mEq/L (3.5-5.1); PROTEIN TOTAL,TP 7.0 g/dl (6.4-8.2); SODIUM,NA 138.0 mEq/L (136-145)
== END 2025-07-31 22:10 | disposition home or self-care (01) ==
LOC: JD.ED 18:45
DX: J44.1 Chronic obstructive pulmonary disease with (acute) exacerbation (principal); I48.91 Unspecified atrial fibrillation; I13.0 Hypertensive heart and chronic kidney disease with heart failure and stage 1 through stage 4 chronic kidney disease, or unspecified chronic kidney disease; I50.9 Heart failure, unspecified; N18.6 End stage renal disease; I25.10 Atherosclerotic heart disease of native coronary artery without angina pectoris; K21.9 Gastro-esophageal reflux disease without esophagitis; E11.22 Type 2 diabetes mellitus with diabetic chronic kidney disease; Z88.0 Allergy status to penicillin; Z88.2 Allergy status to sulfonamides; Z79.02 Long term (current) use of antithrombotics/antiplatelets; Z79.899 Other long term (current) drug therapy; Z86.16 Personal history of COVID-19
CPT/HCPCS: 36415; 71046; 71046-26; 80053; 85025; 93005; 94640; 94762; 99285; A9270-GY

== ENCOUNTER 2025-09-22 17:45 | Emergency (ER) | payer MEDICARE, MEDICAID ==
[2025-09-22] MEDS ORDERED: Sodium Chloride 0.9% 10 ML Syringe FLUSH PRN (18:14)
[2025-09-22 18:24] LABS: BASOPHILS ABSOLUTE AUTO 0.1 K/mm3 (0.0-0.2); BASOPHILS PERCENT AUTO 0.6 % (0.0-1.0); EOSINOPHILS ABSOLUTE AUTO 0.2 K/mm3 (0.0-0.4); EOSINOPHILS PERCENT AUTO 1.7 % (0.0-6.0); IMMATURE GRAN ABSOLUTE AUTO 0.06 K/mm3 (0.00-0.05); IMMATURE GRAN PERCENT AUTO 0.5 % (0.0-0.4); LYMPHOCYTES ABSOLUTE AUTO 1.6 K/mm3 (1.0-4.8); LYMPHOCYTES PERCENT AUTO 13.8 % (24.0-44.0); MEAN PLATELET VOLUME 11.4 fl (9.4-12.4); MONOCYTES ABSOLUTE AUTO 0.8 K/mm3 (0.0-0.8); MONOCYTES PERCENT AUTO 6.8 % (0.0-8.0); NEUTROPHILS ABSOLUTE AUTO 9.1 K/mm3 (1.8-7.7); NEUTROPHILS PERCENT AUTO 76.6 % (41.0-71.0); NRBC ABSOLUTE 0.00 (0.00-0.02); NRBC PERCENT 0.0 % (0.0-0.2); PLATELET COUNT,PLT 200 K/mm3 (150-400); RED BLOOD CELL COUNT 2.56 M/mm3 (4.52-5.90); WHITE BLOOD CELL COUNT,WBC 11.82 K/mm3 (3.9-11.3)
[2025-09-22 18:44] LABS: A/G RATIO 0.8 (1-2); ASPARTATE AMNIOTRANSFERASE,AST 14 U/L (15-37); BILIRUBIN TOTAL 1.0 mg/dL (0.2-1.0); BLOOD UREA NITROGEN,BUN 21 mg/dL (7-18); CARBON DIOXIDE,CO2 34 mEq/L (21-32); CHLORIDE,CL 99 mEq/L (98-107); CREATININE 5.7 mg/dL (0.7-1.3); ESTIMATED GFR 10 mL/min (>60); GLUCOSE RANDOM 165 mg/dL (70-99); POTASSIUM,K 4.3 mEq/L (3.5-5.1); PROTEIN TOTAL,TP 8.1 g/dl (6.4-8.2); SODIUM,NA 141 mEq/L (136-145); TROPONIN I HIGH SENSITIVITY 34 pg/mL (<=76)
[2025-09-22 18:46] LABS: ETHANOL BLOOD MEDICAL 0.00 gm% (0.00)
[2025-09-22] MEDS: Iopamidol 612 MG/ML 100 ML Bottle IVPUSH ONE (19:02)
[2025-09-22] MEDS: Sodium Chloride 0.9% 10 ML Syringe FLUSH ONE (19:02)
[2025-09-22 19:04] LABS: ALANINE AMINOTRANSFERASE,ALT 15 U/L (16-63)
[2025-09-22] MEDS: Ketorolac 15 MG/ML SDV IVPUSH ONE (19:55)
[2025-09-22] MEDS ORDERED: Naloxone 0.4 MG/ML SDV IVPUSH PRN (20:54)
[2025-09-22] MEDS: Furosemide 40 MG/4 ML VIAL IVPUSH ONE (21:00)
== END 2025-09-22 21:11 | disposition home or self-care (01) ==
LOC: JD.ED 17:45
DX: K31.84 Gastroparesis (principal); I13.2 Hypertensive heart and chronic kidney disease with heart failure and with stage 5 chronic kidney disease, or end stage renal disease; I50.9 Heart failure, unspecified; N18.6 End stage renal disease; E87.70 Fluid overload, unspecified; E11.22 Type 2 diabetes mellitus with diabetic chronic kidney disease; I25.10 Atherosclerotic heart disease of native coronary artery without angina pectoris; E78.00 Pure hypercholesterolemia, unspecified; I25.2 Old myocardial infarction; E66.9 Obesity, unspecified; Z86.16 Personal history of COVID-19; Z90.49 Acquired absence of other specified parts of digestive tract; Z87.891 Personal history of nicotine dependence; Z88.0 Allergy status to penicillin; Z88.2 Allergy status to sulfonamides; Z79.899 Other long term (current) drug therapy; Z99.2 Dependence on renal dialysis
CPT/HCPCS: 36415; 71045; 74177; 80053; 80307; 83690; 83735; 83880; 84484; 85025; 87428; 93005; 96361; 96374; 96375; 99284; J1938; J2270; J7030; Q9967

== ENCOUNTER 2025-10-13 23:03 | Emergency (ER) | payer MEDICARE, MEDICAID ==
[2025-10-13 23:25] LABS: BASOPHILS ABSOLUTE AUTO 0.1 K/mm3 (0.0-0.2); BASOPHILS PERCENT AUTO 0.3 % (0.0-1.0); EOSINOPHILS ABSOLUTE AUTO 0.1 K/mm3 (0.0-0.4); EOSINOPHILS PERCENT AUTO 0.4 % (0.0-6.0); IMMATURE GRAN ABSOLUTE AUTO 0.08 K/mm3 (0.00-0.05); IMMATURE GRAN PERCENT AUTO 0.5 % (0.0-0.4); LYMPHOCYTES ABSOLUTE AUTO 1.1 K/mm3 (1.0-4.8); LYMPHOCYTES PERCENT AUTO 6.5 % (24.0-44.0); MEAN PLATELET VOLUME 12.2 fl (9.4-12.4); MONOCYTES ABSOLUTE AUTO 1.2 K/mm3 (0.0-0.8); MONOCYTES PERCENT AUTO 7.1 % (0.0-8.0); NEUTROPHILS ABSOLUTE AUTO 13.9 K/mm3 (1.8-7.7); NEUTROPHILS PERCENT AUTO 85.2 % (41.0-71.0); NRBC ABSOLUTE 0.02 (0.00-0.02); NRBC PERCENT 0.1 % (0.0-0.2); PLATELET COUNT,PLT 177 K/mm3 (150-400); RED BLOOD CELL COUNT 2.91 M/mm3 (4.52-5.90); WHITE BLOOD CELL COUNT,WBC 16.30 K/mm3 (3.9-11.3)
[2025-10-13] MEDS: Diltiazem 25 MG/5 ML SDV IVPUSH ONE (23:32)
[2025-10-13] MEDS: LORazepam 2 MG/ML SDV IVPUSH STA (23:34)
[2025-10-13] MEDS: cefTRIAXone 1 GM in Water For Injection, Sterile 10 ML IVPUSH ONE (23:40)
[2025-10-13] MEDS: methylPREDNISolone Sodium Succinate 125 MG/2 ML SDV IVPUSH ONE (23:41)
[2025-10-13 23:43] LABS: INR 1.03
[2025-10-13 23:43] LABS: BASE EXCESS ARTERIAL 3.3 (-2-2.0); BICARBONATE,ARTERIAL 27.8 meq/L (22.0-26.0); O2 SATURATION ARTERIAL 88.3 % (96.0-97.0); PCO2 ARTERIAL 41.0 mmHg (35.0-45.0); PO2 ARTERIAL 58.0 mmHg (80.0-100.0)
[2025-10-13 23:53] LABS: A/G RATIO 0.9 (1-2); ALANINE AMINOTRANSFERASE,ALT 14.0 U/L (16-63); ASPARTATE AMNIOTRANSFERASE,AST 15.0 U/L (15-37); BILIRUBIN TOTAL 0.7 mg/dL (0.2-1.0); BLOOD UREA NITROGEN,BUN 40.0 mg/dL (7-18); CARBON DIOXIDE,CO2 26.0 mEq/L (21-32); CHLORIDE,CL 100.0 mEq/L (98-107); CREATINE KINASE,CK 24.0 U/L (39-308); CREATININE 7.7 mg/dL (0.7-1.3); EST CRCL DRUG DOSING (CG) 9.78 mL/min; ESTIMATED GFR 7.0 mL/min (>60); GLUCOSE RANDOM 142.0 mg/dL (70-99); PROTEIN TOTAL,TP 7.5 g/dl (6.4-8.2); SODIUM,NA 137.0 mEq/L (136-145); TROPONIN I HIGH SENSITIVITY 29.0 pg/mL (<=76)
[2025-10-14 00:05] LABS: POTASSIUM,K 7.4 mEq/L (3.5-5.1)
[2025-10-14 00:06] LABS: ETHANOL BLOOD MEDICAL 0.0 gm% (0.00)
[2025-10-14] MEDS ORDERED: Calcium Chloride 10% 1 GM/10 ML Syringe IVPUSH ONE (00:22)
[2025-10-14] MEDS: Insulin Regular, Human 100 Units/ML 10 ML Vial IV STA (00:44)
[2025-10-14] MEDS: 50% Dextrose in Water 50 ML Syringe IVPUSH STA (00:46)
[2025-10-14] MEDS: Furosemide 100 MG/10 ML SDV IVPUSH ONE (00:49)
[2025-10-14] MEDS: Calcium Chloride 10% 1 GM/10 ML Syringe IVPUSH ONE (00:55)
== END 2025-10-14 02:54 ==
LOC: JD.ED 23:03
DX: J18.9 Pneumonia, unspecified organism (principal); E87.5 Hyperkalemia; R53.1 Weakness; I11.0 Hypertensive heart disease with heart failure; I13.2 Hypertensive heart and chronic kidney disease with heart failure and with stage 5 chronic kidney disease, or end stage renal disease; I50.9 Heart failure, unspecified; I25.10 Atherosclerotic heart disease of native coronary artery without angina pectoris; I25.2 Old myocardial infarction; I48.91 Unspecified atrial fibrillation; E11.22 Type 2 diabetes mellitus with diabetic chronic kidney disease; E66.9 Obesity, unspecified; M19.90 Unspecified osteoarthritis, unspecified site; N18.6 End stage renal disease; J44.9 Chronic obstructive pulmonary disease, unspecified; K21.9 Gastro-esophageal reflux disease without esophagitis; Z79.899 Other long term (current) drug therapy; Z88.0 Allergy status to penicillin; Z88.2 Allergy status to sulfonamides; Z90.49 Acquired absence of other specified parts of digestive tract; Z68.30 Body mass index [BMI] 30.0-30.9, adult
CPT/HCPCS: 36415; 36600; 71045; 80053; 80307; 82550; 82803; 83690; 83735; 83880; 84132; 84484; 85025; 85610; 87428; 93005; 94640; A9270; J0456; J0696; J1163; J1815; J1938; J2060; J3490; J7050; 93010; 96365; 96375; 99285; 99285-25; J2919